=== PATIENT | female | born 1995 ===

== ENCOUNTER 2018-02-11 05:31 | Outpatient (CLI) | payer SELFPAY ==
[~2018-02-11] VITALS: Ht 177.8 cm; Wt 97.5 kg
== END 2018-02-11 11:14 | disposition home or self-care (01) ==
LOC: PREOP 05:31
PROVIDERS: ATTEND Otolaryngology Otolaryngology/Facial Plastic Surgery
DX: Z01.818 Encounter for other preprocedural examination (principal)

== ENCOUNTER 2018-02-15 06:20 | Day surgery (SDC) | payer BC ==
[~2018-02-15] VITALS: Ht 177.8 cm; Wt 97.5 kg
--- OUTSIDE RECORDS SUMMARY | 2018-02-15 06:23 | XMS REPORT ---
Author Author [facility] Medical Staff Organization [facility] Address [address] [place] [id number] Phone [phone] Summary purpose TRANSITION OF CARE AUTO GENERATION Chief Complaint and Reason for Visit No authorized Reason for Visit (Admitting Diagnosis) is available for this visit. Problem list No authorized problems tracked for continuity of care are available for this visit. Encounters No authorized problems tracked for encounter diagnoses are available for this visit. Medications No medications recorded for this patient visit Allergies, adverse reactions, alerts Allergen Category Ingredient Status Reaction Severity Onset Penicillins Drug Allergy Penicillins Confirmed or Verified Immunizations No immunizations recorded for this patient visit Relevant diagnostic tests and/or laboratory data No authorized results are available for this patient visit History of procedures No procedures recorded for this patient visit. Functional status No functional or cognitive status observations are available for this visit. Vital signs No authorized vital signs are available for this visit. Social history No Social History or smoking status observations were recorded for this visit. ( Unknown if ever smoked.) Treatment Plan No treatment plan text is available for this visit. Hospital discharge instructions No discharge instruction text is available for this visit.
--- OUTSIDE RECORDS SUMMARY | 2018-02-15 06:23 | XMS REPORT ---
Author Author [facility] [employer] [facility] Medical Staff Organization [facility] Address [address] [place] [id number] Phone [phone] Summary purpose TRANSITION OF CARE AUTO GENERATION [...] visit Relevant diagnostic tests and/or laboratory data RESULTS [facility] ([facility]) [id number] Result Normal Range Units Chlamydia Trachomatis DNA NOT DETECTED NOT DETECTED Neisseria Gonorrhea DNA NOT DETECTED NOT DETECTED Notes SEE NOTE This test was performed using the APTIMA COMBO2 Assay ([employer] The analytical performance characteristics of this assay, when used to test SurePath specimens have been determined by [employer]. TEST PERFORMED AT: [facility] [id number] [place] [address] KALPANA PAIGE DO,MPH Reference Lab ([facility]) [id number]:00 Result Normal Range Units Chlamydia Trachomatis DNA NOT DETECTED NOT DETECTED Neisseria Gonorrhea DNA NOT DETECTED NOT DETECTED Notes SEE NOTE This test was performed using the APTIMA COMBO2 Assay ([employer] The analytical performance characteristics of this assay, when used to test SurePath specimens have been determined by [facility] [facility]. TEST PERFORMED AT: [facility] [address] [place] [address] KALPANA PAIGE DO,MPH History of procedures Procedure Code Code Type Description Date Performed Performing Physician [id number] CPT-4 CHYLMD TRACH, DNA, AMP PROBE 11-01-2015 KONG SHINE Functional status No functional or cognitive status [...]
--- OUTSIDE RECORDS SUMMARY | 2018-02-15 06:24 | XMS REPORT | Clinical Summary ---
Author Author Admin, [employer] Organization [employer] Address Unknown Phone Unavailable Allergies, Adverse Reactions, Alerts Allergy Name Reaction Description Start Date Severity Status Provider PCN Critical Active Daniele Mcfadden DO Conditions or Problems Problem Name Problem Code Onset Date Status Entry Date Provider Comment Standard Description Annotate ALLERGIC RHINITIS 477.9 Resolved Errol Pack MD Allergic rhinitis, cause unspecified CONCUSSION WITH LOC OF 30 MINUTES OR LESS 850.11 Resolved 11/26 Margarito Kelley MD Concussion with loss of consciousness of 30 minutes or less ASTHMA 493.90 Active Margarito Kelley MD Asthma, unspecified BRONCHITIS, ACUTE 466.0 Resolved Errol Pack MD Acute bronchitis COSTOCHONDRITIS, ACUTE 733.6 Resolved Errol Pack MD Tietze's disease PLANTAR WART 078.12 Resolved Whitley Hernandez Plantar wart KNEE PAIN, RIGHT 719.46 Resolved Errol Pack MD Pain in joint involving lower leg ATHLETIC PHYSICAL, NORMAL V70.3 Resolved Errol Pack MD Other general medical examination for administrative purposes MUSCLE RUPTURE, NONTRAUMATIC 728.83 Resolved Errol Pack MD Rupture of muscle, nontraumatic Abdominal pain 789.00 Correction Errol Pack MD Abdominal pain, unspecified site Biliary dyskinesia 575.8 Resolved Whitley Hernandez Other specified disorders of gallbladder U R I 465.9 Inactive Daniele Mcfadden DO Acute upper respiratory infections of unspecified site Abdominal pain 789.00 Resolved Kendell Coronado MD Abdominal pain, unspecified site Ankle sprain 845.00 Resolved Kendell Coronado MD Unspecified site of ankle sprain Pharyngitis 462 Resolved Annita Mejia MD PhD Acute pharyngitis Sinusitis, acute 461.9 Resolved Margarito Kelley MD Acute sinusitis, unspecified Fatigue 780.79 Resolved Margarito Kelley MD Other malaise and fatigue Vaccination against influenza V04.81 Resolved Margarito Kelley MD Need for prophylactic vaccination and inoculation against influenza Flank pain, right 789.09 Resolved Margarito Kelley MD Abdominal pain, other specified site; multiple sites Pharyngitis, acute 462 Resolved Margarito Kelley MD Acute pharyngitis Knee pain, left 719.46 Resolved Margarito Kelley MD Pain in joint involving lower leg Upper respiratory infection, viral 465.9 Resolved Whitley Hernandez Acute upper respiratory infections of unspecified site Sinusitis 473.9 Resolved Whitley Hernandez Unspecified sinusitis (chronic) Eustachian tube dysfunction, right 381.81 Resolved Whitley Hernandez Dysfunction of Eustachian tube Pharyngitis-Acute 462 Resolved Whitley Hernandez Acute pharyngitis URI 465.9 Resolved Whitley Hernandez Acute upper respiratory infections of unspecified site Allergic rhinitis 477.9 Resolved Whitley Hernandez Allergic rhinitis, cause unspecified Acute rhinosinusitis 461.9 Resolved Whitley Hernandez Acute sinusitis, unspecified Fever 780.60 Resolved Whitley Hernandez Fever, unspecified Immunization due V15.83 Resolved Whitley Hernandez Personal history of underimmunization status U R I 465.9 Resolved Daniele Mcfadden DO Acute upper respiratory infections of unspecified site Pharyngitis-Acute 462 Resolved Daniele Mcfadden DO Acute pharyngitis Hypertrophy, nasal turbinates 478.0 Active Whitley Hernandez Hypertrophy of nasal turbinates Chronic tonsillitis 474.00 Active Daniele Mcfadden DO Chronic tonsillitis Body Mass Index 31.0-31.9 Adult Active Daniele Mcfadden DO Body Mass Index 31.0-31.9, adult ALLERGIC RHINITIS ICD-477.9 Inactive Errol Pack MD CONCUSSION WITH LOC OF 30 MINUTES OR LESS ICD-850.11 Inactive Margarito Kelley MD BRONCHITIS, ACUTE ICD-466.0 Inactive Errol Pack MD COSTOCHONDRITIS, ACUTE ICD-733.6 Inactive Errol Pack MD PLANTAR WART ICD-078.12 Inactive Katie Gipson LPN KNEE PAIN, RIGHT ICD-719.46 Inactive Errol Pack MD ATHLETIC PHYSICAL, NORMAL ICD-V70.3 Inactive Errol Pack MD MUSCLE RUPTURE, NONTRAUMATIC ICD-728.83 Inactive Errol Pack MD Abdominal pain ICD-789.00 Inactive Errol Pack MD Biliary dyskinesia ICD-575.8 Inactive Katie Gipson CARTON LINER U R I ICD-465.9 Inactive Daniele Mcfadden DO Abdominal pain ICD-789.00 Inactive Kendell Coronado MD Ankle sprain ICD-845.00 Inactive Kendell Coronado MD Pharyngitis ICD-462 Inactive Annita Mejia MD PhD Sinusitis, acute ICD-461.9 Inactive Margarito Kelley MD Fatigue ICD-780.79 Inactive Margarito Kelley MD 2014 Vaccination against influenza ICD-V04.81 Inactive Margarito Kelley MD Flank pain, right ICD-789.09 Inactive Margarito Kelley MD Pharyngitis, acute ICD-462 Inactive Margarito Kelley MD Knee pain, left ICD-719.46 Inactive Margarito Kelley MD Upper respiratory infection, viral ICD-465.9 Inactive Katie Brandan BOWMAN Sinusitis ICD-473.9 Inactive Katie Gipson LPN 2017 Eustachian tube dysfunction, right ICD-381.81 Inactive Katie Gipson CARTON LINER Pharyngitis-Acute ICD-462 Inactive Katie Gipson CARTON LINER URI ICD-465.9 Inactive Katie Gipson CARTON LINER Allergic rhinitis ICD-477.9 Inactive Katie Gipson CARTON LINER Acute rhinosinusitis ICD-461.9 Inactive Katie Gipson LPN Fever ICD-780.60 Inactive Katie Gipson LPN Immunization due ICD-V15.83 Inactive Katie Gipson LPN U R I ICD-465.9 Inactive Holly Sharma Pharyngitis-Acute ICD-462 Inactive Daniele Mcfadden DO Medication List Medication Instructions Start Date Stop Date Generic Name NDC Status Provider Patient Instruction PREDNISONE 20 MG ORAL TABLET 2 tabs by mouth today, then 1 tab tomorrow 08/30 PREDNISONE 51278971262 No Longer Active Daniele Mcfadden DO Active FLUTICASONE PROPIONATE 50 MCG/ACT NASAL SUSPENSION 1 spray each nostril twice daily until bottle empty FLUTICASONE PROPIONATE 22525020142 Active Daniele Mcfadden DO Active PREDNISONE 10 MG ORAL TABLET 2 TABS BY MOUTH TODAY, THEN 1 TAB BY MOUTH DAYS 2 -5 PREDNISONE 10192246473 No Longer Active Daniele Mcfadden DO Active PREDNISONE 20 MG ORAL TABLET two tabs by mouth today, then one tab by mouth days two and three PREDNISONE 02396506812 No Longer Active Whitley Hernandez Active AZITHROMYCIN 250 MG ORAL TABLET 2 po qd x 1 day, then 1 po qd x 4 days 07/24 AZITHROMYCIN 29280444582 No Longer Active Daniele Mcfadden DO Active IRVING-D ALLERGY & CONGESTION 60-120 MG ORAL TABLET EXTENDED RELEASE 12 HOUR 1 tablet twice daily as needed for congestion/allergies FEXOFENADINE-PSEUDOEPHEDRINE 19816916239 Active Holly Sharma Active PREDNISONE 20 MG ORAL TABLET 2 tabs daily for 3 days, 1 tab daily for 3 days, 1/2 tab daily for 2 days start tomorrow 07/31/16 PREDNISONE 54650479715 No Longer Active Jillina Frazell BRICKMASON SUPERVISOR Active AZITHROMYCIN 250 MG ORAL TABLET 2 po qd x 1 day, then 1 po qd x 4 days 08/30 AZITHROMYCIN 53661146921 No Longer Active Jillina Jiml BRICKMASON SUPERVISOR Active MUCINEX D 60-600 MG ORAL TABLET EXTENDED RELEASE 12 HOUR 1 po BID PRN Congestion PSEUDOEPHEDRINE-GUAIFENESIN 73305848316 No Longer Active Jessika Nunes APRN Active CEFDINIR 300 MG ORAL CAPSULE 1 po BID x 10 days CEFDINIR 90742153552 No Longer Active Ezekielllina Alexandru BRICKMASON SUPERVISOR Active PREDNISONE 20 MG ORAL TABLET 2 tabs daily for 3 days, 1 tab daily for 3 days, 1/2 tab daily for 2 days PREDNISONE 57987330543 No Longer Active Ezekielllina Jiml BRICKMASON SUPERVISOR Active FLUTICASONE PROPIONATE 50 MCG/ACT NASAL SUSPENSION 1 to 2 sprays each nostril daily FLUTICASONE PROPIONATE 83769645281 No Longer Active Ezekielllina Alexandru BRICKMASON SUPERVISOR Active GUAIFENESIN ER 600 MG ORAL TABLET EXTENDED RELEASE 12 HOUR 1 twice a day as needed for congestion GUAIFENESIN 06891468542 No Longer Active Ezekielllina Alexandru BRICKMASON SUPERVISOR Active CEFDINIR 300 MG ORAL CAPSULE by mouth twice a day CEFDINIR 89728636180 No Longer Active Ezekielllina Alexandru ONTIVEROSN Active PREDNISONE 20 MG ORAL TABLET 1 tablet twice daily for 2 days, then 1 tablet once daily for 2 days PREDNISONE 50902909817 No Longer Active Jillina Jiml BRICKMASON SUPERVISOR Active PREDNISONE 20 MG ORAL TABLET 2 tabs daily for 3 days, 1 tab daily for 3 days, 1/2 tab daily for 2 days PREDNISONE 87150575003 No Longer Active Margarito Kelley MD Active IRVING-D ALLERGY & CONGESTION TABLET EXTENDED RELEASE 12 HOUR 1 po bid 05/26 FEXOFENADINE-PSEUDOEPHEDRINE [id number] 61505622030 No Longer Active Margarito Kelley MD Active PREDNISONE 20 MG ORAL TABLET 2 tabs daily for 3 days, 1 tab daily for 3 days, 1/2 tab daily for 2 days PREDNISONE 08016389971 No Longer Active Ezekielllina Fratracey JOHNSON Active CEFDINIR 300 MG ORAL CAPSULE 1 cap by mouth twice a day CEFDINIR 47833082943 No Longer Active Jillina Frazell BRICKMASON SUPERVISOR Active E-Z SPACER DEVICE use with proair inhalier every 4 times as need. SPACER/AERO-HOLDING CHAMBERS 41905476723 No Longer Active Jillina Framarkl ALEX Active PROAIR HFA 108 (90 Base) MCG/ACT INHALATION AEROSOL SOLUTION 2 puffs every 4 hours as needed ALBUTEROL SULFATE 32723028496 No Longer Active Ezekielllsd Fernandezl BRICKMASON SUPERVISOR Active CEFTIN 500 MG ORAL TABLET 1 tablet by mouth twice daily for ten days. CEFUROXIME AXETIL 49945666487 No Longer Active Griselda Horvath APRN Active PREDNISONE 20 MG ORAL TABLET 2 tabs daily for 3 days, 1 tab daily for 3 days, 1/2 tab daily for 2 days PREDNISONE 19783764991 No Longer Active Margarito Kelley MD Active CEPHALEXIN 500 MG ORAL CAPSULE 1 tablet by mouth three times daily for ten days CEPHALEXIN 68153260222 No Longer Active Renée Adames APRN Active MEDROL 4 MG ORAL TABLET THERAPY PACK 6 pills on day 1, 5 pills on day 2, 4 pills on day 3, 4 pills on day 4, 2 pills on day 5, 1 pill on day 6 METHYLPREDNISOLONE 55415528198 No Longer Active Annita Mejia MD PhD Active ZITHROMAX Z-MARY 250 MG ORAL TABLET 2 today and then 1 daily for 4 days 03/11 AZITHROMYCIN 83137405398 No Longer Active Annita Mejia MD PhD Active GUAIFENESIN-CODEINE 100-10 MG/5ML ORAL SYRUP 5ml every 4 to 6 hours as needed for cough GUAIFENESIN-CODEINE 18912584360 No Longer Active Annita Mejia MD PhD Active FLONASE 50 MCG/ACT NASAL SUSPENSION 1 spray each nostril am and hs FLUTICASONE PROPIONATE 15568140812 No Longer Active Kendell Coronado MD Active MELOXICAM 15 MG ORAL TABLET 1 po q day for pain with food MELOXICAM 85347336418 No Longer Active Kendell Coronado MD Active HYDROCODONE-ACETAMINOPHEN 5-325 MG ORAL TABLET 1-2 q 4-6 hrs prn pain 20 tabs HYDROCODONE-ACETAMINOPHEN 47017054662 No Longer Active Daniele Mcfadden DO Active PREDNISONE 20 MG ORAL TABLET 1 tablet twice daily for 2 days, then 1 tablet once daily for 2 days PREDNISONE 08594009576 No Longer Active Daniele Mcfadden DO Active PREDNISONE 20 MG ORAL TABLET 1 po bid 2 days, then daily for 2 days PREDNISONE 76831734214 No Longer Active Alexander LOPEZ Active AZITHROMYCIN 250 MG ORAL TABLET 2 po qd x 1 day, then 1 po qd x 4 days 08/05 AZITHROMYCIN 55739710254 No Longer Active Daniele Mcfadden DO Active MUCINEX MAXIMUM STRENGTH TABLET EXTENDED RELEASE 12 HOUR 1 po qd GUAIFENESIN [id number] 39446860015 No Longer Active Daniele Mcfadden DO Active AZITHROMYCIN 250 MG ORAL TABLET 2 po qd x 1 day, then 1 po qd x 4 days 11/26 AZITHROMYCIN 99472136847 No Longer Active Margarito Kelley MD Active MUCINEX MAXIMUM STRENGTH TABLET EXTENDED RELEASE 12 HOUR 1 po qd MUCINEX MAXIMUM STRENGTH TABLET EXTENDED RELEASE 12 HOUR GUAIFENESIN [id number] Inactive PREDNISONE 20 MG ORAL TABLET 1 po bid 2 days, then daily for 2 days PREDNISONE 20 MG ORAL TABLET 618591 PREDNISONE Inactive PREDNISONE 20 MG ORAL TABLET 1 tablet twice daily for 2 days, then 1 tablet once daily for 2 days PREDNISONE 20 MG ORAL TABLET 266761 PREDNISONE Inactive HYDROCODONE-ACETAMINOPHEN 5-325 MG ORAL TABLET 1-2 q 4-6 hrs prn pain 20 tabs HYDROCODONE-ACETAMINOPHEN 5-325 MG ORAL TABLET 247382 HYDROCODONE-ACETAMINOPHEN Inactive MELOXICAM 15 MG ORAL TABLET 1 po q day for pain with food MELOXICAM 15 MG ORAL TABLET 123134 MELOXICAM Inactive FLONASE 50 MCG/ACT NASAL SUSPENSION 1 spray each nostril am and hs FLONASE 50 MCG/ACT NASAL SUSPENSION 5411155 FLUTICASONE PROPIONATE Inactive GUAIFENESIN-CODEINE 100-10 MG/5ML ORAL SYRUP 5ml every 4 to 6 hours as needed for cough GUAIFENESIN-CODEINE 100-10 MG/5ML ORAL SYRUP 081465 GUAIFENESIN-CODEINE Inactive ZITHROMAX Z-MARY 250 MG ORAL TABLET 2 today and then 1 daily for 4 days 03/11 ZITHROMAX Z-MARY 250 MG ORAL TABLET 382429 AZITHROMYCIN Inactive CEFTIN 500 MG ORAL TABLET 1 tablet by mouth twice daily for ten days. CEFTIN 500 MG ORAL TABLET CEFUROXIME AXETIL Inactive PROAIR HFA 108 (90 Base) MCG/ACT INHALATION AEROSOL SOLUTION 2 puffs every 4 hours as needed PROAIR HFA 108 (90 Base) MCG/ACT INHALATION AEROSOL SOLUTION ALBUTEROL SULFATE Inactive E-Z SPACER DEVICE use with proair inhalier every 4 times as need. E-Z SPACER DEVICE SPACER/AERO-HOLDING CHAMBERS Inactive IRVING-D ALLERGY & CONGESTION TABLET EXTENDED RELEASE 12 HOUR 1 po bid 05/26 RIVING-D ALLERGY & CONGESTION TABLET EXTENDED RELEASE 12 HOUR FEXOFENADINE-PSEUDOEPHEDRINE [id number] Inactive PREDNISONE 20 MG ORAL TABLET 1 tablet twice daily for 2 days, then 1 tablet once daily for 2 days PREDNISONE 20 MG ORAL TABLET 752325 PREDNISONE Inactive GUAIFENESIN ER 600 MG ORAL TABLET EXTENDED RELEASE 12 HOUR 1 twice a day as needed for congestion GUAIFENESIN ER 600 MG ORAL TABLET EXTENDED RELEASE 12 HOUR GUAIFENESIN Inactive FLUTICASONE PROPIONATE 50 MCG/ACT NASAL SUSPENSION 1 to 2 sprays each nostril daily FLUTICASONE PROPIONATE 50 MCG/ACT NASAL SUSPENSION 8989899 FLUTICASONE PROPIONATE Inactive MUCINEX D 60-600 MG ORAL TABLET EXTENDED RELEASE 12 HOUR 1 po BID PRN Congestion MUCINEX D 60-600 MG ORAL TABLET EXTENDED RELEASE 12 HOUR PSEUDOEPHEDRINE-GUAIFENESIN Inactive PREDNISONE 20 MG ORAL TABLET two tabs by mouth today, then one tab by mouth days two and three PREDNISONE 20 MG ORAL TABLET 272156 PREDNISONE Inactive PREDNISONE 10 MG ORAL TABLET 2 TABS BY MOUTH TODAY, THEN 1 TAB BY MOUTH DAYS 2 -5 PREDNISONE 10 MG ORAL TABLET 307800 PREDNISONE Inactive PREDNISONE 20 MG ORAL TABLET 2 tabs by mouth today, then 1 tab tomorrow 08/30 PREDNISONE 20 MG ORAL TABLET 615417 PREDNISONE Inactive AZITHROMYCIN 250 MG ORAL TABLET 2 po qd x 1 day, then 1 po qd x 4 days 11/26 AZITHROMYCIN 250 MG ORAL TABLET 675052 AZITHROMYCIN Inactive AZITHROMYCIN 250 MG ORAL TABLET 2 po qd x 1 day, then 1 po qd x 4 days 08/05 AZITHROMYCIN 250 MG ORAL TABLET 263235 AZITHROMYCIN Inactive MEDROL 4 MG ORAL TABLET THERAPY PACK 6 pills on day 1, 5 pills on day 2, 4 pills on day 3, 4 pills on day 4, 2 pills on day 5, 1 pill on day 6 MEDROL 4 MG ORAL TABLET THERAPY PACK 573741 METHYLPREDNISOLONE Inactive CEPHALEXIN 500 MG ORAL CAPSULE 1 tablet by mouth three times daily for ten days CEPHALEXIN 500 MG ORAL CAPSULE 696807 CEPHALEXIN Inactive PREDNISONE 20 MG ORAL TABLET 2 tabs daily for 3 days, 1 tab daily for 3 days, 1/2 tab daily for 2 days PREDNISONE 20 MG ORAL TABLET 320053 PREDNISONE Inactive CEFDINIR 300 MG ORAL CAPSULE 1 cap by mouth twice a day CEFDINIR 300 MG ORAL CAPSULE 524386 CEFDINIR Inactive PREDNISONE 20 MG ORAL TABLET 2 tabs daily for 3 days, 1 tab daily for 3 days, 1/2 tab daily for 2 days PREDNISONE 20 MG ORAL TABLET 353984 PREDNISONE Inactive PREDNISONE 20 MG ORAL TABLET 2 tabs daily for 3 days, 1 tab daily for 3 days, 1/2 tab daily for 2 days PREDNISONE 20 MG ORAL TABLET 039956 PREDNISONE Inactive CEFDINIR 300 MG ORAL CAPSULE by mouth twice a day CEFDINIR 300 MG ORAL CAPSULE 478235 CEFDINIR Inactive PREDNISONE 20 MG ORAL TABLET 2 tabs daily for 3 days, 1 tab daily for 3 days, 1/2 tab daily for 2 days PREDNISONE 20 MG ORAL TABLET 618884 PREDNISONE Inactive CEFDINIR 300 MG ORAL CAPSULE 1 po BID x 10 days CEFDINIR 300 MG ORAL CAPSULE 827504 CEFDINIR Inactive AZITHROMYCIN 250 MG ORAL TABLET 2 po qd x 1 day, then 1 po qd x 4 days 08/30 AZITHROMYCIN 250 MG ORAL TABLET 546543 AZITHROMYCIN Inactive PREDNISONE 20 MG ORAL TABLET 2 tabs daily for 3 days, 1 tab daily for 3 days, 1/2 tab daily for 2 days start tomorrow 07/31/16 PREDNISONE 20 MG ORAL TABLET 327479 PREDNISONE Inactive AZITHROMYCIN 250 MG ORAL TABLET 2 po qd x 1 day, then 1 po qd x 4 days 07/24 AZITHROMYCIN 250 MG ORAL TABLET 060632 AZITHROMYCIN Inactive Immunizations Vaccine Administration Date Value Standard Description Human Papillomavirus vaccine (Gardasil) #2, (HPV #2) Gardasil [ [id number]] human papilloma virus vaccine, quadrivalent Seasonal influenza vaccine, injectable, containing preservative, for > 3 years old (Afluria, FluLaval, Fluzone, Fluvirin, Fluarix, Agriflu(>=18 yo)) Fluzone (>3 yrs.) [[id number]] Influenza, seasonal, injectable Human Papillomavirus Vaccine (Gardasil) #1 Given (HPV #1) Gardasil [CVX62] human papilloma virus vaccine, quadrivalent hepatitis A immunization #2 Havrix-Pedi hepatitis A vaccine, unspecified formulation Boostrix (Tetanus toxoid, reduced diphtheria toxoid and acellular pertussis vaccine, adsorbed), booster Boostrix [[id number]] tetanus toxoid, reduced diphtheria toxoid, and acellular pertussis vaccine, adsorbed hepatitis A immunization #1 Havrix-Pedi hepatitis A vaccine, unspecified formulation DPT immunization #5 DTaP oral polio vaccine (OPV) #4 IPV poliovirus vaccine, unspecified formulation MMR (measles, mumps, rubella) virus immunization #2 MMR DPT immunization #4 DTaP Hemophilus influenza B immunization #4 Historical Haemophilus influenzae type b vaccine, conjugate unspecified formulation oral polio vaccine (OPV) #3 IPV poliovirus vaccine, unspecified formulation MMR (measles, mumps, rubella) virus immunization #1 MMR hepatitis B vaccine #3 Historical hepatitis B vaccine, unspecified formulation DPT immunization #3 DTaP Hemophilus influenza B immunization #3 ProHIBit Haemophilus influenzae type b vaccine, conjugate unspecified formulation DPT immunization #2 DTaP Hemophilus influenza B immunization #2 Historical Haemophilus influenzae type b vaccine, conjugate unspecified formulation oral polio vaccine (OPV) #2 IPV poliovirus vaccine, unspecified formulation hepatitis B vaccine #2 given Historical hepatitis B vaccine, unspecified formulation DPT immunization #1 DTaP Hemophilus influenza B immunization #1 Historical Haemophilus influenzae type b vaccine, conjugate unspecified formulation oral polio vaccine (OPV) #1 IPV poliovirus vaccine, unspecified formulation hepatitis B vaccine #1 given Historical hepatitis B vaccine, unspecified formulation Vital Signs Date Name Value Unit Range Description blood pressure, diastolic, repeated by physician 77 BP herndon blood pressure, diastolic 77 mm[Hg] BP herndon blood pressure, systolic, repeated by physician 113 BP sys blood pressure, systolic 113 mm[Hg] BP sys height E&M 70 [in_us] Bdy height pulse rate E&M 72 /min Heart rate temperature E&M 98.3 [degF] Body temperature weight E&M 216.31 [lb_av] Weight Measured blood pressure, diastolic 66 mm[Hg] BP herndon blood pressure, systolic 110 mm[Hg] BP sys height E&M 70 [in_us] Bdy height pulse rate E&M 89 /min Heart rate temperature E&M 98.1 [degF] Body temperature weight E&M 207.5 [lb_av] Weight Measured blood pressure, diastolic 79 mm[Hg] BP herndon blood pressure, systolic 126 mm[Hg] BP sys height E&M 70 [in_us] Bdy height pulse rate E&M 99 /min Heart rate temperature E&M 98.2 [degF] Body temperature weight E&M 205 [lb_av] Weight Measured blood pressure, diastolic 65 mm[Hg] BP herndon blood pressure, systolic 115 mm[Hg] BP sys height E&M 70 [in_us] Bdy height pulse rate E&M 86 /min Heart rate temperature E&M 98.3 [degF] Body temperature weight E&M 206.31 [lb_av] Weight Measured Diagnostic Results Date Name Value Unit Range Description Lab Report: Rapid Strep - Lab Microbial identification kit, rapid strep method Negative Negative Lab Report: RapidStrep Rflx/Cx, MONO w/Rflx EBV - Lab Microbial identification kit, rapid strep method Negative-Throat Culture to Follow Negative Encounters Code Encounter Date Provider Facility CPT-33920 Level 3 Est. Patient 16:00:45 CDT Daniele Mcfadden DO [facility] CPT-89578 Level 3 Est. Patient 15:57:40 CDT Daniele [facility] CPT-04133 Level 3 Est. Patient 09:35:49 HOME IMPROVEMENT ADVISOR Daniele Mcfadden [facility] CPT-52311 Level 3 Est. Patient 09:35:25 HOME IMPROVEMENT ADVISOR Daniele Mcfadden [facility] CPT-73479 Level 3 Est. Patient 16:03:55 HOME IMPROVEMENT ADVISOR Whitley Quiroz [facility] CPT-42421 Level 3 Est. Patient 17:42:49 HOME IMPROVEMENT ADVISOR Whitley Quiroz [facility] CPT-97272 Level 3 Est. Patient 10:49:47 HOME IMPROVEMENT ADVISOR Griselda Horvath [facility] CPT-11440 Level 3 Est. Patient 08:43:59 HOME IMPROVEMENT ADVISOR Jessika Nunes [facility] CPT-15099 Level 3 Est. Patient 09:05:19 HOME IMPROVEMENT ADVISOR Griselda Horvath [facility] CPT-41277 Level 3 Est. Patient 15:45:46 CDT Griselda Horvath [facility] CPT-13224 Level 3 Est. Patient 14:15:52 CDT Daniele Mcfadden [facility] CPT-33349 Level 3 Est. Patient 13:57:19 HOME IMPROVEMENT ADVISOR Magrarito Kelley MD [facility] CPT-76359 Level 3 Est. Patient 09:16:05 HOME IMPROVEMENT ADVISOR Margarito Kelley MD [facility] CPT-02399 Level 3 Est. Patient 15:37:06 HOME IMPROVEMENT ADVISOR Daniele Mcfadden [facility] CPT-69860 Level 3 Est. Patient 11:56:34 HOME IMPROVEMENT ADVISOR Renée Adames [facility] CPT-59539 Level 3 Est. Patient 12:19:42 CDT Daniele Mcfadden [facility] CPT-58656 Level 3 Est. Patient 11:08:45 CDT Annita Mejia MD, PhD [facility] CPT-85386 Level 3 Est. Patient 12:00:17 CDT Kendell Coronado MD [facility] CPT-45488 Level 3 Est. Patient 12:27:25 CDT Daniele Gaetano Bogdan [facility] CPT-42237 Level 3 Est. Patient 18:45:11 HOME IMPROVEMENT ADVISOR Daniele Mcfadden [facility] CPT-89198 Level 3 Est. Patient 10:12:24 HOME IMPROVEMENT ADVISOR Daniele Mcfadden [facility] CPT-96989 Level 3 Est. Patient 14:35:11 HOME IMPROVEMENT ADVISOR Daniele Mcfadden [facility] CPT-66608 Level 3 Est. Patient 14:11:04 CDT Daniele Gaetano Bogdan [facility] CPT-04964 Level 3 Est. Patient 10:52:13 CDT Alexander LOPEZ [facility] CPT-20834 Level 3 Est. Patient 11:01:08 HOME IMPROVEMENT ADVISOR Daniele Mcfadden [facility] CPT-90325 Level 3 Est. Patient 10:55:35 CDT Daniele Salter [facility] CPT-57372 Level 3 Est. Patient 14:03:08 CDT Daniele Gaetano Mcfadden [facility] CPT-15334 Level 3 Est. Patient 11:26:19 CDT Margarito Kelley MD [facility] CPT-07601 Level 2 Est. Patient 15:32:04 HOME IMPROVEMENT ADVISOR Daniele Mcfadden [facility] CPT-13204 Level 3 Est. Patient 16:01:26 HOME IMPROVEMENT ADVISOR Daniele Mcfadden [facility] CPT-38286 Level 3 Est. Patient 06:37:10 HOME IMPROVEMENT ADVISOR Daniele Mcfadden [facility] Procedures Code Procedure Name Date Entry Date Standard Description CPT-61653 Addl Vx - Ix admin via ID IM or jet injects without counseling by physician 14:37:19 CDT CPT-06576 Meningococcal B, recombinant vaccine 14:37:19 CDT 03/05 CPT-05524 First Vx - Ix admin via ID IM or jet injects without counseling by physician 14:37:19 CDT CPT-66601 Menveo Intramuscular Solution Reconstituted 14:37:19 CDT CPT-49064 Meningococcal Conjugate Vacine (Menactra) 11:20:04 CDT CPT-10760 Throat Culture - LAB USE ONLY 12:15:45 HOME IMPROVEMENT ADVISOR CPT-30872 Misa Flu A/B - LAB USE ONLY 12:15:45 HOME IMPROVEMENT ADVISOR CPT-08294 Rapid Strep (Reflex throat) - LAB USE ONLY 12:15:45 HOME IMPROVEMENT ADVISOR CPT-02722 Rapid Strep (Grp A) - LAB USE ONLY 13:06:06 CDT CPT-78973 Abd compl w upright 12:34:39 CDT CPT-99816 Immunization Single Admin 11:38:41 CDT CPT-90186 Fluzone Quadrivalent Intramuscular Suspension 0.5 ML 11: 38:41 CDT CPT-OV Office Visit 14:45:12 HOME IMPROVEMENT ADVISOR CPT-62096 [employer] all organs plus proximal aorta and distal IVC 2012 12:13:02 HOME IMPROVEMENT ADVISOR CPT-49702 Abd compl w upright 15:12:58 HOME IMPROVEMENT ADVISOR CPT-45184 Venipuncture Draw Fee 14:38:32 HOME IMPROVEMENT ADVISOR CPT-74270 Administration single or combination vaccine inc oral 17 :10:04 CDT CPT-27146 Gardasil 17:10:04 CDT CPT-99519 Venipuncture Draw Fee 16:07:54 HOME IMPROVEMENT ADVISOR CPT-52405 Administration 2+ single or combination vaccines inc oral 17:22:02 CDT CPT-30791 Administration single or combination vaccine inc oral 17 :22:02 CDT CPT-30083 Influenza split virus > age 3 17:22:02 CDT CPT-31658 Gardasil 17:22:02 CDT CPT-61167 Administration 2+ single or combination vaccines inc oral 14:38:31 CDT CPT-67802 Administration single or combination vaccine inc oral 14 :38:31 CDT CPT-67001 Meningococcal Conjugate Vacine (Menactra) 14:38:31 CDT CPT-65004 Gardasil 14:38:31 CDT
--- OUTSIDE RECORDS SUMMARY | 2018-02-15 06:25 | XMS REPORT | Clinical Summary ---
Author Author Admin, [facility] Organization [facility] Address Unknown Phone Unavailable Allergies, Adverse Reactions, [...] MD Biliary dyskinesia ICD-575.8 Inactive Katie Gipson TOE STAPLER U R I ICD-465.9 Inactive Daniele Mcfadden [...] tube dysfunction, right ICD-381.81 Inactive Katie Gipson TOE STAPLER Pharyngitis-Acute ICD-462 Inactive Katie Gipson TOE STAPLER URI ICD-465.9 Inactive Katie Gipson TOE STAPLER Allergic rhinitis ICD-477.9 Inactive Katie Gipson TOE STAPLER Acute rhinosinusitis ICD-461.9 Inactive Katie Gipson LPN [...] today, then 1 tab tomorrow 08/30 PREDNISONE [id number] No Longer Active Daniele Mcfadden DO Active FLUTICASONE PROPIONATE 50 MCG/ACT NASAL SUSPENSION 1 spray each nostril twice daily until bottle empty FLUTICASONE PROPIONATE 56042795089 Active Daniele Mcfadden DO Active PREDNISONE 10 MG ORAL TABLET 2 TABS BY MOUTH TODAY, THEN 1 TAB BY MOUTH DAYS 2 -5 PREDNISONE 87343367314 No Longer Active Daniele Mcfadden DO Active PREDNISONE 20 MG ORAL TABLET two tabs by mouth today, then one tab by mouth days two and three PREDNISONE 63160371669 No Longer Active Whitley Hernandez Active AZITHROMYCIN 250 MG ORAL TABLET 2 po qd x 1 day, then 1 po qd x 4 days 07/24 AZITHROMYCIN 24962568735 No Longer Active Daniele Mcfadden DO Active IRVING-D ALLERGY & CONGESTION 60-120 MG ORAL TABLET EXTENDED RELEASE 12 HOUR 1 tablet twice daily as needed for congestion/allergies FEXOFENADINE-PSEUDOEPHEDRINE 71002154736 Active Holly Sharma Active PREDNISONE 20 MG ORAL TABLET 2 tabs daily for 3 days, 1 tab daily for 3 days, 1/2 tab daily for 2 days start tomorrow 07/31/16 PREDNISONE 12410917199 No Longer Active Jillina Frazell DIRECTOR HEMATOLOGY Active AZITHROMYCIN 250 MG ORAL TABLET 2 po qd x 1 day, then 1 po qd x 4 days 08/30 AZITHROMYCIN 34335228301 No Longer Active Jillina Jiml DIRECTOR HEMATOLOGY Active MUCINEX D 60-600 MG ORAL TABLET EXTENDED RELEASE 12 HOUR 1 po BID PRN Congestion PSEUDOEPHEDRINE-GUAIFENESIN 93269269376 No Longer Active Jessika Nunes APRN Active CEFDINIR 300 MG ORAL CAPSULE 1 po BID x 10 days CEFDINIR 59854017390 No Longer Active Ezekielllina Alexandru DIRECTOR HEMATOLOGY Active PREDNISONE 20 MG ORAL TABLET 2 tabs daily for 3 days, 1 tab daily for 3 days, 1/2 tab daily for 2 days PREDNISONE 81119591705 No Longer Active Ezekielllina Jiml DIRECTOR HEMATOLOGY Active FLUTICASONE PROPIONATE 50 MCG/ACT NASAL SUSPENSION 1 to 2 sprays each nostril daily FLUTICASONE PROPIONATE 66271444179 No Longer Active Ezekielllina Alexandru DIRECTOR HEMATOLOGY Active GUAIFENESIN ER 600 MG ORAL TABLET EXTENDED RELEASE 12 HOUR 1 twice a day as needed for congestion GUAIFENESIN 92822825538 No Longer Active Ezekielllina Alexandru DIRECTOR HEMATOLOGY Active CEFDINIR 300 MG ORAL CAPSULE by mouth twice a day CEFDINIR 90271647081 No Longer Active Ezekielllina Alexandru ONTIVEROSN Active PREDNISONE 20 MG ORAL TABLET 1 tablet twice daily for 2 days, then 1 tablet once daily for 2 days PREDNISONE 54445377687 No Longer Active Jillina Jiml DIRECTOR HEMATOLOGY Active PREDNISONE 20 MG ORAL TABLET 2 tabs daily for 3 days, 1 tab daily for 3 days, 1/2 tab daily for 2 days PREDNISONE 02195665963 No Longer Active Margarito Kelley MD Active IRVING-D ALLERGY & CONGESTION TABLET EXTENDED RELEASE 12 HOUR 1 po bid 05/26 FEXOFENADINE-PSEUDOEPHEDRINE [id number] 28591974847 No Longer Active Margarito Kelley MD Active PREDNISONE 20 MG ORAL TABLET 2 tabs daily for 3 days, 1 tab daily for 3 days, 1/2 tab daily for 2 days PREDNISONE 16263355971 No Longer Active Ezekielllina Fratracey JOHNSON Active CEFDINIR 300 MG ORAL CAPSULE 1 cap by mouth twice a day CEFDINIR 38511617344 No Longer Active Jillina Frazell DIRECTOR HEMATOLOGY Active E-Z SPACER DEVICE use with proair inhalier every 4 times as need. SPACER/AERO-HOLDING CHAMBERS 62507447177 No Longer Active Jillina Framarkl ALEX Active PROAIR HFA 108 (90 Base) MCG/ACT INHALATION AEROSOL SOLUTION 2 puffs every 4 hours as needed ALBUTEROL SULFATE 36027339052 No Longer Active Ezekielllsd Fernandezl DIRECTOR HEMATOLOGY Active CEFTIN 500 MG ORAL TABLET 1 tablet by mouth twice daily for ten days. CEFUROXIME AXETIL 98920448458 No Longer Active Griselda Horvath APRN Active PREDNISONE 20 MG ORAL TABLET 2 tabs daily for 3 days, 1 tab daily for 3 days, 1/2 tab daily for 2 days PREDNISONE 07241832109 No Longer Active Margarito Kelley MD Active CEPHALEXIN 500 MG ORAL CAPSULE 1 tablet by mouth three times daily for ten days CEPHALEXIN 41914136139 No Longer Active Renée Adames APRN Active MEDROL 4 MG ORAL TABLET THERAPY PACK 6 pills on day 1, 5 pills on day 2, 4 pills on day 3, 4 pills on day 4, 2 pills on day 5, 1 pill on day 6 METHYLPREDNISOLONE 30072277753 No Longer Active Annita Mejia MD PhD Active ZITHROMAX Z-MARY 250 MG ORAL TABLET 2 today and then 1 daily for 4 days 03/11 AZITHROMYCIN 71186008533 No Longer Active Annita Mejia MD PhD Active GUAIFENESIN-CODEINE 100-10 MG/5ML ORAL SYRUP 5ml every 4 to 6 hours as needed for cough GUAIFENESIN-CODEINE 61826940813 No Longer Active Annita Mejia MD PhD Active FLONASE 50 MCG/ACT NASAL SUSPENSION 1 spray each nostril am and hs FLUTICASONE PROPIONATE 96617298336 No Longer Active Kendell Coronado MD Active MELOXICAM 15 MG ORAL TABLET 1 po q day for pain with food MELOXICAM 21265510223 No Longer Active Kendell Coronado MD Active HYDROCODONE-ACETAMINOPHEN 5-325 MG ORAL TABLET 1-2 q 4-6 hrs prn pain 20 tabs HYDROCODONE-ACETAMINOPHEN 81977359498 No Longer Active Daniele Mcfadden DO Active PREDNISONE 20 MG ORAL TABLET 1 tablet twice daily for 2 days, then 1 tablet once daily for 2 days PREDNISONE 44394597117 No Longer Active Daniele Mcfadden DO Active PREDNISONE 20 MG ORAL TABLET 1 po bid 2 days, then daily for 2 days PREDNISONE 43173901343 No Longer Active Alexander LOPEZ Active AZITHROMYCIN 250 MG ORAL TABLET 2 po qd x 1 day, then 1 po qd x 4 days 08/05 AZITHROMYCIN 25210355710 No Longer Active Daniele Mcfadden DO Active MUCINEX MAXIMUM STRENGTH TABLET EXTENDED RELEASE 12 HOUR 1 po qd GUAIFENESIN [id number] 54364931815 No Longer Active Daniele Mcfadden DO Active AZITHROMYCIN 250 MG ORAL TABLET 2 po qd x 1 day, then 1 po qd x 4 days 11/26 AZITHROMYCIN 16680557131 No Longer Active Margarito Kelley MD Active MUCINEX MAXIMUM STRENGTH TABLET EXTENDED RELEASE 12 HOUR 1 po qd MUCINEX MAXIMUM STRENGTH TABLET EXTENDED RELEASE 12 HOUR GUAIFENESIN [id number] Inactive PREDNISONE 20 MG ORAL TABLET 1 po bid 2 days, then daily for 2 days PREDNISONE 20 MG ORAL TABLET 381422 PREDNISONE Inactive PREDNISONE 20 MG ORAL TABLET 1 tablet twice daily for 2 days, then 1 tablet once daily for 2 days PREDNISONE 20 MG ORAL TABLET 085272 PREDNISONE Inactive HYDROCODONE-ACETAMINOPHEN 5-325 MG ORAL TABLET 1-2 q 4-6 hrs prn pain 20 tabs HYDROCODONE-ACETAMINOPHEN 5-325 MG ORAL TABLET 443920 HYDROCODONE-ACETAMINOPHEN Inactive MELOXICAM 15 MG ORAL TABLET 1 po q day for pain with food MELOXICAM 15 MG ORAL TABLET 456782 MELOXICAM Inactive FLONASE 50 MCG/ACT NASAL SUSPENSION 1 spray each nostril am and hs FLONASE 50 MCG/ACT NASAL SUSPENSION 1236861 FLUTICASONE PROPIONATE Inactive GUAIFENESIN-CODEINE 100-10 MG/5ML ORAL SYRUP 5ml every 4 to 6 hours as needed for cough GUAIFENESIN-CODEINE 100-10 MG/5ML ORAL SYRUP 820484 GUAIFENESIN-CODEINE Inactive ZITHROMAX Z-MARY 250 MG ORAL TABLET 2 today and then 1 daily for 4 days 03/11 ZITHROMAX Z-MARY 250 MG ORAL TABLET 198089 AZITHROMYCIN Inactive CEFTIN 500 MG ORAL TABLET [...] RELEASE 12 HOUR 1 po bid 05/26 IRVING-D ALLERGY & CONGESTION TABLET EXTENDED RELEASE 12 HOUR FEXOFENADINE-PSEUDOEPHEDRINE [id number]-[id number] Inactive PREDNISONE 20 MG ORAL TABLET 1 tablet twice daily for 2 days, then 1 tablet once daily for 2 days PREDNISONE 20 MG ORAL TABLET 735956 PREDNISONE Inactive GUAIFENESIN ER 600 MG ORAL TABLET EXTENDED RELEASE 12 HOUR 1 twice a day as needed for congestion GUAIFENESIN ER 600 MG ORAL TABLET EXTENDED RELEASE 12 HOUR GUAIFENESIN Inactive FLUTICASONE PROPIONATE 50 MCG/ACT NASAL SUSPENSION 1 to 2 sprays each nostril daily FLUTICASONE PROPIONATE 50 MCG/ACT NASAL SUSPENSION 0446498 FLUTICASONE PROPIONATE Inactive MUCINEX D 60-600 MG ORAL TABLET EXTENDED RELEASE 12 HOUR 1 po BID PRN Congestion MUCINEX D 60-600 MG ORAL TABLET EXTENDED RELEASE 12 HOUR PSEUDOEPHEDRINE-GUAIFENESIN Inactive PREDNISONE 20 MG ORAL TABLET two tabs by mouth today, then one tab by mouth days two and three PREDNISONE 20 MG ORAL TABLET 592493 PREDNISONE Inactive PREDNISONE 10 MG ORAL TABLET 2 TABS BY MOUTH TODAY, THEN 1 TAB BY MOUTH DAYS 2 -5 PREDNISONE 10 MG ORAL TABLET 807142 PREDNISONE Inactive PREDNISONE 20 MG ORAL TABLET 2 tabs by mouth today, then 1 tab tomorrow 08/30 PREDNISONE 20 MG ORAL TABLET 675056 PREDNISONE Inactive AZITHROMYCIN 250 MG ORAL TABLET 2 po qd x 1 day, then 1 po qd x 4 days 11/26 AZITHROMYCIN 250 MG ORAL TABLET 284566 AZITHROMYCIN Inactive AZITHROMYCIN 250 MG ORAL TABLET 2 po qd x 1 day, then 1 po qd x 4 days 08/05 AZITHROMYCIN 250 MG ORAL TABLET 679521 AZITHROMYCIN Inactive MEDROL 4 MG ORAL TABLET THERAPY PACK 6 pills on day 1, 5 pills on day 2, 4 pills on day 3, 4 pills on day 4, 2 pills on day 5, 1 pill on day 6 MEDROL 4 MG ORAL TABLET THERAPY PACK 339044 METHYLPREDNISOLONE Inactive CEPHALEXIN 500 MG ORAL CAPSULE 1 tablet by mouth three times daily for ten days CEPHALEXIN 500 MG ORAL CAPSULE 439131 CEPHALEXIN Inactive PREDNISONE 20 MG ORAL TABLET 2 tabs daily for 3 days, 1 tab daily for 3 days, 1/2 tab daily for 2 days PREDNISONE 20 MG ORAL TABLET 380128 PREDNISONE Inactive CEFDINIR 300 MG ORAL CAPSULE 1 cap by mouth twice a day CEFDINIR 300 MG ORAL CAPSULE 937240 CEFDINIR Inactive PREDNISONE 20 MG ORAL TABLET 2 tabs daily for 3 days, 1 tab daily for 3 days, 1/2 tab daily for 2 days PREDNISONE 20 MG ORAL TABLET 291254 PREDNISONE Inactive PREDNISONE 20 MG ORAL TABLET 2 tabs daily for 3 days, 1 tab daily for 3 days, 1/2 tab daily for 2 days PREDNISONE 20 MG ORAL TABLET 153949 PREDNISONE Inactive CEFDINIR 300 MG ORAL CAPSULE by mouth twice a day CEFDINIR 300 MG ORAL CAPSULE 296509 CEFDINIR Inactive PREDNISONE 20 MG ORAL TABLET 2 tabs daily for 3 days, 1 tab daily for 3 days, 1/2 tab daily for 2 days PREDNISONE 20 MG ORAL TABLET 179015 PREDNISONE Inactive CEFDINIR 300 MG ORAL CAPSULE 1 po BID x 10 days CEFDINIR 300 MG ORAL CAPSULE 243063 CEFDINIR Inactive AZITHROMYCIN 250 MG ORAL TABLET 2 po qd x 1 day, then 1 po qd x 4 days 08/30 AZITHROMYCIN 250 MG ORAL TABLET 747280 AZITHROMYCIN Inactive PREDNISONE 20 MG ORAL TABLET 2 tabs daily for 3 days, 1 tab daily for 3 days, 1/2 tab daily for 2 days start tomorrow 07/31/16 PREDNISONE 20 MG ORAL TABLET 657507 PREDNISONE Inactive AZITHROMYCIN 250 MG ORAL TABLET 2 po qd x 1 day, then 1 po qd x 4 days 07/24 AZITHROMYCIN 250 MG ORAL TABLET 859517 AZITHROMYCIN Inactive Immunizations Vaccine Administration Date Value Standard Description Human Papillomavirus vaccine (Gardasil) #2, (HPV #2) Gardasil [ CVX62] human papilloma virus vaccine, quadrivalent Seasonal influenza vaccine, injectable, containing preservative, for > 3 years old (Afluria, FluLaval, Fluzone, Fluvirin, Fluarix, Agriflu(>=18 yo)) Fluzone (>3 yrs.) [NQL133] Influenza, seasonal, injectable Human Papillomavirus Vaccine (Gardasil) #1 Given (HPV #1) Gardasil [CVX62] human papilloma virus vaccine, quadrivalent hepatitis A immunization #2 Havrix-Pedi hepatitis A vaccine, unspecified formulation Boostrix (Tetanus toxoid, reduced diphtheria toxoid and acellular pertussis vaccine, adsorbed), booster Boostrix [[id number]] tetanus toxoid, reduced diphtheria toxoid, and acellular [...] (measles, mumps, rubella) virus immunization #1 MMR DPT immunization #3 DTaP Hemophilus influenza B immunization #3 ProHIBit Haemophilus influenzae type b vaccine, conjugate unspecified formulation hepatitis B vaccine #3 Historical hepatitis B vaccine, unspecified formulation Hemophilus influenza B immunization #2 Historical Haemophilus influenzae type b vaccine, conjugate unspecified formulation oral polio vaccine (OPV) #2 IPV poliovirus vaccine, unspecified formulation DPT immunization #2 DTaP Hemophilus influenza B immunization #1 Historical Haemophilus influenzae type b vaccine, conjugate unspecified formulation oral polio vaccine (OPV) #1 IPV poliovirus vaccine, unspecified formulation DPT immunization #1 DTaP hepatitis B vaccine #2 given Historical hepatitis B vaccine, unspecified formulation hepatitis B vaccine #1 [...] Negative Encounters Code Encounter Date Provider Facility CPT-50953 Level 3 Est. Patient 16:00:45 CDT Daniele Mcfadden DO [facility] CPT-61269 Level 3 Est. Patient 15:57:40 CDT Daniele [facility] CPT-95533 Level 3 Est. Patient 09:35:49 IRONING MACHINE OPERATOR Daniele Mcfadden [facility] CPT-45585 Level 3 Est. Patient 09:35:25 IRONING MACHINE OPERATOR Daniele Mcfadden [facility] CPT-71204 Level 3 Est. Patient 16:03:55 IRONING MACHINE OPERATOR Whitley Quiroz [facility] CPT-10205 Level 3 Est. Patient 17:42:49 IRONING MACHINE OPERATOR Whitley Quiroz [facility] CPT-99951 Level 3 Est. Patient 10:49:47 IRONING MACHINE OPERATOR Griselda Horvath [facility] CPT-62689 Level 3 Est. Patient 08:43:59 IRONING MACHINE OPERATOR Jessika Nunes [facility] CPT-38876 Level 3 Est. Patient 09:05:19 IRONING MACHINE OPERATOR Griselda Horvath [facility] CPT-00306 Level 3 Est. Patient 15:45:46 CDT Griselda Horvath [facility] CPT-90180 Level 3 Est. Patient 14:15:52 CDT Daniele Mcfadden [facility] CPT-06242 Level 3 Est. Patient 13:57:19 IRONING MACHINE OPERATOR Margarito Kelley MD [facility] CPT-10051 Level 3 Est. Patient 09:16:05 IRONING MACHINE OPERATOR Margarito Kelley MD [facility] CPT-83959 Level 3 Est. Patient 15:37:06 IRONING MACHINE OPERATOR Daniele Mcfadden [facility] CPT-04618 Level 3 Est. Patient 11:56:34 IRONING MACHINE OPERATOR Renée Adames [facility] CPT-24384 Level 3 Est. Patient 12:19:42 CDT Daniele Mcfadden [facility] CPT-23249 Level 3 Est. Patient 11:08:45 CDT Annita Mejia MD, PhD [facility] CPT-49263 Level 3 Est. Patient 12:00:17 CDT Kendell Coronado MD [facility] CPT-93453 Level 3 Est. Patient 12:27:25 CDT Daniele Gaetano Bogdan [facility] CPT-30718 Level 3 Est. Patient 18:45:11 IRONING MACHINE OPERATOR Daniele Mcfadden [facility] CPT-70173 Level 3 Est. Patient 10:12:24 IRONING MACHINE OPERATOR Daniele Mcfadden [facility] CPT-71084 Level 3 Est. Patient 14:35:11 IRONING MACHINE OPERATOR Daniele Mcfadden [facility] CPT-74226 Level 3 Est. Patient 14:11:04 CDT Daniele Gaetano Bogdan [facility] CPT-26172 Level 3 Est. Patient 10:52:13 CDT Alexander LOPEZ [facility] CPT-75391 Level 3 Est. Patient 11:01:08 IRONING MACHINE OPERATOR Daniele Mcfadden [facility] CPT-62241 Level 3 Est. Patient 10:55:35 CDT Daniele Salter [facility] CPT-78808 Level 3 Est. Patient 14:03:08 CDT Daniele Gaetano Mcfadden [facility] CPT-87453 Level 3 Est. Patient 11:26:19 CDT Margarito Kelley MD [facility] CPT-71901 Level 2 Est. Patient 15:32:04 IRONING MACHINE OPERATOR Daniele Mcfadden [facility] CPT-35560 Level 3 Est. Patient 16:01:26 IRONING MACHINE OPERATOR Daniele Mcfadden [facility] CPT-18995 Level 3 Est. Patient 06:37:10 IRONING MACHINE OPERATOR Daniele Mcfadden [facility] Procedures Code Procedure Name Date Entry Date Standard Description CPT-70299 Addl Vx - Ix admin via ID IM or jet injects without counseling by physician 14:37:19 CDT CPT-66377 Meningococcal B, recombinant vaccine 14:37:19 CDT 03/05 CPT-32115 First Vx - Ix admin via ID IM or jet injects without counseling by physician 14:37:19 CDT CPT-12172 Menveo Intramuscular Solution Reconstituted 14:37:19 CDT CPT-43937 Meningococcal Conjugate Vacine (Menactra) 11:20:04 CDT CPT-48708 Throat Culture - LAB USE ONLY 12:15:45 IRONING MACHINE OPERATOR CPT-09208 Misa Flu A/B - LAB USE ONLY 12:15:45 IRONING MACHINE OPERATOR CPT-25205 Rapid Strep (Reflex throat) - LAB USE ONLY 12:15:45 IRONING MACHINE OPERATOR CPT-41980 Rapid Strep (Grp A) - LAB USE ONLY 13:06:06 CDT CPT-42497 Abd compl w upright 12:34:39 CDT CPT-03108 Immunization Single Admin 11:38:41 CDT CPT-55322 Fluzone Quadrivalent Intramuscular Suspension 0.5 ML 11: 38:41 CDT CPT-OV Office Visit 14:45:12 IRONING MACHINE OPERATOR CPT-91991 [employer] all organs plus proximal aorta and distal IVC 2012 12:13:02 IRONING MACHINE OPERATOR CPT-35062 Abd compl w upright 15:12:58 IRONING MACHINE OPERATOR CPT-43281 Venipuncture Draw Fee 14:38:32 IRONING MACHINE OPERATOR CPT-93608 Administration single or combination vaccine inc oral 17 :10:04 CDT CPT-93793 Gardasil 17:10:04 CDT CPT-53515 Venipuncture Draw Fee 16:07:54 IRONING MACHINE OPERATOR CPT-19502 Administration 2+ single or combination vaccines inc oral 17:22:02 CDT CPT-83910 Administration single or combination vaccine inc oral 17 :22:02 CDT CPT-37650 Influenza split virus > age 3 17:22:02 CDT CPT-05150 Gardasil 17:22:02 CDT CPT-26114 Administration 2+ single or combination vaccines inc oral 14:38:31 CDT CPT-76560 Administration single or combination vaccine inc oral 14 :38:31 CDT CPT-11988 Meningococcal Conjugate Vacine (Menactra) 14:38:31 CDT CPT-23346 Gardasil 14:38:31 CDT
--- OUTSIDE RECORDS SUMMARY | 2018-02-15 06:26 | XMS REPORT | Clinical Summary ---
Author Author Admin, Ludmila Organization [facility] Address Unknown Phone Unavailable Allergies, Adverse Reactions, [...] Fever, unspecified Immunization due V15.83 Resolved Whitley Richie Hernandez Personal history of underimmunization status U R I 465.9 Active Whitley Richie Hernandez Acute upper respiratory infections of unspecified site ALLERGIC RHINITIS ICD-477.9 Inactive Errol Pack MD [...] MD Biliary dyskinesia ICD-575.8 Inactive Katie Gipson LPN U R I ICD-465.9 Inactive Daniele Mcfadden DO Abdominal pain ICD-789.00 Inactive Kendell Coronado MD Ankle sprain ICD-845.00 Inactive Kendell Coronado MD Pharyngitis ICD-462 Inactive Annita Mejia MD PhD Fatigue ICD-780.79 Inactive Margarito Kelley MD 2014 Vaccination against influenza ICD-V04.81 Inactive Margarito Kelley MD Flank pain, right ICD-789.09 Inactive Margarito Kelley MD Pharyngitis, acute ICD-462 Inactive Margarito Kelley MD Knee pain, left ICD-719.46 Inactive Margarito Kelley MD Upper respiratory infection, viral ICD-465.9 Inactive Katie Gipson [employer] Sinusitis ICD-473.9 Inactive Katie Gipson [employer] 2017 Eustachian tube dysfunction, right ICD-381.81 Inactive Katie Gipson [employer] Pharyngitis-Acute ICD-462 Inactive Katie Gipson [employer] URI ICD-465.9 Inactive Katie Gipson [employer] Allergic rhinitis ICD-477.9 Inactive Katie Gipson [employer] Acute rhinosinusitis ICD-461.9 Inactive Katie Gipson [employer] Fever ICD-780.60 Inactive Katie Gipson [employer] Immunization due ICD-V15.83 Inactive Katie Gipson [employer] Sinusitis, acute ICD-461.9 Inactive Margarito Kelley MD Medication List Medication Instructions Start Date Stop Date Generic Name NDC Status Provider Patient Instruction PREDNISONE 10 MG ORAL TABLET 2 TABS BY MOUTH TODAY, THEN 1 TAB BY MOUTH DAYS 2 -5 PREDNISONE 70946749213 Active Daniele Mcfadden DO Active PREDNISONE 20 MG ORAL TABLET two tabs by mouth today, then one tab by mouth days two and three PREDNISONE 36635452817 No Longer Active Whitley Hernandez Active AZITHROMYCIN 250 MG ORAL TABLET 2 po qd x 1 day, then 1 po qd x 4 days 07/24 AZITHROMYCIN 95910669879 No Longer Active Daniele Mcfadden DO Active IRVING-D ALLERGY & CONGESTION 60-120 MG ORAL TABLET EXTENDED RELEASE 12 HOUR 1 tablet twice daily as needed for congestion/allergies FEXOFENADINE-PSEUDOEPHEDRINE 73309299766 Active Holly Sharma Active PREDNISONE 20 MG ORAL TABLET 2 tabs daily for 3 days, 1 tab daily for 3 days, 1/2 tab daily for 2 days start tomorrow 07/31/16 PREDNISONE 51600800060 No Longer Active Jillina Alexandru JOHNSON Active AZITHROMYCIN 250 MG ORAL TABLET 2 po qd x 1 day, then 1 po qd x 4 days 08/30 AZITHROMYCIN 67345401819 No Longer Active Jillina Alexandru JOHNSON Active MUCINEX D 60-600 MG ORAL TABLET EXTENDED RELEASE 12 HOUR 1 po BID PRN Congestion PSEUDOEPHEDRINE-GUAIFENESIN 18425766555 No Longer Active Jessika Nunes APRN Active CEFDINIR 300 MG ORAL CAPSULE 1 po BID x 10 days CEFDINIR 03707933336 No Longer Active Jillina Alexandru JOHNSON Active PREDNISONE 20 MG ORAL TABLET 2 tabs daily for 3 days, 1 tab daily for 3 days, 1/2 tab daily for 2 days PREDNISONE 50789539824 No Longer Active Jillina Frazell [employer] Active FLUTICASONE PROPIONATE 50 MCG/ACT NASAL SUSPENSION 1 to 2 sprays each nostril daily FLUTICASONE PROPIONATE 12996128792 No Longer Active Jillina Frazell [employer] Active GUAIFENESIN ER 600 MG ORAL TABLET EXTENDED RELEASE 12 HOUR 1 twice a day as needed for congestion GUAIFENESIN 29628598769 No Longer Active Ezekielllina Jiml [employer] BR[employer]ER Active CEFDINIR 300 MG ORAL CAPSULE by mouth twice a day CEFDINIR 00763451746 No Longer Active Jillina Frazell [employer]ER Active PREDNISONE 20 MG ORAL TABLET 1 tablet twice daily for 2 days, then 1 tablet once daily for 2 days PREDNISONE 48924928641 No Longer Active Jillina Framarkl WOOL BROKER Active PREDNISONE 20 MG ORAL TABLET 2 tabs daily for 3 days, 1 tab daily for 3 days, 1/2 tab daily for 2 days PREDNISONE 78364786747 No Longer Active Margarito Kelley MD Active IRVING-D ALLERGY & CONGESTION TABLET EXTENDED RELEASE 12 HOUR 1 po bid 05/26 FEXOFENADINE-PSEUDOEPHEDRINE [id number] 30656569791 No Longer Active Margarito Kelley MD Active PREDNISONE 20 MG ORAL TABLET 2 tabs daily for 3 days, 1 tab daily for 3 days, 1/2 tab daily for 2 days PREDNISONE 67849860806 No Longer Active Ezekielllina Alexandru JOHNSON Active CEFDINIR 300 MG ORAL CAPSULE 1 cap by mouth twice a day CEFDINIR 83896541783 No Longer Active Jillina Jiml WOOL BR[employer]ER Active E-Z SPACER DEVICE use with proair inhalier every 4 times as need. SPACER/AERO-HOLDING CHAMBERS 50676037817 No Longer Active Jillina Jiml WOOL BR[employer]ER Active PROAIR HFA 108 (90 Base) MCG/ACT INHALATION AEROSOL SOLUTION 2 puffs every 4 hours as needed ALBUTEROL SULFATE 59523898573 No Longer Active Ezekielllina Alexandru ONTIVEROSN Active CEFTIN 500 MG ORAL TABLET 1 tablet by mouth twice daily for ten days. CEFUROXIME AXETIL 54484397995 No Longer Active Ezekielllsd Horvath APRN Active PREDNISONE 20 MG ORAL TABLET 2 tabs daily for 3 days, 1 tab daily for 3 days, 1/2 tab daily for 2 days PREDNISONE 59785885966 No Longer Active Margarito Kelley MD Active CEPHALEXIN 500 MG ORAL CAPSULE 1 tablet by mouth three times daily for ten days CEPHALEXIN 77162460562 No Longer Active Renée Adames ALEX Active MEDROL 4 MG ORAL TABLET THERAPY PACK 6 pills on day 1, 5 pills on day 2, 4 pills on day 3, 4 pills on day 4, 2 pills on day 5, 1 pill on day 6 METHYLPREDNISOLONE 34167106744 No Longer Active Annita Mejia MD PhD Active ZITHROMAX Z-MARY 250 MG ORAL TABLET 2 today and then 1 daily for 4 days 03/11 AZITHROMYCIN 41390574640 No Longer Active Annita Mejia MD PhD Active GUAIFENESIN-CODEINE 100-10 MG/5ML ORAL SYRUP 5ml every 4 to 6 hours as needed for cough GUAIFENESIN-CODEINE 97280004190 No Longer Active Annita Mejia MD PhD Active FLONASE 50 MCG/ACT NASAL SUSPENSION 1 spray each nostril am and hs FLUTICASONE PROPIONATE 11016475918 No Longer Active Kendell Coronado MD Active MELOXICAM 15 MG ORAL TABLET 1 po q day for pain with food MELOXICAM 63948275037 No Longer Active Kendell Coronado MD Active HYDROCODONE-ACETAMINOPHEN 5-325 MG ORAL TABLET 1-2 q 4-6 hrs prn pain 20 tabs HYDROCODONE-ACETAMINOPHEN 69418831792 No Longer Active Daniele Mcfadden DO Active PREDNISONE 20 MG ORAL TABLET 1 tablet twice daily for 2 days, then 1 tablet once daily for 2 days PREDNISONE 96046491233 No Longer Active Daniele Mcfadden DO Active PREDNISONE 20 MG ORAL TABLET 1 po bid 2 days, then daily for 2 days PREDNISONE 79788827879 No Longer Active Alexander LOPEZ Active AZITHROMYCIN 250 MG ORAL TABLET 2 po qd x 1 day, then 1 po qd x 4 days 08/05 AZITHROMYCIN 44671640823 No Longer Active Daniele Mcfadden DO Active MUCINEX MAXIMUM STRENGTH TABLET EXTENDED RELEASE 12 HOUR 1 po qd GUAIFENESIN [id number] 76464078642 No Longer Active Daniele Mcfadden DO Active AZITHROMYCIN 250 MG ORAL TABLET 2 po qd x 1 day, then 1 po qd x 4 days 11/26 AZITHROMYCIN 57131258631 No Longer Active Margarito Kelley MD Active MUCINEX MAXIMUM STRENGTH TABLET EXTENDED RELEASE 12 HOUR 1 po qd MUCINEX MAXIMUM STRENGTH TABLET EXTENDED RELEASE 12 HOUR GUAIFENESIN [id number] Inactive PREDNISONE 20 MG ORAL TABLET 1 po bid 2 days, then daily for 2 days PREDNISONE 20 MG ORAL TABLET 395266 PREDNISONE Inactive PREDNISONE 20 MG ORAL TABLET 1 tablet twice daily for 2 days, then 1 tablet once daily for 2 days PREDNISONE 20 MG ORAL TABLET 593212 PREDNISONE Inactive HYDROCODONE-ACETAMINOPHEN 5-325 MG ORAL TABLET 1-2 q 4-6 hrs prn pain 20 tabs HYDROCODONE-ACETAMINOPHEN 5-325 MG ORAL TABLET 800468 HYDROCODONE-ACETAMINOPHEN Inactive MELOXICAM 15 MG ORAL TABLET 1 po q day for pain with food MELOXICAM 15 MG ORAL TABLET 905206 MELOXICAM Inactive FLONASE 50 MCG/ACT NASAL SUSPENSION 1 spray each nostril am and hs FLONASE 50 MCG/ACT NASAL SUSPENSION 6324538 FLUTICASONE PROPIONATE Inactive GUAIFENESIN-CODEINE 100-10 MG/5ML ORAL SYRUP 5ml every 4 to 6 hours as needed for cough GUAIFENESIN-CODEINE 100-10 MG/5ML ORAL SYRUP 419878 GUAIFENESIN-CODEINE Inactive ZITHROMAX Z-MARY 250 MG ORAL TABLET 2 today and then 1 daily for 4 days 03/11 ZITHROMAX Z-MARY 250 MG ORAL TABLET 259852 AZITHROMYCIN Inactive CEFTIN 500 MG ORAL TABLET 1 tablet by mouth twice daily for ten days. CEFTIN 500 MG ORAL TABLET 511581 CEFUROXIME AXETIL Inactive PROAIR HFA 108 (90 [...] CONGESTION TABLET EXTENDED RELEASE 12 HOUR FEXOFENADINE-PSEUDOEPHEDRINE [id number] Inactive PREDNISONE 20 MG ORAL TABLET 1 tablet twice daily for 2 days, then 1 tablet once daily for 2 days PREDNISONE 20 MG ORAL TABLET 010646 PREDNISONE Inactive GUAIFENESIN ER 600 MG ORAL TABLET EXTENDED RELEASE 12 HOUR 1 twice a day as needed for congestion GUAIFENESIN ER 600 MG ORAL TABLET EXTENDED RELEASE 12 HOUR GUAIFENESIN Inactive FLUTICASONE PROPIONATE 50 MCG/ACT NASAL SUSPENSION 1 to 2 sprays each nostril daily FLUTICASONE PROPIONATE 50 MCG/ACT NASAL SUSPENSION 2463626 FLUTICASONE PROPIONATE Inactive MUCINEX D 60-600 MG ORAL TABLET EXTENDED RELEASE 12 HOUR 1 po BID PRN Congestion MUCINEX D 60-600 MG ORAL TABLET EXTENDED RELEASE 12 HOUR PSEUDOEPHEDRINE-GUAIFENESIN Inactive PREDNISONE 20 MG ORAL TABLET two tabs by mouth today, then one tab by mouth days two and three PREDNISONE 20 MG ORAL TABLET 317133 PREDNISONE Inactive AZITHROMYCIN 250 MG ORAL TABLET 2 po qd x 1 day, then 1 po qd x 4 days 11/26 AZITHROMYCIN 250 MG ORAL TABLET 948842 AZITHROMYCIN Inactive AZITHROMYCIN 250 MG ORAL TABLET 2 po qd x 1 day, then 1 po qd x 4 days 08/05 AZITHROMYCIN 250 MG ORAL TABLET 325830 AZITHROMYCIN Inactive MEDROL 4 MG ORAL TABLET THERAPY PACK 6 pills on day 1, 5 pills on day 2, 4 pills on day 3, 4 pills on day 4, 2 pills on day 5, 1 pill on day 6 MEDROL 4 MG ORAL TABLET THERAPY PACK 537364 METHYLPREDNISOLONE Inactive CEPHALEXIN 500 MG ORAL CAPSULE 1 tablet by mouth three times daily for ten days CEPHALEXIN 500 MG ORAL CAPSULE 372269 CEPHALEXIN Inactive PREDNISONE 20 MG ORAL TABLET 2 tabs daily for 3 days, 1 tab daily for 3 days, 1/2 tab daily for 2 days PREDNISONE 20 MG ORAL TABLET 787555 PREDNISONE Inactive CEFDINIR 300 MG ORAL CAPSULE 1 cap by mouth twice a day CEFDINIR 300 MG ORAL CAPSULE 572023 CEFDINIR Inactive PREDNISONE 20 MG ORAL TABLET 2 tabs daily for 3 days, 1 tab daily for 3 days, 1/2 tab daily for 2 days PREDNISONE 20 MG ORAL TABLET 935272 PREDNISONE Inactive PREDNISONE 20 MG ORAL TABLET 2 tabs daily for 3 days, 1 tab daily for 3 days, 1/2 tab daily for 2 days PREDNISONE 20 MG ORAL TABLET 254841 PREDNISONE Inactive CEFDINIR 300 MG ORAL CAPSULE by mouth twice a day CEFDINIR 300 MG ORAL CAPSULE 591169 CEFDINIR Inactive PREDNISONE 20 MG ORAL TABLET 2 tabs daily for 3 days, 1 tab daily for 3 days, 1/2 tab daily for 2 days PREDNISONE 20 MG ORAL TABLET 232535 PREDNISONE Inactive CEFDINIR 300 MG ORAL CAPSULE 1 po BID x 10 days CEFDINIR 300 MG ORAL CAPSULE 163863 CEFDINIR Inactive AZITHROMYCIN 250 MG ORAL TABLET 2 po qd x 1 day, then 1 po qd x 4 days 08/30 AZITHROMYCIN 250 MG ORAL TABLET 207003 AZITHROMYCIN Inactive PREDNISONE 20 MG ORAL TABLET 2 tabs daily for 3 days, 1 tab daily for 3 days, 1/2 tab daily for 2 days start tomorrow 07/31/16 PREDNISONE 20 MG ORAL TABLET 730568 PREDNISONE Inactive AZITHROMYCIN 250 MG ORAL TABLET 2 po qd x 1 day, then 1 po qd x 4 days 07/24 AZITHROMYCIN 250 MG ORAL TABLET 626502 AZITHROMYCIN Inactive Immunizations Vaccine Administration Date Value Standard Description Human Papillomavirus vaccine (Gardasil) #2, (HPV #2) Gardasil [ [id number]] human papilloma virus vaccine, quadrivalent Seasonal influenza vaccine, injectable, containing preservative, for > 3 years old (Afluria, FluLaval, Fluzone, Fluvirin, Fluarix, Agriflu(>=18 yo)) Fluzone (>3 yrs.) [[id number]] Influenza, seasonal, injectable Human Papillomavirus Vaccine (Gardasil) #1 Given (HPV #1) Gardasil [CVX62] human papilloma virus vaccine, quadrivalent hepatitis A immunization #2 Havrix-Pedi hepatitis A vaccine, unspecified formulation Boostrix (Tetanus toxoid, reduced diphtheria toxoid and acellular pertussis vaccine, adsorbed), booster Boostrix [[id number]] tetanus toxoid, reduced diphtheria toxoid, and acellular [...] Name Value Unit Range Description blood pressure, diastolic 79 mm[Hg] BP herndon [...] temperature weight E&M 206.31 [lb_av] Weight Measured blood pressure, diastolic 70 mm[Hg] BP herndon blood pressure, systolic 105 mm[Hg] BP sys pulse rate E&M 95 /min Heart rate temperature E&M 98.7 [degF] Body temperature weight E&M 212 [lb_av] Weight Measured blood pressure, diastolic 66 mm[Hg] BP herndon blood pressure, systolic 112 mm[Hg] BP sys pulse rate E&M 98 /min Heart rate temperature E&M 97.7 [degF] Body temperature weight E&M 210.5 [lb_av] Weight Measured Diagnostic Results Date Name Value Unit Range Description Lab Report: SHANI INFLUENZA A/B, RapidStrep Rflx/Cx - Lab Microbial identification kit, rapid strep method Negative-Throat Culture to Follow Negative Lab Report: SHANI INFLUENZA A/B, RapidStrep Rflx/Cx - Toxicology rapid flu test Negative Negative;Positive Encounters Code Encounter Date Provider Facility CPT-26817 Level 3 Est. Patient 16:03:55 [employer] Whitley Quiroz [facility]-77448 Level 3 Est. Patient 17:42:49 [employer]IOR [employer] Whitley Quiroz [facility]-78525 Level 3 Est. Patient 10:49:47 [employer] Griselda Horvath [facility] [place]-[address]110 Level 3 Est. Patient 08:43:59 SENIOR [employer]NA[employer] Jessika Nunes [facility] [place] CPT-84546 Level 3 Est. Patient 09:05:19 SENIOR [employer]NA[employer] Griselda Horvath [facility] [place] CPT-32044 Level 3 Est. Patient 15:45:46 CDT Griselda Horvath [facility] [place]-96417 Level 3 Est. Patient 14:15:52 [address] [facility]-35720 Level 3 Est. Patient 13:57:19 S[employer]IOR [employer] Margarito Kelley MD [facility]-17425 Level 3 Est. Patient 09:16:05 S[employer]IOR [employer] Margarito Kelley MD [facility]-72016 Level 3 Est. Patient 15:37:06 S[employer]IOR [employer] Daniele Mcfadden [facility] CPT-31997 Level 3 Est. Patient 11:56:34 S[employer]IOR [employer] Renée Adames [facility] CPT-65760 Level 3 Est. Patient 12:19:42 CDT Daniele Mcfadden [facility] CPT-89102 Level 3 Est. Patient 11:08:45 CDT Annita Mejia MD PhD [facility] CPT-77811 Level 3 Est. Patient 12:00:17 CDT Kendell Coronado MD [facility]-11147 Level 3 Est. Patient 12:27:25 CDT Daniele Mcfadden [facility] CPT-69340 Level 3 Est. Patient 18:45:11 S[employer]IOR [employer] Daniele Mcfadden [facility] CPT-66558 Level 3 Est. Patient 10:12:24 S[employer]IOR [employer] Daniele Mcfadden [facility] CPT-39253 Level 3 Est. Patient 14:35:11 S[employer] Daniele Mcfadden [facility] CPT-03974 Level 3 Est. Patient 14:11:04 CDT Daniele Mcfadden [facility] CPT-64621 Level 3 Est. Patient 10:52:13 CDT Alexander Estrada [facility] CPT-77710 Level 3 Est. Patient 11:01:08 S[employer]IOR [employer]NAGER [employer] Daniele Mcfadden [facility] CPT-20427 Level 3 Est. Patient 10:55:35 CDT Daniele Mcfadden [facility] CPT-51161 Level 3 Est. Patient 14:03:08 CDT Daniele Mcfadden [facility] CPT-44464 Level 3 Est. Patient 11:26:19 CDT Margarito Kelley MD [facility] CPT-26228 Level 2 Est. Patient 15:32:04 S[employer] Daniele Mcfadden [facility] CPT-76327 Level 3 Est. Patient 16:01:26 S[employer]IOR [employer] Daniele Gaetano Bogdan [facility] CPT-00508 Level 3 Est. Patient 06:37:10 S[employer]IOR [employer] Daniele Gaetano Bogdan [facility] Procedures Code Procedure Name Date Entry Date Standard Description CPT-02894 Addl Vx - Ix admin via ID IM or jet injects without counseling by physician 14:37:19 CDT CPT-63983 Meningococcal B, recombinant vaccine 14:37:19 CDT 03/05 CPT-80897 First Vx - Ix admin via ID IM or jet injects without counseling by physician 14:37:19 CDT CPT-82782 Menveo Intramuscular Solution Reconstituted 14:37:19 CDT CPT-92827 Meningococcal Conjugate Vacine (Menactra) 11:20:04 CDT CPT-89747 Throat Culture - LAB USE ONLY 12:15:45 [employer] CPT-26157 Shani Flu A/B - LAB USE ONLY 12:15:45 [employer] CPT-24766 Rapid Strep (Reflex throat) - LAB USE ONLY 12:15:45 [employer] CPT-67462 Rapid Strep (Grp A) - LAB USE ONLY 13:06:06 CDT CPT-64345 Abd compl w upright 12:34:39 CDT CPT-20498 Immunization Single Admin 11:38:41 CDT CPT-17910 Fluzone Quadrivalent Intramuscular Suspension 0.5 ML 11: 38:41 CDT CPT-OV Office Visit 14:45:12 [employer] CPT-67473 Sono abd com inc all organs plus proximal aorta and distal IVC 2012 12:13:02 [employer] CPT-47647 Abd compl w upright 15:12:58 [employer] CPT-63608 Venipuncture Draw Fee 14:38:32 [employer] CPT-50358 Administration single or combination vaccine inc oral 17 :10:04 CDT CPT-48346 Gardasil 17:10:04 CDT CPT-85901 Venipuncture Draw Fee 16:07:54 [employer] CPT-39878 Administration 2+ single or combination vaccines inc oral 17:22:02 CDT CPT-17399 Administration single or combination vaccine inc oral 17 :22:02 CDT CPT-53422 Influenza split virus > age 3 17:22:02 CDT CPT-18337 Gardasil 17:22:02 CDT CPT-73486 Administration 2+ single or combination vaccines inc oral 14:38:31 CDT CPT-95301 Administration single or combination vaccine inc oral 14 :38:31 CDT CPT-54550 Meningococcal Conjugate Vacine (Menactra) 14:38:31 CDT CPT-65649 Gardasil 14:38:31 CDT
--- OUTSIDE RECORDS SUMMARY | 2018-02-15 06:26 | XMS REPORT | Clinical Summary ---
Author Author Admin, Ludmila Organization [employer] [facility] [employer] Address Unknown Phone Unavailable Allergies, Adverse Reactions, [...] Pack MD Tietze's disease PLANTAR WART 078.12 Active Daniele Mcfadden DO Plantar wart KNEE PAIN, RIGHT 719.46 Resolved Errol Pack MD Pain in joint involving lower leg ATHLETIC PHYSICAL, NORMAL V70.3 Resolved Errol Pack MD Other general medical examination for administrative purposes MUSCLE RUPTURE, NONTRAUMATIC 728.83 Resolved Errol Pack MD Rupture of muscle, nontraumatic Abdominal pain 789.00 Correction Errol Pack MD Abdominal pain, unspecified site Biliary dyskinesia 575.8 Active Errol Pack MD Other specified disorders of gallbladder U R [...] lower leg Upper respiratory infection, viral 465.9 Active Margarito Kelley MD Acute upper respiratory infections of unspecified site Sinusitis 473.9 Active Griselda Horvath [employer]INS[employer]ING [employer] INSPECTOR Unspecified sinusitis (chronic) Eustachian tube dysfunction, right 381.81 Active Margarito Kelley MD Dysfunction of Eustachian tube Pharyngitis-Acute 462 Active Daniele Mcfadden DO Acute pharyngitis URI 465.9 Active Griselda Horvath [employer] INSPECTOR Acute upper respiratory infections of unspecified site Allergic rhinitis 477.9 Active Jessika Nunes [employer]INS[employer]ING STRIP INSPECTOR Allergic rhinitis, cause unspecified Acute rhinosinusitis 461.9 Active Jessika Nunes [employer]INS[employer]ING [employer]IP INSPECTOR Acute sinusitis, unspecified Fever 780.60 Active Griselda Horvath [employer] INSPECTOR Fever, unspecified ALLERGIC RHINITIS ICD-477.9 Inactive Errol Pack MD BRONCHITIS, ACUTE ICD-466.0 Inactive Errol Pack MD COSTOCHONDRITIS, ACUTE ICD-733.6 Inactive Errol Pack MD KNEE PAIN, RIGHT ICD-719.46 Inactive Errol Pack MD ATHLETIC PHYSICAL, NORMAL ICD-V70.3 Inactive Errol Pack MD MUSCLE RUPTURE, NONTRAUMATIC ICD-728.83 Inactive Errol Pack MD Abdominal pain ICD-789.00 Inactive Errol Pack MD U R I ICD-465.9 Inactive Daniele Mcfadden DO Abdominal pain ICD-789.00 Inactive Kendell Coronado MD Ankle sprain ICD-845.00 Inactive Kendell Coronado MD CONCUSSION WITH LOC OF 30 MINUTES OR LESS ICD-850.11 Inactive Margarito Kelley MD Fatigue ICD-780.79 Inactive Margarito Kelley MD 2014 Vaccination against influenza ICD-V04.81 Inactive Margarito Kelley MD Flank pain, right ICD-789.09 Inactive Margarito Kelley MD Pharyngitis, acute ICD-462 Inactive Margarito Kelley MD Knee pain, left ICD-719.46 Inactive Margarito Kelley MD Pharyngitis ICD-462 Inactive Annita Mejia MD PhD Sinusitis, acute ICD-461.9 Inactive Margarito Kelley MD Medication List Medication Instructions Start Date Stop Date Generic Name NDC Status Provider Patient Instruction PREDNISONE 20 MG TAB 2 tabs daily for 3 days, 1 tab daily for 3 days, 1/2 tab daily for 2 days start tomorrow 07/31/16 PREDNISONE [id number] No Longer Active Jillina Frazell [employer]IP INSPECTOR Active AZITHROMYCIN 250 MG TABS 2 po qd x 1 day, then 1 po qd x 4 days AZITHROMYCIN 80232990192 No Longer Active Jillina Frazell [employer]INS[employer]ING [employer]IP INSPECTOR Active MUCINEX D 60-600 MG [id number] 1 po BID PRN Congestion PSEUDOEPHEDRINE-GUAIFENESIN 47575972635 No Longer Active Jessika Nunes MAINS[employer]ING STRIP INSPECTOR Active CEFDINIR 300 MG CAPS 1 po BID x 10 days CEFDINIR 78960987428 No Longer Active Jillina Frazell MAINSPRING STRIP INSPECTOR Active PREDNISONE 20 MG TAB 2 tabs daily for 3 days, 1 tab daily for 3 days, 1/2 tab daily for 2 days PREDNISONE 95900073500 No Longer Active Jillina Frazell [employer]INS[employer]ING STRIP INSPECTOR Active FLUTICASONE PROPIONATE 50 MCG/ACT SUSP 1 to 2 sprays each nostril daily 03/20 FLUTICASONE PROPIONATE 06876338147 No Longer Active Jillina Frazell MAINS[employer]ING STRIP INSPECTOR Active GUAIFENESIN 600 MG [id number] 1 twice a day as needed for congestion GUAIFENESIN 27256988422 No Longer Active Jillina Frazell MAINSPRING STRIP INSPECTOR Active CEFDINIR 300 MG CAPS by mouth twice a day CEFDINIR 73869440267 No Longer Active Jillina Frazell MAINSPRING STRIP INSPECTOR Active PREDNISONE 20 MG TAB 1 tablet twice daily for 2 days, then 1 tablet once daily for 2 days PREDNISONE 87710027480 No Longer Active Jillina Frazell MAINSPRING STRIP INSPECTOR Active PREDNISONE 20 MG TAB 2 tabs daily for 3 days, 1 tab daily for 3 days, 1/2 tab daily for 2 days PREDNISONE 64573000080 No Longer Active Margarito Kelley MD Active IRVING-D ALLERGY & CONGESTION [id number] 1 po bid FEXOFENADINE-PSEUDOEPHEDRINE [id number] 60091197361 No Longer Active Margarito Kelley MD Active PREDNISONE 20 MG TAB 2 tabs daily for 3 days, 1 tab daily for 3 days, 1/2 tab daily for 2 days PREDNISONE 66843392632 No Longer Active Jillina Frazell MAINSPRING STRIP INSPECTOR Active CEFDINIR 300 MG CAPS 1 cap by mouth twice a day CEFDINIR 50710881847 No Longer Active Jillina Frazell MAINSPRING STRIP INSPECTOR Active E-Z SPACER ERIBERTO use with proair inhalier every 4 times as need. SPACER/AERO-HOLDING CHAMBERS 51430545756 No Longer Active Jillina Frazell MAINSPRING STRIP INSPECTOR Active PROAIR HFA 108 (90 BASE) MCG/ACT AERS 2 puffs every 4 hours as needed 2014 ALBUTEROL SULFATE 77797259394 No Longer Active Jillina Frazell MAINSPRING STRIP INSPECTOR Active CEFTIN 500 MG TAB 1 tablet by mouth twice daily for ten days. CEFUROXIME AXETIL 49256888839 No Longer Active Jillina Frazell [employer]INS[employer]ING STRIP INSPECTOR Active PREDNISONE 20 MG TAB 2 tabs daily for 3 days, 1 tab daily for 3 days, 1/2 tab daily for 2 days PREDNISONE 59377245065 No Longer Active Margarito Kelley MD Active CEPHALEXIN 500 MG CAPS 1 tablet by mouth three times daily for ten days 06/25 CEPHALEXIN 65518809612 No Longer Active Renée Adames APRN Active MEDROL (MARY) 4 MG TABS 6 pills on day 1, 5 pills on day 2, 4 pills on day 3, 4 pills on day 4, 2 pills on day 5, 1 pill on day 6 METHYLPREDNISOLONE 87188930044 No Longer Active Annita Mejia MD PhD Active ZITHROMAX Z-MARY 250 MG TABS 2 today and then 1 daily for 4 days AZITHROMYCIN 41966829996 No Longer Active Annita Mejia MD PhD Active GUAIFENESIN-CODEINE 100-10 MG/5ML SYRP 5ml every 4 to 6 hours as needed for cough GUAIFENESIN-CODEINE 79742717879 No Longer Active Annita Mejia MD PhD Active FLONASE 50 MCG/ACT SUSP 1 spray each nostril am and hs FLUTICASONE PROPIONATE 64982026606 No Longer Active Kendell Coronado MD Active MELOXICAM 15 MG TABS 1 po q day for pain with food MELOXICAM 74287655411 No Longer Active Kendell Coronado MD Active HYDROCODONE-ACETAMINOPHEN 5-325 MG TABS 1-2 q 4-6 hrs prn pain 20 tabs 07/04 HYDROCODONE-ACETAMINOPHEN 87423615534 No Longer Active Daniele Mcfadden DO Active PREDNISONE 20 MG TAB 1 tablet twice daily for 2 days, then 1 tablet once daily for 2 days PREDNISONE 77191031141 No Longer Active Daniele Mcfadden DO Active PREDNISONE 20 MG TAB 1 po bid 2 days, then daily for 2 days 12/27 PREDNISONE 57713745236 No Longer Active Alexander LOPEZ Active AZITHROMYCIN 250 MG TABS 2 po qd x 1 day, then 1 po qd x 4 days AZITHROMYCIN 81268484248 No Longer Active Daniele Mcfadden DO Active MUCINEX MAXIMUM STRENGTH [id number] 1 po qd GUAIFENESIN XR12H- TAB 06902000214 No Longer Active Daniele Mcfadden DO Active AZITHROMYCIN 250 MG TABS 2 po qd x 1 day, then 1 po qd x 4 days AZITHROMYCIN 33388975419 No Longer Active Margarito Kelley MD Active MUCINEX MAXIMUM STRENGTH [id number]-[id number] 1 po qd MUCINEX MAXIMUM STRENGTH [id number] GUAIFENESIN CH89P-DLA Inactive PREDNISONE 20 MG TAB 1 po bid 2 days, then daily for 2 days 12/27 PREDNISONE 20 MG TAB 458086 PREDNISONE Inactive PREDNISONE 20 MG TAB 1 tablet twice daily for 2 days, then 1 tablet once daily for 2 days PREDNISONE 20 MG TAB 907562 PREDNISONE Inactive HYDROCODONE-ACETAMINOPHEN 5-325 MG TABS 1-2 q 4-6 hrs prn pain 20 tabs 07/04 HYDROCODONE-ACETAMINOPHEN 5-325 MG TABS 131084 HYDROCODONE- ACETAMINOPHEN Inactive MELOXICAM 15 MG TABS 1 po q day for pain with food MELOXICAM 15 MG TABS 207568 MELOXICAM Inactive FLONASE 50 MCG/ACT SUSP 1 spray each nostril am and hs FLONASE 50 MCG/ACT SUSP FLUTICASONE PROPIONATE Inactive GUAIFENESIN-CODEINE 100-10 MG/5ML SYRP 5ml every 4 to 6 hours as needed for cough GUAIFENESIN-CODEINE 100-10 MG/5ML SYRP 489103 GUAIFENESIN-CODEINE Inactive ZITHROMAX Z-MARY 250 MG TABS 2 today and then 1 daily for 4 days ZITHROMAX Z-MARY 250 MG TABS 7846041 AZITHROMYCIN Inactive CEFTIN 500 MG TAB 1 tablet by mouth twice daily for ten days. CEFTIN 500 MG TAB 175432 CEFUROXIME AXETIL Inactive PROAIR HFA 108 (90 BASE) MCG/ACT AERS 2 puffs every 4 hours as needed 2014 PROAIR HFA 108 (90 BASE) MCG/ACT AERS ALBUTEROL SULFATE Inactive E-Z SPACER ERIBERTO use with proair inhalier every 4 times as need. E-Z SPACER ERIBERTO SPACER/AERO-HOLDING CHAMBERS Inactive IRVING-D ALLERGY & CONGESTION [id number] 1 po bid IRVING-D ALLERGY & CONGESTION [id number] FEXOFENADINE-PSEUDOEPHEDRINE XR12H- TAB Inactive PREDNISONE 20 MG TAB 1 tablet twice daily for 2 days, then 1 tablet once daily for 2 days PREDNISONE 20 MG TAB 281802 PREDNISONE Inactive GUAIFENESIN 600 MG KI80M-PLD 1 twice a day as needed for congestion GUAIFENESIN 600 MG XB06W-BGH GUAIFENESIN Inactive FLUTICASONE PROPIONATE 50 MCG/ACT SUSP 1 to 2 sprays each nostril daily 03/20 FLUTICASONE PROPIONATE 50 MCG/ACT SUSP 7898137 FLUTICASONE PROPIONATE Inactive MUCINEX D 60-600 MG [id number]-HIL 1 po BID PRN Congestion MUCINEX D 60-600 MG [id number]-YGK PSEUDOEPHEDRINE-GUAIFENESIN Inactive AZITHROMYCIN 250 MG TABS 2 po qd x 1 day, then 1 po qd x 4 days AZITHROMYCIN 250 MG TABS 7183469 AZITHROMYCIN Inactive AZITHROMYCIN 250 MG TABS 2 po qd x 1 day, then 1 po qd x 4 days AZITHROMYCIN 250 MG TABS 4311219 AZITHROMYCIN Inactive MEDROL (MARY) 4 MG TABS 6 pills on day 1, 5 pills on day 2, 4 pills on day 3, 4 pills on day 4, 2 pills on day 5, 1 pill on day 6 MEDROL (MARY) 4 MG TABS 553805 METHYLPREDNISOLONE Inactive CEPHALEXIN 500 MG CAPS 1 tablet by mouth three times daily for ten days 06/25 CEPHALEXIN 500 MG CAPS 259825 CEPHALEXIN Inactive PREDNISONE 20 MG TAB 2 tabs daily for 3 days, 1 tab daily for 3 days, 1/2 tab daily for 2 days PREDNISONE 20 MG TAB 591525 PREDNISONE Inactive CEFDINIR 300 MG CAPS 1 cap by mouth twice a day CEFDINIR 300 MG CAPS 051261 CEFDINIR Inactive PREDNISONE 20 MG TAB 2 tabs daily for 3 days, 1 tab daily for 3 days, 1/2 tab daily for 2 days PREDNISONE 20 MG TAB 460995 PREDNISONE Inactive PREDNISONE 20 MG TAB 2 tabs daily for 3 days, 1 tab daily for 3 days, 1/2 tab daily for 2 days PREDNISONE 20 MG TAB 463491 PREDNISONE Inactive CEFDINIR 300 MG CAPS by mouth twice a day CEFDINIR 300 MG CAPS 20021026 CEFDINIR Inactive PREDNISONE 20 MG TAB 2 tabs daily for 3 days, 1 tab daily for 3 days, 1/2 tab daily for 2 days PREDNISONE 20 MG TAB 657859 PREDNISONE Inactive CEFDINIR 300 MG CAPS 1 po BID x 10 days CEFDINIR 300 MG CAPS 20021026 CEFDINIR Inactive AZITHROMYCIN 250 MG TABS 2 po qd x 1 day, then 1 po qd x 4 days AZITHROMYCIN 250 MG TABS 2150450 AZITHROMYCIN Inactive PREDNISONE 20 MG TAB 2 tabs daily for 3 days, 1 tab daily for 3 days, 1/2 tab daily for 2 days start tomorrow 07/31/16 PREDNISONE 20 MG TAB 312008 PREDNISONE Inactive Immunizations Vaccine Administration Date Value Standard Description Human Papillomavirus vaccine (Gardasil) #2, (HPV #2) Gardasil [ [id number]] human papilloma virus vaccine, quadrivalent Seasonal influenza vaccine, injectable, containing preservative, for > 3 years old (Afluria, FluLaval, Fluzone, Fluvirin, Fluarix, Agriflu(>=18 yo)) Fluzone (>3 yrs.) [[id number]] Influenza, seasonal, injectable Human Papillomavirus Vaccine (Gardasil) #1 Given (HPV #1) Gardasil [CVX62] human papilloma virus vaccine, quadrivalent hepatitis A immunization #2 Havrix-Pedi hepatitis A vaccine, unspecified formulation Boostrix (Tetanus toxoid, reduced diphtheria toxoid and acellular pertussis vaccine, adsorbed), booster Boostrix [[id number]] tetanus toxoid, reduced diphtheria toxoid, and acellular [...] Value Unit Range Description blood pressure, diastolic - 8462-4 70 mm[Hg] BP herndon blood pressure, systolic - 8480-6 105 mm[Hg] BP sys pulse rate E&M - 8867-4 95 /min Heart rate temperature E&M 98.7 [degF] Body temperature weight E&M - 3141-9 212 [lb_av] Weight Measured blood pressure, diastolic - 8462-4 66 mm[Hg] BP herndon blood pressure, systolic - 8480-6 112 mm[Hg] BP sys pulse rate E&M - 8867-4 98 /min Heart rate temperature E&M 97.7 [degF] Body temperature weight E&M - 3141-9 210.5 [lb_av] Weight Measured blood pressure, diastolic - 8462-4 65 mm[Hg] BP herndon blood pressure, systolic - 8480-6 110 mm[Hg] BP sys pulse rate E&M - 8867-4 86 /min Heart rate temperature E&M 97.6 [degF] Body temperature weight E&M - 3141-9 210 [lb_av] Weight Measured blood pressure, diastolic - 8462-4 77 mm[Hg] BP herndon blood pressure, systolic - 8480-6 125 mm[Hg] BP sys height E&M - 8302-2 70 [in_us] Bdy height pulse rate E&M - 8867-4 93 /min Heart rate temperature E&M 98.9 [degF] Body temperature weight E&M - 3141-9 210.31 [lb_av] Weight Measured blood pressure, diastolic - 8462-4 64 mm[Hg] BP herndon blood pressure, systolic - 8480-6 114 mm[Hg] BP sys pulse rate E&M - 8867-4 74 /min Heart rate temperature E&M 98.1 [degF] Body temperature weight E&M - 3141-9 211 [lb_av] Weight Measured Diagnostic Results Date Name Value Unit Range Description Lab Report: Rapid Strep - Lab Microbial identification kit, rapid strep method Negative-Throat Culture to Follow Negative Lab Report: MISA INFLUENZA A/B, RapidStrep Rflx/Cx - Lab Microbial identification kit, rapid strep method Negative-Throat Culture to Follow Negative Lab Report: MISA INFLUENZA A/B, RapidStrep Rflx/Cx - Toxicology rapid flu test Negative Negative;Positive Encounters Code Encounter Date Provider Facility CPT-92775 Level 3 Est. Patient 10:49:47 FACULTY RESEARCH PHYSICIAN Griselda Horvath [facility] CPT-06821 Level 3 Est. Patient 08:43:59 FACULTY RESEARCH PHYSICIAN Jessika Des [facility] CPT-11376 Level 3 Est. Patient 09:05:19 FACULTY RESEARCH PHYSICIAN Griselda Horvath [facility]-88164 Level 3 Est. Patient 15:45:46 CDT Griselda Horvath [facility] CPT-90221 Level 3 Est. Patient 14:15:52 CDT Daniele Mcfadden [facility]-10945 Level 3 Est. Patient 13:57:19 FACULTY RESEARCH PHYSICIAN Margarito Kelley MD [facility] [place]-63712 Level 3 Est. Patient 09:16:05 FACULTY RESEARCH PHYSICIAN Margarito Kelley MD [facility] CPT-27407 Level 3 Est. Patient 15:37:06 FACULTY RESEARCH PHYSICIAN Daniele Mcfadden [facility] CPT-38236 Level 3 Est. Patient 11:56:34 FACULTY RESEARCH PHYSICIAN Renée Adames [facility] CPT-61601 Level 3 Est. Patient 12:19:42 CDT Daniele Mcfadden [facility] CPT-99701 Level 3 Est. Patient 11:08:45 CDT Annita Mejia MD PhD [facility] CPT-78553 Level 3 Est. Patient 12:00:17 CDT Kendell Coronado MD [facility] CPT-67092 Level 3 Est. Patient 12:27:25 CDT Daniele Mcfadden [facility]-08644 Level 3 Est. Patient 18:45:11 FACULTY RESEARCH PHYSICIAN Daniele Mcfadden [facility] CPT-86286 Level 3 Est. Patient 10:12:24 FACULTY RESEARCH PHYSICIAN Daniele Mcfadden [facility] CPT-26912 Level 3 Est. Patient 14:35:11 FACULTY RESEARCH PHYSICIAN Daniele Mcfadden [facility] CPT-72756 Level 3 Est. Patient 14:11:04 CDT Daniele Mcfadden [facility] CPT-41003 Level 3 Est. Patient 10:52:13 CDT Alexander LOPEZ [facility] CPT-60589 Level 3 Est. Patient 11:01:08 FACULTY RESEARCH PHYSICIAN Daniele Mcfadden [facility] CPT-87467 Level 3 Est. Patient 10:55:35 CDT Daniele Mcfadden [facility] CPT-37726 Level 3 Est. Patient 14:03:08 CDT Daniele Mcfadden [facility] CPT-27384 Level 3 Est. Patient 11:26:19 CDT Margarito Kelley MD [facility] CPT-02766 Level 2 Est. Patient 15:32:04 FACULTY RESEARCH PHYSICIAN Daniele Mcfadden [facility] CPT-73776 Level 3 Est. Patient 16:01:26 FACULTY RESEARCH PHYSICIAN Daniele Mcfadden [facility] CPT-16456 Level 3 Est. Patient 06:37:10 FACULTY RESEARCH PHYSICIAN Daniele Mcfadden [facility] Procedures Code Procedure Name Date Entry Date Standard Description CPT-92874 Throat Culture - LAB USE ONLY 12:15:45 FACULTY RESEARCH PHYSICIAN CPT-45887 Misa Flu A/B - LAB USE ONLY 12:15:45 FACULTY RESEARCH PHYSICIAN CPT-79880 Rapid Strep (Reflex throat) - LAB USE ONLY 12:15:45 FACULTY RESEARCH PHYSICIAN CPT-96453 Rapid Strep (Grp A) - LAB USE ONLY 13:06:06 CDT CPT-41273 Abd compl w upright 12:34:39 CDT CPT-29183 Immunization Single Admin 11:38:41 CDT CPT-93517 Fluzone Quadrivalent Intramuscular Suspension 0.5 ML 11: 38:41 CDT CPT-OV Office Visit 14:45:12 FACULTY RESEARCH PHYSICIAN CPT-07705 [employer] all organs plus proximal aorta and distal IVC 2012 12:13:02 FACULTY RESEARCH PHYSICIAN CPT-46923 Abd compl w upright 15:12:58 FACULTY RESEARCH PHYSICIAN CPT-39962 Venipuncture Draw Fee 14:38:32 FACULTY RESEARCH PHYSICIAN CPT-72826 Administration single or combination vaccine inc oral 17 :10:04 CDT CPT-66971 Gardasil 17:10:04 CDT CPT-44868 Venipuncture Draw Fee 16:07:54 FACULTY RESEARCH PHYSICIAN CPT-59434 Administration 2+ single or combination vaccines inc oral 17:22:02 CDT CPT-39467 Administration single or combination vaccine inc oral 17 :22:02 CDT CPT-22608 Influenza split virus > age 3 17:22:02 CDT CPT-82902 Gardasil 17:22:02 CDT CPT-66079 Administration 2+ single or combination vaccines inc oral 14:38:31 CDT CPT-35953 Administration single or combination vaccine inc oral 14 :38:31 CDT CPT-26453 Meningococcal Conjugate Vacine (Menactra) 14:38:31 CDT CPT-17339 Gardasil 14:38:31 CDT
--- OUTSIDE RECORDS SUMMARY | 2018-02-15 06:27 | XMS REPORT | Clinical Summary ---
Author Author Admin, [facility] Organization [facility] Address Unknown Phone Unavailable Allergies, Adverse Reactions, [...] unspecified site Sinusitis 473.9 Active Griselda Horvath PHARMACY DATA ANALYST Unspecified sinusitis (chronic) Eustachian tube dysfunction, right 381.81 Active Margarito Kelley MD Dysfunction of Eustachian tube Pharyngitis-Acute 462 Active Daniele Mcfadden DO Acute pharyngitis URI 465.9 Active Griselda Horvath PHARMACY DATA ANALYST Acute upper respiratory infections of unspecified site Allergic rhinitis 477.9 Active Jessika Nunes PHARMACY DATA ANALYST Allergic rhinitis, cause unspecified Acute rhinosinusitis 461.9 Active Jessika Nunes PHARMACY DATA ANALYST Acute sinusitis, unspecified Fever 780.60 Active Griselda Horvath PHARMACY DATA ANALYST Fever, unspecified ALLERGIC RHINITIS ICD-477.9 Inactive Errol [...] pain, left ICD-719.46 Inactive Margarito Kelley MD Medication List Medication Instructions Start Date Stop Date Generic Name NDC Status Provider Patient Instruction PREDNISONE 20 MG TAB 2 tabs daily for 3 days, 1 tab daily for 3 days, 1/2 tab daily for 2 days start tomorrow 07/31/16 PREDNISONE [id number] No Longer Active Jillina Frazell PHARMACY DATA ANALYST Active AZITHROMYCIN 250 MG TABS 2 po qd x 1 day, then 1 po qd x 4 days AZITHROMYCIN [id number] No Longer Active Jillina Frazell PHARMACY DATA ANALYST Active MUCINEX D 60-600 MG [id number] 1 po BID PRN Congestion PSEUDOEPHEDRINE-GUAIFENESIN [id number] No Longer Active Jessikatanner Nunes PHARMACY DATA ANALYST Active CEFDINIR 300 MG CAPS 1 po BID x 10 days CEFDINIR 26593669838 No Longer Active Jillina Frazell PHARMACY DATA ANALYST Active PREDNISONE 20 MG TAB 2 tabs daily for 3 days, 1 tab daily for 3 days, 1/2 tab daily for 2 days PREDNISONE [id number] No Longer Active Jillina Frazell PHARMACY DATA ANALYST Active FLUTICASONE PROPIONATE 50 MCG/ACT SUSP 1 to 2 sprays each nostril daily 03/20 FLUTICASONE PROPIONATE 86400780076 No Longer Active Jillina Frazell PHARMACY DATA ANALYST Active GUAIFENESIN 600 MG [id number]-[id number] 1 twice a day as needed for congestion GUAIFENESIN 03981115727 No Longer Active Jillina Frazell PHARMACY DATA ANALYST Active CEFDINIR 300 MG CAPS by mouth twice a day CEFDINIR 92144551889 No Longer Active Jillina Frazell PHARMACY DATA ANALYST Active PREDNISONE 20 MG TAB 1 tablet twice daily for 2 days, then 1 tablet once daily for 2 days PREDNISONE 34378515168 No Longer Active Jillina Frazell PHARMACY DATA ANALYST Active PREDNISONE 20 MG TAB 2 tabs daily for 3 days, 1 tab daily for 3 days, 1/2 tab daily for 2 days PREDNISONE 30229283990 No Longer Active Margarito Kelley MD Active IRVING-D ALLERGY & CONGESTION [id number] 1 po bid FEXOFENADINE-PSEUDOEPHEDRINE [id number] 30525277636 No Longer Active Margarito Kelley MD Active PREDNISONE 20 MG TAB 2 tabs daily for 3 days, 1 tab daily for 3 days, 1/2 tab daily for 2 days PREDNISONE 21669359018 No Longer Active Jillina Frazell PHARMACY DATA ANALYST Active CEFDINIR 300 MG CAPS 1 cap by mouth twice a day CEFDINIR 91018673148 No Longer Active Jillina Frazell PHARMACY DATA ANALYST Active E-Z SPACER ERIBERTO use with proair inhalier every 4 times as need. SPACER/AERO-HOLDING CHAMBERS 40175458218 No Longer Active Jillina Frazell PHARMACY DATA ANALYST Active PROAIR HFA 108 (90 BASE) MCG/ACT AERS 2 puffs every 4 hours as needed 2014 ALBUTEROL SULFATE 86247952238 No Longer Active Jillina Frazell PHARMACY DATA ANALYST Active CEFTIN 500 MG TAB 1 tablet by mouth twice daily for ten days. CEFUROXIME AXETIL 97220900027 No Longer Active Jillina Frazell PHARMACY DATA ANALYST Active PREDNISONE 20 MG TAB 2 tabs daily for 3 days, 1 tab daily for 3 days, 1/2 tab daily for 2 days PREDNISONE 85959671417 No Longer Active Margarito Kelley MD Active CEPHALEXIN 500 MG CAPS 1 tablet by mouth three times daily for ten days 06/25 CEPHALEXIN 80179618873 No Longer Active Renée Adames APRN Active MEDROL (MARY) 4 MG TABS 6 pills on day 1, 5 pills on day 2, 4 pills on day 3, 4 pills on day 4, 2 pills on day 5, 1 pill on day 6 METHYLPREDNISOLONE 31541897808 No Longer Active Annita Mejia MD PhD Active ZITHROMAX Z-MARY 250 MG TABS 2 today and then 1 daily for 4 days AZITHROMYCIN 98764140393 No Longer Active Annita Mejia MD PhD Active GUAIFENESIN-CODEINE 100-10 MG/5ML SYRP 5ml every 4 to 6 hours as needed for cough GUAIFENESIN-CODEINE 86272596991 No Longer Active Annita Mejia MD PhD Active FLONASE 50 MCG/ACT SUSP 1 spray each nostril am and hs FLUTICASONE PROPIONATE 09315467895 No Longer Active Kendell Coronado MD Active MELOXICAM 15 MG TABS 1 po q day for pain with food MELOXICAM 64867078452 No Longer Active Kendell Coronado MD Active HYDROCODONE-ACETAMINOPHEN 5-325 MG TABS 1-2 q 4-6 hrs prn pain 20 tabs 07/04 HYDROCODONE-ACETAMINOPHEN 43105919094 No Longer Active Daniele Mcfadden DO Active PREDNISONE 20 MG TAB 1 tablet twice daily for 2 days, then 1 tablet once daily for 2 days PREDNISONE 74180796945 No Longer Active Daniele Mcfadden DO Active PREDNISONE 20 MG TAB 1 po bid 2 days, then daily for 2 days 12/27 PREDNISONE 27497234260 No Longer Active Alexander LOPEZ Active AZITHROMYCIN 250 MG TABS 2 po qd x 1 day, then 1 po qd x 4 days AZITHROMYCIN 74074303327 No Longer Active Daniele Mcfadden DO Active MUCINEX MAXIMUM STRENGTH [id number] 1 po qd GUAIFENESIN XR12H- TAB 04667641538 No Longer Active Daniele Mcfadden DO Active AZITHROMYCIN 250 MG TABS 2 po qd x 1 day, then 1 po qd x 4 days AZITHROMYCIN 14757675845 No Longer Active Margarito Kelley MD Active MUCINEX MAXIMUM STRENGTH TI88H-TJC 1 po qd MUCINEX MAXIMUM STRENGTH YX51B-XUL GUAIFENESIN XQ57A-IJR Inactive PREDNISONE 20 MG TAB 1 po bid 2 days, then daily for 2 days 12/27 PREDNISONE 20 MG TAB 318923 PREDNISONE Inactive PREDNISONE 20 MG TAB 1 tablet twice daily for 2 days, then 1 tablet once daily for 2 days PREDNISONE 20 MG TAB 742357 PREDNISONE Inactive HYDROCODONE-ACETAMINOPHEN 5-325 MG TABS 1-2 q 4-6 hrs prn pain 20 tabs 07/04 HYDROCODONE-ACETAMINOPHEN 5-325 MG TABS 696988 HYDROCODONE- ACETAMINOPHEN Inactive MELOXICAM 15 MG TABS 1 po q day for pain with food MELOXICAM 15 MG TABS 674304 MELOXICAM Inactive FLONASE 50 MCG/ACT SUSP 1 spray each nostril am and hs FLONASE 50 MCG/ACT SUSP FLUTICASONE PROPIONATE Inactive GUAIFENESIN-CODEINE 100-10 MG/5ML SYRP 5ml every 4 to 6 hours as needed for cough GUAIFENESIN-CODEINE 100-10 MG/5ML SYRP 424319 GUAIFENESIN-CODEINE Inactive ZITHROMAX Z-MARY 250 MG TABS 2 today and then 1 daily for 4 days ZITHROMAX Z-MARY 250 MG TABS 8948255 AZITHROMYCIN Inactive CEFTIN 500 MG TAB 1 tablet by mouth twice daily for ten days. CEFTIN 500 MG TAB [id number] CEFUROXIME AXETIL Inactive PROAIR HFA 108 (90 BASE) MCG/ACT AERS 2 puffs every 4 hours as needed 2014 PROAIR HFA 108 (90 BASE) MCG/ACT AERS ALBUTEROL SULFATE Inactive E-Z SPACER ERIBERTO use with proair inhalier every 4 times as need. E-Z SPACER ERIBERTO SPACER/AERO-HOLDING CHAMBERS Inactive IRVING-D ALLERGY & CONGESTION [id number] 1 po bid IRVING-D ALLERGY & CONGESTION PV72B-QHE FEXOFENADINE-PSEUDOEPHEDRINE XR12H- TAB Inactive PREDNISONE 20 MG TAB 1 tablet twice daily for 2 days, then 1 tablet once daily for 2 days PREDNISONE 20 MG TAB [id number] PREDNISONE Inactive GUAIFENESIN 600 MG [id number]-ZWA 1 twice a day as needed for congestion GUAIFENESIN 600 MG SO01C-XDX GUAIFENESIN Inactive FLUTICASONE PROPIONATE 50 MCG/ACT SUSP 1 to 2 sprays each nostril daily 03/20 FLUTICASONE PROPIONATE 50 MCG/ACT SUSP 5824487 FLUTICASONE PROPIONATE Inactive MUCINEX D 60-600 MG [id number] 1 po BID PRN Congestion MUCINEX D 60-600 MG LV64Z-TJO PSEUDOEPHEDRINE-GUAIFENESIN Inactive AZITHROMYCIN 250 MG TABS 2 po qd x 1 day, then 1 po qd x 4 days AZITHROMYCIN 250 MG TABS 7734761 AZITHROMYCIN Inactive AZITHROMYCIN 250 MG TABS 2 po qd x 1 day, then 1 po qd x 4 days AZITHROMYCIN 250 MG TABS 7842034 AZITHROMYCIN Inactive MEDROL (MARY) 4 MG TABS 6 pills on day 1, 5 pills on day 2, 4 pills on day 3, 4 pills on day 4, 2 pills on day 5, 1 pill on day 6 MEDROL (MARY) 4 MG TABS 504771 METHYLPREDNISOLONE Inactive CEPHALEXIN 500 MG CAPS 1 tablet by mouth three times daily for ten days 06/25 CEPHALEXIN 500 MG CAPS 355914 CEPHALEXIN Inactive PREDNISONE 20 MG TAB 2 tabs daily for 3 days, 1 tab daily for 3 days, 1/2 tab daily for 2 days PREDNISONE 20 MG TAB 957394 PREDNISONE Inactive CEFDINIR 300 MG CAPS 1 cap by mouth twice a day CEFDINIR 300 MG CAPS 906881 CEFDINIR Inactive PREDNISONE 20 MG TAB 2 tabs daily for 3 days, 1 tab daily for 3 days, 1/2 tab daily for 2 days PREDNISONE 20 MG TAB 660569 PREDNISONE Inactive PREDNISONE 20 MG TAB 2 tabs daily for 3 days, 1 tab daily for 3 days, 1/2 tab daily for 2 days PREDNISONE 20 MG TAB 869589 PREDNISONE Inactive CEFDINIR 300 MG CAPS by mouth twice a day CEFDINIR 300 MG CAPS 20021026 CEFDINIR Inactive PREDNISONE 20 MG TAB 2 tabs daily for 3 days, 1 tab daily for 3 days, 1/2 tab daily for 2 days PREDNISONE 20 MG TAB 294037 PREDNISONE Inactive CEFDINIR 300 MG CAPS 1 po BID x 10 days CEFDINIR 300 MG CAPS 20021026 CEFDINIR Inactive AZITHROMYCIN 250 MG TABS 2 po qd x 1 day, then 1 po qd x 4 days AZITHROMYCIN 250 MG TABS 2403634 AZITHROMYCIN Inactive PREDNISONE 20 MG TAB 2 tabs daily for 3 days, 1 tab daily for 3 days, 1/2 tab daily for 2 days start tomorrow 07/31/16 PREDNISONE 20 MG TAB 485252 PREDNISONE Inactive Immunizations Vaccine Administration Date Value Standard Description Human Papillomavirus vaccine (Gardasil) #2, (HPV #2) Gardasil [ CVX62] human papilloma virus vaccine, quadrivalent Seasonal influenza vaccine, injectable, containing preservative, for > 3 years old (Afluria, FluLaval, Fluzone, Fluvirin, Fluarix, Agriflu(>=18 yo)) Fluzone (>3 yrs.) [FXW362] Influenza, seasonal, injectable Human Papillomavirus Vaccine (Gardasil) #1 Given (HPV #1) Gardasil [CVX62] human papilloma virus vaccine, quadrivalent hepatitis A immunization #2 Havrix-Pedi hepatitis A vaccine, unspecified formulation Boostrix (Tetanus toxoid, reduced diphtheria toxoid and acellular pertussis vaccine, adsorbed), booster Boostrix [ZXJ043] tetanus toxoid, reduced diphtheria toxoid, and acellular pertussis vaccine, adsorbed hepatitis A immunization #1 Havrix-Pedi hepatitis A vaccine, unspecified formulation DPT immunization #5 DTaP oral polio vaccine (OPV) #4 IPV poliovirus vaccine, unspecified formulation MMR (measles, mumps, rubella) virus immunization #2 MMR Hemophilus influenza B immunization #4 Historical Haemophilus influenzae type b vaccine, conjugate unspecified formulation oral polio vaccine (OPV) #3 IPV poliovirus vaccine, unspecified formulation MMR (measles, mumps, rubella) virus immunization #1 MMR DPT immunization #4 DTaP Hemophilus influenza B immunization #3 ProHIBit Haemophilus influenzae type b vaccine, conjugate unspecified formulation DPT immunization #3 DTaP hepatitis B vaccine #3 Historical hepatitis B [...] Negative;Positive Encounters Code Encounter Date Provider Facility CPT-49050 Level 3 Est. Patient 10:49:47 ADMINISTRATIVE PROFESSIONAL Griselda Horvath [facility] CPT-15363 Level 3 Est. Patient 08:43:59 ADMINISTRATIVE PROFESSIONAL Jessika Des [facility] CPT-49079 Level 3 Est. Patient 09:05:19 ADMINISTRATIVE PROFESSIONAL Griselda Horvath [facility] [place]-[address]503 Level 3 Est. Patient 15:45:46 CDT Griselda Horvath [facility] CPT-46630 Level 3 Est. Patient 14:15:52 CDT Daniele Mcfadden [facility]-03059 Level 3 Est. Patient 13:57:19 ADMINISTRATIVE PROFESSIONAL Margarito Kelley MD [facility]-37920 Level 3 Est. Patient 09:16:05 ADMINISTRATIVE PROFESSIONAL Margarito Kelley MD [facility] CPT-23276 Level 3 Est. Patient 15:37:06 ADMINISTRATIVE PROFESSIONAL Daniele Mcfadden [facility] CPT-45946 Level 3 Est. Patient 11:56:34 ADMINISTRATIVE PROFESSIONAL Renée Adames [facility] CPT-42196 Level 3 Est. Patient 12:19:42 CDT Daniele Mcfadden [facility] CPT-92346 Level 3 Est. Patient 11:08:45 CDT Annita Mejia MD PhD [facility] CPT-41125 Level 3 Est. Patient 12:00:17 CDT Kendell Coronado MD [facility] CPT-19185 Level 3 Est. Patient 12:27:25 CDT Daniele Mcfadden [facility]-87123 Level 3 Est. Patient 18:45:11 ADMINISTRATIVE PROFESSIONAL Daniele Mcfadden [facility] CPT-82752 Level 3 Est. Patient 10:12:24 ADMINISTRATIVE PROFESSIONAL Daniele Mcfadden [facility] CPT-04689 Level 3 Est. Patient 14:35:11 ADMINISTRATIVE PROFESSIONAL Daniele Mcfadden [facility] CPT-21702 Level 3 Est. Patient 14:11:04 CDT Daniele Mcfadden [facility] CPT-56071 Level 3 Est. Patient 10:52:13 CDT Alexander LOPEZ [facility] CPT-20516 Level 3 Est. Patient 11:01:08 ADMINISTRATIVE PROFESSIONAL Daniele Mcfadden [facility] CPT-06884 Level 3 Est. Patient 10:55:35 CDT Daniele Mcfadden [facility] CPT-50757 Level 3 Est. Patient 14:03:08 CDT Daniele Mcfadden [facility] CPT-07829 Level 3 Est. Patient 11:26:19 CDT Margarito Kelley MD [facility] CPT-06783 Level 2 Est. Patient 15:32:04 ADMINISTRATIVE PROFESSIONAL Daniele Mcfadden [facility] CPT-81066 Level 3 Est. Patient 16:01:26 ADMINISTRATIVE PROFESSIONAL Daniele Mcfadden [facility] CPT-74815 Level 3 Est. Patient 06:37:10 ADMINISTRATIVE PROFESSIONAL Daniele Mcfadden [facility] Procedures Code Procedure Name Date Entry Date Standard Description CPT-09246 Throat Culture - LAB USE ONLY 12:15:45 ADMINISTRATIVE PROFESSIONAL CPT-97487 Misa Flu A/B - LAB USE ONLY 12:15:45 ADMINISTRATIVE PROFESSIONAL CPT-80917 Rapid Strep (Reflex throat) - LAB USE ONLY 12:15:45 ADMINISTRATIVE PROFESSIONAL CPT-14643 Rapid Strep (Grp A) - LAB USE ONLY 13:06:06 CDT CPT-16417 Abd compl w upright 12:34:39 CDT CPT-55588 Immunization Single Admin 11:38:41 CDT CPT-20440 Fluzone Quadrivalent Intramuscular Suspension 0.5 ML 11: 38:41 CDT CPT-OV Office Visit 14:45:12 ADMINISTRATIVE PROFESSIONAL CPT-89300 [employer] inc all organs plus proximal aorta and distal IVC 2012 12:13:02 ADMINISTRATIVE PROFESSIONAL CPT-24528 Abd compl w upright 15:12:58 ADMINISTRATIVE PROFESSIONAL CPT-47868 Venipuncture Draw Fee 14:38:32 ADMINISTRATIVE PROFESSIONAL CPT-59057 Administration single or combination vaccine inc oral 17 :10:04 CDT CPT-03691 Gardasil 17:10:04 CDT CPT-71396 Venipuncture Draw Fee 16:07:54 ADMINISTRATIVE PROFESSIONAL CPT-12158 Administration 2+ single or combination vaccines inc oral 17:22:02 CDT CPT-27168 Administration single or combination vaccine inc oral 17 :22:02 CDT CPT-57222 Influenza split virus > age 3 17:22:02 CDT CPT-21001 Gardasil 17:22:02 CDT CPT-00583 Administration 2+ single or combination vaccines inc oral 14:38:31 CDT CPT-08712 Administration single or combination vaccine inc oral 14 :38:31 CDT CPT-09748 Meningococcal Conjugate Vacine (Menactra) 14:38:31 CDT CPT-67295 Gardasil 14:38:31 CDT
--- OUTSIDE RECORDS SUMMARY | 2018-02-15 06:28 | XMS REPORT | Clinical Summary ---
Author Author Admin, Ludmila Organization [employer] Address Unknown Phone Unavailable Allergies, Adverse Reactions, [...] wart KNEE PAIN, RIGHT 719.46 Resolved Errol Pcak MD Pain in joint involving lower leg [...] of unspecified site Abdominal pain 789.00 Resolved eKndell Coronado MD Abdominal pain, unspecified site Ankle [...] unspecified site Sinusitis 473.9 Active Griselda Horvath [employer] ME[employer]IC Unspecified sinusitis (chronic) Eustachian tube dysfunction, right 381.81 Active Margarito Kelley MD Dysfunction of Eustachian tube Pharyngitis-Acute 462 Active Daniele Mcfadden DO Acute pharyngitis URI 465.9 Active Griselda Horvath [employer]LL MECH[employer]IC Acute upper respiratory infections of unspecified site Allergic rhinitis 477.9 Active Jessika Nunes TOLL MECH[employer]IC Allergic rhinitis, cause unspecified Acute rhinosinusitis 461.9 Active Jessika Nunes TOLL MECHANIC Acute sinusitis, unspecified ALLERGIC RHINITIS ICD-477.9 Inactive Errol Pack [...] R I ICD-465.9 Inactive Daniele Mcfadden DO Ankle sprain ICD-845.00 Inactive Kendell Coronado MD Pharyngitis ICD-462 Inactive Annita Mejia MD PhD Abdominal pain ICD-789.00 Inactive Kendell Coronado MD Vaccination against influenza ICD-V04.81 Inactive Margarito Kelley MD Flank pain, right ICD-789.09 Inactive Margarito Kelley MD Pharyngitis, acute ICD-462 Inactive Margarito Kelley MD Knee pain, left ICD-719.46 Inactive Margarito Kelley MD Sinusitis, acute ICD-461.9 Inactive Margarito Kelley MD Fatigue ICD-780.79 Inactive Margarito Kelley MD 2014 Medication List Medication Instructions Start Date Stop Date Generic Name NDC Status Provider Patient Instruction MUCINEX D 60-600 MG [id number] 1 po BID PRN Congestion PSEUDOEPHEDRINE-GUAIFENESIN 56801856901 No Longer Active Jessika Eaton TOLL MECHANIC Active CEFDINIR 300 MG CAPS 1 po BID x 10 days CEFDINIR 12269044190 No Longer Active Jillina Frazell TOLL MECHANIC Active PREDNISONE 20 MG TAB 2 tabs daily for 3 days, 1 tab daily for 3 days, 1/2 tab daily for 2 days PREDNISONE 40515658465 No Longer Active Jillina Frazell TOLL MECHANIC Active FLUTICASONE PROPIONATE 50 MCG/ACT SUSP 1 to 2 sprays each nostril daily 03/20 FLUTICASONE PROPIONATE 98078531722 No Longer Active Jillina Frazell TOLL MECHANIC Active GUAIFENESIN 600 MG [id number] 1 twice a day as needed for congestion GUAIFENESIN 05879365840 No Longer Active Jillina Frazell TOLL MECHANIC Active CEFDINIR 300 MG CAPS by mouth twice a day CEFDINIR 50802417490 No Longer Active Jillina Frazell TOLL MECHANIC Active PREDNISONE 20 MG TAB 1 tablet twice daily for 2 days, then 1 tablet once daily for 2 days PREDNISONE 83321078229 No Longer Active Jillina Frazell TOLL MECHANIC Active PREDNISONE 20 MG TAB 2 tabs daily for 3 days, 1 tab daily for 3 days, 1/2 tab daily for 2 days PREDNISONE 78725123344 No Longer Active Margarito Kelley MD Active IRVING-D ALLERGY & CONGESTION [id number]-QIY 1 po bid FEXOFENADINE-PSEUDOEPHEDRINE [id number] 33183109282 No Longer Active Margarito Kelley MD Active PREDNISONE 20 MG TAB 2 tabs daily for 3 days, 1 tab daily for 3 days, 1/2 tab daily for 2 days PREDNISONE 91190544783 No Longer Active Jillina Frazell TOLL MECHANIC Active CEFDINIR 300 MG CAPS 1 cap by mouth twice a day CEFDINIR 28350095833 No Longer Active Jillina Frazell TOLL MECHANIC Active E-Z SPACER ERIBERTO use with proair inhalier every 4 times as need. SPACER/AERO-HOLDING CHAMBERS 76974183072 No Longer Active Jillina Frazell TOLL MECHANIC Active PROAIR HFA 108 (90 BASE) MCG/ACT AERS 2 puffs every 4 hours as needed 2014 ALBUTEROL SULFATE 78721749595 No Longer Active Jillina Frazell TOLL MECHANIC Active CEFTIN 500 MG TAB 1 tablet by mouth twice daily for ten days. CEFUROXIME AXETIL 82645184368 No Longer Active Ezekielllina Framarkl TOLL MECHANIC Active PREDNISONE 20 MG TAB 2 tabs daily for 3 days, 1 tab daily for 3 days, 1/2 tab daily for 2 days PREDNISONE 92843037349 No Longer Active Margarito Kelley MD Active CEPHALEXIN 500 MG CAPS 1 tablet by mouth three times daily for ten days 06/25 CEPHALEXIN 46521528120 No Longer Active Renée Adames APRN Active MEDROL (MARY) 4 MG TABS 6 pills on day 1, 5 pills on day 2, 4 pills on day 3, 4 pills on day 4, 2 pills on day 5, 1 pill on day 6 METHYLPREDNISOLONE 53714835775 No Longer Active Annita Mejia MD PhD Active ZITHROMAX Z-MARY 250 MG TABS 2 today and then 1 daily for 4 days AZITHROMYCIN 47756122181 No Longer Active Annita Mejia MD PhD Active GUAIFENESIN-CODEINE 100-10 MG/5ML SYRP 5ml every 4 to 6 hours as needed for cough GUAIFENESIN-CODEINE 91996896186 No Longer Active Annita Mejia MD PhD Active FLONASE 50 MCG/ACT SUSP 1 spray each nostril am and hs FLUTICASONE PROPIONATE 65321014092 No Longer Active Kendell Coronado MD Active MELOXICAM 15 MG TABS 1 po q day for pain with food MELOXICAM 90405405510 No Longer Active Kendell Coronado MD Active HYDROCODONE-ACETAMINOPHEN 5-325 MG TABS 1-2 q 4-6 hrs prn pain 20 tabs 07/04 HYDROCODONE-ACETAMINOPHEN 47570372394 No Longer Active Daniele Mcfadden DO Active PREDNISONE 20 MG TAB 1 tablet twice daily for 2 days, then 1 tablet once daily for 2 days PREDNISONE 33833624323 No Longer Active Daniele Mcfadden DO Active PREDNISONE 20 MG TAB 1 po bid 2 days, then daily for 2 days 12/27 PREDNISONE 19647294019 No Longer Active Alexander LOPEZ Active AZITHROMYCIN 250 MG TABS 2 po qd x 1 day, then 1 po qd x 4 days AZITHROMYCIN 22077461332 No Longer Active Daniele Mcfadden DO Active MUCINEX MAXIMUM STRENGTH NX17H-VSI 1 po qd GUAIFENESIN XR12H- TAB 18681774393 No Longer Active Daniele Mcfadden DO Active AZITHROMYCIN 250 MG TABS 2 po qd x 1 day, then 1 po qd x 4 days AZITHROMYCIN 05232962217 No Longer Active Margarito Kelley MD Active MUCINEX MAXIMUM STRENGTH PR38N-BIR 1 po qd MUCINEX MAXIMUM STRENGTH [id number]-VWF GUAIFENESIN CX61T-GGR Inactive PREDNISONE 20 MG TAB 1 po bid 2 days, then daily for 2 days 12/27 PREDNISONE 20 MG TAB 329674 PREDNISONE Inactive PREDNISONE 20 MG TAB 1 tablet twice daily for 2 days, then 1 tablet once daily for 2 days PREDNISONE 20 MG TAB 727148 PREDNISONE Inactive HYDROCODONE-ACETAMINOPHEN 5-325 MG TABS 1-2 q 4-6 hrs prn pain 20 tabs 07/04 HYDROCODONE-ACETAMINOPHEN 5-325 MG TABS 706190 HYDROCODONE- ACETAMINOPHEN Inactive MELOXICAM 15 MG TABS 1 po q day for pain with food MELOXICAM 15 MG TABS 680779 MELOXICAM Inactive FLONASE 50 MCG/ACT SUSP 1 spray each nostril am and hs FLONASE 50 MCG/ACT SUSP FLUTICASONE PROPIONATE Inactive GUAIFENESIN-CODEINE 100-10 MG/5ML SYRP 5ml every 4 to 6 hours as needed for cough GUAIFENESIN-CODEINE 100-10 MG/5ML SYRP 609284 GUAIFENESIN-CODEINE Inactive ZITHROMAX Z-MARY 250 MG TABS 2 today and then 1 daily for 4 days ZITHROMAX Z-MARY 250 MG TABS 2881989 AZITHROMYCIN Inactive CEFTIN 500 MG TAB 1 tablet by mouth twice daily for ten days. CEFTIN 500 MG TAB 091503 CEFUROXIME AXETIL Inactive PROAIR HFA 108 (90 BASE) MCG/ACT AERS 2 puffs every 4 hours as needed 2014 PROAIR HFA 108 (90 BASE) MCG/ACT AERS ALBUTEROL SULFATE Inactive E-Z SPACER ERIBERTO use with proair inhalier every 4 times as need. E-Z SPACER ERIBERTO SPACER/AERO-HOLDING CHAMBERS Inactive IRVING-D ALLERGY & CONGESTION [id number] 1 po bid IRVING-D ALLERGY & CONGESTION OW78O-LEM FEXOFENADINE-PSEUDOEPHEDRINE XR12H- TAB Inactive PREDNISONE 20 MG TAB 1 tablet twice daily for 2 days, then 1 tablet once daily for 2 days PREDNISONE 20 MG TAB 888779 PREDNISONE Inactive GUAIFENESIN 600 MG [id number]-DRF 1 twice a day as needed for congestion GUAIFENESIN 600 MG [id number]-PXJ GUAIFENESIN Inactive FLUTICASONE PROPIONATE 50 MCG/ACT SUSP 1 to 2 sprays each nostril daily 03/20 FLUTICASONE PROPIONATE 50 MCG/ACT SUSP 3415051 FLUTICASONE PROPIONATE Inactive MUCINEX D 60-600 MG [id number] 1 po BID PRN Congestion MUCINEX D 60-600 MG [id number] PSEUDOEPHEDRINE-GUAIFENESIN Inactive AZITHROMYCIN 250 MG TABS 2 po qd x 1 day, then 1 po qd x 4 days AZITHROMYCIN 250 MG TABS 9104774 AZITHROMYCIN Inactive AZITHROMYCIN 250 MG TABS 2 po qd x 1 day, then 1 po qd x 4 days AZITHROMYCIN 250 MG TABS 8916868 AZITHROMYCIN Inactive MEDROL (MARY) 4 MG TABS 6 pills on day 1, 5 pills on day 2, 4 pills on day 3, 4 pills on day 4, 2 pills on day 5, 1 pill on day 6 MEDROL (MARY) 4 MG TABS 045015 METHYLPREDNISOLONE Inactive CEPHALEXIN 500 MG CAPS 1 tablet by mouth three times daily for ten days 06/25 CEPHALEXIN 500 MG CAPS 689971 CEPHALEXIN Inactive PREDNISONE 20 MG TAB 2 tabs daily for 3 days, 1 tab daily for 3 days, 1/2 tab daily for 2 days PREDNISONE 20 MG TAB 459867 PREDNISONE Inactive CEFDINIR 300 MG CAPS 1 cap by mouth twice a day CEFDINIR 300 MG CAPS 082963 CEFDINIR Inactive PREDNISONE 20 MG TAB 2 tabs daily for 3 days, 1 tab daily for 3 days, 1/2 tab daily for 2 days PREDNISONE 20 MG TAB 669232 PREDNISONE Inactive PREDNISONE 20 MG TAB 2 tabs daily for 3 days, 1 tab daily for 3 days, 1/2 tab daily for 2 days PREDNISONE 20 MG TAB 078731 PREDNISONE Inactive CEFDINIR 300 MG CAPS by mouth twice a day CEFDINIR 300 MG CAPS 003518 CEFDINIR Inactive PREDNISONE 20 MG TAB 2 tabs daily for 3 days, 1 tab daily for 3 days, 1/2 tab daily for 2 days PREDNISONE 20 MG TAB 633217 PREDNISONE Inactive CEFDINIR 300 MG CAPS 1 po BID x 10 days CEFDINIR 300 MG CAPS 217728 CEFDINIR Inactive Immunizations Vaccine Administration Date Value Standard Description Human Papillomavirus vaccine (Gardasil) #2, (HPV #2) Gardasil [ CVX62] human papilloma virus vaccine, quadrivalent Seasonal influenza vaccine, injectable, containing preservative, for > 3 years old (Afluria, FluLaval, Fluzone, Fluvirin, Fluarix, Agriflu(>=18 yo)) Fluzone (>3 yrs.) [[id number]] Influenza, seasonal, injectable Human Papillomavirus Vaccine (Gardasil) #1 Given (HPV #1) Gardasil [CVX62] human papilloma virus vaccine, quadrivalent hepatitis A immunization #2 Havrix-Pedi hepatitis A vaccine, unspecified formulation Boostrix (Tetanus toxoid, reduced diphtheria toxoid and acellular pertussis vaccine, adsorbed), booster Boostrix [[id number]] tetanus toxoid, reduced diphtheria toxoid, and acellular [...] Range Description blood pressure, diastolic - 8462-4 65 mm[Hg] [...] Negative Encounters Code Encounter Date Provider Facility CPT-07564 Level 3 Est. Patient 08:43:59 OPHTHALMIC ASST Jessika Nunes [facility] CPT-99978 Level 3 Est. Patient 09:05:19 OPHTHALMIC ASST Griselda Horvath [facility] CPT-08691 Level 3 Est. Patient 15:45:46 CDT Griselda Horvath [facility] CPT-19459 Level 3 Est. Patient 14:15:52 CDT Daniele Mcfadden [facility] CPT-65554 Level 3 Est. Patient 13:57:19 OPHTHALMIC ASST Margarito Kelley MD [facility] CPT-46573 Level 3 Est. Patient 09:16:05 OPHTHALMIC ASST Margarito Kelley MD [facility] CPT-93896 Level 3 Est. Patient 15:37:06 OPHTHALMIC ASST Daniele Mcfadden [facility] CPT-23485 Level 3 Est. Patient 11:56:34 OPHTHALMIC ASST Renée Adames [facility] CPT-93488 Level 3 Est. Patient 12:19:42 CDT Daniele Mcfadden [facility] CPT-15231 Level 3 Est. Patient 11:08:45 CDT Annita Mejia MD [facility] CPT-51633 Level 3 Est. Patient 12:00:17 CDT Kendell Coronado MD [facility] CPT-06370 Level 3 Est. Patient 12:27:25 CDT Daniele Mcfadden [facility] CPT-88188 Level 3 Est. Patient 18:45:11 OPHTHALMIC ASST Daniele Mcfadden [facility] CPT-05092 Level 3 Est. Patient 10:12:24 OPHTHALMIC ASST Daniele Mcfadden [facility] CPT-50221 Level 3 Est. Patient 14:35:11 OPHTHALMIC ASST Daniele Mcfadden [facility] CPT-80959 Level 3 Est. Patient 14:11:04 CDT Daniele Mcfadden [facility] CPT-22196 Level 3 Est. Patient 10:52:13 CDT Alexander LOPEZ [facility] CPT-27072 Level 3 Est. Patient 11:01:08 OPHTHALMIC ASST Daniele Mcfadden [facility] CPT-36123 Level 3 Est. Patient 10:55:35 CDT Daniele Mcfadden [facility] CPT-38984 Level 3 Est. Patient 14:03:08 CDT Daniele Mcfadden [facility] CPT-82716 Level 3 Est. Patient 11:26:19 CDT Margarito Kelley MD [facility] CPT-42194 Level 2 Est. Patient 15:32:04 OPHTHALMIC ASST Daniele Mcfadden [facility] CPT-17053 Level 3 Est. Patient 16:01:26 OPHTHALMIC ASST Daniele Mcfadden [facility] CPT-73643 Level 3 Est. Patient 06:37:10 OPHTHALMIC ASST Daniele Mcfadden [facility] Procedures Code Procedure Name Date Entry Date Standard Description CPT-91970 Rapid Strep (Grp A) - LAB USE ONLY 13:06:06 CDT CPT-25060 Abd compl w upright 12:34:39 CDT CPT-74460 Immunization Single Admin 11:38:41 CDT CPT-03566 Fluzone Quadrivalent Intramuscular Suspension 0.5 ML 11: 38:41 CDT CPT-OV Office Visit 14:45:12 OPHTHALMIC ASST CPT-70037 [employer] all organs plus proximal aorta and distal IVC 2012 12:13:02 OPHTHALMIC ASST CPT-34164 Abd compl w upright 15:12:58 OPHTHALMIC ASST CPT-48243 Venipuncture Draw Fee 14:38:32 OPHTHALMIC ASST CPT-48487 Administration single or combination vaccine inc oral 17 :10:04 CDT CPT-28021 Gardasil 17:10:04 CDT CPT-30348 Venipuncture Draw Fee 16:07:54 OPHTHALMIC ASST CPT-76992 Administration 2+ single or combination vaccines inc oral 17:22:02 CDT CPT-80576 Administration single or combination vaccine inc oral 17 :22:02 CDT CPT-96195 Influenza split virus > age 3 17:22:02 CDT CPT-76811 Gardasil 17:22:02 CDT CPT-41911 Administration 2+ single or combination vaccines inc oral 14:38:31 CDT CPT-79307 Administration single or combination vaccine inc oral 14 :38:31 CDT CPT-08829 Meningococcal Conjugate Vacine (Menactra) 14:38:31 CDT CPT-57283 Gardasil 14:38:31 CDT
--- OUTSIDE RECORDS SUMMARY | 2018-02-15 06:28 | XMS REPORT | Clinical Summary ---
Author Author Admin, [employer] Organization [employer] Address Unknown Phone Unavailable Allergies, Adverse Reactions, [...] unspecified site Sinusitis 473.9 Active Griselda Horvath [employer] Unspecified sinusitis (chronic) Eustachian tube dysfunction, right 381.81 Active Margarito Kelley MD Dysfunction of Eustachian tube Pharyngitis-Acute 462 Active Daniele Mcfadden DO Acute pharyngitis URI 465.9 Active Griselda Horvath [employer] Acute upper respiratory infections of unspecified site Allergic rhinitis 477.9 Active Jessika Nunes [employer] Allergic rhinitis, cause unspecified Acute rhinosinusitis 461.9 Active Jessika Nunes [employer] Acute sinusitis, unspecified Fever 780.60 Active Griselda Horvath [employer] Fever, unspecified ALLERGIC RHINITIS ICD-477.9 Inactive Errol [...] for 2 days start tomorrow 07/31/16 PREDNISONE [id number] Active Jillina Frazell [employer] Active AZITHROMYCIN 250 MG TABS 2 po qd x 1 day, then 1 po qd x 4 days AZITHROMYCIN 43220043979 No Longer Active Jillina Frazell [employer] Active MUCINEX D 60-600 MG [id number] 1 po BID PRN Congestion PSEUDOEPHEDRINE-GUAIFENESIN 61724542951 No Longer Active Jessika Nunes [employer] Active CEFDINIR 300 MG CAPS 1 po BID x 10 days CEFDINIR 74762268205 No Longer Active Jillina Frazell [employer] Active PREDNISONE 20 MG TAB 2 tabs daily for 3 days, 1 tab daily for 3 days, 1/2 tab daily for 2 days PREDNISONE 62035400924 No Longer Active Jillina Frazell [employer] Active FLUTICASONE PROPIONATE 50 MCG/ACT SUSP 1 to 2 sprays each nostril daily 03/20 FLUTICASONE PROPIONATE 76114976882 No Longer Active Jillina Frazell [employer] Active GUAIFENESIN 600 MG [id number] 1 twice a day as needed for congestion GUAIFENESIN 20954985211 No Longer Active Jillina Frazell [employer] Active CEFDINIR 300 MG CAPS by mouth twice a day CEFDINIR 49934112855 No Longer Active Jillina Frazell [employer] Active PREDNISONE 20 MG TAB 1 tablet twice daily for 2 days, then 1 tablet once daily for 2 days PREDNISONE 39166212188 No Longer Active Jillina Frazell [employer] Active PREDNISONE 20 MG TAB 2 tabs daily for 3 days, 1 tab daily for 3 days, 1/2 tab daily for 2 days PREDNISONE 33794586728 No Longer Active Margarito Kelley MD Active IRVING-D ALLERGY & CONGESTION [id number] 1 po bid FEXOFENADINE-PSEUDOEPHEDRINE [id number] 97143280105 No Longer Active Margarito Kelley MD Active PREDNISONE 20 MG TAB 2 tabs daily for 3 days, 1 tab daily for 3 days, 1/2 tab daily for 2 days PREDNISONE 19265750180 No Longer Active Jillina Frazell [employer] Active CEFDINIR 300 MG CAPS 1 cap by mouth twice a day CEFDINIR 85680154416 No Longer Active Jillina Frazell [employer] Active E-Z SPACER ERIBERTO use with proair inhalier every 4 times as need. SPACER/AERO-HOLDING CHAMBERS 83099605828 No Longer Active Jillina Frazell [employer] Active PROAIR HFA 108 (90 BASE) MCG/ACT AERS 2 puffs every 4 hours as needed 2014 ALBUTEROL SULFATE 20400316018 No Longer Active Jillina Frazell [employer] Active CEFTIN 500 MG TAB 1 tablet by mouth twice daily for ten days. CEFUROXIME AXETIL 99301110717 No Longer Active Ezekielllina Frazell [employer] Active PREDNISONE 20 MG TAB 2 tabs daily for 3 days, 1 tab daily for 3 days, 1/2 tab daily for 2 days PREDNISONE 76509711560 No Longer Active Margarito Kelley MD Active CEPHALEXIN 500 MG CAPS 1 tablet by mouth three times daily for ten days 06/25 CEPHALEXIN 33186842991 No Longer Active Renée Adames APRN Active MEDROL (MARY) 4 MG TABS 6 pills on day 1, 5 pills on day 2, 4 pills on day 3, 4 pills on day 4, 2 pills on day 5, 1 pill on day 6 METHYLPREDNISOLONE 98247921263 No Longer Active Annita Mejia MD PhD Active ZITHROMAX Z-MARY 250 MG TABS 2 today and then 1 daily for 4 days AZITHROMYCIN 24865946412 No Longer Active Annita Mejia MD PhD Active GUAIFENESIN-CODEINE 100-10 MG/5ML SYRP 5ml every 4 to 6 hours as needed for cough GUAIFENESIN-CODEINE 98060599016 No Longer Active Annita Mejia MD PhD Active FLONASE 50 MCG/ACT SUSP 1 spray each nostril am and hs FLUTICASONE PROPIONATE 03122434179 No Longer Active Kendell Coronado MD Active MELOXICAM 15 MG TABS 1 po q day for pain with food MELOXICAM 89755832345 No Longer Active Kendell Coronado MD Active HYDROCODONE-ACETAMINOPHEN 5-325 MG TABS 1-2 q 4-6 hrs prn pain 20 tabs 07/04 HYDROCODONE-ACETAMINOPHEN 51365085028 No Longer Active Daniele Mcfadden DO Active PREDNISONE 20 MG TAB 1 tablet twice daily for 2 days, then 1 tablet once daily for 2 days PREDNISONE 95666217093 No Longer Active Daniele Mcfadden DO Active PREDNISONE 20 MG TAB 1 po bid 2 days, then daily for 2 days 12/27 PREDNISONE 10805461603 No Longer Active Alexander LOPEZ Active AZITHROMYCIN 250 MG TABS 2 po qd x 1 day, then 1 po qd x 4 days AZITHROMYCIN 68411692143 No Longer Active Daniele Mcfadden DO Active MUCINEX MAXIMUM STRENGTH [id number] 1 po qd GUAIFENESIN XR12H- TAB 44338863754 No Longer Active Daniele Mcfadden DO Active AZITHROMYCIN 250 MG TABS 2 po qd x 1 day, then 1 po qd x 4 days AZITHROMYCIN 44527861132 No Longer Active Margarito Kelley MD Active MUCINEX MAXIMUM STRENGTH [id number] 1 po qd MUCINEX MAXIMUM STRENGTH [id number] GUAIFENESIN [id number] Inactive PREDNISONE 20 MG TAB 1 po bid 2 days, then daily for 2 days 12/27 PREDNISONE 20 MG TAB 728241 PREDNISONE Inactive PREDNISONE 20 MG TAB 1 tablet twice daily for 2 days, then 1 tablet once daily for 2 days PREDNISONE 20 MG TAB 407078 PREDNISONE Inactive HYDROCODONE-ACETAMINOPHEN 5-325 MG TABS 1-2 q 4-6 hrs prn pain 20 tabs 07/04 HYDROCODONE-ACETAMINOPHEN 5-325 MG TABS 871500 HYDROCODONE- ACETAMINOPHEN Inactive MELOXICAM 15 MG TABS 1 po q day for pain with food MELOXICAM 15 MG TABS 816631 MELOXICAM Inactive FLONASE 50 MCG/ACT SUSP 1 spray each nostril am and hs FLONASE 50 MCG/ACT SUSP FLUTICASONE PROPIONATE Inactive GUAIFENESIN-CODEINE 100-10 MG/5ML SYRP 5ml every 4 to 6 hours as needed for cough GUAIFENESIN-CODEINE 100-10 MG/5ML SYRP 714162 GUAIFENESIN-CODEINE Inactive ZITHROMAX Z-MARY 250 MG TABS 2 today and then 1 daily for 4 days ZITHROMAX Z-MARY 250 MG TABS 6248791 AZITHROMYCIN Inactive CEFTIN 500 MG TAB 1 tablet by mouth twice daily for ten days. CEFTIN 500 MG TAB 501906 CEFUROXIME AXETIL Inactive PROAIR HFA 108 (90 BASE) MCG/ACT AERS 2 puffs every 4 hours as needed 2014 PROAIR HFA 108 (90 BASE) MCG/ACT AERS ALBUTEROL SULFATE Inactive E-Z SPACER ERIBERTO use with proair inhalier every 4 times as need. E-Z SPACER ERIBERTO SPACER/AERO-HOLDING CHAMBERS Inactive IRVING-D ALLERGY & CONGESTION [id number] 1 po bid IRVING-D ALLERGY & CONGESTION [id number] FEXOFENADINE-PSEUDOEPHEDRINE XR12H- TAB Inactive PREDNISONE 20 MG TAB 1 tablet twice daily for 2 days, then 1 tablet once daily for 2 days PREDNISONE 20 MG TAB 912551 PREDNISONE Inactive GUAIFENESIN 600 MG [id number]-SEB 1 twice a day as needed for congestion GUAIFENESIN 600 MG [id number]-XNI GUAIFENESIN Inactive FLUTICASONE PROPIONATE 50 MCG/ACT SUSP 1 to 2 sprays each nostril daily 03/20 FLUTICASONE PROPIONATE 50 MCG/ACT SUSP 1823487 FLUTICASONE PROPIONATE Inactive MUCINEX D 60-600 MG IF32C-LXL 1 po BID PRN Congestion MUCINEX D 60-600 MG [id number] PSEUDOEPHEDRINE-GUAIFENESIN Inactive AZITHROMYCIN 250 MG TABS 2 po qd x 1 day, then 1 po qd x 4 days AZITHROMYCIN 250 MG TABS 4920221 AZITHROMYCIN Inactive AZITHROMYCIN 250 MG TABS 2 po qd x 1 day, then 1 po qd x 4 days AZITHROMYCIN 250 MG TABS 9700663 AZITHROMYCIN Inactive MEDROL (MARY) 4 MG TABS 6 pills on day 1, 5 pills on day 2, 4 pills on day 3, 4 pills on day 4, 2 pills on day 5, 1 pill on day 6 MEDROL (MARY) 4 MG TABS 320270 METHYLPREDNISOLONE Inactive CEPHALEXIN 500 MG CAPS 1 tablet by mouth three times daily for ten days 06/25 CEPHALEXIN 500 MG CAPS 331947 CEPHALEXIN Inactive PREDNISONE 20 MG TAB 2 tabs daily for 3 days, 1 tab daily for 3 days, 1/2 tab daily for 2 days PREDNISONE 20 MG TAB 416209 PREDNISONE Inactive CEFDINIR 300 MG CAPS 1 cap by mouth twice a day CEFDINIR 300 MG CAPS 721217 CEFDINIR Inactive PREDNISONE 20 MG TAB 2 tabs daily for 3 days, 1 tab daily for 3 days, 1/2 tab daily for 2 days PREDNISONE 20 MG TAB 174000 PREDNISONE Inactive PREDNISONE 20 MG TAB 2 tabs daily for 3 days, 1 tab daily for 3 days, 1/2 tab daily for 2 days PREDNISONE 20 MG TAB 875683 PREDNISONE Inactive CEFDINIR 300 MG CAPS by mouth twice a day CEFDINIR 300 MG CAPS 20021026 CEFDINIR Inactive PREDNISONE 20 MG TAB 2 tabs daily for 3 days, 1 tab daily for 3 days, 1/2 tab daily for 2 days PREDNISONE 20 MG TAB 029698 PREDNISONE Inactive CEFDINIR 300 MG CAPS 1 po BID x 10 days CEFDINIR 300 MG CAPS 20021026 CEFDINIR Inactive AZITHROMYCIN 250 MG TABS 2 po qd x 1 day, then 1 po qd x 4 days AZITHROMYCIN 250 MG TABS 2327114 AZITHROMYCIN Inactive Immunizations Vaccine Administration Date Value Standard Description Human Papillomavirus vaccine (Gardasil) #2, (HPV #2) Gardasil [ CVX62] human papilloma virus vaccine, quadrivalent Seasonal influenza vaccine, injectable, containing preservative, for > 3 years old (Afluria, FluLaval, Fluzone, Fluvirin, Fluarix, Agriflu(>=18 yo)) Fluzone (>3 yrs.) [IUD349] Influenza, seasonal, injectable Human Papillomavirus Vaccine (Gardasil) #1 Given (HPV #1) Gardasil [CVX62] human papilloma virus vaccine, quadrivalent hepatitis A immunization #2 Havrix-Pedi hepatitis A vaccine, unspecified formulation Boostrix (Tetanus toxoid, reduced diphtheria toxoid and acellular pertussis vaccine, adsorbed), booster Boostrix [SXY802] tetanus toxoid, reduced diphtheria toxoid, and acellular [...] Negative;Positive Encounters Code Encounter Date Provider Facility CPT-51440 Level 3 Est. Patient 10:49:47 BIOINFORMATICIAN Griselda Horvath [facility] CPT-46760 Level 3 Est. Patient 08:43:59 BIOINFORMATICIAN Jessika Nunes [facility] CPT-06099 Level 3 Est. Patient 09:05:19 BIOINFORMATICIAN Griselda Horvath [facility] CPT-60400 Level 3 Est. Patient 15:45:46 CDT Griselda Horvath [facility] CPT-69638 Level 3 Est. Patient 14:15:52 CDT Daniele Mcfadden DO [facility] CPT-59406 Level 3 Est. Patient 13:57:19 BIOINFORMATICIAN Margarito Kelley MD [facility] CPT-60967 Level 3 Est. Patient 09:16:05 BIOINFORMATICIAN Margarito Kelley MD [facility] CPT-33785 Level 3 Est. Patient 15:37:06 BIOINFORMATICIAN Daniele Mcfadden [facility] CPT-51490 Level 3 Est. Patient 11:56:34 BIOINFORMATICIAN Renée Velray [facility] CPT-25482 Level 3 Est. Patient 12:19:42 CDT Daniele Mcfadden [facility] CPT-97285 Level 3 Est. Patient 11:08:45 CDT Annita Mejia MD [facility] CPT-67576 Level 3 Est. Patient 12:00:17 CDT Kendell Coronado MD [facility] CPT-74403 Level 3 Est. Patient 12:27:25 CDT Daniele Mcfadden [facility] CPT-30651 Level 3 Est. Patient 18:45:11 BIOINFORMATICIAN Daniele Mcfadden [facility] CPT-70354 Level 3 Est. Patient 10:12:24 BIOINFORMATICIAN Daniele Mcfadden [facility] CPT-29490 Level 3 Est. Patient 14:35:11 BIOINFORMATICIAN Daniele Mcfadden [facility] CPT-41482 Level 3 Est. Patient 14:11:04 CDT Daniele Mcfadden [facility] CPT-04773 Level 3 Est. Patient 10:52:13 CDT Alexander LOPEZ [facility] CPT-54754 Level 3 Est. Patient 11:01:08 BIOINFORMATICIAN Daniele Mcfadden [facility] CPT-37416 Level 3 Est. Patient 10:55:35 CDT Daniele Mcfadden [facility] CPT-71739 Level 3 Est. Patient 14:03:08 CDT Daniele Mcfadden [facility] CPT-28274 Level 3 Est. Patient 11:26:19 CDT Margarito Kelley MD [facility] CPT-14056 Level 2 Est. Patient 15:32:04 BIOINFORMATICIAN Daniele Salter Bogdan [facility] CPT-22986 Level 3 Est. Patient 16:01:26 BIOINFORMATICIAN Daniele Mcfadden [facility] CPT-84381 Level 3 Est. Patient 06:37:10 BIOINFORMATICIAN Daniele Mcfadden [facility] Procedures Code Procedure Name Date Entry Date Standard Description CPT-49047 Throat Culture - LAB USE ONLY 12:15:45 BIOINFORMATICIAN CPT-95748 Shani Flu A/B - LAB USE ONLY 12:15:45 BIOINFORMATICIAN CPT-79379 Rapid Strep (Reflex throat) - LAB USE ONLY 12:15:45 BIOINFORMATICIAN CPT-37901 Rapid Strep (Grp A) - LAB USE ONLY 13:06:06 CDT CPT-07005 Abd compl w upright 12:34:39 CDT CPT-82350 Immunization Single Admin 11:38:41 CDT CPT-91446 Fluzone Quadrivalent Intramuscular Suspension 0.5 ML 11: 38:41 CDT CPT-OV Office Visit 14:45:12 BIOINFORMATICIAN CPT-43186 [employer] all organs plus proximal aorta and distal IVC 2012 12:13:02 BIOINFORMATICIAN CPT-98141 Abd compl w upright 15:12:58 BIOINFORMATICIAN CPT-25776 Venipuncture Draw Fee 14:38:32 BIOINFORMATICIAN CPT-46271 Administration single or combination vaccine inc oral 17 :10:04 CDT CPT-92344 Gardasil 17:10:04 CDT CPT-77281 Venipuncture Draw Fee 16:07:54 BIOINFORMATICIAN CPT-00056 Administration 2+ single or combination vaccines inc oral 17:22:02 CDT CPT-12391 Administration single or combination vaccine inc oral 17 :22:02 CDT CPT-30322 Influenza split virus > age 3 17:22:02 CDT CPT-91461 Gardasil 17:22:02 CDT CPT-37413 Administration 2+ single or combination vaccines inc oral 14:38:31 CDT CPT-02454 Administration single or combination vaccine inc oral 14 :38:31 CDT CPT-68777 Meningococcal Conjugate Vacine (Menactra) 14:38:31 CDT CPT-83211 Gardasil 14:38:31 CDT
--- OUTSIDE RECORDS SUMMARY | 2018-02-15 06:29 | XMS REPORT | Clinical Summary ---
Author Author Admin, OLEG Organization [facility] Address Unknown Phone Unavailable Allergies, Adverse Reactions, [...] Katie Brandan BOWMAN Sinusitis ICD-473.9 Inactive Katie Brandan BOWMAN 2017 Eustachian tube dysfunction, right ICD-381.81 Inactive Katie Brandan BOWMAN Pharyngitis-Acute ICD-462 Inactive Katie Gipson PRESS SET UP PERSON URI ICD-465.9 Inactive Katie Gipson COLBY Allergic rhinitis ICD-477.9 Inactive Katie Gipson PRESS SET UP PERSON Acute rhinosinusitis ICD-461.9 Inactive Katie Gipson PRESS SET UP PERSON Fever ICD-780.60 Inactive Katie Gipsonfredrick [facility]KSN Immunization due ICD-V15.83 Inactive Katie Gipson PRESS SET UP PERSON Medication List Medication Instructions Start Date Stop Date Generic Name NDC Status Provider Patient Instruction PREDNISONE 20 MG ORAL TABLET two tabs by mouth today, then one tab by mouth days two and three PREDNISONE [id number] Active Daniele Mcfadden DO Active AZITHROMYCIN 250 MG ORAL TABLET 2 po qd x 1 day, then 1 po qd x 4 days 07/24 AZITHROMYCIN 55909539677 Active Daniele Mcfadden DO Active IRVING-D ALLERGY & CONGESTION 60-120 MG ORAL TABLET EXTENDED RELEASE 12 HOUR 1 tablet twice daily as needed for congestion/allergies FEXOFENADINE-PSEUDOEPHEDRINE 89880477394 Active Holly Sharma Active PREDNISONE 20 MG ORAL TABLET 2 tabs daily for 3 days, 1 tab daily for 3 days, 1/2 tab daily for 2 days start tomorrow 07/31/16 PREDNISONE 66730007865 No Longer Active Jillina Alexandru JOHNSON Active AZITHROMYCIN 250 MG ORAL TABLET 2 po qd x 1 day, then 1 po qd x 4 days 08/30 AZITHROMYCIN 67610161453 No Longer Active Ezekielllina Alexandru JOHNSON Active MUCINEX D 60-600 MG ORAL TABLET EXTENDED RELEASE 12 HOUR 1 po BID PRN Congestion PSEUDOEPHEDRINE-GUAIFENESIN 57318467712 No Longer Active Jessika Nunes APRN Active CEFDINIR 300 MG ORAL CAPSULE 1 po BID x 10 days CEFDINIR 14282952020 No Longer Active Jillina Alexandru JOHNSON Active PREDNISONE 20 MG ORAL TABLET 2 tabs daily for 3 days, 1 tab daily for 3 days, 1/2 tab daily for 2 days PREDNISONE 41726937643 No Longer Active Jillina Frazell [employer]X RESEARCH ASSOCIATE Active FLUTICASONE PROPIONATE 50 MCG/ACT NASAL SUSPENSION 1 to 2 sprays each nostril daily FLUTICASONE PROPIONATE 19012083095 No Longer Active Jillina Frazell UX RESEARCH ASSOCIATE Active GUAIFENESIN ER 600 MG ORAL TABLET EXTENDED RELEASE 12 HOUR 1 twice a day as needed for congestion GUAIFENESIN 03164479675 No Longer Active Jillina Frazell UX RESEARCH ASSOCIATE Active CEFDINIR 300 MG ORAL CAPSULE by mouth twice a day CEFDINIR 37636897417 No Longer Active Jillina Frazell UX RESEARCH ASSOCIATE Active PREDNISONE 20 MG ORAL TABLET 1 tablet twice daily for 2 days, then 1 tablet once daily for 2 days PREDNISONE 12546387613 No Longer Active Jillina Frazell UX RESEARCH ASSOCIATE Active PREDNISONE 20 MG ORAL TABLET 2 tabs daily for 3 days, 1 tab daily for 3 days, 1/2 tab daily for 2 days PREDNISONE 74532057398 No Longer Active Margarito Kelley MD Active IRVING-D ALLERGY & CONGESTION TABLET EXTENDED RELEASE 12 HOUR 1 po bid 05/26 FEXOFENADINE-PSEUDOEPHEDRINE [id number] 77606644005 No Longer Active Margarito Kelley MD Active PREDNISONE 20 MG ORAL TABLET 2 tabs daily for 3 days, 1 tab daily for 3 days, 1/2 tab daily for 2 days PREDNISONE 81803662091 No Longer Active Ezekielllina Framarkl UX RESEARCH ASSOCIATE Active CEFDINIR 300 MG ORAL CAPSULE 1 cap by mouth twice a day CEFDINIR 42007669196 No Longer Active Jillina Frazell UX RESEARCH ASSOCIATE Active E-Z SPACER DEVICE use with proair inhalier every 4 times as need. SPACER/AERO-HOLDING CHAMBERS 37936385278 No Longer Active Jillina Frazell UX RESEARCH ASSOCIATE Active PROAIR HFA 108 (90 Base) MCG/ACT INHALATION AEROSOL SOLUTION 2 puffs every 4 hours as needed ALBUTEROL SULFATE 55054730999 No Longer Active Ezekielllina Jiml UX RESEARCH ASSOCIATE Active CEFTIN 500 MG ORAL TABLET 1 tablet by mouth twice daily for ten days. CEFUROXIME AXETIL 24619487656 No Longer Active Ezekielllina Alexandru ONTIVEROSN Active PREDNISONE 20 MG ORAL TABLET 2 tabs daily for 3 days, 1 tab daily for 3 days, 1/2 tab daily for 2 days PREDNISONE 56293727726 No Longer Active Margarito Kelley MD Active CEPHALEXIN 500 MG ORAL CAPSULE 1 tablet by mouth three times daily for ten days CEPHALEXIN 41885993533 No Longer Active Renée Adames ALEX Active MEDROL 4 MG ORAL TABLET THERAPY PACK 6 pills on day 1, 5 pills on day 2, 4 pills on day 3, 4 pills on day 4, 2 pills on day 5, 1 pill on day 6 METHYLPREDNISOLONE 44217397356 No Longer Active Annita Mejia MD PhD Active ZITHROMAX Z-MARY 250 MG ORAL TABLET 2 today and then 1 daily for 4 days 03/11 AZITHROMYCIN 03909364184 No Longer Active Annita Mejia MD PhD Active GUAIFENESIN-CODEINE 100-10 MG/5ML ORAL SYRUP 5ml every 4 to 6 hours as needed for cough GUAIFENESIN-CODEINE 86226968251 No Longer Active Annita Mejia MD PhD Active FLONASE 50 MCG/ACT NASAL SUSPENSION 1 spray each nostril am and hs FLUTICASONE PROPIONATE 68311274516 No Longer Active Kendell Coronado MD Active MELOXICAM 15 MG ORAL TABLET 1 po q day for pain with food MELOXICAM 28095357112 No Longer Active Kendell Coronado MD Active HYDROCODONE-ACETAMINOPHEN 5-325 MG ORAL TABLET 1-2 q 4-6 hrs prn pain 20 tabs HYDROCODONE-ACETAMINOPHEN 14405047037 No Longer Active Daniele Mcfadden DO Active PREDNISONE 20 MG ORAL TABLET 1 tablet twice daily for 2 days, then 1 tablet once daily for 2 days PREDNISONE 00225404164 No Longer Active Daniele Mcfadden DO Active PREDNISONE 20 MG ORAL TABLET 1 po bid 2 days, then daily for 2 days PREDNISONE 10638150414 No Longer Active Alexander LOPEZ Active AZITHROMYCIN 250 MG ORAL TABLET 2 po qd x 1 day, then 1 po qd x 4 days 08/05 AZITHROMYCIN 29414699382 No Longer Active Daniele Mcfadden DO Active MUCINEX MAXIMUM STRENGTH TABLET EXTENDED RELEASE 12 HOUR 1 po qd GUAIFENESIN [id number] 13821573150 No Longer Active Daniele Mcfadden DO Active AZITHROMYCIN 250 MG ORAL TABLET 2 po qd x 1 day, then 1 po qd x 4 days 11/26 AZITHROMYCIN 84892025818 No Longer Active Margarito Kelley MD Active MUCINEX MAXIMUM STRENGTH TABLET EXTENDED RELEASE 12 HOUR 1 po qd MUCINEX MAXIMUM STRENGTH TABLET EXTENDED RELEASE 12 HOUR GUAIFENESIN [id number] Inactive PREDNISONE 20 MG ORAL TABLET 1 po bid 2 days, then daily for 2 days PREDNISONE 20 MG ORAL TABLET 219548 PREDNISONE Inactive PREDNISONE 20 MG ORAL TABLET 1 tablet twice daily for 2 days, then 1 tablet once daily for 2 days PREDNISONE 20 MG ORAL TABLET 135829 PREDNISONE Inactive HYDROCODONE-ACETAMINOPHEN 5-325 MG ORAL TABLET 1-2 q 4-6 hrs prn pain 20 tabs HYDROCODONE-ACETAMINOPHEN 5-325 MG ORAL TABLET 691585 HYDROCODONE-ACETAMINOPHEN Inactive MELOXICAM 15 MG ORAL TABLET 1 po q day for pain with food MELOXICAM 15 MG ORAL TABLET 247501 MELOXICAM Inactive FLONASE 50 MCG/ACT NASAL SUSPENSION 1 spray each nostril am and hs FLONASE 50 MCG/ACT NASAL SUSPENSION 5946028 FLUTICASONE PROPIONATE Inactive GUAIFENESIN-CODEINE 100-10 MG/5ML ORAL SYRUP 5ml every 4 to 6 hours as needed for cough GUAIFENESIN-CODEINE 100-10 MG/5ML ORAL SYRUP 042405 GUAIFENESIN-CODEINE Inactive ZITHROMAX Z-MARY 250 MG ORAL TABLET 2 today and then 1 daily for 4 days 03/11 ZITHROMAX Z-MARY 250 MG ORAL TABLET 748934 AZITHROMYCIN Inactive CEFTIN 500 MG ORAL TABLET 1 tablet by mouth twice daily for ten days. CEFTIN 500 MG ORAL TABLET 063305 CEFUROXIME AXETIL Inactive PROAIR HFA 108 (90 [...] CONGESTION TABLET EXTENDED RELEASE 12 HOUR FEXOFENADINE-PSEUDOEPHEDRINE [id number] Inactive PREDNISONE 20 MG ORAL TABLET 1 tablet twice daily for 2 days, then 1 tablet once daily for 2 days PREDNISONE 20 MG ORAL TABLET 820951 PREDNISONE Inactive GUAIFENESIN ER 600 MG ORAL TABLET EXTENDED RELEASE 12 HOUR 1 twice a day as needed for congestion GUAIFENESIN ER 600 MG ORAL TABLET EXTENDED RELEASE 12 HOUR GUAIFENESIN Inactive FLUTICASONE PROPIONATE 50 MCG/ACT NASAL SUSPENSION 1 to 2 sprays each nostril daily FLUTICASONE PROPIONATE 50 MCG/ACT NASAL SUSPENSION 5151174 FLUTICASONE PROPIONATE Inactive MUCINEX D 60-600 MG ORAL TABLET EXTENDED RELEASE 12 HOUR 1 po BID PRN Congestion MUCINEX D 60-600 MG ORAL TABLET EXTENDED RELEASE 12 HOUR PSEUDOEPHEDRINE-GUAIFENESIN Inactive AZITHROMYCIN 250 MG ORAL TABLET 2 po qd x 1 day, then 1 po qd x 4 days 11/26 AZITHROMYCIN 250 MG ORAL TABLET 345292 AZITHROMYCIN Inactive AZITHROMYCIN 250 MG ORAL TABLET 2 po qd x 1 day, then 1 po qd x 4 days 08/05 AZITHROMYCIN 250 MG ORAL TABLET 774133 AZITHROMYCIN Inactive MEDROL 4 MG ORAL TABLET THERAPY PACK 6 pills on day 1, 5 pills on day 2, 4 pills on day 3, 4 pills on day 4, 2 pills on day 5, 1 pill on day 6 MEDROL 4 MG ORAL TABLET THERAPY PACK 928946 METHYLPREDNISOLONE Inactive CEPHALEXIN 500 MG ORAL CAPSULE 1 tablet by mouth three times daily for ten days CEPHALEXIN 500 MG ORAL CAPSULE 373727 CEPHALEXIN Inactive PREDNISONE 20 MG ORAL TABLET 2 tabs daily for 3 days, 1 tab daily for 3 days, 1/2 tab daily for 2 days PREDNISONE 20 MG ORAL TABLET 991449 PREDNISONE Inactive CEFDINIR 300 MG ORAL CAPSULE 1 cap by mouth twice a day CEFDINIR 300 MG ORAL CAPSULE 226494 CEFDINIR Inactive PREDNISONE 20 MG ORAL TABLET 2 tabs daily for 3 days, 1 tab daily for 3 days, 1/2 tab daily for 2 days PREDNISONE 20 MG ORAL TABLET 473916 PREDNISONE Inactive PREDNISONE 20 MG ORAL TABLET 2 tabs daily for 3 days, 1 tab daily for 3 days, 1/2 tab daily for 2 days PREDNISONE 20 MG ORAL TABLET 120088 PREDNISONE Inactive CEFDINIR 300 MG ORAL CAPSULE by mouth twice a day CEFDINIR 300 MG ORAL CAPSULE 183940 CEFDINIR Inactive PREDNISONE 20 MG ORAL TABLET 2 tabs daily for 3 days, 1 tab daily for 3 days, 1/2 tab daily for 2 days PREDNISONE 20 MG ORAL TABLET 511998 PREDNISONE Inactive CEFDINIR 300 MG ORAL CAPSULE 1 po BID x 10 days CEFDINIR 300 MG ORAL CAPSULE 671459 CEFDINIR Inactive AZITHROMYCIN 250 MG ORAL TABLET 2 po qd x 1 day, then 1 po qd x 4 days 08/30 AZITHROMYCIN 250 MG ORAL TABLET 674183 AZITHROMYCIN Inactive PREDNISONE 20 MG ORAL TABLET 2 tabs daily for 3 days, 1 tab daily for 3 days, 1/2 tab daily for 2 days start tomorrow 07/31/16 PREDNISONE 20 MG ORAL TABLET 021192 PREDNISONE Inactive Immunizations Vaccine Administration Date Value Standard Description Human Papillomavirus vaccine (Gardasil) #2, (HPV #2) Gardasil [ CVX62] human papilloma virus vaccine, quadrivalent Seasonal influenza vaccine, injectable, containing preservative, for > 3 years old (Afluria, FluLaval, Fluzone, Fluvirin, Fluarix, Agriflu(>=18 yo)) Fluzone (>3 yrs.) [CTV616] Influenza, seasonal, injectable Human Papillomavirus Vaccine (Gardasil) #1 Given (HPV #1) Gardasil [CVX62] human papilloma virus vaccine, quadrivalent hepatitis A immunization #2 Havrix-Pedi hepatitis A vaccine, unspecified formulation Boostrix (Tetanus toxoid, reduced diphtheria toxoid and acellular pertussis vaccine, adsorbed), booster Boostrix [[id number]] tetanus toxoid, reduced diphtheria toxoid, and acellular [...] Value Unit Range Description blood pressure, diastolic 65 mm[Hg] BP herndon [...] Negative;Positive Encounters Code Encounter Date Provider Facility CPT-35376 Level 3 Est. Patient 17:42:49 [facility] 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 Patient 08:43:59 [employer]PERVISOR [employer] Jessika Nunes [facility] CPT-95741 Level 3 Est. Patient 09:05:19 SUPERVISOR [employer] Griselda Horvath [facility] CPT-04856 Level 3 Est. Patient 15:45:46 CDT Griselda Horvath [facility] CPT-57230 Level 3 Est. Patient 14:15:52 CDT Daniele W Bogdan [facility] CPT-42433 Level 3 Est. Patient 13:57:19 [employer]PER[employer] Margarito Kelley MD [facility] CPT-72699 Level 3 Est. Patient 09:16:05 SUPERVISOR [employer] Margarito Kelley MD [facility] CPT-57303 Level 3 Est. Patient 15:37:06 SUPERVISOR [employer]X Daniele Mcfadden [facility] CPT-24394 Level 3 Est. Patient 11:56:34 [employer]PER[employer] Renée Adames APRN [facility] CPT-02693 Level 3 Est. Patient 12:19:42 CDT Daniele Mcfadden [facility] CPT-82356 Level 3 Est. Patient 11:08:45 CDT Annita Mejia MD [facility] CPT-61169 Level 3 Est. Patient 12:00:17 CDT Kendell Coronado MD [facility] CPT-82469 Level 3 Est. Patient 12:27:25 CDT Daniele Mcfadden [facility] CPT-12813 Level 3 Est. Patient 18:45:11 [employer]PERVISOR [employer] Daniele Mcfadden [facility] CPT-31368 Level 3 Est. Patient 10:12:24 SUPERVISOR [employer]X Daniele Mcfadden [facility] CPT-02755 Level 3 Est. Patient 14:35:11 SUPERVISOR [employer]RIX Daniele Mcfadden [facility] CPT-61056 Level 3 Est. Patient 14:11:04 CDT Daniele Mcfadden [facility] CPT-88259 Level 3 Est. Patient 10:52:13 CDT Alexander LOPEZ [facility] CPT-98912 Level 3 Est. Patient 11:01:08 SUPERVISOR [employer]X Daniele Mcfadden [facility] CPT-12675 Level 3 Est. Patient 10:55:35 CDT Daniele Mcfadden [facility] CPT-58348 Level 3 Est. Patient 14:03:08 CDT Daniele Mcfadden [facility] CPT-17444 Level 3 Est. Patient 11:26:19 CDT Margarito Kelley MD [facility] CPT-74371 Level 2 Est. Patient 15:32:04 SUPERVISOR [employer]X Daniele Mcfadden [facility] CPT-44145 Level 3 Est. Patient 16:01:26 SUPERVISOR [employer]X Daniele Mcfadden [facility] CPT-34086 Level 3 Est. Patient 06:37:10 SUPERVISOR [employer]X Daniele Mcfadden [facility] Procedures Code Procedure Name Date Entry Date Standard Description CPT-67044 Addl Vx - Ix admin via ID IM or jet injects without counseling by physician 14:37:19 CDT CPT-23313 Meningococcal B, recombinant vaccine 14:37:19 CDT 03/05 CPT-82225 First Vx - Ix admin via ID IM or jet injects without counseling by physician 14:37:19 CDT CPT-42846 Menveo Intramuscular Solution Reconstituted 14:37:19 CDT CPT-69381 Meningococcal Conjugate Vacine (Menactra) 11:20:04 CDT CPT-28097 Throat Culture - LAB USE ONLY 12:15:45 SUPERVISOR [employer] CPT-59348 Shani Flu A/B - LAB USE ONLY 12:15:45 SUPERVISOR [employer] CPT-66622 Rapid Strep (Reflex throat) - LAB USE ONLY 12:15:45 SUPERVISOR [employer] CPT-97985 Rapid Strep (Grp A) - LAB USE ONLY 13:06:06 CDT CPT-25974 Abd compl w upright 12:34:39 CDT CPT-24455 Immunization Single Admin 11:38:41 CDT CPT-00649 Fluzone Quadrivalent Intramuscular Suspension 0.5 ML 11: 38:41 CDT CPT-OV Office Visit 14:45:12 SUPERVISOR [employer]X CPT-73698 [employer]d [employer] inc all organs plus proximal aorta and distal IVC 2012 12:13:02 SUPERVISOR [employer]X CPT-66545 Abd compl w upright 15:12:58 SUPERVISOR [employer] CPT-52729 Venipuncture Draw Fee 14:38:32 SUPERVISOR [employer] CPT-80810 Administration single or combination vaccine inc oral 17 :10:04 CDT CPT-75291 Gardasil 17:10:04 CDT CPT-50363 Venipuncture Draw Fee 16:07:54 SUPERVISOR [employer] CPT-98433 Administration 2+ single or combination vaccines inc oral 17:22:02 CDT CPT-48134 Administration single or combination vaccine inc oral 17 :22:02 CDT CPT-77397 Influenza split virus > age 3 17:22:02 CDT CPT-23830 Gardasil 17:22:02 CDT CPT-00017 Administration 2+ single or combination vaccines inc oral 14:38:31 CDT CPT-52614 Administration single or combination vaccine inc oral 14 :38:31 CDT CPT-92189 Meningococcal Conjugate Vacine (Menactra) 14:38:31 CDT CPT-50776 Gardasil 14:38:31 CDT
[2018-02-15 06:30] VITALS: BP 118/84
--- OUTSIDE RECORDS SUMMARY | 2018-02-15 06:30 | XMS REPORT | Clinical Summary ---
Author Author Admin, OLEG Organization [facility] Address Unknown Phone Unavailable Allergies, Adverse Reactions, [...] unspecified site Sinusitis 473.9 Active Griselda Horvath OUTREACH ASSISTANT Unspecified sinusitis (chronic) Eustachian tube dysfunction, right 381.81 Active Margarito Kelley MD Dysfunction of Eustachian tube Pharyngitis-Acute 462 Active Daniele Mcfadden DO Acute pharyngitis ALLERGIC RHINITIS ICD-477.9 Inactive Errol Pack MD CONCUSSION WITH LOC OF 30 MINUTES OR LESS ICD-850.11 Inactive Margarito Kelley MD BRONCHITIS, ACUTE ICD-466.0 Inactive Errol Pack MD COSTOCHONDRITIS, ACUTE ICD-733.6 Inactive Errol Pack MD KNEE PAIN, RIGHT ICD-719.46 Inactive Errol Pcak MD ATHLETIC PHYSICAL, NORMAL ICD-V70.3 Inactive Errol [...] Provider Patient Instruction PREDNISONE 20 MG TAB 1 tablet twice daily for 2 days, then 1 tablet once daily for 2 days PREDNISONE 59388805877 Active Daniele Mcfadden DO Active PREDNISONE 20 MG TAB 2 tabs daily for 3 days, 1 tab daily for 3 days, 1/2 tab daily for 2 days PREDNISONE 46738193061 No Longer Active Margarito Kelley MD Active IRVING-D ALLERGY & CONGESTION [id number] 1 po bid FEXOFENADINE-PSEUDOEPHEDRINE [id number] 28123526579 No Longer Active Margarito Kelley MD Active PREDNISONE 20 MG TAB 2 tabs daily for 3 days, 1 tab daily for 3 days, 1/2 tab daily for 2 days PREDNISONE 31001291659 No Longer Active Jillina Frazell ALEX Active CEFDINIR 300 MG CAPS 1 cap by mouth twice a day CEFDINIR 96660549609 No Longer Active Jillina Frazell OUTREACH ASSISTANT Active E-Z SPACER ERIBERTO use with proair inhalier every 4 times as need. SPACER/AERO-HOLDING CHAMBERS 20489527405 No Longer Active Jillina Frazell OUTREACH ASSISTANT Active PROAIR HFA 108 (90 BASE) MCG/ACT AERS 2 puffs every 4 hours as needed 2014 ALBUTEROL SULFATE 28383219696 No Longer Active Jillina Frazell OUTREACH ASSISTANT Active CEFTIN 500 MG TAB 1 tablet by mouth twice daily for ten days. CEFUROXIME AXETIL 06956968952 No Longer Active Ezekielllina Framarkl ALEX Active PREDNISONE 20 MG TAB 2 tabs daily for 3 days, 1 tab daily for 3 days, 1/2 tab daily for 2 days PREDNISONE 03776911815 No Longer Active Margarito Kelley MD Active CEPHALEXIN 500 MG CAPS 1 tablet by mouth three times daily for ten days 06/25 CEPHALEXIN 03645533077 No Longer Active Renée Adames APRN Active MEDROL (MARY) 4 MG TABS 6 pills on day 1, 5 pills on day 2, 4 pills on day 3, 4 pills on day 4, 2 pills on day 5, 1 pill on day 6 METHYLPREDNISOLONE 30197343755 No Longer Active Annita Mejia MD PhD Active ZITHROMAX Z-MARY 250 MG TABS 2 today and then 1 daily for 4 days AZITHROMYCIN 03562350092 No Longer Active Annita Mejia MD PhD Active GUAIFENESIN-CODEINE 100-10 MG/5ML SYRP 5ml every 4 to 6 hours as needed for cough GUAIFENESIN-CODEINE 41717221417 No Longer Active Annita Mejia MD PhD Active FLONASE 50 MCG/ACT SUSP 1 spray each nostril am and hs FLUTICASONE PROPIONATE 85218610206 No Longer Active Kendell Coronado MD Active MELOXICAM 15 MG TABS 1 po q day for pain with food MELOXICAM 48518659952 No Longer Active Kendell Coronado MD Active HYDROCODONE-ACETAMINOPHEN 5-325 MG TABS 1-2 q 4-6 hrs prn pain 20 tabs 07/04 HYDROCODONE-ACETAMINOPHEN 88722113460 No Longer Active Daniele Mcfadden DO Active PREDNISONE 20 MG TAB 1 tablet twice daily for 2 days, then 1 tablet once daily for 2 days PREDNISONE 81989960231 No Longer Active Daniele Mcfadden DO Active PREDNISONE 20 MG TAB 1 po bid 2 days, then daily for 2 days 12/27 PREDNISONE 47284646119 No Longer Active Alexander LOPEZ Active AZITHROMYCIN 250 MG TABS 2 po qd x 1 day, then 1 po qd x 4 days AZITHROMYCIN 60045408120 No Longer Active Daniele Mcfadden DO Active MUCINEX MAXIMUM STRENGTH [id number] 1 po qd GUAIFENESIN XR12H- TAB 37233369949 No Longer Active Daniele Mcfadden DO Active AZITHROMYCIN 250 MG TABS 2 po qd x 1 day, then 1 po qd x 4 days AZITHROMYCIN 44243817537 No Longer Active Margarito Kelley MD Active MUCINEX MAXIMUM STRENGTH [id number] 1 po qd MUCINEX MAXIMUM STRENGTH [id number] GUAIFENESIN CF03L-YVP Inactive PREDNISONE 20 MG TAB 1 po bid 2 days, then daily for 2 days 12/27 PREDNISONE 20 MG TAB 272957 PREDNISONE Inactive PREDNISONE 20 MG TAB 1 tablet twice daily for 2 days, then 1 tablet once daily for 2 days PREDNISONE 20 MG TAB 608580 PREDNISONE Inactive HYDROCODONE-ACETAMINOPHEN 5-325 MG TABS 1-2 q 4-6 hrs prn pain 20 tabs 07/04 HYDROCODONE-ACETAMINOPHEN 5-325 MG TABS 105302 HYDROCODONE- ACETAMINOPHEN Inactive MELOXICAM 15 MG TABS 1 po q day for pain with food MELOXICAM 15 MG TABS 924067 MELOXICAM Inactive FLONASE 50 MCG/ACT SUSP 1 spray each nostril am and hs FLONASE 50 MCG/ACT SUSP FLUTICASONE PROPIONATE Inactive GUAIFENESIN-CODEINE 100-10 MG/5ML SYRP 5ml every 4 to 6 hours as needed for cough GUAIFENESIN-CODEINE 100-10 MG/5ML SYRP 474293 GUAIFENESIN-CODEINE Inactive ZITHROMAX Z-MARY 250 MG TABS 2 today and then 1 daily for 4 days ZITHROMAX Z-MARY 250 MG TABS 8894878 AZITHROMYCIN Inactive CEFTIN 500 MG TAB 1 tablet by mouth twice daily for ten days. CEFTIN 500 MG TAB 267930 CEFUROXIME AXETIL Inactive PROAIR HFA 108 (90 BASE) MCG/ACT AERS 2 puffs every 4 hours as needed 2014 PROAIR HFA 108 (90 BASE) MCG/ACT AERS ALBUTEROL SULFATE Inactive E-Z SPACER ERIBERTO use with proair inhalier every 4 times as need. E-Z SPACER ERIBERTO SPACER/AERO-HOLDING CHAMBERS Inactive IRVING-D ALLERGY & CONGESTION [id number] 1 po bid IRVING-D ALLERGY & CONGESTION [id number] FEXOFENADINE-PSEUDOEPHEDRINE XR12H- TAB Inactive AZITHROMYCIN 250 MG TABS 2 po qd x 1 day, then 1 po qd x 4 days AZITHROMYCIN 250 MG TABS 0276114 AZITHROMYCIN Inactive AZITHROMYCIN 250 MG TABS 2 po qd x 1 day, then 1 po qd x 4 days AZITHROMYCIN 250 MG TABS 7943092 AZITHROMYCIN Inactive MEDROL (MARY) 4 MG TABS 6 pills on day 1, 5 pills on day 2, 4 pills on day 3, 4 pills on day 4, 2 pills on day 5, 1 pill on day 6 MEDROL (MARY) 4 MG TABS 795395 METHYLPREDNISOLONE Inactive CEPHALEXIN 500 MG CAPS 1 tablet by mouth three times daily for ten days 06/25 CEPHALEXIN 500 MG CAPS 294853 CEPHALEXIN Inactive PREDNISONE 20 MG TAB 2 tabs daily for 3 days, 1 tab daily for 3 days, 1/2 tab daily for 2 days PREDNISONE 20 MG TAB 195789 PREDNISONE Inactive CEFDINIR 300 MG CAPS 1 cap by mouth twice a day CEFDINIR 300 MG CAPS 680860 CEFDINIR Inactive PREDNISONE 20 MG TAB 2 tabs daily for 3 days, 1 tab daily for 3 days, 1/2 tab daily for 2 days PREDNISONE 20 MG TAB 565436 PREDNISONE Inactive PREDNISONE 20 MG TAB 2 tabs daily for 3 days, 1 tab daily for 3 days, 1/2 tab daily for 2 days PREDNISONE 20 MG TAB 743796 PREDNISONE Inactive Immunizations Vaccine Administration Date Value Standard Description Human Papillomavirus vaccine (Gardasil) #2, (HPV #2) Gardasil [ CVX62] human papilloma virus vaccine, quadrivalent Seasonal influenza vaccine, injectable, containing preservative, for > 3 years old (Afluria, FluLaval, Fluzone, Fluvirin, Fluarix, Agriflu(>=18 yo)) Fluzone (>3 yrs.) [QCH170] Influenza, seasonal, injectable Human Papillomavirus Vaccine (Gardasil) #1 Given (HPV #1) Gardasil [CVX62] human papilloma virus vaccine, quadrivalent hepatitis A immunization #2 Havrix-Pedi hepatitis A vaccine, unspecified formulation Boostrix (Tetanus toxoid, reduced diphtheria toxoid and acellular pertussis vaccine, adsorbed), booster Boostrix [WHY711] tetanus toxoid, reduced diphtheria toxoid, and acellular [...] (measles, mumps, rubella) virus immunization #1 MMR Hemophilus influenza B immunization #3 ProHIBit Haemophilus [...] Range Description blood pressure, diastolic - 8462-4 64 mm[Hg] BP [place] blood pressure, systolic - 8480-6 114 mm[Hg] BP sys pulse rate E&M - 8867-4 74 /min Heart rate temperature E&M 98.1 [degF] Body temperature weight E&M - 3141-9 211 [lb_av] Weight Measured blood pressure, diastolic - 8462-4 73 mm[Hg] BP [place] blood pressure, systolic - 8480-6 130 mm[Hg] BP sys pulse rate E&M - 8867-4 88 /min Heart rate temperature E&M 97.9 [degF] Body temperature weight E&M - 3141-9 198.5 [lb_av] Weight Measured blood pressure, diastolic - 8462-4 59 mm[Hg] BP [place] blood pressure, systolic - 8480-6 114 mm[Hg] BP sys pulse rate E&M - 8867-4 90 /min Heart rate temperature E&M 95.3 [degF] Body temperature weight E&M - 3141-9 191 [lb_av] Weight Measured Encounters Code Encounter Date Provider Facility CPT-94808 Level 3 Est. Patient 14:15:[address] [facility] CPT-51848 Level 3 Est. Patient 13:57:19 LOCOMOTIVE PIPE FITTER Margarito Kelley MD [facility] CPT-07376 Level 3 Est. Patient 09:16:05 LOCOMOTIVE PIPE FITTER Margarito Kelley MD [facility] CPT-82418 Level 3 Est. Patient 15:37:06 LOCOMOTIVE PIPE FITTER Daniele Mcfadden DO [facility] CPT-70080 Level 3 Est. Patient 11:56:34 LOCOMOTIVE PIPE FITTER Renée Adames APRN [facility] CPT-57124 Level 3 Est. Patient 12:19:42 CDT Daniele Mcfadden DO [facility] CPT-64917 Level 3 Est. Patient 11:08:45 CDT Annita Mejia MD PhD [facility] CPT-15568 Level 3 Est. Patient 12:00:17 CDT Kendell Coronado MD [facility] CPT-24569 Level 3 Est. Patient 12:27:25 CDT Daniele Gaetano Bogdan [facility] CPT-04147 Level 3 Est. Patient 18:45:11 LOCOMOTIVE PIPE FITTER Daniele Mcfadden [facility] CPT-61375 Level 3 Est. Patient 10:12:24 LOCOMOTIVE PIPE FITTER Daniele Mcfadden [facility] CPT-82676 Level 3 Est. Patient 14:35:11 LOCOMOTIVE PIPE FITTER Daniele Mcfadden [facility] CPT-44787 Level 3 Est. Patient 14:11:04 CDT Daniele Gaetano Bogdan [facility] CPT-36643 Level 3 Est. Patient 10:52:13 CDT Alexander LOPEZ [facility] CPT-73914 Level 3 Est. Patient 11:01:08 LOCOMOTIVE PIPE FITTER Daniele Mcfadden [facility] CPT-29835 Level 3 Est. Patient 10:55:[address] [facility] CPT-35474 Level 3 Est. Patient 14:03:08 CDT Daniele Mcfadden [facility] CPT-69527 Level 3 Est. Patient 11:26:19 CDT Margarito Kelley MD [facility] CPT-65725 Level 2 Est. Patient 15:32:04 LOCOMOTIVE PIPE FITTER Daniele Mcfadden [facility] CPT-12979 Level 3 Est. Patient 16:01:26 LOCOMOTIVE PIPE FITTER Daniele Mcfadden [facility] CPT-59020 Level 3 Est. Patient 06:37:10 LOCOMOTIVE PIPE FITTER Daniele Mcfadden [facility] Procedures Code Procedure Name Date Entry Date Standard Description CPT-51148 Abd compl w upright 12:34:39 CDT CPT-87712 Immunization Single Admin 11:38:41 CDT CPT-99374 Fluzone Quadrivalent Intramuscular Suspension 0.5 ML 11: 38:41 CDT CPT-OV Office Visit 14:45:12 LOCOMOTIVE PIPE FITTER CPT-88640 [employer] all organs plus proximal aorta and distal IVC 2012 12:13:02 LOCOMOTIVE PIPE FITTER CPT-86223 Abd compl w upright 15:12:58 LOCOMOTIVE PIPE FITTER CPT-05251 Venipuncture Draw Fee 14:38:32 LOCOMOTIVE PIPE FITTER CPT-12641 Administration single or combination vaccine inc oral 17 :10:04 CDT CPT-64836 Gardasil 17:10:04 CDT CPT-34593 Venipuncture Draw Fee 16:07:54 LOCOMOTIVE PIPE FITTER CPT-20623 Administration 2+ single or combination vaccines inc oral 17:22:02 CDT CPT-41115 Administration single or combination vaccine inc oral 17 :22:02 CDT CPT-98128 Influenza split virus > age 3 17:22:02 CDT CPT-64004 Gardasil 17:22:02 CDT CPT-28099 Administration 2+ single or combination vaccines inc oral 14:38:31 CDT CPT-12970 Administration single or combination vaccine inc oral 14 :38:31 CDT CPT-74625 Meningococcal Conjugate Vacine (Menactra) 14:38:31 CDT CPT-47640 Gardasil 14:38:31 CDT
--- OUTSIDE RECORDS SUMMARY | 2018-02-15 06:30 | XMS REPORT | Clinical Summary ---
Author Author Admin, OLEG Organization [facility] Address Unknown Phone Unavailable Allergies, Adverse Reactions, [...] respiratory infections of unspecified site Pharyngitis-Acute 462 Active Whitley Hernandez Acute pharyngitis Hypertrophy, nasal turbinates 478.0 Active Whitley Hernandez Hypertrophy of nasal turbinates ALLERGIC RHINITIS ICD-477.9 Inactive Errol Pack MD [...] respiratory infection, viral ICD-465.9 Inactive Katie Gipson COLBY Sinusitis ICD-473.9 Inactive Katie Gipson COLBY 2017 Eustachian tube dysfunction, right ICD-381.81 Inactive Katie Gipson BUSINESS INTEGRATION ANALYST Pharyngitis-Acute ICD-462 Inactive Katie Gipson BUSINESS INTEGRATION ANALYST URI ICD-465.9 Inactive Katie Gipson BUSINESS INTEGRATION ANALYST Allergic rhinitis ICD-477.9 Inactive Katie Gipson BUSINESS INTEGRATION ANALYST Acute rhinosinusitis ICD-461.9 Inactive Katie Gipson BUSINESS INTEGRATION ANALYST Fever ICD-780.60 Inactive Katie Gipson BUSINESS INTEGRATION ANALYST Immunization due ICD-V15.83 Inactive Katie Brandan BOWMAN U R I ICD-465.9 Inactive Holly Sharma Medication List Medication Instructions Start Date Stop Date Generic Name NDC Status Provider Patient Instruction FLUTICASONE PROPIONATE 50 MCG/ACT NASAL SUSPENSION 1 spray each nostril twice daily until bottle empty FLUTICASONE PROPIONATE 64163907555 Active Daniele Mcfadden DO Active PREDNISONE 20 MG ORAL TABLET 2 tabs by mouth today, then 1 tab tomorrow 08/30 PREDNISONE 21434263046 Active Daniele Mcfadden DO Active PREDNISONE 10 MG ORAL TABLET 2 TABS BY MOUTH TODAY, THEN 1 TAB BY MOUTH DAYS 2 -5 PREDNISONE 40483326831 No Longer Active Daniele Mcfadden DO Active PREDNISONE 20 MG ORAL TABLET two tabs by mouth today, then one tab by mouth days two and three PREDNISONE 88613828986 No Longer Active Whitley Hernandez Active AZITHROMYCIN 250 MG ORAL TABLET 2 po qd x 1 day, then 1 po qd x 4 days 07/24 AZITHROMYCIN 48599375869 No Longer Active Daniele Mcfadden DO Active IRVING-D ALLERGY & CONGESTION 60-120 MG ORAL TABLET EXTENDED RELEASE 12 HOUR 1 tablet twice daily as needed for congestion/allergies FEXOFENADINE-PSEUDOEPHEDRINE 46412769156 Active Holly Sharma Active PREDNISONE 20 MG ORAL TABLET 2 tabs daily for 3 days, 1 tab daily for 3 days, 1/2 tab daily for 2 days start tomorrow 07/31/16 PREDNISONE 23593987175 No Longer Active Jillsd Borgeszelyue JOHNSON Active AZITHROMYCIN 250 MG ORAL TABLET 2 po qd x 1 day, then 1 po qd x 4 days 08/30 AZITHROMYCIN 11160518176 No Longer Active Jillina Frazell SCIENTIFIC GLASS BLOWER Active MUCINEX D 60-600 MG ORAL TABLET EXTENDED RELEASE 12 HOUR 1 po BID PRN Congestion PSEUDOEPHEDRINE-GUAIFENESIN 83490586258 No Longer Active Jessika Nunes APRN Active CEFDINIR 300 MG ORAL CAPSULE 1 po BID x 10 days CEFDINIR 71501327530 No Longer Active Griselda Horvath APRN Active PREDNISONE 20 MG ORAL TABLET 2 tabs daily for 3 days, 1 tab daily for 3 days, 1/2 tab daily for 2 days PREDNISONE 06321250354 No Longer Active Ezekielllina Alexandru ONTIVEROSN Active FLUTICASONE PROPIONATE 50 MCG/ACT NASAL SUSPENSION 1 to 2 sprays each nostril daily FLUTICASONE PROPIONATE 49241739348 No Longer Active Griselda Horvath APRN Active GUAIFENESIN ER 600 MG ORAL TABLET EXTENDED RELEASE 12 HOUR 1 twice a day as needed for congestion GUAIFENESIN 10944192141 No Longer Active Griselda Horvath APRN Active CEFDINIR 300 MG ORAL CAPSULE by mouth twice a day CEFDINIR 36012379305 No Longer Active Griselda Horvath APRN Active PREDNISONE 20 MG ORAL TABLET 1 tablet twice daily for 2 days, then 1 tablet once daily for 2 days PREDNISONE 01740731446 No Longer Active Griselda Horvath APRN Active PREDNISONE 20 MG ORAL TABLET 2 tabs daily for 3 days, 1 tab daily for 3 days, 1/2 tab daily for 2 days PREDNISONE 77175867002 No Longer Active Margarito Kelley MD Active IRVING-D ALLERGY & CONGESTION TABLET EXTENDED RELEASE 12 HOUR 1 po bid 05/26 FEXOFENADINE-PSEUDOEPHEDRINE [id number] 31952881710 No Longer Active Margarito Kelley MD Active PREDNISONE 20 MG ORAL TABLET 2 tabs daily for 3 days, 1 tab daily for 3 days, 1/2 tab daily for 2 days PREDNISONE 06406568266 No Longer Active Ezekielllsd Horvath APRN Active CEFDINIR 300 MG ORAL CAPSULE 1 cap by mouth twice a day CEFDINIR 91162223461 No Longer Active Ezekielllsd Horvath APRN Active E-Z SPACER DEVICE use with proair inhalier every 4 times as need. SPACER/AERO-HOLDING CHAMBERS 41424875629 No Longer Active Griselda Horvath APRN Active PROAIR HFA 108 (90 Base) MCG/ACT INHALATION AEROSOL SOLUTION 2 puffs every 4 hours as needed ALBUTEROL SULFATE 75381950861 No Longer Active Griselda Horvath APRN Active CEFTIN 500 MG ORAL TABLET 1 tablet by mouth twice daily for ten days. CEFUROXIME AXETIL 18402198332 No Longer Active Griselda Horvath APRN Active PREDNISONE 20 MG ORAL TABLET 2 tabs daily for 3 days, 1 tab daily for 3 days, 1/2 tab daily for 2 days PREDNISONE 28957270325 No Longer Active Margarito Kelley MD Active CEPHALEXIN 500 MG ORAL CAPSULE 1 tablet by mouth three times daily for ten days CEPHALEXIN 38348504265 No Longer Active Renée Adames APRN Active MEDROL 4 MG ORAL TABLET THERAPY PACK 6 pills on day 1, 5 pills on day 2, 4 pills on day 3, 4 pills on day 4, 2 pills on day 5, 1 pill on day 6 METHYLPREDNISOLONE 68930832142 No Longer Active Annita Mejia MD PhD Active ZITHROMAX Z-MARY 250 MG ORAL TABLET 2 today and then 1 daily for 4 days 03/11 AZITHROMYCIN 63714709918 No Longer Active Annita Mejia MD PhD Active GUAIFENESIN-CODEINE 100-10 MG/5ML ORAL SYRUP 5ml every 4 to 6 hours as needed for cough GUAIFENESIN-CODEINE 74501992599 No Longer Active Annita Mejia MD PhD Active FLONASE 50 MCG/ACT NASAL SUSPENSION 1 spray each nostril am and hs FLUTICASONE PROPIONATE 21487257183 No Longer Active Kendell Coronado MD Active MELOXICAM 15 MG ORAL TABLET 1 po q day for pain with food MELOXICAM 95819723679 No Longer Active Kendell Coronado MD Active HYDROCODONE-ACETAMINOPHEN 5-325 MG ORAL TABLET 1-2 q 4-6 hrs prn pain 20 tabs HYDROCODONE-ACETAMINOPHEN 47245046890 No Longer Active Daniele Mcfadden DO Active PREDNISONE 20 MG ORAL TABLET 1 tablet twice daily for 2 days, then 1 tablet once daily for 2 days PREDNISONE 18105447142 No Longer Active Daniele Mcfadden DO Active PREDNISONE 20 MG ORAL TABLET 1 po bid 2 days, then daily for 2 days PREDNISONE 02008937241 No Longer Active Alexander LOPEZ Active AZITHROMYCIN 250 MG ORAL TABLET 2 po qd x 1 day, then 1 po qd x 4 days 08/05 AZITHROMYCIN 73702748898 No Longer Active Daniele Mcfadden DO Active MUCINEX MAXIMUM STRENGTH TABLET EXTENDED RELEASE 12 HOUR 1 po qd GUAIFENESIN [id number] 79861688736 No Longer Active Daniele Mcfadden DO Active AZITHROMYCIN 250 MG ORAL TABLET 2 po qd x 1 day, then 1 po qd x 4 days 11/26 AZITHROMYCIN 70258423774 No Longer Active Margarito Kelley MD Active MUCINEX MAXIMUM STRENGTH TABLET EXTENDED RELEASE 12 HOUR 1 po qd MUCINEX MAXIMUM STRENGTH TABLET EXTENDED RELEASE 12 HOUR GUAIFENESIN [id number] Inactive PREDNISONE 20 MG ORAL TABLET 1 po bid 2 days, then daily for 2 days PREDNISONE 20 MG ORAL TABLET 293837 PREDNISONE Inactive PREDNISONE 20 MG ORAL TABLET 1 tablet twice daily for 2 days, then 1 tablet once daily for 2 days PREDNISONE 20 MG ORAL TABLET 796171 PREDNISONE Inactive HYDROCODONE-ACETAMINOPHEN 5-325 MG ORAL TABLET 1-2 q 4-6 hrs prn pain 20 tabs HYDROCODONE-ACETAMINOPHEN 5-325 MG ORAL TABLET 065705 HYDROCODONE-ACETAMINOPHEN Inactive MELOXICAM 15 MG ORAL TABLET 1 po q day for pain with food MELOXICAM 15 MG ORAL TABLET 580506 MELOXICAM Inactive FLONASE 50 MCG/ACT NASAL SUSPENSION 1 spray each nostril am and hs FLONASE 50 MCG/ACT NASAL SUSPENSION 8183254 FLUTICASONE PROPIONATE Inactive GUAIFENESIN-CODEINE 100-10 MG/5ML ORAL SYRUP 5ml every 4 to 6 hours as needed for cough GUAIFENESIN-CODEINE 100-10 MG/5ML ORAL SYRUP 860038 GUAIFENESIN-CODEINE Inactive ZITHROMAX Z-MARY 250 MG ORAL TABLET 2 today and then 1 daily for 4 days 03/11 ZITHROMAX Z-MARY 250 MG ORAL TABLET 686573 AZITHROMYCIN Inactive CEFTIN 500 MG ORAL TABLET 1 tablet by mouth twice daily for ten days. CEFTIN 500 MG ORAL TABLET 127112 CEFUROXIME AXETIL Inactive PROAIR HFA 108 (90 [...] CONGESTION TABLET EXTENDED RELEASE 12 HOUR FEXOFENADINE-PSEUDOEPHEDRINE [id number] Inactive PREDNISONE 20 MG ORAL TABLET 1 tablet twice daily for 2 days, then 1 tablet once daily for 2 days PREDNISONE 20 MG ORAL TABLET 724991 PREDNISONE Inactive GUAIFENESIN ER 600 MG ORAL TABLET EXTENDED RELEASE 12 HOUR 1 twice a day as needed for congestion GUAIFENESIN ER 600 MG ORAL TABLET EXTENDED RELEASE 12 HOUR GUAIFENESIN Inactive FLUTICASONE PROPIONATE 50 MCG/ACT NASAL SUSPENSION 1 to 2 sprays each nostril daily FLUTICASONE PROPIONATE 50 MCG/ACT NASAL SUSPENSION 1603189 FLUTICASONE PROPIONATE Inactive MUCINEX D 60-600 MG ORAL TABLET EXTENDED RELEASE 12 HOUR 1 po BID PRN Congestion MUCINEX D 60-600 MG ORAL TABLET EXTENDED RELEASE 12 HOUR PSEUDOEPHEDRINE-GUAIFENESIN Inactive PREDNISONE 20 MG ORAL TABLET two tabs by mouth today, then one tab by mouth days two and three PREDNISONE 20 MG ORAL TABLET 151722 PREDNISONE Inactive PREDNISONE 10 MG ORAL TABLET 2 TABS BY MOUTH TODAY, THEN 1 TAB BY MOUTH DAYS 2 -5 PREDNISONE 10 MG ORAL TABLET 425553 PREDNISONE Inactive AZITHROMYCIN 250 MG ORAL TABLET 2 po qd x 1 day, then 1 po qd x 4 days 11/26 AZITHROMYCIN 250 MG ORAL TABLET 763315 AZITHROMYCIN Inactive AZITHROMYCIN 250 MG ORAL TABLET 2 po qd x 1 day, then 1 po qd x 4 days 08/05 AZITHROMYCIN 250 MG ORAL TABLET 588538 AZITHROMYCIN Inactive MEDROL 4 MG ORAL TABLET THERAPY PACK 6 pills on day 1, 5 pills on day 2, 4 pills on day 3, 4 pills on day 4, 2 pills on day 5, 1 pill on day 6 MEDROL 4 MG ORAL TABLET THERAPY PACK 894467 METHYLPREDNISOLONE Inactive CEPHALEXIN 500 MG ORAL CAPSULE 1 tablet by mouth three times daily for ten days CEPHALEXIN 500 MG ORAL CAPSULE 994915 CEPHALEXIN Inactive PREDNISONE 20 MG ORAL TABLET 2 tabs daily for 3 days, 1 tab daily for 3 days, 1/2 tab daily for 2 days PREDNISONE 20 MG ORAL TABLET 830668 PREDNISONE Inactive CEFDINIR 300 MG ORAL CAPSULE 1 cap by mouth twice a day CEFDINIR 300 MG ORAL CAPSULE 872768 CEFDINIR Inactive PREDNISONE 20 MG ORAL TABLET 2 tabs daily for 3 days, 1 tab daily for 3 days, 1/2 tab daily for 2 days PREDNISONE 20 MG ORAL TABLET 664329 PREDNISONE Inactive PREDNISONE 20 MG ORAL TABLET 2 tabs daily for 3 days, 1 tab daily for 3 days, 1/2 tab daily for 2 days PREDNISONE 20 MG ORAL TABLET 911228 PREDNISONE Inactive CEFDINIR 300 MG ORAL CAPSULE by mouth twice a day CEFDINIR 300 MG ORAL CAPSULE 593021 CEFDINIR Inactive PREDNISONE 20 MG ORAL TABLET 2 tabs daily for 3 days, 1 tab daily for 3 days, 1/2 tab daily for 2 days PREDNISONE 20 MG ORAL TABLET 558125 PREDNISONE Inactive CEFDINIR 300 MG ORAL CAPSULE 1 po BID x 10 days CEFDINIR 300 MG ORAL CAPSULE 783202 CEFDINIR Inactive AZITHROMYCIN 250 MG ORAL TABLET 2 po qd x 1 day, then 1 po qd x 4 days 08/30 AZITHROMYCIN 250 MG ORAL TABLET 255293 AZITHROMYCIN Inactive PREDNISONE 20 MG ORAL TABLET 2 tabs daily for 3 days, 1 tab daily for 3 days, 1/2 tab daily for 2 days start tomorrow 07/31/16 PREDNISONE 20 MG ORAL TABLET 198523 PREDNISONE Inactive AZITHROMYCIN 250 MG ORAL TABLET 2 po qd x 1 day, then 1 po qd x 4 days 07/24 AZITHROMYCIN 250 MG ORAL TABLET 285220 AZITHROMYCIN Inactive Immunizations Vaccine Administration Date Value Standard Description Seasonal influenza vaccine, injectable, containing preservative, for > 3 years old (Afluria, FluLaval, Fluzone, Fluvirin, Fluarix, Agriflu(>=18 yo)) Fluzone (>3 yrs.) [[id number]] Influenza, seasonal, injectable Human Papillomavirus vaccine (Gardasil) #2, (HPV #2) Gardasil [ [id number]] human papilloma virus vaccine, quadrivalent Human Papillomavirus Vaccine (Gardasil) #1 Given (HPV #1) Gardasil [CVX62] human papilloma virus vaccine, quadrivalent hepatitis A immunization #2 Havrix-Pedi hepatitis A vaccine, unspecified formulation Boostrix (Tetanus toxoid, reduced diphtheria toxoid and acellular pertussis vaccine, adsorbed), booster Boostrix [AIK000] tetanus toxoid, reduced diphtheria toxoid, and acellular [...] Value Unit Range Description blood pressure, diastolic 66 mm[Hg] BP herndon [...] identification kit, rapid strep method Negative Negative Encounters Code Encounter Date Provider Facility CPT-01841 Level 3 Est. Patient 09:35:49 DIETARY DIRECTOR Daniele Mcfadden [facility] CPT-87186 Level 3 Est. Patient 09:35:25 DIETARY DIRECTOR Daniele Mcfadden [facility] CPT-87619 Level 3 Est. Patient 16:03:55 DIETARY DIRECTOR Whitley Quiroz [facility] CPT-64543 Level 3 Est. Patient 17:42:49 DIETARY DIRECTOR Whitley Quiroz [facility] CPT-42737 Level 3 Est. Patient 10:49:47 DIETARY DIRECTOR Griselda Horvath [facility] CPT-14084 Level 3 Est. Patient 08:43:59 DIETARY DIRECTOR Jessika Nunes [facility] CPT-74660 Level 3 Est. Patient 09:05:19 DIETARY DIRECTOR Griselda Horvath [facility] CPT-28694 Level 3 Est. Patient 15:45:46 CDT Griselda Horvath [facility] CPT-04660 Level 3 Est. Patient 14:15:52 CDT Daniele Mcfadden [facility] CPT-53727 Level 3 Est. Patient 13:57:19 DIETARY DIRECTOR Margarito Kelley MD [facility] CPT-11984 Level 3 Est. Patient 09:16:05 DIETARY DIRECTOR Margarito Kelley MD [facility] CPT-60461 Level 3 Est. Patient 15:37:06 DIETARY DIRECTOR Daniele W Bogdan [facility] CPT-77265 Level 3 Est. Patient 11:56:34 DIETARY DIRECTOR Renée Adames A[facility] CPT-51071 Level 3 Est. Patient 12:19:42 CDT Daniele Mcfadden [facility] CPT-95566 Level 3 Est. Patient 11:08:45 CDT Annita Mejia MD PhD [facility] CPT-93973 Level 3 Est. Patient 12:00:17 CDT Kendell Coronado MD [facility] CPT-45090 Level 3 Est. Patient 12:27:25 CDT Daniele Mcfadden [facility] CPT-92227 Level 3 Est. Patient 18:45:11 DIETARY DIRECTOR Daniele Mcfadden [facility] CPT-36621 Level 3 Est. Patient 10:12:24 DIETARY DIRECTOR Daniele Mcfadden [facility] CPT-40792 Level 3 Est. Patient 14:35:11 DIETARY DIRECTOR Daniele Mcfadden [facility] CPT-24744 Level 3 Est. Patient 14:11:04 CDT Daniele Mcfadden [facility] CPT-02660 Level 3 Est. Patient 10:52:13 CDT Alexander LOPEZ [facility] CPT-30953 Level 3 Est. Patient 11:01:08 DIETARY DIRECTOR Daniele Mcfadden [facility] CPT-83644 Level 3 Est. Patient 10:55:35 CDT Daniele Mcfadden [facility] CPT-06815 Level 3 Est. Patient 14:03:08 CDT Daniele Mcfadden [facility] CPT-05034 Level 3 Est. Patient 11:26:19 CDT Margarito Kelley MD [facility] CPT-03332 Level 2 Est. Patient 15:32:04 DIETARY DIRECTOR Daniele Mcfadden [facility] CPT-62711 Level 3 Est. Patient 16:01:26 DIETARY DIRECTOR Daniele Gaetano Mcfadden [facility] CPT-27547 Level 3 Est. Patient 06:37:10 DIETARY DIRECTOR Daniele Mcfadden [facility] Procedures Code Procedure Name Date Entry Date Standard Description CPT-22890 Addl Vx - Ix admin via ID IM or jet injects without counseling by physician 14:37:19 CDT CPT-37056 Meningococcal B, recombinant vaccine 14:37:19 CDT 03/05 CPT-41136 First Vx - Ix admin via ID IM or jet injects without counseling by physician 14:37:19 CDT CPT-68602 Menveo Intramuscular Solution Reconstituted 14:37:19 CDT CPT-94437 Meningococcal Conjugate Vacine (Menactra) 11:20:04 CDT CPT-46616 Throat Culture - LAB USE ONLY 12:15:45 DIETARY DIRECTOR CPT-30001 Misa Flu A/B - LAB USE ONLY 12:15:45 DIETARY DIRECTOR CPT-37415 Rapid Strep (Reflex throat) - LAB USE ONLY 12:15:45 DIETARY DIRECTOR CPT-27657 Rapid Strep (Grp A) - LAB USE ONLY 13:06:06 CDT CPT-70067 Abd compl w upright 12:34:39 CDT CPT-51924 Immunization Single Admin 11:38:41 CDT CPT-98685 Fluzone Quadrivalent Intramuscular Suspension 0.5 ML 11: 38:41 CDT CPT-OV Office Visit 14:45:12 DIETARY DIRECTOR CPT-34704 Sono abd com inc all organs plus proximal aorta and distal IVC 2012 12:13:02 DIETARY DIRECTOR CPT-62746 Abd compl w upright 15:12:58 DIETARY DIRECTOR CPT-55714 Venipuncture Draw Fee 14:38:32 DIETARY DIRECTOR CPT-16248 Administration single or combination vaccine inc oral 17 :10:04 CDT CPT-51656 Gardasil 17:10:04 CDT CPT-02177 Venipuncture Draw Fee 16:07:54 DIETARY DIRECTOR CPT-91855 Administration 2+ single or combination vaccines inc oral 17:22:02 CDT CPT-81935 Administration single or combination vaccine inc oral 17 :22:02 CDT CPT-64295 Influenza split virus > age 3 17:22:02 CDT CPT-50825 Gardasil 17:22:02 CDT CPT-97665 Administration 2+ single or combination vaccines inc oral 14:38:31 CDT CPT-51558 Administration single or combination vaccine inc oral 14 :38:31 CDT CPT-91188 Meningococcal Conjugate Vacine (Menactra) 14:38:31 CDT CPT-44227 Gardasil 14:38:31 CDT
--- OUTSIDE RECORDS SUMMARY | 2018-02-15 06:31 | XMS REPORT | Clinical Summary ---
Author Author Admin, OLEG Organization [facility] Address Unknown Phone Unavailable Allergies, Adverse [...] unspecified site Sinusitis 473.9 Active Griselda Horvath CAREER AND TECHNOLOGY EDUCATION TEACHER Unspecified sinusitis (chronic) Eustachian tube dysfunction, right 381.81 Active Margarito Kelley MD Dysfunction of Eustachian tube ALLERGIC RHINITIS ICD-477.9 Inactive Errol Pack MD [...] 1/2 tab daily for 2 days PREDNISONE 55745298068 Active Margarito Kelley MD Active IRVING-D ALLERGY & CONGESTION [id number]-WDU 1 po bid FEXOFENADINE-PSEUDOEPHEDRINE [id number]-QJY 18573055107 No Longer Active Margarito Kelley MD Active PREDNISONE 20 MG TAB 2 tabs daily for 3 days, 1 tab daily for 3 days, 1/2 tab daily for 2 days PREDNISONE 91671617215 No Longer Active Jillina Frazell CAREER AND TECHNOLOGY EDUCATION TEACHER Active CEFDINIR 300 MG CAPS 1 cap by mouth twice a day CEFDINIR 28916107631 No Longer Active Jillina Frazell CAREER AND TECHNOLOGY EDUCATION TEACHER Active E-Z SPACER ERIBERTO use with proair inhalier every 4 times as need. SPACER/AERO-HOLDING CHAMBERS 65743506000 No Longer Active Jillina Frazell CAREER AND TECHNOLOGY EDUCATION TEACHER Active PROAIR HFA 108 (90 BASE) MCG/ACT AERS 2 puffs every 4 hours as needed 2014 ALBUTEROL SULFATE 51342010083 No Longer Active Jillina Frazell CAREER AND TECHNOLOGY EDUCATION TEACHER Active CEFTIN 500 MG TAB 1 tablet by mouth twice daily for ten days. CEFUROXIME AXETIL 46435353622 No Longer Active Jillina Frazell CAREER AND TECHNOLOGY EDUCATION TEACHER Active PREDNISONE 20 MG TAB 2 tabs daily for 3 days, 1 tab daily for 3 days, 1/2 tab daily for 2 days PREDNISONE 01259543022 No Longer Active Margarito Kelley MD Active CEPHALEXIN 500 MG CAPS 1 tablet by mouth three times daily for ten days 06/25 CEPHALEXIN 32469234571 No Longer Active Renée Adames APRN Active MEDROL (MARY) 4 MG TABS 6 pills on day 1, 5 pills on day 2, 4 pills on day 3, 4 pills on day 4, 2 pills on day 5, 1 pill on day 6 METHYLPREDNISOLONE 54917753112 No Longer Active Annita Mejia MD PhD Active ZITHROMAX Z-MARY 250 MG TABS 2 today and then 1 daily for 4 days AZITHROMYCIN 04716600117 No Longer Active Annita Mejia MD PhD Active GUAIFENESIN-CODEINE 100-10 MG/5ML SYRP 5ml every 4 to 6 hours as needed for cough GUAIFENESIN-CODEINE 09876506244 No Longer Active Annita Mejia MD PhD Active FLONASE 50 MCG/ACT SUSP 1 spray each nostril am and hs FLUTICASONE PROPIONATE 99126134347 No Longer Active Kendell Coronado MD Active MELOXICAM 15 MG TABS 1 po q day for pain with food MELOXICAM 44971588482 No Longer Active Kendell Coronado MD Active HYDROCODONE-ACETAMINOPHEN 5-325 MG TABS 1-2 q 4-6 hrs prn pain 20 tabs 07/04 HYDROCODONE-ACETAMINOPHEN 83523576515 No Longer Active Daniele Mcfadden DO Active PREDNISONE 20 MG TAB 1 tablet twice daily for 2 days, then 1 tablet once daily for 2 days PREDNISONE 89023620950 No Longer Active Daniele Mcfadden DO Active PREDNISONE 20 MG TAB 1 po bid 2 days, then daily for 2 days 12/27 PREDNISONE 59980777021 No Longer Active Alexander LOPEZ Active AZITHROMYCIN 250 MG TABS 2 po qd x 1 day, then 1 po qd x 4 days AZITHROMYCIN 77002289716 No Longer Active Daniele Mcfadden DO Active MUCINEX MAXIMUM STRENGTH [id number]-VRD 1 po qd GUAIFENESIN XR12H- TAB 52732064747 No Longer Active Daniele Mcfadden DO Active AZITHROMYCIN 250 MG TABS 2 po qd x 1 day, then 1 po qd x 4 days AZITHROMYCIN 62026990039 No Longer Active Margarito Kelley MD Active MUCINEX MAXIMUM STRENGTH GU50I-KXG 1 po qd MUCINEX MAXIMUM STRENGTH [id number]-QPE GUAIFENESIN PQ16H-EGI Inactive PREDNISONE 20 MG TAB 1 po bid 2 days, then daily for 2 days 12/27 PREDNISONE 20 MG TAB 105235 PREDNISONE Inactive PREDNISONE 20 MG TAB 1 tablet twice daily for 2 days, then 1 tablet once daily for 2 days PREDNISONE 20 MG TAB 638451 PREDNISONE Inactive HYDROCODONE-ACETAMINOPHEN 5-325 MG TABS 1-2 q 4-6 hrs prn pain 20 tabs 07/04 HYDROCODONE-ACETAMINOPHEN 5-325 MG TABS 160919 HYDROCODONE- ACETAMINOPHEN Inactive MELOXICAM 15 MG TABS 1 po q day for pain with food MELOXICAM 15 MG TABS 533951 MELOXICAM Inactive FLONASE 50 MCG/ACT SUSP 1 spray each nostril am and hs FLONASE 50 MCG/ACT SUSP FLUTICASONE PROPIONATE Inactive GUAIFENESIN-CODEINE 100-10 MG/5ML SYRP 5ml every 4 to 6 hours as needed for cough GUAIFENESIN-CODEINE 100-10 MG/5ML SYRP 817686 GUAIFENESIN-CODEINE Inactive ZITHROMAX Z-MARY 250 MG TABS 2 today and then 1 daily for 4 days ZITHROMAX Z-MARY 250 MG TABS 8555585 AZITHROMYCIN Inactive CEFTIN 500 MG TAB 1 tablet by mouth twice daily for ten days. CEFTIN 500 MG TAB 963586 CEFUROXIME AXETIL Inactive PROAIR HFA 108 (90 BASE) MCG/ACT AERS 2 puffs every 4 hours as needed 2014 PROAIR HFA 108 (90 BASE) MCG/ACT AERS ALBUTEROL SULFATE Inactive E-Z SPACER ERIBERTO use with proair inhalier every 4 times as need. E-Z SPACER ERIBERTO SPACER/AERO-HOLDING CHAMBERS Inactive IRVING-D ALLERGY & CONGESTION QT50Y-IQL 1 po bid IRVING-D ALLERGY & CONGESTION [id number]-VXO FEXOFENADINE-PSEUDOEPHEDRINE XR12H- TAB Inactive AZITHROMYCIN 250 MG TABS 2 po qd x 1 day, then 1 po qd x 4 days AZITHROMYCIN 250 MG TABS 3243414 AZITHROMYCIN Inactive AZITHROMYCIN 250 MG TABS 2 po qd x 1 day, then 1 po qd x 4 days AZITHROMYCIN 250 MG TABS 9341880 AZITHROMYCIN Inactive MEDROL (MARY) 4 MG TABS 6 pills on day 1, 5 pills on day 2, 4 pills on day 3, 4 pills on day 4, 2 pills on day 5, 1 pill on day 6 MEDROL (MARY) 4 MG TABS METHYLPREDNISOLONE Inactive CEPHALEXIN 500 MG CAPS 1 tablet by mouth three times daily for ten days 06/25 CEPHALEXIN 500 MG CAPS 772316 CEPHALEXIN Inactive PREDNISONE 20 MG TAB 2 tabs daily for 3 days, 1 tab daily for 3 days, 1/2 tab daily for 2 days PREDNISONE 20 MG TAB 769374 PREDNISONE Inactive CEFDINIR 300 MG CAPS 1 cap by mouth twice a day CEFDINIR 300 MG CAPS 649490 CEFDINIR Inactive PREDNISONE 20 MG TAB 2 tabs daily for 3 days, 1 tab daily for 3 days, 1/2 tab daily for 2 days PREDNISONE 20 MG TAB 300872 PREDNISONE Inactive Immunizations Vaccine Administration Date Value Standard Description Human Papillomavirus vaccine (Gardasil) #2, (HPV #2) Gardasil [ CVX62] human papilloma virus vaccine, quadrivalent Seasonal influenza vaccine, injectable, containing preservative, for > 3 years old (Afluria, FluLaval, Fluzone, Fluvirin, Fluarix, Agriflu(>=18 yo)) Fluzone (>3 yrs.) [UIX771] Influenza, seasonal, injectable Human Papillomavirus Vaccine (Gardasil) #1 Given (HPV #1) Gardasil [CVX62] human papilloma virus vaccine, quadrivalent hepatitis A immunization #2 Havrix-Pedi hepatitis A vaccine, unspecified formulation Boostrix (Tetanus toxoid, reduced diphtheria toxoid and acellular pertussis vaccine, adsorbed), booster Boostrix [[id number]] tetanus toxoid, reduced diphtheria toxoid, and acellular [...] Range Description blood pressure, diastolic - 8462-4 73 mm[Hg] [...] E&M - 3141-9 191 [lb_av] Weight Measured blood pressure, diastolic - 8462-4 85 mm[Hg] BP herndon blood pressure, systolic - 8480-6 137 mm[Hg] BP sys pulse rate E&M - 8867-4 98 /min Heart rate temperature E&M 97.6 [degF] Body temperature weight E&M - 3141-9 180.8 [lb_av] Weight Measured Encounters Code Encounter Date Provider Facility CPT-97677 Level 3 Est. Patient 13:57:19 KETTLE OPERATOR HEAD Margarito Kelley MD [facility] CPT-71268 Level 3 Est. Patient 09:16:05 KETTLE OPERATOR HEAD Margarito Kelley MD [facility] CPT-15314 Level 3 Est. Patient 15:37:06 KETTLE OPERATOR HEAD Daniele Mcfadden [facility] CPT-36351 Level 3 Est. Patient 11:56:34 KETTLE OPERATOR HEAD Renée Adames APRN [facility] CPT-95001 Level 3 Est. Patient 12:19:42 CDT Daniele Mcfadden [facility] CPT-45303 Level 3 Est. Patient 11:08:45 CDT Annita Mejia MD PhD [facility] CPT-39467 Level 3 Est. Patient 12:00:17 CDT Kendell Coronado MD [facility] CPT-02894 Level 3 Est. Patient 12:27:25 CDT Daniele Mcfadden [facility] CPT-80167 Level 3 Est. Patient 18:45:11 KETTLE OPERATOR HEAD Daniele Mcfadden [facility] CPT-21750 Level 3 Est. Patient 10:12:24 KETTLE OPERATOR HEAD Daniele Mcfadden [facility] CPT-60943 Level 3 Est. Patient 14:35:11 KETTLE OPERATOR HEAD Daniele Mfcadden [facility] CPT-30285 Level 3 Est. Patient 14:11:04 CDT Daniele Mcfadden [facility] CPT-34284 Level 3 Est. Patient 10:52:13 CDT Alexander LOPEZ [facility] CPT-86286 Level 3 Est. Patient 11:01:08 KETTLE OPERATOR HEAD Daniele Mcfadden [facility] CPT-78357 Level 3 Est. Patient 10:55:35 CDT Daniele Mcfadden [facility] CPT-07949 Level 3 Est. Patient 14:03:08 CDT Daniele Mcfadden [facility] CPT-90318 Level 3 Est. Patient 11:26:19 CDT Margarito Kelley MD [facility] CPT-03616 Level 2 Est. Patient 15:32:04 KETTLE OPERATOR HEAD Daniele Mcfadden [facility] CPT-47769 Level 3 Est. Patient 16:01:26 KETTLE OPERATOR HEAD Daniele Mcfadden [facility] CPT-35697 Level 3 Est. Patient 06:37:10 KETTLE OPERATOR HEAD Daniele Mcfadden [facility] Procedures Code Procedure Name Date Entry Date Standard Description CPT-25762 Abd compl w upright 12:34:39 CDT CPT-44693 Immunization Single Admin 11:38:41 CDT CPT-36819 Fluzone Quadrivalent Intramuscular Suspension 0.5 ML 11: 38:41 CDT CPT-OV Office Visit 14:45:12 KETTLE OPERATOR HEAD CPT-73697 [employer] all organs plus proximal aorta and distal IVC 2012 12:13:02 KETTLE OPERATOR HEAD CPT-32464 Abd compl w upright 15:12:58 KETTLE OPERATOR HEAD CPT-44611 Venipuncture Draw Fee 14:38:32 KETTLE OPERATOR HEAD CPT-52276 Administration single or combination vaccine inc oral 17 :10:04 CDT CPT-41288 Gardasil 17:10:04 CDT CPT-90292 Venipuncture Draw Fee 16:07:54 KETTLE OPERATOR HEAD CPT-86715 Administration 2+ single or combination vaccines inc oral 17:22:02 CDT CPT-33419 Administration single or combination vaccine inc oral 17 :22:02 CDT CPT-55942 Influenza split virus > age 3 17:22:02 CDT CPT-81614 Gardasil 17:22:02 CDT CPT-05536 Administration 2+ single or combination vaccines inc oral 14:38:31 CDT CPT-78049 Administration single or combination vaccine inc oral 14 :38:31 CDT CPT-08100 Meningococcal Conjugate Vacine (Menactra) 14:38:31 CDT CPT-81459 Gardasil 14:38:31 CDT
--- OUTSIDE RECORDS SUMMARY | 2018-02-15 06:31 | XMS REPORT | Clinical Summary ---
Author Author Admin, OLEG Organization [facility] Address Unknown Phone Unavailable Allergies, Adverse [...] unspecified site Sinusitis 473.9 Active Griselda Horvath SERVICE ADMINISTRATOR Unspecified sinusitis (chronic) Eustachian tube dysfunction, right 381.81 Active Margarito Kelley MD Dysfunction of Eustachian tube Pharyngitis-Acute 462 Active Daniele Mcfadden DO Acute pharyngitis URI 465.9 Active Griselda Horvath SERVICE ADMINISTRATOR Acute upper respiratory infections of unspecified site [...] Generic Name NDC Status Provider Patient Instruction CEFDINIR 300 MG CAPS 1 po BID x 10 days CEFDINIR 61303272087 Active Jillina Frazell SERVICE ADMINISTRATOR Active MUCINEX D 60-600 MG NW60W-HMM 1 po BID PRN Congestion PSEUDOEPHEDRINE-GUAIFENESIN 23463222031 Active Jillina Frazell SERVICE ADMINISTRATOR Active PREDNISONE 20 MG TAB 2 tabs daily for 3 days, 1 tab daily for 3 days, 1/2 tab daily for 2 days PREDNISONE 43764350157 Active Jillina Frazell SERVICE ADMINISTRATOR Active FLUTICASONE PROPIONATE 50 MCG/ACT SUSP 1 to 2 sprays each nostril daily 03/20 FLUTICASONE PROPIONATE 84529093825 No Longer Active Jillina Frazell SERVICE ADMINISTRATOR Active GUAIFENESIN 600 MG [id number]-FLW 1 twice a day as needed for congestion GUAIFENESIN 85898438804 No Longer Active Jillina Frazell SERVICE ADMINISTRATOR Active CEFDINIR 300 MG CAPS by mouth twice a day CEFDINIR 81846969879 No Longer Active Jillina Frazell SERVICE ADMINISTRATOR Active PREDNISONE 20 MG TAB 1 tablet twice daily for 2 days, then 1 tablet once daily for 2 days PREDNISONE 26259921488 No Longer Active Jillina Frazell SERVICE ADMINISTRATOR Active PREDNISONE 20 MG TAB 2 tabs daily for 3 days, 1 tab daily for 3 days, 1/2 tab daily for 2 days PREDNISONE 45972698456 No Longer Active Margarito Kelley MD Active IRVING-D ALLERGY & CONGESTION JL56H-EUG 1 po bid FEXOFENADINE-PSEUDOEPHEDRINE SK87I-MNQ 28047481355 No Longer Active Margarito Kelley MD Active PREDNISONE 20 MG TAB 2 tabs daily for 3 days, 1 tab daily for 3 days, 1/2 tab daily for 2 days PREDNISONE 17914221935 No Longer Active Jillina Frazell SERVICE ADMINISTRATOR Active CEFDINIR 300 MG CAPS 1 cap by mouth twice a day CEFDINIR 74607289727 No Longer Active Candyina Alexandru ONTIVEROSN Active E-Z SPACER ERIBERTO use with proair inhalier every 4 times as need. SPACER/AERO-HOLDING CHAMBERS 21571719807 No Longer Active Ezekielllina Jiml SERVICE ADMINISTRATOR Active PROAIR HFA 108 (90 BASE) MCG/ACT AERS 2 puffs every 4 hours as needed 2014 ALBUTEROL SULFATE 09510558352 No Longer Active Ezekielllina Jiml SERVICE ADMINISTRATOR Active CEFTIN 500 MG TAB 1 tablet by mouth twice daily for ten days. CEFUROXIME AXETIL 43232944503 No Longer Active Griselda Horvath APRN Active PREDNISONE 20 MG TAB 2 tabs daily for 3 days, 1 tab daily for 3 days, 1/2 tab daily for 2 days PREDNISONE 27373237058 No Longer Active Margarito Kelley MD Active CEPHALEXIN 500 MG CAPS 1 tablet by mouth three times daily for ten days 06/25 CEPHALEXIN 68470704528 No Longer Active Renée Adames APRN Active MEDROL (MARY) 4 MG TABS 6 pills on day 1, 5 pills on day 2, 4 pills on day 3, 4 pills on day 4, 2 pills on day 5, 1 pill on day 6 METHYLPREDNISOLONE 34021906478 No Longer Active Annita Mejia MD PhD Active ZITHROMAX Z-MARY 250 MG TABS 2 today and then 1 daily for 4 days AZITHROMYCIN 19570385581 No Longer Active Annita Mejia MD PhD Active GUAIFENESIN-CODEINE 100-10 MG/5ML SYRP 5ml every 4 to 6 hours as needed for cough GUAIFENESIN-CODEINE 46705890712 No Longer Active Annita Mejia MD PhD Active FLONASE 50 MCG/ACT SUSP 1 spray each nostril am and hs FLUTICASONE PROPIONATE 21575629391 No Longer Active Kendell Coronado MD Active MELOXICAM 15 MG TABS 1 po q day for pain with food MELOXICAM 73650025988 No Longer Active Kendell Coronado MD Active HYDROCODONE-ACETAMINOPHEN 5-325 MG TABS 1-2 q 4-6 hrs prn pain 20 tabs 07/04 HYDROCODONE-ACETAMINOPHEN 24752722162 No Longer Active Daniele Mcfadden DO Active PREDNISONE 20 MG TAB 1 tablet twice daily for 2 days, then 1 tablet once daily for 2 days PREDNISONE 06323013737 No Longer Active Daniele Mcfadden DO Active PREDNISONE 20 MG TAB 1 po bid 2 days, then daily for 2 days 12/27 PREDNISONE 82455634908 No Longer Active Alexander LOPEZ Active AZITHROMYCIN 250 MG TABS 2 po qd x 1 day, then 1 po qd x 4 days AZITHROMYCIN 63867653491 No Longer Active Daniele Mcfadden DO Active MUCINEX MAXIMUM STRENGTH KG48Z-IFG 1 po qd GUAIFENESIN XR12H- TAB 29859360248 No Longer Active Daniele Mcfadden DO Active AZITHROMYCIN 250 MG TABS 2 po qd x 1 day, then 1 po qd x 4 days AZITHROMYCIN 03243464996 No Longer Active Margarito Kelley MD Active MUCINEX MAXIMUM STRENGTH FA01G-HWA 1 po qd MUCINEX MAXIMUM STRENGTH AM91R-GTJ GUAIFENESIN KY94D-ZSE Inactive PREDNISONE 20 MG TAB 1 po bid 2 days, then daily for 2 days 12/27 PREDNISONE 20 MG TAB 805223 PREDNISONE Inactive PREDNISONE 20 MG TAB 1 tablet twice daily for 2 days, then 1 tablet once daily for 2 days PREDNISONE 20 MG TAB 796116 PREDNISONE Inactive HYDROCODONE-ACETAMINOPHEN 5-325 MG TABS 1-2 q 4-6 hrs prn pain 20 tabs 07/04 HYDROCODONE-ACETAMINOPHEN 5-325 MG TABS 077055 HYDROCODONE- ACETAMINOPHEN Inactive MELOXICAM 15 MG TABS 1 po q day for pain with food MELOXICAM 15 MG TABS 102026 MELOXICAM Inactive FLONASE 50 MCG/ACT SUSP 1 spray each nostril am and hs FLONASE 50 MCG/ACT SUSP FLUTICASONE PROPIONATE Inactive GUAIFENESIN-CODEINE 100-10 MG/5ML SYRP 5ml every 4 to 6 hours as needed for cough GUAIFENESIN-CODEINE 100-10 MG/5ML SYRP 572876 GUAIFENESIN-CODEINE Inactive ZITHROMAX Z-MARY 250 MG TABS 2 today and then 1 daily for 4 days ZITHROMAX Z-MARY 250 MG TABS 6786492 AZITHROMYCIN Inactive CEFTIN 500 MG TAB 1 tablet by mouth twice daily for ten days. CEFTIN 500 MG TAB 870508 CEFUROXIME AXETIL Inactive PROAIR HFA 108 (90 BASE) MCG/ACT AERS 2 puffs every 4 hours as needed 2014 PROAIR HFA 108 (90 BASE) MCG/ACT AERS ALBUTEROL SULFATE Inactive E-Z SPACER ERIBERTO use with proair inhalier every 4 times as need. E-Z SPACER ERIBERTO SPACER/AERO-HOLDING CHAMBERS Inactive IRVING-D ALLERGY & CONGESTION UP40K-SGS 1 po bid IRVING-D ALLERGY & CONGESTION PP56L-MJC FEXOFENADINE-PSEUDOEPHEDRINE XR12H- TAB Inactive PREDNISONE 20 MG TAB 1 tablet twice daily for 2 days, then 1 tablet once daily for 2 days PREDNISONE 20 MG TAB 324603 PREDNISONE Inactive GUAIFENESIN 600 MG XD62K-EON 1 twice a day as needed for congestion GUAIFENESIN 600 MG SF75G-MUF GUAIFENESIN Inactive FLUTICASONE PROPIONATE 50 MCG/ACT SUSP 1 to 2 sprays each nostril daily 03/20 FLUTICASONE PROPIONATE 50 MCG/ACT SUSP 7136635 FLUTICASONE PROPIONATE Inactive AZITHROMYCIN 250 MG TABS 2 po qd x 1 day, then 1 po qd x 4 days AZITHROMYCIN 250 MG TABS 0679800 AZITHROMYCIN Inactive AZITHROMYCIN 250 MG TABS 2 po qd x 1 day, then 1 po qd x 4 days AZITHROMYCIN 250 MG TABS 3742778 AZITHROMYCIN Inactive MEDROL (MARY) 4 MG TABS 6 pills on day 1, 5 pills on day 2, 4 pills on day 3, 4 pills on day 4, 2 pills on day 5, 1 pill on day 6 MEDROL (MARY) 4 MG TABS 539488 METHYLPREDNISOLONE Inactive CEPHALEXIN 500 MG CAPS 1 tablet by mouth three times daily for ten days 06/25 CEPHALEXIN 500 MG CAPS 655894 CEPHALEXIN Inactive PREDNISONE 20 MG TAB 2 tabs daily for 3 days, 1 tab daily for 3 days, 1/2 tab daily for 2 days PREDNISONE 20 MG TAB 413657 PREDNISONE Inactive CEFDINIR 300 MG CAPS 1 cap by mouth twice a day CEFDINIR 300 MG CAPS 492034 CEFDINIR Inactive PREDNISONE 20 MG TAB 2 tabs daily for 3 days, 1 tab daily for 3 days, 1/2 tab daily for 2 days PREDNISONE 20 MG TAB 095326 PREDNISONE Inactive PREDNISONE 20 MG TAB 2 tabs daily for 3 days, 1 tab daily for 3 days, 1/2 tab daily for 2 days PREDNISONE 20 MG TAB 445147 PREDNISONE Inactive CEFDINIR 300 MG CAPS by mouth twice a day CEFDINIR 300 MG CAPS 346335 CEFDINIR Inactive Immunizations Vaccine Administration Date Value Standard Description Human Papillomavirus vaccine (Gardasil) #2, (HPV #2) Gardasil [ CVX62] human papilloma virus vaccine, quadrivalent Seasonal influenza vaccine, injectable, containing preservative, for > 3 years old (Afluria, FluLaval, Fluzone, Fluvirin, Fluarix, Agriflu(>=18 yo)) Fluzone (>3 yrs.) [VOJ527] Influenza, seasonal, injectable Human Papillomavirus Vaccine (Gardasil) #1 Given (HPV #1) Gardasil [CVX62] human papilloma virus vaccine, quadrivalent hepatitis A immunization #2 Havrix-Pedi hepatitis A vaccine, unspecified formulation Boostrix (Tetanus toxoid, reduced diphtheria toxoid and acellular pertussis vaccine, adsorbed), booster Boostrix [QND484] tetanus toxoid, reduced diphtheria toxoid, and acellular [...] E&M - 3141-9 198.5 [lb_av] Weight Measured Diagnostic Results Date Name Value Unit Range Description Lab Report: Rapid Strep - Lab Microbial identification kit, rapid strep method Negative-Throat Culture to Follow Negative Encounters Code Encounter Date Provider Facility CPT-17438 Level 3 Est. Patient 09:05:19 CADDYMASTER Griselda Horvath [facility] CPT-72227 Level 3 Est. Patient 15:45:46 CDT Griselda Horvath [facility] CPT-00188 Level 3 Est. Patient 14:15:52 CDT Daniele W [facility] CPT-39405 Level 3 Est. Patient 13:57:19 CADDYMASTER Margarito Kelley MD [facility] CPT-90640 Level 3 Est. Patient 09:16:05 CADDYMASTER Margarito Kelley MD [facility] CPT-60763 Level 3 Est. Patient 15:37:06 CADDYMASTER Daniele Mcfadden [facility] CPT-63832 Level 3 Est. Patient 11:56:34 CADDYMASTER Renée Adames APRN [facility] CPT-18866 Level 3 Est. Patient 12:19:42 CDT Daniele Mcfadden [facility] CPT-26860 Level 3 Est. Patient 11:08:45 CDT Annita Mejia MD [facility] CPT-84734 Level 3 Est. Patient 12:00:17 CDT Kendell Coronado MD [facility] CPT-93630 Level 3 Est. Patient 12:27:25 CDT Daniele Mcfadden [facility] CPT-63263 Level 3 Est. Patient 18:45:11 CADDYMASTER Daniele Mcfadden [facility] CPT-95335 Level 3 Est. Patient 10:12:24 CADDYMASTER Daniele Mcfadden [facility] CPT-29400 Level 3 Est. Patient 14:35:11 CADDYMASTER Daniele Mcfadden [facility] CPT-16546 Level 3 Est. Patient 14:11:04 CDT Daniele Mcfadden [facility] CPT-01555 Level 3 Est. Patient 10:52:13 CDT Alexander LOPEZ [facility] CPT-64380 Level 3 Est. Patient 11:01:08 CADDYMASTER Daniele Mcfadden [facility] CPT-69807 Level 3 Est. Patient 10:55:35 CDT Daniele Mcfadden [facility] [address] [facility] CPT-93799 Level 3 Est. Patient 14:03:08 CDT Daniele Mcfadden [facility] CPT-58876 Level 3 Est. Patient 11:26:19 CDT Margarito Kelley MD [facility] CPT-92284 Level 2 Est. Patient 15:32:04 CADDYMASTER Daniele Mcfadden [facility] CPT-64530 Level 3 Est. Patient 16:01:26 CADDYMASTER Daniele Mcfadden [facility] CPT-80111 Level 3 Est. Patient 06:37:10 CADDYMASTER Daniele Mcfadden [facility] Procedures Code Procedure Name Date Entry Date Standard Description CPT-21615 Rapid Strep (Grp A) - LAB USE ONLY 13:06:06 CDT CPT-79672 Abd compl w upright 12:34:39 CDT CPT-83533 Immunization Single Admin 11:38:41 CDT CPT-18560 Fluzone Quadrivalent Intramuscular Suspension 0.5 ML 11: 38:41 CDT CPT-OV Office Visit 14:45:12 CADDYMASTER CPT-11489 [employer] all organs plus proximal aorta and distal IVC 2012 12:13:02 CADDYMASTER CPT-31485 Abd compl w upright 15:12:58 CADDYMASTER CPT-15290 Venipuncture Draw Fee 14:38:32 CADDYMASTER CPT-70319 Administration single or combination vaccine inc oral 17 :10:04 CDT CPT-02905 Gardasil 17:10:04 CDT CPT-78067 Venipuncture Draw Fee 16:07:54 CADDYMASTER CPT-74998 Administration 2+ single or combination vaccines inc oral 17:22:02 CDT CPT-10925 Administration single or combination vaccine inc oral 17 :22:02 CDT CPT-26205 Influenza split virus > age 3 17:22:02 CDT CPT-31524 Gardasil 17:22:02 CDT CPT-67888 Administration 2+ single or combination vaccines inc oral 14:38:31 CDT CPT-11966 Administration single or combination vaccine inc oral 14 :38:31 CDT CPT-09582 Meningococcal Conjugate Vacine (Menactra) 14:38:31 CDT CPT-43245 Gardasil 14:38:31 CDT
--- OUTSIDE RECORDS SUMMARY | 2018-02-15 06:32 | XMS REPORT | Clinical Summary ---
Author Author Admin, OLEG Organization [employer] Address Unknown Phone Unavailable Allergies, Adverse Reactions, [...] unspecified site Sinusitis 473.9 Active Griselda Horvath [employer] Unspecified sinusitis (chronic) Eustachian tube dysfunction, right 381.81 Active Margarito Kelley MD Dysfunction of Eustachian tube Pharyngitis-Acute 462 Active Daniele Mcfadden DO Acute pharyngitis URI 465.9 Active Griselda Horvath [employer] Acute upper respiratory infections of unspecified site Allergic rhinitis 477.9 Active Jessika Nunes [employer] Allergic rhinitis, cause unspecified Acute rhinosinusitis 461.9 Active Jessika Nunes [employer] Acute sinusitis, unspecified CONCUSSION WITH LOC OF 30 MINUTES OR LESS ICD-850.11 Inactive Margarito Kelley MD COSTOCHONDRITIS, ACUTE ICD-733.6 Inactive Errol Pack MD KNEE PAIN, RIGHT ICD-719.46 Inactive Errol Pack MD ATHLETIC PHYSICAL, NORMAL ICD-V70.3 Inactive Errol Pack MD MUSCLE RUPTURE, NONTRAUMATIC ICD-728.83 Inactive Errol Pack MD Abdominal pain ICD-789.00 Inactive Errol Pack MD U R I ICD-465.9 Inactive Daniele Mcfadden DO BRONCHITIS, ACUTE ICD-466.0 Inactive Errol Pack MD ALLERGIC RHINITIS ICD-477.9 Inactive Errol Pack MD Abdominal pain ICD-789.00 Inactive Kendell Coronado MD Ankle sprain ICD-845.00 Inactive Kendell Coronado MD Fatigue ICD-780.79 Inactive Margarito Kelley MD [...] Provider Patient Instruction MUCINEX D 60-600 MG [id number] 1 po BID PRN Congestion PSEUDOEPHEDRINE-GUAIFENESIN [id number] No Longer Active Jessika Banner [employer] Active CEFDINIR 300 MG CAPS 1 po BID x 10 days CEFDINIR 48824594782 No Longer Active Jillina Frazell [employer] Active PREDNISONE 20 MG TAB 2 tabs daily for 3 days, 1 tab daily for 3 days, 1/2 tab daily for 2 days PREDNISONE 19329920955 No Longer Active Jillina Frazell [employer] Active FLUTICASONE PROPIONATE 50 MCG/ACT SUSP 1 to 2 sprays each nostril daily 03/20 FLUTICASONE PROPIONATE 87469298211 No Longer Active Jillina Frazell [employer] Active GUAIFENESIN 600 MG [id number] 1 twice a day as needed for congestion GUAIFENESIN 25523992871 No Longer Active Jillina Frazell [employer] Active CEFDINIR 300 MG CAPS by mouth twice a day CEFDINIR 94814623987 No Longer Active Jillina Frazell [employer] Active PREDNISONE 20 MG TAB 1 tablet twice daily for 2 days, then 1 tablet once daily for 2 days PREDNISONE 43243213650 No Longer Active Jillina Frazell [employer] Active PREDNISONE 20 MG TAB 2 tabs daily for 3 days, 1 tab daily for 3 days, 1/2 tab daily for 2 days PREDNISONE 01936207990 No Longer Active Margarito Kelley MD Active IRVING-D ALLERGY & CONGESTION [id number] 1 po bid FEXOFENADINE-PSEUDOEPHEDRINE [id number] 09369398562 No Longer Active Margarito Kelley MD Active PREDNISONE 20 MG TAB 2 tabs daily for 3 days, 1 tab daily for 3 days, 1/2 tab daily for 2 days PREDNISONE 06657439371 No Longer Active Jillina Frazell [employer] Active CEFDINIR 300 MG CAPS 1 cap by mouth twice a day CEFDINIR 73178264226 No Longer Active Jillina Frazell [employer] Active E-Z SPACER ERIBERTO use with proair inhalier every 4 times as need. SPACER/AERO-HOLDING CHAMBERS 49894703368 No Longer Active Jillina Frazell [employer] Active PROAIR HFA 108 (90 BASE) MCG/ACT AERS 2 puffs every 4 hours as needed 2014 ALBUTEROL SULFATE 88200526065 No Longer Active Jillina Frazell [employer] Active CEFTIN 500 MG TAB 1 tablet by mouth twice daily for ten days. CEFUROXIME AXETIL 02435041372 No Longer Active Ezekielllina Framarkl [employer] Active PREDNISONE 20 MG TAB 2 tabs daily for 3 days, 1 tab daily for 3 days, 1/2 tab daily for 2 days PREDNISONE 75588285906 No Longer Active Margarito Kelley MD Active CEPHALEXIN 500 MG CAPS 1 tablet by mouth three times daily for ten days 06/25 CEPHALEXIN 15112541087 No Longer Active Renée Adames APRN Active MEDROL (MARY) 4 MG TABS 6 pills on day 1, 5 pills on day 2, 4 pills on day 3, 4 pills on day 4, 2 pills on day 5, 1 pill on day 6 METHYLPREDNISOLONE 06763459658 No Longer Active Annita Mejia MD PhD Active ZITHROMAX Z-MARY 250 MG TABS 2 today and then 1 daily for 4 days AZITHROMYCIN 04323882200 No Longer Active Annita Mejia MD PhD Active GUAIFENESIN-CODEINE 100-10 MG/5ML SYRP 5ml every 4 to 6 hours as needed for cough GUAIFENESIN-CODEINE 74322215244 No Longer Active Annita Mejia MD PhD Active FLONASE 50 MCG/ACT SUSP 1 spray each nostril am and hs FLUTICASONE PROPIONATE 86494476123 No Longer Active Kendell Coronado MD Active MELOXICAM 15 MG TABS 1 po q day for pain with food MELOXICAM 77402178330 No Longer Active Kendell Coronado MD Active HYDROCODONE-ACETAMINOPHEN 5-325 MG TABS 1-2 q 4-6 hrs prn pain 20 tabs 07/04 HYDROCODONE-ACETAMINOPHEN 77839091404 No Longer Active Daniele Mcfadden DO Active PREDNISONE 20 MG TAB 1 tablet twice daily for 2 days, then 1 tablet once daily for 2 days PREDNISONE 45174257474 No Longer Active Daniele Mcfadden DO Active PREDNISONE 20 MG TAB 1 po bid 2 days, then daily for 2 days 12/27 PREDNISONE 30067351950 No Longer Active Alexander LOPEZ Active AZITHROMYCIN 250 MG TABS 2 po qd x 1 day, then 1 po qd x 4 days AZITHROMYCIN 51208051810 No Longer Active Daniele Mcfadden DO Active MUCINEX MAXIMUM STRENGTH [id number]-SBI 1 po qd GUAIFENESIN XR12H- TAB 30370399644 No Longer Active Daniele Mcfadden DO Active AZITHROMYCIN 250 MG TABS 2 po qd x 1 day, then 1 po qd x 4 days AZITHROMYCIN 70497612400 No Longer Active Margarito Kelley MD Active MUCINEX MAXIMUM STRENGTH [id number] 1 po qd MUCINEX MAXIMUM STRENGTH [id number]-BXV GUAIFENESIN [id number] Inactive PREDNISONE 20 MG TAB 1 po bid 2 days, then daily for 2 days 12/27 PREDNISONE 20 MG TAB 640457 PREDNISONE Inactive PREDNISONE 20 MG TAB 1 tablet twice daily for 2 days, then 1 tablet once daily for 2 days PREDNISONE 20 MG TAB 644487 PREDNISONE Inactive HYDROCODONE-ACETAMINOPHEN 5-325 MG TABS 1-2 q 4-6 hrs prn pain 20 tabs 07/04 HYDROCODONE-ACETAMINOPHEN 5-325 MG TABS 673456 HYDROCODONE- ACETAMINOPHEN Inactive MELOXICAM 15 MG TABS 1 po q day for pain with food MELOXICAM 15 MG TABS 704181 MELOXICAM Inactive FLONASE 50 MCG/ACT SUSP 1 spray each nostril am and hs FLONASE 50 MCG/ACT SUSP FLUTICASONE PROPIONATE Inactive GUAIFENESIN-CODEINE 100-10 MG/5ML SYRP 5ml every 4 to 6 hours as needed for cough GUAIFENESIN-CODEINE 100-10 MG/5ML SYRP 293838 GUAIFENESIN-CODEINE Inactive ZITHROMAX Z-MARY 250 MG TABS 2 today and then 1 daily for 4 days ZITHROMAX Z-MARY 250 MG TABS 0534435 AZITHROMYCIN Inactive CEFTIN 500 MG TAB 1 tablet by mouth twice daily for ten days. CEFTIN 500 MG TAB 920709 CEFUROXIME AXETIL Inactive PROAIR HFA 108 (90 BASE) MCG/ACT AERS 2 puffs every 4 hours as needed 2014 PROAIR HFA 108 (90 BASE) MCG/ACT AERS ALBUTEROL SULFATE Inactive E-Z SPACER ERIBERTO use with proair inhalier every 4 times as need. E-Z SPACER ERIBERTO SPACER/AERO-HOLDING CHAMBERS Inactive IRVING-D ALLERGY & CONGESTION [id number] 1 po bid IRVING-D ALLERGY & CONGESTION [id number] FEXOFENADINE-PSEUDOEPHEDRINE XR12H- TAB Inactive PREDNISONE 20 MG TAB 1 tablet twice daily for 2 days, then 1 tablet once daily for 2 days PREDNISONE 20 MG TAB 002618 PREDNISONE Inactive GUAIFENESIN 600 MG [id number] 1 twice a day as needed for congestion GUAIFENESIN 600 MG [id number]-DAD GUAIFENESIN Inactive FLUTICASONE PROPIONATE 50 MCG/ACT SUSP 1 to 2 sprays each nostril daily 03/20 FLUTICASONE PROPIONATE 50 MCG/ACT SUSP 0633818 FLUTICASONE PROPIONATE Inactive MUCINEX D 60-600 MG [id number]-XVQ 1 po BID PRN Congestion MUCINEX D 60-600 MG [id number] PSEUDOEPHEDRINE-GUAIFENESIN Inactive AZITHROMYCIN 250 MG TABS 2 po qd x 1 day, then 1 po qd x 4 days AZITHROMYCIN 250 MG TABS 9549020 AZITHROMYCIN Inactive AZITHROMYCIN 250 MG TABS 2 po qd x 1 day, then 1 po qd x 4 days AZITHROMYCIN 250 MG TABS 8393319 AZITHROMYCIN Inactive MEDROL (MARY) 4 MG TABS 6 pills on day 1, 5 pills on day 2, 4 pills on day 3, 4 pills on day 4, 2 pills on day 5, 1 pill on day 6 MEDROL (MARY) 4 MG TABS 530838 METHYLPREDNISOLONE Inactive CEPHALEXIN 500 MG CAPS 1 tablet by mouth three times daily for ten days 06/25 CEPHALEXIN 500 MG CAPS 550368 CEPHALEXIN Inactive PREDNISONE 20 MG TAB 2 tabs daily for 3 days, 1 tab daily for 3 days, 1/2 tab daily for 2 days PREDNISONE 20 MG TAB 191840 PREDNISONE Inactive CEFDINIR 300 MG CAPS 1 cap by mouth twice a day CEFDINIR 300 MG CAPS 234856 CEFDINIR Inactive PREDNISONE 20 MG TAB 2 tabs daily for 3 days, 1 tab daily for 3 days, 1/2 tab daily for 2 days PREDNISONE 20 MG TAB 360443 PREDNISONE Inactive PREDNISONE 20 MG TAB 2 tabs daily for 3 days, 1 tab daily for 3 days, 1/2 tab daily for 2 days PREDNISONE 20 MG TAB 872946 PREDNISONE Inactive CEFDINIR 300 MG CAPS by mouth twice a day CEFDINIR 300 MG CAPS 309668 CEFDINIR Inactive PREDNISONE 20 MG TAB 2 tabs daily for 3 days, 1 tab daily for 3 days, 1/2 tab daily for 2 days PREDNISONE 20 MG TAB 119275 PREDNISONE Inactive CEFDINIR 300 MG CAPS 1 po BID x 10 days CEFDINIR 300 MG CAPS 597426 CEFDINIR Inactive Immunizations Vaccine Administration Date Value Standard Description Human Papillomavirus vaccine (Gardasil) #2, (HPV #2) Gardasil [ CVX62] human papilloma virus vaccine, quadrivalent Seasonal influenza vaccine, injectable, containing preservative, for > 3 years old (Afluria, FluLaval, Fluzone, Fluvirin, Fluarix, Agriflu(>=18 yo)) Fluzone (>3 yrs.) [[id number]] Influenza, seasonal, injectable Human Papillomavirus Vaccine (Gardasil) #1 Given (HPV #1) Gardasil [CVX62] human papilloma virus vaccine, quadrivalent hepatitis A immunization #2 Havrix-Pedi hepatitis A vaccine, unspecified formulation Boostrix (Tetanus toxoid, reduced diphtheria toxoid and acellular pertussis vaccine, adsorbed), booster Boostrix [[id number]] tetanus toxoid, reduced diphtheria toxoid, and acellular [...] Negative Encounters Code Encounter Date Provider Facility CPT-70133 Level 3 Est. Patient 08:43:59 [employer] Jessika Nunes [facility] CPT-54809 Level 3 Est. Patient 09:05:19 [employer]REL [employer] Griselda Horvath [facility] CPT-26508 Level 3 Est. Patient 15:45:46 CDT Griselda Horvath [facility] CPT-67811 Level 3 Est. Patient 14:15:52 CDT Daniele Mcfadden [facility] CPT-35145 Level 3 Est. Patient 13:57:19 BARREL [employer]TER Margarito Kelley MD [facility] CPT-36915 Level 3 Est. Patient 09:16:05 [employer]REL [employer]TER Margarito Kelley MD [facility] CPT-68120 Level 3 Est. Patient 15:37:06 [employer] Daniele Mcfadden [facility] CPT-33397 Level 3 Est. Patient 11:56:34 [employer]REL [employer]TER Renée Adames [facility] CPT-75957 Level 3 Est. Patient 12:19:42 CDT Daniele Mcfadden [facility] CPT-65504 Level 3 Est. Patient 11:08:45 CDT Annita Mejia MD [facility] CPT-69007 Level 3 Est. Patient 12:00:17 CDT Kendell Coronado MD [facility] CPT-59254 Level 3 Est. Patient 12:27:25 CDT Daniele Mcfadden [facility] CPT-70967 Level 3 Est. Patient 18:45:11 [employer] Daniele Mcfadden [facility] CPT-20689 Level 3 Est. Patient 10:12:24 [employer] Daniele Mcfadden [facility] CPT-03814 Level 3 Est. Patient 14:35:11 [employer] Daniele Mcfadden [facility] CPT-68171 Level 3 Est. Patient 14:11:04 CDT Daniele Mcfadden [facility] CPT-85254 Level 3 Est. Patient 10:52:13 CDT Alexander LOPEZ [facility] CPT-38400 Level 3 Est. Patient 11:01:08 [employer]REL [employer]TER Daniele Mcfadden [facility] CPT-16072 Level 3 Est. Patient 10:55:35 CDT Daniele Mcfadden [facility] CPT-67950 Level 3 Est. Patient 14:03:08 CDT Daniele Mcfadden [facility] CPT-57810 Level 3 Est. Patient 11:26:19 CDT Margarito Kelley MD [facility] CPT-18143 Level 2 Est. Patient 15:32:04 BARREL [employer]TER Daniele Mcfadden [facility] CPT-81565 Level 3 Est. Patient 16:01:26 [employer]TER Daniele Mcfadden [facility] CPT-62673 Level 3 Est. Patient 06:37:10 [employer] Daniele Mcfadden [facility] Procedures Code Procedure Name Date Entry Date Standard Description CPT-88795 Rapid Strep (Grp A) - LAB USE ONLY 13:06:06 CDT CPT-14583 Abd compl w upright 12:34:39 CDT CPT-70399 Immunization Single Admin 11:38:41 CDT CPT-22872 Fluzone Quadrivalent Intramuscular Suspension 0.5 ML 11: 38:41 CDT CPT-OV Office Visit 14:45:12 [employer] CPT-87117 [employer] all organs plus proximal aorta and distal IVC 2012 12:13:02 [employer] CPT-59576 Abd compl w upright 15:12:58 [employer] CPT-72245 Venipuncture Draw Fee 14:38:32 [employer] CPT-09203 Administration single or combination vaccine inc oral 17 :10:04 CDT CPT-10305 Gardasil 17:10:04 CDT CPT-24395 Venipuncture Draw Fee 16:07:54 [employer] CPT-24213 Administration 2+ single or combination vaccines inc oral 17:22:02 CDT CPT-25577 Administration single or combination vaccine inc oral 17 :22:02 CDT CPT-32244 Influenza split virus > age 3 17:22:02 CDT CPT-39307 Gardasil 17:22:02 CDT CPT-00935 Administration 2+ single or combination vaccines inc oral 14:38:31 CDT CPT-22410 Administration single or combination vaccine inc oral 14 :38:31 CDT CPT-66564 Meningococcal Conjugate Vacine (Menactra) 14:38:31 CDT CPT-84577 Gardasil 14:38:31 CDT
--- OUTSIDE RECORDS SUMMARY | 2018-02-15 06:33 | XMS REPORT | Clinical Summary ---
Author Author Admin, [facility] Organization [employer] Address Unknown Phone Unavailable Allergies, Adverse Reactions, [...] MD Biliary dyskinesia ICD-575.8 Inactive Katie Gipson HEALTH EVALUATOR U R I ICD-465.9 Inactive Daniele Mcfadden [...] tube dysfunction, right ICD-381.81 Inactive Katie Gipson HEALTH EVALUATOR Pharyngitis-Acute ICD-462 Inactive Katie Gipson HEALTH EVALUATOR URI ICD-465.9 Inactive Katie Gipson HEALTH EVALUATOR Allergic rhinitis ICD-477.9 Inactive Katie Gipson HEALTH EVALUATOR Acute rhinosinusitis ICD-461.9 Inactive Katie Gipson LPN [...] today, then 1 tab tomorrow 08/30 PREDNISONE [id number] No Longer Active Daniele Mcfadden DO Active FLUTICASONE PROPIONATE 50 MCG/ACT NASAL SUSPENSION 1 spray each nostril twice daily until bottle empty FLUTICASONE PROPIONATE 67392571565 Active Daniele Mcfadden DO Active PREDNISONE 10 MG ORAL TABLET 2 TABS BY MOUTH TODAY, THEN 1 TAB BY MOUTH DAYS 2 -5 PREDNISONE 71192386842 No Longer Active Daniele Mcfadden DO Active PREDNISONE 20 MG ORAL TABLET two tabs by mouth today, then one tab by mouth days two and three PREDNISONE 57457887195 No Longer Active Whitley Hernandez Active AZITHROMYCIN 250 MG ORAL TABLET 2 po qd x 1 day, then 1 po qd x 4 days 07/24 AZITHROMYCIN 32830002789 No Longer Active Daniele Mcfadden DO Active IRVING-D ALLERGY & CONGESTION 60-120 MG ORAL TABLET EXTENDED RELEASE 12 HOUR 1 tablet twice daily as needed for congestion/allergies FEXOFENADINE-PSEUDOEPHEDRINE 44541142050 Active Holly Sharma Active PREDNISONE 20 MG ORAL TABLET 2 tabs daily for 3 days, 1 tab daily for 3 days, 1/2 tab daily for 2 days start tomorrow 07/31/16 PREDNISONE 36995608298 No Longer Active Jillina Frazell FLAT BED OPERATOR Active AZITHROMYCIN 250 MG ORAL TABLET 2 po qd x 1 day, then 1 po qd x 4 days 08/30 AZITHROMYCIN 73678162524 No Longer Active Jillina Jiml FLAT BED OPERATOR Active MUCINEX D 60-600 MG ORAL TABLET EXTENDED RELEASE 12 HOUR 1 po BID PRN Congestion PSEUDOEPHEDRINE-GUAIFENESIN 23130130503 No Longer Active Jessika Nunes APRN Active CEFDINIR 300 MG ORAL CAPSULE 1 po BID x 10 days CEFDINIR 41829642529 No Longer Active Ezekielllina Alexandru FLAT BED OPERATOR Active PREDNISONE 20 MG ORAL TABLET 2 tabs daily for 3 days, 1 tab daily for 3 days, 1/2 tab daily for 2 days PREDNISONE 52177646331 No Longer Active Ezekielllina Jiml FLAT BED OPERATOR Active FLUTICASONE PROPIONATE 50 MCG/ACT NASAL SUSPENSION 1 to 2 sprays each nostril daily FLUTICASONE PROPIONATE 59981746384 No Longer Active Ezekielllina Alexandru FLAT BED OPERATOR Active GUAIFENESIN ER 600 MG ORAL TABLET EXTENDED RELEASE 12 HOUR 1 twice a day as needed for congestion GUAIFENESIN 90341515525 No Longer Active Ezekielllina Alexandru FLAT BED OPERATOR Active CEFDINIR 300 MG ORAL CAPSULE by mouth twice a day CEFDINIR 42855458978 No Longer Active Ezekielllina Alexandru ONTIVEROSN Active PREDNISONE 20 MG ORAL TABLET 1 tablet twice daily for 2 days, then 1 tablet once daily for 2 days PREDNISONE 79214300606 No Longer Active Jillina Jiml FLAT BED OPERATOR Active PREDNISONE 20 MG ORAL TABLET 2 tabs daily for 3 days, 1 tab daily for 3 days, 1/2 tab daily for 2 days PREDNISONE 61084152592 No Longer Active Margarito Kelley MD Active IRVING-D ALLERGY & CONGESTION TABLET EXTENDED RELEASE 12 HOUR 1 po bid 05/26 FEXOFENADINE-PSEUDOEPHEDRINE [id number] 36626958984 No Longer Active Margarito Kelley MD Active PREDNISONE 20 MG ORAL TABLET 2 tabs daily for 3 days, 1 tab daily for 3 days, 1/2 tab daily for 2 days PREDNISONE 19507600533 No Longer Active Ezekielllina Fratracey JOHNSON Active CEFDINIR 300 MG ORAL CAPSULE 1 cap by mouth twice a day CEFDINIR 92785000675 No Longer Active Jillina Frazell FLAT BED OPERATOR Active E-Z SPACER DEVICE use with proair inhalier every 4 times as need. SPACER/AERO-HOLDING CHAMBERS 35476121729 No Longer Active Jillina Framarkl ALEX Active PROAIR HFA 108 (90 Base) MCG/ACT INHALATION AEROSOL SOLUTION 2 puffs every 4 hours as needed ALBUTEROL SULFATE 33839297002 No Longer Active Ezekielllsd Fernandezl FLAT BED OPERATOR Active CEFTIN 500 MG ORAL TABLET 1 tablet by mouth twice daily for ten days. CEFUROXIME AXETIL 24424563582 No Longer Active Griselda Horvath APRN Active PREDNISONE 20 MG ORAL TABLET 2 tabs daily for 3 days, 1 tab daily for 3 days, 1/2 tab daily for 2 days PREDNISONE 16858820041 No Longer Active Margarito Kelley MD Active CEPHALEXIN 500 MG ORAL CAPSULE 1 tablet by mouth three times daily for ten days CEPHALEXIN 23046390585 No Longer Active Renée Adames APRN Active MEDROL 4 MG ORAL TABLET THERAPY PACK 6 pills on day 1, 5 pills on day 2, 4 pills on day 3, 4 pills on day 4, 2 pills on day 5, 1 pill on day 6 METHYLPREDNISOLONE 06358069433 No Longer Active Annita Mejia MD PhD Active ZITHROMAX Z-MARY 250 MG ORAL TABLET 2 today and then 1 daily for 4 days 03/11 AZITHROMYCIN 85359051736 No Longer Active Annita Mejia MD PhD Active GUAIFENESIN-CODEINE 100-10 MG/5ML ORAL SYRUP 5ml every 4 to 6 hours as needed for cough GUAIFENESIN-CODEINE 17145446007 No Longer Active Annita Mejia MD PhD Active FLONASE 50 MCG/ACT NASAL SUSPENSION 1 spray each nostril am and hs FLUTICASONE PROPIONATE 32437135649 No Longer Active Kendell Coronado MD Active MELOXICAM 15 MG ORAL TABLET 1 po q day for pain with food MELOXICAM 59451614614 No Longer Active Kendell Coronado MD Active HYDROCODONE-ACETAMINOPHEN 5-325 MG ORAL TABLET 1-2 q 4-6 hrs prn pain 20 tabs HYDROCODONE-ACETAMINOPHEN 35475080153 No Longer Active Daniele Mcfadden DO Active PREDNISONE 20 MG ORAL TABLET 1 tablet twice daily for 2 days, then 1 tablet once daily for 2 days PREDNISONE 82911510116 No Longer Active Daniele Mcfadden DO Active PREDNISONE 20 MG ORAL TABLET 1 po bid 2 days, then daily for 2 days PREDNISONE 56101360929 No Longer Active Alexander LOPEZ Active AZITHROMYCIN 250 MG ORAL TABLET 2 po qd x 1 day, then 1 po qd x 4 days 08/05 AZITHROMYCIN 52725342066 No Longer Active Daniele Mcfadden DO Active MUCINEX MAXIMUM STRENGTH TABLET EXTENDED RELEASE 12 HOUR 1 po qd GUAIFENESIN [id number] 12832484398 No Longer Active Daniele Mcfadden DO Active AZITHROMYCIN 250 MG ORAL TABLET 2 po qd x 1 day, then 1 po qd x 4 days 11/26 AZITHROMYCIN 71998575612 No Longer Active Margarito Kelley MD Active MUCINEX MAXIMUM STRENGTH TABLET EXTENDED RELEASE 12 HOUR 1 po qd MUCINEX MAXIMUM STRENGTH TABLET EXTENDED RELEASE 12 HOUR GUAIFENESIN [id number] Inactive PREDNISONE 20 MG ORAL TABLET 1 po bid 2 days, then daily for 2 days PREDNISONE 20 MG ORAL TABLET 926587 PREDNISONE Inactive PREDNISONE 20 MG ORAL TABLET 1 tablet twice daily for 2 days, then 1 tablet once daily for 2 days PREDNISONE 20 MG ORAL TABLET 188104 PREDNISONE Inactive HYDROCODONE-ACETAMINOPHEN 5-325 MG ORAL TABLET 1-2 q 4-6 hrs prn pain 20 tabs HYDROCODONE-ACETAMINOPHEN 5-325 MG ORAL TABLET 204642 HYDROCODONE-ACETAMINOPHEN Inactive MELOXICAM 15 MG ORAL TABLET 1 po q day for pain with food MELOXICAM 15 MG ORAL TABLET 110128 MELOXICAM Inactive FLONASE 50 MCG/ACT NASAL SUSPENSION 1 spray each nostril am and hs FLONASE 50 MCG/ACT NASAL SUSPENSION 1358253 FLUTICASONE PROPIONATE Inactive GUAIFENESIN-CODEINE 100-10 MG/5ML ORAL SYRUP 5ml every 4 to 6 hours as needed for cough GUAIFENESIN-CODEINE 100-10 MG/5ML ORAL SYRUP 885044 GUAIFENESIN-CODEINE Inactive ZITHROMAX Z-MARY 250 MG ORAL TABLET 2 today and then 1 daily for 4 days 03/11 ZITHROMAX Z-MARY 250 MG ORAL TABLET 749431 AZITHROMYCIN Inactive CEFTIN 500 MG ORAL TABLET [...] CONGESTION TABLET EXTENDED RELEASE 12 HOUR FEXOFENADINE-PSEUDOEPHEDRINE [id number] Inactive PREDNISONE 20 MG ORAL TABLET 1 tablet twice daily for 2 days, then 1 tablet once daily for 2 days PREDNISONE 20 MG ORAL TABLET 833365 PREDNISONE Inactive GUAIFENESIN ER 600 MG ORAL TABLET EXTENDED RELEASE 12 HOUR 1 twice a day as needed for congestion GUAIFENESIN ER 600 MG ORAL TABLET EXTENDED RELEASE 12 HOUR GUAIFENESIN Inactive FLUTICASONE PROPIONATE 50 MCG/ACT NASAL SUSPENSION 1 to 2 sprays each nostril daily FLUTICASONE PROPIONATE 50 MCG/ACT NASAL SUSPENSION 0909090 FLUTICASONE PROPIONATE Inactive MUCINEX D 60-600 MG ORAL TABLET EXTENDED RELEASE 12 HOUR 1 po BID PRN Congestion MUCINEX D 60-600 MG ORAL TABLET EXTENDED RELEASE 12 HOUR PSEUDOEPHEDRINE-GUAIFENESIN Inactive PREDNISONE 20 MG ORAL TABLET two tabs by mouth today, then one tab by mouth days two and three PREDNISONE 20 MG ORAL TABLET 881525 PREDNISONE Inactive PREDNISONE 10 MG ORAL TABLET 2 TABS BY MOUTH TODAY, THEN 1 TAB BY MOUTH DAYS 2 -5 PREDNISONE 10 MG ORAL TABLET 718906 PREDNISONE Inactive PREDNISONE 20 MG ORAL TABLET 2 tabs by mouth today, then 1 tab tomorrow 08/30 PREDNISONE 20 MG ORAL TABLET 522023 PREDNISONE Inactive AZITHROMYCIN 250 MG ORAL TABLET 2 po qd x 1 day, then 1 po qd x 4 days 11/26 AZITHROMYCIN 250 MG ORAL TABLET 559136 AZITHROMYCIN Inactive AZITHROMYCIN 250 MG ORAL TABLET 2 po qd x 1 day, then 1 po qd x 4 days 08/05 AZITHROMYCIN 250 MG ORAL TABLET 911626 AZITHROMYCIN Inactive MEDROL 4 MG ORAL TABLET THERAPY PACK 6 pills on day 1, 5 pills on day 2, 4 pills on day 3, 4 pills on day 4, 2 pills on day 5, 1 pill on day 6 MEDROL 4 MG ORAL TABLET THERAPY PACK 355836 METHYLPREDNISOLONE Inactive CEPHALEXIN 500 MG ORAL CAPSULE 1 tablet by mouth three times daily for ten days CEPHALEXIN 500 MG ORAL CAPSULE 263129 CEPHALEXIN Inactive PREDNISONE 20 MG ORAL TABLET 2 tabs daily for 3 days, 1 tab daily for 3 days, 1/2 tab daily for 2 days PREDNISONE 20 MG ORAL TABLET 335644 PREDNISONE Inactive CEFDINIR 300 MG ORAL CAPSULE 1 cap by mouth twice a day CEFDINIR 300 MG ORAL CAPSULE 752499 CEFDINIR Inactive PREDNISONE 20 MG ORAL TABLET 2 tabs daily for 3 days, 1 tab daily for 3 days, 1/2 tab daily for 2 days PREDNISONE 20 MG ORAL TABLET 976572 PREDNISONE Inactive PREDNISONE 20 MG ORAL TABLET 2 tabs daily for 3 days, 1 tab daily for 3 days, 1/2 tab daily for 2 days PREDNISONE 20 MG ORAL TABLET 099000 PREDNISONE Inactive CEFDINIR 300 MG ORAL CAPSULE by mouth twice a day CEFDINIR 300 MG ORAL CAPSULE 579583 CEFDINIR Inactive PREDNISONE 20 MG ORAL TABLET 2 tabs daily for 3 days, 1 tab daily for 3 days, 1/2 tab daily for 2 days PREDNISONE 20 MG ORAL TABLET 765772 PREDNISONE Inactive CEFDINIR 300 MG ORAL CAPSULE 1 po BID x 10 days CEFDINIR 300 MG ORAL CAPSULE 189114 CEFDINIR Inactive AZITHROMYCIN 250 MG ORAL TABLET 2 po qd x 1 day, then 1 po qd x 4 days 08/30 AZITHROMYCIN 250 MG ORAL TABLET 621697 AZITHROMYCIN Inactive PREDNISONE 20 MG ORAL TABLET 2 tabs daily for 3 days, 1 tab daily for 3 days, 1/2 tab daily for 2 days start tomorrow 07/31/16 PREDNISONE 20 MG ORAL TABLET 431976 PREDNISONE Inactive AZITHROMYCIN 250 MG ORAL TABLET 2 po qd x 1 day, then 1 po qd x 4 days 07/24 AZITHROMYCIN 250 MG ORAL TABLET 407511 AZITHROMYCIN Inactive Immunizations Vaccine Administration Date Value Standard Description Human Papillomavirus vaccine (Gardasil) #2, (HPV #2) Gardasil [ [id number]] human papilloma virus vaccine, quadrivalent Seasonal influenza vaccine, injectable, containing preservative, for > 3 years old (Afluria, FluLaval, Fluzone, Fluvirin, Fluarix, Agriflu(>=18 yo)) Fluzone (>3 yrs.) [[id number]] Influenza, seasonal, injectable Human Papillomavirus Vaccine (Gardasil) #1 Given (HPV #1) Gardasil [CVX62] human papilloma virus vaccine, quadrivalent hepatitis A immunization #2 Havrix-Pedi hepatitis A vaccine, unspecified formulation Boostrix (Tetanus toxoid, reduced diphtheria toxoid and acellular pertussis vaccine, adsorbed), booster Boostrix [[id number]] tetanus toxoid, reduced diphtheria toxoid, and acellular [...] immunization #1 MMR DPT immunization #4 DTaP DPT immunization #3 DTaP Hemophilus influenza B [...] Negative Encounters Code Encounter Date Provider Facility CPT-83800 Level 3 Est. Patient 16:00:45 CDT Daniele Mcfadden DO [facility] CPT-68409 Level 3 Est. Patient 15:57:40 CDT Daniele [facility] CPT-74612 Level 3 Est. Patient 09:35:49 CLIPPER MACHINE Daniele Mcfadden [facility] CPT-49061 Level 3 Est. Patient 09:35:25 CLIPPER MACHINE Daniele Mcfadden [facility] CPT-48764 Level 3 Est. Patient 16:03:55 CLIPPER MACHINE Whitley Quiroz [facility] CPT-79471 Level 3 Est. Patient 17:42:49 CLIPPER MACHINE Whitley Quiroz [facility] CPT-99187 Level 3 Est. Patient 10:49:47 CLIPPER MACHINE Griselda Horvath [facility] CPT-42345 Level 3 Est. Patient 08:43:59 CLIPPER MACHINE Jessika Nunes [facility] CPT-50562 Level 3 Est. Patient 09:05:19 CLIPPER MACHINE Griselda Horvath [facility] CPT-62139 Level 3 Est. Patient 15:45:46 CDT Griselda Horvath [facility] CPT-22578 Level 3 Est. Patient 14:15:52 CDT Daniele Mcfadden [facility] CPT-67974 Level 3 Est. Patient 13:57:19 CLIPPER MACHINE Margarito Kelley MD [facility] CPT-35897 Level 3 Est. Patient 09:16:05 CLIPPER MACHINE Margarito Kelley MD [facility] CPT-48765 Level 3 Est. Patient 15:37:06 CLIPPER MACHINE Daniele Mcfadden [facility] CPT-26664 Level 3 Est. Patient 11:56:34 CLIPPER MACHINE Renée Adames [facility] CPT-67642 Level 3 Est. Patient 12:19:42 CDT Daniele Mcfadden [facility] CPT-61370 Level 3 Est. Patient 11:08:45 CDT Annita Mejia MD, PhD [facility] CPT-72612 Level 3 Est. Patient 12:00:17 CDT Kendell Coronado MD [facility] CPT-20153 Level 3 Est. Patient 12:27:25 CDT Daniele Gaetano Bogdan [facility] CPT-78014 Level 3 Est. Patient 18:45:11 CLIPPER MACHINE Daniele Mcfadden [facility] CPT-84407 Level 3 Est. Patient 10:12:24 CLIPPER MACHINE Daniele Mcfadden [facility] CPT-83391 Level 3 Est. Patient 14:35:11 CLIPPER MACHINE Daniele Mcfadden [facility] CPT-92263 Level 3 Est. Patient 14:11:04 CDT Daniele Gaetano Bogdan [facility] CPT-05111 Level 3 Est. Patient 10:52:13 CDT Alexander LOPEZ [facility] CPT-33144 Level 3 Est. Patient 11:01:08 CLIPPER MACHINE Daniele Mcfadden [facility] CPT-78600 Level 3 Est. Patient 10:55:35 CDT Daneile Salter [facility] CPT-84896 Level 3 Est. Patient 14:03:08 CDT Daniele Gaetano Mcfadden [facility] CPT-67870 Level 3 Est. Patient 11:26:19 CDT Margarito Kelley MD [facility] CPT-04033 Level 2 Est. Patient 15:32:04 CLIPPER MACHINE Daniele Mcfadden [facility] CPT-56390 Level 3 Est. Patient 16:01:26 CLIPPER MACHINE Daniele Mcfadden [facility] CPT-49885 Level 3 Est. Patient 06:37:10 CLIPPER MACHINE Daniele Mcfadden [facility] Procedures Code Procedure Name Date Entry Date Standard Description CPT-28345 Addl Vx - Ix admin via ID IM or jet injects without counseling by physician 14:37:19 CDT CPT-58638 Meningococcal B, recombinant vaccine 14:37:19 CDT 03/05 CPT-42964 First Vx - Ix admin via ID IM or jet injects without counseling by physician 14:37:19 CDT CPT-26587 Menveo Intramuscular Solution Reconstituted 14:37:19 CDT CPT-50239 Meningococcal Conjugate Vacine (Menactra) 11:20:04 CDT CPT-65382 Throat Culture - LAB USE ONLY 12:15:45 CLIPPER MACHINE CPT-90579 Misa Flu A/B - LAB USE ONLY 12:15:45 CLIPPER MACHINE CPT-24532 Rapid Strep (Reflex throat) - LAB USE ONLY 12:15:45 CLIPPER MACHINE CPT-49960 Rapid Strep (Grp A) - LAB USE ONLY 13:06:06 CDT CPT-54897 Abd compl w upright 12:34:39 CDT CPT-44623 Immunization Single Admin 11:38:41 CDT CPT-77455 Fluzone Quadrivalent Intramuscular Suspension 0.5 ML 11: 38:41 CDT CPT-OV Office Visit 14:45:12 CLIPPER MACHINE CPT-11752 [employer] inc all organs plus proximal aorta and distal IVC 2012 12:13:02 CLIPPER MACHINE CPT-23872 Abd compl w upright 15:12:58 CLIPPER MACHINE CPT-47867 Venipuncture Draw Fee 14:38:32 CLIPPER MACHINE CPT-74815 Administration single or combination vaccine inc oral 17 :10:04 CDT CPT-21128 Gardasil 17:10:04 CDT CPT-30581 Venipuncture Draw Fee 16:07:54 CLIPPER MACHINE CPT-32926 Administration 2+ single or combination vaccines inc oral 17:22:02 CDT CPT-71606 Administration single or combination vaccine inc oral 17 :22:02 CDT CPT-74650 Influenza split virus > age 3 17:22:02 CDT CPT-31270 Gardasil 17:22:02 CDT CPT-93097 Administration 2+ single or combination vaccines inc oral 14:38:31 CDT CPT-29607 Administration single or combination vaccine inc oral 14 :38:31 CDT CPT-97362 Meningococcal Conjugate Vacine (Menactra) 14:38:31 CDT CPT-02002 Gardasil 14:38:31 CDT
--- OUTSIDE RECORDS SUMMARY | 2018-02-15 06:33 | XMS REPORT | Clinical Summary ---
Author Author Admin, OLEG Organization [facility] Address Unknown Phone Unavailable Allergies, Adverse Reactions, [...] site; multiple sites Pharyngitis, acute 462 Resolved Magrarito Kelley MD Acute pharyngitis Knee pain, left 719.46 Resolved Margarito Kelley MD Pain in joint involving lower leg Upper respiratory infection, viral 465.9 Active Margarito Kelley MD Acute upper respiratory infections of unspecified site Sinusitis 473.9 Active Griselda Horvath STAMP MAKER Unspecified sinusitis (chronic) Eustachian tube dysfunction, right [...] tablet once daily for 2 days PREDNISONE 80731878648 Active Daniele Mcfadden DO Active PREDNISONE 20 MG TAB 2 tabs daily for 3 days, 1 tab daily for 3 days, 1/2 tab daily for 2 days PREDNISONE 03088240916 No Longer Active Margarito Kelley MD Active IRVING-D ALLERGY & CONGESTION UH37B-OMB 1 po bid FEXOFENADINE-PSEUDOEPHEDRINE PS80A-UQG 53408549192 No Longer Active Margarito Kelley MD Active PREDNISONE 20 MG TAB 2 tabs daily for 3 days, 1 tab daily for 3 days, 1/2 tab daily for 2 days PREDNISONE 05291594744 No Longer Active Jillina Frazell ALEX Active CEFDINIR 300 MG CAPS 1 cap by mouth twice a day CEFDINIR 79856248377 No Longer Active Jillina Frazell STAMP MAKER Active E-Z SPACER ERIBERTO use with proair inhalier every 4 times as need. SPACER/AERO-HOLDING CHAMBERS 13003238592 No Longer Active Jillina Frazell STAMP MAKER Active PROAIR HFA 108 (90 BASE) MCG/ACT AERS 2 puffs every 4 hours as needed 2014 ALBUTEROL SULFATE 94264404987 No Longer Active Jillina Frazell STAMP MAKER Active CEFTIN 500 MG TAB 1 tablet by mouth twice daily for ten days. CEFUROXIME AXETIL 87422757918 No Longer Active Ezekielllina Framarkl ALEX Active PREDNISONE 20 MG TAB 2 tabs daily for 3 days, 1 tab daily for 3 days, 1/2 tab daily for 2 days PREDNISONE 79602724150 No Longer Active Margarito Kelley MD Active CEPHALEXIN 500 MG CAPS 1 tablet by mouth three times daily for ten days 06/25 CEPHALEXIN 81800946863 No Longer Active Renée Adames APRN Active MEDROL (MARY) 4 MG TABS 6 pills on day 1, 5 pills on day 2, 4 pills on day 3, 4 pills on day 4, 2 pills on day 5, 1 pill on day 6 METHYLPREDNISOLONE 33221752047 No Longer Active Annita Mejia MD PhD Active ZITHROMAX Z-MARY 250 MG TABS 2 today and then 1 daily for 4 days AZITHROMYCIN 55296042846 No Longer Active Annita Mejia MD PhD Active GUAIFENESIN-CODEINE 100-10 MG/5ML SYRP 5ml every 4 to 6 hours as needed for cough GUAIFENESIN-CODEINE 03607204310 No Longer Active Annita Mejia MD PhD Active FLONASE 50 MCG/ACT SUSP 1 spray each nostril am and hs FLUTICASONE PROPIONATE 36898993826 No Longer Active Kendell Coronado MD Active MELOXICAM 15 MG TABS 1 po q day for pain with food MELOXICAM 95713145136 No Longer Active Kendell Coronado MD Active HYDROCODONE-ACETAMINOPHEN 5-325 MG TABS 1-2 q 4-6 hrs prn pain 20 tabs 07/04 HYDROCODONE-ACETAMINOPHEN 71611488832 No Longer Active Daniele Mcfadden DO Active PREDNISONE 20 MG TAB 1 tablet twice daily for 2 days, then 1 tablet once daily for 2 days PREDNISONE 79841272401 No Longer Active Daniele Mcfadden DO Active PREDNISONE 20 MG TAB 1 po bid 2 days, then daily for 2 days 12/27 PREDNISONE 05979307439 No Longer Active Alexander LOPEZ Active AZITHROMYCIN 250 MG TABS 2 po qd x 1 day, then 1 po qd x 4 days AZITHROMYCIN 17332228945 No Longer Active Daniele Mcfadden DO Active MUCINEX MAXIMUM STRENGTH VT79F-BRW 1 po qd GUAIFENESIN XR12H- TAB 20041331425 No Longer Active Daniele Mcfadden DO Active AZITHROMYCIN 250 MG TABS 2 po qd x 1 day, then 1 po qd x 4 days AZITHROMYCIN 85441087914 No Longer Active Margarito Kelley MD Active MUCINEX MAXIMUM STRENGTH BX09E-HNA 1 po qd MUCINEX MAXIMUM STRENGTH QI86R-KZQ GUAIFENESIN KF50B-VAF Inactive PREDNISONE 20 MG TAB 1 po bid 2 days, then daily for 2 days 12/27 PREDNISONE 20 MG TAB 225792 PREDNISONE Inactive PREDNISONE 20 MG TAB 1 tablet twice daily for 2 days, then 1 tablet once daily for 2 days PREDNISONE 20 MG TAB 715484 PREDNISONE Inactive HYDROCODONE-ACETAMINOPHEN 5-325 MG TABS 1-2 q 4-6 hrs prn pain 20 tabs 07/04 HYDROCODONE-ACETAMINOPHEN 5-325 MG TABS 135043 HYDROCODONE- ACETAMINOPHEN Inactive MELOXICAM 15 MG TABS 1 po q day for pain with food MELOXICAM 15 MG TABS 968090 MELOXICAM Inactive FLONASE 50 MCG/ACT SUSP 1 spray each nostril am and hs FLONASE 50 MCG/ACT SUSP FLUTICASONE PROPIONATE Inactive GUAIFENESIN-CODEINE 100-10 MG/5ML SYRP 5ml every 4 to 6 hours as needed for cough GUAIFENESIN-CODEINE 100-10 MG/5ML SYRP 649146 GUAIFENESIN-CODEINE Inactive ZITHROMAX Z-MARY 250 MG TABS 2 today and then 1 daily for 4 days ZITHROMAX Z-MARY 250 MG TABS 5775711 AZITHROMYCIN Inactive CEFTIN 500 MG TAB 1 tablet by mouth twice daily for ten days. CEFTIN 500 MG TAB 988686 CEFUROXIME AXETIL Inactive PROAIR HFA 108 (90 BASE) MCG/ACT AERS 2 puffs every 4 hours as needed 2014 PROAIR HFA 108 (90 BASE) MCG/ACT AERS ALBUTEROL SULFATE Inactive E-Z SPACER ERIBERTO use with proair inhalier every 4 times as need. E-Z SPACER ERIBERTO SPACER/AERO-HOLDING CHAMBERS Inactive IRVING-D ALLERGY & CONGESTION [id number]-QXT 1 po bid IRVING-D ALLERGY & CONGESTION LA18I-KVU FEXOFENADINE-PSEUDOEPHEDRINE XR12H- TAB Inactive AZITHROMYCIN 250 MG TABS 2 po qd x 1 day, then 1 po qd x 4 days AZITHROMYCIN 250 MG TABS 0162087 AZITHROMYCIN Inactive AZITHROMYCIN 250 MG TABS 2 po qd x 1 day, then 1 po qd x 4 days AZITHROMYCIN 250 MG TABS 5470275 AZITHROMYCIN Inactive MEDROL (MARY) 4 MG TABS 6 pills on day 1, 5 pills on day 2, 4 pills on day 3, 4 pills on day 4, 2 pills on day 5, 1 pill on day 6 MEDROL (MARY) 4 MG TABS 735363 METHYLPREDNISOLONE Inactive CEPHALEXIN 500 MG CAPS 1 tablet by mouth three times daily for ten days 06/25 CEPHALEXIN 500 MG CAPS 679854 CEPHALEXIN Inactive PREDNISONE 20 MG TAB 2 tabs daily for 3 days, 1 tab daily for 3 days, 1/2 tab daily for 2 days PREDNISONE 20 MG TAB 365028 PREDNISONE Inactive CEFDINIR 300 MG CAPS 1 cap by mouth twice a day CEFDINIR 300 MG CAPS 909869 CEFDINIR Inactive PREDNISONE 20 MG TAB 2 tabs daily for 3 days, 1 tab daily for 3 days, 1/2 tab daily for 2 days PREDNISONE 20 MG TAB 181543 PREDNISONE Inactive PREDNISONE 20 MG TAB 2 tabs daily for 3 days, 1 tab daily for 3 days, 1/2 tab daily for 2 days PREDNISONE 20 MG TAB 776628 PREDNISONE Inactive Immunizations Vaccine Administration Date Value Standard Description Human Papillomavirus vaccine (Gardasil) #2, (HPV #2) Gardasil [ CVX62] human papilloma virus vaccine, quadrivalent Seasonal influenza vaccine, injectable, containing preservative, for > 3 years old (Afluria, FluLaval, Fluzone, Fluvirin, Fluarix, Agriflu(>=18 yo)) Fluzone (>3 yrs.) [[id number]] Influenza, seasonal, injectable Human Papillomavirus Vaccine (Gardasil) #1 Given (HPV #1) Gardasil [CVX62] human papilloma virus vaccine, quadrivalent hepatitis A immunization #2 Havrix-Pedi hepatitis A vaccine, unspecified formulation Boostrix (Tetanus toxoid, reduced diphtheria toxoid and acellular pertussis vaccine, adsorbed), booster Boostrix [[id number]] tetanus toxoid, reduced diphtheria toxoid, and acellular [...] E&M - 3141-9 191 [lb_av] Weight Measured Diagnostic Results Date Name Value Unit Range Description Lab Report: Rapid Strep - Lab Microbial identification kit, rapid strep method Negative-Throat Culture to Follow Negative Encounters Code Encounter Date Provider Facility CPT-83702 Level 3 Est. Patient 14:15:52 CDT Daniele Mcfadden [facility] CPT-60363 Level 3 Est. Patient 13:57:19 ART EDUCATOR Margarito Kelley MD [facility] CPT-42065 Level 3 Est. Patient 09:16:05 ART EDUCATOR Margarito Kelley MD [facility] CPT-69869 Level 3 Est. Patient 15:37:06 ART EDUCATOR Daniele Mcfadden DO [facility] CPT-57130 Level 3 Est. Patient 11:56:34 ART EDUCATOR Renée Adames APRN [facility] CPT-81218 Level 3 Est. Patient 12:19:42 CDT Daniele Mcfadden DO [facility] CPT-65482 Level 3 Est. Patient 11:08:45 CDT Annita Mejia MD PhD [facility] CPT-87825 Level 3 Est. Patient 12:00:17 CDT Kendell Coronado MD [facility] CPT-65473 Level 3 Est. Patient 12:27:25 CDT Daniele Mcfadden [facility] CPT-39139 Level 3 Est. Patient 18:45:11 ART EDUCATOR Daniele Mcfadden [facility] CPT-06626 Level 3 Est. Patient 10:12:24 ART EDUCATOR Daniele Mcfadden [facility] CPT-49708 Level 3 Est. Patient 14:35:11 ART EDUCATOR Daniele Mcfadden [facility] CPT-55155 Level 3 Est. Patient 14:11:04 CDT Daniele Mcfadden [facility] CPT-08684 Level 3 Est. Patient 10:52:13 CDT Alexander LOPEZ [facility] CPT-39562 Level 3 Est. Patient 11:01:08 ART EDUCATOR Daniele Mcfadden [facility] CPT-80131 Level 3 Est. Patient 10:55:35 CDT Daniele Mcfadden [facility] CPT-68881 Level 3 Est. Patient 14:03:08 CDT Daniele Mcfadden [facility] CPT-48909 Level 3 Est. Patient 11:26:19 CDT Margarito Kelley MD [facility] CPT-29821 Level 2 Est. Patient 15:32:04 ART EDUCATOR Daniele Mcfadden [facility] CPT-98048 Level 3 Est. Patient 16:01:26 ART EDUCATOR Daniele Mcfadden [facility] CPT-65840 Level 3 Est. Patient 06:37:10 ART EDUCATOR Daniele Mcfadden [facility] Procedures Code Procedure Name Date Entry Date Standard Description CPT-12660 Abd compl w upright 12:34:39 CDT CPT-01923 Immunization Single Admin 11:38:41 CDT CPT-11919 Fluzone Quadrivalent Intramuscular Suspension 0.5 ML 11: 38:41 CDT CPT-OV Office Visit 14:45:12 ART EDUCATOR CPT-51102 [employer] inc all organs plus proximal aorta and distal IVC 2012 12:13:02 ART EDUCATOR CPT-76324 Abd compl w upright 15:12:58 ART EDUCATOR CPT-32677 Venipuncture Draw Fee 14:38:32 ART EDUCATOR CPT-12278 Administration single or combination vaccine inc oral 17 :10:04 CDT CPT-70070 Gardasil 17:10:04 CDT CPT-70495 Venipuncture Draw Fee 16:07:54 ART EDUCATOR CPT-35965 Administration 2+ single or combination vaccines inc oral 17:22:02 CDT CPT-00700 Administration single or combination vaccine inc oral 17 :22:02 CDT CPT-82505 Influenza split virus > age 3 17:22:02 CDT CPT-64599 Gardasil 17:22:02 CDT CPT-04238 Administration 2+ single or combination vaccines inc oral 14:38:31 CDT CPT-22312 Administration single or combination vaccine inc oral 14 :38:31 CDT CPT-68149 Meningococcal Conjugate Vacine (Menactra) 14:38:31 CDT CPT-01549 Gardasil 14:38:31 CDT
--- OUTSIDE RECORDS SUMMARY | 2018-02-15 06:34 | XMS REPORT | Clinical Summary ---
Author Author Admin, Ludmila Organization [facility] Address Unknown Phone Unavailable Allergies, Adverse Reactions, [...] unspecified site Sinusitis 473.9 Active Griselda Horvath CUSTOMER SERVICE DISPATCHER Unspecified sinusitis (chronic) Eustachian tube dysfunction, right 381.81 Active Margarito Kelley MD Dysfunction of Eustachian tube Pharyngitis-Acute 462 Active Daniele Mcfadden DO Acute pharyngitis URI 465.9 Active Griselda Horvath CUSTOMER SERVICE DISPATCHER Acute upper respiratory infections of unspecified site Allergic rhinitis 477.9 Active Jessika Nunes CUSTOMER SERVICE DISPATCHER Allergic rhinitis, cause unspecified Acute rhinosinusitis 461.9 Active Jessika Nunes CUSTOMER SERVICE DISPATCHER Acute sinusitis, unspecified Fever 780.60 Active Griselda Horvath CUSTOMER SERVICE DISPATCHER Fever, unspecified ALLERGIC RHINITIS ICD-477.9 Inactive Errol [...] Pharyngitis ICD-462 Inactive Annita Mejia MD PhD CONCUSSION WITH LOC OF 30 MINUTES OR LESS ICD-850.11 Inactive Margarito Kelley MD Vaccination against influenza ICD-V04.81 Inactive Margarito [...] Provider Patient Instruction MUCINEX D 60-600 MG [id number] 1 po BID PRN Congestion PSEUDOEPHEDRINE-GUAIFENESIN 10709002466 No Longer Active Jessika Hartford CUSTOMER SERVICE DISPATCHER Active CEFDINIR 300 MG CAPS 1 po BID x 10 days CEFDINIR 41556147639 No Longer Active Jillina Frazell CUSTOMER SERVICE DISPATCHER Active PREDNISONE 20 MG TAB 2 tabs daily for 3 days, 1 tab daily for 3 days, 1/2 tab daily for 2 days PREDNISONE 79188498676 No Longer Active Jillina Frazell CUSTOMER SERVICE DISPATCHER Active FLUTICASONE PROPIONATE 50 MCG/ACT SUSP 1 to 2 sprays each nostril daily 03/20 FLUTICASONE PROPIONATE 58021265049 No Longer Active Jillina Frazell CUSTOMER SERVICE DISPATCHER Active GUAIFENESIN 600 MG QT08B-AHL 1 twice a day as needed for congestion GUAIFENESIN 70842916924 No Longer Active Jillina Frazell CUSTOMER SERVICE DISPATCHER Active CEFDINIR 300 MG CAPS by mouth twice a day CEFDINIR 67550096885 No Longer Active Jillina Frazell CUSTOMER SERVICE DISPATCHER Active PREDNISONE 20 MG TAB 1 tablet twice daily for 2 days, then 1 tablet once daily for 2 days PREDNISONE 62210039956 No Longer Active Jillina Frazell CUSTOMER SERVICE DISPATCHER Active PREDNISONE 20 MG TAB 2 tabs daily for 3 days, 1 tab daily for 3 days, 1/2 tab daily for 2 days PREDNISONE 05120167644 No Longer Active Margarito Kelley MD Active IRVING-D ALLERGY & CONGESTION IE51M-FYS 1 po bid FEXOFENADINE-PSEUDOEPHEDRINE UQ64D-DYW 89155082035 No Longer Active Margarito Kelley MD Active PREDNISONE 20 MG TAB 2 tabs daily for 3 days, 1 tab daily for 3 days, 1/2 tab daily for 2 days PREDNISONE 83380286740 No Longer Active Jillina Frazell CUSTOMER SERVICE DISPATCHER Active CEFDINIR 300 MG CAPS 1 cap by mouth twice a day CEFDINIR 37195437874 No Longer Active Jillina Frazell CUSTOMER SERVICE DISPATCHER Active E-Z SPACER ERIBERTO use with proair inhalier every 4 times as need. SPACER/AERO-HOLDING CHAMBERS 74493043380 No Longer Active Jillina Frazell CUSTOMER SERVICE DISPATCHER Active PROAIR HFA 108 (90 BASE) MCG/ACT AERS 2 puffs every 4 hours as needed 2014 ALBUTEROL SULFATE 57167603598 No Longer Active Ezekielllina Frazell CUSTOMER SERVICE DISPATCHER Active CEFTIN 500 MG TAB 1 tablet by mouth twice daily for ten days. CEFUROXIME AXETIL 56799771212 No Longer Active Ezekielllina Framarkl ALEX Active PREDNISONE 20 MG TAB 2 tabs daily for 3 days, 1 tab daily for 3 days, 1/2 tab daily for 2 days PREDNISONE 38602138020 No Longer Active Margarito Kelley MD Active CEPHALEXIN 500 MG CAPS 1 tablet by mouth three times daily for ten days 06/25 CEPHALEXIN 13745818500 No Longer Active Renée Adames APRN Active MEDROL (MARY) 4 MG TABS 6 pills on day 1, 5 pills on day 2, 4 pills on day 3, 4 pills on day 4, 2 pills on day 5, 1 pill on day 6 METHYLPREDNISOLONE 89674110481 No Longer Active Annita Mejia MD PhD Active ZITHROMAX Z-MARY 250 MG TABS 2 today and then 1 daily for 4 days AZITHROMYCIN 61814299349 No Longer Active Annita Mejia MD PhD Active GUAIFENESIN-CODEINE 100-10 MG/5ML SYRP 5ml every 4 to 6 hours as needed for cough GUAIFENESIN-CODEINE 54252958125 No Longer Active Annita Mejia MD PhD Active FLONASE 50 MCG/ACT SUSP 1 spray each nostril am and hs FLUTICASONE PROPIONATE 75109750500 No Longer Active Kendell Coronado MD Active MELOXICAM 15 MG TABS 1 po q day for pain with food MELOXICAM 63609852211 No Longer Active Kendell Coronado MD Active HYDROCODONE-ACETAMINOPHEN 5-325 MG TABS 1-2 q 4-6 hrs prn pain 20 tabs 07/04 HYDROCODONE-ACETAMINOPHEN 66971123745 No Longer Active Daniele Mcfadden DO Active PREDNISONE 20 MG TAB 1 tablet twice daily for 2 days, then 1 tablet once daily for 2 days PREDNISONE 94264709496 No Longer Active Daniele Mcfadden DO Active PREDNISONE 20 MG TAB 1 po bid 2 days, then daily for 2 days 12/27 PREDNISONE 05243580465 No Longer Active Alexander LOPEZ Active AZITHROMYCIN 250 MG TABS 2 po qd x 1 day, then 1 po qd x 4 days AZITHROMYCIN 91260260833 No Longer Active Daniele Mcfadden DO Active MUCINEX MAXIMUM STRENGTH CG15I-HTD 1 po qd GUAIFENESIN XR12H- TAB 32763935816 No Longer Active Daniele Mcfadden DO Active AZITHROMYCIN 250 MG TABS 2 po qd x 1 day, then 1 po qd x 4 days AZITHROMYCIN 34118400785 No Longer Active Margarito Kelley MD Active MUCINEX MAXIMUM STRENGTH UU51A-WDQ 1 po qd MUCINEX MAXIMUM STRENGTH PH85S-QTZ GUAIFENESIN XP92D-XWT Inactive PREDNISONE 20 MG TAB 1 po bid 2 days, then daily for 2 days 12/27 PREDNISONE 20 MG TAB 128228 PREDNISONE Inactive PREDNISONE 20 MG TAB 1 tablet twice daily for 2 days, then 1 tablet once daily for 2 days PREDNISONE 20 MG TAB 041380 PREDNISONE Inactive HYDROCODONE-ACETAMINOPHEN 5-325 MG TABS 1-2 q 4-6 hrs prn pain 20 tabs 07/04 HYDROCODONE-ACETAMINOPHEN 5-325 MG TABS 770921 HYDROCODONE- ACETAMINOPHEN Inactive MELOXICAM 15 MG TABS 1 po q day for pain with food MELOXICAM 15 MG TABS 567974 MELOXICAM Inactive FLONASE 50 MCG/ACT SUSP 1 spray each nostril am and hs FLONASE 50 MCG/ACT SUSP FLUTICASONE PROPIONATE Inactive GUAIFENESIN-CODEINE 100-10 MG/5ML SYRP 5ml every 4 to 6 hours as needed for cough GUAIFENESIN-CODEINE 100-10 MG/5ML SYRP 912868 GUAIFENESIN-CODEINE Inactive ZITHROMAX Z-MARY 250 MG TABS 2 today and then 1 daily for 4 days ZITHROMAX Z-MARY 250 MG TABS 4768066 AZITHROMYCIN Inactive CEFTIN 500 MG TAB 1 tablet by mouth twice daily for ten days. CEFTIN 500 MG TAB 424658 CEFUROXIME AXETIL Inactive PROAIR HFA 108 (90 BASE) MCG/ACT AERS 2 puffs every 4 hours as needed 2014 PROAIR HFA 108 (90 BASE) MCG/ACT AERS ALBUTEROL SULFATE Inactive E-Z SPACER ERIBERTO use with proair inhalier every 4 times as need. E-Z SPACER ERIBERTO SPACER/AERO-HOLDING CHAMBERS Inactive IRVING-D ALLERGY & CONGESTION SB63A-HJS 1 po bid IRVING-D ALLERGY & CONGESTION UU02R-GYW FEXOFENADINE-PSEUDOEPHEDRINE XR12H- TAB Inactive PREDNISONE 20 MG TAB 1 tablet twice daily for 2 days, then 1 tablet once daily for 2 days PREDNISONE 20 MG TAB 630466 PREDNISONE Inactive GUAIFENESIN 600 MG YK83W-CDE 1 twice a day as needed for congestion GUAIFENESIN 600 MG RX20K-CEC GUAIFENESIN Inactive FLUTICASONE PROPIONATE 50 MCG/ACT SUSP 1 to 2 sprays each nostril daily 03/20 FLUTICASONE PROPIONATE 50 MCG/ACT SUSP 3477435 FLUTICASONE PROPIONATE Inactive MUCINEX D 60-600 MG LX41E-VZC 1 po BID PRN Congestion MUCINEX D 60-600 MG QF81U-NHK PSEUDOEPHEDRINE-GUAIFENESIN Inactive AZITHROMYCIN 250 MG TABS 2 po qd x 1 day, then 1 po qd x 4 days AZITHROMYCIN 250 MG TABS 0206697 AZITHROMYCIN Inactive AZITHROMYCIN 250 MG TABS 2 po qd x 1 day, then 1 po qd x 4 days AZITHROMYCIN 250 MG TABS 3011682 AZITHROMYCIN Inactive MEDROL (MARY) 4 MG TABS 6 pills on day 1, 5 pills on day 2, 4 pills on day 3, 4 pills on day 4, 2 pills on day 5, 1 pill on day 6 MEDROL (MARY) 4 MG TABS 174918 METHYLPREDNISOLONE Inactive CEPHALEXIN 500 MG CAPS 1 tablet by mouth three times daily for ten days 06/25 CEPHALEXIN 500 MG CAPS 439378 CEPHALEXIN Inactive PREDNISONE 20 MG TAB 2 tabs daily for 3 days, 1 tab daily for 3 days, 1/2 tab daily for 2 days PREDNISONE 20 MG TAB 821361 PREDNISONE Inactive CEFDINIR 300 MG CAPS 1 cap by mouth twice a day CEFDINIR 300 MG CAPS 929657 CEFDINIR Inactive PREDNISONE 20 MG TAB 2 tabs daily for 3 days, 1 tab daily for 3 days, 1/2 tab daily for 2 days PREDNISONE 20 MG TAB 588121 PREDNISONE Inactive PREDNISONE 20 MG TAB 2 tabs daily for 3 days, 1 tab daily for 3 days, 1/2 tab daily for 2 days PREDNISONE 20 MG TAB 802784 PREDNISONE Inactive CEFDINIR 300 MG CAPS by mouth twice a day CEFDINIR 300 MG CAPS 516687 CEFDINIR Inactive PREDNISONE 20 MG TAB 2 tabs daily for 3 days, 1 tab daily for 3 days, 1/2 tab daily for 2 days PREDNISONE 20 MG TAB 786506 PREDNISONE Inactive CEFDINIR 300 MG CAPS 1 po BID x 10 days CEFDINIR 300 MG CAPS 360183 CEFDINIR Inactive Immunizations Vaccine Administration Date Value Standard Description Human Papillomavirus vaccine (Gardasil) #2, (HPV #2) Gardasil [ CVX62] human papilloma virus vaccine, quadrivalent Seasonal influenza vaccine, injectable, containing preservative, for > 3 years old (Afluria, FluLaval, Fluzone, Fluvirin, Fluarix, Agriflu(>=18 yo)) Fluzone (>3 yrs.) [[id number]] Influenza, seasonal, injectable Human Papillomavirus Vaccine (Gardasil) #1 Given (HPV #1) Gardasil [CVX62] human papilloma virus vaccine, quadrivalent hepatitis A immunization #2 Havrix-Pedi hepatitis A vaccine, unspecified formulation Boostrix (Tetanus toxoid, reduced diphtheria toxoid and acellular pertussis vaccine, adsorbed), booster Boostrix [NSR887] tetanus toxoid, reduced diphtheria toxoid, and acellular [...] Negative Encounters Code Encounter Date Provider Facility CPT-73698 Level 3 Est. Patient 10:49:47 BEATER DUMPER Griselda Horvath [facility]-44209 Level 3 Est. Patient 08:43:59 BEATER DUMPER Jessika Nunes [facility]-09839 Level 3 Est. Patient 09:05:19 BEATER DUMPER Griselda Horvath [facility]-91823 Level 3 Est. Patient 15:45:46 CDT Griselda Horvath [facility]-77308 Level 3 Est. Patient 14:15:52 CDT Daniele Mcfadden [facility]-11745 Level 3 Est. Patient 13:57:19 BEATER DUMPER Margarito Kelley MD [facility]-33637 Level 3 Est. Patient 09:16:05 BEATER DUMPER Margarito Kelley MD [facility]-48706 Level 3 Est. Patient 15:37:06 BEATER DUMPER Daniele Mcfadden [facility] CPT-48065 Level 3 Est. Patient 11:56:34 BEATER DUMPER Renée Adames [facility]-88330 Level 3 Est. Patient 12:19:42 CDT Daniele Mcfadden [facility]-82123 Level 3 Est. Patient 11:08:45 CDT Annita Mejia MD PhD [facility]-19228 Level 3 Est. Patient 12:00:17 CDT Kendell Coronado MD [facility]-67800 Level 3 Est. Patient 12:27:25 CDT Daniele Mcfadden [facility]-84694 Level 3 Est. Patient 18:45:11 BEATER DUMPER Daniele Mcfadden [facility]-88621 Level 3 Est. Patient 10:12:24 BEATER DUMPER Daniele Mcfadden [facility] CPT-78769 Level 3 Est. Patient 14:35:11 BEATER DUMPER Daniele Mcfadden [facility] CPT-60447 Level 3 Est. Patient 14:11:[address] [facility] CPT-73468 Level 3 Est. Patient 10:52:13 CDT Alexander Estrada [facility] CPT-40291 Level 3 Est. Patient 11:01:08 BEATER DUMPER Daniele Mcfadden [facility] CPT-51492 Level 3 Est. Patient 10:55:35 CDT Daniele Mcfadden [facility] [address] CPT-18366 Level 3 Est. Patient 14:03:[address] [facility] CPT-56502 Level 3 Est. Patient 11:26:19 CDT Margarito Kelley MD [facility] CPT-35202 Level 2 Est. Patient 15:32:04 BEATER DUMPER Daniele Mcfadden [facility] CPT-77896 Level 3 Est. Patient 16:01:26 BEATER DUMPER Daniele Mcfadden [facility] CPT-35967 Level 3 Est. Patient 06:37:10 BEATER DUMPER Daniele Mcfadden [facility] Procedures Code Procedure Name Date Entry Date Standard Description CPT-97076 Throat Culture - LAB USE ONLY 12:15:45 BEATER DUMPER CPT-17186 Misa Flu A/B - LAB USE ONLY 12:15:45 BEATER DUMPER CPT-82454 Rapid Strep (Reflex throat) - LAB USE ONLY 12:15:45 BEATER DUMPER CPT-68679 Rapid Strep (Grp A) - LAB USE ONLY 13:06:06 CDT CPT-43551 Abd compl w upright 12:34:39 CDT CPT-34277 Immunization Single Admin 11:38:41 CDT CPT-59845 Fluzone Quadrivalent Intramuscular Suspension 0.5 ML 11: 38:41 CDT CPT-OV Office Visit 14:45:12 BEATER DUMPER CPT-45166 [employer] all organs plus proximal aorta and distal IVC 2012 12:13:02 BEATER DUMPER CPT-82607 Abd compl w upright 15:12:58 BEATER DUMPER CPT-45272 Venipuncture Draw Fee 14:38:32 BEATER DUMPER CPT-88319 Administration single or combination vaccine inc oral 17 :10:04 CDT CPT-93594 Gardasil 17:10:04 CDT CPT-95943 Venipuncture Draw Fee 16:07:54 BEATER DUMPER CPT-89310 Administration 2+ single or combination vaccines inc oral 17:22:02 CDT CPT-48239 Administration single or combination vaccine inc oral 17 :22:02 CDT CPT-74970 Influenza split virus > age 3 17:22:02 CDT CPT-52972 Gardasil 17:22:02 CDT CPT-76557 Administration 2+ single or combination vaccines inc oral 14:38:31 CDT CPT-58459 Administration single or combination vaccine inc oral 14 :38:31 CDT CPT-41957 Meningococcal Conjugate Vacine (Menactra) 14:38:31 CDT CPT-78222 Gardasil 14:38:31 CDT
--- OUTSIDE RECORDS SUMMARY | 2018-02-15 06:34 | XMS REPORT | Clinical Summary ---
Author Author Admin, OLEG Organization [facility] Address Unknown Phone Unavailable Allergies, Adverse Reactions, [...] unspecified site Sinusitis 473.9 Active Griselda Horvath ORAL PATHOLOGIST Unspecified sinusitis (chronic) Eustachian tube dysfunction, right [...] Generic Name NDC Status Provider Patient Instruction GUAIFENESIN 600 MG [id number] 1 twice a day as needed for congestion GUAIFENESIN [id number] Active Jillina Frazell ORAL PATHOLOGIST Active FLUTICASONE PROPIONATE 50 MCG/ACT SUSP 1 to 2 sprays each nostril daily 03/20 FLUTICASONE PROPIONATE 35245515872 Active Jillina Frazell ORAL PATHOLOGIST Active CEFDINIR 300 MG CAPS by mouth twice a day CEFDINIR 75219048088 Active Jillina Frazell ORAL PATHOLOGIST Active PREDNISONE 20 MG TAB 1 tablet twice daily for 2 days, then 1 tablet once daily for 2 days PREDNISONE 75349912470 No Longer Active Jillina Frazell ORAL PATHOLOGIST Active PREDNISONE 20 MG TAB 2 tabs daily for 3 days, 1 tab daily for 3 days, 1/2 tab daily for 2 days PREDNISONE 09843192050 No Longer Active Margarito Kelley MD Active IRVING-D ALLERGY & CONGESTION [id number] 1 po bid FEXOFENADINE-PSEUDOEPHEDRINE [id number] 78337556760 No Longer Active Margarito Kelley MD Active PREDNISONE 20 MG TAB 2 tabs daily for 3 days, 1 tab daily for 3 days, 1/2 tab daily for 2 days PREDNISONE 31572650935 No Longer Active Jillina Frazell ORAL PATHOLOGIST Active CEFDINIR 300 MG CAPS 1 cap by mouth twice a day CEFDINIR 25118596419 No Longer Active Jillina Frazell ORAL PATHOLOGIST Active E-Z SPACER ERIBERTO use with proair inhalier every 4 times as need. SPACER/AERO-HOLDING CHAMBERS 12775610710 No Longer Active Jillina Frazell ORAL PATHOLOGIST Active PROAIR HFA 108 (90 BASE) MCG/ACT AERS 2 puffs every 4 hours as needed 2014 ALBUTEROL SULFATE 84574870153 No Longer Active Jillina Frazell ORAL PATHOLOGIST Active CEFTIN 500 MG TAB 1 tablet by mouth twice daily for ten days. CEFUROXIME AXETIL 18758856966 No Longer Active Jillina Frazell ORAL PATHOLOGIST Active PREDNISONE 20 MG TAB 2 tabs daily for 3 days, 1 tab daily for 3 days, 1/2 tab daily for 2 days PREDNISONE 30230496106 No Longer Active Margarito Kelley MD Active CEPHALEXIN 500 MG CAPS 1 tablet by mouth three times daily for ten days 06/25 CEPHALEXIN 41434462950 No Longer Active Renée Adames ALEX Active MEDROL (MARY) 4 MG TABS 6 pills on day 1, 5 pills on day 2, 4 pills on day 3, 4 pills on day 4, 2 pills on day 5, 1 pill on day 6 METHYLPREDNISOLONE 23539856080 No Longer Active Annita Mejia MD PhD Active ZITHROMAX Z-MARY 250 MG TABS 2 today and then 1 daily for 4 days AZITHROMYCIN 75852434305 No Longer Active Annita Mejia MD PhD Active GUAIFENESIN-CODEINE 100-10 MG/5ML SYRP 5ml every 4 to 6 hours as needed for cough GUAIFENESIN-CODEINE 67001804550 No Longer Active Annita Mejia MD PhD Active FLONASE 50 MCG/ACT SUSP 1 spray each nostril am and hs FLUTICASONE PROPIONATE 03837267505 No Longer Active Kendell Coronado MD Active MELOXICAM 15 MG TABS 1 po q day for pain with food MELOXICAM 89244668117 No Longer Active Kendell Coronado MD Active HYDROCODONE-ACETAMINOPHEN 5-325 MG TABS 1-2 q 4-6 hrs prn pain 20 tabs 07/04 HYDROCODONE-ACETAMINOPHEN 26895357499 No Longer Active Daniele Mcfadden DO Active PREDNISONE 20 MG TAB 1 tablet twice daily for 2 days, then 1 tablet once daily for 2 days PREDNISONE 69123133415 No Longer Active Daniele Mcfadden DO Active PREDNISONE 20 MG TAB 1 po bid 2 days, then daily for 2 days 12/27 PREDNISONE 43188643832 No Longer Active Alexander LOPEZ Active AZITHROMYCIN 250 MG TABS 2 po qd x 1 day, then 1 po qd x 4 days AZITHROMYCIN 71241643736 No Longer Active Daniele Mcfadden DO Active MUCINEX MAXIMUM STRENGTH [id number] 1 po qd GUAIFENESIN XR12H- TAB 07602281613 No Longer Active Daniele Mcfadden DO Active AZITHROMYCIN 250 MG TABS 2 po qd x 1 day, then 1 po qd x 4 days AZITHROMYCIN 38887296459 No Longer Active Margarito Kelley MD Active MUCINEX MAXIMUM STRENGTH [id number] 1 po qd MUCINEX MAXIMUM STRENGTH [id number] GUAIFENESIN [id number]-FXD Inactive PREDNISONE 20 MG TAB 1 po bid 2 days, then daily for 2 days 12/27 PREDNISONE 20 MG TAB 170540 PREDNISONE Inactive PREDNISONE 20 MG TAB 1 tablet twice daily for 2 days, then 1 tablet once daily for 2 days PREDNISONE 20 MG TAB 572746 PREDNISONE Inactive HYDROCODONE-ACETAMINOPHEN 5-325 MG TABS 1-2 q 4-6 hrs prn pain 20 tabs 07/04 HYDROCODONE-ACETAMINOPHEN 5-325 MG TABS 667143 HYDROCODONE- ACETAMINOPHEN Inactive MELOXICAM 15 MG TABS 1 po q day for pain with food MELOXICAM 15 MG TABS 483199 MELOXICAM Inactive FLONASE 50 MCG/ACT SUSP 1 spray each nostril am and hs FLONASE 50 MCG/ACT SUSP FLUTICASONE PROPIONATE Inactive GUAIFENESIN-CODEINE 100-10 MG/5ML SYRP 5ml every 4 to 6 hours as needed for cough GUAIFENESIN-CODEINE 100-10 MG/5ML SYRP 568461 GUAIFENESIN-CODEINE Inactive ZITHROMAX Z-MARY 250 MG TABS 2 today and then 1 daily for 4 days ZITHROMAX Z-MARY 250 MG TABS 0280467 AZITHROMYCIN Inactive CEFTIN 500 MG TAB 1 tablet by mouth twice daily for ten days. CEFTIN 500 MG TAB 039995 CEFUROXIME AXETIL Inactive PROAIR HFA 108 (90 BASE) MCG/ACT AERS 2 puffs every 4 hours as needed 2014 PROAIR HFA 108 (90 BASE) MCG/ACT AERS ALBUTEROL SULFATE Inactive E-Z SPACER ERIBERTO use with proair inhalier every 4 times as need. E-Z SPACER ERIBERTO SPACER/AERO-HOLDING CHAMBERS Inactive IRVING-D ALLERGY & CONGESTION [id number] 1 po bid IRVING-D ALLERGY & CONGESTION [id number] FEXOFENADINE-PSEUDOEPHEDRINE XR12H- TAB Inactive PREDNISONE 20 MG TAB 1 tablet twice daily for 2 days, then 1 tablet once daily for 2 days PREDNISONE 20 MG TAB 605046 PREDNISONE Inactive AZITHROMYCIN 250 MG TABS 2 po qd x 1 day, then 1 po qd x 4 days AZITHROMYCIN 250 MG TABS 0909834 AZITHROMYCIN Inactive AZITHROMYCIN 250 MG TABS 2 po qd x 1 day, then 1 po qd x 4 days AZITHROMYCIN 250 MG TABS 2529427 AZITHROMYCIN Inactive MEDROL (MARY) 4 MG TABS 6 pills on day 1, 5 pills on day 2, 4 pills on day 3, 4 pills on day 4, 2 pills on day 5, 1 pill on day 6 MEDROL (MARY) 4 MG TABS 612921 METHYLPREDNISOLONE Inactive CEPHALEXIN 500 MG CAPS 1 tablet by mouth three times daily for ten days 06/25 CEPHALEXIN 500 MG CAPS 858406 CEPHALEXIN Inactive PREDNISONE 20 MG TAB 2 tabs daily for 3 days, 1 tab daily for 3 days, 1/2 tab daily for 2 days PREDNISONE 20 MG TAB 663452 PREDNISONE Inactive CEFDINIR 300 MG CAPS 1 cap by mouth twice a day CEFDINIR 300 MG CAPS 540983 CEFDINIR Inactive PREDNISONE 20 MG TAB 2 tabs daily for 3 days, 1 tab daily for 3 days, 1/2 tab daily for 2 days PREDNISONE 20 MG TAB 857615 PREDNISONE Inactive PREDNISONE 20 MG TAB 2 tabs daily for 3 days, 1 tab daily for 3 days, 1/2 tab daily for 2 days PREDNISONE 20 MG TAB 005147 PREDNISONE Inactive Immunizations Vaccine Administration Date Value Standard Description Human Papillomavirus vaccine (Gardasil) #2, (HPV #2) Gardasil [ CVX62] human papilloma virus vaccine, quadrivalent Seasonal influenza vaccine, injectable, containing preservative, for > 3 years old (Afluria, FluLaval, Fluzone, Fluvirin, Fluarix, Agriflu(>=18 yo)) Fluzone (>3 yrs.) [[id number]] Influenza, seasonal, injectable Human Papillomavirus Vaccine (Gardasil) #1 Given (HPV #1) Gardasil [CVX62] human papilloma virus vaccine, quadrivalent hepatitis A immunization #2 Havrix-Pedi hepatitis A vaccine, unspecified formulation Boostrix (Tetanus toxoid, reduced diphtheria toxoid and acellular pertussis vaccine, adsorbed), booster Boostrix [[id number]] tetanus toxoid, reduced diphtheria toxoid, and acellular [...] Negative Encounters Code Encounter Date Provider Facility CPT-04092 Level 3 Est. [facility] 15[facility]45:[facility] Patient 14:15:52 CDT Daniele Mcfadden [facility] CPT-85541 Level 3 Est. Patient 13:57:19 VP INFORMATICS Margarito Kelley MD [facility] CPT-05362 Level 3 Est. Patient 09:16:05 VP INFORMATICS Margarito Kelley MD [facility] CPT-72380 Level 3 Est. Patient 15:37:06 VP INFORMATICS Daniele Mcfadden [facility] CPT-02046 Level 3 Est. Patient 11:56:34 VP INFORMATICS Renée Crowderray JOHNSON [facility] CPT-37161 Level 3 Est. Patient 12:19:42 CDT Daniele Mcfadden [facility] CPT-47230 Level 3 Est. Patient 11:08:45 CDT Annita Mejia MD PhD [facility] CPT-57801 Level 3 Est. Patient 12:00:17 CDT Kendell Coronado MD [facility] CPT-71115 Level 3 Est. Patient 12:27:25 CDT Daniele Mcfadden [facility] CPT-07688 Level 3 Est. Patient 18:45:11 VP INFORMATICS Daniele Mcfadden [facility] CPT-23579 Level 3 Est. Patient 10:12:24 VP INFORMATICS Daniele Mcfadden DO [facility] CPT-18186 Level 3 Est. Patient 14:35:11 VP INFORMATICS Daniele Mcfadden [facility] CPT-87100 Level 3 Est. Patient 14:11:04 CDT Daniele Mcfadden [facility] CPT-27160 Level 3 Est. Patient 10:52:13 CDT Alexander LOPEZ [facility] CPT-11269 Level 3 Est. Patient 11:01:08 VP INFORMATICS Daniele Mcfadden [facility] CPT-18077 Level 3 Est. Patient 10:55:35 CDT Daniele Mcfadden [facility] CPT-37520 Level 3 Est. Patient 14:03:08 CDT Daniele Mcfadden [facility] CPT-67885 Level 3 Est. Patient 11:26:19 CDT Margarito Kelley MD [facility] CPT-77719 Level 2 Est. Patient 15:32:04 VP INFORMATICS Daniele Mcfadden [facility] CPT-26694 Level 3 Est. Patient 16:01:26 VP INFORMATICS Daniele Mcfadden [facility] CPT-21286 Level 3 Est. Patient 06:37:10 VP INFORMATICS Daniele Mcfadden [facility] Procedures Code Procedure Name Date Entry Date Standard Description CPT-29437 Rapid Strep (Grp A) - LAB USE ONLY 13:06:06 CDT CPT-79617 Abd compl w upright 12:34:39 CDT CPT-47401 Immunization Single Admin 11:38:41 CDT CPT-14947 Fluzone Quadrivalent Intramuscular Suspension 0.5 ML 11: 38:41 CDT CPT-OV Office Visit 14:45:12 VP INFORMATICS CPT-28198 Sono abd com inc all organs plus proximal aorta and distal IVC 2012 12:13:02 VP INFORMATICS CPT-95128 Abd compl w upright 15:12:58 VP INFORMATICS CPT-06508 Venipuncture Draw Fee 14:38:32 VP INFORMATICS CPT-33704 Administration single or combination vaccine inc oral 17 :10:04 CDT CPT-89809 Gardasil 17:10:04 CDT CPT-20126 Venipuncture Draw Fee 16:07:54 VP INFORMATICS CPT-17745 Administration 2+ single or combination vaccines inc oral 17:22:02 CDT CPT-60686 Administration single or combination vaccine inc oral 17 :22:02 CDT CPT-66495 Influenza split virus > age 3 17:22:02 CDT CPT-91389 Gardasil 17:22:02 CDT CPT-23109 Administration 2+ single or combination vaccines inc oral 14:38:31 CDT CPT-55035 Administration single or combination vaccine inc oral 14 :38:31 CDT CPT-77883 Meningococcal Conjugate Vacine (Menactra) 14:38:31 CDT CPT-10528 Gardasil 14:38:31 CDT
--- OUTSIDE RECORDS SUMMARY | 2018-02-15 06:35 | XMS REPORT | Clinical Summary ---
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 INSPECTOR Unspecified sinusitis (chronic) Eustachian tube dysfunction, [...] tablet once daily for 2 days PREDNISONE 32148746323 Active Daniele Mcfadden DO Active PREDNISONE 20 MG TAB 2 tabs daily for 3 days, 1 tab daily for 3 days, 1/2 tab daily for 2 days PREDNISONE 78369184751 No Longer Active Margarito Kelley MD Active IRVING-D ALLERGY & CONGESTION BH56M-CIX 1 po bid FEXOFENADINE-PSEUDOEPHEDRINE ZG67G-MSP 48638971284 No Longer Active Margarito Kelley MD Active PREDNISONE 20 MG TAB 2 tabs daily for 3 days, 1 tab daily for 3 days, 1/2 tab daily for 2 days PREDNISONE 80909498232 No Longer Active Jillina Frazell ALEX Active CEFDINIR 300 MG CAPS 1 cap by mouth twice a day CEFDINIR 03817065631 No Longer Active Jillina Frazell TOOTH INSPECTOR Active E-Z SPACER ERIBERTO use with proair inhalier every 4 times as need. SPACER/AERO-HOLDING CHAMBERS 84535848934 No Longer Active Jillina Frazell TOOTH INSPECTOR Active PROAIR HFA 108 (90 BASE) MCG/ACT AERS 2 puffs every 4 hours as needed 2014 ALBUTEROL SULFATE 17383259523 No Longer Active Jillina Frazell TOOTH INSPECTOR Active CEFTIN 500 MG TAB 1 tablet by mouth twice daily for ten days. CEFUROXIME AXETIL 27683997143 No Longer Active Ezekielllina Framarkl ALEX Active PREDNISONE 20 MG TAB 2 tabs daily for 3 days, 1 tab daily for 3 days, 1/2 tab daily for 2 days PREDNISONE 94499868961 No Longer Active Margarito Kelley MD Active CEPHALEXIN 500 MG CAPS 1 tablet by mouth three times daily for ten days 06/25 CEPHALEXIN 08535765712 No Longer Active Renée Adames APRN Active MEDROL (MARY) 4 MG TABS 6 pills on day 1, 5 pills on day 2, 4 pills on day 3, 4 pills on day 4, 2 pills on day 5, 1 pill on day 6 METHYLPREDNISOLONE 13986412405 No Longer Active Annita Mejia MD PhD Active ZITHROMAX Z-MARY 250 MG TABS 2 today and then 1 daily for 4 days AZITHROMYCIN 46526065156 No Longer Active Annita Mejia MD PhD Active GUAIFENESIN-CODEINE 100-10 MG/5ML SYRP 5ml every 4 to 6 hours as needed for cough GUAIFENESIN-CODEINE 28268095776 No Longer Active Annita Mejia MD PhD Active FLONASE 50 MCG/ACT SUSP 1 spray each nostril am and hs FLUTICASONE PROPIONATE 87238831673 No Longer Active Kendell Coronado MD Active MELOXICAM 15 MG TABS 1 po q day for pain with food MELOXICAM 80141102186 No Longer Active Kendell Coronado MD Active HYDROCODONE-ACETAMINOPHEN 5-325 MG TABS 1-2 q 4-6 hrs prn pain 20 tabs 07/04 HYDROCODONE-ACETAMINOPHEN 34257340931 No Longer Active Daniele Mcfadden DO Active PREDNISONE 20 MG TAB 1 tablet twice daily for 2 days, then 1 tablet once daily for 2 days PREDNISONE 35506072321 No Longer Active Daniele Mcfadden DO Active PREDNISONE 20 MG TAB 1 po bid 2 days, then daily for 2 days 12/27 PREDNISONE 71061047896 No Longer Active Alexander LOPEZ Active AZITHROMYCIN 250 MG TABS 2 po qd x 1 day, then 1 po qd x 4 days AZITHROMYCIN 10496513997 No Longer Active Daniele Mcfadden DO Active MUCINEX MAXIMUM STRENGTH [id number] 1 po qd GUAIFENESIN XR12H- TAB 66124088995 No Longer Active Daniele Mcfadden DO Active AZITHROMYCIN 250 MG TABS 2 po qd x 1 day, then 1 po qd x 4 days AZITHROMYCIN 15007378770 No Longer Active Margarito Kelley MD Active MUCINEX MAXIMUM STRENGTH LP21E-HTH 1 po qd MUCINEX MAXIMUM STRENGTH EG51K-IJD GUAIFENESIN QQ33O-KRK Inactive PREDNISONE 20 MG TAB 1 po bid 2 days, then daily for 2 days 12/27 PREDNISONE 20 MG TAB 247012 PREDNISONE Inactive PREDNISONE 20 MG TAB 1 tablet twice daily for 2 days, then 1 tablet once daily for 2 days PREDNISONE 20 MG TAB 126507 PREDNISONE Inactive HYDROCODONE-ACETAMINOPHEN 5-325 MG TABS 1-2 q 4-6 hrs prn pain 20 tabs 07/04 HYDROCODONE-ACETAMINOPHEN 5-325 MG TABS 520776 HYDROCODONE- ACETAMINOPHEN Inactive MELOXICAM 15 MG TABS 1 po q day for pain with food MELOXICAM 15 MG TABS 327034 MELOXICAM Inactive FLONASE 50 MCG/ACT SUSP 1 spray each nostril am and hs FLONASE 50 MCG/ACT SUSP FLUTICASONE PROPIONATE Inactive GUAIFENESIN-CODEINE 100-10 MG/5ML SYRP 5ml every 4 to 6 hours as needed for cough GUAIFENESIN-CODEINE 100-10 MG/5ML SYRP 463230 GUAIFENESIN-CODEINE Inactive ZITHROMAX Z-MARY 250 MG TABS 2 today and then 1 daily for 4 days ZITHROMAX Z-MARY 250 MG TABS 3003054 AZITHROMYCIN Inactive CEFTIN 500 MG TAB 1 tablet by mouth twice daily for ten days. CEFTIN 500 MG TAB 055223 CEFUROXIME AXETIL Inactive PROAIR HFA 108 (90 BASE) MCG/ACT AERS 2 puffs every 4 hours as needed 2014 PROAIR HFA 108 (90 BASE) MCG/ACT AERS ALBUTEROL SULFATE Inactive E-Z SPACER ERIBERTO use with proair inhalier every 4 times as need. E-Z SPACER ERIBERTO SPACER/AERO-HOLDING CHAMBERS Inactive IRVING-D ALLERGY & CONGESTION [id number] 1 po bid IRVING-D ALLERGY & CONGESTION [id number] FEXOFENADINE-PSEUDOEPHEDRINE XR12H- TAB Inactive AZITHROMYCIN 250 MG TABS 2 po qd x 1 day, then 1 po qd x 4 days AZITHROMYCIN 250 MG TABS 6387888 AZITHROMYCIN Inactive AZITHROMYCIN 250 MG TABS 2 po qd x 1 day, then 1 po qd x 4 days AZITHROMYCIN 250 MG TABS 6467453 AZITHROMYCIN Inactive MEDROL (MARY) 4 MG TABS 6 pills on day 1, 5 pills on day 2, 4 pills on day 3, 4 pills on day 4, 2 pills on day 5, 1 pill on day 6 MEDROL (MARY) 4 MG TABS 594445 METHYLPREDNISOLONE Inactive CEPHALEXIN 500 MG CAPS 1 tablet by mouth three times daily for ten days 06/25 CEPHALEXIN 500 MG CAPS 616837 CEPHALEXIN Inactive PREDNISONE 20 MG TAB 2 tabs daily for 3 days, 1 tab daily for 3 days, 1/2 tab daily for 2 days PREDNISONE 20 MG TAB 405282 PREDNISONE Inactive CEFDINIR 300 MG CAPS 1 cap by mouth twice a day CEFDINIR 300 MG CAPS 438328 CEFDINIR Inactive PREDNISONE 20 MG TAB 2 tabs daily for 3 days, 1 tab daily for 3 days, 1/2 tab daily for 2 days PREDNISONE 20 MG TAB 328323 PREDNISONE Inactive PREDNISONE 20 MG TAB 2 tabs daily for 3 days, 1 tab daily for 3 days, 1/2 tab daily for 2 days PREDNISONE 20 MG TAB 461941 PREDNISONE Inactive Immunizations Vaccine Administration Date Value Standard Description Seasonal influenza vaccine, injectable, containing preservative, for > 3 years old (Afluria, FluLaval, Fluzone, Fluvirin, Fluarix, Agriflu(>=18 yo)) Fluzone (>3 yrs.) [[id number]] Influenza, seasonal, injectable Human Papillomavirus vaccine (Gardasil) #2, (HPV #2) Gardasil [ CVX62] human papilloma virus vaccine, quadrivalent Human Papillomavirus Vaccine (Gardasil) #1 Given (HPV #1) Gardasil [CVX62] human papilloma virus vaccine, quadrivalent hepatitis A immunization #2 Havrix-Pedi hepatitis A vaccine, unspecified formulation Boostrix (Tetanus toxoid, reduced diphtheria toxoid and acellular pertussis vaccine, adsorbed), booster Boostrix [[id number]] tetanus toxoid, reduced diphtheria toxoid, and acellular [...] Negative Encounters Code Encounter Date Provider Facility CPT-48593 Level 3 Est. Patient 14:15:52 CDT Daniele Mcfadden [facility] CPT-44240 Level 3 Est. Patient 13:57:19 BUN PANNER Margarito Kelley MD [facility] CPT-05454 Level 3 Est. Patient 09:16:05 BUN PANNER Margarito Kelley MD [facility] CPT-28021 Level 3 Est. Patient 15:37:06 BUN PANNER Daniele Mcfadden DO [facility] CPT-01153 Level 3 Est. Patient 11:56:34 BUN PANNER Renée Adames APRN [facility] CPT-04973 Level 3 Est. Patient 12:19:42 CDT Daniele Mcfadden DO [facility] CPT-00251 Level 3 Est. Patient 11:08:45 CDT Annita Mejia MD PhD [facility] CPT-87858 Level 3 Est. Patient 12:00:17 CDT Kendell Coronado MD [facility] CPT-50046 Level 3 Est. Patient 12:27:25 CDT Daniele Mcfadden [facility] CPT-98881 Level 3 Est. Patient 18:45:11 BUN PANNER Daniele Gaetano Mcfadden [facility] CPT-59008 Level 3 Est. Patient 10:12:24 BUN PANNER Daniele Mcfadden [facility] CPT-67499 Level 3 Est. Patient 14:35:11 BUN PANNER Daniele Mcfadden [facility] CPT-56465 Level 3 Est. Patient 14:11:04 CDT Daniele Mcfadden [facility] CPT-19144 Level 3 Est. Patient 10:52:13 CDT Alexander LOPEZ [facility] CPT-29565 Level 3 Est. Patient 11:01:08 BUN PANNER Daniele Mcfadden [facility] CPT-01932 Level 3 Est. Patient 10:55:35 CDT Daniele Mcfadden [facility] CPT-72379 Level 3 Est. Patient 14:03:08 CDT Daniele Mcfadden [facility] CPT-15879 Level 3 Est. Patient 11:26:19 CDT Margarito Kelley MD [facility] CPT-73890 Level 2 Est. Patient 15:32:04 BUN PANNER Daniele Mcfadden [facility] CPT-52753 Level 3 Est. Patient 16:01:26 BUN PANNER Daniele Mcfadden [facility] CPT-54138 Level 3 Est. Patient 06:37:10 BUN PANNER Daniele Mcfadden [facility] Procedures Code Procedure Name Date Entry Date Standard Description CPT-06216 Rapid Strep (Grp A) - LAB USE ONLY 13:06:06 CDT CPT-48958 Abd compl w upright 12:34:39 CDT CPT-15898 Immunization Single Admin 11:38:41 CDT CPT-65505 Fluzone Quadrivalent Intramuscular Suspension 0.5 ML 11: 38:41 CDT CPT-OV Office Visit 14:45:12 BUN PANNER CPT-21939 Sono abd com inc all organs plus proximal aorta and distal IVC 2012 12:13:02 BUN PANNER CPT-80427 Abd compl w upright 15:12:58 BUN PANNER CPT-36091 Venipuncture Draw Fee 14:38:32 BUN PANNER CPT-77397 Administration single or combination vaccine inc oral 17 :10:04 CDT CPT-49371 Gardasil 17:10:04 CDT CPT-66023 Venipuncture Draw Fee 16:07:54 BUN PANNER CPT-48199 Administration 2+ single or combination vaccines inc oral 17:22:02 CDT CPT-76686 Administration single or combination vaccine inc oral 17 :22:02 CDT CPT-43393 Influenza split virus > age 3 17:22:02 CDT CPT-64370 Gardasil 17:22:02 CDT CPT-40268 Administration 2+ single or combination vaccines inc oral 14:38:31 CDT CPT-62955 Administration single or combination vaccine inc oral 14 :38:31 CDT CPT-20689 Meningococcal Conjugate Vacine (Menactra) 14:38:31 CDT CPT-75664 Gardasil 14:38:31 CDT
--- OUTSIDE RECORDS SUMMARY | 2018-02-15 06:36 | XMS REPORT | Clinical Summary ---
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 Unspecified sinusitis (chronic) Eustachian tube dysfunction, right 381.81 Active Margarito Kelley MD Dysfunction of Eustachian tube Pharyngitis-Acute 462 Active Daniele Mcfadden DO Acute pharyngitis CONCUSSION WITH LOC OF 30 MINUTES OR [...] Ankle sprain ICD-845.00 Inactive Kendell Coronado MD BRONCHITIS, ACUTE ICD-466.0 Inactive Errol Pack MD ALLERGIC RHINITIS ICD-477.9 Inactive Errol Pack MD Sinusitis, acute ICD-461.9 Inactive Margarito Kelley MD Fatigue ICD-780.79 Inactive Margarito Kelley MD 2014 Vaccination against influenza ICD-V04.81 Inactive Margarito Kelley MD Flank pain, right ICD-789.09 Inactive Margarito Kelley MD Pharyngitis, acute ICD-462 Inactive Margarito Kelley MD Knee pain, left ICD-719.46 Inactive Margarito Kelley MD Pharyngitis ICD-462 Inactive Annita Mejia MD PhD Medication List Medication Instructions Start Date Stop Date Generic Name NDC Status Provider Patient Instruction PREDNISONE 20 MG TAB 1 tablet twice daily for 2 days, then 1 tablet once daily for 2 days PREDNISONE 05140463913 Active Daniele Mcfadden DO Active PREDNISONE 20 MG TAB 2 tabs daily for 3 days, 1 tab daily for 3 days, 1/2 tab daily for 2 days PREDNISONE 35080052436 No Longer Active Margarito Kelley MD Active IRVING-D ALLERGY & CONGESTION [id number] 1 po bid FEXOFENADINE-PSEUDOEPHEDRINE [id number] 77630231162 No Longer Active Margarito Kelley MD Active PREDNISONE 20 MG TAB 2 tabs daily for 3 days, 1 tab daily for 3 days, 1/2 tab daily for 2 days PREDNISONE 75443004659 No Longer Active Jillina Frazell ALEX Active CEFDINIR 300 MG CAPS 1 cap by mouth twice a day CEFDINIR 99018526948 No Longer Active Jillina Frazell DIABETES EDUCATION COORDINATOR Active E-Z SPACER REIBERTO use with proair inhalier every 4 times as need. SPACER/AERO-HOLDING CHAMBERS 14981433102 No Longer Active Jillina Frazell DIABETES EDUCATION COORDINATOR Active PROAIR HFA 108 (90 BASE) MCG/ACT AERS 2 puffs every 4 hours as needed 2014 ALBUTEROL SULFATE 72282245287 No Longer Active Jillina Frazell DIABETES EDUCATION COORDINATOR Active CEFTIN 500 MG TAB 1 tablet by mouth twice daily for ten days. CEFUROXIME AXETIL 95323150874 No Longer Active Ezekielllina Framarkl ALEX Active PREDNISONE 20 MG TAB 2 tabs daily for 3 days, 1 tab daily for 3 days, 1/2 tab daily for 2 days PREDNISONE 69691601023 No Longer Active Margarito Kelley MD Active CEPHALEXIN 500 MG CAPS 1 tablet by mouth three times daily for ten days 06/25 CEPHALEXIN 78236070606 No Longer Active Renée Adames APRN Active MEDROL (MARY) 4 MG TABS 6 pills on day 1, 5 pills on day 2, 4 pills on day 3, 4 pills on day 4, 2 pills on day 5, 1 pill on day 6 METHYLPREDNISOLONE 49276125848 No Longer Active Annita Mejia MD PhD Active ZITHROMAX Z-MARY 250 MG TABS 2 today and then 1 daily for 4 days AZITHROMYCIN 79311519599 No Longer Active Annita Mejia MD PhD Active GUAIFENESIN-CODEINE 100-10 MG/5ML SYRP 5ml every 4 to 6 hours as needed for cough GUAIFENESIN-CODEINE 96374786814 No Longer Active Annita Mejia MD PhD Active FLONASE 50 MCG/ACT SUSP 1 spray each nostril am and hs FLUTICASONE PROPIONATE 08480829373 No Longer Active Kendell Coronado MD Active MELOXICAM 15 MG TABS 1 po q day for pain with food MELOXICAM 28651932830 No Longer Active Kendell Coronado MD Active HYDROCODONE-ACETAMINOPHEN 5-325 MG TABS 1-2 q 4-6 hrs prn pain 20 tabs 07/04 HYDROCODONE-ACETAMINOPHEN 48583144636 No Longer Active Daniele Mcfadden DO Active PREDNISONE 20 MG TAB 1 tablet twice daily for 2 days, then 1 tablet once daily for 2 days PREDNISONE 97965210712 No Longer Active Daniele Mcfadden DO Active PREDNISONE 20 MG TAB 1 po bid 2 days, then daily for 2 days 12/27 PREDNISONE 90348845871 No Longer Active Alexander LOPEZ Active AZITHROMYCIN 250 MG TABS 2 po qd x 1 day, then 1 po qd x 4 days AZITHROMYCIN 54102728565 No Longer Active Daniele Mcfadden DO Active MUCINEX MAXIMUM STRENGTH [id number] 1 po qd GUAIFENESIN XR12H- TAB 46179044292 No Longer Active Daniele Mcfadden DO Active AZITHROMYCIN 250 MG TABS 2 po qd x 1 day, then 1 po qd x 4 days AZITHROMYCIN 44951165690 No Longer Active Margarito Kelley MD Active MUCINEX MAXIMUM STRENGTH [id number] 1 po qd MUCINEX MAXIMUM STRENGTH [id number]-TBY GUAIFENESIN [id number] Inactive PREDNISONE 20 MG TAB 1 po bid 2 days, then daily for 2 days 12/27 PREDNISONE 20 MG TAB 366242 PREDNISONE Inactive PREDNISONE 20 MG TAB 1 tablet twice daily for 2 days, then 1 tablet once daily for 2 days PREDNISONE 20 MG TAB 006681 PREDNISONE Inactive HYDROCODONE-ACETAMINOPHEN 5-325 MG TABS 1-2 q 4-6 hrs prn pain 20 tabs 07/04 HYDROCODONE-ACETAMINOPHEN 5-325 MG TABS 744545 HYDROCODONE- ACETAMINOPHEN Inactive MELOXICAM 15 MG TABS 1 po q day for pain with food MELOXICAM 15 MG TABS 602625 MELOXICAM Inactive FLONASE 50 MCG/ACT SUSP 1 spray each nostril am and hs FLONASE 50 MCG/ACT SUSP FLUTICASONE PROPIONATE Inactive GUAIFENESIN-CODEINE 100-10 MG/5ML SYRP 5ml every 4 to 6 hours as needed for cough GUAIFENESIN-CODEINE 100-10 MG/5ML SYRP 134710 GUAIFENESIN-CODEINE Inactive ZITHROMAX Z-MARY 250 MG TABS 2 today and then 1 daily for 4 days ZITHROMAX Z-MARY 250 MG TABS 3366545 AZITHROMYCIN Inactive CEFTIN 500 MG TAB 1 tablet by mouth twice daily for ten days. CEFTIN 500 MG TAB 657289 CEFUROXIME AXETIL Inactive PROAIR HFA 108 (90 BASE) MCG/ACT AERS 2 puffs every 4 hours as needed 2014 PROAIR HFA 108 (90 BASE) MCG/ACT AERS ALBUTEROL SULFATE Inactive E-Z SPACER ERIBERTO use with proair inhalier every 4 times as need. E-Z SPACER ERIBERTO SPACER/AERO-HOLDING CHAMBERS Inactive IRVING-D ALLERGY & CONGESTION [id number] 1 po bid IRVING-D ALLERGY & CONGESTION [id number] FEXOFENADINE-PSEUDOEPHEDRINE XR12H- TAB Inactive AZITHROMYCIN 250 MG TABS 2 po qd x 1 day, then 1 po qd x 4 days AZITHROMYCIN 250 MG TABS 8581094 AZITHROMYCIN Inactive AZITHROMYCIN 250 MG TABS 2 po qd x 1 day, then 1 po qd x 4 days AZITHROMYCIN 250 MG TABS 0499734 AZITHROMYCIN Inactive MEDROL (MARY) 4 MG TABS 6 pills on day 1, 5 pills on day 2, 4 pills on day 3, 4 pills on day 4, 2 pills on day 5, 1 pill on day 6 MEDROL (MARY) 4 MG TABS 071113 METHYLPREDNISOLONE Inactive CEPHALEXIN 500 MG CAPS 1 tablet by mouth three times daily for ten days 06/25 CEPHALEXIN 500 MG CAPS 824213 CEPHALEXIN Inactive PREDNISONE 20 MG TAB 2 tabs daily for 3 days, 1 tab daily for 3 days, 1/2 tab daily for 2 days PREDNISONE 20 MG TAB 950887 PREDNISONE Inactive CEFDINIR 300 MG CAPS 1 cap by mouth twice a day CEFDINIR 300 MG CAPS 581519 CEFDINIR Inactive PREDNISONE 20 MG TAB 2 tabs daily for 3 days, 1 tab daily for 3 days, 1/2 tab daily for 2 days PREDNISONE 20 MG TAB 530436 PREDNISONE Inactive PREDNISONE 20 MG TAB 2 tabs daily for 3 days, 1 tab daily for 3 days, 1/2 tab daily for 2 days PREDNISONE 20 MG TAB 784641 PREDNISONE Inactive Immunizations Vaccine Administration Date Value Standard Description Human Papillomavirus vaccine (Gardasil) #2, (HPV #2) Gardasil [ CVX62] human papilloma virus vaccine, quadrivalent Seasonal influenza vaccine, injectable, containing preservative, for > 3 years old (Afluria, FluLaval, Fluzone, Fluvirin, Fluarix, Agriflu(>=18 yo)) Fluzone (>3 yrs.) [SRE167] Influenza, seasonal, injectable Human Papillomavirus Vaccine (Gardasil) #1 Given (HPV #1) Gardasil [CVX62] human papilloma virus vaccine, quadrivalent hepatitis A immunization #2 Havrix-Pedi hepatitis A vaccine, unspecified formulation Boostrix (Tetanus toxoid, reduced diphtheria toxoid and acellular pertussis vaccine, adsorbed), booster Boostrix [BVO062] tetanus toxoid, reduced diphtheria toxoid, and acellular [...] Negative Encounters Code Encounter Date Provider Facility CPT-84957 Level 3 Est. Patient 14:15:52 CDT Daniele Mcfadden [facility] CPT-11169 Level 3 Est. Patient 13:57:19 BURLAP WORKER Margarito Kelley MD [facility] CPT-97148 Level 3 Est. Patient 09:16:05 BURLAP WORKER Margarito Kelley MD [facility] CPT-12615 Level 3 Est. Patient 15:37:06 BURLAP WORKER Daniele Mcfadden DO [facility] CPT-90526 Level 3 Est. Patient 11:56:34 BURLAP WORKER Renée Adames APRN [facility] CPT-76955 Level 3 Est. Patient 12:19:42 CDT Daniele Mcfadden DO [facility] CPT-02360 Level 3 Est. Patient 11:08:45 CDT Annita Mejia MD PhD [facility] CPT-31932 Level 3 Est. Patient 12:00:17 CDT Kendell Coronado MD [facility] CPT-01049 Level 3 Est. Patient 12:27:25 CDT Daniele Mcfadden [facility] CPT-07593 Level 3 Est. Patient 18:45:11 BURLAP WORKER Daniele Mcfadden [facility] CPT-33862 Level 3 Est. Patient 10:12:24 BURLAP WORKER Daniele Mcfadden [facility] CPT-93984 Level 3 Est. Patient 14:35:11 BURLAP WORKER Daniele Mcfadden [facility] CPT-86970 Level 3 Est. Patient 14:11:04 CDT Daniele Mcfadden [facility] CPT-59461 Level 3 Est. Patient 10:52:13 CDT Alexander LOPEZ [facility] CPT-68290 Level 3 Est. Patient 11:01:08 BURLAP WORKER Daniele Mcfadden [facility] CPT-20064 Level 3 Est. Patient 10:55:35 CDT Daniele Mcfadden [facility] CPT-56500 Level 3 Est. Patient 14:03:08 CDT Daniele Mcfadden [facility] CPT-92600 Level 3 Est. Patient 11:26:19 CDT Margarito Kelley MD [facility] CPT-07644 Level 2 Est. Patient 15:32:04 BURLAP WORKER Daniele Mcfadden [facility] CPT-98626 Level 3 Est. Patient 16:01:26 BURLAP WORKER Daniele Mcfadden [facility] CPT-13391 Level 3 Est. Patient 06:37:10 BURLAP WORKER Daniele Mcfadden [facility] Procedures Code Procedure Name Date Entry Date Standard Description CPT-04145 Abd compl w upright 12:34:39 CDT CPT-11193 Immunization Single Admin 11:38:41 CDT CPT-60522 Fluzone Quadrivalent Intramuscular Suspension 0.5 ML 11: 38:41 CDT CPT-OV Office Visit 14:45:12 BURLAP WORKER CPT-18191 [employer] inc all organs plus proximal aorta and distal IVC 2012 12:13:02 BURLAP WORKER CPT-10616 Abd compl w upright 15:12:58 BURLAP WORKER CPT-92735 Venipuncture Draw Fee 14:38:32 BURLAP WORKER CPT-00207 Administration single or combination vaccine inc oral 17 :10:04 CDT CPT-84374 Gardasil 17:10:04 CDT CPT-75620 Venipuncture Draw Fee 16:07:54 BURLAP WORKER CPT-38707 Administration 2+ single or combination vaccines inc oral 17:22:02 CDT CPT-93977 Administration single or combination vaccine inc oral 17 :22:02 CDT CPT-11432 Influenza split virus > age 3 17:22:02 CDT CPT-20162 Gardasil 17:22:02 CDT CPT-98831 Administration 2+ single or combination vaccines inc oral 14:38:31 CDT CPT-71052 Administration single or combination vaccine inc oral 14 :38:31 CDT CPT-03311 Meningococcal Conjugate Vacine (Menactra) 14:38:31 CDT CPT-05017 Gardasil 14:38:31 CDT
--- OUTSIDE RECORDS SUMMARY | 2018-02-15 06:36 | XMS REPORT | Clinical Summary ---
Author Author Admin, [facility] Organization [facility] Address Unknown Phone Unavailable Allergies, Adverse [...] MD Biliary dyskinesia ICD-575.8 Inactive Katie Gipson WIRE TESTER U R I ICD-465.9 Inactive Daniele Mcfadden [...] tube dysfunction, right ICD-381.81 Inactive Katie Gipson WIRE TESTER Pharyngitis-Acute ICD-462 Inactive Katie Gipson WIRE TESTER URI ICD-465.9 Inactive Katie Gipson WIRE TESTER Allergic rhinitis ICD-477.9 Inactive Katie Gipson WIRE TESTER Acute rhinosinusitis ICD-461.9 Inactive Katie Gipson LPN [...] today, then 1 tab tomorrow 08/30 PREDNISONE [id number] No Longer Active Daniele Mcfadden DO Active FLUTICASONE PROPIONATE 50 MCG/ACT NASAL SUSPENSION 1 spray each nostril twice daily until bottle empty FLUTICASONE PROPIONATE 22340748265 Active Daniele Mcfadden DO Active PREDNISONE 10 MG ORAL TABLET 2 TABS BY MOUTH TODAY, THEN 1 TAB BY MOUTH DAYS 2 -5 PREDNISONE 51026267886 No Longer Active Daniele Mcfadden DO Active PREDNISONE 20 MG ORAL TABLET two tabs by mouth today, then one tab by mouth days two and three PREDNISONE 47491638306 No Longer Active Whitley Hernandez Active AZITHROMYCIN 250 MG ORAL TABLET 2 po qd x 1 day, then 1 po qd x 4 days 07/24 AZITHROMYCIN 65949322566 No Longer Active Daniele Mcfadden DO Active IRVING-D ALLERGY & CONGESTION 60-120 MG ORAL TABLET EXTENDED RELEASE 12 HOUR 1 tablet twice daily as needed for congestion/allergies FEXOFENADINE-PSEUDOEPHEDRINE 21208315225 Active Holly Sharma Active PREDNISONE 20 MG ORAL TABLET 2 tabs daily for 3 days, 1 tab daily for 3 days, 1/2 tab daily for 2 days start tomorrow 07/31/16 PREDNISONE 73090877716 No Longer Active Jillina Frazell MINE EQUIPMENT DESIGN ENGINEER Active AZITHROMYCIN 250 MG ORAL TABLET 2 po qd x 1 day, then 1 po qd x 4 days 08/30 AZITHROMYCIN 02875079012 No Longer Active Jillina Jiml MINE EQUIPMENT DESIGN ENGINEER Active MUCINEX D 60-600 MG ORAL TABLET EXTENDED RELEASE 12 HOUR 1 po BID PRN Congestion PSEUDOEPHEDRINE-GUAIFENESIN 93740823562 No Longer Active Jessika Nunes APRN Active CEFDINIR 300 MG ORAL CAPSULE 1 po BID x 10 days CEFDINIR 10998815360 No Longer Active Ezekielllina Alexandru MINE EQUIPMENT DESIGN ENGINEER Active PREDNISONE 20 MG ORAL TABLET 2 tabs daily for 3 days, 1 tab daily for 3 days, 1/2 tab daily for 2 days PREDNISONE 56568733580 No Longer Active Ezekielllina Jiml MINE EQUIPMENT DESIGN ENGINEER Active FLUTICASONE PROPIONATE 50 MCG/ACT NASAL SUSPENSION 1 to 2 sprays each nostril daily FLUTICASONE PROPIONATE 44718584723 No Longer Active Ezekielllina Alexandru MINE EQUIPMENT DESIGN ENGINEER Active GUAIFENESIN ER 600 MG ORAL TABLET EXTENDED RELEASE 12 HOUR 1 twice a day as needed for congestion GUAIFENESIN 90425832377 No Longer Active Ezekielllina Alexandru MINE EQUIPMENT DESIGN ENGINEER Active CEFDINIR 300 MG ORAL CAPSULE by mouth twice a day CEFDINIR 22425154171 No Longer Active Ezekielllina Alexandru ONTIVEROSN Active PREDNISONE 20 MG ORAL TABLET 1 tablet twice daily for 2 days, then 1 tablet once daily for 2 days PREDNISONE 85613508791 No Longer Active Jillina Jiml MINE EQUIPMENT DESIGN ENGINEER Active PREDNISONE 20 MG ORAL TABLET 2 tabs daily for 3 days, 1 tab daily for 3 days, 1/2 tab daily for 2 days PREDNISONE 65251503558 No Longer Active Margarito Kelley MD Active IRVING-D ALLERGY & CONGESTION TABLET EXTENDED RELEASE 12 HOUR 1 po bid 05/26 FEXOFENADINE-PSEUDOEPHEDRINE [id number] 02913344526 No Longer Active Margarito Kelley MD Active PREDNISONE 20 MG ORAL TABLET 2 tabs daily for 3 days, 1 tab daily for 3 days, 1/2 tab daily for 2 days PREDNISONE 75704046696 No Longer Active Ezekielllina Fratracey JOHNSON Active CEFDINIR 300 MG ORAL CAPSULE 1 cap by mouth twice a day CEFDINIR 94753244646 No Longer Active Jillina Frazell MINE EQUIPMENT DESIGN ENGINEER Active E-Z SPACER DEVICE use with proair inhalier every 4 times as need. SPACER/AERO-HOLDING CHAMBERS 86531076901 No Longer Active Jillina Framarkl ALEX Active PROAIR HFA 108 (90 Base) MCG/ACT INHALATION AEROSOL SOLUTION 2 puffs every 4 hours as needed ALBUTEROL SULFATE 68090466127 No Longer Active Ezekielllsd Fernandezl MINE EQUIPMENT DESIGN ENGINEER Active CEFTIN 500 MG ORAL TABLET 1 tablet by mouth twice daily for ten days. CEFUROXIME AXETIL 03196031211 No Longer Active Griselda Horvath APRN Active PREDNISONE 20 MG ORAL TABLET 2 tabs daily for 3 days, 1 tab daily for 3 days, 1/2 tab daily for 2 days PREDNISONE 88077854364 No Longer Active Margarito Kelley MD Active CEPHALEXIN 500 MG ORAL CAPSULE 1 tablet by mouth three times daily for ten days CEPHALEXIN 10054956523 No Longer Active Renée Adames APRN Active MEDROL 4 MG ORAL TABLET THERAPY PACK 6 pills on day 1, 5 pills on day 2, 4 pills on day 3, 4 pills on day 4, 2 pills on day 5, 1 pill on day 6 METHYLPREDNISOLONE 64943700611 No Longer Active Annita Mejia MD PhD Active ZITHROMAX Z-MARY 250 MG ORAL TABLET 2 today and then 1 daily for 4 days 03/11 AZITHROMYCIN 49192242152 No Longer Active Annita Mejia MD PhD Active GUAIFENESIN-CODEINE 100-10 MG/5ML ORAL SYRUP 5ml every 4 to 6 hours as needed for cough GUAIFENESIN-CODEINE 46679442335 No Longer Active Annita Mejia MD PhD Active FLONASE 50 MCG/ACT NASAL SUSPENSION 1 spray each nostril am and hs FLUTICASONE PROPIONATE 07641344771 No Longer Active Kendell Coronado MD Active MELOXICAM 15 MG ORAL TABLET 1 po q day for pain with food MELOXICAM 06414893386 No Longer Active Kendell Coronado MD Active HYDROCODONE-ACETAMINOPHEN 5-325 MG ORAL TABLET 1-2 q 4-6 hrs prn pain 20 tabs HYDROCODONE-ACETAMINOPHEN 98226909742 No Longer Active Daniele Mcfadden DO Active PREDNISONE 20 MG ORAL TABLET 1 tablet twice daily for 2 days, then 1 tablet once daily for 2 days PREDNISONE 96337249698 No Longer Active Daniele Mcfadden DO Active PREDNISONE 20 MG ORAL TABLET 1 po bid 2 days, then daily for 2 days PREDNISONE 07847956783 No Longer Active Alexander LOPEZ Active AZITHROMYCIN 250 MG ORAL TABLET 2 po qd x 1 day, then 1 po qd x 4 days 08/05 AZITHROMYCIN 84058204918 No Longer Active Daniele Mcfadden DO Active MUCINEX MAXIMUM STRENGTH TABLET EXTENDED RELEASE 12 HOUR 1 po qd GUAIFENESIN [id number] 84436806084 No Longer Active Daniele Mcfadden DO Active AZITHROMYCIN 250 MG ORAL TABLET 2 po qd x 1 day, then 1 po qd x 4 days 11/26 AZITHROMYCIN 59161992420 No Longer Active Margarito Kelley MD Active MUCINEX MAXIMUM STRENGTH TABLET EXTENDED RELEASE 12 HOUR 1 po qd MUCINEX MAXIMUM STRENGTH TABLET EXTENDED RELEASE 12 HOUR GUAIFENESIN [id number] Inactive PREDNISONE 20 MG ORAL TABLET 1 po bid 2 days, then daily for 2 days PREDNISONE 20 MG ORAL TABLET 123015 PREDNISONE Inactive PREDNISONE 20 MG ORAL TABLET 1 tablet twice daily for 2 days, then 1 tablet once daily for 2 days PREDNISONE 20 MG ORAL TABLET 970083 PREDNISONE Inactive HYDROCODONE-ACETAMINOPHEN 5-325 MG ORAL TABLET 1-2 q 4-6 hrs prn pain 20 tabs HYDROCODONE-ACETAMINOPHEN 5-325 MG ORAL TABLET 672810 HYDROCODONE-ACETAMINOPHEN Inactive MELOXICAM 15 MG ORAL TABLET 1 po q day for pain with food MELOXICAM 15 MG ORAL TABLET 660869 MELOXICAM Inactive FLONASE 50 MCG/ACT NASAL SUSPENSION 1 spray each nostril am and hs FLONASE 50 MCG/ACT NASAL SUSPENSION 9221981 FLUTICASONE PROPIONATE Inactive GUAIFENESIN-CODEINE 100-10 MG/5ML ORAL SYRUP 5ml every 4 to 6 hours as needed for cough GUAIFENESIN-CODEINE 100-10 MG/5ML ORAL SYRUP 613623 GUAIFENESIN-CODEINE Inactive ZITHROMAX Z-MARY 250 MG ORAL TABLET 2 today and then 1 daily for 4 days 03/11 ZITHROMAX Z-MARY 250 MG ORAL TABLET 324612 AZITHROMYCIN Inactive CEFTIN 500 MG ORAL TABLET [...] CONGESTION TABLET EXTENDED RELEASE 12 HOUR FEXOFENADINE-PSEUDOEPHEDRINE [id number] Inactive PREDNISONE 20 MG ORAL TABLET 1 tablet twice daily for 2 days, then 1 tablet once daily for 2 days PREDNISONE 20 MG ORAL TABLET 298373 PREDNISONE Inactive GUAIFENESIN ER 600 MG ORAL TABLET EXTENDED RELEASE 12 HOUR 1 twice a day as needed for congestion GUAIFENESIN ER 600 MG ORAL TABLET EXTENDED RELEASE 12 HOUR GUAIFENESIN Inactive FLUTICASONE PROPIONATE 50 MCG/ACT NASAL SUSPENSION 1 to 2 sprays each nostril daily FLUTICASONE PROPIONATE 50 MCG/ACT NASAL SUSPENSION 9431668 FLUTICASONE PROPIONATE Inactive MUCINEX D 60-600 MG ORAL TABLET EXTENDED RELEASE 12 HOUR 1 po BID PRN Congestion MUCINEX D 60-600 MG ORAL TABLET EXTENDED RELEASE 12 HOUR PSEUDOEPHEDRINE-GUAIFENESIN Inactive PREDNISONE 20 MG ORAL TABLET two tabs by mouth today, then one tab by mouth days two and three PREDNISONE 20 MG ORAL TABLET 326863 PREDNISONE Inactive PREDNISONE 10 MG ORAL TABLET 2 TABS BY MOUTH TODAY, THEN 1 TAB BY MOUTH DAYS 2 -5 PREDNISONE 10 MG ORAL TABLET 464696 PREDNISONE Inactive PREDNISONE 20 MG ORAL TABLET 2 tabs by mouth today, then 1 tab tomorrow 08/30 PREDNISONE 20 MG ORAL TABLET 239569 PREDNISONE Inactive AZITHROMYCIN 250 MG ORAL TABLET 2 po qd x 1 day, then 1 po qd x 4 days 11/26 AZITHROMYCIN 250 MG ORAL TABLET 267429 AZITHROMYCIN Inactive AZITHROMYCIN 250 MG ORAL TABLET 2 po qd x 1 day, then 1 po qd x 4 days 08/05 AZITHROMYCIN 250 MG ORAL TABLET 634184 AZITHROMYCIN Inactive MEDROL 4 MG ORAL TABLET THERAPY PACK 6 pills on day 1, 5 pills on day 2, 4 pills on day 3, 4 pills on day 4, 2 pills on day 5, 1 pill on day 6 MEDROL 4 MG ORAL TABLET THERAPY PACK 153897 METHYLPREDNISOLONE Inactive CEPHALEXIN 500 MG ORAL CAPSULE 1 tablet by mouth three times daily for ten days CEPHALEXIN 500 MG ORAL CAPSULE 842629 CEPHALEXIN Inactive PREDNISONE 20 MG ORAL TABLET 2 tabs daily for 3 days, 1 tab daily for 3 days, 1/2 tab daily for 2 days PREDNISONE 20 MG ORAL TABLET 762960 PREDNISONE Inactive CEFDINIR 300 MG ORAL CAPSULE 1 cap by mouth twice a day CEFDINIR 300 MG ORAL CAPSULE 225792 CEFDINIR Inactive PREDNISONE 20 MG ORAL TABLET 2 tabs daily for 3 days, 1 tab daily for 3 days, 1/2 tab daily for 2 days PREDNISONE 20 MG ORAL TABLET 091486 PREDNISONE Inactive PREDNISONE 20 MG ORAL TABLET 2 tabs daily for 3 days, 1 tab daily for 3 days, 1/2 tab daily for 2 days PREDNISONE 20 MG ORAL TABLET 260684 PREDNISONE Inactive CEFDINIR 300 MG ORAL CAPSULE by mouth twice a day CEFDINIR 300 MG ORAL CAPSULE 724228 CEFDINIR Inactive PREDNISONE 20 MG ORAL TABLET 2 tabs daily for 3 days, 1 tab daily for 3 days, 1/2 tab daily for 2 days PREDNISONE 20 MG ORAL TABLET 707808 PREDNISONE Inactive CEFDINIR 300 MG ORAL CAPSULE 1 po BID x 10 days CEFDINIR 300 MG ORAL CAPSULE 715823 CEFDINIR Inactive AZITHROMYCIN 250 MG ORAL TABLET 2 po qd x 1 day, then 1 po qd x 4 days 08/30 AZITHROMYCIN 250 MG ORAL TABLET 576289 AZITHROMYCIN Inactive PREDNISONE 20 MG ORAL TABLET 2 tabs daily for 3 days, 1 tab daily for 3 days, 1/2 tab daily for 2 days start tomorrow 07/31/16 PREDNISONE 20 MG ORAL TABLET 679107 PREDNISONE Inactive AZITHROMYCIN 250 MG ORAL TABLET 2 po qd x 1 day, then 1 po qd x 4 days 07/24 AZITHROMYCIN 250 MG ORAL TABLET 972534 AZITHROMYCIN Inactive Immunizations Vaccine Administration Date Value Standard Description Human Papillomavirus vaccine (Gardasil) #2, (HPV #2) Gardasil [ [id number]] human papilloma virus vaccine, quadrivalent Seasonal influenza vaccine, injectable, containing preservative, for > 3 years old (Afluria, FluLaval, Fluzone, Fluvirin, Fluarix, Agriflu(>=18 yo)) Fluzone (>3 yrs.) [[id number]] Influenza, seasonal, injectable Human Papillomavirus Vaccine (Gardasil) #1 Given (HPV #1) Gardasil [CVX62] human papilloma virus vaccine, quadrivalent hepatitis A immunization #2 Havrix-Pedi hepatitis A vaccine, unspecified formulation Boostrix (Tetanus toxoid, reduced diphtheria toxoid and acellular pertussis vaccine, adsorbed), booster Boostrix [[id number]] tetanus toxoid, reduced diphtheria toxoid, and acellular [...] Negative Encounters Code Encounter Date Provider Facility CPT-86098 Level 3 Est. Patient 16:00:45 CDT Daniele Mcfadden DO [facility] CPT-38256 Level 3 Est. Patient 15:57:40 CDT Daniele [facility] CPT-94647 Level 3 Est. Patient 09:35:49 SR. UNIX SYSTEM ADMINISTRATOR Daniele Mcfadden [facility] CPT-28081 Level 3 Est. Patient 09:35:25 SR. UNIX SYSTEM ADMINISTRATOR Daniele Mcfadden [facility] CPT-64208 Level 3 Est. Patient 16:03:55 SR. UNIX SYSTEM ADMINISTRATOR Whitley Quiroz [facility] CPT-16495 Level 3 Est. Patient 17:42:49 SR. UNIX SYSTEM ADMINISTRATOR Whitley Quiroz [facility] CPT-94338 Level 3 Est. Patient 10:49:47 SR. UNIX SYSTEM ADMINISTRATOR Griselda Horvath [facility] CPT-31409 Level 3 Est. Patient 08:43:59 SR. UNIX SYSTEM ADMINISTRATOR Jessika Nunes [facility] CPT-61263 Level 3 Est. Patient 09:05:19 SR. UNIX SYSTEM ADMINISTRATOR Griselda Horvath [facility] CPT-22167 Level 3 Est. Patient 15:45:46 CDT Griselda Horvath [facility] CPT-67733 Level 3 Est. Patient 14:15:52 CDT Daniele Mcfadden [facility] CPT-45970 Level 3 Est. Patient 13:57:19 SR. UNIX SYSTEM ADMINISTRATOR Margarito Kelley MD [facility] CPT-11678 Level 3 Est. Patient 09:16:05 SR. UNIX SYSTEM ADMINISTRATOR Margarito Kelley MD [facility] CPT-75275 Level 3 Est. Patient 15:37:06 SR. UNIX SYSTEM ADMINISTRATOR Daniele Mcfadden [facility] CPT-59537 Level 3 Est. Patient 11:56:34 SR. UNIX SYSTEM ADMINISTRATOR Renée Adames [facility] CPT-50421 Level 3 Est. Patient 12:19:42 CDT Daniele Mcfadden [facility] CPT-96387 Level 3 Est. Patient 11:08:45 CDT Annita Mejia MD, PhD [facility] CPT-73226 Level 3 Est. Patient 12:00:17 CDT Kendell Coronado MD [facility] CPT-18820 Level 3 Est. Patient 12:27:25 CDT Daniele Gaetano Bogdan [facility] CPT-11133 Level 3 Est. Patient 18:45:11 SR. UNIX SYSTEM ADMINISTRATOR Daniele Mcfadden [facility] CPT-07477 Level 3 Est. Patient 10:12:24 SR. UNIX SYSTEM ADMINISTRATOR Daniele Mcfadden [facility] CPT-05571 Level 3 Est. Patient 14:35:11 SR. UNIX SYSTEM ADMINISTRATOR Daniele Mcfadden [facility] CPT-34715 Level 3 Est. Patient 14:11:04 CDT Daniele Gaetano Bogdan [facility] CPT-21671 Level 3 Est. Patient 10:52:13 CDT Alexander LOPEZ [facility] CPT-12463 Level 3 Est. Patient 11:01:08 SR. UNIX SYSTEM ADMINISTRATOR Daniele Mcfadden [facility] CPT-97644 Level 3 Est. Patient 10:55:35 CDT Daniele Salter [facility] CPT-27018 Level 3 Est. Patient 14:03:08 CDT Daniele Gaetano Mcfadden [facility] CPT-09741 Level 3 Est. Patient 11:26:19 CDT Margarito Kelley MD [facility] CPT-75919 Level 2 Est. Patient 15:32:04 SR. UNIX SYSTEM ADMINISTRATOR Daniele Mfcadden [facility] CPT-68011 Level 3 Est. Patient 16:01:26 SR. UNIX SYSTEM ADMINISTRATOR Daniele Mcfadden [facility] CPT-58999 Level 3 Est. Patient 06:37:10 SR. UNIX SYSTEM ADMINISTRATOR Daniele Mcfadden [facility] Procedures Code Procedure Name Date Entry Date Standard Description CPT-89047 Addl Vx - Ix admin via ID IM or jet injects without counseling by physician 14:37:19 CDT CPT-03002 Meningococcal B, recombinant vaccine 14:37:19 CDT 03/05 CPT-71124 First Vx - Ix admin via ID IM or jet injects without counseling by physician 14:37:19 CDT CPT-83793 Menveo Intramuscular Solution Reconstituted 14:37:19 CDT CPT-74648 Meningococcal Conjugate Vacine (Menactra) 11:20:04 CDT CPT-00720 Throat Culture - LAB USE ONLY 12:15:45 SR. UNIX SYSTEM ADMINISTRATOR CPT-17101 Misa Flu A/B - LAB USE ONLY 12:15:45 SR. UNIX SYSTEM ADMINISTRATOR CPT-69199 Rapid Strep (Reflex throat) - LAB USE ONLY 12:15:45 SR. UNIX SYSTEM ADMINISTRATOR CPT-99599 Rapid Strep (Grp A) - LAB USE ONLY 13:06:06 CDT CPT-40751 Abd compl w upright 12:34:39 CDT CPT-53762 Immunization Single Admin 11:38:41 CDT CPT-61871 Fluzone Quadrivalent Intramuscular Suspension 0.5 ML 11: 38:41 CDT CPT-OV Office Visit 14:45:12 SR. UNIX SYSTEM ADMINISTRATOR CPT-70105 Sono abd com inc all organs plus proximal aorta and distal IVC 2012 12:13:02 SR. UNIX SYSTEM ADMINISTRATOR CPT-42005 Abd compl w upright 15:12:58 SR. UNIX SYSTEM ADMINISTRATOR CPT-81282 Venipuncture Draw Fee 14:38:32 SR. UNIX SYSTEM ADMINISTRATOR CPT-91393 Administration single or combination vaccine inc oral 17 :10:04 CDT CPT-75524 Gardasil 17:10:04 CDT CPT-67300 Venipuncture Draw Fee 16:07:54 SR. UNIX SYSTEM ADMINISTRATOR CPT-26248 Administration 2+ single or combination vaccines inc oral 17:22:02 CDT CPT-24500 Administration single or combination vaccine inc oral 17 :22:02 CDT CPT-77890 Influenza split virus > age 3 17:22:02 CDT CPT-13153 Gardasil 17:22:02 CDT CPT-78812 Administration 2+ single or combination vaccines inc oral 14:38:31 CDT CPT-00626 Administration single or combination vaccine inc oral 14 :38:31 CDT CPT-63673 Meningococcal Conjugate Vacine (Menactra) 14:38:31 CDT CPT-27255 Gardasil 14:38:31 CDT
--- OUTSIDE RECORDS SUMMARY | 2018-02-15 06:37 | XMS REPORT | Clinical Summary ---
Author Author Admin, Ludmila Organization [employer] Address Unknown Phone Unavailable Allergies, Adverse Reactions, [...] leg Upper respiratory infection, viral 465.9 Active Margraito Kelley MD Acute upper respiratory infections of unspecified site Sinusitis 473.9 Active Griselda Horvath HEATER WORKER Unspecified sinusitis (chronic) Eustachian tube dysfunction, right 381.81 Active Margarito Kelley MD Dysfunction of Eustachian tube Pharyngitis-Acute 462 Active Daniele Mcfadden DO Acute pharyngitis URI 465.9 Active Griselda Horvath HEATER WORKER Acute upper respiratory infections of unspecified site Allergic rhinitis 477.9 Active Jessika Nunes HEATER WORKER Allergic rhinitis, cause unspecified Acute rhinosinusitis 461.9 Active Jessika Nunes HEATER WORKER Acute sinusitis, unspecified Fever 780.60 Active Griselda Horvath APRN Fever, unspecified Immunization due V15.83 Active Melisa Crooks Personal history of underimmunization status ALLERGIC RHINITIS ICD-477.9 Inactive Errol Pack MD [...] for 2 days start tomorrow 07/31/16 PREDNISONE [id number] No Longer Active Jillina Frazell HEATER WORKER Active AZITHROMYCIN 250 MG TABS 2 po qd x 1 day, then 1 po qd x 4 days AZITHROMYCIN 71350302308 No Longer Active Jillina Frazell HEATER WORKER Active MUCINEX D 60-600 MG [id number] 1 po BID PRN Congestion PSEUDOEPHEDRINE-GUAIFENESIN 09485659832 No Longer Active Jessika Terrell HEATER WORKER Active CEFDINIR 300 MG CAPS 1 po BID x 10 days CEFDINIR 02308826040 No Longer Active Jillina Frazell HEATER WORKER Active PREDNISONE 20 MG TAB 2 tabs daily for 3 days, 1 tab daily for 3 days, 1/2 tab daily for 2 days PREDNISONE 36079946104 No Longer Active Jillina Frazell HEATER WORKER Active FLUTICASONE PROPIONATE 50 MCG/ACT SUSP 1 to 2 sprays each nostril daily 03/20 FLUTICASONE PROPIONATE 33278920587 No Longer Active Jillina Frazell HEATER WORKER Active GUAIFENESIN 600 MG [id number] 1 twice a day as needed for congestion GUAIFENESIN 64018434330 No Longer Active Jillina Frazell HEATER WORKER Active CEFDINIR 300 MG CAPS by mouth twice a day CEFDINIR 30247654691 No Longer Active Jillina Frazell HEATER WORKER Active PREDNISONE 20 MG TAB 1 tablet twice daily for 2 days, then 1 tablet once daily for 2 days PREDNISONE 44153649716 No Longer Active Jillina Frazell HEATER WORKER Active PREDNISONE 20 MG TAB 2 tabs daily for 3 days, 1 tab daily for 3 days, 1/2 tab daily for 2 days PREDNISONE 67816051799 No Longer Active Margarito Kelley MD Active IRVING-D ALLERGY & CONGESTION [id number] 1 po bid FEXOFENADINE-PSEUDOEPHEDRINE [id number] No Longer Active Margarito Kelley MD Active PREDNISONE 20 MG TAB 2 tabs daily for 3 days, 1 tab daily for 3 days, 1/2 tab daily for 2 days PREDNISONE 98269599335 No Longer Active Jillina Frazell HEATER WORKER Active CEFDINIR 300 MG CAPS 1 cap by mouth twice a day CEFDINIR 28394308884 No Longer Active Jillina Frazell HEATER WORKER Active E-Z SPACER ERIBERTO use with proair inhalier every 4 times as need. SPACER/AERO-HOLDING CHAMBERS 50689486287 No Longer Active Jillina Frazell HEATER WORKER Active PROAIR HFA 108 (90 BASE) MCG/ACT AERS 2 puffs every 4 hours as needed 2014 ALBUTEROL SULFATE 38462416363 No Longer Active Jillina Frazell HEATER WORKER Active CEFTIN 500 MG TAB 1 tablet by mouth twice daily for ten days. CEFUROXIME AXETIL 42874885180 No Longer Active Jillina Frazell HEATER WORKER Active PREDNISONE 20 MG TAB 2 tabs daily for 3 days, 1 tab daily for 3 days, 1/2 tab daily for 2 days PREDNISONE 19846907938 No Longer Active Margarito Kelley MD Active CEPHALEXIN 500 MG CAPS 1 tablet by mouth three times daily for ten days 06/25 CEPHALEXIN 67151090974 No Longer Active Renée Adames APRN Active MEDROL (MARY) 4 MG TABS 6 pills on day 1, 5 pills on day 2, 4 pills on day 3, 4 pills on day 4, 2 pills on day 5, 1 pill on day 6 METHYLPREDNISOLONE 87366775684 No Longer Active Annita Mejia MD PhD Active ZITHROMAX Z-MARY 250 MG TABS 2 today and then 1 daily for 4 days AZITHROMYCIN 79302345963 No Longer Active Annita Mejia MD PhD Active GUAIFENESIN-CODEINE 100-10 MG/5ML SYRP 5ml every 4 to 6 hours as needed for cough GUAIFENESIN-CODEINE 77899030434 No Longer Active Annita Mejia MD PhD Active FLONASE 50 MCG/ACT SUSP 1 spray each nostril am and hs FLUTICASONE PROPIONATE 48180441833 No Longer Active Kendell Coronado MD Active MELOXICAM 15 MG TABS 1 po q day for pain with food MELOXICAM 50948319497 No Longer Active Kendell Coronado MD Active HYDROCODONE-ACETAMINOPHEN 5-325 MG TABS 1-2 q 4-6 hrs prn pain 20 tabs 07/04 HYDROCODONE-ACETAMINOPHEN 30125318741 No Longer Active Daniele Mcfadden DO Active PREDNISONE 20 MG TAB 1 tablet twice daily for 2 days, then 1 tablet once daily for 2 days PREDNISONE 28332990804 No Longer Active Daniele Mcfadden DO Active PREDNISONE 20 MG TAB 1 po bid 2 days, then daily for 2 days 12/27 PREDNISONE 67412135798 No Longer Active Alexander LOPEZ Active AZITHROMYCIN 250 MG TABS 2 po qd x 1 day, then 1 po qd x 4 days AZITHROMYCIN 28030655996 No Longer Active Daniele Mcfadden DO Active MUCINEX MAXIMUM STRENGTH [id number] 1 po qd GUAIFENESIN XR12H- TAB 87717556061 No Longer Active Daniele Mcfadden DO Active AZITHROMYCIN 250 MG TABS 2 po qd x 1 day, then 1 po qd x 4 days AZITHROMYCIN 06686864198 No Longer Active Margarito Kelley MD Active MUCINEX MAXIMUM STRENGTH [id number] 1 po qd MUCINEX MAXIMUM STRENGTH [id number] GUAIFENESIN [id number] Inactive PREDNISONE 20 MG TAB 1 po bid 2 days, then daily for 2 days 12/27 PREDNISONE 20 MG TAB 232275 PREDNISONE Inactive PREDNISONE 20 MG TAB 1 tablet twice daily for 2 days, then 1 tablet once daily for 2 days PREDNISONE 20 MG TAB 972260 PREDNISONE Inactive HYDROCODONE-ACETAMINOPHEN 5-325 MG TABS 1-2 q 4-6 hrs prn pain 20 tabs 07/04 HYDROCODONE-ACETAMINOPHEN 5-325 MG TABS 617869 HYDROCODONE- ACETAMINOPHEN Inactive MELOXICAM 15 MG TABS 1 po q day for pain with food MELOXICAM 15 MG TABS 195784 MELOXICAM Inactive FLONASE 50 MCG/ACT SUSP 1 spray each nostril am and hs FLONASE 50 MCG/ACT SUSP 3244998 FLUTICASONE PROPIONATE Inactive GUAIFENESIN-CODEINE 100-10 MG/5ML SYRP 5ml every 4 to 6 hours as needed for cough GUAIFENESIN-CODEINE 100-10 MG/5ML SYRP 658177 GUAIFENESIN-CODEINE Inactive ZITHROMAX Z-MARY 250 MG TABS 2 today and then 1 daily for 4 days ZITHROMAX Z-MARY 250 MG TABS 4000917 AZITHROMYCIN Inactive CEFTIN 500 MG TAB 1 tablet by mouth twice daily for ten days. CEFTIN 500 MG TAB 251840 CEFUROXIME AXETIL Inactive PROAIR HFA 108 (90 BASE) MCG/ACT AERS 2 puffs every 4 hours as needed 2014 PROAIR HFA 108 (90 BASE) MCG/ACT AERS ALBUTEROL SULFATE Inactive E-Z SPACER ERIBERTO use with proair inhalier every 4 times as need. E-Z SPACER ERIBERTO SPACER/AERO-HOLDING CHAMBERS Inactive IRVING-D ALLERGY & CONGESTION [id number] 1 po bid IRVING-D ALLERGY & CONGESTION SU24O-ZBT FEXOFENADINE-PSEUDOEPHEDRINE XR12H- TAB Inactive PREDNISONE 20 MG TAB 1 tablet twice daily for 2 days, then 1 tablet once daily for 2 days PREDNISONE 20 MG TAB 965750 PREDNISONE Inactive GUAIFENESIN 600 MG [id number] 1 twice a day as needed for congestion GUAIFENESIN 600 MG QO68N-XVA GUAIFENESIN Inactive FLUTICASONE PROPIONATE 50 MCG/ACT SUSP 1 to 2 sprays each nostril daily 03/20 FLUTICASONE PROPIONATE 50 MCG/ACT SUSP 1121262 FLUTICASONE PROPIONATE Inactive MUCINEX D 60-600 MG [id number] 1 po BID PRN Congestion MUCINEX D 60-600 MG FP54O-TME PSEUDOEPHEDRINE-GUAIFENESIN Inactive AZITHROMYCIN 250 MG TABS 2 po qd x 1 day, then 1 po qd x 4 days AZITHROMYCIN 250 MG TABS 2146812 AZITHROMYCIN Inactive AZITHROMYCIN 250 MG TABS 2 po qd x 1 day, then 1 po qd x 4 days AZITHROMYCIN 250 MG TABS 3100346 AZITHROMYCIN Inactive MEDROL (MARY) 4 MG TABS 6 pills on day 1, 5 pills on day 2, 4 pills on day 3, 4 pills on day 4, 2 pills on day 5, 1 pill on day 6 MEDROL (MARY) 4 MG TABS 717148 METHYLPREDNISOLONE Inactive CEPHALEXIN 500 MG CAPS 1 tablet by mouth three times daily for ten days 06/25 CEPHALEXIN 500 MG CAPS 102471 CEPHALEXIN Inactive PREDNISONE 20 MG TAB 2 tabs daily for 3 days, 1 tab daily for 3 days, 1/2 tab daily for 2 days PREDNISONE 20 MG TAB 257908 PREDNISONE Inactive CEFDINIR 300 MG CAPS 1 cap by mouth twice a day CEFDINIR 300 MG CAPS 146367 CEFDINIR Inactive PREDNISONE 20 MG TAB 2 tabs daily for 3 days, 1 tab daily for 3 days, 1/2 tab daily for 2 days PREDNISONE 20 MG TAB 755591 PREDNISONE Inactive PREDNISONE 20 MG TAB 2 tabs daily for 3 days, 1 tab daily for 3 days, 1/2 tab daily for 2 days PREDNISONE 20 MG TAB 415256 PREDNISONE Inactive CEFDINIR 300 MG CAPS by mouth twice a day CEFDINIR 300 MG CAPS 346185 CEFDINIR Inactive PREDNISONE 20 MG TAB 2 tabs daily for 3 days, 1 tab daily for 3 days, 1/2 tab daily for 2 days PREDNISONE 20 MG TAB 598262 PREDNISONE Inactive CEFDINIR 300 MG CAPS 1 po BID x 10 days CEFDINIR 300 MG CAPS 20021026 CEFDINIR Inactive AZITHROMYCIN 250 MG TABS 2 po qd x 1 day, then 1 po qd x 4 days AZITHROMYCIN 250 MG TABS 1630695 AZITHROMYCIN Inactive PREDNISONE 20 MG TAB 2 tabs daily for 3 days, 1 tab daily for 3 days, 1/2 tab daily for 2 days start tomorrow 07/31/16 PREDNISONE 20 MG TAB 091679 PREDNISONE Inactive Immunizations Vaccine Administration Date Value Standard Description Human Papillomavirus vaccine (Gardasil) #2, (HPV #2) Gardasil [ CVX62] human papilloma virus vaccine, quadrivalent Seasonal influenza vaccine, injectable, containing preservative, for > 3 years old (Afluria, FluLaval, Fluzone, Fluvirin, Fluarix, Agriflu(>=18 yo)) Fluzone (>3 yrs.) [SMQ044] Influenza, seasonal, injectable Human Papillomavirus Vaccine (Gardasil) #1 Given (HPV #1) Gardasil [CVX62] human papilloma virus vaccine, quadrivalent hepatitis A immunization #2 Havrix-Pedi hepatitis A vaccine, unspecified formulation Boostrix (Tetanus toxoid, reduced diphtheria toxoid and acellular pertussis vaccine, adsorbed), booster Boostrix [ARV377] tetanus toxoid, reduced diphtheria toxoid, and acellular [...] Value Unit Range Description blood pressure, diastolic 70 mm[Hg] BP herndon [...] temperature weight E&M 210.5 [lb_av] Weight Measured blood pressure, diastolic 65 mm[Hg] BP herndon blood pressure, systolic 110 mm[Hg] BP sys pulse rate E&M 86 /min Heart rate temperature E&M 97.6 [degF] Body temperature weight E&M 210 [lb_av] Weight Measured blood pressure, diastolic 77 mm[Hg] BP herndon blood pressure, systolic 125 mm[Hg] BP sys height E&M 70 [in_us] Bdy height pulse rate E&M 93 /min Heart rate temperature E&M 98.9 [degF] Body temperature weight E&M 210.31 [lb_av] Weight Measured blood pressure, diastolic 64 mm[Hg] BP herndon blood pressure, systolic 114 mm[Hg] BP sys pulse rate E&M 74 /min Heart rate temperature E&M 98.1 [degF] Body temperature weight E&M 211 [lb_av] Weight Measured Diagnostic Results Date [...] Negative;Positive Encounters Code Encounter Date Provider Facility CPT-68490 Level 3 Est. Patient 10:49:47 FILTRATION SUPERVISOR Griselda Horvath [facility] CPT-26618 Level 3 Est. Patient 08:43:59 FILTRATION SUPERVISOR Jessika Nunes [facility] CPT-93194 Level 3 Est. Patient 09:05:19 FILTRATION SUPERVISOR Griselda Horvath [facility] CPT-06042 Level 3 Est. Patient 15:45:46 CDT Griselda Horvath [facility] CPT-49539 Level 3 Est. Patient 14:15:52 CDT Daniele Mcfadden [facility] CPT-32920 Level 3 Est. Patient 13:57:19 FILTRATION SUPERVISOR Margarito Kelley MD [facility] CPT-35744 Level 3 Est. Patient 09:16:05 FILTRATION SUPERVISOR Margarito Kelley MD [facility] CPT-39471 Level 3 Est. Patient 15:37:06 FILTRATION SUPERVISOR Daniele Mcfadden [facility] CPT-70373 Level 3 Est. Patient 11:56:34 FILTRATION SUPERVISOR Renée Adames [facility] CPT-76960 Level 3 Est. Patient 12:19:42 CDT Daniele Mcfadden [facility] CPT-47201 Level 3 Est. Patient 11:08:45 CDT Annita Mejia MD PhD [facility] CPT-48196 Level 3 Est. Patient 12:00:17 CDT Kendell Coronado MD [facility] CPT-11901 Level 3 Est. Patient 12:27:25 CDT Daniele Mcfadden [facility] CPT-61017 Level 3 Est. Patient 18:45:11 FILTRATION SUPERVISOR Daniele Mcfadden [facility] CPT-44871 Level 3 Est. Patient 10:12:24 FILTRATION SUPERVISOR Daniele Mcfadden [facility] CPT-61646 Level 3 Est. Patient 14:35:11 FILTRATION SUPERVISOR Daniele Mcfadden [facility] CPT-76403 Level 3 Est. Patient 14:11:04 CDT Daniele Mcfadden [facility] CPT-34394 Level 3 Est. Patient 10:52:13 CDT Alexander LOPEZ [facility] CPT-64353 Level 3 Est. Patient 11:01:08 FILTRATION SUPERVISOR Daniele Mcfadden [facility] CPT-26628 Level 3 Est. Patient 10:55:35 CDT Daniele Mcfadden [facility] CPT-41640 Level 3 Est. Patient 14:03:08 CDT Daniele Mcfadden [facility] CPT-81280 Level 3 Est. Patient 11:26:19 CDT Margarito Kelley MD [facility] CPT-12043 Level 2 Est. Patient 15:32:04 FILTRATION SUPERVISOR Daniele Mcfadden [facility] CPT-24292 Level 3 Est. Patient 16:01:26 FILTRATION SUPERVISOR Daniele Mcfadden [facility] CPT-10235 Level 3 Est. Patient 06:37:10 FILTRATION SUPERVISOR Daniele Salter Bogdan [facility] Procedures Code Procedure Name Date Entry Date Standard Description CPT-36482 Meningococcal Conjugate Vacine (Menactra) 11:20:04 CDT CPT-51465 Throat Culture - LAB USE ONLY 12:15:45 FILTRATION SUPERVISOR CPT-37752 Shani Flu A/B - LAB USE ONLY 12:15:45 FILTRATION SUPERVISOR CPT-10066 Rapid Strep (Reflex throat) - LAB USE ONLY 12:15:45 FILTRATION SUPERVISOR CPT-64863 Rapid Strep (Grp A) - LAB USE ONLY 13:06:06 CDT CPT-86184 Abd compl w upright 12:34:39 CDT CPT-96684 Immunization Single Admin 11:38:41 CDT CPT-90392 Fluzone Quadrivalent Intramuscular Suspension 0.5 ML 11: 38:41 CDT CPT-OV Office Visit 14:45:12 FILTRATION SUPERVISOR CPT-86390 [employer] all organs plus proximal aorta and distal IVC 2012 12:13:02 FILTRATION SUPERVISOR CPT-69211 Abd compl w upright 15:12:58 FILTRATION SUPERVISOR CPT-44880 Venipuncture Draw Fee 14:38:32 FILTRATION SUPERVISOR CPT-78255 Administration single or combination vaccine inc oral 17 :10:04 CDT CPT-38186 Gardasil 17:10:04 CDT CPT-71767 Venipuncture Draw Fee 16:07:54 FILTRATION SUPERVISOR CPT-52592 Administration 2+ single or combination vaccines inc oral 17:22:02 CDT CPT-41058 Administration single or combination vaccine inc oral 17 :22:02 CDT CPT-78580 Influenza split virus > age 3 17:22:02 CDT CPT-85755 Gardasil 17:22:02 CDT CPT-71800 Administration 2+ single or combination vaccines inc oral 14:38:31 CDT CPT-98083 Administration single or combination vaccine inc oral 14 :38:31 CDT CPT-47684 Meningococcal Conjugate Vacine (Menactra) 14:38:31 CDT CPT-51592 Gardasil 14:38:31 CDT
--- OUTSIDE RECORDS SUMMARY | 2018-02-15 06:37 | XMS REPORT | Clinical Summary ---
Author Author Admin, OLEG Organization [facility] Address Unknown Phone Unavailable Allergies, Adverse Reactions, [...] and fatigue Vaccination against influenza V04.81 Resolved Margartio Kelley MD Need for prophylactic vaccination and [...] unspecified site Sinusitis 473.9 Active Griselda Horvath CONSTRUCTION CONTROLLER Unspecified sinusitis (chronic) Eustachian tube dysfunction, right [...] 1/2 tab daily for 2 days PREDNISONE 61082596982 Active Margarito Kelley MD Active IRVING-D ALLERGY & CONGESTION [id number]-TJK 1 po bid FEXOFENADINE-PSEUDOEPHEDRINE TJ90I-BNA [id number] No Longer Active Margarito Kelley MD Active PREDNISONE 20 MG TAB 2 tabs daily for 3 days, 1 tab daily for 3 days, 1/2 tab daily for 2 days PREDNISONE 56337781712 No Longer Active Jillina Frazell CONSTRUCTION CONTROLLER Active CEFDINIR 300 MG CAPS 1 cap by mouth twice a day CEFDINIR 48737970646 No Longer Active Jillina Frazell CONSTRUCTION CONTROLLER Active E-Z SPACER ERIBERTO use with proair inhalier every 4 times as need. SPACER/AERO-HOLDING CHAMBERS 34566377686 No Longer Active Jillina Frazell CONSTRUCTION CONTROLLER Active PROAIR HFA 108 (90 BASE) MCG/ACT AERS 2 puffs every 4 hours as needed 2014 ALBUTEROL SULFATE 12877432445 No Longer Active Jillina Frazell CONSTRUCTION CONTROLLER Active CEFTIN 500 MG TAB 1 tablet by mouth twice daily for ten days. CEFUROXIME AXETIL 24286298429 No Longer Active Jillina Frazell CONSTRUCTION CONTROLLER Active PREDNISONE 20 MG TAB 2 tabs daily for 3 days, 1 tab daily for 3 days, 1/2 tab daily for 2 days PREDNISONE 69861167281 No Longer Active Margarito Kelley MD Active CEPHALEXIN 500 MG CAPS 1 tablet by mouth three times daily for ten days 06/25 CEPHALEXIN 99275158599 No Longer Active Renée Adames APRN Active MEDROL (MARY) 4 MG TABS 6 pills on day 1, 5 pills on day 2, 4 pills on day 3, 4 pills on day 4, 2 pills on day 5, 1 pill on day 6 METHYLPREDNISOLONE 43132595040 No Longer Active Annita Mejia MD PhD Active ZITHROMAX Z-MARY 250 MG TABS 2 today and then 1 daily for 4 days AZITHROMYCIN 81229613669 No Longer Active Annita Mejia MD PhD Active GUAIFENESIN-CODEINE 100-10 MG/5ML SYRP 5ml every 4 to 6 hours as needed for cough GUAIFENESIN-CODEINE 77151222702 No Longer Active Annita Mejia MD PhD Active FLONASE 50 MCG/ACT SUSP 1 spray each nostril am and hs FLUTICASONE PROPIONATE 12267754995 No Longer Active Kendell Coronado MD Active MELOXICAM 15 MG TABS 1 po q day for pain with food MELOXICAM 83179001307 No Longer Active Kendell Coronado MD Active HYDROCODONE-ACETAMINOPHEN 5-325 MG TABS 1-2 q 4-6 hrs prn pain 20 tabs 07/04 HYDROCODONE-ACETAMINOPHEN 82280384745 No Longer Active Daniele Mcfadden DO Active PREDNISONE 20 MG TAB 1 tablet twice daily for 2 days, then 1 tablet once daily for 2 days PREDNISONE 68518879330 No Longer Active Daniele Mcfadden DO Active PREDNISONE 20 MG TAB 1 po bid 2 days, then daily for 2 days 12/27 PREDNISONE 47251735845 No Longer Active Alexander LOPEZ Active AZITHROMYCIN 250 MG TABS 2 po qd x 1 day, then 1 po qd x 4 days AZITHROMYCIN 22027998585 No Longer Active Daniele Mcfadden DO Active MUCINEX MAXIMUM STRENGTH [id number] 1 po qd GUAIFENESIN XR12H- TAB 97125990323 No Longer Active Daniele Mcfadden DO Active AZITHROMYCIN 250 MG TABS 2 po qd x 1 day, then 1 po qd x 4 days AZITHROMYCIN 85875774313 No Longer Active Margarito Kelley MD Active MUCINEX MAXIMUM STRENGTH TJ40G-SAZ 1 po qd MUCINEX MAXIMUM STRENGTH SH72A-LMI GUAIFENESIN YE94U-OBT Inactive PREDNISONE 20 MG TAB 1 po bid 2 days, then daily for 2 days 12/27 PREDNISONE 20 MG TAB 568285 PREDNISONE Inactive PREDNISONE 20 MG TAB 1 tablet twice daily for 2 days, then 1 tablet once daily for 2 days PREDNISONE 20 MG TAB 821993 PREDNISONE Inactive HYDROCODONE-ACETAMINOPHEN 5-325 MG TABS 1-2 q 4-6 hrs prn pain 20 tabs 07/04 HYDROCODONE-ACETAMINOPHEN 5-325 MG TABS 075242 HYDROCODONE- ACETAMINOPHEN Inactive MELOXICAM 15 MG TABS 1 po q day for pain with food MELOXICAM 15 MG TABS 529605 MELOXICAM Inactive FLONASE 50 MCG/ACT SUSP 1 spray each nostril am and hs FLONASE 50 MCG/ACT SUSP FLUTICASONE PROPIONATE Inactive GUAIFENESIN-CODEINE 100-10 MG/5ML SYRP 5ml every 4 to 6 hours as needed for cough GUAIFENESIN-CODEINE 100-10 MG/5ML SYRP 958114 GUAIFENESIN-CODEINE Inactive ZITHROMAX Z-MARY 250 MG TABS 2 today and then 1 daily for 4 days ZITHROMAX Z-MARY 250 MG TABS 5186124 AZITHROMYCIN Inactive CEFTIN 500 MG TAB 1 tablet by mouth twice daily for ten days. CEFTIN 500 MG TAB 332166 CEFUROXIME AXETIL Inactive PROAIR HFA 108 (90 BASE) MCG/ACT AERS 2 puffs every 4 hours as needed 2014 PROAIR HFA 108 (90 BASE) MCG/ACT AERS ALBUTEROL SULFATE Inactive E-Z SPACER ERIBERTO use with proair inhalier every 4 times as need. E-Z SPACER ERIBERTO SPACER/AERO-HOLDING CHAMBERS Inactive IRVING-D ALLERGY & CONGESTION [id number] 1 po bid IRVING-D ALLERGY & CONGESTION [id number] FEXOFENADINE-PSEUDOEPHEDRINE XR12H- TAB Inactive AZITHROMYCIN 250 MG TABS 2 po qd x 1 day, then 1 po qd x 4 days AZITHROMYCIN 250 MG TABS 8024245 AZITHROMYCIN Inactive AZITHROMYCIN 250 MG TABS 2 po qd x 1 day, then 1 po qd x 4 days AZITHROMYCIN 250 MG TABS 6054659 AZITHROMYCIN Inactive MEDROL (MARY) 4 MG TABS 6 pills on day 1, 5 pills on day 2, 4 pills on day 3, 4 pills on day 4, 2 pills on day 5, 1 pill on day 6 MEDROL (MARY) 4 MG TABS METHYLPREDNISOLONE Inactive CEPHALEXIN 500 MG CAPS 1 tablet by mouth three times daily for ten days 06/25 CEPHALEXIN 500 MG CAPS 996917 CEPHALEXIN Inactive PREDNISONE 20 MG TAB 2 tabs daily for 3 days, 1 tab daily for 3 days, 1/2 tab daily for 2 days PREDNISONE 20 MG TAB 196364 PREDNISONE Inactive CEFDINIR 300 MG CAPS 1 cap by mouth twice a day CEFDINIR 300 MG CAPS 649439 CEFDINIR Inactive PREDNISONE 20 MG TAB 2 tabs daily for 3 days, 1 tab daily for 3 days, 1/2 tab daily for 2 days PREDNISONE 20 MG TAB 110238 PREDNISONE Inactive Immunizations Vaccine Administration Date Value Standard Description Human Papillomavirus vaccine (Gardasil) #2, (HPV #2) Gardasil [ CVX62] human papilloma virus vaccine, quadrivalent Seasonal influenza vaccine, injectable, containing preservative, for > 3 years old (Afluria, FluLaval, Fluzone, Fluvirin, Fluarix, Agriflu(>=18 yo)) Fluzone (>3 yrs.) [[id number]] Influenza, seasonal, injectable Human Papillomavirus Vaccine (Gardasil) #1 Given (HPV #1) Gardasil [CVX62] human papilloma virus vaccine, quadrivalent hepatitis A immunization #2 Havrix-Pedi hepatitis A vaccine, unspecified formulation Boostrix (Tetanus toxoid, reduced diphtheria toxoid and acellular pertussis vaccine, adsorbed), booster Boostrix [[id number]] tetanus toxoid, reduced diphtheria toxoid, and acellular [...] Measured Encounters Code Encounter Date Provider Facility CPT-83432 Level 3 Est. Patient 13:57:19 LENS MARKER Margarito Kelley MD [facility] CPT-16530 Level 3 Est. Patient 09:16:05 LENS MARKER Margarito Kelley MD [facility] CPT-48267 Level 3 Est. Patient 15:37:06 LENS MARKER Daniele Mcfadden [facility] CPT-74698 Level 3 Est. Patient 11:56:34 LENS MARKER Renée Adames APRN [facility] CPT-59023 Level 3 Est. Patient 12:19:42 CDT Daniele Mcfadden [facility] CPT-70816 Level 3 Est. Patient 11:08:45 CDT Annita Mejia MD PhD [facility] CPT-39246 Level 3 Est. Patient 12:00:17 CDT Kendell Coronado MD [facility] CPT-83808 Level 3 Est. Patient 12:27:25 CDT Daniele Mcfadden [facility] CPT-05314 Level 3 Est. Patient 18:45:11 LENS MARKER Daniele Mcfadden [facility] CPT-59713 Level 3 Est. Patient 10:12:24 LENS MARKER Daniele Mcfadden [facility] CPT-11817 Level 3 Est. Patient 14:35:11 LENS MARKER Daniele Mcfadden [facility] CPT-82958 Level 3 Est. Patient 14:11:04 CDT Daniele Mcfadden [facility] CPT-89058 Level 3 Est. Patient 10:52:13 CDT Alexander LOPEZ [facility] CPT-19581 Level 3 Est. Patient 11:01:08 LENS MARKER Daniele Mcfadden [facility] CPT-02025 Level 3 Est. Patient 10:55:35 CDT Daniele Mcfadden [facility] CPT-96632 Level 3 Est. Patient 14:03:08 CDT Daniele Mcfadden [facility] CPT-96336 Level 3 Est. Patient 11:26:19 CDT Margarito Kelley MD [facility] CPT-15065 Level 2 Est. Patient 15:32:04 LENS MARKER Daniele Mcfadden [facility] CPT-72095 Level 3 Est. Patient 16:01:26 LENS MARKER Daniele Mcfadden [facility] CPT-27488 Level 3 Est. Patient 06:37:10 LENS MARKER Daniele Mcfadden [facility] Procedures Code Procedure Name Date Entry Date Standard Description CPT-80942 Abd compl w upright 12:34:39 CDT CPT-25818 Immunization Single Admin 11:38:41 CDT CPT-16571 Fluzone Quadrivalent Intramuscular Suspension 0.5 ML 11: 38:41 CDT CPT-OV Office Visit 14:45:12 LENS MARKER CPT-50688 [employer] all organs plus proximal aorta and distal IVC 2012 12:13:02 LENS MARKER CPT-09094 Abd compl w upright 15:12:58 LENS MARKER CPT-16462 Venipuncture Draw Fee 14:38:32 LENS MARKER CPT-45951 Administration single or combination vaccine inc oral 17 :10:04 CDT CPT-22775 Gardasil 17:10:04 CDT CPT-22038 Venipuncture Draw Fee 16:07:54 LENS MARKER CPT-23858 Administration 2+ single or combination vaccines inc oral 17:22:02 CDT CPT-62977 Administration single or combination vaccine inc oral 17 :22:02 CDT CPT-13131 Influenza split virus > age 3 17:22:02 CDT CPT-16633 Gardasil 17:22:02 CDT CPT-98962 Administration 2+ single or combination vaccines inc oral 14:38:31 CDT CPT-96730 Administration single or combination vaccine inc oral 14 :38:31 CDT CPT-13404 Meningococcal Conjugate Vacine (Menactra) 14:38:31 CDT CPT-67504 Gardasil 14:38:31 CDT
--- OUTSIDE RECORDS SUMMARY | 2018-02-15 06:38 | XMS REPORT | Clinical Summary ---
Author Author Admin, Ludmila Organization [facility] Address Unknown Phone Unavailable Allergies, Adverse Reactions, [...] and fatigue Vaccination against influenza V04.81 Resolved Mragarito Kelley MD Need for prophylactic vaccination and [...] unspecified site Sinusitis 473.9 Active Griselda Horvath MOLDING PLASTERER Unspecified sinusitis (chronic) Eustachian tube dysfunction, right 381.81 Active Margarito Kelley MD Dysfunction of Eustachian tube Pharyngitis-Acute 462 Active Daniele Mcfadden DO Acute pharyngitis URI 465.9 Active Griselda Horvath MOLDING PLASTERER Acute upper respiratory infections of unspecified site Allergic rhinitis 477.9 Active Jessika Nunes MOLDING PLASTERER Allergic rhinitis, cause unspecified Acute rhinosinusitis 461.9 Active Jessika Nunes MOLDING PLASTERER Acute sinusitis, unspecified Fever 780.60 Active Griselda Horvath MOLDING PLASTERER Fever, unspecified ALLERGIC RHINITIS ICD-477.9 Inactive Errol [...] for 2 days start tomorrow 07/31/16 PREDNISONE 68293152650 Active Jillina Frazell MOLDING PLASTERER Active AZITHROMYCIN 250 MG TABS 2 po qd x 1 day, then 1 po qd x 4 days AZITHROMYCIN 16997441144 Active Jillina Frazell MOLDING PLASTERER Active MUCINEX D 60-600 MG XV10A-LPI 1 po BID PRN Congestion PSEUDOEPHEDRINE-GUAIFENESIN 88390603188 No Longer Active Jessika Nunes MOLDING PLASTERER Active CEFDINIR 300 MG CAPS 1 po BID x 10 days CEFDINIR 46149771975 No Longer Active Jillina Frazell MOLDING PLASTERER Active PREDNISONE 20 MG TAB 2 tabs daily for 3 days, 1 tab daily for 3 days, 1/2 tab daily for 2 days PREDNISONE 58142182990 No Longer Active Jillina Frazell MOLDING PLASTERER Active FLUTICASONE PROPIONATE 50 MCG/ACT SUSP 1 to 2 sprays each nostril daily 03/20 FLUTICASONE PROPIONATE 35720856548 No Longer Active Jillina Frazell MOLDING PLASTERER Active GUAIFENESIN 600 MG [id number]-NLM 1 twice a day as needed for congestion GUAIFENESIN 10559873218 No Longer Active Jillina Frazell MOLDING PLASTERER Active CEFDINIR 300 MG CAPS by mouth twice a day CEFDINIR 52324115869 No Longer Active Jillina Frazell MOLDING PLASTERER Active PREDNISONE 20 MG TAB 1 tablet twice daily for 2 days, then 1 tablet once daily for 2 days PREDNISONE 02253962010 No Longer Active Jillina Frazell MOLDING PLASTERER Active PREDNISONE 20 MG TAB 2 tabs daily for 3 days, 1 tab daily for 3 days, 1/2 tab daily for 2 days PREDNISONE 94027023444 No Longer Active Margarito Kelley MD Active IRVING-D ALLERGY & CONGESTION [id number]-EYJ 1 po bid FEXOFENADINE-PSEUDOEPHEDRINE PB70I-LCZ 96946920938 No Longer Active Margarito Kelley MD Active PREDNISONE 20 MG TAB 2 tabs daily for 3 days, 1 tab daily for 3 days, 1/2 tab daily for 2 days PREDNISONE 54748671456 No Longer Active Jillina Frazell MOLDING PLASTERER Active CEFDINIR 300 MG CAPS 1 cap by mouth twice a day CEFDINIR 18863833181 No Longer Active Jillina Frazell MOLDING PLASTERER Active E-Z SPACER ERIBERTO use with proair inhalier every 4 times as need. SPACER/AERO-HOLDING CHAMBERS 39094510270 No Longer Active Jillina Frazell MOLDING PLASTERER Active PROAIR HFA 108 (90 BASE) MCG/ACT AERS 2 puffs every 4 hours as needed 2014 ALBUTEROL SULFATE 52264857242 No Longer Active Jillina Frazell MOLDING PLASTERER Active CEFTIN 500 MG TAB 1 tablet by mouth twice daily for ten days. CEFUROXIME AXETIL 38834009154 No Longer Active Ezekielllina Frazell MOLDING PLASTERER Active PREDNISONE 20 MG TAB 2 tabs daily for 3 days, 1 tab daily for 3 days, 1/2 tab daily for 2 days PREDNISONE 77815594580 No Longer Active Margarito Kelley MD Active CEPHALEXIN 500 MG CAPS 1 tablet by mouth three times daily for ten days 06/25 CEPHALEXIN 71202713990 No Longer Active Renée Adames APRN Active MEDROL (MARY) 4 MG TABS 6 pills on day 1, 5 pills on day 2, 4 pills on day 3, 4 pills on day 4, 2 pills on day 5, 1 pill on day 6 METHYLPREDNISOLONE 49128044389 No Longer Active Annita Mejia MD PhD Active ZITHROMAX Z-MARY 250 MG TABS 2 today and then 1 daily for 4 days AZITHROMYCIN 08575301371 No Longer Active Annita Mejia MD PhD Active GUAIFENESIN-CODEINE 100-10 MG/5ML SYRP 5ml every 4 to 6 hours as needed for cough GUAIFENESIN-CODEINE 11805497011 No Longer Active Annita Mejia MD PhD Active FLONASE 50 MCG/ACT SUSP 1 spray each nostril am and hs FLUTICASONE PROPIONATE 22513641838 No Longer Active Kendell Coronado MD Active MELOXICAM 15 MG TABS 1 po q day for pain with food MELOXICAM 58466852928 No Longer Active Kendell Coronado MD Active HYDROCODONE-ACETAMINOPHEN 5-325 MG TABS 1-2 q 4-6 hrs prn pain 20 tabs 07/04 HYDROCODONE-ACETAMINOPHEN 54445857131 No Longer Active Daniele Mcfadden DO Active PREDNISONE 20 MG TAB 1 tablet twice daily for 2 days, then 1 tablet once daily for 2 days PREDNISONE 21052918927 No Longer Active Daniele Mcfadden DO Active PREDNISONE 20 MG TAB 1 po bid 2 days, then daily for 2 days 12/27 PREDNISONE 84523199586 No Longer Active Alexander LOPEZ Active AZITHROMYCIN 250 MG TABS 2 po qd x 1 day, then 1 po qd x 4 days AZITHROMYCIN 04998649968 No Longer Active Daniele Mcfadden DO Active MUCINEX MAXIMUM STRENGTH IP88L-VYH 1 po qd GUAIFENESIN XR12H- TAB 16610721483 No Longer Active Daniele Mcfadden DO Active AZITHROMYCIN 250 MG TABS 2 po qd x 1 day, then 1 po qd x 4 days AZITHROMYCIN 53681575026 No Longer Active Margarito Kelley MD Active MUCINEX MAXIMUM STRENGTH ZX67C-KZT 1 po qd MUCINEX MAXIMUM STRENGTH BN11W-AZK GUAIFENESIN SP04J-YNH Inactive PREDNISONE 20 MG TAB 1 po bid 2 days, then daily for 2 days 12/27 PREDNISONE 20 MG TAB 801911 PREDNISONE Inactive PREDNISONE 20 MG TAB 1 tablet twice daily for 2 days, then 1 tablet once daily for 2 days PREDNISONE 20 MG TAB 340354 PREDNISONE Inactive HYDROCODONE-ACETAMINOPHEN 5-325 MG TABS 1-2 q 4-6 hrs prn pain 20 tabs 07/04 HYDROCODONE-ACETAMINOPHEN 5-325 MG TABS 367797 HYDROCODONE- ACETAMINOPHEN Inactive MELOXICAM 15 MG TABS 1 po q day for pain with food MELOXICAM 15 MG TABS 494901 MELOXICAM Inactive FLONASE 50 MCG/ACT SUSP 1 spray each nostril am and hs FLONASE 50 MCG/ACT SUSP FLUTICASONE PROPIONATE Inactive GUAIFENESIN-CODEINE 100-10 MG/5ML SYRP 5ml every 4 to 6 hours as needed for cough GUAIFENESIN-CODEINE 100-10 MG/5ML SYRP 486493 GUAIFENESIN-CODEINE Inactive ZITHROMAX Z-MARY 250 MG TABS 2 today and then 1 daily for 4 days ZITHROMAX Z-MARY 250 MG TABS 1703474 AZITHROMYCIN Inactive CEFTIN 500 MG TAB 1 tablet by mouth twice daily for ten days. CEFTIN 500 MG TAB 048005 CEFUROXIME AXETIL Inactive PROAIR HFA 108 (90 BASE) MCG/ACT AERS 2 puffs every 4 hours as needed 2014 PROAIR HFA 108 (90 BASE) MCG/ACT AERS ALBUTEROL SULFATE Inactive E-Z SPACER ERIBERTO use with proair inhalier every 4 times as need. E-Z SPACER ERIBERTO SPACER/AERO-HOLDING CHAMBERS Inactive IRVING-D ALLERGY & CONGESTION GC19A-EZS 1 po bid IRVING-D ALLERGY & CONGESTION UY34V-EAS FEXOFENADINE-PSEUDOEPHEDRINE XR12H- TAB Inactive PREDNISONE 20 MG TAB 1 tablet twice daily for 2 days, then 1 tablet once daily for 2 days PREDNISONE 20 MG TAB 635709 PREDNISONE Inactive GUAIFENESIN 600 MG SQ45Y-KWY 1 twice a day as needed for congestion GUAIFENESIN 600 MG VT22U-MDR GUAIFENESIN Inactive FLUTICASONE PROPIONATE 50 MCG/ACT SUSP 1 to 2 sprays each nostril daily 03/20 FLUTICASONE PROPIONATE 50 MCG/ACT SUSP 1355657 FLUTICASONE PROPIONATE Inactive MUCINEX D 60-600 MG TZ06U-SEZ 1 po BID PRN Congestion MUCINEX D 60-600 MG QN18S-APW PSEUDOEPHEDRINE-GUAIFENESIN Inactive AZITHROMYCIN 250 MG TABS 2 po qd x 1 day, then 1 po qd x 4 days AZITHROMYCIN 250 MG TABS 9503849 AZITHROMYCIN Inactive AZITHROMYCIN 250 MG TABS 2 po qd x 1 day, then 1 po qd x 4 days AZITHROMYCIN 250 MG TABS 8801316 AZITHROMYCIN Inactive MEDROL (MARY) 4 MG TABS 6 pills on day 1, 5 pills on day 2, 4 pills on day 3, 4 pills on day 4, 2 pills on day 5, 1 pill on day 6 MEDROL (MARY) 4 MG TABS 720886 METHYLPREDNISOLONE Inactive CEPHALEXIN 500 MG CAPS 1 tablet by mouth three times daily for ten days 06/25 CEPHALEXIN 500 MG CAPS 559502 CEPHALEXIN Inactive PREDNISONE 20 MG TAB 2 tabs daily for 3 days, 1 tab daily for 3 days, 1/2 tab daily for 2 days PREDNISONE 20 MG TAB 893395 PREDNISONE Inactive CEFDINIR 300 MG CAPS 1 cap by mouth twice a day CEFDINIR 300 MG CAPS 782296 CEFDINIR Inactive PREDNISONE 20 MG TAB 2 tabs daily for 3 days, 1 tab daily for 3 days, 1/2 tab daily for 2 days PREDNISONE 20 MG TAB 414013 PREDNISONE Inactive PREDNISONE 20 MG TAB 2 tabs daily for 3 days, 1 tab daily for 3 days, 1/2 tab daily for 2 days PREDNISONE 20 MG TAB 588628 PREDNISONE Inactive CEFDINIR 300 MG CAPS by mouth twice a day CEFDINIR 300 MG CAPS 20021026 CEFDINIR Inactive PREDNISONE 20 MG TAB 2 tabs daily for 3 days, 1 tab daily for 3 days, 1/2 tab daily for 2 days PREDNISONE 20 MG TAB 581367 PREDNISONE Inactive CEFDINIR 300 MG CAPS 1 po BID x 10 days CEFDINIR 300 MG CAPS 20021026 CEFDINIR Inactive Immunizations Vaccine Administration Date Value Standard Description Human Papillomavirus vaccine (Gardasil) #2, (HPV #2) Gardasil [ CVX62] human papilloma virus vaccine, quadrivalent Seasonal influenza vaccine, injectable, containing preservative, for > 3 years old (Afluria, FluLaval, Fluzone, Fluvirin, Fluarix, Agriflu(>=18 yo)) Fluzone (>3 yrs.) [[id number]] Influenza, seasonal, injectable Human Papillomavirus Vaccine (Gardasil) #1 Given (HPV #1) Gardasil [CVX62] human papilloma virus vaccine, quadrivalent hepatitis A immunization #2 Havrix-Pedi hepatitis A vaccine, unspecified formulation Boostrix (Tetanus toxoid, reduced diphtheria toxoid and acellular pertussis vaccine, adsorbed), booster Boostrix [[id number]] tetanus toxoid, reduced diphtheria toxoid, and acellular [...] Negative;Positive Encounters Code Encounter Date Provider Facility CPT-49971 Level 3 Est. Patient 10:49:47 HOUSE WORKER Griselda Horvath [facility] CPT-05109 Level 3 Est. Patient 08:43:59 HOUSE WORKER Jessika Nunes [facility] CPT-31138 Level 3 Est. Patient 09:05:19 HOUSE WORKER Griselda Horvath [facility] CPT-86453 Level 3 Est. Patient 15:45:46 CDT Griselda Horvath [facility] CPT-25361 Level 3 Est. Patient 14:15:52 CDT Daniele Mcfadden [facility] CPT-50793 Level 3 Est. Patient 13:57:19 HOUSE WORKER Margarito Kelley MD [facility] CPT-89625 Level 3 Est. Patient 09:16:05 HOUSE WORKER Margarito Kelley MD [facility] CPT-13693 Level 3 Est. Patient 15:37:06 HOUSE WORKER Daniele Mcfadden DO [facility] CPT-20333 Level 3 Est. Patient 11:56:34 HOUSE WORKER Renée Adames [facility] CPT-17119 Level 3 Est. Patient 12:19:42 CDT Daniele Mcfadden [facility] CPT-08912 Level 3 Est. Patient 11:08:45 CDT Annita Mejia MD PhD [facility] CPT-84270 Level 3 Est. Patient 12:00:17 CDT Kendell Coronado MD [facility] CPT-57778 Level 3 Est. Patient 12:27:25 CDT Daniele Mcfadden [facility] CPT-47458 Level 3 Est. Patient 18:45:11 HOUSE WORKER Daniele Mcfadden [facility] CPT-15436 Level 3 Est. Patient 10:12:24 HOUSE WORKER Daniele Mcfadden [facility] CPT-74385 Level 3 Est. Patient 14:35:11 HOUSE WORKER Daniele Mcfadden [facility] CPT-17916 Level 3 Est. Patient 14:11:04 CDT Daniele Mcfadden [facility] CPT-83696 Level 3 Est. Patient 10:52:13 CDT Alexander LOPEZ [facility] CPT-92732 Level 3 Est. Patient 11:01:08 HOUSE WORKER Daniele Mcfadden DO [facility] CPT-07008 Level 3 Est. Patient 10:55:35 CDT Daniele Mcfadden [facility] CPT-88221 Level 3 Est. Patient 14:03:08 CDT Daniele Mcfadden [facility] CPT-84075 Level 3 Est. Patient 11:26:19 CDT Margarito Kelley MD [facility] CPT-08093 Level 2 Est. Patient 15:32:04 HOUSE WORKER Daniele Mcfadden [facility] CPT-29098 Level 3 Est. Patient 16:01:26 HOUSE WORKER Daniele Mcfadden [facility] CPT-66362 Level 3 Est. Patient 06:37:10 HOUSE WORKER Daniele Mcfadden [facility] Procedures Code Procedure Name Date Entry Date Standard Description CPT-73569 Throat Culture - LAB USE ONLY 12:15:45 HOUSE WORKER CPT-36075 Misa Flu A/B - LAB USE ONLY 12:15:45 HOUSE WORKER CPT-26318 Rapid Strep (Reflex throat) - LAB USE ONLY 12:15:45 HOUSE WORKER CPT-12832 Rapid Strep (Grp A) - LAB USE ONLY 13:06:06 CDT CPT-29089 Abd compl w upright 12:34:39 CDT CPT-93390 Immunization Single Admin 11:38:41 CDT CPT-61693 Fluzone Quadrivalent Intramuscular Suspension 0.5 ML 11: 38:41 CDT CPT-OV Office Visit 14:45:12 HOUSE WORKER CPT-21471 [employer] all organs plus proximal aorta and distal IVC 2012 12:13:02 HOUSE WORKER CPT-12523 Abd compl w upright 15:12:58 HOUSE WORKER CPT-01762 Venipuncture Draw Fee 14:38:32 HOUSE WORKER CPT-72278 Administration single or combination vaccine inc oral 17 :10:04 CDT CPT-87831 Gardasil 17:10:04 CDT CPT-54149 Venipuncture Draw Fee 16:07:54 HOUSE WORKER CPT-35341 Administration 2+ single or combination vaccines inc oral 17:22:02 CDT CPT-84219 Administration single or combination vaccine inc oral 17 :22:02 CDT CPT-71159 Influenza split virus > age 3 17:22:02 CDT CPT-01279 Gardasil 17:22:02 CDT CPT-68268 Administration 2+ single or combination vaccines inc oral 14:38:31 CDT CPT-41778 Administration single or combination vaccine inc oral 14 :38:31 CDT CPT-81849 Meningococcal Conjugate Vacine (Menactra) 14:38:31 CDT CPT-59201 Gardasil 14:38:31 CDT
--- OUTSIDE RECORDS SUMMARY | 2018-02-15 06:39 | XMS REPORT | Clinical Summary ---
Author Author Admin, [facility] Organization [facility] Address Unknown Phone Unavailable Allergies, Adverse [...] MD Biliary dyskinesia ICD-575.8 Inactive Katie Gipson MONEY MANAGER U R I ICD-465.9 Inactive Daniele Mcfadden [...] tube dysfunction, right ICD-381.81 Inactive Katie Gipson MONEY MANAGER Pharyngitis-Acute ICD-462 Inactive Katie Gipson MONEY MANAGER URI ICD-465.9 Inactive Katie Gipson MONEY MANAGER Allergic rhinitis ICD-477.9 Inactive Katie Gipson MONEY MANAGER Acute rhinosinusitis ICD-461.9 Inactive Katie Gipson LPN [...] today, then 1 tab tomorrow 08/30 PREDNISONE [id number] No Longer Active Daniele Mcfadden DO Active FLUTICASONE PROPIONATE 50 MCG/ACT NASAL SUSPENSION 1 spray each nostril twice daily until bottle empty FLUTICASONE PROPIONATE 69427497135 Active Daniele Mcfadden DO Active PREDNISONE 10 MG ORAL TABLET 2 TABS BY MOUTH TODAY, THEN 1 TAB BY MOUTH DAYS 2 -5 PREDNISONE [id number] No Longer Active Daniele Mcfadden DO Active PREDNISONE 20 MG ORAL TABLET two tabs by mouth today, then one tab by mouth days two and three PREDNISONE 89993349217 No Longer Active Whitley Hernandez Active AZITHROMYCIN 250 MG ORAL TABLET 2 po qd x 1 day, then 1 po qd x 4 days 07/24 AZITHROMYCIN 17710427583 No Longer Active Daniele Mcfadden DO Active IRVING-D ALLERGY & CONGESTION 60-120 MG ORAL TABLET EXTENDED RELEASE 12 HOUR 1 tablet twice daily as needed for congestion/allergies FEXOFENADINE-PSEUDOEPHEDRINE 71302889745 Active Holly Sharma Active PREDNISONE 20 MG ORAL TABLET 2 tabs daily for 3 days, 1 tab daily for 3 days, 1/2 tab daily for 2 days start tomorrow 07/31/16 PREDNISONE 09060662441 No Longer Active Jillina Frazell ENTRY LEVEL ELECTRICAL ENGINEER Active AZITHROMYCIN 250 MG ORAL TABLET 2 po qd x 1 day, then 1 po qd x 4 days 08/30 AZITHROMYCIN 36009135298 No Longer Active Jillina Jiml ENTRY LEVEL ELECTRICAL ENGINEER Active MUCINEX D 60-600 MG ORAL TABLET EXTENDED RELEASE 12 HOUR 1 po BID PRN Congestion PSEUDOEPHEDRINE-GUAIFENESIN 19574154430 No Longer Active Jessika Nunes APRN Active CEFDINIR 300 MG ORAL CAPSULE 1 po BID x 10 days CEFDINIR 71378242566 No Longer Active Ezekielllina Alexandru ENTRY LEVEL ELECTRICAL ENGINEER Active PREDNISONE 20 MG ORAL TABLET 2 tabs daily for 3 days, 1 tab daily for 3 days, 1/2 tab daily for 2 days PREDNISONE 84461932975 No Longer Active Ezekielllina Jiml ENTRY LEVEL ELECTRICAL ENGINEER Active FLUTICASONE PROPIONATE 50 MCG/ACT NASAL SUSPENSION 1 to 2 sprays each nostril daily FLUTICASONE PROPIONATE 35299144454 No Longer Active Ezekielllina Alexandru ENTRY LEVEL ELECTRICAL ENGINEER Active GUAIFENESIN ER 600 MG ORAL TABLET EXTENDED RELEASE 12 HOUR 1 twice a day as needed for congestion GUAIFENESIN 84655668376 No Longer Active Ezekielllina Alexandru ENTRY LEVEL ELECTRICAL ENGINEER Active CEFDINIR 300 MG ORAL CAPSULE by mouth twice a day CEFDINIR 64849584973 No Longer Active Ezekielllina Alexandru ONTIVEROSN Active PREDNISONE 20 MG ORAL TABLET 1 tablet twice daily for 2 days, then 1 tablet once daily for 2 days PREDNISONE 64872607472 No Longer Active Jillina Jiml ENTRY LEVEL ELECTRICAL ENGINEER Active PREDNISONE 20 MG ORAL TABLET 2 tabs daily for 3 days, 1 tab daily for 3 days, 1/2 tab daily for 2 days PREDNISONE 30588683452 No Longer Active Margarito Kelley MD Active IRVING-D ALLERGY & CONGESTION TABLET EXTENDED RELEASE 12 HOUR 1 po bid 05/26 FEXOFENADINE-PSEUDOEPHEDRINE [id number] 20381490813 No Longer Active Margarito Kelley MD Active PREDNISONE 20 MG ORAL TABLET 2 tabs daily for 3 days, 1 tab daily for 3 days, 1/2 tab daily for 2 days PREDNISONE 48800624875 No Longer Active Ezekielllina Fratracey JOHNSON Active CEFDINIR 300 MG ORAL CAPSULE 1 cap by mouth twice a day CEFDINIR 15703850999 No Longer Active Jillina Frazell ENTRY LEVEL ELECTRICAL ENGINEER Active E-Z SPACER DEVICE use with proair inhalier every 4 times as need. SPACER/AERO-HOLDING CHAMBERS 17352441817 No Longer Active Jillina Framarkl ALEX Active PROAIR HFA 108 (90 Base) MCG/ACT INHALATION AEROSOL SOLUTION 2 puffs every 4 hours as needed ALBUTEROL SULFATE 68548699623 No Longer Active Ezekielllsd Fernandezl ENTRY LEVEL ELECTRICAL ENGINEER Active CEFTIN 500 MG ORAL TABLET 1 tablet by mouth twice daily for ten days. CEFUROXIME AXETIL 99266645350 No Longer Active Griselda Horvath APRN Active PREDNISONE 20 MG ORAL TABLET 2 tabs daily for 3 days, 1 tab daily for 3 days, 1/2 tab daily for 2 days PREDNISONE 61934083722 No Longer Active Margarito Kelley MD Active CEPHALEXIN 500 MG ORAL CAPSULE 1 tablet by mouth three times daily for ten days CEPHALEXIN 40230121109 No Longer Active Renée Adames APRN Active MEDROL 4 MG ORAL TABLET THERAPY PACK 6 pills on day 1, 5 pills on day 2, 4 pills on day 3, 4 pills on day 4, 2 pills on day 5, 1 pill on day 6 METHYLPREDNISOLONE 83531369646 No Longer Active Annita Mejia MD PhD Active ZITHROMAX Z-MARY 250 MG ORAL TABLET 2 today and then 1 daily for 4 days 03/11 AZITHROMYCIN 59453945152 No Longer Active Annita Mejia MD PhD Active GUAIFENESIN-CODEINE 100-10 MG/5ML ORAL SYRUP 5ml every 4 to 6 hours as needed for cough GUAIFENESIN-CODEINE 46850330524 No Longer Active Annita Mejia MD PhD Active FLONASE 50 MCG/ACT NASAL SUSPENSION 1 spray each nostril am and hs FLUTICASONE PROPIONATE 99508237389 No Longer Active Kendell Coronado MD Active MELOXICAM 15 MG ORAL TABLET 1 po q day for pain with food MELOXICAM 52049914876 No Longer Active Kendell Coronado MD Active HYDROCODONE-ACETAMINOPHEN 5-325 MG ORAL TABLET 1-2 q 4-6 hrs prn pain 20 tabs HYDROCODONE-ACETAMINOPHEN 03991856587 No Longer Active Daniele Mcfadden DO Active PREDNISONE 20 MG ORAL TABLET 1 tablet twice daily for 2 days, then 1 tablet once daily for 2 days PREDNISONE 60619917650 No Longer Active Daniele Mcfadden DO Active PREDNISONE 20 MG ORAL TABLET 1 po bid 2 days, then daily for 2 days PREDNISONE 78066878631 No Longer Active Alexander LOPEZ Active AZITHROMYCIN 250 MG ORAL TABLET 2 po qd x 1 day, then 1 po qd x 4 days 08/05 AZITHROMYCIN 36494959136 No Longer Active Daniele Mcfadden DO Active MUCINEX MAXIMUM STRENGTH TABLET EXTENDED RELEASE 12 HOUR 1 po qd GUAIFENESIN [id number] 84076717970 No Longer Active Daniele Mcfadden DO Active AZITHROMYCIN 250 MG ORAL TABLET 2 po qd x 1 day, then 1 po qd x 4 days 11/26 AZITHROMYCIN 01701008398 No Longer Active Margarito Kelley MD Active MUCINEX MAXIMUM STRENGTH TABLET EXTENDED RELEASE 12 HOUR 1 po qd MUCINEX MAXIMUM STRENGTH TABLET EXTENDED RELEASE 12 HOUR GUAIFENESIN [id number] Inactive PREDNISONE 20 MG ORAL TABLET 1 po bid 2 days, then daily for 2 days PREDNISONE 20 MG ORAL TABLET 218367 PREDNISONE Inactive PREDNISONE 20 MG ORAL TABLET 1 tablet twice daily for 2 days, then 1 tablet once daily for 2 days PREDNISONE 20 MG ORAL TABLET 153245 PREDNISONE Inactive HYDROCODONE-ACETAMINOPHEN 5-325 MG ORAL TABLET 1-2 q 4-6 hrs prn pain 20 tabs HYDROCODONE-ACETAMINOPHEN 5-325 MG ORAL TABLET 610636 HYDROCODONE-ACETAMINOPHEN Inactive MELOXICAM 15 MG ORAL TABLET 1 po q day for pain with food MELOXICAM 15 MG ORAL TABLET 434806 MELOXICAM Inactive FLONASE 50 MCG/ACT NASAL SUSPENSION 1 spray each nostril am and hs FLONASE 50 MCG/ACT NASAL SUSPENSION 1263913 FLUTICASONE PROPIONATE Inactive GUAIFENESIN-CODEINE 100-10 MG/5ML ORAL SYRUP 5ml every 4 to 6 hours as needed for cough GUAIFENESIN-CODEINE 100-10 MG/5ML ORAL SYRUP 870582 GUAIFENESIN-CODEINE Inactive ZITHROMAX Z-MARY 250 MG ORAL TABLET 2 today and then 1 daily for 4 days 03/11 ZITHROMAX Z-MARY 250 MG ORAL TABLET 171778 AZITHROMYCIN Inactive CEFTIN 500 MG ORAL TABLET [...] CONGESTION TABLET EXTENDED RELEASE 12 HOUR FEXOFENADINE-PSEUDOEPHEDRINE [id number] Inactive PREDNISONE 20 MG ORAL TABLET 1 tablet twice daily for 2 days, then 1 tablet once daily for 2 days PREDNISONE 20 MG ORAL TABLET 614254 PREDNISONE Inactive GUAIFENESIN ER 600 MG ORAL TABLET EXTENDED RELEASE 12 HOUR 1 twice a day as needed for congestion GUAIFENESIN ER 600 MG ORAL TABLET EXTENDED RELEASE 12 HOUR GUAIFENESIN Inactive FLUTICASONE PROPIONATE 50 MCG/ACT NASAL SUSPENSION 1 to 2 sprays each nostril daily FLUTICASONE PROPIONATE 50 MCG/ACT NASAL SUSPENSION 2511171 FLUTICASONE PROPIONATE Inactive MUCINEX D 60-600 MG ORAL TABLET EXTENDED RELEASE 12 HOUR 1 po BID PRN Congestion MUCINEX D 60-600 MG ORAL TABLET EXTENDED RELEASE 12 HOUR PSEUDOEPHEDRINE-GUAIFENESIN Inactive PREDNISONE 20 MG ORAL TABLET two tabs by mouth today, then one tab by mouth days two and three PREDNISONE 20 MG ORAL TABLET 757561 PREDNISONE Inactive PREDNISONE 10 MG ORAL TABLET 2 TABS BY MOUTH TODAY, THEN 1 TAB BY MOUTH DAYS 2 -5 PREDNISONE 10 MG ORAL TABLET 858789 PREDNISONE Inactive PREDNISONE 20 MG ORAL TABLET 2 tabs by mouth today, then 1 tab tomorrow 08/30 PREDNISONE 20 MG ORAL TABLET 685555 PREDNISONE Inactive AZITHROMYCIN 250 MG ORAL TABLET 2 po qd x 1 day, then 1 po qd x 4 days 11/26 AZITHROMYCIN 250 MG ORAL TABLET 601347 AZITHROMYCIN Inactive AZITHROMYCIN 250 MG ORAL TABLET 2 po qd x 1 day, then 1 po qd x 4 days 08/05 AZITHROMYCIN 250 MG ORAL TABLET 998121 AZITHROMYCIN Inactive MEDROL 4 MG ORAL TABLET THERAPY PACK 6 pills on day 1, 5 pills on day 2, 4 pills on day 3, 4 pills on day 4, 2 pills on day 5, 1 pill on day 6 MEDROL 4 MG ORAL TABLET THERAPY PACK 892142 METHYLPREDNISOLONE Inactive CEPHALEXIN 500 MG ORAL CAPSULE 1 tablet by mouth three times daily for ten days CEPHALEXIN 500 MG ORAL CAPSULE 474262 CEPHALEXIN Inactive PREDNISONE 20 MG ORAL TABLET 2 tabs daily for 3 days, 1 tab daily for 3 days, 1/2 tab daily for 2 days PREDNISONE 20 MG ORAL TABLET 246901 PREDNISONE Inactive CEFDINIR 300 MG ORAL CAPSULE 1 cap by mouth twice a day CEFDINIR 300 MG ORAL CAPSULE 542289 CEFDINIR Inactive PREDNISONE 20 MG ORAL TABLET 2 tabs daily for 3 days, 1 tab daily for 3 days, 1/2 tab daily for 2 days PREDNISONE 20 MG ORAL TABLET 785302 PREDNISONE Inactive PREDNISONE 20 MG ORAL TABLET 2 tabs daily for 3 days, 1 tab daily for 3 days, 1/2 tab daily for 2 days PREDNISONE 20 MG ORAL TABLET 500555 PREDNISONE Inactive CEFDINIR 300 MG ORAL CAPSULE by mouth twice a day CEFDINIR 300 MG ORAL CAPSULE 206956 CEFDINIR Inactive PREDNISONE 20 MG ORAL TABLET 2 tabs daily for 3 days, 1 tab daily for 3 days, 1/2 tab daily for 2 days PREDNISONE 20 MG ORAL TABLET 513008 PREDNISONE Inactive CEFDINIR 300 MG ORAL CAPSULE 1 po BID x 10 days CEFDINIR 300 MG ORAL CAPSULE 361292 CEFDINIR Inactive AZITHROMYCIN 250 MG ORAL TABLET 2 po qd x 1 day, then 1 po qd x 4 days 08/30 AZITHROMYCIN 250 MG ORAL TABLET 183635 AZITHROMYCIN Inactive PREDNISONE 20 MG ORAL TABLET 2 tabs daily for 3 days, 1 tab daily for 3 days, 1/2 tab daily for 2 days start tomorrow 07/31/16 PREDNISONE 20 MG ORAL TABLET 599841 PREDNISONE Inactive AZITHROMYCIN 250 MG ORAL TABLET 2 po qd x 1 day, then 1 po qd x 4 days 07/24 AZITHROMYCIN 250 MG ORAL TABLET 867226 AZITHROMYCIN Inactive Immunizations Vaccine Administration Date Value Standard Description Human Papillomavirus vaccine (Gardasil) #2, (HPV #2) Gardasil [ [id number]] human papilloma virus vaccine, quadrivalent Seasonal influenza vaccine, injectable, containing preservative, for > 3 years old (Afluria, FluLaval, Fluzone, Fluvirin, Fluarix, Agriflu(>=18 yo)) Fluzone (>3 yrs.) [[id number]] Influenza, seasonal, injectable Human Papillomavirus Vaccine (Gardasil) #1 Given (HPV #1) Gardasil [CVX62] human papilloma virus vaccine, quadrivalent hepatitis A immunization #2 Havrix-Pedi hepatitis A vaccine, unspecified formulation Boostrix (Tetanus toxoid, reduced diphtheria toxoid and acellular pertussis vaccine, adsorbed), booster Boostrix [[id number]] tetanus toxoid, reduced diphtheria toxoid, and acellular [...] Negative Encounters Code Encounter Date Provider Facility CPT-71909 Level 3 Est. Patient 16:00:45 CDT Daniele Mcfadden DO [facility] CPT-48881 Level 3 Est. Patient 15:57:40 CDT Daniele [facility] CPT-89684 Level 3 Est. Patient 09:35:49 CHIEF PROCUREMENT OFFICER Daniele Mcfadden [facility] CPT-44992 Level 3 Est. Patient 09:35:25 CHIEF PROCUREMENT OFFICER Daniele Mcfadden [facility] CPT-85167 Level 3 Est. Patient 16:03:55 CHIEF PROCUREMENT OFFICER Whitley Quiroz [facility] CPT-61432 Level 3 Est. Patient 17:42:49 CHIEF PROCUREMENT OFFICER Whitley Quiroz [facility] CPT-67126 Level 3 Est. Patient 10:49:47 CHIEF PROCUREMENT OFFICER Griselda Horvath [facility] [place][note 2] CPT-98193 Level 3 Est. Patient 08:43:59 CHIEF PROCUREMENT OFFICER Jessika Nunes [facility] [place][note 2] CPT-98168 Level 3 Est. Patient 09:05:19 CHIEF PROCUREMENT OFFICER Griselda Horvath [facility] [place][note 2] CPT-41590 Level 3 Est. Patient 15:45:46 CDT Griselda Horvath [facility] [place][note 2] CPT-07709 Level 3 Est. Patient 14:15:52 CDT Daniele Mcfadden [facility] CPT-75256 Level 3 Est. Patient 13:57:19 CHIEF PROCUREMENT OFFICER Margarito Kelley MD [facility] CPT-62086 Level 3 Est. Patient 09:16:05 CHIEF PROCUREMENT OFFICER Margarito Kelley MD [facility] CPT-74229 Level 3 Est. Patient 15:37:06 CHIEF PROCUREMENT OFFICER Daniele Mcfadden [facility] CPT-28494 Level 3 Est. Patient 11:56:34 CHIEF PROCUREMENT OFFICER Renée Adames [facility] CPT-80782 Level 3 Est. Patient 12:19:42 CDT Daniele Mcfadden [facility] CPT-02521 Level 3 Est. Patient 11:08:45 CDT Annita Mejia MD, PhD [facility] CPT-10446 Level 3 Est. Patient 12:00:17 CDT Kendell Coronado MD [facility] CPT-97346 Level 3 Est. Patient 12:27:25 CDT Daniele Gaetano Bogdan [facility] CPT-87125 Level 3 Est. Patient 18:45:11 CHIEF PROCUREMENT OFFICER Daniele Mcfadden [facility] CPT-78232 Level 3 Est. Patient 10:12:24 CHIEF PROCUREMENT OFFICER Daniele Mcfadden [facility] CPT-05377 Level 3 Est. Patient 14:35:11 CHIEF PROCUREMENT OFFICER Daniele Mcfadden [facility] CPT-60719 Level 3 Est. Patient 14:11:04 CDT Daniele Gaetano Bogdan [facility] CPT-99708 Level 3 Est. Patient 10:52:13 CDT Alexander LOPEZ [facility] CPT-52562 Level 3 Est. Patient 11:01:08 CHIEF PROCUREMENT OFFICER Daniele Mcfadden [facility] CPT-41439 Level 3 Est. Patient 10:55:35 CDT Daniele Salter [facility] CPT-77077 Level 3 Est. Patient 14:03:08 CDT Daniele Gaetano Mcfadden [facility] CPT-88106 Level 3 Est. Patient 11:26:19 CDT Margarito Kelley MD [facility] CPT-25983 Level 2 Est. Patient 15:32:04 CHIEF PROCUREMENT OFFICER Daniele Mcfadden [facility] CPT-29019 Level 3 Est. Patient 16:01:26 CHIEF PROCUREMENT OFFICER Daniele Mcfadden [facility] CPT-25007 Level 3 Est. Patient 06:37:10 CHIEF PROCUREMENT OFFICER Daniele Mcfadden [facility] Procedures Code Procedure Name Date Entry Date Standard Description CPT-57458 Addl Vx - Ix admin via ID IM or jet injects without counseling by physician 14:37:19 CDT CPT-20342 Meningococcal B, recombinant vaccine 14:37:19 CDT 03/05 CPT-79513 First Vx - Ix admin via ID IM or jet injects without counseling by physician 14:37:19 CDT CPT-52170 Menveo Intramuscular Solution Reconstituted 14:37:19 CDT CPT-40996 Meningococcal Conjugate Vacine (Menactra) 11:20:04 CDT CPT-99799 Throat Culture - LAB USE ONLY 12:15:45 CHIEF PROCUREMENT OFFICER CPT-92142 Misa Flu A/B - LAB USE ONLY 12:15:45 CHIEF PROCUREMENT OFFICER CPT-11612 Rapid Strep (Reflex throat) - LAB USE ONLY 12:15:45 CHIEF PROCUREMENT OFFICER CPT-47591 Rapid Strep (Grp A) - LAB USE ONLY 13:06:06 CDT CPT-22908 Abd compl w upright 12:34:39 CDT CPT-32685 Immunization Single Admin 11:38:41 CDT CPT-78987 Fluzone Quadrivalent Intramuscular Suspension 0.5 ML 11: 38:41 CDT CPT-OV Office Visit 14:45:12 CHIEF PROCUREMENT OFFICER CPT-51821 [employer] inc all organs plus proximal aorta and distal IVC 2012 12:13:02 CHIEF PROCUREMENT OFFICER CPT-59261 Abd compl w upright 15:12:58 CHIEF PROCUREMENT OFFICER CPT-46031 Venipuncture Draw Fee 14:38:32 CHIEF PROCUREMENT OFFICER CPT-35530 Administration single or combination vaccine inc oral 17 :10:04 CDT CPT-53790 Gardasil 17:10:04 CDT CPT-33573 Venipuncture Draw Fee 16:07:54 CHIEF PROCUREMENT OFFICER CPT-35529 Administration 2+ single or combination vaccines inc oral 17:22:02 CDT CPT-78306 Administration single or combination vaccine inc oral 17 :22:02 CDT CPT-26133 Influenza split virus > age 3 17:22:02 CDT CPT-50640 Gardasil 17:22:02 CDT CPT-53825 Administration 2+ single or combination vaccines inc oral 14:38:31 CDT CPT-56611 Administration single or combination vaccine inc oral 14 :38:31 CDT CPT-52191 Meningococcal Conjugate Vacine (Menactra) 14:38:31 CDT CPT-96555 Gardasil 14:38:31 CDT
--- OUTSIDE RECORDS SUMMARY | 2018-02-15 06:39 | XMS REPORT | Clinical Summary ---
Author Author Admin, OLEG Organization [facility] Address Unknown Phone Unavailable Allergies, Adverse Reactions, [...] unspecified site Sinusitis 473.9 Active Griselda Horvath BIAZZI NITRATOR OPERATOR Unspecified sinusitis (chronic) Eustachian tube dysfunction, right [...] Status Provider Patient Instruction GUAIFENESIN 600 MG [id number] 1 twice a day as needed for congestion GUAIFENESIN 03033044443 Active Jillina Frazell BIAZZI NITRATOR OPERATOR Active FLUTICASONE PROPIONATE 50 MCG/ACT SUSP 1 to 2 sprays each nostril daily 03/20 FLUTICASONE PROPIONATE 49733649440 Active Jillina Frazell BIAZZI NITRATOR OPERATOR Active CEFDINIR 300 MG CAPS by mouth twice a day CEFDINIR 76159954556 No Longer Active Jillina Frazell BIAZZI NITRATOR OPERATOR Active PREDNISONE 20 MG TAB 1 tablet twice daily for 2 days, then 1 tablet once daily for 2 days PREDNISONE 20449653159 No Longer Active Jillina Frazell BIAZZI NITRATOR OPERATOR Active PREDNISONE 20 MG TAB 2 tabs daily for 3 days, 1 tab daily for 3 days, 1/2 tab daily for 2 days PREDNISONE 75653547988 No Longer Active Margarito Kelley MD Active IRVING-D ALLERGY & CONGESTION [id number] 1 po bid FEXOFENADINE-PSEUDOEPHEDRINE [id number] 78243193067 No Longer Active Margarito Kelley MD Active PREDNISONE 20 MG TAB 2 tabs daily for 3 days, 1 tab daily for 3 days, 1/2 tab daily for 2 days PREDNISONE 02425690313 No Longer Active Jillina Frazell BIAZZI NITRATOR OPERATOR Active CEFDINIR 300 MG CAPS 1 cap by mouth twice a day CEFDINIR 45365289351 No Longer Active Jillina Frazell BIAZZI NITRATOR OPERATOR Active E-Z SPACER ERIBERTO use with proair inhalier every 4 times as need. SPACER/AERO-HOLDING CHAMBERS 59613277682 No Longer Active Jillina Frazell BIAZZI NITRATOR OPERATOR Active PROAIR HFA 108 (90 BASE) MCG/ACT AERS 2 puffs every 4 hours as needed 2014 ALBUTEROL SULFATE 80818850004 No Longer Active Jillina Frazell BIAZZI NITRATOR OPERATOR Active CEFTIN 500 MG TAB 1 tablet by mouth twice daily for ten days. CEFUROXIME AXETIL 04860002975 No Longer Active Jillina Frazell BIAZZI NITRATOR OPERATOR Active PREDNISONE 20 MG TAB 2 tabs daily for 3 days, 1 tab daily for 3 days, 1/2 tab daily for 2 days PREDNISONE 54658121576 No Longer Active Margarito Kelley MD Active CEPHALEXIN 500 MG CAPS 1 tablet by mouth three times daily for ten days 06/25 CEPHALEXIN 78006570731 No Longer Active Renée Adames ALEX Active MEDROL (MARY) 4 MG TABS 6 pills on day 1, 5 pills on day 2, 4 pills on day 3, 4 pills on day 4, 2 pills on day 5, 1 pill on day 6 METHYLPREDNISOLONE 62340471514 No Longer Active Annita Mejia MD PhD Active ZITHROMAX Z-MARY 250 MG TABS 2 today and then 1 daily for 4 days AZITHROMYCIN 28203576909 No Longer Active Annita Mejia MD PhD Active GUAIFENESIN-CODEINE 100-10 MG/5ML SYRP 5ml every 4 to 6 hours as needed for cough GUAIFENESIN-CODEINE 50857089066 No Longer Active Annita Mejia MD PhD Active FLONASE 50 MCG/ACT SUSP 1 spray each nostril am and hs FLUTICASONE PROPIONATE 88042095504 No Longer Active Kendell Coronado MD Active MELOXICAM 15 MG TABS 1 po q day for pain with food MELOXICAM 49771074373 No Longer Active Kendell Coronado MD Active HYDROCODONE-ACETAMINOPHEN 5-325 MG TABS 1-2 q 4-6 hrs prn pain 20 tabs 07/04 HYDROCODONE-ACETAMINOPHEN 51366577006 No Longer Active Daniele Mcfadden DO Active PREDNISONE 20 MG TAB 1 tablet twice daily for 2 days, then 1 tablet once daily for 2 days PREDNISONE 38306220820 No Longer Active Daniele Mcfadden DO Active PREDNISONE 20 MG TAB 1 po bid 2 days, then daily for 2 days 12/27 PREDNISONE 46915472541 No Longer Active Alexander LOPZE Active AZITHROMYCIN 250 MG TABS 2 po qd x 1 day, then 1 po qd x 4 days AZITHROMYCIN 49831284704 No Longer Active Daniele Mcfadden DO Active MUCINEX MAXIMUM STRENGTH [id number] 1 po qd GUAIFENESIN XR12H- TAB 68240197793 No Longer Active Daniele Mcfadden DO Active AZITHROMYCIN 250 MG TABS 2 po qd x 1 day, then 1 po qd x 4 days AZITHROMYCIN 77704585463 No Longer Active Margarito Kelley MD Active MUCINEX MAXIMUM STRENGTH [id number] 1 po qd MUCINEX MAXIMUM STRENGTH [id number] GUAIFENESIN [id number] Inactive PREDNISONE 20 MG TAB 1 po bid 2 days, then daily for 2 days 12/27 PREDNISONE 20 MG TAB 297866 PREDNISONE Inactive PREDNISONE 20 MG TAB 1 tablet twice daily for 2 days, then 1 tablet once daily for 2 days PREDNISONE 20 MG TAB 901082 PREDNISONE Inactive HYDROCODONE-ACETAMINOPHEN 5-325 MG TABS 1-2 q 4-6 hrs prn pain 20 tabs 07/04 HYDROCODONE-ACETAMINOPHEN 5-325 MG TABS 377404 HYDROCODONE- ACETAMINOPHEN Inactive MELOXICAM 15 MG TABS 1 po q day for pain with food MELOXICAM 15 MG TABS 633694 MELOXICAM Inactive FLONASE 50 MCG/ACT SUSP 1 spray each nostril am and hs FLONASE 50 MCG/ACT SUSP FLUTICASONE PROPIONATE Inactive GUAIFENESIN-CODEINE 100-10 MG/5ML SYRP 5ml every 4 to 6 hours as needed for cough GUAIFENESIN-CODEINE 100-10 MG/5ML SYRP 511009 GUAIFENESIN-CODEINE Inactive ZITHROMAX Z-MARY 250 MG TABS 2 today and then 1 daily for 4 days ZITHROMAX Z-MARY 250 MG TABS 4205820 AZITHROMYCIN Inactive CEFTIN 500 MG TAB 1 tablet by mouth twice daily for ten days. CEFTIN 500 MG TAB 719144 CEFUROXIME AXETIL Inactive PROAIR HFA 108 (90 BASE) MCG/ACT AERS 2 puffs every 4 hours as needed 2014 PROAIR HFA 108 (90 BASE) MCG/ACT AERS ALBUTEROL SULFATE Inactive E-Z SPACER ERIBERTO use with proair inhalier every 4 times as need. E-Z SPACER ERIBERTO SPACER/AERO-HOLDING CHAMBERS Inactive IRVING-D ALLERGY & CONGESTION [id number] 1 po bid IRVING-D ALLERGY & CONGESTION [id number] FEXOFENADINE-PSEUDOEPHEDRINE XR12H- TAB Inactive PREDNISONE 20 MG TAB 1 tablet twice daily for 2 days, then 1 tablet once daily for 2 days PREDNISONE 20 MG TAB 733358 PREDNISONE Inactive AZITHROMYCIN 250 MG TABS 2 po qd x 1 day, then 1 po qd x 4 days AZITHROMYCIN 250 MG TABS 8302083 AZITHROMYCIN Inactive AZITHROMYCIN 250 MG TABS 2 po qd x 1 day, then 1 po qd x 4 days AZITHROMYCIN 250 MG TABS 7344601 AZITHROMYCIN Inactive MEDROL (MARY) 4 MG TABS 6 pills on day 1, 5 pills on day 2, 4 pills on day 3, 4 pills on day 4, 2 pills on day 5, 1 pill on day 6 MEDROL (MARY) 4 MG TABS 748087 METHYLPREDNISOLONE Inactive CEPHALEXIN 500 MG CAPS 1 tablet by mouth three times daily for ten days 06/25 CEPHALEXIN 500 MG CAPS 047181 CEPHALEXIN Inactive PREDNISONE 20 MG TAB 2 tabs daily for 3 days, 1 tab daily for 3 days, 1/2 tab daily for 2 days PREDNISONE 20 MG TAB 344315 PREDNISONE Inactive CEFDINIR 300 MG CAPS 1 cap by mouth twice a day CEFDINIR 300 MG CAPS 469590 CEFDINIR Inactive PREDNISONE 20 MG TAB 2 tabs daily for 3 days, 1 tab daily for 3 days, 1/2 tab daily for 2 days PREDNISONE 20 MG TAB 669234 PREDNISONE Inactive PREDNISONE 20 MG TAB 2 tabs daily for 3 days, 1 tab daily for 3 days, 1/2 tab daily for 2 days PREDNISONE 20 MG TAB 415073 PREDNISONE Inactive CEFDINIR 300 MG CAPS by mouth twice a day CEFDINIR 300 MG CAPS 186150 CEFDINIR Inactive Immunizations Vaccine Administration Date Value Standard Description Human Papillomavirus vaccine (Gardasil) #2, (HPV #2) Gardasil [ [id number]] human papilloma virus vaccine, quadrivalent Seasonal influenza vaccine, injectable, containing preservative, for > 3 years old (Afluria, FluLaval, Fluzone, Fluvirin, Fluarix, Agriflu(>=18 yo)) Fluzone (>3 yrs.) [[id number]] Influenza, seasonal, injectable Human Papillomavirus Vaccine (Gardasil) #1 Given (HPV #1) Gardasil [CVX62] human papilloma virus vaccine, quadrivalent hepatitis A immunization #2 Havrix-Pedi hepatitis A vaccine, unspecified formulation Boostrix (Tetanus toxoid, reduced diphtheria toxoid and acellular pertussis vaccine, adsorbed), booster Boostrix [MKL044] tetanus toxoid, reduced diphtheria toxoid, and acellular [...] Negative Encounters Code Encounter Date Provider Facility CPT-70014 Level 3 Est. Patient 15:45:46 CDT Griselda Horvath [facility] CPT-67964 Level 3 Est. Patient 14:15:52 CDT Daniele Mcfadden [facility] CPT-35288 Level 3 Est. 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 Patient 09:16:05 AQUACULTURAL WORKER SUPERVISOR Margarito Kelley MD [facility] CPT-51231 Level 3 Est. Patient 15:37:06 AQUACULTURAL WORKER SUPERVISOR Daniele Mcfadden [facility] CPT-86323 Level 3 Est. Patient 11:56:34 AQUACULTURAL WORKER SUPERVISOR Renée Adames [facility] CPT-92901 Level 3 Est. Patient 12:19:42 CDT Daniele Mcfadden [facility] CPT-75986 Level 3 Est. Patient 11:08:45 CDT Annita Mejia MD PhD [facility] CPT-79722 Level 3 Est. Patient 12:00:17 CDT Kendell Coronado MD [facility] CPT-46005 Level 3 Est. Patient 12:27:25 CDT Daniele Mcfadden [facility] CPT-19418 Level 3 Est. Patient 18:45:11 AQUACULTURAL WORKER SUPERVISOR Daniele Mcfadden [facility] CPT-36597 Level 3 Est. Patient 10:12:24 AQUACULTURAL WORKER SUPERVISOR Daniele Mcfadden [facility] CPT-39745 Level 3 Est. Patient 14:35:11 AQUACULTURAL WORKER SUPERVISOR Daniele Mcfadden [facility] CPT-37470 Level 3 Est. Patient 14:11:04 CDT Daniele Mcfadden [facility] CPT-03337 Level 3 Est. Patient 10:52:13 CDT Alexander LOPEZ [facility] CPT-80192 Level 3 Est. Patient 11:01:08 AQUACULTURAL WORKER SUPERVISOR Daniele Mcfadden [facility] CPT-43645 Level 3 Est. Patient 10:55:35 CDT Daniele Mcfadden [facility] CPT-76395 Level 3 Est. Patient 14:03:08 CDT Daniele Mcfadden [facility] CPT-15892 Level 3 Est. Patient 11:26:19 CDT Margarito Kelley MD [facility] CPT-08978 Level 2 Est. Patient 15:32:04 AQUACULTURAL WORKER SUPERVISOR Daniele Mcfadden [facility] CPT-97116 Level 3 Est. Patient 16:01:26 AQUACULTURAL WORKER SUPERVISOR Daniele Mcfadden [facility] CPT-94621 Level 3 Est. Patient 06:37:10 AQUACULTURAL WORKER SUPERVISOR Daniele [facility] Procedures Code Procedure Name Date Entry Date Standard Description CPT-73985 Rapid Strep (Grp A) - LAB USE ONLY 13:06:06 CDT CPT-16877 Abd compl w upright 12:34:39 CDT CPT-29102 Immunization Single Admin 11:38:41 CDT CPT-90703 Fluzone Quadrivalent Intramuscular Suspension 0.5 ML 11: 38:41 CDT CPT-OV Office Visit 14:45:12 AQUACULTURAL WORKER SUPERVISOR CPT-93889 [employer] inc all organs plus proximal aorta and distal IVC 2012 12:13:02 AQUACULTURAL WORKER SUPERVISOR CPT-15775 Abd compl w upright 15:12:58 AQUACULTURAL WORKER SUPERVISOR CPT-57080 Venipuncture Draw Fee 14:38:32 AQUACULTURAL WORKER SUPERVISOR CPT-16223 Administration single or combination vaccine inc oral 17 :10:04 CDT CPT-02838 Gardasil 17:10:04 CDT CPT-49106 Venipuncture Draw Fee 16:07:54 AQUACULTURAL WORKER SUPERVISOR CPT-62835 Administration 2+ single or combination vaccines inc oral 17:22:02 CDT CPT-62484 Administration single or combination vaccine inc oral 17 :22:02 CDT CPT-45484 Influenza split virus > age 3 17:22:02 CDT CPT-00523 Gardasil 17:22:02 CDT CPT-57563 Administration 2+ single or combination vaccines inc oral 14:38:31 CDT CPT-37059 Administration single or combination vaccine inc oral 14 :38:31 CDT CPT-46557 Meningococcal Conjugate Vacine (Menactra) 14:38:31 CDT CPT-50833 Gardasil 14:38:31 CDT
--- OUTSIDE RECORDS SUMMARY | 2018-02-15 06:40 | XMS REPORT | Clinical Summary ---
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 Medication List Medication Instructions Start Date Stop Date Generic Name NDC Status Provider Patient Instruction PREDNISONE 10 MG ORAL TABLET 2 TABS BY MOUTH TODAY, THEN 1 TAB BY MOUTH DAYS 2 -5 PREDNISONE 23927013745 Active Daniele Mcfadden DO Active PREDNISONE 20 MG ORAL TABLET two tabs by mouth today, then one tab by mouth days two and three PREDNISONE 68119323680 No Longer Active Whitley Hernandez Active AZITHROMYCIN 250 MG ORAL TABLET 2 po qd x 1 day, then 1 po qd x 4 days 07/24 AZITHROMYCIN 54147584320 No Longer Active Daniele Mcfadden DO Active IRVING-D ALLERGY & CONGESTION 60-120 MG ORAL TABLET EXTENDED RELEASE 12 HOUR 1 tablet twice daily as needed for congestion/allergies FEXOFENADINE-PSEUDOEPHEDRINE 98193975607 Active Holly Sharma Active PREDNISONE 20 MG ORAL TABLET 2 tabs daily for 3 days, 1 tab daily for 3 days, 1/2 tab daily for 2 days start tomorrow 07/31/16 PREDNISONE 42828098883 No Longer Active Jillina Alexandru JOHNSON Active AZITHROMYCIN 250 MG ORAL TABLET 2 po qd x 1 day, then 1 po qd x 4 days 08/30 AZITHROMYCIN 71098161140 No Longer Active Jillina Alexandru JOHNSON Active MUCINEX D 60-600 MG ORAL TABLET EXTENDED RELEASE 12 HOUR 1 po BID PRN Congestion PSEUDOEPHEDRINE-GUAIFENESIN 74786265793 No Longer Active Jessika Nunes APRN Active CEFDINIR 300 MG ORAL CAPSULE 1 po BID x 10 days CEFDINIR 73502220460 No Longer Active Jillina Alexandru JOHNSON Active PREDNISONE 20 MG ORAL TABLET 2 tabs daily for 3 days, 1 tab daily for 3 days, 1/2 tab daily for 2 days PREDNISONE 17291825980 No Longer Active Jillina Frazell INSPECTOR [employer]S Active FLUTICASONE PROPIONATE 50 MCG/ACT NASAL SUSPENSION 1 to 2 sprays each nostril daily FLUTICASONE PROPIONATE 72718188508 No Longer Active Jillina Frazell INSPECT[employer] Active GUAIFENESIN ER 600 MG ORAL TABLET EXTENDED RELEASE 12 HOUR 1 twice a day as needed for congestion GUAIFENESIN 00247026055 No Longer Active Ezekielllina Jiml INSPECTOR [employer]S Active CEFDINIR 300 MG ORAL CAPSULE by mouth twice a day CEFDINIR 03938196005 No Longer Active Jillina Frazell INSPECT[employer] Active PREDNISONE 20 MG ORAL TABLET 1 tablet twice daily for 2 days, then 1 tablet once daily for 2 days PREDNISONE 87846855754 No Longer Active Jillina Framarkl INSPECTOR [employer] Active PREDNISONE 20 MG ORAL TABLET 2 tabs daily for 3 days, 1 tab daily for 3 days, 1/2 tab daily for 2 days PREDNISONE 95528677901 No Longer Active Margarito Kelley MD Active IRVING-D ALLERGY & CONGESTION TABLET EXTENDED RELEASE 12 HOUR 1 po bid 05/26 FEXOFENADINE-PSEUDOEPHEDRINE [id number] 44475966869 No Longer Active Margarito Kelley MD Active PREDNISONE 20 MG ORAL TABLET 2 tabs daily for 3 days, 1 tab daily for 3 days, 1/2 tab daily for 2 days PREDNISONE 19523331699 No Longer Active Ezekielllina Alexandru JOHNSON Active CEFDINIR 300 MG ORAL CAPSULE 1 cap by mouth twice a day CEFDINIR 14599096314 No Longer Active Jillina Jiml INSPECT[employer] Active E-Z SPACER DEVICE use with proair inhalier every 4 times as need. SPACER/AERO-HOLDING CHAMBERS 30999958808 No Longer Active Jillina Jiml [employer]PECT[employer] Active PROAIR HFA 108 (90 Base) MCG/ACT INHALATION AEROSOL SOLUTION 2 puffs every 4 hours as needed ALBUTEROL SULFATE 07458401891 No Longer Active Ezekielllina Alexandru ONTIVEROSN Active CEFTIN 500 MG ORAL TABLET 1 tablet by mouth twice daily for ten days. CEFUROXIME AXETIL 90990987982 No Longer Active Ezekielllsd Horvath APRN Active PREDNISONE 20 MG ORAL TABLET 2 tabs daily for 3 days, 1 tab daily for 3 days, 1/2 tab daily for 2 days PREDNISONE 68299051947 No Longer Active Margarito Kelley MD Active CEPHALEXIN 500 MG ORAL CAPSULE 1 tablet by mouth three times daily for ten days CEPHALEXIN 46602635062 No Longer Active Renée Adames ALEX Active MEDROL 4 MG ORAL TABLET THERAPY PACK 6 pills on day 1, 5 pills on day 2, 4 pills on day 3, 4 pills on day 4, 2 pills on day 5, 1 pill on day 6 METHYLPREDNISOLONE 17562955142 No Longer Active Annita Mejia MD PhD Active ZITHROMAX Z-MARY 250 MG ORAL TABLET 2 today and then 1 daily for 4 days 03/11 AZITHROMYCIN 04368393791 No Longer Active Annita Mejia MD PhD Active GUAIFENESIN-CODEINE 100-10 MG/5ML ORAL SYRUP 5ml every 4 to 6 hours as needed for cough GUAIFENESIN-CODEINE 88994764544 No Longer Active Annita Mejia MD PhD Active FLONASE 50 MCG/ACT NASAL SUSPENSION 1 spray each nostril am and hs FLUTICASONE PROPIONATE 10847795446 No Longer Active Kendell Coronado MD Active MELOXICAM 15 MG ORAL TABLET 1 po q day for pain with food MELOXICAM 17075869968 No Longer Active Kendell Coronado MD Active HYDROCODONE-ACETAMINOPHEN 5-325 MG ORAL TABLET 1-2 q 4-6 hrs prn pain 20 tabs HYDROCODONE-ACETAMINOPHEN 19294153841 No Longer Active Daniele Mcfadden DO Active PREDNISONE 20 MG ORAL TABLET 1 tablet twice daily for 2 days, then 1 tablet once daily for 2 days PREDNISONE 44036207644 No Longer Active Daniele Mcfadden DO Active PREDNISONE 20 MG ORAL TABLET 1 po bid 2 days, then daily for 2 days PREDNISONE 49299618956 No Longer Active Alexander LOPEZ Active AZITHROMYCIN 250 MG ORAL TABLET 2 po qd x 1 day, then 1 po qd x 4 days 08/05 AZITHROMYCIN 44664799757 No Longer Active Daniele Mcfadden DO Active MUCINEX MAXIMUM STRENGTH TABLET EXTENDED RELEASE 12 HOUR 1 po qd GUAIFENESIN [id number] 04846836941 No Longer Active Daniele Mcfadden DO Active AZITHROMYCIN 250 MG ORAL TABLET 2 po qd x 1 day, then 1 po qd x 4 days 11/26 AZITHROMYCIN 24772062539 No Longer Active Margarito Kelley MD Active MUCINEX MAXIMUM STRENGTH TABLET EXTENDED RELEASE 12 HOUR 1 po qd MUCINEX MAXIMUM STRENGTH TABLET EXTENDED RELEASE 12 HOUR GUAIFENESIN [id number] Inactive PREDNISONE 20 MG ORAL TABLET 1 po bid 2 days, then daily for 2 days PREDNISONE 20 MG ORAL TABLET 001873 PREDNISONE Inactive PREDNISONE 20 MG ORAL TABLET 1 tablet twice daily for 2 days, then 1 tablet once daily for 2 days PREDNISONE 20 MG ORAL TABLET 942754 PREDNISONE Inactive HYDROCODONE-ACETAMINOPHEN 5-325 MG ORAL TABLET 1-2 q 4-6 hrs prn pain 20 tabs HYDROCODONE-ACETAMINOPHEN 5-325 MG ORAL TABLET 993669 HYDROCODONE-ACETAMINOPHEN Inactive MELOXICAM 15 MG ORAL TABLET 1 po q day for pain with food MELOXICAM 15 MG ORAL TABLET 793499 MELOXICAM Inactive FLONASE 50 MCG/ACT NASAL SUSPENSION 1 spray each nostril am and hs FLONASE 50 MCG/ACT NASAL SUSPENSION 3436767 FLUTICASONE PROPIONATE Inactive GUAIFENESIN-CODEINE 100-10 MG/5ML ORAL SYRUP 5ml every 4 to 6 hours as needed for cough GUAIFENESIN-CODEINE 100-10 MG/5ML ORAL SYRUP 383654 GUAIFENESIN-CODEINE Inactive ZITHROMAX Z-MARY 250 MG ORAL TABLET 2 today and then 1 daily for 4 days 03/11 ZITHROMAX Z-MARY 250 MG ORAL TABLET 554690 AZITHROMYCIN Inactive CEFTIN 500 MG ORAL TABLET 1 tablet by mouth twice daily for ten days. CEFTIN 500 MG ORAL TABLET 557897 CEFUROXIME AXETIL Inactive PROAIR HFA 108 (90 [...] CONGESTION TABLET EXTENDED RELEASE 12 HOUR FEXOFENADINE-PSEUDOEPHEDRINE [id number] Inactive PREDNISONE 20 MG ORAL TABLET 1 tablet twice daily for 2 days, then 1 tablet once daily for 2 days PREDNISONE 20 MG ORAL TABLET 434002 PREDNISONE Inactive GUAIFENESIN ER 600 MG ORAL TABLET EXTENDED RELEASE 12 HOUR 1 twice a day as needed for congestion GUAIFENESIN ER 600 MG ORAL TABLET EXTENDED RELEASE 12 HOUR GUAIFENESIN Inactive FLUTICASONE PROPIONATE 50 MCG/ACT NASAL SUSPENSION 1 to 2 sprays each nostril daily FLUTICASONE PROPIONATE 50 MCG/ACT NASAL SUSPENSION 4252571 FLUTICASONE PROPIONATE Inactive MUCINEX D 60-600 MG ORAL TABLET EXTENDED RELEASE 12 HOUR 1 po BID PRN Congestion MUCINEX D 60-600 MG ORAL TABLET EXTENDED RELEASE 12 HOUR PSEUDOEPHEDRINE-GUAIFENESIN Inactive PREDNISONE 20 MG ORAL TABLET two tabs by mouth today, then one tab by mouth days two and three PREDNISONE 20 MG ORAL TABLET 144861 PREDNISONE Inactive AZITHROMYCIN 250 MG ORAL TABLET 2 po qd x 1 day, then 1 po qd x 4 days 11/26 AZITHROMYCIN 250 MG ORAL TABLET 992697 AZITHROMYCIN Inactive AZITHROMYCIN 250 MG ORAL TABLET 2 po qd x 1 day, then 1 po qd x 4 days 08/05 AZITHROMYCIN 250 MG ORAL TABLET 422306 AZITHROMYCIN Inactive MEDROL 4 MG ORAL TABLET THERAPY PACK 6 pills on day 1, 5 pills on day 2, 4 pills on day 3, 4 pills on day 4, 2 pills on day 5, 1 pill on day 6 MEDROL 4 MG ORAL TABLET THERAPY PACK 239163 METHYLPREDNISOLONE Inactive CEPHALEXIN 500 MG ORAL CAPSULE 1 tablet by mouth three times daily for ten days CEPHALEXIN 500 MG ORAL CAPSULE 864668 CEPHALEXIN Inactive PREDNISONE 20 MG ORAL TABLET 2 tabs daily for 3 days, 1 tab daily for 3 days, 1/2 tab daily for 2 days PREDNISONE 20 MG ORAL TABLET 351019 PREDNISONE Inactive CEFDINIR 300 MG ORAL CAPSULE 1 cap by mouth twice a day CEFDINIR 300 MG ORAL CAPSULE 251582 CEFDINIR Inactive PREDNISONE 20 MG ORAL TABLET 2 tabs daily for 3 days, 1 tab daily for 3 days, 1/2 tab daily for 2 days PREDNISONE 20 MG ORAL TABLET 573474 PREDNISONE Inactive PREDNISONE 20 MG ORAL TABLET 2 tabs daily for 3 days, 1 tab daily for 3 days, 1/2 tab daily for 2 days PREDNISONE 20 MG ORAL TABLET 413423 PREDNISONE Inactive CEFDINIR 300 MG ORAL CAPSULE by mouth twice a day CEFDINIR 300 MG ORAL CAPSULE 604037 CEFDINIR Inactive PREDNISONE 20 MG ORAL TABLET 2 tabs daily for 3 days, 1 tab daily for 3 days, 1/2 tab daily for 2 days PREDNISONE 20 MG ORAL TABLET 971034 PREDNISONE Inactive CEFDINIR 300 MG ORAL CAPSULE 1 po BID x 10 days CEFDINIR 300 MG ORAL CAPSULE 155122 CEFDINIR Inactive AZITHROMYCIN 250 MG ORAL TABLET 2 po qd x 1 day, then 1 po qd x 4 days 08/30 AZITHROMYCIN 250 MG ORAL TABLET 143976 AZITHROMYCIN Inactive PREDNISONE 20 MG ORAL TABLET 2 tabs daily for 3 days, 1 tab daily for 3 days, 1/2 tab daily for 2 days start tomorrow 07/31/16 PREDNISONE 20 MG ORAL TABLET 362266 PREDNISONE Inactive AZITHROMYCIN 250 MG ORAL TABLET 2 po qd x 1 day, then 1 po qd x 4 days 07/24 AZITHROMYCIN 250 MG ORAL TABLET 925870 AZITHROMYCIN Inactive Immunizations Vaccine Administration Date Value Standard Description Human Papillomavirus vaccine (Gardasil) #2, (HPV #2) Gardasil [ CVX62] human papilloma virus vaccine, quadrivalent Seasonal influenza vaccine, injectable, containing preservative, for > 3 years old (Afluria, FluLaval, Fluzone, Fluvirin, Fluarix, Agriflu(>=18 yo)) Fluzone (>3 yrs.) [[id number]] Influenza, seasonal, injectable Human Papillomavirus Vaccine (Gardasil) #1 Given (HPV #1) Gardasil [CVX62] human papilloma virus vaccine, quadrivalent hepatitis A immunization #2 Havrix-Pedi hepatitis A vaccine, unspecified formulation Boostrix (Tetanus toxoid, reduced diphtheria toxoid and acellular pertussis vaccine, adsorbed), booster Boostrix [[id number]] tetanus toxoid, reduced diphtheria toxoid, and acellular [...] Negative;Positive Encounters Code Encounter Date Provider Facility CPT-70263 Level 3 Est. Patient 16:03:55 DOLL WIG HACKLER Whitley Quiroz [facility]-20135 Level 3 Est. Patient 17:42:49 DOLL WIG HACKLER Whitley Quiroz [facility]-52969 Level 3 Est. Patient 10:49:47 DOLL WIG HACKLER Griselda Horvath [facility]-86748 Level 3 Est. Patient 08:43:59 DOLL WIG HACKLER Jessika Nunes [facility] CPT-13231 Level 3 Est. Patient 09:05:19 DOLL WIG HACKLER Griselda Horvath [facility] CPT-25003 Level 3 Est. Patient 15:45:46 CDT Griselda Horvath [facility]-74026 Level 3 Est. Patient 14:15:[address] [facility]-57253 Level 3 Est. Patient 13:57:19 DOLL WIG HACKLER Margarito Kelley MD [facility]-27572 Level 3 Est. Patient 09:16:05 DOLL WIG HACKLER Margarito Kelley MD [facility]-92629 Level 3 Est. Patient 15:37:06 DOLL WIG HACKLER Daniele Mcfadden [facility] CPT-94407 Level 3 Est. Patient 11:56:34 DOLL WIG HACKLER Renée Adames [facility] CPT-08450 Level 3 Est. Patient 12:19:42 CDT Daniele Mcfadden [facility] CPT-68729 Level 3 Est. Patient 11:08:45 CDT Annita Mejia MD PhD [facility] CPT-18715 Level 3 Est. Patient 12:00:17 CDT Kendell Coronado [facility]-58554 Level 3 Est. Patient 12:27:25 CDT Daniele Mcfadden [facility] CPT-99526 Level 3 Est. Patient 18:45:11 DOLL WIG HACKLER Daniele Mcfadden [facility] CPT-29225 Level 3 Est. Patient 10:12:24 DOLL WIG HACKLER Daniele Mcfadden [facility] CPT-54958 Level 3 Est. Patient 14:35:11 DOLL WIG HACKLER Daniele Mcfadden [facility] CPT-32363 Level 3 Est. Patient 14:11:04 CDT Daniele Mcfadden [facility] CPT-51128 Level 3 Est. Patient 10:52:13 CDT Alexander Estrada [facility] CPT-85065 Level 3 Est. Patient 11:01:08 DOLL WIG HACKLER Daniele Mcfadden [facility] CPT-85829 Level 3 Est. Patient 10:55:35 CDT Daniele Mcfadden [facility] CPT-84304 Level 3 Est. Patient 14:03:08 CDT Daniele Mcfadden [facility] CPT-54764 Level 3 Est. Patient 11:26:19 CDT Margarito Kelley MD [facility] CPT-77208 Level 2 Est. Patient 15:32:04 DOLL WIG HACKLER Daniele Mcfadden [facility] CPT-75076 Level 3 Est. Patient 16:01:26 DOLL WIG HACKLER Daniele Gaetano Bogdan [facility] CPT-97930 Level 3 Est. Patient 06:37:10 DOLL WIG HACKLER Daniele Gaetano Bogdan [facility] Procedures Code Procedure Name Date Entry Date Standard Description CPT-98559 Addl Vx - Ix admin via ID IM or jet injects without counseling by physician 14:37:19 CDT CPT-23660 Meningococcal B, recombinant vaccine 14:37:19 CDT 03/05 CPT-97642 First Vx - Ix admin via ID IM or jet injects without counseling by physician 14:37:19 CDT CPT-41674 Menveo Intramuscular Solution Reconstituted 14:37:19 CDT CPT-80184 Meningococcal Conjugate Vacine (Menactra) 11:20:04 CDT CPT-00764 Throat Culture - LAB USE ONLY 12:15:45 DOLL WIG HACKLER CPT-79152 Shani Flu A/B - LAB USE ONLY 12:15:45 DOLL WIG HACKLER CPT-29359 Rapid Strep (Reflex throat) - LAB USE ONLY 12:15:45 DOLL WIG HACKLER CPT-04453 Rapid Strep (Grp A) - LAB USE ONLY 13:06:06 CDT CPT-21041 Abd compl w upright 12:34:39 CDT CPT-52631 Immunization Single Admin 11:38:41 CDT CPT-06930 Fluzone Quadrivalent Intramuscular Suspension 0.5 ML 11: 38:41 CDT CPT-OV Office Visit 14:45:12 DOLL WIG HACKLER CPT-37956 [employer] inc all organs plus proximal aorta and distal IVC 2012 12:13:02 DOLL WIG HACKLER CPT-40429 Abd compl w upright 15:12:58 DOLL WIG HACKLER CPT-06074 Venipuncture Draw Fee 14:38:32 DOLL WIG HACKLER CPT-67470 Administration single or combination vaccine inc oral 17 :10:04 CDT CPT-73343 Gardasil 17:10:04 CDT CPT-32776 Venipuncture Draw Fee 16:07:54 DOLL WIG HACKLER CPT-18897 Administration 2+ single or combination vaccines inc oral 17:22:02 CDT CPT-72365 Administration single or combination vaccine inc oral 17 :22:02 CDT CPT-26391 Influenza split virus > age 3 17:22:02 CDT CPT-08792 Gardasil 17:22:02 CDT CPT-84460 Administration 2+ single or combination vaccines inc oral 14:38:31 CDT CPT-31892 Administration single or combination vaccine inc oral 14 :38:31 CDT CPT-50536 Meningococcal Conjugate Vacine (Menactra) 14:38:31 CDT CPT-85969 Gardasil 14:38:31 CDT
[2018-02-15] MEDS ORDERED: LACTATED RINGERS 1,000 ML IV PRN (06:41)
--- OUTSIDE RECORDS SUMMARY | 2018-02-15 06:41 | XMS REPORT | Clinical Summary ---
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 PRODUCER Unspecified sinusitis (chronic) Eustachian tube dysfunction, right [...] Status Provider Patient Instruction GUAIFENESIN 600 MG [id number] 1 twice a day as needed for congestion GUAIFENESIN 70740016172 Active Jillina Frazell [employer]ORNING NEWS PRODUCER Active FLUTICASONE PROPIONATE 50 MCG/ACT SUSP 1 to 2 sprays each nostril daily 03/20 FLUTICASONE PROPIONATE 39217933555 Active Jillina Frazell [employer]ORNING NEWS PRODUCER Active CEFDINIR 300 MG CAPS by mouth twice a day CEFDINIR 10418803851 No Longer Active Jillina Frazell [employer]ORNING NEWS PRODUCER Active PREDNISONE 20 MG TAB 1 tablet twice daily for 2 days, then 1 tablet once daily for 2 days PREDNISONE 29705224408 No Longer Active Jillina Frazell [employer]ORNING NEWS PRODUCER Active PREDNISONE 20 MG TAB 2 tabs daily for 3 days, 1 tab daily for 3 days, 1/2 tab daily for 2 days PREDNISONE 04111170851 No Longer Active Margarito Kelley MD Active IRVING-D ALLERGY & CONGESTION [id number] 1 po bid FEXOFENADINE-PSEUDOEPHEDRINE [id number] 55378163264 No Longer Active Margarito Kelley MD Active PREDNISONE 20 MG TAB 2 tabs daily for 3 days, 1 tab daily for 3 days, 1/2 tab daily for 2 days PREDNISONE 65504983428 No Longer Active Jillina Frazell [employer]ORNING NEWS PRODUCER Active CEFDINIR 300 MG CAPS 1 cap by mouth twice a day CEFDINIR 30715790963 No Longer Active Jillina Frazell [employer]ORNING NEWS PRODUCER Active E-Z SPACER ERIBERTO use with proair inhalier every 4 times as need. SPACER/AERO-HOLDING CHAMBERS 04918181908 No Longer Active Jillina Frazell MORNING NEWS PRODUCER Active PROAIR HFA 108 (90 BASE) MCG/ACT AERS 2 puffs every 4 hours as needed 2014 ALBUTEROL SULFATE 82245445903 No Longer Active Jillina Frazell [employer]ORNING NEWS PRODUCER Active CEFTIN 500 MG TAB 1 tablet by mouth twice daily for ten days. CEFUROXIME AXETIL 47431488122 No Longer Active Jillina Frazell [employer]ORNING NEWS PRODUCER Active PREDNISONE 20 MG TAB 2 tabs daily for 3 days, 1 tab daily for 3 days, 1/2 tab daily for 2 days PREDNISONE 35806481817 No Longer Active Margarito Kelley MD Active CEPHALEXIN 500 MG CAPS 1 tablet by mouth three times daily for ten days 06/25 CEPHALEXIN 85754546559 No Longer Active Renée Adames ALEX Active MEDROL (MARY) 4 MG TABS 6 pills on day 1, 5 pills on day 2, 4 pills on day 3, 4 pills on day 4, 2 pills on day 5, 1 pill on day 6 METHYLPREDNISOLONE 85303278927 No Longer Active Annita Mejia MD PhD Active ZITHROMAX Z-MARY 250 MG TABS 2 today and then 1 daily for 4 days AZITHROMYCIN 82663107895 No Longer Active Annita Mejia MD PhD Active GUAIFENESIN-CODEINE 100-10 MG/5ML SYRP 5ml every 4 to 6 hours as needed for cough GUAIFENESIN-CODEINE 70862035276 No Longer Active Annita Mejia MD PhD Active FLONASE 50 MCG/ACT SUSP 1 spray each nostril am and hs FLUTICASONE PROPIONATE 79291579232 No Longer Active Kendell Coronado MD Active MELOXICAM 15 MG TABS 1 po q day for pain with food MELOXICAM 14704705903 No Longer Active Kendell Coronado MD Active HYDROCODONE-ACETAMINOPHEN 5-325 MG TABS 1-2 q 4-6 hrs prn pain 20 tabs 07/04 HYDROCODONE-ACETAMINOPHEN 17923035891 No Longer Active Daniele Mcfadden DO Active PREDNISONE 20 MG TAB 1 tablet twice daily for 2 days, then 1 tablet once daily for 2 days PREDNISONE 77674065645 No Longer Active Daniele Mcfadden DO Active PREDNISONE 20 MG TAB 1 po bid 2 days, then daily for 2 days 12/27 PREDNISONE 91634646749 No Longer Active Alexander LOPEZ Active AZITHROMYCIN 250 MG TABS 2 po qd x 1 day, then 1 po qd x 4 days AZITHROMYCIN 24871543185 No Longer Active Daniele Mcfadden DO Active MUCINEX MAXIMUM STRENGTH [id number] 1 po qd GUAIFENESIN XR12H- TAB 41072798926 No Longer Active Daniele Mcfadden DO Active AZITHROMYCIN 250 MG TABS 2 po qd x 1 day, then 1 po qd x 4 days AZITHROMYCIN 43513982833 No Longer Active Margarito Kelley MD Active MUCINEX MAXIMUM STRENGTH [id number] 1 po qd MUCINEX MAXIMUM STRENGTH [id number]-HAL GUAIFENESIN [id number]-PGQ Inactive PREDNISONE 20 MG TAB 1 po bid 2 days, then daily for 2 days 12/27 PREDNISONE 20 MG TAB 449204 PREDNISONE Inactive PREDNISONE 20 MG TAB 1 tablet twice daily for 2 days, then 1 tablet once daily for 2 days PREDNISONE 20 MG TAB 619601 PREDNISONE Inactive HYDROCODONE-ACETAMINOPHEN 5-325 MG TABS 1-2 q 4-6 hrs prn pain 20 tabs 07/04 HYDROCODONE-ACETAMINOPHEN 5-325 MG TABS 039252 HYDROCODONE- ACETAMINOPHEN Inactive MELOXICAM 15 MG TABS 1 po q day for pain with food MELOXICAM 15 MG TABS 567586 MELOXICAM Inactive FLONASE 50 MCG/ACT SUSP 1 spray each nostril am and hs FLONASE 50 MCG/ACT SUSP FLUTICASONE PROPIONATE Inactive GUAIFENESIN-CODEINE 100-10 MG/5ML SYRP 5ml every 4 to 6 hours as needed for cough GUAIFENESIN-CODEINE 100-10 MG/5ML SYRP 895629 GUAIFENESIN-CODEINE Inactive ZITHROMAX Z-MARY 250 MG TABS 2 today and then 1 daily for 4 days ZITHROMAX Z-MARY 250 MG TABS 0308426 AZITHROMYCIN Inactive CEFTIN 500 MG TAB 1 tablet by mouth twice daily for ten days. CEFTIN 500 MG TAB 965277 CEFUROXIME AXETIL Inactive PROAIR HFA 108 (90 BASE) MCG/ACT AERS 2 puffs every 4 hours as needed 2014 PROAIR HFA 108 (90 BASE) MCG/ACT AERS ALBUTEROL SULFATE Inactive E-Z SPACER ERIBERTO use with proair inhalier every 4 times as need. E-Z SPACER ERIBERTO SPACER/AERO-HOLDING CHAMBERS Inactive IRVING-D ALLERGY & CONGESTION [id number] 1 po bid IRVING-D ALLERGY & CONGESTION [id number] FEXOFENADINE-PSEUDOEPHEDRINE XR12H- TAB Inactive PREDNISONE 20 MG TAB 1 tablet twice daily for 2 days, then 1 tablet once daily for 2 days PREDNISONE 20 MG TAB 888418 PREDNISONE Inactive AZITHROMYCIN 250 MG TABS 2 po qd x 1 day, then 1 po qd x 4 days AZITHROMYCIN 250 MG TABS 9642238 AZITHROMYCIN Inactive AZITHROMYCIN 250 MG TABS 2 po qd x 1 day, then 1 po qd x 4 days AZITHROMYCIN 250 MG TABS 3369289 AZITHROMYCIN Inactive MEDROL (MARY) 4 MG TABS 6 pills on day 1, 5 pills on day 2, 4 pills on day 3, 4 pills on day 4, 2 pills on day 5, 1 pill on day 6 MEDROL (MARY) 4 MG TABS 185523 METHYLPREDNISOLONE Inactive CEPHALEXIN 500 MG CAPS 1 tablet by mouth three times daily for ten days 06/25 CEPHALEXIN 500 MG CAPS 156412 CEPHALEXIN Inactive PREDNISONE 20 MG TAB 2 tabs daily for 3 days, 1 tab daily for 3 days, 1/2 tab daily for 2 days PREDNISONE 20 MG TAB 002506 PREDNISONE Inactive CEFDINIR 300 MG CAPS 1 cap by mouth twice a day CEFDINIR 300 MG CAPS 406905 CEFDINIR Inactive PREDNISONE 20 MG TAB 2 tabs daily for 3 days, 1 tab daily for 3 days, 1/2 tab daily for 2 days PREDNISONE 20 MG TAB 778593 PREDNISONE Inactive PREDNISONE 20 MG TAB 2 tabs daily for 3 days, 1 tab daily for 3 days, 1/2 tab daily for 2 days PREDNISONE 20 MG TAB 060473 PREDNISONE Inactive CEFDINIR 300 MG CAPS by mouth twice a day CEFDINIR 300 MG CAPS 890243 CEFDINIR Inactive Immunizations Vaccine Administration Date Value Standard Description Human Papillomavirus vaccine (Gardasil) #2, (HPV #2) Gardasil [ CVX62] human papilloma virus vaccine, quadrivalent Seasonal influenza vaccine, injectable, containing preservative, for > 3 years old (Afluria, FluLaval, Fluzone, Fluvirin, Fluarix, Agriflu(>=18 yo)) Fluzone (>3 yrs.) [[id number]] Influenza, seasonal, injectable Human Papillomavirus Vaccine (Gardasil) #1 Given (HPV #1) Gardasil [CVX62] human papilloma virus vaccine, quadrivalent hepatitis A immunization #2 Havrix-Pedi hepatitis A vaccine, unspecified formulation Boostrix (Tetanus toxoid, reduced diphtheria toxoid and acellular pertussis vaccine, adsorbed), booster Boostrix [CFZ454] tetanus toxoid, reduced diphtheria toxoid, and acellular [...] Negative Encounters Code Encounter Date Provider Facility CPT-71237 Level 3 Est. Patient 15:45:46 CDT Griselda Horvath [facility] CPT-25294 Level 3 Est. Patient 14:15:52 CDT Daniele Mcfadden [facility] CPT-47354 Level 3 Est. Patient 13:57:19 BEVERAGE MANAGER Margarito Kelley MD [facility] CPT-31842 Level 3 Est. Patient 09:16:05 BEVERAGE MANAGER Margarito Kelley MD [facility] CPT-61607 Level 3 Est. Patient 15:37:06 BEVERAGE MANAGER Daniele Mcfadden [facility] CPT-69751 Level 3 Est. Patient 11:56:34 BEVERAGE MANAGER Renée Adames [facility] CPT-73034 Level 3 Est. Patient 12:19:42 CDT Daniele Mcfadden [facility] CPT-18254 Level 3 Est. Patient 11:08:45 CDT Annita Mejia MD PhD [facility] CPT-48902 Level 3 Est. Patient 12:00:17 CDT Kendell Coronado MD [facility] CPT-09526 Level 3 Est. Patient 12:27:25 CDT Daniele Mcfadden [facility] CPT-90599 Level 3 Est. Patient 18:45:11 BEVERAGE MANAGER Daniele Mcfadden [facility] CPT-88533 Level 3 Est. Patient 10:12:24 BEVERAGE MANAGER Daniele Mcfadden [facility] CPT-44264 Level 3 Est. Patient 14:35:11 BEVERAGE MANAGER Daniele Mcfadden [facility] CPT-87346 Level 3 Est. Patient 14:11:04 CDT Daniele Mcfadden [facility] CPT-27178 Level 3 Est. Patient 10:52:13 CDT Alexander LOPEZ [facility] CPT-50332 Level 3 Est. Patient 11:01:08 BEVERAGE MANAGER Daniele Mcfadden [facility] CPT-85067 Level 3 Est. Patient 10:55:35 CDT Daniele Mcfadden [facility] CPT-05268 Level 3 Est. Patient 14:03:08 CDT Daniele Mcfadden [facility] CPT-91075 Level 3 Est. Patient 11:26:19 CDT Margarito Kelley MD [facility] CPT-72689 Level 2 Est. Patient 15:32:04 BEVERAGE MANAGER Daniele Mcfadden [facility] CPT-64476 Level 3 Est. Patient 16:01:26 BEVERAGE MANAGER Daniele Mcfadden [facility] CPT-05260 Level 3 Est. Patient 06:37:10 BEVERAGE MANAGER Daniele Salter [facility] Procedures Code Procedure Name Date Entry Date Standard Description CPT-38666 Rapid Strep (Grp A) - LAB USE ONLY 13:06:06 CDT CPT-74244 Abd compl w upright 12:34:39 CDT CPT-19004 Immunization Single Admin 11:38:41 CDT CPT-67923 Fluzone Quadrivalent Intramuscular Suspension 0.5 ML 11: 38:41 CDT CPT-OV Office Visit 14:45:12 BEVERAGE MANAGER CPT-21466 [employer] all organs plus proximal aorta and distal IVC 2012 12:13:02 BEVERAGE MANAGER CPT-95266 Abd compl w upright 15:12:58 BEVERAGE MANAGER CPT-58800 Venipuncture Draw Fee 14:38:32 BEVERAGE MANAGER CPT-86715 Administration single or combination vaccine inc oral 17 :10:04 CDT CPT-81059 Gardasil 17:10:04 CDT CPT-72748 Venipuncture Draw Fee 16:07:54 BEVERAGE MANAGER CPT-30670 Administration 2+ single or combination vaccines inc oral 17:22:02 CDT CPT-81496 Administration single or combination vaccine inc oral 17 :22:02 CDT CPT-74615 Influenza split virus > age 3 17:22:02 CDT CPT-67519 Gardasil 17:22:02 CDT CPT-29970 Administration 2+ single or combination vaccines inc oral 14:38:31 CDT CPT-78426 Administration single or combination vaccine inc oral 14 :38:31 CDT CPT-65029 Meningococcal Conjugate Vacine (Menactra) 14:38:31 CDT CPT-36898 Gardasil 14:38:31 CDT
--- OUTSIDE RECORDS SUMMARY | 2018-02-15 06:42 | XMS REPORT | Clinical Summary ---
Author Author Admin, [employer] Organization [employer] Address Unknown Phone Unavailable Allergies, Adverse Reactions, [...] unspecified site Sinusitis 473.9 Active Griselda Horvath [employer] Unspecified sinusitis (chronic) Eustachian tube dysfunction, right 381.81 Active Margarito Kelley MD Dysfunction of Eustachian tube Pharyngitis-Acute 462 Active Daniele Mcfadden DO Acute pharyngitis URI 465.9 Active Griselda Horvath [employer] Acute upper respiratory infections of unspecified site Allergic rhinitis 477.9 Active Jessika Nunes [employer] Allergic rhinitis, cause unspecified Acute rhinosinusitis 461.9 Active Jessika Nunes [employer] Acute sinusitis, unspecified Fever 780.60 Active Griselda [...] MD Flank pain, right ICD-789.09 Inactive Margarito Kleley MD Pharyngitis, acute ICD-462 Inactive Margarito Kelley MD Knee pain, left ICD-719.46 Inactive Margarito Kelley MD Medication List Medication Instructions Start Date Stop Date Generic Name NDC Status Provider Patient Instruction PREDNISONE 20 MG TAB 2 tabs daily for 3 days, 1 tab daily for 3 days, 1/2 tab daily for 2 days start tomorrow 07/31/16 PREDNISONE [id number] No Longer Active Jillina Frazell [employer] Active AZITHROMYCIN 250 MG TABS 2 po qd x 1 day, then 1 po qd x 4 days AZITHROMYCIN 26115090075 No Longer Active Jillina Frazell [employer] Active MUCINEX D 60-600 MG [id number] 1 po BID PRN Congestion PSEUDOEPHEDRINE-GUAIFENESIN 88320362256 No Longer Active Jessika [place] [employer]ACH [employer] Active CEFDINIR 300 MG CAPS 1 po BID x 10 days CEFDINIR 24016471797 No Longer Active Jillina Frazell [employer] Active PREDNISONE 20 MG TAB 2 tabs daily for 3 days, 1 tab daily for 3 days, 1/2 tab daily for 2 days PREDNISONE 26202616615 No Longer Active Jillina Frazell [employer] Active FLUTICASONE PROPIONATE 50 MCG/ACT SUSP 1 to 2 sprays each nostril daily 03/20 FLUTICASONE PROPIONATE 61645872540 No Longer Active Jillina Frazell [employer] Active GUAIFENESIN 600 MG [id number] 1 twice a day as needed for congestion GUAIFENESIN 50911422879 No Longer Active Jillina Frazell [employer]ACH [employer] Active CEFDINIR 300 MG CAPS by mouth twice a day CEFDINIR 55558148907 No Longer Active Jillina Frazell [employer] Active PREDNISONE 20 MG TAB 1 tablet twice daily for 2 days, then 1 tablet once daily for 2 days PREDNISONE 19427778074 No Longer Active Jillina Frazell [employer] Active PREDNISONE 20 MG TAB 2 tabs daily for 3 days, 1 tab daily for 3 days, 1/2 tab daily for 2 days PREDNISONE 64009573170 No Longer Active Margarito Kelley MD Active IRVING-D ALLERGY & CONGESTION [id number] 1 po bid FEXOFENADINE-PSEUDOEPHEDRINE [id number] 85760724331 No Longer Active Margarito Kelley MD Active PREDNISONE 20 MG TAB 2 tabs daily for 3 days, 1 tab daily for 3 days, 1/2 tab daily for 2 days PREDNISONE 16440613506 No Longer Active Jillina Frazell [employer] Active CEFDINIR 300 MG CAPS 1 cap by mouth twice a day CEFDINIR 13917862117 No Longer Active Jillina Frazell [employer] Active E-Z SPACER ERIBERTO use with proair inhalier every 4 times as need. SPACER/AERO-HOLDING CHAMBERS 51466283893 No Longer Active Jillina Frazell [employer] Active PROAIR HFA 108 (90 BASE) MCG/ACT AERS 2 puffs every 4 hours as needed 2014 ALBUTEROL SULFATE 94708032635 No Longer Active Jillina Frazell [employer] Active CEFTIN 500 MG TAB 1 tablet by mouth twice daily for ten days. CEFUROXIME AXETIL 51576785493 No Longer Active Jillina Frazell [employer] Active PREDNISONE 20 MG TAB 2 tabs daily for 3 days, 1 tab daily for 3 days, 1/2 tab daily for 2 days PREDNISONE 05563765239 No Longer Active Margarito Kelley MD Active CEPHALEXIN 500 MG CAPS 1 tablet by mouth three times daily for ten days 06/25 CEPHALEXIN 87198527513 No Longer Active Renée Adames APRN Active MEDROL (MARY) 4 MG TABS 6 pills on day 1, 5 pills on day 2, 4 pills on day 3, 4 pills on day 4, 2 pills on day 5, 1 pill on day 6 METHYLPREDNISOLONE 39627786599 No Longer Active Annita Mejia MD PhD Active ZITHROMAX Z-MARY 250 MG TABS 2 today and then 1 daily for 4 days AZITHROMYCIN 85674645576 No Longer Active Annita Mejia MD PhD Active GUAIFENESIN-CODEINE 100-10 MG/5ML SYRP 5ml every 4 to 6 hours as needed for cough GUAIFENESIN-CODEINE 13859604699 No Longer Active Annita Mejia MD PhD Active FLONASE 50 MCG/ACT SUSP 1 spray each nostril am and hs FLUTICASONE PROPIONATE 31306270378 No Longer Active Kendell Coronado MD Active MELOXICAM 15 MG TABS 1 po q day for pain with food MELOXICAM 49393735634 No Longer Active Kendell Coronado MD Active HYDROCODONE-ACETAMINOPHEN 5-325 MG TABS 1-2 q 4-6 hrs prn pain 20 tabs 07/04 HYDROCODONE-ACETAMINOPHEN 41280210956 No Longer Active Daniele Mcfadden DO Active PREDNISONE 20 MG TAB 1 tablet twice daily for 2 days, then 1 tablet once daily for 2 days PREDNISONE 56032183197 No Longer Active Daniele Mcfadden DO Active PREDNISONE 20 MG TAB 1 po bid 2 days, then daily for 2 days 12/27 PREDNISONE 26559893366 No Longer Active Alexander LOPEZ Active AZITHROMYCIN 250 MG TABS 2 po qd x 1 day, then 1 po qd x 4 days AZITHROMYCIN 58877481249 No Longer Active Daniele Mcfadden DO Active MUCINEX MAXIMUM STRENGTH [id number] 1 po qd GUAIFENESIN XR12H- TAB 49514228443 No Longer Active Daniele Mcfadden DO Active AZITHROMYCIN 250 MG TABS 2 po qd x 1 day, then 1 po qd x 4 days AZITHROMYCIN 77111384632 No Longer Active Margarito Kelley MD Active MUCINEX MAXIMUM STRENGTH [id number] 1 po qd MUCINEX MAXIMUM STRENGTH [id number] GUAIFENESIN QD14O-RLG Inactive PREDNISONE 20 MG TAB 1 po bid 2 days, then daily for 2 days 12/27 PREDNISONE 20 MG TAB 135339 PREDNISONE Inactive PREDNISONE 20 MG TAB 1 tablet twice daily for 2 days, then 1 tablet once daily for 2 days PREDNISONE 20 MG TAB 983793 PREDNISONE Inactive HYDROCODONE-ACETAMINOPHEN 5-325 MG TABS 1-2 q 4-6 hrs prn pain 20 tabs 07/04 HYDROCODONE-ACETAMINOPHEN 5-325 MG TABS 606595 HYDROCODONE- ACETAMINOPHEN Inactive MELOXICAM 15 MG TABS 1 po q day for pain with food MELOXICAM 15 MG TABS 722640 MELOXICAM Inactive FLONASE 50 MCG/ACT SUSP 1 spray each nostril am and hs FLONASE 50 MCG/ACT SUSP 9113173 FLUTICASONE PROPIONATE Inactive GUAIFENESIN-CODEINE 100-10 MG/5ML SYRP 5ml every 4 to 6 hours as needed for cough GUAIFENESIN-CODEINE 100-10 MG/5ML SYRP 464250 GUAIFENESIN-CODEINE Inactive ZITHROMAX Z-MARY 250 MG TABS 2 today and then 1 daily for 4 days ZITHROMAX Z-MARY 250 MG TABS 9203690 AZITHROMYCIN Inactive CEFTIN 500 MG TAB 1 tablet by mouth twice daily for ten days. CEFTIN 500 MG TAB 991959 CEFUROXIME AXETIL Inactive PROAIR HFA 108 (90 BASE) MCG/ACT AERS 2 puffs every 4 hours as needed 2014 PROAIR HFA 108 (90 BASE) MCG/ACT AERS ALBUTEROL SULFATE Inactive E-Z SPACER ERIBERTO use with proair inhalier every 4 times as need. E-Z SPACER ERIBERTO SPACER/AERO-HOLDING CHAMBERS Inactive IRVING-D ALLERGY & CONGESTION [id number] 1 po bid IRVING-D ALLERGY & CONGESTION [id number] FEXOFENADINE-PSEUDOEPHEDRINE XR12H- TAB Inactive PREDNISONE 20 MG TAB 1 tablet twice daily for 2 days, then 1 tablet once daily for 2 days PREDNISONE 20 MG TAB 845989 PREDNISONE Inactive GUAIFENESIN 600 MG [id number]-YID 1 twice a day as needed for congestion GUAIFENESIN 600 MG OE63O-REL GUAIFENESIN Inactive FLUTICASONE PROPIONATE 50 MCG/ACT SUSP 1 to 2 sprays each nostril daily 03/20 FLUTICASONE PROPIONATE 50 MCG/ACT SUSP 8621767 FLUTICASONE PROPIONATE Inactive MUCINEX D 60-600 MG [id number] 1 po BID PRN Congestion MUCINEX D 60-600 MG [id number] PSEUDOEPHEDRINE-GUAIFENESIN Inactive AZITHROMYCIN 250 MG TABS 2 po qd x 1 day, then 1 po qd x 4 days AZITHROMYCIN 250 MG TABS 5445870 AZITHROMYCIN Inactive AZITHROMYCIN 250 MG TABS 2 po qd x 1 day, then 1 po qd x 4 days AZITHROMYCIN 250 MG TABS 0517568 AZITHROMYCIN Inactive MEDROL (MARY) 4 MG TABS 6 pills on day 1, 5 pills on day 2, 4 pills on day 3, 4 pills on day 4, 2 pills on day 5, 1 pill on day 6 MEDROL (MARY) 4 MG TABS 521045 METHYLPREDNISOLONE Inactive CEPHALEXIN 500 MG CAPS 1 tablet by mouth three times daily for ten days 06/25 CEPHALEXIN 500 MG CAPS 065232 CEPHALEXIN Inactive PREDNISONE 20 MG TAB 2 tabs daily for 3 days, 1 tab daily for 3 days, 1/2 tab daily for 2 days PREDNISONE 20 MG TAB 516056 PREDNISONE Inactive CEFDINIR 300 MG CAPS 1 cap by mouth twice a day CEFDINIR 300 MG CAPS 044925 CEFDINIR Inactive PREDNISONE 20 MG TAB 2 tabs daily for 3 days, 1 tab daily for 3 days, 1/2 tab daily for 2 days PREDNISONE 20 MG TAB 957304 PREDNISONE Inactive PREDNISONE 20 MG TAB 2 tabs daily for 3 days, 1 tab daily for 3 days, 1/2 tab daily for 2 days PREDNISONE 20 MG TAB 505741 PREDNISONE Inactive CEFDINIR 300 MG CAPS by mouth twice a day CEFDINIR 300 MG CAPS 210213 CEFDINIR Inactive PREDNISONE 20 MG TAB 2 tabs daily for 3 days, 1 tab daily for 3 days, 1/2 tab daily for 2 days PREDNISONE 20 MG TAB 721786 PREDNISONE Inactive CEFDINIR 300 MG CAPS 1 po BID x 10 days CEFDINIR 300 MG CAPS 20021026 CEFDINIR Inactive AZITHROMYCIN 250 MG TABS 2 po qd x 1 day, then 1 po qd x 4 days AZITHROMYCIN 250 MG TABS 7318359 AZITHROMYCIN Inactive PREDNISONE 20 MG TAB 2 tabs daily for 3 days, 1 tab daily for 3 days, 1/2 tab daily for 2 days start tomorrow 07/31/16 PREDNISONE 20 MG TAB 291244 PREDNISONE Inactive Immunizations Vaccine Administration Date Value Standard Description Human Papillomavirus vaccine (Gardasil) #2, (HPV #2) Gardasil [ CVX62] human papilloma virus vaccine, quadrivalent Seasonal influenza vaccine, injectable, containing preservative, for > 3 years old (Afluria, FluLaval, Fluzone, Fluvirin, Fluarix, Agriflu(>=18 yo)) Fluzone (>3 yrs.) [[id number]] Influenza, seasonal, injectable Human Papillomavirus Vaccine (Gardasil) #1 Given (HPV #1) Gardasil [CVX62] human papilloma virus vaccine, quadrivalent hepatitis A immunization #2 Havrix-Pedi hepatitis A vaccine, unspecified formulation Boostrix (Tetanus toxoid, reduced diphtheria toxoid and acellular pertussis vaccine, adsorbed), booster Boostrix [SHC753] tetanus toxoid, reduced diphtheria toxoid, and acellular [...] Negative;Positive Encounters Code Encounter Date Provider Facility CPT-44438 Level 3 Est. Patient 10:49:47 COMPOSING ROOM MACHINIST Griselda Horvath [facility] CPT-60450 Level 3 Est. Patient 08:43:59 COMPOSING ROOM MACHINIST Jessika Nunes [facility] CPT-35152 Level 3 Est. Patient 09:05:19 COMPOSING ROOM MACHINIST Griselda Horvath [facility] CPT-28488 Level 3 Est. Patient 15:45:46 CDT Griselda Horvath [facility] CPT-63787 Level 3 Est. Patient 14:15:52 CDT Daniele Mcfadden [facility] CPT-75635 Level 3 Est. Patient 13:57:19 COMPOSING ROOM MACHINIST Margarito Kelley MD [facility] CPT-90235 Level 3 Est. Patient 09:16:05 COMPOSING ROOM MACHINIST Margarito Kelley MD [facility] CPT-94871 Level 3 Est. Patient 15:37:06 COMPOSING ROOM MACHINIST Daniele Mcfadden [facility] CPT-75471 Level 3 Est. Patient 11:56:34 COMPOSING ROOM MACHINIST Renée Adames [facility] CPT-21608 Level 3 Est. Patient 12:19:42 CDT Daniele Mcfadden [facility] CPT-41139 Level 3 Est. Patient 11:08:45 CDT Annita Mejia MD PhD [facility] CPT-77812 Level 3 Est. Patient 12:00:17 CDT Kendell Coronado MD [facility] CPT-01161 Level 3 Est. Patient 12:27:25 CDT Daniele Mcfadden [facility] CPT-50372 Level 3 Est. Patient 18:45:11 COMPOSING ROOM MACHINIST Daniele Mcfadden [facility] CPT-24661 Level 3 Est. Patient 10:12:24 COMPOSING ROOM MACHINIST Daniele Mcfadden [facility] CPT-25519 Level 3 Est. Patient 14:35:11 COMPOSING ROOM MACHINIST Daniele Mcfadden [facility] CPT-44467 Level 3 Est. Patient 14:11:04 CDT Daniele Mcfadden [facility] CPT-14484 Level 3 Est. Patient 10:52:13 CDT Alexander LOPEZ [facility] CPT-18942 Level 3 Est. Patient 11:01:08 COMPOSING ROOM MACHINIST Daniele Gaetano Bogdan [facility] CPT-20398 Level 3 Est. Patient 10:55:35 CDT Daniele Mcfadden [facility] CPT-02070 Level 3 Est. Patient 14:03:08 CDT Daniele Mcfadden [facility] CPT-27283 Level 3 Est. Patient 11:26:19 CDT Margarito Kelley MD [facility] CPT-47694 Level 2 Est. Patient 15:32:04 COMPOSING ROOM MACHINIST Daniele Mcfadden [facility] CPT-12812 Level 3 Est. Patient 16:01:26 COMPOSING ROOM MACHINIST Daniele Mcfadden [facility] CPT-19628 Level 3 Est. Patient 06:37:10 COMPOSING ROOM MACHINIST Daniele Salter [facility] Procedures Code Procedure Name Date Entry Date Standard Description CPT-05779 Addl Vx - Ix admin via ID IM or jet injects without counseling by physician 14:37:19 CDT CPT-32497 Meningococcal B, recombinant vaccine 14:37:19 CDT 03/05 CPT-09282 First Vx - Ix admin via ID IM or jet injects without counseling by physician 14:37:19 CDT CPT-37237 Menveo Intramuscular Solution Reconstituted 14:37:19 CDT CPT-19006 Meningococcal Conjugate Vacine (Menactra) 11:20:04 CDT CPT-76396 Throat Culture - LAB USE ONLY 12:15:45 COMPOSING ROOM MACHINIST CPT-75007 Shani Flu A/B - LAB USE ONLY 12:15:45 COMPOSING ROOM MACHINIST CPT-98333 Rapid Strep (Reflex throat) - LAB USE ONLY 12:15:45 COMPOSING ROOM MACHINIST CPT-45605 Rapid Strep (Grp A) - LAB USE ONLY 13:06:06 CDT CPT-49865 Abd compl w upright 12:34:39 CDT CPT-08448 Immunization Single Admin 11:38:41 CDT CPT-59897 Fluzone Quadrivalent Intramuscular Suspension 0.5 ML 11: 38:41 CDT CPT-OV Office Visit 14:45:12 COMPOSING ROOM MACHINIST CPT-57514 Sono abd com inc all organs plus proximal aorta and distal IVC 2012 12:13:02 COMPOSING ROOM MACHINIST CPT-50402 Abd compl w upright 15:12:58 COMPOSING ROOM MACHINIST CPT-66211 Venipuncture Draw Fee 14:38:32 COMPOSING ROOM MACHINIST CPT-18306 Administration single or combination vaccine inc oral 17 :10:04 CDT CPT-57272 Gardasil 17:10:04 CDT CPT-34641 Venipuncture Draw Fee 16:07:54 COMPOSING ROOM MACHINIST CPT-61240 Administration 2+ single or combination vaccines inc oral 17:22:02 CDT CPT-62505 Administration single or combination vaccine inc oral 17 :22:02 CDT CPT-70945 Influenza split virus > age 3 17:22:02 CDT CPT-69762 Gardasil 17:22:02 CDT CPT-32278 Administration 2+ single or combination vaccines inc oral 14:38:31 CDT CPT-59717 Administration single or combination vaccine inc oral 14 :38:31 CDT CPT-75274 Meningococcal Conjugate Vacine (Menactra) 14:38:31 CDT [facility]-25215 Gardasil 14:38:31 CDT
--- OUTSIDE RECORDS SUMMARY | 2018-02-15 06:42 | XMS REPORT | Clinical Summary ---
Author Author Admin, [facility] Organization [facility] Address Unknown Phone Unavailable Allergies, Adverse [...] Pack MD ATHLETIC PHYSICAL, NORMAL ICD-V70.3 Inactive Errlo Pack MD MUSCLE RUPTURE, NONTRAUMATIC ICD-728.83 Inactive Errol Pack MD Abdominal pain ICD-789.00 Inactive Errol Pack MD Biliary dyskinesia ICD-575.8 Inactive Katie Gipson TIMBER WATCHMAN U R I ICD-465.9 Inactive Daniele Mcfadden [...] tube dysfunction, right ICD-381.81 Inactive Katie Gipson TIMBER WATCHMAN Pharyngitis-Acute ICD-462 Inactive Katie Gipson TIMBER WATCHMAN URI ICD-465.9 Inactive Katie Gipson TIMBER WATCHMAN Allergic rhinitis ICD-477.9 Inactive Katie Gipson TIMBER WATCHMAN Acute rhinosinusitis ICD-461.9 Inactive Katie Gipson LPN [...] today, then 1 tab tomorrow 08/30 PREDNISONE [id number] No Longer Active Daniele Mcfadden DO Active FLUTICASONE PROPIONATE 50 MCG/ACT NASAL SUSPENSION 1 spray each nostril twice daily until bottle empty FLUTICASONE PROPIONATE 79419879662 Active Daniele Mcfadden DO Active PREDNISONE 10 MG ORAL TABLET 2 TABS BY MOUTH TODAY, THEN 1 TAB BY MOUTH DAYS 2 -5 PREDNISONE 62245449320 No Longer Active Daniele Mcfadden DO Active PREDNISONE 20 MG ORAL TABLET two tabs by mouth today, then one tab by mouth days two and three PREDNISONE 18080988853 No Longer Active Whitley Hernandez Active AZITHROMYCIN 250 MG ORAL TABLET 2 po qd x 1 day, then 1 po qd x 4 days 07/24 AZITHROMYCIN 34349158501 No Longer Active Daniele Mcfadden DO Active IRVING-D ALLERGY & CONGESTION 60-120 MG ORAL TABLET EXTENDED RELEASE 12 HOUR 1 tablet twice daily as needed for congestion/allergies FEXOFENADINE-PSEUDOEPHEDRINE 88179171641 Active Holly Sharma Active PREDNISONE 20 MG ORAL TABLET 2 tabs daily for 3 days, 1 tab daily for 3 days, 1/2 tab daily for 2 days start tomorrow 07/31/16 PREDNISONE 72449130189 No Longer Active Jillina Frazell HOSPICE NURSE Active AZITHROMYCIN 250 MG ORAL TABLET 2 po qd x 1 day, then 1 po qd x 4 days 08/30 AZITHROMYCIN 25590077376 No Longer Active Jillina Jiml HOSPICE NURSE Active MUCINEX D 60-600 MG ORAL TABLET EXTENDED RELEASE 12 HOUR 1 po BID PRN Congestion PSEUDOEPHEDRINE-GUAIFENESIN 69397360509 No Longer Active Jessika Nunes APRN Active CEFDINIR 300 MG ORAL CAPSULE 1 po BID x 10 days CEFDINIR 13256345581 No Longer Active Ezekielllina Alexandru HOSPICE NURSE Active PREDNISONE 20 MG ORAL TABLET 2 tabs daily for 3 days, 1 tab daily for 3 days, 1/2 tab daily for 2 days PREDNISONE 84625708874 No Longer Active Ezekielllina Jiml HOSPICE NURSE Active FLUTICASONE PROPIONATE 50 MCG/ACT NASAL SUSPENSION 1 to 2 sprays each nostril daily FLUTICASONE PROPIONATE 20891389418 No Longer Active Ezekielllina Alexandru HOSPICE NURSE Active GUAIFENESIN ER 600 MG ORAL TABLET EXTENDED RELEASE 12 HOUR 1 twice a day as needed for congestion GUAIFENESIN 07181210732 No Longer Active Ezekielllina Alexandru HOSPICE NURSE Active CEFDINIR 300 MG ORAL CAPSULE by mouth twice a day CEFDINIR 27548095747 No Longer Active Ezekielllina Alexandru ONTIVEROSN Active PREDNISONE 20 MG ORAL TABLET 1 tablet twice daily for 2 days, then 1 tablet once daily for 2 days PREDNISONE 01643069434 No Longer Active Jillina Jiml HOSPICE NURSE Active PREDNISONE 20 MG ORAL TABLET 2 tabs daily for 3 days, 1 tab daily for 3 days, 1/2 tab daily for 2 days PREDNISONE 98908838171 No Longer Active Margarito Kelley MD Active IRVING-D ALLERGY & CONGESTION TABLET EXTENDED RELEASE 12 HOUR 1 po bid 05/26 FEXOFENADINE-PSEUDOEPHEDRINE [id number] 79894243449 No Longer Active Margarito Kelley MD Active PREDNISONE 20 MG ORAL TABLET 2 tabs daily for 3 days, 1 tab daily for 3 days, 1/2 tab daily for 2 days PREDNISONE 29461015309 No Longer Active Ezekielllina Fratracey JOHNSON Active CEFDINIR 300 MG ORAL CAPSULE 1 cap by mouth twice a day CEFDINIR 97108953510 No Longer Active Jillina Frazell HOSPICE NURSE Active E-Z SPACER DEVICE use with proair inhalier every 4 times as need. SPACER/AERO-HOLDING CHAMBERS 15779014971 No Longer Active Jillina Framarkl ALEX Active PROAIR HFA 108 (90 Base) MCG/ACT INHALATION AEROSOL SOLUTION 2 puffs every 4 hours as needed ALBUTEROL SULFATE 45662845180 No Longer Active Ezekielllsd Fernandezl HOSPICE NURSE Active CEFTIN 500 MG ORAL TABLET 1 tablet by mouth twice daily for ten days. CEFUROXIME AXETIL 96567879762 No Longer Active Griselda Horvath APRN Active PREDNISONE 20 MG ORAL TABLET 2 tabs daily for 3 days, 1 tab daily for 3 days, 1/2 tab daily for 2 days PREDNISONE 51956061840 No Longer Active Margarito Kelley MD Active CEPHALEXIN 500 MG ORAL CAPSULE 1 tablet by mouth three times daily for ten days CEPHALEXIN 38603936435 No Longer Active Renée Adames APRN Active MEDROL 4 MG ORAL TABLET THERAPY PACK 6 pills on day 1, 5 pills on day 2, 4 pills on day 3, 4 pills on day 4, 2 pills on day 5, 1 pill on day 6 METHYLPREDNISOLONE 01488613116 No Longer Active Annita Mejia MD PhD Active ZITHROMAX Z-MARY 250 MG ORAL TABLET 2 today and then 1 daily for 4 days 03/11 AZITHROMYCIN 26790455267 No Longer Active Annita Mejia MD PhD Active GUAIFENESIN-CODEINE 100-10 MG/5ML ORAL SYRUP 5ml every 4 to 6 hours as needed for cough GUAIFENESIN-CODEINE 86435339886 No Longer Active Annita Mejia MD PhD Active FLONASE 50 MCG/ACT NASAL SUSPENSION 1 spray each nostril am and hs FLUTICASONE PROPIONATE 07661931044 No Longer Active Kendell Coronado MD Active MELOXICAM 15 MG ORAL TABLET 1 po q day for pain with food MELOXICAM 01342416725 No Longer Active Kendell Coronado MD Active HYDROCODONE-ACETAMINOPHEN 5-325 MG ORAL TABLET 1-2 q 4-6 hrs prn pain 20 tabs HYDROCODONE-ACETAMINOPHEN 56827481772 No Longer Active Daniele Mcfadden DO Active PREDNISONE 20 MG ORAL TABLET 1 tablet twice daily for 2 days, then 1 tablet once daily for 2 days PREDNISONE 06069972743 No Longer Active Daniele Mcfadden DO Active PREDNISONE 20 MG ORAL TABLET 1 po bid 2 days, then daily for 2 days PREDNISONE 66632874845 No Longer Active Alexander LOPEZ Active AZITHROMYCIN 250 MG ORAL TABLET 2 po qd x 1 day, then 1 po qd x 4 days 08/05 AZITHROMYCIN 44756711273 No Longer Active Daniele Mcfadden DO Active MUCINEX MAXIMUM STRENGTH TABLET EXTENDED RELEASE 12 HOUR 1 po qd GUAIFENESIN [id number] 89616002683 No Longer Active Daniele Mcfadden DO Active AZITHROMYCIN 250 MG ORAL TABLET 2 po qd x 1 day, then 1 po qd x 4 days 11/26 AZITHROMYCIN 10829401716 No Longer Active Margarito Kelley MD Active MUCINEX MAXIMUM STRENGTH TABLET EXTENDED RELEASE 12 HOUR 1 po qd MUCINEX MAXIMUM STRENGTH TABLET EXTENDED RELEASE 12 HOUR GUAIFENESIN [id number] Inactive PREDNISONE 20 MG ORAL TABLET 1 po bid 2 days, then daily for 2 days PREDNISONE 20 MG ORAL TABLET 135012 PREDNISONE Inactive PREDNISONE 20 MG ORAL TABLET 1 tablet twice daily for 2 days, then 1 tablet once daily for 2 days PREDNISONE 20 MG ORAL TABLET 696277 PREDNISONE Inactive HYDROCODONE-ACETAMINOPHEN 5-325 MG ORAL TABLET 1-2 q 4-6 hrs prn pain 20 tabs HYDROCODONE-ACETAMINOPHEN 5-325 MG ORAL TABLET 145736 HYDROCODONE-ACETAMINOPHEN Inactive MELOXICAM 15 MG ORAL TABLET 1 po q day for pain with food MELOXICAM 15 MG ORAL TABLET 076776 MELOXICAM Inactive FLONASE 50 MCG/ACT NASAL SUSPENSION 1 spray each nostril am and hs FLONASE 50 MCG/ACT NASAL SUSPENSION 6433285 FLUTICASONE PROPIONATE Inactive GUAIFENESIN-CODEINE 100-10 MG/5ML ORAL SYRUP 5ml every 4 to 6 hours as needed for cough GUAIFENESIN-CODEINE 100-10 MG/5ML ORAL SYRUP 683452 GUAIFENESIN-CODEINE Inactive ZITHROMAX Z-MARY 250 MG ORAL TABLET 2 today and then 1 daily for 4 days 03/11 ZITHROMAX Z-MARY 250 MG ORAL TABLET 514093 AZITHROMYCIN Inactive CEFTIN 500 MG ORAL TABLET [...] CONGESTION TABLET EXTENDED RELEASE 12 HOUR FEXOFENADINE-PSEUDOEPHEDRINE [id number] Inactive PREDNISONE 20 MG ORAL TABLET 1 tablet twice daily for 2 days, then 1 tablet once daily for 2 days PREDNISONE 20 MG ORAL TABLET 047992 PREDNISONE Inactive GUAIFENESIN ER 600 MG ORAL TABLET EXTENDED RELEASE 12 HOUR 1 twice a day as needed for congestion GUAIFENESIN ER 600 MG ORAL TABLET EXTENDED RELEASE 12 HOUR GUAIFENESIN Inactive FLUTICASONE PROPIONATE 50 MCG/ACT NASAL SUSPENSION 1 to 2 sprays each nostril daily FLUTICASONE PROPIONATE 50 MCG/ACT NASAL SUSPENSION 5471275 FLUTICASONE PROPIONATE Inactive MUCINEX D 60-600 MG ORAL TABLET EXTENDED RELEASE 12 HOUR 1 po BID PRN Congestion MUCINEX D 60-600 MG ORAL TABLET EXTENDED RELEASE 12 HOUR PSEUDOEPHEDRINE-GUAIFENESIN Inactive PREDNISONE 20 MG ORAL TABLET two tabs by mouth today, then one tab by mouth days two and three PREDNISONE 20 MG ORAL TABLET 568305 PREDNISONE Inactive PREDNISONE 10 MG ORAL TABLET 2 TABS BY MOUTH TODAY, THEN 1 TAB BY MOUTH DAYS 2 -5 PREDNISONE 10 MG ORAL TABLET 855599 PREDNISONE Inactive PREDNISONE 20 MG ORAL TABLET 2 tabs by mouth today, then 1 tab tomorrow 08/30 PREDNISONE 20 MG ORAL TABLET 384633 PREDNISONE Inactive AZITHROMYCIN 250 MG ORAL TABLET 2 po qd x 1 day, then 1 po qd x 4 days 11/26 AZITHROMYCIN 250 MG ORAL TABLET 286418 AZITHROMYCIN Inactive AZITHROMYCIN 250 MG ORAL TABLET 2 po qd x 1 day, then 1 po qd x 4 days 08/05 AZITHROMYCIN 250 MG ORAL TABLET 556721 AZITHROMYCIN Inactive MEDROL 4 MG ORAL TABLET THERAPY PACK 6 pills on day 1, 5 pills on day 2, 4 pills on day 3, 4 pills on day 4, 2 pills on day 5, 1 pill on day 6 MEDROL 4 MG ORAL TABLET THERAPY PACK 978982 METHYLPREDNISOLONE Inactive CEPHALEXIN 500 MG ORAL CAPSULE 1 tablet by mouth three times daily for ten days CEPHALEXIN 500 MG ORAL CAPSULE 738658 CEPHALEXIN Inactive PREDNISONE 20 MG ORAL TABLET 2 tabs daily for 3 days, 1 tab daily for 3 days, 1/2 tab daily for 2 days PREDNISONE 20 MG ORAL TABLET 485253 PREDNISONE Inactive CEFDINIR 300 MG ORAL CAPSULE 1 cap by mouth twice a day CEFDINIR 300 MG ORAL CAPSULE 002681 CEFDINIR Inactive PREDNISONE 20 MG ORAL TABLET 2 tabs daily for 3 days, 1 tab daily for 3 days, 1/2 tab daily for 2 days PREDNISONE 20 MG ORAL TABLET 142473 PREDNISONE Inactive PREDNISONE 20 MG ORAL TABLET 2 tabs daily for 3 days, 1 tab daily for 3 days, 1/2 tab daily for 2 days PREDNISONE 20 MG ORAL TABLET 244540 PREDNISONE Inactive CEFDINIR 300 MG ORAL CAPSULE by mouth twice a day CEFDINIR 300 MG ORAL CAPSULE 289404 CEFDINIR Inactive PREDNISONE 20 MG ORAL TABLET 2 tabs daily for 3 days, 1 tab daily for 3 days, 1/2 tab daily for 2 days PREDNISONE 20 MG ORAL TABLET 348747 PREDNISONE Inactive CEFDINIR 300 MG ORAL CAPSULE 1 po BID x 10 days CEFDINIR 300 MG ORAL CAPSULE 717291 CEFDINIR Inactive AZITHROMYCIN 250 MG ORAL TABLET 2 po qd x 1 day, then 1 po qd x 4 days 08/30 AZITHROMYCIN 250 MG ORAL TABLET 007203 AZITHROMYCIN Inactive PREDNISONE 20 MG ORAL TABLET 2 tabs daily for 3 days, 1 tab daily for 3 days, 1/2 tab daily for 2 days start tomorrow 07/31/16 PREDNISONE 20 MG ORAL TABLET 755890 PREDNISONE Inactive AZITHROMYCIN 250 MG ORAL TABLET 2 po qd x 1 day, then 1 po qd x 4 days 07/24 AZITHROMYCIN 250 MG ORAL TABLET 965180 AZITHROMYCIN Inactive Immunizations Vaccine Administration Date Value Standard Description Human Papillomavirus vaccine (Gardasil) #2, (HPV #2) Gardasil [ [id number]] human papilloma virus vaccine, quadrivalent Seasonal influenza vaccine, injectable, containing preservative, for > 3 years old (Afluria, FluLaval, Fluzone, Fluvirin, Fluarix, Agriflu(>=18 yo)) Fluzone (>3 yrs.) [[id number]] Influenza, seasonal, injectable Human Papillomavirus Vaccine (Gardasil) #1 Given (HPV #1) Gardasil [CVX62] human papilloma virus vaccine, quadrivalent hepatitis A immunization #2 Havrix-Pedi hepatitis A vaccine, unspecified formulation Boostrix (Tetanus toxoid, reduced diphtheria toxoid and acellular pertussis vaccine, adsorbed), booster Boostrix [[id number]] tetanus toxoid, reduced diphtheria toxoid, and acellular [...] Negative Encounters Code Encounter Date Provider Facility CPT-22902 Level 3 Est. Patient 16:00:45 CDT Daniele Mcfadden DO [facility] CPT-75579 Level 3 Est. Patient 15:57:40 CDT Daniele [facility] CPT-49413 Level 3 Est. Patient 09:35:49 [employer] PROFESSIONAL Daniele Mcfadden [facility] CPT-44278 Level 3 Est. Patient 09:35:25 [employer] PROFESSIONAL Daniele Mcfadden [facility] CPT-24686 Level 3 Est. Patient 16:03:55 [employer]AIL [employer] PROFESSIONAL Whitley Quiroz [facility] CPT-67713 Level 3 Est. Patient 17:42:49 [employer]AIL [employer] PROFESSIONAL Whitley Quiroz [facility] CPT-11639 Level 3 Est. Patient 10:49:47 [employer] PROFESSIONAL Griselda Horvath [facility] CPT-57120 Level 3 Est. Patient 08:43:59 [employer] PROFESSIONAL Jessika Nunes [facility] CPT-50159 Level 3 Est. Patient 09:05:19 [employer] PROFESSIONAL Griselda Horvath [facility] CPT-56478 Level 3 Est. Patient 15:45:46 CDT Griselda Horvath [facility] CPT-66752 Level 3 Est. Patient 14:15:52 CDT Daniele Mcfadden [facility] CPT-18464 Level 3 Est. Patient 13:57:19 [employer]ESSIONAL Margarito Kelley MD [facility] CPT-98120 Level 3 Est. Patient 09:16:05 [employer] PROFESSIONAL Margarito Kelley MD [facility] CPT-97532 Level 3 Est. Patient 15:37:06 [employer] PROFESSIONAL Daniele Mcfadden [facility] CPT-84184 Level 3 Est. Patient 11:56:34 [employer] PROFESSIONAL Renée Adames [facility] CPT-17132 Level 3 Est. Patient 12:19:42 CDT Daniele Mcfadden [facility] CPT-71816 Level 3 Est. Patient 11:08:45 CDT Annita Mejia MD, PhD [facility] CPT-87170 Level 3 Est. Patient 12:00:17 CDT Kendell Coronado MD [facility] CPT-72391 Level 3 Est. Patient 12:27:25 CDT Daniele Gaetano Bogdan [facility] CPT-21241 Level 3 Est. Patient 18:45:11 [employer] PROFESSIONAL Daniele Mcfadden [facility] CPT-64371 Level 3 Est. Patient 10:12:24 [employer] PROFESSIONAL Daniele Mcfadden [facility] CPT-09741 Level 3 Est. Patient 14:35:11 [employer] PROFESSIONAL Daniele Mcfadden [facility] CPT-74458 Level 3 Est. Patient 14:11:04 CDT Daniele Gaetano Bogdan [facility] CPT-87577 Level 3 Est. Patient 10:52:13 CDT Alexander LOPEZ [facility] CPT-58978 Level 3 Est. Patient 11:01:08 [employer] Daniele Mcfadden [facility] CPT-22858 Level 3 Est. Patient 10:55:35 CDT Daniele Salter [facility] CPT-63896 Level 3 Est. Patient 14:03:08 CDT Daniele Gaetano Mcfadden [facility] CPT-22878 Level 3 Est. Patient 11:26:19 CDT Margarito Kelley MD [facility] CPT-82857 Level 2 Est. Patient 15:32:04 [employer] Daniele Mcfadden [facility] CPT-55572 Level 3 Est. Patient 16:01:26 [employer]ESSIONAL Daniele Mcfadden [facility] CPT-19504 Level 3 Est. Patient 06:37:10 [employer] Daniele Mcfadden [facility] Procedures Code Procedure Name Date Entry Date Standard Description CPT-41918 Addl Vx - Ix admin via ID IM or jet injects without counseling by physician 14:37:19 CDT CPT-27026 Meningococcal B, recombinant vaccine 14:37:19 CDT 03/05 CPT-18843 First Vx - Ix admin via ID IM or jet injects without counseling by physician 14:37:19 CDT CPT-40544 Menveo Intramuscular Solution Reconstituted 14:37:19 CDT CPT-35761 Meningococcal Conjugate Vacine (Menactra) 11:20:04 CDT CPT-52955 Throat Culture - LAB USE ONLY 12:15:45 [employer] CPT-86697 Misa Flu A/B - LAB USE ONLY 12:15:45 [employer] CPT-07318 Rapid Strep (Reflex throat) - LAB USE ONLY 12:15:45 [employer] CPT-39474 Rapid Strep (Grp A) - LAB USE ONLY 13:06:06 CDT CPT-61408 Abd compl w upright 12:34:39 CDT CPT-36217 Immunization Single Admin 11:38:41 CDT CPT-73433 Fluzone Quadrivalent Intramuscular Suspension 0.5 ML 11: 38:41 CDT CPT-OV Office Visit 14:45:12 [employer] CPT-08836 Sono abd com inc all organs plus proximal aorta and distal IVC 2012 12:13:02 [employer] CPT-24139 Abd compl w upright 15:12:58 [employer] CPT-55027 Venipuncture Draw Fee 14:38:32 [employer] CPT-85795 Administration single or combination vaccine inc oral 17 :10:04 CDT CPT-87011 Gardasil 17:10:04 CDT CPT-31191 Venipuncture Draw Fee 16:07:54 [employer] CPT-94540 Administration 2+ single or combination vaccines inc oral 17:22:02 CDT CPT-17656 Administration single or combination vaccine inc oral 17 :22:02 CDT CPT-94917 Influenza split virus > age 3 17:22:02 CDT CPT-16610 Gardasil 17:22:02 CDT CPT-50669 Administration 2+ single or combination vaccines inc oral 14:38:31 CDT CPT-43735 Administration single or combination vaccine inc oral 14 :38:31 CDT CPT-51257 Meningococcal Conjugate Vacine (Menactra) 14:38:31 CDT CPT-67870 Gardasil 14:38:31 CDT
--- OUTSIDE RECORDS SUMMARY | 2018-02-15 06:43 | XMS REPORT | Clinical Summary ---
Author Author Admin, OLEG Organization [employer] Address Unknown Phone Unavailable Allergies, Adverse Reactions, [...] lower leg ATHLETIC PHYSICAL, NORMAL V70.3 Resolved Errlo Pack MD Other general medical examination for [...] rhinitis, cause unspecified Acute rhinosinusitis 461.9 Resolved Whtiley Hernandez Acute sinusitis, unspecified Fever 780.60 Resolved [...] MD Biliary dyskinesia ICD-575.8 Inactive Katie Gipson COUNTER INTELLIGENCE AGENT U R I ICD-465.9 Inactive Daniele Mcfadden [...] tube dysfunction, right ICD-381.81 Inactive Katie Gipson COUNTER INTELLIGENCE AGENT Pharyngitis-Acute ICD-462 Inactive Katie Gipson COUNTER INTELLIGENCE AGENT URI ICD-465.9 Inactive Katie Gipson COUNTER INTELLIGENCE AGENT Allergic rhinitis ICD-477.9 Inactive Katie Gipson COUNTER INTELLIGENCE AGENT Acute rhinosinusitis ICD-461.9 Inactive Katie Gipson COUNTER INTELLIGENCE AGENT Fever ICD-780.60 Inactive Katie Gipson LPN Immunization due ICD-V15.83 Inactive Katie Gipson LPN U R I ICD-465.9 Inactive Holly Sharma Pharyngitis-Acute ICD-462 Inactive Daniele Mcfadden DO Sinusitis, acute ICD-461.9 Inactive Margarito Kelley MD Medication List Medication Instructions Start Date Stop Date Generic Name NDC Status Provider Patient Instruction PREDNISONE 20 MG ORAL TABLET 2 tabs by mouth today, then 1 tab tomorrow 08/30 PREDNISONE [id number] No Longer Active Daniele Mcfadden DO Active FLUTICASONE PROPIONATE 50 MCG/ACT NASAL SUSPENSION 1 spray each nostril twice daily until bottle empty FLUTICASONE PROPIONATE 56747930608 Active Daniele Mcfadden DO Active PREDNISONE 10 MG ORAL TABLET 2 TABS BY MOUTH TODAY, THEN 1 TAB BY MOUTH DAYS 2 -5 PREDNISONE 95671694048 No Longer Active Daniele Mcfadden DO Active PREDNISONE 20 MG ORAL TABLET two tabs by mouth today, then one tab by mouth days two and three PREDNISONE 10252709224 No Longer Active Whitley Hernandez Active AZITHROMYCIN 250 MG ORAL TABLET 2 po qd x 1 day, then 1 po qd x 4 days 07/24 AZITHROMYCIN 79495390103 No Longer Active Daniele Mcfadden DO Active IRVING-D ALLERGY & CONGESTION 60-120 MG ORAL TABLET EXTENDED RELEASE 12 HOUR 1 tablet twice daily as needed for congestion/allergies FEXOFENADINE-PSEUDOEPHEDRINE 09704717902 Active Holly Sharam Active PREDNISONE 20 MG ORAL TABLET 2 tabs daily for 3 days, 1 tab daily for 3 days, 1/2 tab daily for 2 days start tomorrow 07/31/16 PREDNISONE 22048554972 No Longer Active Jillina Frazell UTILIZATION MANAGER Active AZITHROMYCIN 250 MG ORAL TABLET 2 po qd x 1 day, then 1 po qd x 4 days 08/30 AZITHROMYCIN 20798332460 No Longer Active Jillina Jiml UTILIZATION MANAGER Active MUCINEX D 60-600 MG ORAL TABLET EXTENDED RELEASE 12 HOUR 1 po BID PRN Congestion PSEUDOEPHEDRINE-GUAIFENESIN 75685741002 No Longer Active Jessika Nunes APRN Active CEFDINIR 300 MG ORAL CAPSULE 1 po BID x 10 days CEFDINIR 52296357595 No Longer Active Ezekielllina Alexandru UTILIZATION MANAGER Active PREDNISONE 20 MG ORAL TABLET 2 tabs daily for 3 days, 1 tab daily for 3 days, 1/2 tab daily for 2 days PREDNISONE 74248845687 No Longer Active Ezekielllina Jiml UTILIZATION MANAGER Active FLUTICASONE PROPIONATE 50 MCG/ACT NASAL SUSPENSION 1 to 2 sprays each nostril daily FLUTICASONE PROPIONATE 40961824215 No Longer Active Ezekielllina Alexandru UTILIZATION MANAGER Active GUAIFENESIN ER 600 MG ORAL TABLET EXTENDED RELEASE 12 HOUR 1 twice a day as needed for congestion GUAIFENESIN 25721018292 No Longer Active Ezekielllina Alexandru UTILIZATION MANAGER Active CEFDINIR 300 MG ORAL CAPSULE by mouth twice a day CEFDINIR 74566999473 No Longer Active Ezekielllina Alexandru ONTIVEROSN Active PREDNISONE 20 MG ORAL TABLET 1 tablet twice daily for 2 days, then 1 tablet once daily for 2 days PREDNISONE 56607360333 No Longer Active Jillina Jiml UTILIZATION MANAGER Active PREDNISONE 20 MG ORAL TABLET 2 tabs daily for 3 days, 1 tab daily for 3 days, 1/2 tab daily for 2 days PREDNISONE 26359331182 No Longer Active Margarito Kelley MD Active IRVING-D ALLERGY & CONGESTION TABLET EXTENDED RELEASE 12 HOUR 1 po bid 05/26 FEXOFENADINE-PSEUDOEPHEDRINE [id number] 06203705729 No Longer Active Margarito Kelley MD Active PREDNISONE 20 MG ORAL TABLET 2 tabs daily for 3 days, 1 tab daily for 3 days, 1/2 tab daily for 2 days PREDNISONE 83228245408 No Longer Active Ezekielllina Fratracey JOHNSON Active CEFDINIR 300 MG ORAL CAPSULE 1 cap by mouth twice a day CEFDINIR 14613518695 No Longer Active Jillina Frazell UTILIZATION MANAGER Active E-Z SPACER DEVICE use with proair inhalier every 4 times as need. SPACER/AERO-HOLDING CHAMBERS 23016850545 No Longer Active Jillina Framarkl ALEX Active PROAIR HFA 108 (90 Base) MCG/ACT INHALATION AEROSOL SOLUTION 2 puffs every 4 hours as needed ALBUTEROL SULFATE 34242150872 No Longer Active Ezekielllsd Fernandezl UTILIZATION MANAGER Active CEFTIN 500 MG ORAL TABLET 1 tablet by mouth twice daily for ten days. CEFUROXIME AXETIL 74220221709 No Longer Active Griselda Horvath APRN Active PREDNISONE 20 MG ORAL TABLET 2 tabs daily for 3 days, 1 tab daily for 3 days, 1/2 tab daily for 2 days PREDNISONE 60925857156 No Longer Active Margarito Kelley MD Active CEPHALEXIN 500 MG ORAL CAPSULE 1 tablet by mouth three times daily for ten days CEPHALEXIN 70644348591 No Longer Active Renée Adames APRN Active MEDROL 4 MG ORAL TABLET THERAPY PACK 6 pills on day 1, 5 pills on day 2, 4 pills on day 3, 4 pills on day 4, 2 pills on day 5, 1 pill on day 6 METHYLPREDNISOLONE 66932714256 No Longer Active Annita Mejia MD PhD Active ZITHROMAX Z-MARY 250 MG ORAL TABLET 2 today and then 1 daily for 4 days 03/11 AZITHROMYCIN 84332052569 No Longer Active Annita Mejia MD PhD Active GUAIFENESIN-CODEINE 100-10 MG/5ML ORAL SYRUP 5ml every 4 to 6 hours as needed for cough GUAIFENESIN-CODEINE 12534533683 No Longer Active Annita Mejia MD PhD Active FLONASE 50 MCG/ACT NASAL SUSPENSION 1 spray each nostril am and hs FLUTICASONE PROPIONATE 70428982656 No Longer Active Kendell Coronado MD Active MELOXICAM 15 MG ORAL TABLET 1 po q day for pain with food MELOXICAM 00868585547 No Longer Active Kendell Coronado MD Active HYDROCODONE-ACETAMINOPHEN 5-325 MG ORAL TABLET 1-2 q 4-6 hrs prn pain 20 tabs HYDROCODONE-ACETAMINOPHEN 88174910862 No Longer Active Daniele Mcfadden DO Active PREDNISONE 20 MG ORAL TABLET 1 tablet twice daily for 2 days, then 1 tablet once daily for 2 days PREDNISONE 47293434196 No Longer Active Daniele Mcfadden DO Active PREDNISONE 20 MG ORAL TABLET 1 po bid 2 days, then daily for 2 days PREDNISONE 77543461085 No Longer Active Alexander LOPEZ Active AZITHROMYCIN 250 MG ORAL TABLET 2 po qd x 1 day, then 1 po qd x 4 days 08/05 AZITHROMYCIN 61760128897 No Longer Active Daniele Mcfadden DO Active MUCINEX MAXIMUM STRENGTH TABLET EXTENDED RELEASE 12 HOUR 1 po qd GUAIFENESIN [id number] 87950317745 No Longer Active Daniele Mcfadden DO Active AZITHROMYCIN 250 MG ORAL TABLET 2 po qd x 1 day, then 1 po qd x 4 days 11/26 AZITHROMYCIN 99765815420 No Longer Active Margarito Kelley MD Active MUCINEX MAXIMUM STRENGTH TABLET EXTENDED RELEASE 12 HOUR 1 po qd MUCINEX MAXIMUM STRENGTH TABLET EXTENDED RELEASE 12 HOUR GUAIFENESIN [id number] Inactive PREDNISONE 20 MG ORAL TABLET 1 po bid 2 days, then daily for 2 days PREDNISONE 20 MG ORAL TABLET 444405 PREDNISONE Inactive PREDNISONE 20 MG ORAL TABLET 1 tablet twice daily for 2 days, then 1 tablet once daily for 2 days PREDNISONE 20 MG ORAL TABLET 540017 PREDNISONE Inactive HYDROCODONE-ACETAMINOPHEN 5-325 MG ORAL TABLET 1-2 q 4-6 hrs prn pain 20 tabs HYDROCODONE-ACETAMINOPHEN 5-325 MG ORAL TABLET 085451 HYDROCODONE-ACETAMINOPHEN Inactive MELOXICAM 15 MG ORAL TABLET 1 po q day for pain with food MELOXICAM 15 MG ORAL TABLET 794396 MELOXICAM Inactive FLONASE 50 MCG/ACT NASAL SUSPENSION 1 spray each nostril am and hs FLONASE 50 MCG/ACT NASAL SUSPENSION 6479085 FLUTICASONE PROPIONATE Inactive GUAIFENESIN-CODEINE 100-10 MG/5ML ORAL SYRUP 5ml every 4 to 6 hours as needed for cough GUAIFENESIN-CODEINE 100-10 MG/5ML ORAL SYRUP 032544 GUAIFENESIN-CODEINE Inactive ZITHROMAX Z-MARY 250 MG ORAL TABLET 2 today and then 1 daily for 4 days 03/11 ZITHROMAX Z-MARY 250 MG ORAL TABLET 240432 AZITHROMYCIN Inactive CEFTIN 500 MG ORAL TABLET [...] CONGESTION TABLET EXTENDED RELEASE 12 HOUR FEXOFENADINE-PSEUDOEPHEDRINE [id number] Inactive PREDNISONE 20 MG ORAL TABLET 1 tablet twice daily for 2 days, then 1 tablet once daily for 2 days PREDNISONE 20 MG ORAL TABLET 082213 PREDNISONE Inactive GUAIFENESIN ER 600 MG ORAL TABLET EXTENDED RELEASE 12 HOUR 1 twice a day as needed for congestion GUAIFENESIN ER 600 MG ORAL TABLET EXTENDED RELEASE 12 HOUR GUAIFENESIN Inactive FLUTICASONE PROPIONATE 50 MCG/ACT NASAL SUSPENSION 1 to 2 sprays each nostril daily FLUTICASONE PROPIONATE 50 MCG/ACT NASAL SUSPENSION 5199511 FLUTICASONE PROPIONATE Inactive MUCINEX D 60-600 MG ORAL TABLET EXTENDED RELEASE 12 HOUR 1 po BID PRN Congestion MUCINEX D 60-600 MG ORAL TABLET EXTENDED RELEASE 12 HOUR PSEUDOEPHEDRINE-GUAIFENESIN Inactive PREDNISONE 20 MG ORAL TABLET two tabs by mouth today, then one tab by mouth days two and three PREDNISONE 20 MG ORAL TABLET 946432 PREDNISONE Inactive PREDNISONE 10 MG ORAL TABLET 2 TABS BY MOUTH TODAY, THEN 1 TAB BY MOUTH DAYS 2 -5 PREDNISONE 10 MG ORAL TABLET 257808 PREDNISONE Inactive PREDNISONE 20 MG ORAL TABLET 2 tabs by mouth today, then 1 tab tomorrow 08/30 PREDNISONE 20 MG ORAL TABLET 099012 PREDNISONE Inactive AZITHROMYCIN 250 MG ORAL TABLET 2 po qd x 1 day, then 1 po qd x 4 days 11/26 AZITHROMYCIN 250 MG ORAL TABLET 105107 AZITHROMYCIN Inactive AZITHROMYCIN 250 MG ORAL TABLET 2 po qd x 1 day, then 1 po qd x 4 days 08/05 AZITHROMYCIN 250 MG ORAL TABLET 263537 AZITHROMYCIN Inactive MEDROL 4 MG ORAL TABLET THERAPY PACK 6 pills on day 1, 5 pills on day 2, 4 pills on day 3, 4 pills on day 4, 2 pills on day 5, 1 pill on day 6 MEDROL 4 MG ORAL TABLET THERAPY PACK 298306 METHYLPREDNISOLONE Inactive CEPHALEXIN 500 MG ORAL CAPSULE 1 tablet by mouth three times daily for ten days CEPHALEXIN 500 MG ORAL CAPSULE 528806 CEPHALEXIN Inactive PREDNISONE 20 MG ORAL TABLET 2 tabs daily for 3 days, 1 tab daily for 3 days, 1/2 tab daily for 2 days PREDNISONE 20 MG ORAL TABLET 921924 PREDNISONE Inactive CEFDINIR 300 MG ORAL CAPSULE 1 cap by mouth twice a day CEFDINIR 300 MG ORAL CAPSULE 643188 CEFDINIR Inactive PREDNISONE 20 MG ORAL TABLET 2 tabs daily for 3 days, 1 tab daily for 3 days, 1/2 tab daily for 2 days PREDNISONE 20 MG ORAL TABLET 698142 PREDNISONE Inactive PREDNISONE 20 MG ORAL TABLET 2 tabs daily for 3 days, 1 tab daily for 3 days, 1/2 tab daily for 2 days PREDNISONE 20 MG ORAL TABLET 036220 PREDNISONE Inactive CEFDINIR 300 MG ORAL CAPSULE by mouth twice a day CEFDINIR 300 MG ORAL CAPSULE 667602 CEFDINIR Inactive PREDNISONE 20 MG ORAL TABLET 2 tabs daily for 3 days, 1 tab daily for 3 days, 1/2 tab daily for 2 days PREDNISONE 20 MG ORAL TABLET 370866 PREDNISONE Inactive CEFDINIR 300 MG ORAL CAPSULE 1 po BID x 10 days CEFDINIR 300 MG ORAL CAPSULE 198575 CEFDINIR Inactive AZITHROMYCIN 250 MG ORAL TABLET 2 po qd x 1 day, then 1 po qd x 4 days 08/30 AZITHROMYCIN 250 MG ORAL TABLET 171872 AZITHROMYCIN Inactive PREDNISONE 20 MG ORAL TABLET 2 tabs daily for 3 days, 1 tab daily for 3 days, 1/2 tab daily for 2 days start tomorrow 07/31/16 PREDNISONE 20 MG ORAL TABLET 913693 PREDNISONE Inactive AZITHROMYCIN 250 MG ORAL TABLET 2 po qd x 1 day, then 1 po qd x 4 days 07/24 AZITHROMYCIN 250 MG ORAL TABLET 772681 AZITHROMYCIN Inactive Immunizations Vaccine Administration Date Value Standard Description Human Papillomavirus vaccine (Gardasil) #2, (HPV #2) Gardasil [ CVX62] human papilloma virus vaccine, quadrivalent Seasonal influenza vaccine, injectable, containing preservative, for > 3 years old (Afluria, FluLaval, Fluzone, Fluvirin, Fluarix, Agriflu(>=18 yo)) Fluzone (>3 yrs.) [[id number]] Influenza, seasonal, injectable Human Papillomavirus Vaccine (Gardasil) #1 Given (HPV #1) Gardasil [CVX62] human papilloma virus vaccine, quadrivalent hepatitis A immunization #2 Havrix-Pedi hepatitis A vaccine, unspecified formulation Boostrix (Tetanus toxoid, reduced diphtheria toxoid and acellular pertussis vaccine, adsorbed), booster Boostrix [[id number]] tetanus toxoid, reduced diphtheria toxoid, and acellular [...] Negative Encounters Code Encounter Date Provider Facility CPT-83491 Level 3 Est. Patient 16:00:45 CDT Daniele Mcfadden [facility] CPT-89387 Level 3 Est. Patient 15:57:40 CDT Daniele Salter [facility] CPT-63869 Level 3 Est. Patient 09:35:49 [employer] Daniele Salter [facility] CPT-22837 Level 3 Est. Patient 09:35:25 NAVAL SCIENCE TEACHER Daniele Mcfadden [facility] CPT-49261 Level 3 Est. Patient 16:03:55 NAVAL SCIENCE TEACHER Whitley Quiroz [facility] CPT-27421 Level 3 Est. Patient 17:42:49 NAVAL SCIENCE TEACHER Whitley Quiroz [facility]-38544 Level 3 Est. Patient 10:49:47 NAVAL SCIENCE TEACHER Griselda Horvath [facility]-75084 Level 3 Est. Patient 08:43:59 NAVAL SCIENCE TEACHER Jessika Nunes [facility] CPT-21766 Level 3 Est. Patient 09:05:19 NAVAL SCIENCE TEACHER Griselda Horvath [facility] CPT-03777 Level 3 Est. Patient 15:45:46 CDT Griselda Horvath [facility]-89944 Level 3 Est. Patient 14:15:52 CDT Daniele Mcfadden [facility] CPT-48256 Level 3 Est. Patient 13:57:19 NAVAL SCIENCE TEACHER Margarito Kelley MD -[id number] Level 3 Est. Patient 09:16:05 NAVAL SCIENCE TEACHER Margarito Kelley MD -46344 Level 3 Est. Patient 15:37:06 NAVAL SCIENCE TEACHER Daniele Mcfadden [facility] CPT-87492 Level 3 Est. Patient 11:56:34 NAVAL SCIENCE TEACHER Renée Adames [facility] CPT-07706 Level 3 Est. Patient 12:19:42 CDT Daniele Mcfadden [facility] CPT-09782 Level 3 Est. Patient 11:08:45 CDT Annita Mejia MD PhD [facility] [place]-62331 Level 3 Est. Patient 12:00:17 CDT Kendell Coronado MD [facility] CPT-61679 Level 3 Est. Patient 12:27:25 CDT Daniele Mcfadden [facility] CPT-80867 Level 3 Est. Patient 18:45:11 NAVAL SCIENCE TEACHER Daniele Mcfadden [facility] CPT-33381 Level 3 Est. Patient 10:12:24 NAVAL SCIENCE TEACHER Daniele Mcfadden [facility] CPT-54906 Level 3 Est. Patient 14:35:11 NAVAL SCIENCE TEACHER Daniele Mcfadden [facility] CPT-53330 Level 3 Est. Patient 14:11:04 CDT Daniele Mcfadden [facility] CPT-58819 Level 3 Est. Patient 10:52:13 CDT Alexander Estrada [facility] CPT-26814 Level 3 Est. Patient 11:01:08 NAVAL SCIENCE TEACHER Daniele Mcfadden [facility] CPT-86579 Level 3 Est. Patient 10:55:35 CDT Daniele Mcfadden [facility] CPT-13970 Level 3 Est. Patient 14:03:08 CDT Daniele Mcfadden [facility] CPT-74093 Level 3 Est. Patient 11:26:19 CDT Margarito Kelley MD [facility] CPT-42550 Level 2 Est. Patient 15:32:04 NAVAL SCIENCE TEACHER Daniele Mcfadden [facility] CPT-89906 Level 3 Est. Patient 16:01:26 NAVAL SCIENCE TEACHER Daniele Gaetano Bogdan [facility] CPT-12500 Level 3 Est. Patient 06:37:10 NAVAL SCIENCE TEACHER Daniele Gaetano [facility] Procedures Code Procedure Name Date Entry Date Standard Description CPT-84395 Addl Vx - Ix admin via ID IM or jet injects without counseling by physician 14:37:19 CDT CPT-74171 Meningococcal B, recombinant vaccine 14:37:19 CDT 03/05 CPT-68647 First Vx - Ix admin via ID IM or jet injects without counseling by physician 14:37:19 CDT CPT-06004 Menveo Intramuscular Solution Reconstituted 14:37:19 CDT CPT-98510 Meningococcal Conjugate Vacine (Menactra) 11:20:04 CDT CPT-80607 Throat Culture - LAB USE ONLY 12:15:45 NAVAL SCIENCE TEACHER CPT-23234 Misa Flu A/B - LAB USE ONLY 12:15:45 NAVAL SCIENCE TEACHER CPT-89725 Rapid Strep (Reflex throat) - LAB USE ONLY 12:15:45 NAVAL SCIENCE TEACHER CPT-62877 Rapid Strep (Grp A) - LAB USE ONLY 13:06:06 CDT CPT-20389 Abd compl w upright 12:34:39 CDT CPT-19832 Immunization Single Admin 11:38:41 CDT CPT-20643 Fluzone Quadrivalent Intramuscular Suspension 0.5 ML 11: 38:41 CDT CPT-OV Office Visit 14:45:12 NAVAL SCIENCE TEACHER CPT-49031 [employer] inc all organs plus proximal aorta and distal IVC 2012 12:13:02 NAVAL SCIENCE TEACHER CPT-15321 Abd compl w upright 15:12:58 [employer]AL SCIENCE TEACHER CPT-65916 Venipuncture Draw Fee 14:38:32 [employer]AL [employer]ENCE TEACHER CPT-71109 Administration single or combination vaccine inc oral 17 :10:04 CDT CPT-94339 Gardasil 17:10:04 CDT CPT-33874 Venipuncture Draw Fee 16:07:54 [employer] TE[employer]ER CPT-31286 Administration 2+ single or combination vaccines inc oral 17:22:02 CDT CPT-46299 Administration single or combination vaccine inc oral 17 :22:02 CDT CPT-90158 Influenza split virus > age 3 17:22:02 CDT CPT-82820 Gardasil 17:22:02 CDT CPT-18782 Administration 2+ single or combination vaccines inc oral 14:38:31 CDT CPT-26864 Administration single or combination vaccine inc oral 14 :38:31 CDT CPT-90306 Meningococcal Conjugate Vacine (Menactra) 14:38:31 CDT CPT-29458 Gardasil 14:38:31 CDT
--- OUTSIDE RECORDS SUMMARY | 2018-02-15 06:44 | XMS REPORT | Clinical Summary ---
Author Author Admin, OLEG Organization [facility] Address Unknown Phone Unavailable Allergies, Adverse Reactions, [...] Acute upper respiratory infections of unspecified site CONCUSSION WITH LOC OF 30 MINUTES OR [...] R I ICD-465.9 Inactive Daniele Mcfadden DO ALLERGIC RHINITIS ICD-477.9 Inactive Errol Pack MD Abdominal pain ICD-789.00 Inactive Kendell Coronado MD Ankle sprain ICD-845.00 Inactive Kendell Coronado MD Pharyngitis ICD-462 Inactive Annita Mejia MD PhD Vaccination against influenza ICD-V04.81 Inactive Margarito Kelley MD Flank pain, right ICD-789.09 Inactive Margarito Kelley MD Pharyngitis, acute ICD-462 Inactive Margarito Kelley MD Knee pain, left ICD-719.46 Inactive Margarito Kelley MD Upper respiratory infection, viral ICD-465.9 Inactive Katie Gipson [employer]ACH[employer] Sinusitis ICD-473.9 Inactive Katie Gipson [employer]OB COACHING 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 Eustachian tube dysfunction, right ICD-381.81 Inactive Katie Gipson JOB COACHING Pharyngitis-Acute ICD-462 Inactive Katie Gipson JOB COACHING URI ICD-465.9 Inactive Katie Gipson JOB COACHING Allergic rhinitis ICD-477.9 Inactive Katie Gipson JOB COACHING Acute rhinosinusitis ICD-461.9 Inactive Katie Gipson JOB COACHING Fever ICD-780.60 Inactive Katie Gipson JOB COACHING Immunization due ICD-V15.83 Inactive Katie Gipson [employer] COACHING Fatigue ICD-780.79 Inactive Margarito Kelley MD 2014 Sinusitis, acute ICD-461.9 Inactive Margarito Kelley MD Medication List Medication Instructions Start Date Stop Date Generic Name NDC Status Provider Patient Instruction PREDNISONE 10 MG ORAL TABLET 2 TABS BY MOUTH TODAY, THEN 1 TAB BY MOUTH DAYS 2 -5 PREDNISONE [id number] Active Daniele Mcfadden DO Active PREDNISONE 20 MG ORAL TABLET two tabs by mouth today, then one tab by mouth days two and three PREDNISONE 91360221274 No Longer Active Whitley Hernandez Active AZITHROMYCIN 250 MG ORAL TABLET 2 po qd x 1 day, then 1 po qd x 4 days 07/24 AZITHROMYCIN 15574548618 No Longer Active Daniele Mcfadden DO Active IRVING-D ALLERGY & CONGESTION 60-120 MG ORAL TABLET EXTENDED RELEASE 12 HOUR 1 tablet twice daily as needed for congestion/allergies FEXOFENADINE-PSEUDOEPHEDRINE 85787621843 Active Holly Sharma Active PREDNISONE 20 MG ORAL TABLET 2 tabs daily for 3 days, 1 tab daily for 3 days, 1/2 tab daily for 2 days start tomorrow 07/31/16 PREDNISONE 23286251272 No Longer Active Jillina Alexandru JOHNSON Active AZITHROMYCIN 250 MG ORAL TABLET 2 po qd x 1 day, then 1 po qd x 4 days 08/30 AZITHROMYCIN 03047772490 No Longer Active Jillina Alexandru JOHNSON Active MUCINEX D 60-600 MG ORAL TABLET EXTENDED RELEASE 12 HOUR 1 po BID PRN Congestion PSEUDOEPHEDRINE-GUAIFENESIN 47464690774 No Longer Active Jessika Nunes APRN Active CEFDINIR 300 MG ORAL CAPSULE 1 po BID x 10 days CEFDINIR 75262669832 No Longer Active Jillina Alexandru JOHNSON Active PREDNISONE 20 MG ORAL TABLET 2 tabs daily for 3 days, 1 tab daily for 3 days, 1/2 tab daily for 2 days PREDNISONE 72654382037 No Longer Active Jillina Frazell AUTOMATION SPECIALIST Active FLUTICASONE PROPIONATE 50 MCG/ACT NASAL SUSPENSION 1 to 2 sprays each nostril daily FLUTICASONE PROPIONATE 66084960335 No Longer Active Jillina Frazell AUTOMATION SPECIALIST Active GUAIFENESIN ER 600 MG ORAL TABLET EXTENDED RELEASE 12 HOUR 1 twice a day as needed for congestion GUAIFENESIN 83228478278 No Longer Active Ezekielllina Jiml AUTOMATION SPECIALIST Active CEFDINIR 300 MG ORAL CAPSULE by mouth twice a day CEFDINIR 41141785547 No Longer Active Jillina Frazell AUTOMATION SPECIALIST Active PREDNISONE 20 MG ORAL TABLET 1 tablet twice daily for 2 days, then 1 tablet once daily for 2 days PREDNISONE 80534374695 No Longer Active Jillina Framarkl AUTOMATION SPECIALIST Active PREDNISONE 20 MG ORAL TABLET 2 tabs daily for 3 days, 1 tab daily for 3 days, 1/2 tab daily for 2 days PREDNISONE 10214340715 No Longer Active Margarito Kelley MD Active IRVING-D ALLERGY & CONGESTION TABLET EXTENDED RELEASE 12 HOUR 1 po bid 05/26 FEXOFENADINE-PSEUDOEPHEDRINE [id number] 31540529274 No Longer Active Margarito Kelley MD Active PREDNISONE 20 MG ORAL TABLET 2 tabs daily for 3 days, 1 tab daily for 3 days, 1/2 tab daily for 2 days PREDNISONE 99916831614 No Longer Active Ezekielllina Alexandru JOHNSON Active CEFDINIR 300 MG ORAL CAPSULE 1 cap by mouth twice a day CEFDINIR 12386236002 No Longer Active Jillina Jiml AUTOMATION SPECIALIST Active E-Z SPACER DEVICE use with proair inhalier every 4 times as need. SPACER/AERO-HOLDING CHAMBERS 36415072576 No Longer Active Jillina Jiml AUTOMATION SPECIALIST Active PROAIR HFA 108 (90 Base) MCG/ACT INHALATION AEROSOL SOLUTION 2 puffs every 4 hours as needed ALBUTEROL SULFATE 94322897440 No Longer Active Ezekielllina Alexandru ONTIVEROSN Active CEFTIN 500 MG ORAL TABLET 1 tablet by mouth twice daily for ten days. CEFUROXIME AXETIL 58063993423 No Longer Active Ezekielllsd Horvath APRN Active PREDNISONE 20 MG ORAL TABLET 2 tabs daily for 3 days, 1 tab daily for 3 days, 1/2 tab daily for 2 days PREDNISONE 82594370464 No Longer Active Margarito Kelley MD Active CEPHALEXIN 500 MG ORAL CAPSULE 1 tablet by mouth three times daily for ten days CEPHALEXIN 51157825645 No Longer Active Renée Adames ALEX Active MEDROL 4 MG ORAL TABLET THERAPY PACK 6 pills on day 1, 5 pills on day 2, 4 pills on day 3, 4 pills on day 4, 2 pills on day 5, 1 pill on day 6 METHYLPREDNISOLONE 30751607447 No Longer Active Annita Mejia MD PhD Active ZITHROMAX Z-MARY 250 MG ORAL TABLET 2 today and then 1 daily for 4 days 03/11 AZITHROMYCIN 36100951724 No Longer Active Annita Mejia MD PhD Active GUAIFENESIN-CODEINE 100-10 MG/5ML ORAL SYRUP 5ml every 4 to 6 hours as needed for cough GUAIFENESIN-CODEINE 57775910542 No Longer Active Annita Mejia MD PhD Active FLONASE 50 MCG/ACT NASAL SUSPENSION 1 spray each nostril am and hs FLUTICASONE PROPIONATE 29678089931 No Longer Active Kendell Coronado MD Active MELOXICAM 15 MG ORAL TABLET 1 po q day for pain with food MELOXICAM 00598948616 No Longer Active Kendell Cornoado MD Active HYDROCODONE-ACETAMINOPHEN 5-325 MG ORAL TABLET 1-2 q 4-6 hrs prn pain 20 tabs HYDROCODONE-ACETAMINOPHEN 00138007937 No Longer Active Daniele Mcfadden DO Active PREDNISONE 20 MG ORAL TABLET 1 tablet twice daily for 2 days, then 1 tablet once daily for 2 days PREDNISONE 81312071318 No Longer Active Daniele Mcfadden DO Active PREDNISONE 20 MG ORAL TABLET 1 po bid 2 days, then daily for 2 days PREDNISONE 21931980524 No Longer Active Alexander LOPEZ Active AZITHROMYCIN 250 MG ORAL TABLET 2 po qd x 1 day, then 1 po qd x 4 days 08/05 AZITHROMYCIN 68465771578 No Longer Active Daniele Mcfadden DO Active MUCINEX MAXIMUM STRENGTH TABLET EXTENDED RELEASE 12 HOUR 1 po qd GUAIFENESIN [id number] 17042548797 No Longer Active Daniele Mcfadden DO Active AZITHROMYCIN 250 MG ORAL TABLET 2 po qd x 1 day, then 1 po qd x 4 days 11/26 AZITHROMYCIN 04642965015 No Longer Active Margarito Kelley MD Active MUCINEX MAXIMUM STRENGTH TABLET EXTENDED RELEASE 12 HOUR 1 po qd MUCINEX MAXIMUM STRENGTH TABLET EXTENDED RELEASE 12 HOUR GUAIFENESIN [id number] Inactive PREDNISONE 20 MG ORAL TABLET 1 po bid 2 days, then daily for 2 days PREDNISONE 20 MG ORAL TABLET 282824 PREDNISONE Inactive PREDNISONE 20 MG ORAL TABLET 1 tablet twice daily for 2 days, then 1 tablet once daily for 2 days PREDNISONE 20 MG ORAL TABLET 068954 PREDNISONE Inactive HYDROCODONE-ACETAMINOPHEN 5-325 MG ORAL TABLET 1-2 q 4-6 hrs prn pain 20 tabs HYDROCODONE-ACETAMINOPHEN 5-325 MG ORAL TABLET 350875 HYDROCODONE-ACETAMINOPHEN Inactive MELOXICAM 15 MG ORAL TABLET 1 po q day for pain with food MELOXICAM 15 MG ORAL TABLET 359086 MELOXICAM Inactive FLONASE 50 MCG/ACT NASAL SUSPENSION 1 spray each nostril am and hs FLONASE 50 MCG/ACT NASAL SUSPENSION 4431709 FLUTICASONE PROPIONATE Inactive GUAIFENESIN-CODEINE 100-10 MG/5ML ORAL SYRUP 5ml every 4 to 6 hours as needed for cough GUAIFENESIN-CODEINE 100-10 MG/5ML ORAL SYRUP 199717 GUAIFENESIN-CODEINE Inactive ZITHROMAX Z-MARY 250 MG ORAL TABLET 2 today and then 1 daily for 4 days 03/11 ZITHROMAX Z-MARY 250 MG ORAL TABLET 983834 AZITHROMYCIN Inactive CEFTIN 500 MG ORAL TABLET 1 tablet by mouth twice daily for ten days. CEFTIN 500 MG ORAL TABLET 988604 CEFUROXIME AXETIL Inactive PROAIR HFA 108 (90 [...] CONGESTION TABLET EXTENDED RELEASE 12 HOUR FEXOFENADINE-PSEUDOEPHEDRINE [id number] Inactive PREDNISONE 20 MG ORAL TABLET 1 tablet twice daily for 2 days, then 1 tablet once daily for 2 days PREDNISONE 20 MG ORAL TABLET 106874 PREDNISONE Inactive GUAIFENESIN ER 600 MG ORAL TABLET EXTENDED RELEASE 12 HOUR 1 twice a day as needed for congestion GUAIFENESIN ER 600 MG ORAL TABLET EXTENDED RELEASE 12 HOUR GUAIFENESIN Inactive FLUTICASONE PROPIONATE 50 MCG/ACT NASAL SUSPENSION 1 to 2 sprays each nostril daily FLUTICASONE PROPIONATE 50 MCG/ACT NASAL SUSPENSION 7234566 FLUTICASONE PROPIONATE Inactive MUCINEX D 60-600 MG ORAL TABLET EXTENDED RELEASE 12 HOUR 1 po BID PRN Congestion MUCINEX D 60-600 MG ORAL TABLET EXTENDED RELEASE 12 HOUR PSEUDOEPHEDRINE-GUAIFENESIN Inactive PREDNISONE 20 MG ORAL TABLET two tabs by mouth today, then one tab by mouth days two and three PREDNISONE 20 MG ORAL TABLET 314171 PREDNISONE Inactive AZITHROMYCIN 250 MG ORAL TABLET 2 po qd x 1 day, then 1 po qd x 4 days 11/26 AZITHROMYCIN 250 MG ORAL TABLET 420826 AZITHROMYCIN Inactive AZITHROMYCIN 250 MG ORAL TABLET 2 po qd x 1 day, then 1 po qd x 4 days 08/05 AZITHROMYCIN 250 MG ORAL TABLET 954407 AZITHROMYCIN Inactive MEDROL 4 MG ORAL TABLET THERAPY PACK 6 pills on day 1, 5 pills on day 2, 4 pills on day 3, 4 pills on day 4, 2 pills on day 5, 1 pill on day 6 MEDROL 4 MG ORAL TABLET THERAPY PACK 385444 METHYLPREDNISOLONE Inactive CEPHALEXIN 500 MG ORAL CAPSULE 1 tablet by mouth three times daily for ten days CEPHALEXIN 500 MG ORAL CAPSULE 445240 CEPHALEXIN Inactive PREDNISONE 20 MG ORAL TABLET 2 tabs daily for 3 days, 1 tab daily for 3 days, 1/2 tab daily for 2 days PREDNISONE 20 MG ORAL TABLET 913822 PREDNISONE Inactive CEFDINIR 300 MG ORAL CAPSULE 1 cap by mouth twice a day CEFDINIR 300 MG ORAL CAPSULE 307387 CEFDINIR Inactive PREDNISONE 20 MG ORAL TABLET 2 tabs daily for 3 days, 1 tab daily for 3 days, 1/2 tab daily for 2 days PREDNISONE 20 MG ORAL TABLET 159661 PREDNISONE Inactive PREDNISONE 20 MG ORAL TABLET 2 tabs daily for 3 days, 1 tab daily for 3 days, 1/2 tab daily for 2 days PREDNISONE 20 MG ORAL TABLET 507294 PREDNISONE Inactive CEFDINIR 300 MG ORAL CAPSULE by mouth twice a day CEFDINIR 300 MG ORAL CAPSULE 658472 CEFDINIR Inactive PREDNISONE 20 MG ORAL TABLET 2 tabs daily for 3 days, 1 tab daily for 3 days, 1/2 tab daily for 2 days PREDNISONE 20 MG ORAL TABLET 165294 PREDNISONE Inactive CEFDINIR 300 MG ORAL CAPSULE 1 po BID x 10 days CEFDINIR 300 MG ORAL CAPSULE 573159 CEFDINIR Inactive AZITHROMYCIN 250 MG ORAL TABLET 2 po qd x 1 day, then 1 po qd x 4 days 08/30 AZITHROMYCIN 250 MG ORAL TABLET 373214 AZITHROMYCIN Inactive PREDNISONE 20 MG ORAL TABLET 2 tabs daily for 3 days, 1 tab daily for 3 days, 1/2 tab daily for 2 days start tomorrow 07/31/16 PREDNISONE 20 MG ORAL TABLET 528292 PREDNISONE Inactive AZITHROMYCIN 250 MG ORAL TABLET 2 po qd x 1 day, then 1 po qd x 4 days 07/24 AZITHROMYCIN 250 MG ORAL TABLET 915786 AZITHROMYCIN Inactive Immunizations Vaccine Administration Date Value Standard Description Human Papillomavirus vaccine (Gardasil) #2, (HPV #2) Gardasil [ CVX62] human papilloma virus vaccine, quadrivalent Seasonal influenza vaccine, injectable, containing preservative, for > 3 years old (Afluria, FluLaval, Fluzone, Fluvirin, Fluarix, Agriflu(>=18 yo)) Fluzone (>3 yrs.) [[id number]] Influenza, seasonal, injectable Human Papillomavirus Vaccine (Gardasil) #1 Given (HPV #1) Gardasil [CVX62] human papilloma virus vaccine, quadrivalent hepatitis A immunization #2 Havrix-Pedi hepatitis A vaccine, unspecified formulation Boostrix (Tetanus toxoid, reduced diphtheria toxoid and acellular pertussis vaccine, adsorbed), booster Boostrix [RXC396] tetanus toxoid, reduced diphtheria toxoid, and acellular [...] Negative;Positive Encounters Code Encounter Date Provider Facility CPT-71685 Level 3 Est. Patient 16:03:55 REEL FILM INSPECTOR Whitley Quiroz [facility]-94767 Level 3 Est. Patient 17:42:49 REEL FILM INSPECTOR Whitley Quiroz [facility]-03039 Level 3 Est. Patient 10:49:47 REEL FILM INSPECTOR Griselda Horvath [facility]-45142 Level 3 Est. Patient 08:43:59 REEL FILM INSPECTOR Jessika Nunes [facility] CPT-97048 Level 3 Est. Patient 09:05:19 REEL FILM INSPECTOR Griselda Horvath [facility] CPT-36765 Level 3 Est. Patient 15:45:46 CDT Griselda Horvath [facility]-10848 Level 3 Est. Patient 14:15:52 CDT Daniele Mcfadden [facility]-27480 Level 3 Est. Patient 13:57:19 REEL FILM INSPECTOR Margarito Kelley MD [facility]-15653 Level 3 Est. Patient 09:16:05 REEL FILM INSPECTOR Margarito Kelley MD [facility]-90721 Level 3 Est. Patient 15:37:06 REEL FILM INSPECTOR Daniele Mcfadden [facility] CPT-45316 Level 3 Est. Patient 11:56:34 REEL FILM INSPECTOR Renée Adames [facility] CPT-20734 Level 3 Est. Patient 12:19:42 CDT Daniele Mcfadden [facility] CPT-58082 Level 3 Est. Patient 11:08:45 CDT Annita Mejia MD PhD [facility] CPT-32554 Level 3 Est. Patient 12:00:17 CDT Kendell Coronado MD [facility] [place]-47267 Level 3 Est. Patient 12:27:25 CDT Daniele Mcfadden [facility] CPT-01990 Level 3 Est. Patient 18:45:11 REEL FILM INSPECTOR Daniele Mcfadden [facility] CPT-50490 Level 3 Est. Patient 10:12:24 REEL FILM INSPECTOR Daniele Mcfadden [facility] CPT-51456 Level 3 Est. Patient 14:35:11 REEL FILM INSPECTOR Daniele Mcfadden [facility] CPT-48043 Level 3 Est. Patient 14:11:04 CDT Daniele Mcfadden [facility] CPT-97504 Level 3 Est. Patient 10:52:13 CDT Alexander Estrada [facility] CPT-73660 Level 3 Est. Patient 11:01:08 REEL FILM INSPECTOR Daniele Mcfadden [facility] CPT-90802 Level 3 Est. Patient 10:55:35 CDT Daniele Mcfadden [facility] CPT-75424 Level 3 Est. Patient 14:03:08 CDT Daniele Mcfadden [facility] CPT-35841 Level 3 Est. Patient 11:26:19 CDT Margarito Kelley MD [facility] CPT-97996 Level 2 Est. Patient 15:32:04 REEL FILM INSPECTOR Daniele Mcfadden [facility] CPT-58285 Level 3 Est. Patient 16:01:26 REEL FILM INSPECTOR Daniele Gaetano Bogdan [facility] CPT-46909 Level 3 Est. Patient 06:37:10 REEL FILM INSPECTOR Daniele Gaetano Bogdan [facility] Procedures Code Procedure Name Date Entry Date Standard Description CPT-84692 Addl Vx - Ix admin via ID IM or jet injects without counseling by physician 14:37:19 CDT CPT-71711 Meningococcal B, recombinant vaccine 14:37:19 CDT 03/05 CPT-73275 First Vx - Ix admin via ID IM or jet injects without counseling by physician 14:37:19 CDT CPT-04785 Menveo Intramuscular Solution Reconstituted 14:37:19 CDT CPT-64566 Meningococcal Conjugate Vacine (Menactra) 11:20:04 CDT CPT-27608 Throat Culture - LAB USE ONLY 12:15:45 REEL FILM INSPECTOR CPT-67398 Shani Flu A/B - LAB USE ONLY 12:15:45 REEL FILM INSPECTOR CPT-89166 Rapid Strep (Reflex throat) - LAB USE ONLY 12:15:45 REEL FILM INSPECTOR CPT-80698 Rapid Strep (Grp A) - LAB USE ONLY 13:06:06 CDT CPT-87246 Abd compl w upright 12:34:39 CDT CPT-71255 Immunization Single Admin 11:38:41 CDT CPT-19966 Fluzone Quadrivalent Intramuscular Suspension 0.5 ML 11: 38:41 CDT CPT-OV Office Visit 14:45:12 REEL FILM INSPECTOR CPT-86881 [employer] inc all organs plus proximal aorta and distal IVC 2012 12:13:02 REEL FILM INSPECTOR CPT-50530 Abd compl w upright 15:12:58 REEL FILM INSPECTOR CPT-44344 Venipuncture Draw Fee 14:38:32 REEL FILM INSPECTOR CPT-08284 Administration single or combination vaccine inc oral 17 :10:04 CDT CPT-65167 Gardasil 17:10:04 CDT CPT-56635 Venipuncture Draw Fee 16:07:54 REEL FILM INSPECTOR CPT-32041 Administration 2+ single or combination vaccines inc oral 17:22:02 CDT CPT-11013 Administration single or combination vaccine inc oral 17 :22:02 CDT CPT-36324 Influenza split virus > age 3 17:22:02 CDT CPT-16034 Gardasil 17:22:02 CDT CPT-05179 Administration 2+ single or combination vaccines inc oral 14:38:31 CDT CPT-39655 Administration single or combination vaccine inc oral 14 :38:31 CDT CPT-04002 Meningococcal Conjugate Vacine (Menactra) 14:38:31 CDT CPT-71808 Gardasil 14:38:31 CDT
--- OUTSIDE RECORDS SUMMARY | 2018-02-15 06:45 | XMS REPORT | Clinical Summary ---
Author Author Admin, Ludmila Organization [facility] Address Unknown Phone Unavailable Allergies, Adverse [...] Brandan BOWMAN Pharyngitis-Acute ICD-462 Inactive Katie Gipson [employer] URI ICD-465.9 Inactive Katie Gipson [employer] Allergic rhinitis ICD-477.9 Inactive Katie Gipson [employer] Acute rhinosinusitis ICD-461.9 Inactive Katie Gipson [employer] Fever ICD-780.60 Inactive Katie Gipsonfredrick [facility] Immunization due ICD-V15.83 Inactive Katie Gipson [employer] Medication List Medication Instructions Start Date Stop Date Generic Name NDC Status Provider Patient Instruction PREDNISONE 10 MG ORAL TABLET 2 TABS BY MOUTH TODAY, THEN 1 TAB BY MOUTH DAYS 2 -5 PREDNISONE 12982876786 Active Daniele Mcfadden DO Active PREDNISONE 20 MG ORAL TABLET two tabs by mouth today, then one tab by mouth days two and three PREDNISONE 17872975874 No Longer Active Whitley Hernandez Active AZITHROMYCIN 250 MG ORAL TABLET 2 po qd x 1 day, then 1 po qd x 4 days 07/24 AZITHROMYCIN 44704164507 No Longer Active Daniele Mcfadden DO Active IRVING-D ALLERGY & CONGESTION 60-120 MG ORAL TABLET EXTENDED RELEASE 12 HOUR 1 tablet twice daily as needed for congestion/allergies FEXOFENADINE-PSEUDOEPHEDRINE 44396693230 Active Holly Sharma Active PREDNISONE 20 MG ORAL TABLET 2 tabs daily for 3 days, 1 tab daily for 3 days, 1/2 tab daily for 2 days start tomorrow 07/31/16 PREDNISONE 48240366037 No Longer Active Jillina Alexandru JOHNSON Active AZITHROMYCIN 250 MG ORAL TABLET 2 po qd x 1 day, then 1 po qd x 4 days 08/30 AZITHROMYCIN 67872797535 No Longer Active Jillina Alexandru JOHNSON Active MUCINEX D 60-600 MG ORAL TABLET EXTENDED RELEASE 12 HOUR 1 po BID PRN Congestion PSEUDOEPHEDRINE-GUAIFENESIN 12925357669 No Longer Active Jessika Nunes APRN Active CEFDINIR 300 MG ORAL CAPSULE 1 po BID x 10 days CEFDINIR 08550815888 No Longer Active Jillina Alexandru JOHNSON Active PREDNISONE 20 MG ORAL TABLET 2 tabs daily for 3 days, 1 tab daily for 3 days, 1/2 tab daily for 2 days PREDNISONE 18487321560 No Longer Active Jillina Frazell ESL TEACHER Active FLUTICASONE PROPIONATE 50 MCG/ACT NASAL SUSPENSION 1 to 2 sprays each nostril daily FLUTICASONE PROPIONATE 43620340928 No Longer Active Jillina Frazell ESL TEACHER Active GUAIFENESIN ER 600 MG ORAL TABLET EXTENDED RELEASE 12 HOUR 1 twice a day as needed for congestion GUAIFENESIN 57328625285 No Longer Active Ezekielllina Jiml ESL TEACHER Active CEFDINIR 300 MG ORAL CAPSULE by mouth twice a day CEFDINIR 54337231825 No Longer Active Jillina Frazell ESL TEACHER Active PREDNISONE 20 MG ORAL TABLET 1 tablet twice daily for 2 days, then 1 tablet once daily for 2 days PREDNISONE 38946506182 No Longer Active Jillina Framarkl ESL TEACHER Active PREDNISONE 20 MG ORAL TABLET 2 tabs daily for 3 days, 1 tab daily for 3 days, 1/2 tab daily for 2 days PREDNISONE 38276916633 No Longer Active Margarito Kelley MD Active IRVING-D ALLERGY & CONGESTION TABLET EXTENDED RELEASE 12 HOUR 1 po bid 05/26 FEXOFENADINE-PSEUDOEPHEDRINE [id number] 71278626962 No Longer Active Margarito Kelley MD Active PREDNISONE 20 MG ORAL TABLET 2 tabs daily for 3 days, 1 tab daily for 3 days, 1/2 tab daily for 2 days PREDNISONE 35870192897 No Longer Active Ezekielllina Alexandru JOHNSON Active CEFDINIR 300 MG ORAL CAPSULE 1 cap by mouth twice a day CEFDINIR 66779595701 No Longer Active Jillina Jiml ESL TEACHER Active E-Z SPACER DEVICE use with proair inhalier every 4 times as need. SPACER/AERO-HOLDING CHAMBERS 11983899374 No Longer Active Jillina Jiml ESL TEACHER Active PROAIR HFA 108 (90 Base) MCG/ACT INHALATION AEROSOL SOLUTION 2 puffs every 4 hours as needed ALBUTEROL SULFATE 04842871053 No Longer Active Ezekielllina Alexandru ONTIVEROSN Active CEFTIN 500 MG ORAL TABLET 1 tablet by mouth twice daily for ten days. CEFUROXIME AXETIL 63423181214 No Longer Active Ezekielllsd Horvath APRN Active PREDNISONE 20 MG ORAL TABLET 2 tabs daily for 3 days, 1 tab daily for 3 days, 1/2 tab daily for 2 days PREDNISONE 39524658732 No Longer Active Margarito Kelley MD Active CEPHALEXIN 500 MG ORAL CAPSULE 1 tablet by mouth three times daily for ten days CEPHALEXIN 70880226601 No Longer Active Renée Adames ALEX Active MEDROL 4 MG ORAL TABLET THERAPY PACK 6 pills on day 1, 5 pills on day 2, 4 pills on day 3, 4 pills on day 4, 2 pills on day 5, 1 pill on day 6 METHYLPREDNISOLONE 62627974359 No Longer Active Annita Mejia MD PhD Active ZITHROMAX Z-MARY 250 MG ORAL TABLET 2 today and then 1 daily for 4 days 03/11 AZITHROMYCIN 94367937893 No Longer Active Annita Mejia MD PhD Active GUAIFENESIN-CODEINE 100-10 MG/5ML ORAL SYRUP 5ml every 4 to 6 hours as needed for cough GUAIFENESIN-CODEINE 06342529044 No Longer Active Annita Mejia MD PhD Active FLONASE 50 MCG/ACT NASAL SUSPENSION 1 spray each nostril am and hs FLUTICASONE PROPIONATE 87103741811 No Longer Active Kendell Coronado MD Active MELOXICAM 15 MG ORAL TABLET 1 po q day for pain with food MELOXICAM 42455039775 No Longer Active Kendell Coronado MD Active HYDROCODONE-ACETAMINOPHEN 5-325 MG ORAL TABLET 1-2 q 4-6 hrs prn pain 20 tabs HYDROCODONE-ACETAMINOPHEN 28597374469 No Longer Active Danilee Mcfadden DO Active PREDNISONE 20 MG ORAL TABLET 1 tablet twice daily for 2 days, then 1 tablet once daily for 2 days PREDNISONE 49736693221 No Longer Active Daniele Mcfadden DO Active PREDNISONE 20 MG ORAL TABLET 1 po bid 2 days, then daily for 2 days PREDNISONE 17902252776 No Longer Active Alexander LOPEZ Active AZITHROMYCIN 250 MG ORAL TABLET 2 po qd x 1 day, then 1 po qd x 4 days 08/05 AZITHROMYCIN 30841846854 No Longer Active Daniele Mcfadden DO Active MUCINEX MAXIMUM STRENGTH TABLET EXTENDED RELEASE 12 HOUR 1 po qd GUAIFENESIN [id number] 38588030740 No Longer Active Daniele Mcfadden DO Active AZITHROMYCIN 250 MG ORAL TABLET 2 po qd x 1 day, then 1 po qd x 4 days 11/26 AZITHROMYCIN 11290500611 No Longer Active Margarito Kelley MD Active MUCINEX MAXIMUM STRENGTH TABLET EXTENDED RELEASE 12 HOUR 1 po qd MUCINEX MAXIMUM STRENGTH TABLET EXTENDED RELEASE 12 HOUR GUAIFENESIN [id number] Inactive PREDNISONE 20 MG ORAL TABLET 1 po bid 2 days, then daily for 2 days PREDNISONE 20 MG ORAL TABLET 141025 PREDNISONE Inactive PREDNISONE 20 MG ORAL TABLET 1 tablet twice daily for 2 days, then 1 tablet once daily for 2 days PREDNISONE 20 MG ORAL TABLET 607312 PREDNISONE Inactive HYDROCODONE-ACETAMINOPHEN 5-325 MG ORAL TABLET 1-2 q 4-6 hrs prn pain 20 tabs HYDROCODONE-ACETAMINOPHEN 5-325 MG ORAL TABLET 981488 HYDROCODONE-ACETAMINOPHEN Inactive MELOXICAM 15 MG ORAL TABLET 1 po q day for pain with food MELOXICAM 15 MG ORAL TABLET 141521 MELOXICAM Inactive FLONASE 50 MCG/ACT NASAL SUSPENSION 1 spray each nostril am and hs FLONASE 50 MCG/ACT NASAL SUSPENSION 1884608 FLUTICASONE PROPIONATE Inactive GUAIFENESIN-CODEINE 100-10 MG/5ML ORAL SYRUP 5ml every 4 to 6 hours as needed for cough GUAIFENESIN-CODEINE 100-10 MG/5ML ORAL SYRUP 149148 GUAIFENESIN-CODEINE Inactive ZITHROMAX Z-MARY 250 MG ORAL TABLET 2 today and then 1 daily for 4 days 03/11 ZITHROMAX Z-MARY 250 MG ORAL TABLET 472386 AZITHROMYCIN Inactive CEFTIN 500 MG ORAL TABLET 1 tablet by mouth twice daily for ten days. CEFTIN 500 MG ORAL TABLET 038188 CEFUROXIME AXETIL Inactive PROAIR HFA 108 (90 [...] CONGESTION TABLET EXTENDED RELEASE 12 HOUR FEXOFENADINE-PSEUDOEPHEDRINE [id number] Inactive PREDNISONE 20 MG ORAL TABLET 1 tablet twice daily for 2 days, then 1 tablet once daily for 2 days PREDNISONE 20 MG ORAL TABLET 471271 PREDNISONE Inactive GUAIFENESIN ER 600 MG ORAL TABLET EXTENDED RELEASE 12 HOUR 1 twice a day as needed for congestion GUAIFENESIN ER 600 MG ORAL TABLET EXTENDED RELEASE 12 HOUR GUAIFENESIN Inactive FLUTICASONE PROPIONATE 50 MCG/ACT NASAL SUSPENSION 1 to 2 sprays each nostril daily FLUTICASONE PROPIONATE 50 MCG/ACT NASAL SUSPENSION 8703362 FLUTICASONE PROPIONATE Inactive MUCINEX D 60-600 MG ORAL TABLET EXTENDED RELEASE 12 HOUR 1 po BID PRN Congestion MUCINEX D 60-600 MG ORAL TABLET EXTENDED RELEASE 12 HOUR PSEUDOEPHEDRINE-GUAIFENESIN Inactive PREDNISONE 20 MG ORAL TABLET two tabs by mouth today, then one tab by mouth days two and three PREDNISONE 20 MG ORAL TABLET 048765 PREDNISONE Inactive AZITHROMYCIN 250 MG ORAL TABLET 2 po qd x 1 day, then 1 po qd x 4 days 11/26 AZITHROMYCIN 250 MG ORAL TABLET 026729 AZITHROMYCIN Inactive AZITHROMYCIN 250 MG ORAL TABLET 2 po qd x 1 day, then 1 po qd x 4 days 08/05 AZITHROMYCIN 250 MG ORAL TABLET 282631 AZITHROMYCIN Inactive MEDROL 4 MG ORAL TABLET THERAPY PACK 6 pills on day 1, 5 pills on day 2, 4 pills on day 3, 4 pills on day 4, 2 pills on day 5, 1 pill on day 6 MEDROL 4 MG ORAL TABLET THERAPY PACK 839188 METHYLPREDNISOLONE Inactive CEPHALEXIN 500 MG ORAL CAPSULE 1 tablet by mouth three times daily for ten days CEPHALEXIN 500 MG ORAL CAPSULE 244734 CEPHALEXIN Inactive PREDNISONE 20 MG ORAL TABLET 2 tabs daily for 3 days, 1 tab daily for 3 days, 1/2 tab daily for 2 days PREDNISONE 20 MG ORAL TABLET 258953 PREDNISONE Inactive CEFDINIR 300 MG ORAL CAPSULE 1 cap by mouth twice a day CEFDINIR 300 MG ORAL CAPSULE 850960 CEFDINIR Inactive PREDNISONE 20 MG ORAL TABLET 2 tabs daily for 3 days, 1 tab daily for 3 days, 1/2 tab daily for 2 days PREDNISONE 20 MG ORAL TABLET 674111 PREDNISONE Inactive PREDNISONE 20 MG ORAL TABLET 2 tabs daily for 3 days, 1 tab daily for 3 days, 1/2 tab daily for 2 days PREDNISONE 20 MG ORAL TABLET 710149 PREDNISONE Inactive CEFDINIR 300 MG ORAL CAPSULE by mouth twice a day CEFDINIR 300 MG ORAL CAPSULE 298452 CEFDINIR Inactive PREDNISONE 20 MG ORAL TABLET 2 tabs daily for 3 days, 1 tab daily for 3 days, 1/2 tab daily for 2 days PREDNISONE 20 MG ORAL TABLET 994621 PREDNISONE Inactive CEFDINIR 300 MG ORAL CAPSULE 1 po BID x 10 days CEFDINIR 300 MG ORAL CAPSULE 120827 CEFDINIR Inactive AZITHROMYCIN 250 MG ORAL TABLET 2 po qd x 1 day, then 1 po qd x 4 days 08/30 AZITHROMYCIN 250 MG ORAL TABLET 637496 AZITHROMYCIN Inactive PREDNISONE 20 MG ORAL TABLET 2 tabs daily for 3 days, 1 tab daily for 3 days, 1/2 tab daily for 2 days start tomorrow 07/31/16 PREDNISONE 20 MG ORAL TABLET 580698 PREDNISONE Inactive AZITHROMYCIN 250 MG ORAL TABLET 2 po qd x 1 day, then 1 po qd x 4 days 07/24 AZITHROMYCIN 250 MG ORAL TABLET 615057 AZITHROMYCIN Inactive Immunizations Vaccine Administration Date Value Standard Description Human Papillomavirus vaccine (Gardasil) #2, (HPV #2) Gardasil [ CVX62] human papilloma virus vaccine, quadrivalent Seasonal influenza vaccine, injectable, containing preservative, for > 3 years old (Afluria, FluLaval, Fluzone, Fluvirin, Fluarix, Agriflu(>=18 yo)) Fluzone (>3 yrs.) [[id number]] Influenza, seasonal, injectable Human Papillomavirus Vaccine (Gardasil) #1 Given (HPV #1) Gardasil [CVX62] human papilloma virus vaccine, quadrivalent hepatitis A immunization #2 Havrix-Pedi hepatitis A vaccine, unspecified formulation Boostrix (Tetanus toxoid, reduced diphtheria toxoid and acellular pertussis vaccine, adsorbed), booster Boostrix [[id number]] tetanus toxoid, reduced diphtheria toxoid, and acellular [...] Negative;Positive Encounters Code Encounter Date Provider Facility CPT-22845 Level 3 Est. Patient 16:03:55 MEDICAL SCHEDULER Whitley Quiroz [facility]-70096 Level 3 Est. Patient 17:42:49 MEDICAL SCHEDULER Whitley Quiroz [facility]-30882 Level 3 Est. Patient 10:49:47 MEDICAL SCHEDULER Griselda Horvath [facility]-00953 Level 3 Est. Patient 08:43:59 MEDICAL SCHEDULER Jessika Nunes [facility] CPT-56532 Level 3 Est. Patient 09:05:19 MEDICAL SCHEDULER Griselda Horvath [facility] CPT-79353 Level 3 Est. Patient 15:45:46 CDT Griselda Horvath [facility]-54238 Level 3 Est. Patient 14:15:52 CDT Daniele Mcfadden [facility]-13852 Level 3 Est. Patient 13:57:19 MEDICAL SCHEDULER Margarito Kelley MD [facility]-05455 Level 3 Est. Patient 09:16:05 MEDICAL SCHEDULER Margarito Kelley MD [facility]-47727 Level 3 Est. Patient 15:37:06 MEDICAL SCHEDULER Daniele Mcfadden [facility] CPT-20761 Level 3 Est. Patient 11:56:34 MEDICAL SCHEDULER Renée Adames [facility] CPT-16236 Level 3 Est. Patient 12:19:42 CDT Daniele Mcfadden [facility] CPT-54195 Level 3 Est. Patient 11:08:45 CDT Annita Mejia MD PhD [facility] CPT-65291 Level 3 Est. Patient 12:00:17 CDT Kendell Coronado MD [facility]-60776 Level 3 Est. Patient 12:27:25 CDT Daniele Mcfadden [facility] CPT-70162 Level 3 Est. Patient 18:45:11 MEDICAL SCHEDULER Daniele Mcfadden [facility] CPT-92248 Level 3 Est. Patient 10:12:24 MEDICAL SCHEDULER Daniele Mcfadden [facility] CPT-25025 Level 3 Est. Patient 14:35:11 MEDICAL SCHEDULER Daniele Mcfadden [facility] CPT-64217 Level 3 Est. Patient 14:11:04 CDT Daniele Mcfadden [facility] CPT-41304 Level 3 Est. Patient 10:52:13 CDT Alexander Estrada [facility] CPT-20249 Level 3 Est. Patient 11:01:08 MEDICAL SCHEDULER Daniele Mcfadden [facility] CPT-73456 Level 3 Est. Patient 10:55:35 CDT Daniele Mcfadden [facility] CPT-55342 Level 3 Est. Patient 14:03:08 CDT Daniele Mcfadden [facility] CPT-16004 Level 3 Est. Patient 11:26:19 CDT Margarito Kelley MD [facility] CPT-80465 Level 2 Est. Patient 15:32:04 MEDICAL SCHEDULER Daniele Mcfadden [facility] CPT-77099 Level 3 Est. Patient 16:01:26 MEDICAL SCHEDULER Daniele Gaetano Bogdan [facility] CPT-86469 Level 3 Est. Patient 06:37:10 MEDICAL SCHEDULER Daniele Gaetano Bogdan [facility] Procedures Code Procedure Name Date Entry Date Standard Description CPT-70336 Addl Vx - Ix admin via ID IM or jet injects without counseling by physician 14:37:19 CDT CPT-00244 Meningococcal B, recombinant vaccine 14:37:19 CDT 03/05 CPT-19960 First Vx - Ix admin via ID IM or jet injects without counseling by physician 14:37:19 CDT CPT-80268 Menveo Intramuscular Solution Reconstituted 14:37:19 CDT CPT-53749 Meningococcal Conjugate Vacine (Menactra) 11:20:04 CDT CPT-72598 Throat Culture - LAB USE ONLY 12:15:45 MEDICAL SCHEDULER CPT-74985 Shani Flu A/B - LAB USE ONLY 12:15:45 MEDICAL SCHEDULER CPT-28607 Rapid Strep (Reflex throat) - LAB USE ONLY 12:15:45 MEDICAL SCHEDULER CPT-69635 Rapid Strep (Grp A) - LAB USE ONLY 13:06:06 CDT CPT-87280 Abd compl w upright 12:34:39 CDT CPT-27135 Immunization Single Admin 11:38:41 CDT CPT-19513 Fluzone Quadrivalent Intramuscular Suspension 0.5 ML 11: 38:41 CDT CPT-OV Office Visit 14:45:12 MEDICAL SCHEDULER CPT-59288 [employer]d [employer] inc all organs plus proximal aorta and distal IVC 2012 12:13:02 MEDICAL SCHEDULER CPT-50993 Abd compl w upright 15:12:58 MEDICAL SCHEDULER CPT-41281 Venipuncture Draw Fee 14:38:32 MEDICAL SCHEDULER CPT-79562 Administration single or combination vaccine inc oral 17 :10:04 CDT CPT-15592 Gardasil 17:10:04 CDT CPT-55721 Venipuncture Draw Fee 16:07:54 MEDICAL SCHEDULER CPT-48390 Administration 2+ single or combination vaccines inc oral 17:22:02 CDT CPT-15852 Administration single or combination vaccine inc oral 17 :22:02 CDT CPT-13637 Influenza split virus > age 3 17:22:02 CDT CPT-33024 Gardasil 17:22:02 CDT CPT-94396 Administration 2+ single or combination vaccines inc oral 14:38:31 CDT CPT-57110 Administration single or combination vaccine inc oral 14 :38:31 CDT CPT-41791 Meningococcal Conjugate Vacine (Menactra) 14:38:31 CDT CPT-76870 Gardasil 14:38:31 CDT
--- OUTSIDE RECORDS SUMMARY | 2018-02-15 06:45 | XMS REPORT | Clinical Summary ---
Author Author Admin, [employer] Address Unknown Phone Unavailable Allergies, Adverse Reactions, [...] Acute sinusitis, unspecified Fatigue 780.79 Resolved Margarito eKlley MD Other malaise and fatigue Vaccination against [...] unspecified site Sinusitis 473.9 Active Griselda Horvath [employer] Unspecified sinusitis (chronic) Eustachian tube dysfunction, right 381.81 Active Margarito Kelley MD Dysfunction of Eustachian tube Pharyngitis-Acute 462 Active Daniele Mcfadden DO Acute pharyngitis URI 465.9 Active Griselda Horvath [employer] Acute upper respiratory infections of unspecified site Allergic rhinitis 477.9 Active Jessika Nunes [employer] Allergic rhinitis, cause unspecified Acute rhinosinusitis 461.9 Active Jessika Nunes [employer] Acute sinusitis, unspecified Fever 780.60 Active Griselda [...] Generic Name NDC Status Provider Patient Instruction IRVING-D ALLERGY & CONGESTION 60-120 MG ORAL [id number] 1 tablet twice daily as needed for congestion/allergies FEXOFENADINE-PSEUDOEPHEDRINE [id number] Active Holly Sharma Active PREDNISONE 20 MG TAB 2 tabs daily for 3 days, 1 tab daily for 3 days, 1/2 tab daily for 2 days start tomorrow 07/31/16 PREDNISONE [id number] No Longer Active Jillina Frazell [employer] Active AZITHROMYCIN 250 MG TABS 2 po qd x 1 day, then 1 po qd x 4 days AZITHROMYCIN [id number] No Longer Active Jillina Frazell [employer] Active MUCINEX D 60-600 MG [id number] 1 po BID PRN Congestion PSEUDOEPHEDRINE-GUAIFENESIN 46722511031 No Longer Active Jessika Nunes APRN Active CEFDINIR 300 MG CAPS 1 po BID x 10 days CEFDINIR 43941775367 No Longer Active Jillina Frazell [employer] Active PREDNISONE 20 MG TAB 2 tabs daily for 3 days, 1 tab daily for 3 days, 1/2 tab daily for 2 days PREDNISONE 91252479687 No Longer Active Jillina Frazell [employer] Active FLUTICASONE PROPIONATE 50 MCG/ACT SUSP 1 to 2 sprays each nostril daily 03/20 FLUTICASONE PROPIONATE 89885834705 No Longer Active Jillina Frazell [employer] Active GUAIFENESIN 600 MG [id number] 1 twice a day as needed for congestion GUAIFENESIN 50450740276 No Longer Active Jillina Frazell [employer] Active CEFDINIR 300 MG CAPS by mouth twice a day CEFDINIR 64570794141 No Longer Active Jillina Frazell [employer] Active PREDNISONE 20 MG TAB 1 tablet twice daily for 2 days, then 1 tablet once daily for 2 days PREDNISONE 70042493152 No Longer Active Jillina Frazell [employer] Active PREDNISONE 20 MG TAB 2 tabs daily for 3 days, 1 tab daily for 3 days, 1/2 tab daily for 2 days PREDNISONE 59007782803 No Longer Active Margarito Kelley MD Active IRVING-D ALLERGY & CONGESTION [id number] 1 po bid FEXOFENADINE-PSEUDOEPHEDRINE [id number] 92809696027 No Longer Active Margarito Kelley MD Active PREDNISONE 20 MG TAB 2 tabs daily for 3 days, 1 tab daily for 3 days, 1/2 tab daily for 2 days PREDNISONE 77172302789 No Longer Active Jillina Frazell [employer] Active CEFDINIR 300 MG CAPS 1 cap by mouth twice a day CEFDINIR 06805469635 No Longer Active Jillina Frazell [employer] Active E-Z SPACER ERIBERTO use with proair inhalier every 4 times as need. SPACER/AERO-HOLDING CHAMBERS 34469833973 No Longer Active Jillina Frazell [employer] Active PROAIR HFA 108 (90 BASE) MCG/ACT AERS 2 puffs every 4 hours as needed 2014 ALBUTEROL SULFATE 44768559951 No Longer Active Jillina Frazell [employer] Active CEFTIN 500 MG TAB 1 tablet by mouth twice daily for ten days. CEFUROXIME AXETIL 68279009330 No Longer Active Jillina Frazell [employer] Active PREDNISONE 20 MG TAB 2 tabs daily for 3 days, 1 tab daily for 3 days, 1/2 tab daily for 2 days PREDNISONE 97075654571 No Longer Active Margarito Kelley MD Active CEPHALEXIN 500 MG CAPS 1 tablet by mouth three times daily for ten days 06/25 CEPHALEXIN 17935988977 No Longer Active Renée Adames APRN Active MEDROL (MARY) 4 MG TABS 6 pills on day 1, 5 pills on day 2, 4 pills on day 3, 4 pills on day 4, 2 pills on day 5, 1 pill on day 6 METHYLPREDNISOLONE 52211593919 No Longer Active Annita Mejia MD PhD Active ZITHROMAX Z-MARY 250 MG TABS 2 today and then 1 daily for 4 days AZITHROMYCIN 31307328103 No Longer Active Annita Mejia MD PhD Active GUAIFENESIN-CODEINE 100-10 MG/5ML SYRP 5ml every 4 to 6 hours as needed for cough GUAIFENESIN-CODEINE 31293620321 No Longer Active Annita Mejia MD PhD Active FLONASE 50 MCG/ACT SUSP 1 spray each nostril am and hs FLUTICASONE PROPIONATE 65032340212 No Longer Active Kendell Coronado MD Active MELOXICAM 15 MG TABS 1 po q day for pain with food MELOXICAM 26004598892 No Longer Active Kendell Coronado MD Active HYDROCODONE-ACETAMINOPHEN 5-325 MG TABS 1-2 q 4-6 hrs prn pain 20 tabs 07/04 HYDROCODONE-ACETAMINOPHEN 94949967010 No Longer Active Daniele Mcfadden DO Active PREDNISONE 20 MG TAB 1 tablet twice daily for 2 days, then 1 tablet once daily for 2 days PREDNISONE 72528526738 No Longer Active Daniele Mcfadden DO Active PREDNISONE 20 MG TAB 1 po bid 2 days, then daily for 2 days 12/27 PREDNISONE 07155083889 No Longer Active Alexander LOPEZ Active AZITHROMYCIN 250 MG TABS 2 po qd x 1 day, then 1 po qd x 4 days AZITHROMYCIN 46895244390 No Longer Active Daniele Mcfadden DO Active MUCINEX MAXIMUM STRENGTH [id number] 1 po qd GUAIFENESIN XR12H- TAB 67469491850 No Longer Active Daniele Mcfadden DO Active AZITHROMYCIN 250 MG TABS 2 po qd x 1 day, then 1 po qd x 4 days AZITHROMYCIN 62617819414 No Longer Active Margarito Kelley MD Active MUCINEX MAXIMUM STRENGTH [id number] 1 po qd MUCINEX MAXIMUM STRENGTH [id number] GUAIFENESIN PR60D-SGS Inactive PREDNISONE 20 MG TAB 1 po bid 2 days, then daily for 2 days 12/27 PREDNISONE 20 MG TAB 951133 PREDNISONE Inactive PREDNISONE 20 MG TAB 1 tablet twice daily for 2 days, then 1 tablet once daily for 2 days PREDNISONE 20 MG TAB 843523 PREDNISONE Inactive HYDROCODONE-ACETAMINOPHEN 5-325 MG TABS 1-2 q 4-6 hrs prn pain 20 tabs 07/04 HYDROCODONE-ACETAMINOPHEN 5-325 MG TABS 520648 HYDROCODONE- ACETAMINOPHEN Inactive MELOXICAM 15 MG TABS 1 po q day for pain with food MELOXICAM 15 MG TABS 987372 MELOXICAM Inactive FLONASE 50 MCG/ACT SUSP 1 spray each nostril am and hs FLONASE 50 MCG/ACT SUSP 8196179 FLUTICASONE PROPIONATE Inactive GUAIFENESIN-CODEINE 100-10 MG/5ML SYRP 5ml every 4 to 6 hours as needed for cough GUAIFENESIN-CODEINE 100-10 MG/5ML SYRP 578827 GUAIFENESIN-CODEINE Inactive ZITHROMAX Z-MARY 250 MG TABS 2 today and then 1 daily for 4 days ZITHROMAX Z-MARY 250 MG TABS 1132052 AZITHROMYCIN Inactive CEFTIN 500 MG TAB 1 tablet by mouth twice daily for ten days. CEFTIN 500 MG TAB 504456 CEFUROXIME AXETIL Inactive PROAIR HFA 108 (90 BASE) MCG/ACT AERS 2 puffs every 4 hours as needed 2014 PROAIR HFA 108 (90 BASE) MCG/ACT AERS ALBUTEROL SULFATE Inactive E-Z SPACER ERIBERTO use with proair inhalier every 4 times as need. E-Z SPACER ERIBERTO SPACER/AERO-HOLDING CHAMBERS Inactive IRVING-D ALLERGY & CONGESTION [id number] 1 po bid IRVING-D ALLERGY & CONGESTION [id number] FEXOFENADINE-PSEUDOEPHEDRINE XR12H- TAB Inactive PREDNISONE 20 MG TAB 1 tablet twice daily for 2 days, then 1 tablet once daily for 2 days PREDNISONE 20 MG TAB 441171 PREDNISONE Inactive GUAIFENESIN 600 MG [id number] 1 twice a day as needed for congestion GUAIFENESIN 600 MG [id number] GUAIFENESIN Inactive FLUTICASONE PROPIONATE 50 MCG/ACT SUSP 1 to 2 sprays each nostril daily 03/20 FLUTICASONE PROPIONATE 50 MCG/ACT SUSP 0029762 FLUTICASONE PROPIONATE Inactive MUCINEX D 60-600 MG AR99L-BDH 1 po BID PRN Congestion MUCINEX D 60-600 MG [id number] PSEUDOEPHEDRINE-GUAIFENESIN Inactive AZITHROMYCIN 250 MG TABS 2 po qd x 1 day, then 1 po qd x 4 days AZITHROMYCIN 250 MG TABS 6599048 AZITHROMYCIN Inactive AZITHROMYCIN 250 MG TABS 2 po qd x 1 day, then 1 po qd x 4 days AZITHROMYCIN 250 MG TABS 4711793 AZITHROMYCIN Inactive MEDROL (MARY) 4 MG TABS 6 pills on day 1, 5 pills on day 2, 4 pills on day 3, 4 pills on day 4, 2 pills on day 5, 1 pill on day 6 MEDROL (MARY) 4 MG TABS 096399 METHYLPREDNISOLONE Inactive CEPHALEXIN 500 MG CAPS 1 tablet by mouth three times daily for ten days 06/25 CEPHALEXIN 500 MG CAPS 402291 CEPHALEXIN Inactive PREDNISONE 20 MG TAB 2 tabs daily for 3 days, 1 tab daily for 3 days, 1/2 tab daily for 2 days PREDNISONE 20 MG TAB 464523 PREDNISONE Inactive CEFDINIR 300 MG CAPS 1 cap by mouth twice a day CEFDINIR 300 MG CAPS 374071 CEFDINIR Inactive PREDNISONE 20 MG TAB 2 tabs daily for 3 days, 1 tab daily for 3 days, 1/2 tab daily for 2 days PREDNISONE 20 MG TAB 239631 PREDNISONE Inactive PREDNISONE 20 MG TAB 2 tabs daily for 3 days, 1 tab daily for 3 days, 1/2 tab daily for 2 days PREDNISONE 20 MG TAB 904503 PREDNISONE Inactive CEFDINIR 300 MG CAPS by mouth twice a day CEFDINIR 300 MG CAPS 344248 CEFDINIR Inactive PREDNISONE 20 MG TAB 2 tabs daily for 3 days, 1 tab daily for 3 days, 1/2 tab daily for 2 days PREDNISONE 20 MG TAB 334392 PREDNISONE Inactive CEFDINIR 300 MG CAPS 1 po BID x 10 days CEFDINIR 300 MG CAPS 20021026 CEFDINIR Inactive AZITHROMYCIN 250 MG TABS 2 po qd x 1 day, then 1 po qd x 4 days AZITHROMYCIN 250 MG TABS 2182999 AZITHROMYCIN Inactive PREDNISONE 20 MG TAB 2 tabs daily for 3 days, 1 tab daily for 3 days, 1/2 tab daily for 2 days start tomorrow 07/31/16 PREDNISONE 20 MG TAB 253191 PREDNISONE Inactive Immunizations Vaccine Administration Date Value Standard Description Human Papillomavirus vaccine (Gardasil) #2, (HPV #2) Gardasil [ CVX62] human papilloma virus vaccine, quadrivalent Seasonal influenza vaccine, injectable, containing preservative, for > 3 years old (Afluria, FluLaval, Fluzone, Fluvirin, Fluarix, Agriflu(>=18 yo)) Fluzone (>3 yrs.) [[id number]] Influenza, seasonal, injectable Human Papillomavirus Vaccine (Gardasil) #1 Given (HPV #1) Gardasil [CVX62] human papilloma virus vaccine, quadrivalent hepatitis A immunization #2 Havrix-Pedi hepatitis A vaccine, unspecified formulation Boostrix (Tetanus toxoid, reduced diphtheria toxoid and acellular pertussis vaccine, adsorbed), booster Boostrix [[id number]] tetanus toxoid, reduced diphtheria toxoid, and acellular [...] temperature weight E&M 210 [lb_av] Weight Measured Diagnostic Results Date Name Value Unit Range Description Lab Report: SHANI INFLUENZA A/B, RapidStrep Rflx/Cx - Lab Microbial identification kit, rapid strep method Negative-Throat Culture to Follow Negative Lab Report: SHANI INFLUENZA A/B, RapidStrep Rflx/Cx - Toxicology rapid flu test Negative Negative;Positive Encounters Code Encounter Date Provider Facility CPT-32863 Level 3 Est. 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 [place] CPT-26853 Level 3 Est. Patient 08:43:59 DIE STORAGE CLERK Jessika Nunes [facility] [place] CPT-19111 Level 3 Est. Patient 09:05:19 DIE STORAGE CLERK Griselda Horvath [facility] [place] CPT-79711 Level 3 Est. Patient 15:45:46 CDT Griselda Horvath [facility] [place] CPT-05226 Level 3 Est. Patient 14:15:52 CDT Daniele Mcfadden DO [facility] CPT-74699 Level 3 Est. Patient 13:57:19 DIE STORAGE CLERK Margarito Kelley MD [facility] CPT-22540 Level 3 Est. Patient 09:16:05 DIE STORAGE CLERK Margarito Kelley MD [facility] CPT-71963 Level 3 Est. Patient 15:37:06 DIE STORAGE CLERK Daniele Mcfadden [facility] CPT-63469 Level 3 Est. Patient 11:56:34 DIE STORAGE CLERK Renée Adames ALEX [facility] CPT-72848 Level 3 Est. Patient 12:19:42 CDT Daniele Mcfadden [facility] CPT-12958 Level 3 Est. Patient 11:08:45 CDT Annita Mejia MD PhD [facility] CPT-90268 Level 3 Est. Patient 12:00:17 CDT Kendell Coronado MD [facility] CPT-08909 Level 3 Est. Patient 12:27:25 CDT Daniele Mcfadden [facility] CPT-56513 Level 3 Est. Patient 18:45:11 DIE STORAGE CLERK Daniele Mcfadden [facility] CPT-23110 Level 3 Est. Patient 10:12:24 DIE STORAGE CLERK Daniele Mcfadden [facility] CPT-89823 Level 3 Est. Patient 14:35:11 DIE STORAGE CLERK Daniele Mcfadden [facility] CPT-41841 Level 3 Est. Patient 14:11:04 CDT Daniele Mcfadden DO [facility] CPT-63732 Level 3 Est. Patient 10:52:13 CDT Alexander LOPEZ [facility] CPT-45975 Level 3 Est. Patient 11:01:08 DIE STORAGE CLERK Daniele Mcfadden [facility] CPT-38675 Level 3 Est. Patient 10:55:35 CDT Daniele Mcfadden [facility] CPT-13973 Level 3 Est. Patient 14:03:08 CDT Daniele Mcfadden [facility] CPT-35977 Level 3 Est. Patient 11:26:19 CDT Margarito Kelley MD [facility] CPT-09521 Level 2 Est. Patient 15:32:04 DIE STORAGE CLERK Daniele Mcfadden [facility] CPT-03685 Level 3 Est. Patient 16:01:26 DIE STORAGE CLERK Daniele Mcfadden [facility] CPT-06946 Level 3 Est. Patient 06:37:10 DIE STORAGE CLERK Daniele Salter Bogdan [facility] Procedures Code Procedure Name Date Entry Date Standard Description CPT-40510 Addl Vx - Ix admin via ID IM or jet injects without counseling by physician 14:37:19 CDT CPT-73891 Meningococcal B, recombinant vaccine 14:37:19 CDT 03/05 CPT-41697 First Vx - Ix admin via ID IM or jet injects without counseling by physician 14:37:19 CDT CPT-69749 Menveo Intramuscular Solution Reconstituted 14:37:19 CDT CPT-28611 Meningococcal Conjugate Vacine (Menactra) 11:20:04 CDT CPT-38315 Throat Culture - LAB USE ONLY 12:15:45 DIE STORAGE CLERK CPT-19030 Shani Flu A/B - LAB USE ONLY 12:15:45 DIE STORAGE CLERK CPT-11716 Rapid Strep (Reflex throat) - LAB USE ONLY 12:15:45 DIE STORAGE CLERK CPT-18880 Rapid Strep (Grp A) - LAB USE ONLY 13:06:06 CDT CPT-89704 Abd compl w upright 12:34:39 CDT CPT-69025 Immunization Single Admin 11:38:41 CDT CPT-12932 Fluzone Quadrivalent Intramuscular Suspension 0.5 ML 11: 38:41 CDT CPT-OV Office Visit 14:45:12 DIE STORAGE CLERK CPT-48054 [employer] inc all organs plus proximal aorta and distal IVC 2012 12:13:02 DIE STORAGE CLERK CPT-42978 Abd compl w upright 15:12:58 DIE STORAGE CLERK CPT-77359 Venipuncture Draw Fee 14:38:32 DIE STORAGE CLERK CPT-46271 Administration single or combination vaccine inc oral 17 :10:04 CDT CPT-27766 Gardasil 17:10:04 CDT CPT-06188 Venipuncture Draw Fee 16:07:54 DIE STORAGE CLERK CPT-72221 Administration 2+ single or combination vaccines inc oral 17:22:02 CDT CPT-03585 Administration single or combination vaccine inc oral 17 :22:02 CDT CPT-86904 Influenza split virus > age 3 17:22:02 CDT CPT-64319 Gardasil 17:22:02 CDT CPT-19965 Administration 2+ single or combination vaccines inc oral 14:38:31 CDT CPT-36131 Administration single or combination vaccine inc oral 14 :38:31 CDT CPT-87747 Meningococcal Conjugate Vacine (Menactra) 14:38:31 CDT CPT-75542 Gardasil 14:38:31 CDT
--- OUTSIDE RECORDS SUMMARY | 2018-02-15 06:46 | XMS REPORT | Clinical Summary ---
Author Author Admin, OLEG Organization [employer] Address Unknown Phone Unavailable Allergies, Adverse Reactions, [...] unspecified site Sinusitis 473.9 Active Griselda Horvath [employer] Unspecified sinusitis (chronic) Eustachian tube dysfunction, right 381.81 Active Margarito Kelley MD Dysfunction of Eustachian tube Pharyngitis-Acute 462 Active Daniele Mcfadden DO Acute pharyngitis URI 465.9 Active Griselda Horvath [employer] Acute upper respiratory infections of unspecified site Allergic rhinitis 477.9 Active Jessika Nunes [employer] Allergic rhinitis, cause unspecified Acute rhinosinusitis 461.9 Active Jessika Nunes [employer] Acute sinusitis, unspecified Fever 780.60 Active Griselda [...] for 2 days start tomorrow 07/31/16 PREDNISONE [id number] No Longer Active Jillina Frazell [employer] Active AZITHROMYCIN 250 MG TABS 2 po qd x 1 day, then 1 po qd x 4 days AZITHROMYCIN 03288233191 No Longer Active Jillina Frazell [employer] Active MUCINEX D 60-600 MG [id number] 1 po BID PRN Congestion PSEUDOEPHEDRINE-GUAIFENESIN 18499036098 No Longer Active Jessika Camuy [employer] Active CEFDINIR 300 MG CAPS 1 po BID x 10 days CEFDINIR 46462888613 No Longer Active Jillina Frazell [employer] Active PREDNISONE 20 MG TAB 2 tabs daily for 3 days, 1 tab daily for 3 days, 1/2 tab daily for 2 days PREDNISONE 44175561552 No Longer Active Jillina Frazell [employer] Active FLUTICASONE PROPIONATE 50 MCG/ACT SUSP 1 to 2 sprays each nostril daily 03/20 FLUTICASONE PROPIONATE 45361308196 No Longer Active Jillina Frazell [employer] Active GUAIFENESIN 600 MG [id number] 1 twice a day as needed for congestion GUAIFENESIN 97016071699 No Longer Active Jillina Frazell [employer] Active CEFDINIR 300 MG CAPS by mouth twice a day CEFDINIR 67512682262 No Longer Active Jillina Frazell [employer] Active PREDNISONE 20 MG TAB 1 tablet twice daily for 2 days, then 1 tablet once daily for 2 days PREDNISONE 30841333378 No Longer Active Jillina Frazell [employer] Active PREDNISONE 20 MG TAB 2 tabs daily for 3 days, 1 tab daily for 3 days, 1/2 tab daily for 2 days PREDNISONE 42347357180 No Longer Active Margarito Kelley MD Active IRVING-D ALLERGY & CONGESTION [id number] 1 po bid FEXOFENADINE-PSEUDOEPHEDRINE [id number] 02812169387 No Longer Active Margarito Kelley MD Active PREDNISONE 20 MG TAB 2 tabs daily for 3 days, 1 tab daily for 3 days, 1/2 tab daily for 2 days PREDNISONE 48698322229 No Longer Active Jillina Frazell [employer] Active CEFDINIR 300 MG CAPS 1 cap by mouth twice a day CEFDINIR 69051981365 No Longer Active Jillina Frazell [employer] Active E-Z SPACER ERIBERTO use with proair inhalier every 4 times as need. SPACER/AERO-HOLDING CHAMBERS 36458390654 No Longer Active Jillina Frazell [employer] Active PROAIR HFA 108 (90 BASE) MCG/ACT AERS 2 puffs every 4 hours as needed 2014 ALBUTEROL SULFATE 22278558903 No Longer Active Jillina Frazell [employer] Active CEFTIN 500 MG TAB 1 tablet by mouth twice daily for ten days. CEFUROXIME AXETIL 01699519831 No Longer Active Jillina Frazell [employer] Active PREDNISONE 20 MG TAB 2 tabs daily for 3 days, 1 tab daily for 3 days, 1/2 tab daily for 2 days PREDNISONE 02122939537 No Longer Active Margarito Kelley MD Active CEPHALEXIN 500 MG CAPS 1 tablet by mouth three times daily for ten days 06/25 CEPHALEXIN 78177578310 No Longer Active Renée Adames APRN Active MEDROL (MARY) 4 MG TABS 6 pills on day 1, 5 pills on day 2, 4 pills on day 3, 4 pills on day 4, 2 pills on day 5, 1 pill on day 6 METHYLPREDNISOLONE 26107043955 No Longer Active Annita Mejia MD PhD Active ZITHROMAX Z-MARY 250 MG TABS 2 today and then 1 daily for 4 days AZITHROMYCIN 64731515594 No Longer Active Annita Mejia MD PhD Active GUAIFENESIN-CODEINE 100-10 MG/5ML SYRP 5ml every 4 to 6 hours as needed for cough GUAIFENESIN-CODEINE 35040923662 No Longer Active Annita Mejia MD PhD Active FLONASE 50 MCG/ACT SUSP 1 spray each nostril am and hs FLUTICASONE PROPIONATE 97062493541 No Longer Active Kendell Coronado MD Active MELOXICAM 15 MG TABS 1 po q day for pain with food MELOXICAM 34773268369 No Longer Active Kendell Coronado MD Active HYDROCODONE-ACETAMINOPHEN 5-325 MG TABS 1-2 q 4-6 hrs prn pain 20 tabs 07/04 HYDROCODONE-ACETAMINOPHEN 17184139779 No Longer Active Daniele Mcfadden DO Active PREDNISONE 20 MG TAB 1 tablet twice daily for 2 days, then 1 tablet once daily for 2 days PREDNISONE 01816559942 No Longer Active Daniele Mcfadden DO Active PREDNISONE 20 MG TAB 1 po bid 2 days, then daily for 2 days 12/27 PREDNISONE 17338427201 No Longer Active Alexander LOPEZ Active AZITHROMYCIN 250 MG TABS 2 po qd x 1 day, then 1 po qd x 4 days AZITHROMYCIN 60132063321 No Longer Active Daniele Mcfadden DO Active MUCINEX MAXIMUM STRENGTH [id number] 1 po qd GUAIFENESIN XR12H- TAB 98075298477 No Longer Active Daniele Mcfadden DO Active AZITHROMYCIN 250 MG TABS 2 po qd x 1 day, then 1 po qd x 4 days AZITHROMYCIN 60134752529 No Longer Active Margarito Kelley MD Active MUCINEX MAXIMUM STRENGTH [id number] 1 po qd MUCINEX MAXIMUM STRENGTH [id number] GUAIFENESIN DG80A-HYS Inactive PREDNISONE 20 MG TAB 1 po bid 2 days, then daily for 2 days 12/27 PREDNISONE 20 MG TAB 897038 PREDNISONE Inactive PREDNISONE 20 MG TAB 1 tablet twice daily for 2 days, then 1 tablet once daily for 2 days PREDNISONE 20 MG TAB 925725 PREDNISONE Inactive HYDROCODONE-ACETAMINOPHEN 5-325 MG TABS 1-2 q 4-6 hrs prn pain 20 tabs 07/04 HYDROCODONE-ACETAMINOPHEN 5-325 MG TABS 168056 HYDROCODONE- ACETAMINOPHEN Inactive MELOXICAM 15 MG TABS 1 po q day for pain with food MELOXICAM 15 MG TABS 335892 MELOXICAM Inactive FLONASE 50 MCG/ACT SUSP 1 spray each nostril am and hs FLONASE 50 MCG/ACT SUSP 3122300 FLUTICASONE PROPIONATE Inactive GUAIFENESIN-CODEINE 100-10 MG/5ML SYRP 5ml every 4 to 6 hours as needed for cough GUAIFENESIN-CODEINE 100-10 MG/5ML SYRP 832118 GUAIFENESIN-CODEINE Inactive ZITHROMAX Z-MARY 250 MG TABS 2 today and then 1 daily for 4 days ZITHROMAX Z-MARY 250 MG TABS 4603015 AZITHROMYCIN Inactive CEFTIN 500 MG TAB 1 tablet by mouth twice daily for ten days. CEFTIN 500 MG TAB 506288 CEFUROXIME AXETIL Inactive PROAIR HFA 108 (90 BASE) MCG/ACT AERS 2 puffs every 4 hours as needed 2014 PROAIR HFA 108 (90 BASE) MCG/ACT AERS ALBUTEROL SULFATE Inactive E-Z SPACER ERIBERTO use with proair inhalier every 4 times as need. E-Z SPACER ERIBERTO SPACER/AERO-HOLDING CHAMBERS Inactive IRVING-D ALLERGY & CONGESTION [id number] 1 po bid IRVING-D ALLERGY & CONGESTION [id number] FEXOFENADINE-PSEUDOEPHEDRINE XR12H- TAB Inactive PREDNISONE 20 MG TAB 1 tablet twice daily for 2 days, then 1 tablet once daily for 2 days PREDNISONE 20 MG TAB 245422 PREDNISONE Inactive GUAIFENESIN 600 MG [id number] 1 twice a day as needed for congestion GUAIFENESIN 600 MG ER93E-ECJ GUAIFENESIN Inactive FLUTICASONE PROPIONATE 50 MCG/ACT SUSP 1 to 2 sprays each nostril daily 03/20 FLUTICASONE PROPIONATE 50 MCG/ACT SUSP 1979382 FLUTICASONE PROPIONATE Inactive MUCINEX D 60-600 MG [id number] 1 po BID PRN Congestion MUCINEX D 60-600 MG TP67H-ZKN PSEUDOEPHEDRINE-GUAIFENESIN Inactive AZITHROMYCIN 250 MG TABS 2 po qd x 1 day, then 1 po qd x 4 days AZITHROMYCIN 250 MG TABS 1338971 AZITHROMYCIN Inactive AZITHROMYCIN 250 MG TABS 2 po qd x 1 day, then 1 po qd x 4 days AZITHROMYCIN 250 MG TABS 1744306 AZITHROMYCIN Inactive MEDROL (MARY) 4 MG TABS 6 pills on day 1, 5 pills on day 2, 4 pills on day 3, 4 pills on day 4, 2 pills on day 5, 1 pill on day 6 MEDROL (MARY) 4 MG TABS 146871 METHYLPREDNISOLONE Inactive CEPHALEXIN 500 MG CAPS 1 tablet by mouth three times daily for ten days 06/25 CEPHALEXIN 500 MG CAPS 304407 CEPHALEXIN Inactive PREDNISONE 20 MG TAB 2 tabs daily for 3 days, 1 tab daily for 3 days, 1/2 tab daily for 2 days PREDNISONE 20 MG TAB 730559 PREDNISONE Inactive CEFDINIR 300 MG CAPS 1 cap by mouth twice a day CEFDINIR 300 MG CAPS 934066 CEFDINIR Inactive PREDNISONE 20 MG TAB 2 tabs daily for 3 days, 1 tab daily for 3 days, 1/2 tab daily for 2 days PREDNISONE 20 MG TAB 337733 PREDNISONE Inactive PREDNISONE 20 MG TAB 2 tabs daily for 3 days, 1 tab daily for 3 days, 1/2 tab daily for 2 days PREDNISONE 20 MG TAB 285766 PREDNISONE Inactive CEFDINIR 300 MG CAPS by mouth twice a day CEFDINIR 300 MG CAPS 191846 CEFDINIR Inactive PREDNISONE 20 MG TAB 2 tabs daily for 3 days, 1 tab daily for 3 days, 1/2 tab daily for 2 days PREDNISONE 20 MG TAB 919030 PREDNISONE Inactive CEFDINIR 300 MG CAPS 1 po BID x 10 days CEFDINIR 300 MG CAPS 20021026 CEFDINIR Inactive AZITHROMYCIN 250 MG TABS 2 po qd x 1 day, then 1 po qd x 4 days AZITHROMYCIN 250 MG TABS 1550095 AZITHROMYCIN Inactive PREDNISONE 20 MG TAB 2 tabs daily for 3 days, 1 tab daily for 3 days, 1/2 tab daily for 2 days start tomorrow 07/31/16 PREDNISONE 20 MG TAB 873037 PREDNISONE Inactive Immunizations Vaccine Administration Date Value Standard Description Human Papillomavirus vaccine (Gardasil) #2, (HPV #2) Gardasil [ CVX62] human papilloma virus vaccine, quadrivalent Seasonal influenza vaccine, injectable, containing preservative, for > 3 years old (Afluria, FluLaval, Fluzone, Fluvirin, Fluarix, Agriflu(>=18 yo)) Fluzone (>3 yrs.) [FDO477] Influenza, seasonal, injectable Human Papillomavirus Vaccine (Gardasil) #1 Given (HPV #1) Gardasil [CVX62] human papilloma virus vaccine, quadrivalent hepatitis A immunization #2 Havrix-Pedi hepatitis A vaccine, unspecified formulation Boostrix (Tetanus toxoid, reduced diphtheria toxoid and acellular pertussis vaccine, adsorbed), booster Boostrix [[id number]] tetanus toxoid, reduced diphtheria toxoid, and acellular [...] Negative;Positive Encounters Code Encounter Date Provider Facility CPT-78547 Level 3 Est. Patient 10:49:47 [employer] Griselda Horvath [facility] CPT-98757 Level 3 Est. Patient 08:43:59 [employer] H [employer]ENT Jessika Nunes [facility] CPT-47163 Level 3 Est. Patient 09:05:19 [employer] H [employer] Griselda Horvath [facility] CPT-61764 Level 3 Est. Patient 15:45:46 CDT Griselda Horvath [facility] CPT-69779 Level 3 Est. Patient 14:15:52 CDT Daniele Mcfadden [facility] CPT-98750 Level 3 Est. Patient 13:57:19 FOUR H AGENT Margarito Kelley MD [facility] CPT-48241 Level 3 Est. Patient 09:16:05 FOUR H [employer]ENT Margarito Kelley MD [facility] CPT-86142 Level 3 Est. Patient 15:37:06 FOUR H [employer]ENT Daniele Mcfadden [facility] CPT-02004 Level 3 Est. Patient 11:56:34 FOUR H AGENT Renée Adames [facility] CPT-12166 Level 3 Est. Patient 12:19:42 CDT Daniele Mcfadden [facility] CPT-15406 Level 3 Est. Patient 11:08:45 CDT Annita Mejia MD PhD [facility] CPT-05850 Level 3 Est. Patient 12:00:17 CDT Kendell Coronado MD [facility] CPT-65892 Level 3 Est. Patient 12:27:25 CDT Daniele Mcfadden [facility] CPT-87565 Level 3 Est. Patient 18:45:11 [employer] Daniele Mcfadden [facility] CPT-63419 Level 3 Est. Patient 10:12:24 [employer] H [employer] Daniele Mcfadden [facility] CPT-54484 Level 3 Est. Patient 14:35:11 [employer] H [employer] Daniele Mcfadden [facility] CPT-27993 Level 3 Est. Patient 14:11:04 CDT Daniele Mcfadden [facility] CPT-46883 Level 3 Est. Patient 10:52:13 CDT Alexander LOPEZ [facility] CPT-12921 Level 3 Est. Patient 11:01:08 [employer] H [employer]ENT Daniele Gaetano Bogdan [facility] CPT-38874 Level 3 Est. Patient 10:55:35 CDT Daniele Mcfadden [facility] CPT-00993 Level 3 Est. Patient 14:03:08 CDT Daniele Mcfadden [facility] CPT-04705 Level 3 Est. Patient 11:26:19 CDT Margarito Kelley MD [facility] CPT-54994 Level 2 Est. Patient 15:32:04 [employer] H [employer]ENT Daniele Mcfadden [facility] CPT-82184 Level 3 Est. Patient 16:01:26 [employer] H [employer]ENT Daniele Mcfadden [facility] CPT-37982 Level 3 Est. Patient 06:37:10 FOUR H [employer]ENT Daniele Salter [facility] Procedures Code Procedure Name Date Entry Date Standard Description CPT-00606 Addl Vx - Ix admin via ID IM or jet injects without counseling by physician 14:37:19 CDT CPT-93898 Meningococcal B, recombinant vaccine 14:37:19 CDT 03/05 CPT-05449 First Vx - Ix admin via ID IM or jet injects without counseling by physician 14:37:19 CDT CPT-98200 Menveo Intramuscular Solution Reconstituted 14:37:19 CDT CPT-89118 Meningococcal Conjugate Vacine (Menactra) 11:20:04 CDT CPT-08648 Throat Culture - LAB USE ONLY 12:15:45 [employer] H [employer] CPT-64977 Shani Flu A/B - LAB USE ONLY 12:15:45 [employer] H [employer] CPT-97962 Rapid Strep (Reflex throat) - LAB USE ONLY 12:15:45 [employer] H [employer] CPT-52356 Rapid Strep (Grp A) - LAB USE ONLY 13:06:06 CDT CPT-41961 Abd compl w upright 12:34:39 CDT CPT-59760 Immunization Single Admin 11:38:41 CDT CPT-42546 Fluzone Quadrivalent Intramuscular Suspension 0.5 ML 11: 38:41 CDT CPT-OV Office Visit 14:45:12 [employer] H [employer] CPT-69764 Sono abd com inc all organs plus proximal aorta and distal IVC 2012 12:13:02 FOUR H [employer]ENT CPT-30781 Abd compl w upright 15:12:58 [employer] H [employer]ENT CPT-98241 Venipuncture Draw Fee 14:38:32 [employer] H [employer] CPT-91859 Administration single or combination vaccine inc oral 17 :10:04 CDT CPT-14520 Gardasil 17:10:04 CDT CPT-24503 Venipuncture Draw Fee 16:07:54 [employer] H [employer] CPT-25898 Administration 2+ single or combination vaccines inc oral 17:22:02 CDT CPT-50239 Administration single or combination vaccine inc oral 17 :22:02 CDT CPT-12969 Influenza split virus > age 3 17:22:02 CDT CPT-65359 Gardasil 17:22:02 CDT CPT-77771 Administration 2+ single or combination vaccines inc oral 14:38:31 CDT CPT-06728 Administration single or combination vaccine inc oral 14 :38:31 CDT CPT-08050 Meningococcal Conjugate Vacine (Menactra) 14:38:31 CDT [facility]-33942 Gardasil 14:38:31 CDT
--- OUTSIDE RECORDS SUMMARY | 2018-02-15 06:47 | XMS REPORT | Clinical Summary ---
Author Author Admin, [employer] Organization [employer] Address Unknown Phone Unavailable Allergies, Adverse Reactions, [...] of muscle, nontraumatic Abdominal pain 789.00 Correction rErol Pack MD Abdominal pain, unspecified site Biliary [...] MD Biliary dyskinesia ICD-575.8 Inactive Katie Gipson BENZENE WASHER U R I ICD-465.9 Inactive Daniele Mcfadden [...] tube dysfunction, right ICD-381.81 Inactive Katie Gipson BENZENE WASHER Pharyngitis-Acute ICD-462 Inactive Katie Gipson BENZENE WASHER URI ICD-465.9 Inactive Katie Gipson BENZENE WASHER Allergic rhinitis ICD-477.9 Inactive Katie Gipson BENZENE WASHER Acute rhinosinusitis ICD-461.9 Inactive Katie Gipson LPN [...] today, then 1 tab tomorrow 08/30 PREDNISONE [id number] No Longer Active Daniele Mcfadden DO Active FLUTICASONE PROPIONATE 50 MCG/ACT NASAL SUSPENSION 1 spray each nostril twice daily until bottle empty FLUTICASONE PROPIONATE 62467453361 Active Daniele Mcfadden DO Active PREDNISONE 10 MG ORAL TABLET 2 TABS BY MOUTH TODAY, THEN 1 TAB BY MOUTH DAYS 2 -5 PREDNISONE 32971452616 No Longer Active Daniele Mcfadden DO Active PREDNISONE 20 MG ORAL TABLET two tabs by mouth today, then one tab by mouth days two and three PREDNISONE 75319967463 No Longer Active Whitley Hernandez Active AZITHROMYCIN 250 MG ORAL TABLET 2 po qd x 1 day, then 1 po qd x 4 days 07/24 AZITHROMYCIN 60053537725 No Longer Active Daniele Mcfadden DO Active IRVING-D ALLERGY & CONGESTION 60-120 MG ORAL TABLET EXTENDED RELEASE 12 HOUR 1 tablet twice daily as needed for congestion/allergies FEXOFENADINE-PSEUDOEPHEDRINE 00063346518 Active Holly Sharma Active PREDNISONE 20 MG ORAL TABLET 2 tabs daily for 3 days, 1 tab daily for 3 days, 1/2 tab daily for 2 days start tomorrow 07/31/16 PREDNISONE 46730908151 No Longer Active Jillina Frazell LOGISTICS ACCOUNT MANAGER Active AZITHROMYCIN 250 MG ORAL TABLET 2 po qd x 1 day, then 1 po qd x 4 days 08/30 AZITHROMYCIN 69741051329 No Longer Active Jillina Jiml LOGISTICS ACCOUNT MANAGER Active MUCINEX D 60-600 MG ORAL TABLET EXTENDED RELEASE 12 HOUR 1 po BID PRN Congestion PSEUDOEPHEDRINE-GUAIFENESIN 91566064027 No Longer Active Jessika Nunes APRN Active CEFDINIR 300 MG ORAL CAPSULE 1 po BID x 10 days CEFDINIR 52606096481 No Longer Active Ezekielllina Alexandru LOGISTICS ACCOUNT MANAGER Active PREDNISONE 20 MG ORAL TABLET 2 tabs daily for 3 days, 1 tab daily for 3 days, 1/2 tab daily for 2 days PREDNISONE 15940209560 No Longer Active Ezekielllina Jiml LOGISTICS ACCOUNT MANAGER Active FLUTICASONE PROPIONATE 50 MCG/ACT NASAL SUSPENSION 1 to 2 sprays each nostril daily FLUTICASONE PROPIONATE 35904748325 No Longer Active Ezekielllina Alexandru LOGISTICS ACCOUNT MANAGER Active GUAIFENESIN ER 600 MG ORAL TABLET EXTENDED RELEASE 12 HOUR 1 twice a day as needed for congestion GUAIFENESIN 19896556503 No Longer Active Ezekielllina Alexandru LOGISTICS ACCOUNT MANAGER Active CEFDINIR 300 MG ORAL CAPSULE by mouth twice a day CEFDINIR 13858687498 No Longer Active Ezekielllina Alexandru ONTIVEROSN Active PREDNISONE 20 MG ORAL TABLET 1 tablet twice daily for 2 days, then 1 tablet once daily for 2 days PREDNISONE 56338379427 No Longer Active Jillina Jiml LOGISTICS ACCOUNT MANAGER Active PREDNISONE 20 MG ORAL TABLET 2 tabs daily for 3 days, 1 tab daily for 3 days, 1/2 tab daily for 2 days PREDNISONE 79300821046 No Longer Active Margarito Kelley MD Active IRVING-D ALLERGY & CONGESTION TABLET EXTENDED RELEASE 12 HOUR 1 po bid 05/26 FEXOFENADINE-PSEUDOEPHEDRINE [id number] 11104341402 No Longer Active Margarito Kelley MD Active PREDNISONE 20 MG ORAL TABLET 2 tabs daily for 3 days, 1 tab daily for 3 days, 1/2 tab daily for 2 days PREDNISONE 72705696696 No Longer Active Ezekielllina Fratracey JOHNSON Active CEFDINIR 300 MG ORAL CAPSULE 1 cap by mouth twice a day CEFDINIR 09989073066 No Longer Active Jillina Frazell LOGISTICS ACCOUNT MANAGER Active E-Z SPACER DEVICE use with proair inhalier every 4 times as need. SPACER/AERO-HOLDING CHAMBERS 45867560499 No Longer Active Jillina Framarkl ALEX Active PROAIR HFA 108 (90 Base) MCG/ACT INHALATION AEROSOL SOLUTION 2 puffs every 4 hours as needed ALBUTEROL SULFATE 41213514119 No Longer Active Ezekielllsd Fernandezl LOGISTICS ACCOUNT MANAGER Active CEFTIN 500 MG ORAL TABLET 1 tablet by mouth twice daily for ten days. CEFUROXIME AXETIL 99345928029 No Longer Active Griselda Horvath APRN Active PREDNISONE 20 MG ORAL TABLET 2 tabs daily for 3 days, 1 tab daily for 3 days, 1/2 tab daily for 2 days PREDNISONE 34582261651 No Longer Active Margarito Kelley MD Active CEPHALEXIN 500 MG ORAL CAPSULE 1 tablet by mouth three times daily for ten days CEPHALEXIN 93372058349 No Longer Active Renée Adames APRN Active MEDROL 4 MG ORAL TABLET THERAPY PACK 6 pills on day 1, 5 pills on day 2, 4 pills on day 3, 4 pills on day 4, 2 pills on day 5, 1 pill on day 6 METHYLPREDNISOLONE 11931907808 No Longer Active Annita Mejia MD PhD Active ZITHROMAX Z-MARY 250 MG ORAL TABLET 2 today and then 1 daily for 4 days 03/11 AZITHROMYCIN 53524040915 No Longer Active Annita Mejia MD PhD Active GUAIFENESIN-CODEINE 100-10 MG/5ML ORAL SYRUP 5ml every 4 to 6 hours as needed for cough GUAIFENESIN-CODEINE 10011334969 No Longer Active Annita Mejia MD PhD Active FLONASE 50 MCG/ACT NASAL SUSPENSION 1 spray each nostril am and hs FLUTICASONE PROPIONATE 59526393079 No Longer Active Kendell Coronado MD Active MELOXICAM 15 MG ORAL TABLET 1 po q day for pain with food MELOXICAM 44086153388 No Longer Active Kendell Coronado MD Active HYDROCODONE-ACETAMINOPHEN 5-325 MG ORAL TABLET 1-2 q 4-6 hrs prn pain 20 tabs HYDROCODONE-ACETAMINOPHEN 05283261995 No Longer Active Daniele Mcfadden DO Active PREDNISONE 20 MG ORAL TABLET 1 tablet twice daily for 2 days, then 1 tablet once daily for 2 days PREDNISONE 07231539052 No Longer Active Daniele Mcfadden DO Active PREDNISONE 20 MG ORAL TABLET 1 po bid 2 days, then daily for 2 days PREDNISONE 86726192429 No Longer Active Alexander LOPEZ Active AZITHROMYCIN 250 MG ORAL TABLET 2 po qd x 1 day, then 1 po qd x 4 days 08/05 AZITHROMYCIN 69541930868 No Longer Active Daniele Mcfadden DO Active MUCINEX MAXIMUM STRENGTH TABLET EXTENDED RELEASE 12 HOUR 1 po qd GUAIFENESIN [id number] 17624118170 No Longer Active Daniele Mcfadden DO Active AZITHROMYCIN 250 MG ORAL TABLET 2 po qd x 1 day, then 1 po qd x 4 days 11/26 AZITHROMYCIN 17386894952 No Longer Active Margarito Kelley MD Active MUCINEX MAXIMUM STRENGTH TABLET EXTENDED RELEASE 12 HOUR 1 po qd MUCINEX MAXIMUM STRENGTH TABLET EXTENDED RELEASE 12 HOUR GUAIFENESIN [id number] Inactive PREDNISONE 20 MG ORAL TABLET 1 po bid 2 days, then daily for 2 days PREDNISONE 20 MG ORAL TABLET 499035 PREDNISONE Inactive PREDNISONE 20 MG ORAL TABLET 1 tablet twice daily for 2 days, then 1 tablet once daily for 2 days PREDNISONE 20 MG ORAL TABLET 686579 PREDNISONE Inactive HYDROCODONE-ACETAMINOPHEN 5-325 MG ORAL TABLET 1-2 q 4-6 hrs prn pain 20 tabs HYDROCODONE-ACETAMINOPHEN 5-325 MG ORAL TABLET 726965 HYDROCODONE-ACETAMINOPHEN Inactive MELOXICAM 15 MG ORAL TABLET 1 po q day for pain with food MELOXICAM 15 MG ORAL TABLET 039249 MELOXICAM Inactive FLONASE 50 MCG/ACT NASAL SUSPENSION 1 spray each nostril am and hs FLONASE 50 MCG/ACT NASAL SUSPENSION 2470713 FLUTICASONE PROPIONATE Inactive GUAIFENESIN-CODEINE 100-10 MG/5ML ORAL SYRUP 5ml every 4 to 6 hours as needed for cough GUAIFENESIN-CODEINE 100-10 MG/5ML ORAL SYRUP 966407 GUAIFENESIN-CODEINE Inactive ZITHROMAX Z-MARY 250 MG ORAL TABLET 2 today and then 1 daily for 4 days 03/11 ZITHROMAX Z-MARY 250 MG ORAL TABLET 845191 AZITHROMYCIN Inactive CEFTIN 500 MG ORAL TABLET [...] CONGESTION TABLET EXTENDED RELEASE 12 HOUR FEXOFENADINE-PSEUDOEPHEDRINE [id number] Inactive PREDNISONE 20 MG ORAL TABLET 1 tablet twice daily for 2 days, then 1 tablet once daily for 2 days PREDNISONE 20 MG ORAL TABLET 880423 PREDNISONE Inactive GUAIFENESIN ER 600 MG ORAL TABLET EXTENDED RELEASE 12 HOUR 1 twice a day as needed for congestion GUAIFENESIN ER 600 MG ORAL TABLET EXTENDED RELEASE 12 HOUR GUAIFENESIN Inactive FLUTICASONE PROPIONATE 50 MCG/ACT NASAL SUSPENSION 1 to 2 sprays each nostril daily FLUTICASONE PROPIONATE 50 MCG/ACT NASAL SUSPENSION 8291470 FLUTICASONE PROPIONATE Inactive MUCINEX D 60-600 MG ORAL TABLET EXTENDED RELEASE 12 HOUR 1 po BID PRN Congestion MUCINEX D 60-600 MG ORAL TABLET EXTENDED RELEASE 12 HOUR PSEUDOEPHEDRINE-GUAIFENESIN Inactive PREDNISONE 20 MG ORAL TABLET two tabs by mouth today, then one tab by mouth days two and three PREDNISONE 20 MG ORAL TABLET 132912 PREDNISONE Inactive PREDNISONE 10 MG ORAL TABLET 2 TABS BY MOUTH TODAY, THEN 1 TAB BY MOUTH DAYS 2 -5 PREDNISONE 10 MG ORAL TABLET 207304 PREDNISONE Inactive PREDNISONE 20 MG ORAL TABLET 2 tabs by mouth today, then 1 tab tomorrow 08/30 PREDNISONE 20 MG ORAL TABLET 256296 PREDNISONE Inactive AZITHROMYCIN 250 MG ORAL TABLET 2 po qd x 1 day, then 1 po qd x 4 days 11/26 AZITHROMYCIN 250 MG ORAL TABLET 322027 AZITHROMYCIN Inactive AZITHROMYCIN 250 MG ORAL TABLET 2 po qd x 1 day, then 1 po qd x 4 days 08/05 AZITHROMYCIN 250 MG ORAL TABLET 481817 AZITHROMYCIN Inactive MEDROL 4 MG ORAL TABLET THERAPY PACK 6 pills on day 1, 5 pills on day 2, 4 pills on day 3, 4 pills on day 4, 2 pills on day 5, 1 pill on day 6 MEDROL 4 MG ORAL TABLET THERAPY PACK 657868 METHYLPREDNISOLONE Inactive CEPHALEXIN 500 MG ORAL CAPSULE 1 tablet by mouth three times daily for ten days CEPHALEXIN 500 MG ORAL CAPSULE 526107 CEPHALEXIN Inactive PREDNISONE 20 MG ORAL TABLET 2 tabs daily for 3 days, 1 tab daily for 3 days, 1/2 tab daily for 2 days PREDNISONE 20 MG ORAL TABLET 001170 PREDNISONE Inactive CEFDINIR 300 MG ORAL CAPSULE 1 cap by mouth twice a day CEFDINIR 300 MG ORAL CAPSULE 881617 CEFDINIR Inactive PREDNISONE 20 MG ORAL TABLET 2 tabs daily for 3 days, 1 tab daily for 3 days, 1/2 tab daily for 2 days PREDNISONE 20 MG ORAL TABLET 594613 PREDNISONE Inactive PREDNISONE 20 MG ORAL TABLET 2 tabs daily for 3 days, 1 tab daily for 3 days, 1/2 tab daily for 2 days PREDNISONE 20 MG ORAL TABLET 702489 PREDNISONE Inactive CEFDINIR 300 MG ORAL CAPSULE by mouth twice a day CEFDINIR 300 MG ORAL CAPSULE 074501 CEFDINIR Inactive PREDNISONE 20 MG ORAL TABLET 2 tabs daily for 3 days, 1 tab daily for 3 days, 1/2 tab daily for 2 days PREDNISONE 20 MG ORAL TABLET 678742 PREDNISONE Inactive CEFDINIR 300 MG ORAL CAPSULE 1 po BID x 10 days CEFDINIR 300 MG ORAL CAPSULE 199712 CEFDINIR Inactive AZITHROMYCIN 250 MG ORAL TABLET 2 po qd x 1 day, then 1 po qd x 4 days 08/30 AZITHROMYCIN 250 MG ORAL TABLET 734894 AZITHROMYCIN Inactive PREDNISONE 20 MG ORAL TABLET 2 tabs daily for 3 days, 1 tab daily for 3 days, 1/2 tab daily for 2 days start tomorrow 07/31/16 PREDNISONE 20 MG ORAL TABLET 591123 PREDNISONE Inactive AZITHROMYCIN 250 MG ORAL TABLET 2 po qd x 1 day, then 1 po qd x 4 days 07/24 AZITHROMYCIN 250 MG ORAL TABLET 419485 AZITHROMYCIN Inactive Immunizations Vaccine Administration Date Value Standard Description Human Papillomavirus vaccine (Gardasil) #2, (HPV #2) Gardasil [ CVX62] human papilloma virus vaccine, quadrivalent Seasonal influenza vaccine, injectable, containing preservative, for > 3 years old (Afluria, FluLaval, Fluzone, Fluvirin, Fluarix, Agriflu(>=18 yo)) Fluzone (>3 yrs.) [FIK040] Influenza, seasonal, injectable Human Papillomavirus Vaccine (Gardasil) #1 Given (HPV #1) Gardasil [CVX62] human papilloma virus vaccine, quadrivalent hepatitis A immunization #2 Havrix-Pedi hepatitis A vaccine, unspecified formulation Boostrix (Tetanus toxoid, reduced diphtheria toxoid and acellular pertussis vaccine, adsorbed), booster Boostrix [JEX302] tetanus toxoid, reduced diphtheria toxoid, and acellular [...] Negative Encounters Code Encounter Date Provider Facility CPT-23208 Level 3 Est. Patient 16:00:45 CDT Daniele Mcfadden DO [facility] CPT-11812 Level 3 Est. Patient 15:57:40 CDT Daniele [facility] CPT-13782 Level 3 Est. Patient 09:35:49 CREAM BEATER Daniele Mcfadden [facility] CPT-77789 Level 3 Est. Patient 09:35:25 CREAM BEATER Daniele Mcfadden [facility] CPT-64410 Level 3 Est. Patient 16:03:55 CREAM BEATER Whitley Quiroz [facility] CPT-31150 Level 3 Est. Patient 17:42:49 CREAM BEATER Whitley Quiroz [facility] CPT-40953 Level 3 Est. Patient 10:49:47 CREAM BEATER Griselda Horvath [facility] CPT-67803 Level 3 Est. Patient 08:43:59 CREAM BEATER Jessika Nunes [facility] CPT-82447 Level 3 Est. Patient 09:05:19 CREAM BEATER Griselda Horvath [facility] CPT-79166 Level 3 Est. Patient 15:45:46 CDT Griselda Horvath [facility] CPT-40277 Level 3 Est. Patient 14:15:52 CDT Daniele Mcfadden [facility] CPT-12805 Level 3 Est. Patient 13:57:19 CREAM BEATER Margarito Kelley MD [facility] CPT-40259 Level 3 Est. Patient 09:16:05 CREAM BEATER Margarito Kelley MD [facility] CPT-24699 Level 3 Est. Patient 15:37:06 CREAM BEATER Daniele Mcfadden [facility] CPT-90107 Level 3 Est. Patient 11:56:34 CREAM BEATER Renée Adames [facility] CPT-35391 Level 3 Est. Patient 12:19:42 CDT Daniele Mcfadden [facility] CPT-13330 Level 3 Est. Patient 11:08:45 CDT Annita Mejia MD, PhD [facility] CPT-47682 Level 3 Est. Patient 12:00:17 CDT Kendell Coronado MD [facility] CPT-92992 Level 3 Est. Patient 12:27:25 CDT Daniele Gaetano Bogdan [facility] CPT-63041 Level 3 Est. Patient 18:45:11 CREAM BEATER Daniele Mcfadden [facility] CPT-29560 Level 3 Est. Patient 10:12:24 CREAM BEATER Daniele Mcfadden [facility] CPT-26643 Level 3 Est. Patient 14:35:11 CREAM BEATER Daniele Mcfadden [facility] CPT-84351 Level 3 Est. Patient 14:11:04 CDT Daniele Gaetano Bogdan [facility] CPT-57906 Level 3 Est. Patient 10:52:13 CDT Alexander LOPEZ [facility] CPT-80880 Level 3 Est. Patient 11:01:08 CREAM BEATER Daniele Mcfadden [facility] CPT-25310 Level 3 Est. Patient 10:55:35 CDT Daniele Salter [facility] CPT-88308 Level 3 Est. Patient 14:03:08 CDT Daniele Gaetano Mcfadden [facility] CPT-84443 Level 3 Est. Patient 11:26:19 CDT Margarito Kelley MD [facility] CPT-89148 Level 2 Est. Patient 15:32:04 CREAM BEATER Daniele Mcfadden [facility] CPT-67786 Level 3 Est. Patient 16:01:26 CREAM BEATER Daniele Mcfadden [facility] CPT-08673 Level 3 Est. Patient 06:37:10 CREAM BEATER Daniele Mcfadden [facility] Procedures Code Procedure Name Date Entry Date Standard Description CPT-32300 Addl Vx - Ix admin via ID IM or jet injects without counseling by physician 14:37:19 CDT CPT-41488 Meningococcal B, recombinant vaccine 14:37:19 CDT 03/05 CPT-63092 First Vx - Ix admin via ID IM or jet injects without counseling by physician 14:37:19 CDT CPT-25197 Menveo Intramuscular Solution Reconstituted 14:37:19 CDT CPT-05537 Meningococcal Conjugate Vacine (Menactra) 11:20:04 CDT CPT-09050 Throat Culture - LAB USE ONLY 12:15:45 CREAM BEATER CPT-71633 Misa Flu A/B - LAB USE ONLY 12:15:45 CREAM BEATER CPT-57428 Rapid Strep (Reflex throat) - LAB USE ONLY 12:15:45 CREAM BEATER CPT-20989 Rapid Strep (Grp A) - LAB USE ONLY 13:06:06 CDT CPT-46569 Abd compl w upright 12:34:39 CDT CPT-85602 Immunization Single Admin 11:38:41 CDT CPT-40957 Fluzone Quadrivalent Intramuscular Suspension 0.5 ML 11: 38:41 CDT CPT-OV Office Visit 14:45:12 CREAM BEATER CPT-36882 Sono abd com inc all organs plus proximal aorta and distal IVC 2012 12:13:02 CREAM BEATER CPT-90040 Abd compl w upright 15:12:58 CREAM BEATER CPT-72861 Venipuncture Draw Fee 14:38:32 CREAM BEATER CPT-31110 Administration single or combination vaccine inc oral 17 :10:04 CDT CPT-59792 Gardasil 17:10:04 CDT CPT-20583 Venipuncture Draw Fee 16:07:54 CREAM BEATER CPT-84791 Administration 2+ single or combination vaccines inc oral 17:22:02 CDT CPT-55530 Administration single or combination vaccine inc oral 17 :22:02 CDT CPT-39639 Influenza split virus > age 3 17:22:02 CDT CPT-24577 Gardasil 17:22:02 CDT CPT-45196 Administration 2+ single or combination vaccines inc oral 14:38:31 CDT CPT-20300 Administration single or combination vaccine inc oral 14 :38:31 CDT CPT-56993 Meningococcal Conjugate Vacine (Menactra) 14:38:31 CDT CPT-95126 Gardasil 14:38:31 CDT
--- OUTSIDE RECORDS SUMMARY | 2018-02-15 06:47 | XMS REPORT | Clinical Summary ---
Author Author Admin, OLEG Organization [facility] Address Unknown Phone Unavailable Allergies, [...] unspecified site Sinusitis 473.9 Active Griselda Horvath MANAGER SIMULATION Unspecified sinusitis (chronic) Eustachian tube dysfunction, right [...] pain, left ICD-719.46 Inactive Margarito Kelley MD Fatigue ICD-780.79 Inactive Margarito Kelley MD 2014 Sinusitis, acute ICD-461.9 Inactive Margarito Kelley MD Medication List Medication Instructions Start Date Stop Date Generic Name NDC Status Provider Patient Instruction GUAIFENESIN 600 MG [id number] 1 twice a day as needed for congestion GUAIFENESIN 64607463118 Active Jillina Frazell MANAGER SIMULATION Active FLUTICASONE PROPIONATE 50 MCG/ACT SUSP 1 to 2 sprays each nostril daily 03/20 FLUTICASONE PROPIONATE 37458714373 Active Jillina Frazell MANAGER SIMULATION Active CEFDINIR 300 MG CAPS by mouth twice a day CEFDINIR 99343754015 No Longer Active Jillina Frazell MANAGER SIMULATION Active PREDNISONE 20 MG TAB 1 tablet twice daily for 2 days, then 1 tablet once daily for 2 days PREDNISONE 94223877960 No Longer Active Jillina Frazell MANAGER SIMULATION Active PREDNISONE 20 MG TAB 2 tabs daily for 3 days, 1 tab daily for 3 days, 1/2 tab daily for 2 days PREDNISONE 34086964668 No Longer Active Margarito Kelley MD Active IRVING-D ALLERGY & CONGESTION [id number] 1 po bid FEXOFENADINE-PSEUDOEPHEDRINE [id number] No Longer Active Margarito Kelley MD Active PREDNISONE 20 MG TAB 2 tabs daily for 3 days, 1 tab daily for 3 days, 1/2 tab daily for 2 days PREDNISONE 57964357234 No Longer Active Jillina Frazell MANAGER SIMULATION Active CEFDINIR 300 MG CAPS 1 cap by mouth twice a day CEFDINIR 26103821309 No Longer Active Jillina Frazell MANAGER SIMULATION Active E-Z SPACER ERIBERTO use with proair inhalier every 4 times as need. SPACER/AERO-HOLDING CHAMBERS 50500306309 No Longer Active Jillina Frazell MANAGER SIMULATION Active PROAIR HFA 108 (90 BASE) MCG/ACT AERS 2 puffs every 4 hours as needed 2014 ALBUTEROL SULFATE 18378202976 No Longer Active Jillina Frazell MANAGER SIMULATION Active CEFTIN 500 MG TAB 1 tablet by mouth twice daily for ten days. CEFUROXIME AXETIL 58122903378 No Longer Active Jillina Frazell MANAGER SIMULATION Active PREDNISONE 20 MG TAB 2 tabs daily for 3 days, 1 tab daily for 3 days, 1/2 tab daily for 2 days PREDNISONE 78725495836 No Longer Active Margarito Kelley MD Active CEPHALEXIN 500 MG CAPS 1 tablet by mouth three times daily for ten days 06/25 CEPHALEXIN 95299730751 No Longer Active Renée Adames ALEX Active MEDROL (MARY) 4 MG TABS 6 pills on day 1, 5 pills on day 2, 4 pills on day 3, 4 pills on day 4, 2 pills on day 5, 1 pill on day 6 METHYLPREDNISOLONE 96690524194 No Longer Active Annita Mejia MD PhD Active ZITHROMAX Z-MARY 250 MG TABS 2 today and then 1 daily for 4 days AZITHROMYCIN 06667969451 No Longer Active Annita Mejia MD PhD Active GUAIFENESIN-CODEINE 100-10 MG/5ML SYRP 5ml every 4 to 6 hours as needed for cough GUAIFENESIN-CODEINE 09783091744 No Longer Active Annita Mejia MD PhD Active FLONASE 50 MCG/ACT SUSP 1 spray each nostril am and hs FLUTICASONE PROPIONATE 92406757952 No Longer Active Kendell Coronado MD Active MELOXICAM 15 MG TABS 1 po q day for pain with food MELOXICAM 45591355089 No Longer Active Kendell Coronado MD Active HYDROCODONE-ACETAMINOPHEN 5-325 MG TABS 1-2 q 4-6 hrs prn pain 20 tabs 07/04 HYDROCODONE-ACETAMINOPHEN 49941609778 No Longer Active Daniele Mcfadden DO Active PREDNISONE 20 MG TAB 1 tablet twice daily for 2 days, then 1 tablet once daily for 2 days PREDNISONE 57766085459 No Longer Active Daniele Mcfadden DO Active PREDNISONE 20 MG TAB 1 po bid 2 days, then daily for 2 days 12/27 PREDNISONE 68824240210 No Longer Active Alexander LOPEZ Active AZITHROMYCIN 250 MG TABS 2 po qd x 1 day, then 1 po qd x 4 days AZITHROMYCIN 76933190203 No Longer Active Daniele Mcfadden DO Active MUCINEX MAXIMUM STRENGTH [id number] 1 po qd GUAIFENESIN XR12H- TAB 81395075952 No Longer Active Daniele Mcfadden DO Active AZITHROMYCIN 250 MG TABS 2 po qd x 1 day, then 1 po qd x 4 days AZITHROMYCIN 71315184331 No Longer Active Margarito Kelley MD Active MUCINEX MAXIMUM STRENGTH [id number] 1 po qd MUCINEX MAXIMUM STRENGTH [id number] GUAIFENESIN [id number] Inactive PREDNISONE 20 MG TAB 1 po bid 2 days, then daily for 2 days 12/27 PREDNISONE 20 MG TAB 888119 PREDNISONE Inactive PREDNISONE 20 MG TAB 1 tablet twice daily for 2 days, then 1 tablet once daily for 2 days PREDNISONE 20 MG TAB 320449 PREDNISONE Inactive HYDROCODONE-ACETAMINOPHEN 5-325 MG TABS 1-2 q 4-6 hrs prn pain 20 tabs 07/04 HYDROCODONE-ACETAMINOPHEN 5-325 MG TABS 465539 HYDROCODONE- ACETAMINOPHEN Inactive MELOXICAM 15 MG TABS 1 po q day for pain with food MELOXICAM 15 MG TABS 582478 MELOXICAM Inactive FLONASE 50 MCG/ACT SUSP 1 spray each nostril am and hs FLONASE 50 MCG/ACT SUSP FLUTICASONE PROPIONATE Inactive GUAIFENESIN-CODEINE 100-10 MG/5ML SYRP 5ml every 4 to 6 hours as needed for cough GUAIFENESIN-CODEINE 100-10 MG/5ML SYRP 831227 GUAIFENESIN-CODEINE Inactive ZITHROMAX Z-MARY 250 MG TABS 2 today and then 1 daily for 4 days ZITHROMAX Z-MARY 250 MG TABS 2120505 AZITHROMYCIN Inactive CEFTIN 500 MG TAB 1 tablet by mouth twice daily for ten days. CEFTIN 500 MG TAB 410544 CEFUROXIME AXETIL Inactive PROAIR HFA 108 (90 BASE) MCG/ACT AERS 2 puffs every 4 hours as needed 2014 PROAIR HFA 108 (90 BASE) MCG/ACT AERS ALBUTEROL SULFATE Inactive E-Z SPACER ERIBERTO use with proair inhalier every 4 times as need. E-Z SPACER ERIBERTO SPACER/AERO-HOLDING CHAMBERS Inactive IRVING-D ALLERGY & CONGESTION [id number] 1 po bid IRVING-D ALLERGY & CONGESTION QV12W-EBI FEXOFENADINE-PSEUDOEPHEDRINE XR12H- TAB Inactive PREDNISONE 20 MG TAB 1 tablet twice daily for 2 days, then 1 tablet once daily for 2 days PREDNISONE 20 MG TAB 909393 PREDNISONE Inactive AZITHROMYCIN 250 MG TABS 2 po qd x 1 day, then 1 po qd x 4 days AZITHROMYCIN 250 MG TABS 3252300 AZITHROMYCIN Inactive AZITHROMYCIN 250 MG TABS 2 po qd x 1 day, then 1 po qd x 4 days AZITHROMYCIN 250 MG TABS 7471413 AZITHROMYCIN Inactive MEDROL (MARY) 4 MG TABS 6 pills on day 1, 5 pills on day 2, 4 pills on day 3, 4 pills on day 4, 2 pills on day 5, 1 pill on day 6 MEDROL (MARY) 4 MG TABS 783531 METHYLPREDNISOLONE Inactive CEPHALEXIN 500 MG CAPS 1 tablet by mouth three times daily for ten days 06/25 CEPHALEXIN 500 MG CAPS 942203 CEPHALEXIN Inactive PREDNISONE 20 MG TAB 2 tabs daily for 3 days, 1 tab daily for 3 days, 1/2 tab daily for 2 days PREDNISONE 20 MG TAB 020251 PREDNISONE Inactive CEFDINIR 300 MG CAPS 1 cap by mouth twice a day CEFDINIR 300 MG CAPS 881559 CEFDINIR Inactive PREDNISONE 20 MG TAB 2 tabs daily for 3 days, 1 tab daily for 3 days, 1/2 tab daily for 2 days PREDNISONE 20 MG TAB 636750 PREDNISONE Inactive PREDNISONE 20 MG TAB 2 tabs daily for 3 days, 1 tab daily for 3 days, 1/2 tab daily for 2 days PREDNISONE 20 MG TAB 786121 PREDNISONE Inactive CEFDINIR 300 MG CAPS by mouth twice a day CEFDINIR 300 MG CAPS 447367 CEFDINIR Inactive Immunizations Vaccine Administration Date Value Standard Description Human Papillomavirus vaccine (Gardasil) #2, (HPV #2) Gardasil [ CVX62] human papilloma virus vaccine, quadrivalent Seasonal influenza vaccine, injectable, containing preservative, for > 3 years old (Afluria, FluLaval, Fluzone, Fluvirin, Fluarix, Agriflu(>=18 yo)) Fluzone (>3 yrs.) [DNP382] Influenza, seasonal, injectable Human Papillomavirus Vaccine (Gardasil) #1 Given (HPV #1) Gardasil [CVX62] human papilloma virus vaccine, quadrivalent hepatitis A immunization #2 Havrix-Pedi hepatitis A vaccine, unspecified formulation Boostrix (Tetanus toxoid, reduced diphtheria toxoid and acellular pertussis vaccine, adsorbed), booster Boostrix [INT140] tetanus toxoid, reduced diphtheria toxoid, and acellular [...] Negative Encounters Code Encounter Date Provider Facility CPT-51203 Level 3 Est. Patient 15:45:46 CDT Griselda Horvath [facility] CPT-63174 Level 3 Est. Patient 14:15:52 CDT Daniele Mcfadden [facility] CPT-53913 Level 3 Est. Patient 13:57:19 PHARMACY AIDE Margarito Kelley MD [facility] CPT-53663 Level 3 Est. Patient 09:16:05 PHARMACY AIDE Margarito Kelley MD [facility] CPT-13868 Level 3 Est. Patient 15:37:06 PHARMACY AIDE Daniele Mcfadden [facility] CPT-81886 Level 3 Est. Patient 11:56:34 PHARMACY AIDE Renée Adames [facility] CPT-24781 Level 3 Est. Patient 12:19:42 CDT Daniele Mcfadden [facility] CPT-91670 Level 3 Est. Patient 11:08:45 CDT Annita Mejia MD PhD [facility] CPT-75375 Level 3 Est. Patient 12:00:17 CDT Kendell Coronado MD [facility] CPT-08379 Level 3 Est. Patient 12:27:25 CDT Daniele Mcfadden [facility] CPT-68453 Level 3 Est. Patient 18:45:11 PHARMACY AIDE Daniele Mcfadden [facility] CPT-73796 Level 3 Est. Patient 10:12:24 PHARMACY AIDE Daniele Mcfadden [facility] CPT-36026 Level 3 Est. Patient 14:35:11 PHARMACY AIDE Daniele Mcfadden [facility] CPT-60244 Level 3 Est. Patient 14:11:04 CDT Daniele Mcfadden [facility] CPT-85946 Level 3 Est. Patient 10:52:13 CDT Alexander LOPEZ [facility] CPT-13736 Level 3 Est. Patient 11:01:08 PHARMACY AIDE Daniele Mcfadden [facility] CPT-76525 Level 3 Est. Patient 10:55:35 CDT Daniele Mcfadden [facility] CPT-69734 Level 3 Est. Patient 14:03:08 CDT Daniele Mcfadden [facility] CPT-79006 Level 3 Est. Patient 11:26:19 CDT Margarito Kelley MD [facility] CPT-72042 Level 2 Est. Patient 15:32:04 PHARMACY AIDE Daniele Mcfadden [facility] CPT-67299 Level 3 Est. Patient 16:01:26 PHARMACY AIDE Daniele Mcfadden [facility] CPT-15313 Level 3 Est. Patient 06:37:10 PHARMACY AIDE Daniele Salter [facility] Procedures Code Procedure Name Date Entry Date Standard Description CPT-41756 Rapid Strep (Grp A) - LAB USE ONLY 13:06:06 CDT CPT-16004 Abd compl w upright 12:34:39 CDT CPT-18663 Immunization Single Admin 11:38:41 CDT CPT-40503 Fluzone Quadrivalent Intramuscular Suspension 0.5 ML 11: 38:41 CDT CPT-OV Office Visit 14:45:12 PHARMACY AIDE CPT-71880 [employer] [facility] [employer] [facility] all organs plus proximal aorta and distal IVC 2012 12:13:02 PHARMACY AIDE CPT-05859 Abd compl w upright 15:12:58 PHARMACY AIDE CPT-59508 Venipuncture Draw Fee 14:38:32 PHARMACY AIDE CPT-48150 Administration single or combination vaccine inc oral 17 :10:04 CDT CPT-43851 Gardasil 17:10:04 CDT CPT-72920 Venipuncture Draw Fee 16:07:54 PHARMACY AIDE CPT-66688 Administration 2+ single or combination vaccines inc oral 17:22:02 CDT CPT-23106 Administration single or combination vaccine inc oral 17 :22:02 CDT CPT-80166 Influenza split virus > age 3 17:22:02 CDT CPT-75729 Gardasil 17:22:02 CDT CPT-30896 Administration 2+ single or combination vaccines inc oral 14:38:31 CDT CPT-47837 Administration single or combination vaccine inc oral 14 :38:31 CDT CPT-46853 Meningococcal Conjugate Vacine (Menactra) 14:38:31 CDT CPT-59605 Gardasil 14:38:31 CDT
--- OUTSIDE RECORDS SUMMARY | 2018-02-15 06:48 | XMS REPORT | Clinical Summary ---
Author Author Admin, Ludmila Organization [employer] [facility] Address Unknown Phone Unavailable Allergies, Adverse Reactions, [...] tube dysfunction, right ICD-381.81 Inactive Katie Gipson [employer] Pharyngitis-Acute ICD-462 Inactive Katie Gipson [employer] MA[employer] URI ICD-465.9 Inactive Katie Gipson [employer] Allergic rhinitis ICD-477.9 Inactive Katie Gipson [employer] Acute rhinosinusitis ICD-461.9 Inactive Katie Gipson [employer] Fever ICD-780.60 Inactive Katie Gipson [employer] Immunization due ICD-V15.83 Inactive Katie Brandan BOWMAN U R I ICD-465.9 Inactive Holly Sharma Medication List Medication Instructions Start Date Stop Date Generic Name NDC Status Provider Patient Instruction FLUTICASONE PROPIONATE 50 MCG/ACT NASAL SUSPENSION 1 spray each nostril twice daily until bottle empty FLUTICASONE PROPIONATE 24967878021 Active Daniele Mcfadden DO Active PREDNISONE 20 MG ORAL TABLET 2 tabs by mouth today, then 1 tab tomorrow 08/30 PREDNISONE 41913359309 Active Daniele Mcfadden DO Active PREDNISONE 10 MG ORAL TABLET 2 TABS BY MOUTH TODAY, THEN 1 TAB BY MOUTH DAYS 2 -5 PREDNISONE 43729776999 No Longer Active Daniele Mcfadden DO Active PREDNISONE 20 MG ORAL TABLET two tabs by mouth today, then one tab by mouth days two and three PREDNISONE 34335616408 No Longer Active Whitley Hernandez Active AZITHROMYCIN 250 MG ORAL TABLET 2 po qd x 1 day, then 1 po qd x 4 days 07/24 AZITHROMYCIN 05744361192 No Longer Active Daniele Mcfadden DO Active IRVING-D ALLERGY & CONGESTION 60-120 MG ORAL TABLET EXTENDED RELEASE 12 HOUR 1 tablet twice daily as needed for congestion/allergies FEXOFENADINE-PSEUDOEPHEDRINE 16681949492 Active Holly Sharma Active PREDNISONE 20 MG ORAL TABLET 2 tabs daily for 3 days, 1 tab daily for 3 days, 1/2 tab daily for 2 days start tomorrow 07/31/16 PREDNISONE 25066365912 No Longer Active Jillsd Borgeszelyue JOHNSON Active AZITHROMYCIN 250 MG ORAL TABLET 2 po qd x 1 day, then 1 po qd x 4 days 08/30 AZITHROMYCIN 47807629062 No Longer Active Jillina [facility] Active MUCINEX D 60-600 MG ORAL TABLET EXTENDED RELEASE 12 HOUR 1 po BID PRN Congestion PSEUDOEPHEDRINE-GUAIFENESIN 93750842003 No Longer Active Jessika Nunes APRN Active CEFDINIR 300 MG ORAL CAPSULE 1 po BID x 10 days CEFDINIR 47072610578 No Longer Active Griselda Horvath APRN Active PREDNISONE 20 MG ORAL TABLET 2 tabs daily for 3 days, 1 tab daily for 3 days, 1/2 tab daily for 2 days PREDNISONE 92485822867 No Longer Active Ezekielllina Alexandru [facility]N Active FLUTICASONE PROPIONATE 50 MCG/ACT NASAL SUSPENSION 1 to 2 sprays each nostril daily FLUTICASONE PROPIONATE 13219473344 No Longer Active Griselda Horvath APRN Active GUAIFENESIN ER 600 MG ORAL TABLET EXTENDED RELEASE 12 HOUR 1 twice a day as needed for congestion GUAIFENESIN 74688850468 No Longer Active Griselda Horvath APRN Active CEFDINIR 300 MG ORAL CAPSULE by mouth twice a day CEFDINIR 77318060290 No Longer Active Griselda Horvath APRN Active PREDNISONE 20 MG ORAL TABLET 1 tablet twice daily for 2 days, then 1 tablet once daily for 2 days PREDNISONE 42959596852 No Longer Active Griselda Horvath APRN Active PREDNISONE 20 MG ORAL TABLET 2 tabs daily for 3 days, 1 tab daily for 3 days, 1/2 tab daily for 2 days PREDNISONE 47378052870 No Longer Active Margarito Kelley MD Active IRVING-D ALLERGY & CONGESTION TABLET EXTENDED RELEASE 12 HOUR 1 po bid 05/26 FEXOFENADINE-PSEUDOEPHEDRINE [id number] 91233946131 No Longer Active Margarito Kelley MD Active PREDNISONE 20 MG ORAL TABLET 2 tabs daily for 3 days, 1 tab daily for 3 days, 1/2 tab daily for 2 days PREDNISONE 50561100280 No Longer Active Ezekielllsd Horvath APRN Active CEFDINIR 300 MG ORAL CAPSULE 1 cap by mouth twice a day CEFDINIR 68859072844 No Longer Active Ezekielllsd Horvath APRN Active E-Z SPACER DEVICE use with proair inhalier every 4 times as need. SPACER/AERO-HOLDING CHAMBERS 65231274544 No Longer Active Griselda Horvath APRN Active PROAIR HFA 108 (90 Base) MCG/ACT INHALATION AEROSOL SOLUTION 2 puffs every 4 hours as needed ALBUTEROL SULFATE 83814675449 No Longer Active Griselda Horvath APRN Active CEFTIN 500 MG ORAL TABLET 1 tablet by mouth twice daily for ten days. CEFUROXIME AXETIL 72082792832 No Longer Active Griselda Horvath APRN Active PREDNISONE 20 MG ORAL TABLET 2 tabs daily for 3 days, 1 tab daily for 3 days, 1/2 tab daily for 2 days PREDNISONE 97353322430 No Longer Active Margarito Kelley MD Active CEPHALEXIN 500 MG ORAL CAPSULE 1 tablet by mouth three times daily for ten days CEPHALEXIN 71252629208 No Longer Active Renée Adames APRN Active MEDROL 4 MG ORAL TABLET THERAPY PACK 6 pills on day 1, 5 pills on day 2, 4 pills on day 3, 4 pills on day 4, 2 pills on day 5, 1 pill on day 6 METHYLPREDNISOLONE 33588764281 No Longer Active Annita Mejia MD PhD Active ZITHROMAX Z-MARY 250 MG ORAL TABLET 2 today and then 1 daily for 4 days 03/11 AZITHROMYCIN 51532084778 No Longer Active Annita Mejia MD PhD Active GUAIFENESIN-CODEINE 100-10 MG/5ML ORAL SYRUP 5ml every 4 to 6 hours as needed for cough GUAIFENESIN-CODEINE 80040758418 No Longer Active Annita Mejia MD PhD Active FLONASE 50 MCG/ACT NASAL SUSPENSION 1 spray each nostril am and hs FLUTICASONE PROPIONATE 87898160395 No Longer Active Kendell Coronado MD Active MELOXICAM 15 MG ORAL TABLET 1 po q day for pain with food MELOXICAM 47278303293 No Longer Active Kendell Coronado MD Active HYDROCODONE-ACETAMINOPHEN 5-325 MG ORAL TABLET 1-2 q 4-6 hrs prn pain 20 tabs HYDROCODONE-ACETAMINOPHEN 11072061191 No Longer Active Daniele Mcfadden DO Active PREDNISONE 20 MG ORAL TABLET 1 tablet twice daily for 2 days, then 1 tablet once daily for 2 days PREDNISONE 45519043206 No Longer Active Daniele Mcfadden DO Active PREDNISONE 20 MG ORAL TABLET 1 po bid 2 days, then daily for 2 days PREDNISONE 79069381340 No Longer Active Alexander LOPEZ Active AZITHROMYCIN 250 MG ORAL TABLET 2 po qd x 1 day, then 1 po qd x 4 days 08/05 AZITHROMYCIN 14055832793 No Longer Active Daniele Mcfadden DO Active MUCINEX MAXIMUM STRENGTH TABLET EXTENDED RELEASE 12 HOUR 1 po qd GUAIFENESIN [id number] 79928630941 No Longer Active Daniele Mcfadden DO Active AZITHROMYCIN 250 MG ORAL TABLET 2 po qd x 1 day, then 1 po qd x 4 days 11/26 AZITHROMYCIN 36697871414 No Longer Active Margarito Kelley MD Active MUCINEX MAXIMUM STRENGTH TABLET EXTENDED RELEASE 12 HOUR 1 po qd MUCINEX MAXIMUM STRENGTH TABLET EXTENDED RELEASE 12 HOUR GUAIFENESIN [id number] Inactive PREDNISONE 20 MG ORAL TABLET 1 po bid 2 days, then daily for 2 days PREDNISONE 20 MG ORAL TABLET 948183 PREDNISONE Inactive PREDNISONE 20 MG ORAL TABLET 1 tablet twice daily for 2 days, then 1 tablet once daily for 2 days PREDNISONE 20 MG ORAL TABLET 343570 PREDNISONE Inactive HYDROCODONE-ACETAMINOPHEN 5-325 MG ORAL TABLET 1-2 q 4-6 hrs prn pain 20 tabs HYDROCODONE-ACETAMINOPHEN 5-325 MG ORAL TABLET 810208 HYDROCODONE-ACETAMINOPHEN Inactive MELOXICAM 15 MG ORAL TABLET 1 po q day for pain with food MELOXICAM 15 MG ORAL TABLET 755669 MELOXICAM Inactive FLONASE 50 MCG/ACT NASAL SUSPENSION 1 spray each nostril am and hs FLONASE 50 MCG/ACT NASAL SUSPENSION 3633953 FLUTICASONE PROPIONATE Inactive GUAIFENESIN-CODEINE 100-10 MG/5ML ORAL SYRUP 5ml every 4 to 6 hours as needed for cough GUAIFENESIN-CODEINE 100-10 MG/5ML ORAL SYRUP 366879 GUAIFENESIN-CODEINE Inactive ZITHROMAX Z-MARY 250 MG ORAL TABLET 2 today and then 1 daily for 4 days 03/11 ZITHROMAX Z-MARY 250 MG ORAL TABLET 239485 AZITHROMYCIN Inactive CEFTIN 500 MG ORAL TABLET 1 tablet by mouth twice daily for ten days. CEFTIN 500 MG ORAL TABLET 363331 CEFUROXIME AXETIL Inactive PROAIR HFA 108 (90 [...] CONGESTION TABLET EXTENDED RELEASE 12 HOUR FEXOFENADINE-PSEUDOEPHEDRINE [id number] Inactive PREDNISONE 20 MG ORAL TABLET 1 tablet twice daily for 2 days, then 1 tablet once daily for 2 days PREDNISONE 20 MG ORAL TABLET 468440 PREDNISONE Inactive GUAIFENESIN ER 600 MG ORAL TABLET EXTENDED RELEASE 12 HOUR 1 twice a day as needed for congestion GUAIFENESIN ER 600 MG ORAL TABLET EXTENDED RELEASE 12 HOUR GUAIFENESIN Inactive FLUTICASONE PROPIONATE 50 MCG/ACT NASAL SUSPENSION 1 to 2 sprays each nostril daily FLUTICASONE PROPIONATE 50 MCG/ACT NASAL SUSPENSION 4623364 FLUTICASONE PROPIONATE Inactive MUCINEX D 60-600 MG ORAL TABLET EXTENDED RELEASE 12 HOUR 1 po BID PRN Congestion MUCINEX D 60-600 MG ORAL TABLET EXTENDED RELEASE 12 HOUR PSEUDOEPHEDRINE-GUAIFENESIN Inactive PREDNISONE 20 MG ORAL TABLET two tabs by mouth today, then one tab by mouth days two and three PREDNISONE 20 MG ORAL TABLET 398403 PREDNISONE Inactive PREDNISONE 10 MG ORAL TABLET 2 TABS BY MOUTH TODAY, THEN 1 TAB BY MOUTH DAYS 2 -5 PREDNISONE 10 MG ORAL TABLET 098003 PREDNISONE Inactive AZITHROMYCIN 250 MG ORAL TABLET 2 po qd x 1 day, then 1 po qd x 4 days 11/26 AZITHROMYCIN 250 MG ORAL TABLET 159942 AZITHROMYCIN Inactive AZITHROMYCIN 250 MG ORAL TABLET 2 po qd x 1 day, then 1 po qd x 4 days 08/05 AZITHROMYCIN 250 MG ORAL TABLET 654828 AZITHROMYCIN Inactive MEDROL 4 MG ORAL TABLET THERAPY PACK 6 pills on day 1, 5 pills on day 2, 4 pills on day 3, 4 pills on day 4, 2 pills on day 5, 1 pill on day 6 MEDROL 4 MG ORAL TABLET THERAPY PACK 026182 METHYLPREDNISOLONE Inactive CEPHALEXIN 500 MG ORAL CAPSULE 1 tablet by mouth three times daily for ten days CEPHALEXIN 500 MG ORAL CAPSULE 187218 CEPHALEXIN Inactive PREDNISONE 20 MG ORAL TABLET 2 tabs daily for 3 days, 1 tab daily for 3 days, 1/2 tab daily for 2 days PREDNISONE 20 MG ORAL TABLET 468478 PREDNISONE Inactive CEFDINIR 300 MG ORAL CAPSULE 1 cap by mouth twice a day CEFDINIR 300 MG ORAL CAPSULE 712950 CEFDINIR Inactive PREDNISONE 20 MG ORAL TABLET 2 tabs daily for 3 days, 1 tab daily for 3 days, 1/2 tab daily for 2 days PREDNISONE 20 MG ORAL TABLET 952878 PREDNISONE Inactive PREDNISONE 20 MG ORAL TABLET 2 tabs daily for 3 days, 1 tab daily for 3 days, 1/2 tab daily for 2 days PREDNISONE 20 MG ORAL TABLET 867873 PREDNISONE Inactive CEFDINIR 300 MG ORAL CAPSULE by mouth twice a day CEFDINIR 300 MG ORAL CAPSULE 081971 CEFDINIR Inactive PREDNISONE 20 MG ORAL TABLET 2 tabs daily for 3 days, 1 tab daily for 3 days, 1/2 tab daily for 2 days PREDNISONE 20 MG ORAL TABLET 251877 PREDNISONE Inactive CEFDINIR 300 MG ORAL CAPSULE 1 po BID x 10 days CEFDINIR 300 MG ORAL CAPSULE 541387 CEFDINIR Inactive AZITHROMYCIN 250 MG ORAL TABLET 2 po qd x 1 day, then 1 po qd x 4 days 08/30 AZITHROMYCIN 250 MG ORAL TABLET 083924 AZITHROMYCIN Inactive PREDNISONE 20 MG ORAL TABLET 2 tabs daily for 3 days, 1 tab daily for 3 days, 1/2 tab daily for 2 days start tomorrow 07/31/16 PREDNISONE 20 MG ORAL TABLET 150962 PREDNISONE Inactive AZITHROMYCIN 250 MG ORAL TABLET 2 po qd x 1 day, then 1 po qd x 4 days 07/24 AZITHROMYCIN 250 MG ORAL TABLET 545969 AZITHROMYCIN Inactive Immunizations Vaccine Administration Date Value Standard Description Human Papillomavirus vaccine (Gardasil) #2, (HPV #2) Gardasil [ CVX62] human papilloma virus vaccine, quadrivalent Seasonal influenza vaccine, injectable, containing preservative, for > 3 years old (Afluria, FluLaval, Fluzone, Fluvirin, Fluarix, Agriflu(>=18 yo)) Fluzone (>3 yrs.) [CEK512] Influenza, seasonal, injectable Human Papillomavirus Vaccine (Gardasil) #1 Given (HPV #1) Gardasil [CVX62] human papilloma virus vaccine, quadrivalent hepatitis A immunization #2 Havrix-Pedi hepatitis A vaccine, unspecified formulation Boostrix (Tetanus toxoid, reduced diphtheria toxoid and acellular pertussis vaccine, adsorbed), booster Boostrix [LBB352] tetanus toxoid, reduced diphtheria toxoid, and acellular [...] temperature weight E&M 212 [lb_av] Weight Measured Diagnostic Results Date Name Value Unit Range Description Lab Report: Rapid Strep - Lab Microbial identification kit, rapid strep method Negative Negative Lab Report: SHANI INFLUENZA A/B, RapidStrep Rflx/Cx - Lab Microbial identification kit, rapid strep method Negative-Throat Culture to Follow Negative Lab Report: SHANI INFLUENZA A/B, RapidStrep Rflx/Cx - Toxicology rapid flu test Negative Negative;Positive Encounters Code Encounter Date Provider Facility CPT-30224 Level 3 Est. Patient 09:35:49 [employer] Daniele Mcfadden [facility] CPT-67646 Level 3 Est. Patient 09:35:25 [employer] Daniele Mcfadden [facility] CPT-03014 Level 3 Est. Patient 16:03:55 [employer] Whitley Quiroz [facility] CPT-83935 Level 3 Est. Patient 17:42:49 [employer] Whitley Quiroz [facility] CPT-20756 Level 3 Est. Patient 10:49:47 [employer] Griselda Horvath [facility]-05750 Level 3 Est. Patient 08:43:59 [employer] Jessika Nunes [facility] CPT-67629 Level 3 Est. Patient 09:05:19 [employer] Griselda Horvath [facility] CPT-64025 Level 3 Est. Patient 15:45:46 CDT Griselda Horvath [facility] CPT-34311 Level 3 Est. Patient 14:15:52 CDT Daniele Mcfadden [facility] CPT-02498 Level 3 Est. Patient 13:57:19 [employer] Margarito Kelley MD [facility] CPT-79359 Level 3 Est. Patient 09:16:05 [employer] Margarito Kelley MD [facility] CPT-68310 Level 3 Est. Patient 15:37:06 [employer] Daniele Mcfadden [facility] CPT-93486 Level 3 Est. Patient 11:56:34 [employer] Renée Adames [facility] CPT-06655 Level 3 Est. Patient 12:19:42 CDT Daniele Mcfadden [facility] CPT-42810 Level 3 Est. Patient 11:08:45 CDT Annita Mejia MD PhD [facility] CPT-12824 Level 3 Est. Patient 12:00:17 CDT Kendell Coronado MD [facility]-59573 Level 3 Est. Patient 12:27:25 CDT Daniele Mcfadden [facility] CPT-95628 Level 3 Est. Patient 18:45:11 [employer] Daniele Mcfadden [facility] CPT-65413 Level 3 Est. Patient 10:12:24 [employer] Daniele Mcfadden [facility] CPT-69902 Level 3 Est. Patient 14:35:11 [employer] Daniele Mcfadden [facility] CPT-76081 Level 3 Est. Patient 14:11:04 CDT Daniele Mcfadden [facility] CPT-93098 Level 3 Est. Patient 10:52:13 CDT Alexander LOPEZ [facility] CPT-38277 Level 3 Est. Patient 11:01:08 [employer] Daniele Mcfadden [facility] CPT-35167 Level 3 Est. Patient 10:55:35 CDT Daniele Mcfadden [facility] CPT-13114 Level 3 Est. Patient 14:03:08 CDT Daniele Salter Bogdan [facility] CPT-31389 Level 3 Est. Patient 11:26:19 CDT Margarito Kelley MD [facility] CPT-04812 Level 2 Est. Patient 15:32:04 [employer] Daniele Mcfadden [facility] CPT-99439 Level 3 Est. Patient 16:01:26 [employer] Daniele Mcfadden [facility] CPT-43927 Level 3 Est. Patient 06:37:10 [employer] Daniele [facility] Procedures Code Procedure Name Date Entry Date Standard Description CPT-76409 Addl Vx - Ix admin via ID IM or jet injects without counseling by physician 14:37:19 CDT CPT-65831 Meningococcal B, recombinant vaccine 14:37:19 CDT 03/05 CPT-04545 First Vx - Ix admin via ID IM or jet injects without counseling by physician 14:37:19 CDT CPT-97825 Menveo Intramuscular Solution Reconstituted 14:37:19 CDT CPT-78391 Meningococcal Conjugate Vacine (Menactra) 11:20:04 CDT CPT-19932 Throat Culture - LAB USE ONLY 12:15:45 [employer] CPT-07140 Shani Flu A/B - LAB USE ONLY 12:15:45 [employer] CPT-19496 Rapid Strep (Reflex throat) - LAB USE ONLY 12:15:45 [employer] CPT-83445 Rapid Strep (Grp A) - LAB USE ONLY 13:06:06 CDT CPT-81102 Abd compl w upright 12:34:39 CDT CPT-29429 Immunization Single Admin 11:38:41 CDT CPT-48530 Fluzone Quadrivalent Intramuscular Suspension 0.5 ML 11: 38:41 CDT CPT-OV Office Visit 14:45:12 [employer] CPT-13045 [employer] inc all organs plus proximal aorta and distal IVC 2012 12:13:02 [employer] CPT-28352 Abd compl w upright 15:12:58 [employer] CPT-91245 Venipuncture Draw Fee 14:38:32 [employer] CPT-59944 Administration single or combination vaccine inc oral 17 :10:04 CDT CPT-10471 Gardasil 17:10:04 CDT CPT-19635 Venipuncture Draw Fee 16:07:54 [employer] CPT-81173 Administration 2+ single or combination vaccines inc oral 17:22:02 CDT CPT-75112 Administration single or combination vaccine inc oral 17 :22:02 CDT CPT-86987 Influenza split virus > age 3 17:22:02 CDT CPT-92924 Gardasil 17:22:02 CDT CPT-91782 Administration 2+ single or combination vaccines inc oral 14:38:31 CDT CPT-75424 Administration single or combination vaccine inc oral 14 :38:31 CDT CPT-67242 Meningococcal Conjugate Vacine (Menactra) 14:38:31 CDT CPT-88791 Gardasil 14:38:31 CDT
--- OUTSIDE RECORDS SUMMARY | 2018-02-15 06:49 | XMS REPORT | Clinical Summary ---
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 Unspecified sinusitis (chronic) Eustachian tube dysfunction, right [...] Status Provider Patient Instruction GUAIFENESIN 600 MG [id number] 1 twice a day as needed for congestion GUAIFENESIN 74482624611 Active Jillina Frazell [employer] FIELD SERVICE ENGINEER Active FLUTICASONE PROPIONATE 50 MCG/ACT SUSP 1 to 2 sprays each nostril daily 03/20 FLUTICASONE PROPIONATE 48362757328 Active Jillina Frazell BI[employer] FIELD SERVICE ENGINEER Active CEFDINIR 300 MG CAPS by mouth twice a day CEFDINIR 47541138262 No Longer Active Jillina Frazell [employer] FIELD SERVICE ENGINEER Active PREDNISONE 20 MG TAB 1 tablet twice daily for 2 days, then 1 tablet once daily for 2 days PREDNISONE 58402020538 No Longer Active Jillina Frazell [employer] FIELD SERVICE ENGINEER Active PREDNISONE 20 MG TAB 2 tabs daily for 3 days, 1 tab daily for 3 days, 1/2 tab daily for 2 days PREDNISONE 26619397233 No Longer Active Margarito Kelley MD Active IRVING-D ALLERGY & CONGESTION [id number] 1 po bid FEXOFENADINE-PSEUDOEPHEDRINE [id number] 32470840256 No Longer Active Margarito Kelley MD Active PREDNISONE 20 MG TAB 2 tabs daily for 3 days, 1 tab daily for 3 days, 1/2 tab daily for 2 days PREDNISONE 83636444912 No Longer Active Jillina Frazell [employer] FIELD SERVICE ENGINEER Active CEFDINIR 300 MG CAPS 1 cap by mouth twice a day CEFDINIR 45820384144 No Longer Active Jillina Frazell BIOM[employer]ICAL FIELD SERVICE ENGINEER Active E-Z SPACER ERIBERTO use with proair inhalier every 4 times as need. SPACER/AERO-HOLDING CHAMBERS 34202839108 No Longer Active Jillina Frazell BI[employer] FIELD SERVICE ENGINEER Active PROAIR HFA 108 (90 BASE) MCG/ACT AERS 2 puffs every 4 hours as needed 2014 ALBUTEROL SULFATE 31965655676 No Longer Active Jillina Frazell BIOM[employer]ICAL FIELD SERVICE ENGINEER Active CEFTIN 500 MG TAB 1 tablet by mouth twice daily for ten days. CEFUROXIME AXETIL 09060556346 No Longer Active Jillina Frazell [employer] FIELD SERVICE ENGINEER Active PREDNISONE 20 MG TAB 2 tabs daily for 3 days, 1 tab daily for 3 days, 1/2 tab daily for 2 days PREDNISONE 65810955306 No Longer Active Margarito Kelley MD Active CEPHALEXIN 500 MG CAPS 1 tablet by mouth three times daily for ten days 06/25 CEPHALEXIN 37998985438 No Longer Active Renée Adames ALEX Active MEDROL (MARY) 4 MG TABS 6 pills on day 1, 5 pills on day 2, 4 pills on day 3, 4 pills on day 4, 2 pills on day 5, 1 pill on day 6 METHYLPREDNISOLONE 24271129217 No Longer Active Annita Mejia MD PhD Active ZITHROMAX Z-MARY 250 MG TABS 2 today and then 1 daily for 4 days AZITHROMYCIN 74641212725 No Longer Active Annita Mejia MD PhD Active GUAIFENESIN-CODEINE 100-10 MG/5ML SYRP 5ml every 4 to 6 hours as needed for cough GUAIFENESIN-CODEINE 01589031604 No Longer Active Annita Mejia MD PhD Active FLONASE 50 MCG/ACT SUSP 1 spray each nostril am and hs FLUTICASONE PROPIONATE 63879208234 No Longer Active Kendell Coronado MD Active MELOXICAM 15 MG TABS 1 po q day for pain with food MELOXICAM 57871194010 No Longer Active Kendell Coronado MD Active HYDROCODONE-ACETAMINOPHEN 5-325 MG TABS 1-2 q 4-6 hrs prn pain 20 tabs 07/04 HYDROCODONE-ACETAMINOPHEN 32617740990 No Longer Active Daniele Mcfadden DO Active PREDNISONE 20 MG TAB 1 tablet twice daily for 2 days, then 1 tablet once daily for 2 days PREDNISONE 20435593027 No Longer Active Daniele Mcfadden DO Active PREDNISONE 20 MG TAB 1 po bid 2 days, then daily for 2 days 12/27 PREDNISONE 86531677039 No Longer Active Alexander LOPEZ Active AZITHROMYCIN 250 MG TABS 2 po qd x 1 day, then 1 po qd x 4 days AZITHROMYCIN 48692650260 No Longer Active Daniele Mcfadden DO Active MUCINEX MAXIMUM STRENGTH [id number] 1 po qd GUAIFENESIN XR12H- TAB 49749394777 No Longer Active Daniele Mcfadden DO Active AZITHROMYCIN 250 MG TABS 2 po qd x 1 day, then 1 po qd x 4 days AZITHROMYCIN 36615158349 No Longer Active Margarito Kelley MD Active MUCINEX MAXIMUM STRENGTH [id number] 1 po qd MUCINEX MAXIMUM STRENGTH [id number]-PVO GUAIFENESIN OU30L-[id number] Inactive PREDNISONE 20 MG TAB 1 po bid 2 days, then daily for 2 days 12/27 PREDNISONE 20 MG TAB 252861 PREDNISONE Inactive PREDNISONE 20 MG TAB 1 tablet twice daily for 2 days, then 1 tablet once daily for 2 days PREDNISONE 20 MG TAB 985445 PREDNISONE Inactive HYDROCODONE-ACETAMINOPHEN 5-325 MG TABS 1-2 q 4-6 hrs prn pain 20 tabs 07/04 HYDROCODONE-ACETAMINOPHEN 5-325 MG TABS 113398 HYDROCODONE- ACETAMINOPHEN Inactive MELOXICAM 15 MG TABS 1 po q day for pain with food MELOXICAM 15 MG TABS 477069 MELOXICAM Inactive FLONASE 50 MCG/ACT SUSP 1 spray each nostril am and hs FLONASE 50 MCG/ACT SUSP FLUTICASONE PROPIONATE Inactive GUAIFENESIN-CODEINE 100-10 MG/5ML SYRP 5ml every 4 to 6 hours as needed for cough GUAIFENESIN-CODEINE 100-10 MG/5ML SYRP 777427 GUAIFENESIN-CODEINE Inactive ZITHROMAX Z-MARY 250 MG TABS 2 today and then 1 daily for 4 days ZITHROMAX Z-MARY 250 MG TABS 2985361 AZITHROMYCIN Inactive CEFTIN 500 MG TAB 1 tablet by mouth twice daily for ten days. CEFTIN 500 MG TAB 455690 CEFUROXIME AXETIL Inactive PROAIR HFA 108 (90 BASE) MCG/ACT AERS 2 puffs every 4 hours as needed 2014 PROAIR HFA 108 (90 BASE) MCG/ACT AERS ALBUTEROL SULFATE Inactive E-Z SPACER ERIBERTO use with proair inhalier every 4 times as need. E-Z SPACER ERIBERTO SPACER/AERO-HOLDING CHAMBERS Inactive IRVING-D ALLERGY & CONGESTION [id number] 1 po bid IRVING-D ALLERGY & CONGESTION [id number] FEXOFENADINE-PSEUDOEPHEDRINE XR12H- TAB Inactive PREDNISONE 20 MG TAB 1 tablet twice daily for 2 days, then 1 tablet once daily for 2 days PREDNISONE 20 MG TAB 642386 PREDNISONE Inactive AZITHROMYCIN 250 MG TABS 2 po qd x 1 day, then 1 po qd x 4 days AZITHROMYCIN 250 MG TABS 3037383 AZITHROMYCIN Inactive AZITHROMYCIN 250 MG TABS 2 po qd x 1 day, then 1 po qd x 4 days AZITHROMYCIN 250 MG TABS 8002676 AZITHROMYCIN Inactive MEDROL (MARY) 4 MG TABS 6 pills on day 1, 5 pills on day 2, 4 pills on day 3, 4 pills on day 4, 2 pills on day 5, 1 pill on day 6 MEDROL (MARY) 4 MG TABS 429661 METHYLPREDNISOLONE Inactive CEPHALEXIN 500 MG CAPS 1 tablet by mouth three times daily for ten days 06/25 CEPHALEXIN 500 MG CAPS 510842 CEPHALEXIN Inactive PREDNISONE 20 MG TAB 2 tabs daily for 3 days, 1 tab daily for 3 days, 1/2 tab daily for 2 days PREDNISONE 20 MG TAB 948584 PREDNISONE Inactive CEFDINIR 300 MG CAPS 1 cap by mouth twice a day CEFDINIR 300 MG CAPS 285885 CEFDINIR Inactive PREDNISONE 20 MG TAB 2 tabs daily for 3 days, 1 tab daily for 3 days, 1/2 tab daily for 2 days PREDNISONE 20 MG TAB 419306 PREDNISONE Inactive PREDNISONE 20 MG TAB 2 tabs daily for 3 days, 1 tab daily for 3 days, 1/2 tab daily for 2 days PREDNISONE 20 MG TAB 165556 PREDNISONE Inactive CEFDINIR 300 MG CAPS by mouth twice a day CEFDINIR 300 MG CAPS 492818 CEFDINIR Inactive Immunizations Vaccine Administration Date Value Standard Description Human Papillomavirus vaccine (Gardasil) #2, (HPV #2) Gardasil [ CVX62] human papilloma virus vaccine, quadrivalent Seasonal influenza vaccine, injectable, containing preservative, for > 3 years old (Afluria, FluLaval, Fluzone, Fluvirin, Fluarix, Agriflu(>=18 yo)) Fluzone (>3 yrs.) [GRG098] Influenza, seasonal, injectable Human Papillomavirus Vaccine (Gardasil) #1 Given (HPV #1) Gardasil [CVX62] human papilloma virus vaccine, quadrivalent hepatitis A immunization #2 Havrix-Pedi hepatitis A vaccine, unspecified formulation Boostrix (Tetanus toxoid, reduced diphtheria toxoid and acellular pertussis vaccine, adsorbed), booster Boostrix [[id number]] tetanus toxoid, reduced diphtheria toxoid, and acellular [...] Range Description blood pressure, diastolic - 8462-4 77 mm[Hg] [...] Negative Encounters Code Encounter Date Provider Facility CPT-02483 Level 3 Est. Patient 15:45:46 CDT Griselda Horvath [facility]-22417 Level 3 Est. Patient 14:15:52 CDT Daniele Mcfadden [facility]-59835 Level 3 Est. Patient 13:57:19 [employer] CLE[employer] Margarito Kelley MD -[id number] Level 3 Est. Patient 09:16:05 [employer] Margarito Kelley MD -[id number] Level 3 Est. Patient 15:37:06 [employer] CLE[employer] Daniele Mcfadden [facility] CPT-35126 Level 3 Est. Patient 11:56:34 [employer] CLE[employer]ER Renée Adames [facility] CPT-32558 Level 3 Est. Patient 12:19:42 CDT Daniele Mcfadden [facility] CPT-86539 Level 3 Est. Patient 11:08:45 CDT Annita Mejia MD PhD [facility] CPT-76162 Level 3 Est. Patient 12:00:17 CDT Kendell Coronado MD [facility]-15694 Level 3 Est. Patient 12:27:25 CDT Daniele Mcfadden [facility] CPT-49528 Level 3 Est. Patient 18:45:11 [employer] Daniele Mcfadden [facility] CPT-87925 Level 3 Est. Patient 10:12:24 [employer] Daniele Mcfadden [facility] CPT-97019 Level 3 Est. Patient 14:35:11 [employer] CLE[employer] Daniele Mcfadden [facility] CPT-49583 Level 3 Est. Patient 14:11:04 CDT Daniele Mcfadden [facility] CPT-36384 Level 3 Est. Patient 10:52:13 CDT Alexander LOPEZ [facility] CPT-25653 Level 3 Est. Patient 11:01:08 [employer] Daniele Mcfadden [facility] CPT-31148 Level 3 Est. Patient 10:55:35 CDT Daniele Mcfadden [facility] CPT-96369 Level 3 Est. Patient 14:03:08 CDT Daniele Mcfadden [facility] CPT-87273 Level 3 Est. Patient 11:26:19 CDT Margarito Kelley MD [facility] CPT-32315 Level 2 Est. Patient 15:32:04 [employer] CLE[employer] Daniele Mcfadden [facility] CPT-50625 Level 3 Est. Patient 16:01:26 [employer] CLE[employer]ER Daniele Mcfadden [facility] CPT-88010 Level 3 Est. Patient 06:37:10 [employer] CLE[employer] Daniele Mcfadden [facility] Procedures Code Procedure Name Date Entry Date Standard Description CPT-19137 Rapid Strep (Grp A) - LAB USE ONLY 13:06:06 CDT CPT-09482 Abd compl w upright 12:34:39 CDT CPT-66017 Immunization Single Admin 11:38:41 CDT CPT-10337 Fluzone Quadrivalent Intramuscular Suspension 0.5 ML 11: 38:41 CDT CPT-OV Office Visit 14:45:12 [employer] CPT-46249 [employer]d [employer] inc all organs plus proximal aorta and distal IVC 2012 12:13:02 [employer] CPT-71593 Abd compl w upright 15:12:58 [employer] CPT-21481 Venipuncture Draw Fee 14:38:32 [employer] CPT-21624 Administration single or combination vaccine inc oral 17 :10:04 CDT CPT-58337 Gardasil 17:10:04 CDT CPT-96540 Venipuncture Draw Fee 16:07:54 [employer] CPT-22835 Administration 2+ single or combination vaccines inc oral 17:22:02 CDT CPT-58376 Administration single or combination vaccine inc oral 17 :22:02 CDT CPT-48632 Influenza split virus > age 3 17:22:02 CDT CPT-12404 Gardasil 17:22:02 CDT CPT-56411 Administration 2+ single or combination vaccines inc oral 14:38:31 CDT CPT-86076 Administration single or combination vaccine inc oral 14 :38:31 CDT CPT-66127 Meningococcal Conjugate Vacine (Menactra) 14:38:31 CDT CPT-96687 Gardasil 14:38:31 CDT
--- OUTSIDE RECORDS SUMMARY | 2018-02-15 06:50 | XMS REPORT | Clinical Summary ---
Author Author Admin, Ludmila Organization [employer] [facility] Address Unknown Phone Unavailable Allergies, [...] Whitley Hernandez Acute pharyngitis URI 465.9 Resolved Whtiley Hernandez Acute upper respiratory infections of unspecified [...] Brandan BOWMAN Pharyngitis-Acute ICD-462 Inactive Katie Gipson VICE PRESIDENT OF OPERATIONS URI ICD-465.9 Inactive Katie Gipson VICE PRESIDENT OF OPERATIONS Allergic rhinitis ICD-477.9 Inactive Katie Gipson VICE PRESIDENT OF OPERATIONS Acute rhinosinusitis ICD-461.9 Inactive Katie Gipson VICE PRESIDENT OF OPERATIONS Fever ICD-780.60 Inactive Katie Gipsonfredrick [facility] Immunization due ICD-V15.83 Inactive Katie Gipson VICE PRESIDENT OF OPERATIONS Medication List Medication Instructions Start Date Stop Date Generic Name NDC Status Provider Patient Instruction PREDNISONE 10 MG ORAL TABLET 2 TABS BY MOUTH TODAY, THEN 1 TAB BY MOUTH DAYS 2 -5 PREDNISONE [id number] Active Daniele Mcfadden DO Active PREDNISONE 20 MG ORAL TABLET two tabs by mouth today, then one tab by mouth days two and three PREDNISONE 08705247060 No Longer Active Whitley Hernandez Active AZITHROMYCIN 250 MG ORAL TABLET 2 po qd x 1 day, then 1 po qd x 4 days 07/24 AZITHROMYCIN 58457178099 Active Daniele Mcfadden DO Active IRVING-D ALLERGY & CONGESTION 60-120 MG ORAL TABLET EXTENDED RELEASE 12 HOUR 1 tablet twice daily as needed for congestion/allergies FEXOFENADINE-PSEUDOEPHEDRINE 38482477978 Active Holly Sharma Active PREDNISONE 20 MG ORAL TABLET 2 tabs daily for 3 days, 1 tab daily for 3 days, 1/2 tab daily for 2 days start tomorrow 07/31/16 PREDNISONE 12718928790 No Longer Active Jillina Alexandru JOHNSON Active AZITHROMYCIN 250 MG ORAL TABLET 2 po qd x 1 day, then 1 po qd x 4 days 08/30 AZITHROMYCIN 10056642299 No Longer Active Jillina Alexandru JOHNSON Active MUCINEX D 60-600 MG ORAL TABLET EXTENDED RELEASE 12 HOUR 1 po BID PRN Congestion PSEUDOEPHEDRINE-GUAIFENESIN 47099402772 No Longer Active Jessika Nunes APRN Active CEFDINIR 300 MG ORAL CAPSULE 1 po BID x 10 days CEFDINIR 52157504166 No Longer Active Jillina Jonyzell AUGER MACHINE OFFBEARER Active PREDNISONE 20 MG ORAL TABLET 2 tabs daily for 3 days, 1 tab daily for 3 days, 1/2 tab daily for 2 days PREDNISONE 22672723245 No Longer Active Jillina Frazell AUGER MACHINE OFFBEARER Active FLUTICASONE PROPIONATE 50 MCG/ACT NASAL SUSPENSION 1 to 2 sprays each nostril daily FLUTICASONE PROPIONATE 75262728364 No Longer Active Jillina Frazell AUGER MACHINE OFFBEARER Active GUAIFENESIN ER 600 MG ORAL TABLET EXTENDED RELEASE 12 HOUR 1 twice a day as needed for congestion GUAIFENESIN 53047771141 No Longer Active Ezekielllina Framarkl AUGER MACHINE OFFBEARER Active CEFDINIR 300 MG ORAL CAPSULE by mouth twice a day CEFDINIR 72750146338 No Longer Active Jillina Frazell AUGER MACHINE OFFBEARER Active PREDNISONE 20 MG ORAL TABLET 1 tablet twice daily for 2 days, then 1 tablet once daily for 2 days PREDNISONE 06650999288 No Longer Active Jillina Framarkl AUGER MACHINE OFFBEARER Active PREDNISONE 20 MG ORAL TABLET 2 tabs daily for 3 days, 1 tab daily for 3 days, 1/2 tab daily for 2 days PREDNISONE 17284540961 No Longer Active Margarito Kelley MD Active IRVING-D ALLERGY & CONGESTION TABLET EXTENDED RELEASE 12 HOUR 1 po bid 05/26 FEXOFENADINE-PSEUDOEPHEDRINE [id number] 13780806878 No Longer Active Margarito Kelley MD Active PREDNISONE 20 MG ORAL TABLET 2 tabs daily for 3 days, 1 tab daily for 3 days, 1/2 tab daily for 2 days PREDNISONE 10853946421 No Longer Active Ezekielllina Jiml ALEX Active CEFDINIR 300 MG ORAL CAPSULE 1 cap by mouth twice a day CEFDINIR 65333480756 No Longer Active Jillina Frazell AUGER MACHINE OFFBEARER Active E-Z SPACER DEVICE use with proair inhalier every 4 times as need. SPACER/AERO-HOLDING CHAMBERS 08836728963 No Longer Active Jillina Jiml AUGER MACHINE OFFBEARER Active PROAIR HFA 108 (90 Base) MCG/ACT INHALATION AEROSOL SOLUTION 2 puffs every 4 hours as needed ALBUTEROL SULFATE 58345526051 No Longer Active Ezekielllina Alexandru ONTIVEROSN Active CEFTIN 500 MG ORAL TABLET 1 tablet by mouth twice daily for ten days. CEFUROXIME AXETIL 68931035361 No Longer Active Ezekielllina Alexandru ONTIVEROSN Active PREDNISONE 20 MG ORAL TABLET 2 tabs daily for 3 days, 1 tab daily for 3 days, 1/2 tab daily for 2 days PREDNISONE 54429678264 No Longer Active Margarito Kelley MD Active CEPHALEXIN 500 MG ORAL CAPSULE 1 tablet by mouth three times daily for ten days CEPHALEXIN 52555939124 No Longer Active Renée Adames ALEX Active MEDROL 4 MG ORAL TABLET THERAPY PACK 6 pills on day 1, 5 pills on day 2, 4 pills on day 3, 4 pills on day 4, 2 pills on day 5, 1 pill on day 6 METHYLPREDNISOLONE 15989470245 No Longer Active Annita Mejia MD PhD Active ZITHROMAX Z-MARY 250 MG ORAL TABLET 2 today and then 1 daily for 4 days 03/11 AZITHROMYCIN 08086114066 No Longer Active Annita Mejia MD PhD Active GUAIFENESIN-CODEINE 100-10 MG/5ML ORAL SYRUP 5ml every 4 to 6 hours as needed for cough GUAIFENESIN-CODEINE 77385785996 No Longer Active Annita Mejia MD PhD Active FLONASE 50 MCG/ACT NASAL SUSPENSION 1 spray each nostril am and hs FLUTICASONE PROPIONATE 91774386416 No Longer Active Kendell Coronado MD Active MELOXICAM 15 MG ORAL TABLET 1 po q day for pain with food MELOXICAM 54936447939 No Longer Active Kendell Coronado MD Active HYDROCODONE-ACETAMINOPHEN 5-325 MG ORAL TABLET 1-2 q 4-6 hrs prn pain 20 tabs HYDROCODONE-ACETAMINOPHEN 11863771298 No Longer Active Daniele Mcfadden DO Active PREDNISONE 20 MG ORAL TABLET 1 tablet twice daily for 2 days, then 1 tablet once daily for 2 days PREDNISONE 70648875824 No Longer Active Daniele Mcfadden DO Active PREDNISONE 20 MG ORAL TABLET 1 po bid 2 days, then daily for 2 days PREDNISONE 28819475534 No Longer Active Alexander LOPEZ Active AZITHROMYCIN 250 MG ORAL TABLET 2 po qd x 1 day, then 1 po qd x 4 days 08/05 AZITHROMYCIN 69904178294 No Longer Active Daniele Mcfadden DO Active MUCINEX MAXIMUM STRENGTH TABLET EXTENDED RELEASE 12 HOUR 1 po qd GUAIFENESIN [id number] 68305197605 No Longer Active Daniele Mcfadden DO Active AZITHROMYCIN 250 MG ORAL TABLET 2 po qd x 1 day, then 1 po qd x 4 days 11/26 AZITHROMYCIN 62887573659 No Longer Active Margarito Kelley MD Active MUCINEX MAXIMUM STRENGTH TABLET EXTENDED RELEASE 12 HOUR 1 po qd MUCINEX MAXIMUM STRENGTH TABLET EXTENDED RELEASE 12 HOUR GUAIFENESIN [id number] Inactive PREDNISONE 20 MG ORAL TABLET 1 po bid 2 days, then daily for 2 days PREDNISONE 20 MG ORAL TABLET 056277 PREDNISONE Inactive PREDNISONE 20 MG ORAL TABLET 1 tablet twice daily for 2 days, then 1 tablet once daily for 2 days PREDNISONE 20 MG ORAL TABLET 280755 PREDNISONE Inactive HYDROCODONE-ACETAMINOPHEN 5-325 MG ORAL TABLET 1-2 q 4-6 hrs prn pain 20 tabs HYDROCODONE-ACETAMINOPHEN 5-325 MG ORAL TABLET 799617 HYDROCODONE-ACETAMINOPHEN Inactive MELOXICAM 15 MG ORAL TABLET 1 po q day for pain with food MELOXICAM 15 MG ORAL TABLET 198205 MELOXICAM Inactive FLONASE 50 MCG/ACT NASAL SUSPENSION 1 spray each nostril am and hs FLONASE 50 MCG/ACT NASAL SUSPENSION 0078159 FLUTICASONE PROPIONATE Inactive GUAIFENESIN-CODEINE 100-10 MG/5ML ORAL SYRUP 5ml every 4 to 6 hours as needed for cough GUAIFENESIN-CODEINE 100-10 MG/5ML ORAL SYRUP 844448 GUAIFENESIN-CODEINE Inactive ZITHROMAX Z-MARY 250 MG ORAL TABLET 2 today and then 1 daily for 4 days 03/11 ZITHROMAX Z-MARY 250 MG ORAL TABLET 385923 AZITHROMYCIN Inactive CEFTIN 500 MG ORAL TABLET 1 tablet by mouth twice daily for ten days. CEFTIN 500 MG ORAL TABLET 664199 CEFUROXIME AXETIL Inactive PROAIR HFA 108 (90 [...] CONGESTION TABLET EXTENDED RELEASE 12 HOUR FEXOFENADINE-PSEUDOEPHEDRINE [id number] Inactive PREDNISONE 20 MG ORAL TABLET 1 tablet twice daily for 2 days, then 1 tablet once daily for 2 days PREDNISONE 20 MG ORAL TABLET 840487 PREDNISONE Inactive GUAIFENESIN ER 600 MG ORAL TABLET EXTENDED RELEASE 12 HOUR 1 twice a day as needed for congestion GUAIFENESIN ER 600 MG ORAL TABLET EXTENDED RELEASE 12 HOUR GUAIFENESIN Inactive FLUTICASONE PROPIONATE 50 MCG/ACT NASAL SUSPENSION 1 to 2 sprays each nostril daily FLUTICASONE PROPIONATE 50 MCG/ACT NASAL SUSPENSION 0273940 FLUTICASONE PROPIONATE Inactive MUCINEX D 60-600 MG ORAL TABLET EXTENDED RELEASE 12 HOUR 1 po BID PRN Congestion MUCINEX D 60-600 MG ORAL TABLET EXTENDED RELEASE 12 HOUR PSEUDOEPHEDRINE-GUAIFENESIN Inactive PREDNISONE 20 MG ORAL TABLET two tabs by mouth today, then one tab by mouth days two and three PREDNISONE 20 MG ORAL TABLET 462218 PREDNISONE Inactive AZITHROMYCIN 250 MG ORAL TABLET 2 po qd x 1 day, then 1 po qd x 4 days 11/26 AZITHROMYCIN 250 MG ORAL TABLET 304514 AZITHROMYCIN Inactive AZITHROMYCIN 250 MG ORAL TABLET 2 po qd x 1 day, then 1 po qd x 4 days 08/05 AZITHROMYCIN 250 MG ORAL TABLET 030609 AZITHROMYCIN Inactive MEDROL 4 MG ORAL TABLET THERAPY PACK 6 pills on day 1, 5 pills on day 2, 4 pills on day 3, 4 pills on day 4, 2 pills on day 5, 1 pill on day 6 MEDROL 4 MG ORAL TABLET THERAPY PACK 178663 METHYLPREDNISOLONE Inactive CEPHALEXIN 500 MG ORAL CAPSULE 1 tablet by mouth three times daily for ten days CEPHALEXIN 500 MG ORAL CAPSULE 261723 CEPHALEXIN Inactive PREDNISONE 20 MG ORAL TABLET 2 tabs daily for 3 days, 1 tab daily for 3 days, 1/2 tab daily for 2 days PREDNISONE 20 MG ORAL TABLET 938439 PREDNISONE Inactive CEFDINIR 300 MG ORAL CAPSULE 1 cap by mouth twice a day CEFDINIR 300 MG ORAL CAPSULE 536807 CEFDINIR Inactive PREDNISONE 20 MG ORAL TABLET 2 tabs daily for 3 days, 1 tab daily for 3 days, 1/2 tab daily for 2 days PREDNISONE 20 MG ORAL TABLET 097050 PREDNISONE Inactive PREDNISONE 20 MG ORAL TABLET 2 tabs daily for 3 days, 1 tab daily for 3 days, 1/2 tab daily for 2 days PREDNISONE 20 MG ORAL TABLET 172970 PREDNISONE Inactive CEFDINIR 300 MG ORAL CAPSULE by mouth twice a day CEFDINIR 300 MG ORAL CAPSULE 818108 CEFDINIR Inactive PREDNISONE 20 MG ORAL TABLET 2 tabs daily for 3 days, 1 tab daily for 3 days, 1/2 tab daily for 2 days PREDNISONE 20 MG ORAL TABLET 946158 PREDNISONE Inactive CEFDINIR 300 MG ORAL CAPSULE 1 po BID x 10 days CEFDINIR 300 MG ORAL CAPSULE 986989 CEFDINIR Inactive AZITHROMYCIN 250 MG ORAL TABLET 2 po qd x 1 day, then 1 po qd x 4 days 08/30 AZITHROMYCIN 250 MG ORAL TABLET 205876 AZITHROMYCIN Inactive PREDNISONE 20 MG ORAL TABLET 2 tabs daily for 3 days, 1 tab daily for 3 days, 1/2 tab daily for 2 days start tomorrow 07/31/16 PREDNISONE 20 MG ORAL TABLET 877970 PREDNISONE Inactive Immunizations Vaccine Administration Date Value Standard Description Human Papillomavirus vaccine (Gardasil) #2, (HPV #2) Gardasil [ CVX62] human papilloma virus vaccine, quadrivalent Seasonal influenza vaccine, injectable, containing preservative, for > 3 years old (Afluria, FluLaval, Fluzone, Fluvirin, Fluarix, Agriflu(>=18 yo)) Fluzone (>3 yrs.) [[id number]] Influenza, seasonal, injectable Human Papillomavirus Vaccine (Gardasil) #1 Given (HPV #1) Gardasil [CVX62] human papilloma virus vaccine, quadrivalent hepatitis A immunization #2 Havrix-Pedi hepatitis A vaccine, unspecified formulation Boostrix (Tetanus toxoid, reduced diphtheria toxoid and acellular pertussis vaccine, adsorbed), booster Boostrix [[id number]] tetanus toxoid, reduced diphtheria toxoid, and acellular [...] Measured blood pressure, diastolic 70 mm[Hg] BP herndno blood pressure, systolic 105 mm[Hg] BP sys [...] Negative;Positive Encounters Code Encounter Date Provider Facility CPT-87347 Level 3 Est. Patient 16:03:55 SILK SCREENER Whitley Quiroz [facility]-02377 Level 3 Est. Patient 17:42:49 SILK SCREENER Whitley Quiroz [facility]-03161 Level 3 Est. Patient 10:49:47 SILK SCREENER Griselda Horvath [facility]-06080 Level 3 Est. Patient 08:43:59 SILK SCREENER Jessika Nunes [facility]-52925 Level 3 Est. Patient 09:05:19 SILK SCREENER Griselda Horvath [facility]-03511 Level 3 Est. Patient 15:45:46 CDT Griselda Horvath [facility]-07954 Level 3 Est. Patient 14:15:52 CDT Daniele Mcfadden [facility]-92565 Level 3 Est. Patient 13:57:19 SILK SCREENER Margarito Kelley MD [facility]-50912 Level 3 Est. Patient 09:16:05 SILK SCREENER Margarito Kelley MD [facility]-60515 Level 3 Est. Patient 15:37:06 SILK SCREENER Daniele Mcfadden DO [facility] CPT-39635 Level 3 Est. Patient 11:56:34 SILK SCREENER Renée Adames [facility]-91580 Level 3 Est. Patient 12:19:42 CDT Daniele Mcfadden [facility]-87714 Level 3 Est. Patient 11:08:45 CDT Annita Mejia MD PhD [facility]-47823 Level 3 Est. Patient 12:00:17 CDT Kendell Coronado MD [facility]-51100 Level 3 Est. Patient 12:27:25 CDT Daniele Mcfadden [facility]-19299 Level 3 Est. Patient 18:45:11 SILK SCREENER Daniele Mcfadden [facility] CPT-60961 Level 3 Est. Patient 10:12:24 SILK SCREENER Daniele Mcfadden [facility] CPT-79968 Level 3 Est. Patient 14:35:11 SILK SCREENER Daniele Mcfadden [facility] CPT-61022 Level 3 Est. Patient 14:11:04 CDT Daniele Mcfadden [facility] CPT-62079 Level 3 Est. Patient 10:52:13 CDT Alexander LOPEZ [facility] CPT-23986 Level 3 Est. Patient 11:01:08 SILK SCREENER Daniele Mcfadden [facility] CPT-91483 Level 3 Est. Patient 10:55:35 CDT Daniele Mcfadden [facility] CPT-87747 Level 3 Est. Patient 14:03:08 CDT Daniele Mcfadden [facility] CPT-23508 Level 3 Est. Patient 11:26:19 CDT Margarito Kelley MD [facility] CPT-96437 Level 2 Est. Patient 15:32:04 SILK SCREENER Daniele Mcfadden [facility] CPT-76403 Level 3 Est. Patient 16:01:26 SILK SCREENER Daniele Mcfadden [facility] CPT-23833 Level 3 Est. Patient 06:37:10 SILK SCREENER Daniele Gaetano Bogdan [facility] Procedures Code Procedure Name Date Entry Date Standard Description CPT-34769 Addl Vx - Ix admin via ID IM or jet injects without counseling by physician 14:37:19 CDT CPT-20024 Meningococcal B, recombinant vaccine 14:37:19 CDT 03/05 CPT-19472 First Vx - Ix admin via ID IM or jet injects without counseling by physician 14:37:19 CDT CPT-66062 Menveo Intramuscular Solution Reconstituted 14:37:19 CDT CPT-34022 Meningococcal Conjugate Vacine (Menactra) 11:20:04 CDT CPT-60382 Throat Culture - LAB USE ONLY 12:15:45 SILK SCREENER CPT-44644 Shani Flu A/B - LAB USE ONLY 12:15:45 SILK SCREENER CPT-44877 Rapid Strep (Reflex throat) - LAB USE ONLY 12:15:45 SILK SCREENER CPT-80138 Rapid Strep (Grp A) - LAB USE ONLY 13:06:06 CDT CPT-46028 Abd compl w upright 12:34:39 CDT CPT-72006 Immunization Single Admin 11:38:41 CDT CPT-23693 Fluzone Quadrivalent Intramuscular Suspension 0.5 ML 11: 38:41 CDT CPT-OV Office Visit 14:45:12 SILK SCREENER CPT-34237 [employer] inc all organs plus proximal aorta and distal IVC 2012 12:13:02 SILK SCREENER CPT-88689 Abd compl w upright 15:12:58 SILK SCREENER CPT-74313 Venipuncture Draw Fee 14:38:32 SILK SCREENER CPT-57297 Administration single or combination vaccine inc oral 17 :10:04 CDT CPT-02901 Gardasil 17:10:04 CDT CPT-28291 Venipuncture Draw Fee 16:07:54 SILK SCREENER CPT-14513 Administration 2+ single or combination vaccines inc oral 17:22:02 CDT CPT-39474 Administration single or combination vaccine inc oral 17 :22:02 CDT CPT-26443 Influenza split virus > age 3 17:22:02 CDT CPT-14769 Gardasil 17:22:02 CDT CPT-50969 Administration 2+ single or combination vaccines inc oral 14:38:31 CDT CPT-39083 Administration single or combination vaccine inc oral 14 :38:31 CDT CPT-34750 Meningococcal Conjugate Vacine (Menactra) 14:38:31 CDT CPT-13031 Gardasil 14:38:31 CDT
--- OUTSIDE RECORDS SUMMARY | 2018-02-15 06:50 | XMS REPORT | Clinical Summary ---
Author Author Admin, OLE[facility] Organization [employer] Address Unknown Phone Unavailable Allergies, Adverse Reactions, [...] tube dysfunction, right ICD-381.81 Inactive Katie Gipson INTAKE ASSESSOR Pharyngitis-Acute ICD-462 Inactive Katie Gipson INTAKE ASSESSOR URI ICD-465.9 Inactive Katie Gipson INTAKE ASSESSOR Allergic rhinitis ICD-477.9 Inactive Katie Gipson INTAKE ASSESSOR Acute rhinosinusitis ICD-461.9 Inactive Katie Gipson INTAKE ASSESSOR Fever ICD-780.60 Inactive Katie Gipson INTAKE ASSESSOR Immunization due ICD-V15.83 Inactive Katie Brandan BOWMAN U R I ICD-465.9 Inactive Holly Sharma Medication List Medication Instructions Start Date Stop Date Generic Name NDC Status Provider Patient Instruction FLUTICASONE PROPIONATE 50 MCG/ACT NASAL SUSPENSION 1 spray each nostril twice daily until bottle empty FLUTICASONE PROPIONATE 24249491864 Active Daniele Mcfadden DO Active PREDNISONE 20 MG ORAL TABLET 2 tabs by mouth today, then 1 tab tomorrow 08/30 PREDNISONE 45693454356 Active Daniele Mcfadden DO Active PREDNISONE 10 MG ORAL TABLET 2 TABS BY MOUTH TODAY, THEN 1 TAB BY MOUTH DAYS 2 -5 PREDNISONE 82933277231 No Longer Active Daniele Mcfadden DO Active PREDNISONE 20 MG ORAL TABLET two tabs by mouth today, then one tab by mouth days two and three PREDNISONE 82792345625 No Longer Active Whitley Hernandez Active AZITHROMYCIN 250 MG ORAL TABLET 2 po qd x 1 day, then 1 po qd x 4 days 07/24 AZITHROMYCIN 15294323652 No Longer Active Daniele Mcfadden DO Active IRVING-D ALLERGY & CONGESTION 60-120 MG ORAL TABLET EXTENDED RELEASE 12 HOUR 1 tablet twice daily as needed for congestion/allergies FEXOFENADINE-PSEUDOEPHEDRINE 53927763958 Active Holly Sharma Active PREDNISONE 20 MG ORAL TABLET 2 tabs daily for 3 days, 1 tab daily for 3 days, 1/2 tab daily for 2 days start tomorrow 07/31/16 PREDNISONE 18012202793 No Longer Active Jillsd Borgeszelyue JOHNSON Active AZITHROMYCIN 250 MG ORAL TABLET 2 po qd x 1 day, then 1 po qd x 4 days 08/30 AZITHROMYCIN 74605486637 No Longer Active Jillina Frazell [employer] Active MUCINEX D 60-600 MG ORAL TABLET EXTENDED RELEASE 12 HOUR 1 po BID PRN Congestion PSEUDOEPHEDRINE-GUAIFENESIN 27708209307 No Longer Active Jessika Nunes APRN Active CEFDINIR 300 MG ORAL CAPSULE 1 po BID x 10 days CEFDINIR 21650781068 No Longer Active Griselda Horvath APRN Active PREDNISONE 20 MG ORAL TABLET 2 tabs daily for 3 days, 1 tab daily for 3 days, 1/2 tab daily for 2 days PREDNISONE 53533609436 No Longer Active Ezekielllina Alexandru ONTIVEROSN Active FLUTICASONE PROPIONATE 50 MCG/ACT NASAL SUSPENSION 1 to 2 sprays each nostril daily FLUTICASONE PROPIONATE 61251900036 No Longer Active Griselda Horvath APRN Active GUAIFENESIN ER 600 MG ORAL TABLET EXTENDED RELEASE 12 HOUR 1 twice a day as needed for congestion GUAIFENESIN 92656853435 No Longer Active Griselda Horvath APRN Active CEFDINIR 300 MG ORAL CAPSULE by mouth twice a day CEFDINIR 01990835157 No Longer Active Griselda Horvath APRN Active PREDNISONE 20 MG ORAL TABLET 1 tablet twice daily for 2 days, then 1 tablet once daily for 2 days PREDNISONE 60358074942 No Longer Active Griselda Horvath APRN Active PREDNISONE 20 MG ORAL TABLET 2 tabs daily for 3 days, 1 tab daily for 3 days, 1/2 tab daily for 2 days PREDNISONE 53912642705 No Longer Active Margarito Kelley MD Active IRVING-D ALLERGY & CONGESTION TABLET EXTENDED RELEASE 12 HOUR 1 po bid 05/26 FEXOFENADINE-PSEUDOEPHEDRINE [id number] 16133120888 No Longer Active Margarito Kelley MD Active PREDNISONE 20 MG ORAL TABLET 2 tabs daily for 3 days, 1 tab daily for 3 days, 1/2 tab daily for 2 days PREDNISONE 44538288252 No Longer Active Ezekielllsd Horvath APRN Active CEFDINIR 300 MG ORAL CAPSULE 1 cap by mouth twice a day CEFDINIR 62140798203 No Longer Active Ezekielllsd Horvath APRN Active E-Z SPACER DEVICE use with proair inhalier every 4 times as need. SPACER/AERO-HOLDING CHAMBERS 18846188099 No Longer Active Griselda Horvath APRN Active PROAIR HFA 108 (90 Base) MCG/ACT INHALATION AEROSOL SOLUTION 2 puffs every 4 hours as needed ALBUTEROL SULFATE 00622302925 No Longer Active Griselda Horvath APRN Active CEFTIN 500 MG ORAL TABLET 1 tablet by mouth twice daily for ten days. CEFUROXIME AXETIL 58879898528 No Longer Active Griselda Horvath APRN Active PREDNISONE 20 MG ORAL TABLET 2 tabs daily for 3 days, 1 tab daily for 3 days, 1/2 tab daily for 2 days PREDNISONE 92382080205 No Longer Active Margarito Kelley MD Active CEPHALEXIN 500 MG ORAL CAPSULE 1 tablet by mouth three times daily for ten days CEPHALEXIN 95233072358 No Longer Active Renée Adames APRN Active MEDROL 4 MG ORAL TABLET THERAPY PACK 6 pills on day 1, 5 pills on day 2, 4 pills on day 3, 4 pills on day 4, 2 pills on day 5, 1 pill on day 6 METHYLPREDNISOLONE 89932186255 No Longer Active Annita Mejia MD PhD Active ZITHROMAX Z-MARY 250 MG ORAL TABLET 2 today and then 1 daily for 4 days 03/11 AZITHROMYCIN 72711353340 No Longer Active Annita Mejia MD PhD Active GUAIFENESIN-CODEINE 100-10 MG/5ML ORAL SYRUP 5ml every 4 to 6 hours as needed for cough GUAIFENESIN-CODEINE 73396923600 No Longer Active Annita Mejia MD PhD Active FLONASE 50 MCG/ACT NASAL SUSPENSION 1 spray each nostril am and hs FLUTICASONE PROPIONATE 18446881173 No Longer Active Kendell Coronado MD Active MELOXICAM 15 MG ORAL TABLET 1 po q day for pain with food MELOXICAM 91367416886 No Longer Active Kendell Coronado MD Active HYDROCODONE-ACETAMINOPHEN 5-325 MG ORAL TABLET 1-2 q 4-6 hrs prn pain 20 tabs HYDROCODONE-ACETAMINOPHEN 66546991472 No Longer Active Daniele Mcfadden DO Active PREDNISONE 20 MG ORAL TABLET 1 tablet twice daily for 2 days, then 1 tablet once daily for 2 days PREDNISONE 61465528710 No Longer Active Daniele Mcfadden DO Active PREDNISONE 20 MG ORAL TABLET 1 po bid 2 days, then daily for 2 days PREDNISONE 09359424171 No Longer Active Alexander LOPEZ Active AZITHROMYCIN 250 MG ORAL TABLET 2 po qd x 1 day, then 1 po qd x 4 days 08/05 AZITHROMYCIN 03359805714 No Longer Active Daniele Mcfadden DO Active MUCINEX MAXIMUM STRENGTH TABLET EXTENDED RELEASE 12 HOUR 1 po qd GUAIFENESIN [id number] 31712101884 No Longer Active Daniele Mcfadden DO Active AZITHROMYCIN 250 MG ORAL TABLET 2 po qd x 1 day, then 1 po qd x 4 days 11/26 AZITHROMYCIN 74921379565 No Longer Active Margarito Kleley MD Active MUCINEX MAXIMUM STRENGTH TABLET EXTENDED RELEASE 12 HOUR 1 po qd MUCINEX MAXIMUM STRENGTH TABLET EXTENDED RELEASE 12 HOUR GUAIFENESIN [id number] Inactive PREDNISONE 20 MG ORAL TABLET 1 po bid 2 days, then daily for 2 days PREDNISONE 20 MG ORAL TABLET 148161 PREDNISONE Inactive PREDNISONE 20 MG ORAL TABLET 1 tablet twice daily for 2 days, then 1 tablet once daily for 2 days PREDNISONE 20 MG ORAL TABLET 060500 PREDNISONE Inactive HYDROCODONE-ACETAMINOPHEN 5-325 MG ORAL TABLET 1-2 q 4-6 hrs prn pain 20 tabs HYDROCODONE-ACETAMINOPHEN 5-325 MG ORAL TABLET 539213 HYDROCODONE-ACETAMINOPHEN Inactive MELOXICAM 15 MG ORAL TABLET 1 po q day for pain with food MELOXICAM 15 MG ORAL TABLET 667591 MELOXICAM Inactive FLONASE 50 MCG/ACT NASAL SUSPENSION 1 spray each nostril am and hs FLONASE 50 MCG/ACT NASAL SUSPENSION 6800835 FLUTICASONE PROPIONATE Inactive GUAIFENESIN-CODEINE 100-10 MG/5ML ORAL SYRUP 5ml every 4 to 6 hours as needed for cough GUAIFENESIN-CODEINE 100-10 MG/5ML ORAL SYRUP 141591 GUAIFENESIN-CODEINE Inactive ZITHROMAX Z-MARY 250 MG ORAL TABLET 2 today and then 1 daily for 4 days 03/11 ZITHROMAX Z-MARY 250 MG ORAL TABLET 173544 AZITHROMYCIN Inactive CEFTIN 500 MG ORAL TABLET 1 tablet by mouth twice daily for ten days. CEFTIN 500 MG ORAL TABLET 530113 CEFUROXIME AXETIL Inactive PROAIR HFA 108 (90 [...] CONGESTION TABLET EXTENDED RELEASE 12 HOUR FEXOFENADINE-PSEUDOEPHEDRINE [id number] Inactive PREDNISONE 20 MG ORAL TABLET 1 tablet twice daily for 2 days, then 1 tablet once daily for 2 days PREDNISONE 20 MG ORAL TABLET 704921 PREDNISONE Inactive GUAIFENESIN ER 600 MG ORAL TABLET EXTENDED RELEASE 12 HOUR 1 twice a day as needed for congestion GUAIFENESIN ER 600 MG ORAL TABLET EXTENDED RELEASE 12 HOUR GUAIFENESIN Inactive FLUTICASONE PROPIONATE 50 MCG/ACT NASAL SUSPENSION 1 to 2 sprays each nostril daily FLUTICASONE PROPIONATE 50 MCG/ACT NASAL SUSPENSION 0134254 FLUTICASONE PROPIONATE Inactive MUCINEX D 60-600 MG ORAL TABLET EXTENDED RELEASE 12 HOUR 1 po BID PRN Congestion MUCINEX D 60-600 MG ORAL TABLET EXTENDED RELEASE 12 HOUR PSEUDOEPHEDRINE-GUAIFENESIN Inactive PREDNISONE 20 MG ORAL TABLET two tabs by mouth today, then one tab by mouth days two and three PREDNISONE 20 MG ORAL TABLET 334706 PREDNISONE Inactive PREDNISONE 10 MG ORAL TABLET 2 TABS BY MOUTH TODAY, THEN 1 TAB BY MOUTH DAYS 2 -5 PREDNISONE 10 MG ORAL TABLET 584947 PREDNISONE Inactive AZITHROMYCIN 250 MG ORAL TABLET 2 po qd x 1 day, then 1 po qd x 4 days 11/26 AZITHROMYCIN 250 MG ORAL TABLET 810075 AZITHROMYCIN Inactive AZITHROMYCIN 250 MG ORAL TABLET 2 po qd x 1 day, then 1 po qd x 4 days 08/05 AZITHROMYCIN 250 MG ORAL TABLET 208744 AZITHROMYCIN Inactive MEDROL 4 MG ORAL TABLET THERAPY PACK 6 pills on day 1, 5 pills on day 2, 4 pills on day 3, 4 pills on day 4, 2 pills on day 5, 1 pill on day 6 MEDROL 4 MG ORAL TABLET THERAPY PACK 632598 METHYLPREDNISOLONE Inactive CEPHALEXIN 500 MG ORAL CAPSULE 1 tablet by mouth three times daily for ten days CEPHALEXIN 500 MG ORAL CAPSULE 019213 CEPHALEXIN Inactive PREDNISONE 20 MG ORAL TABLET 2 tabs daily for 3 days, 1 tab daily for 3 days, 1/2 tab daily for 2 days PREDNISONE 20 MG ORAL TABLET 855589 PREDNISONE Inactive CEFDINIR 300 MG ORAL CAPSULE 1 cap by mouth twice a day CEFDINIR 300 MG ORAL CAPSULE 267116 CEFDINIR Inactive PREDNISONE 20 MG ORAL TABLET 2 tabs daily for 3 days, 1 tab daily for 3 days, 1/2 tab daily for 2 days PREDNISONE 20 MG ORAL TABLET 894010 PREDNISONE Inactive PREDNISONE 20 MG ORAL TABLET 2 tabs daily for 3 days, 1 tab daily for 3 days, 1/2 tab daily for 2 days PREDNISONE 20 MG ORAL TABLET 127757 PREDNISONE Inactive CEFDINIR 300 MG ORAL CAPSULE by mouth twice a day CEFDINIR 300 MG ORAL CAPSULE 428859 CEFDINIR Inactive PREDNISONE 20 MG ORAL TABLET 2 tabs daily for 3 days, 1 tab daily for 3 days, 1/2 tab daily for 2 days PREDNISONE 20 MG ORAL TABLET 529095 PREDNISONE Inactive CEFDINIR 300 MG ORAL CAPSULE 1 po BID x 10 days CEFDINIR 300 MG ORAL CAPSULE 034597 CEFDINIR Inactive AZITHROMYCIN 250 MG ORAL TABLET 2 po qd x 1 day, then 1 po qd x 4 days 08/30 AZITHROMYCIN 250 MG ORAL TABLET 182943 AZITHROMYCIN Inactive PREDNISONE 20 MG ORAL TABLET 2 tabs daily for 3 days, 1 tab daily for 3 days, 1/2 tab daily for 2 days start tomorrow 07/31/16 PREDNISONE 20 MG ORAL TABLET 822208 PREDNISONE Inactive AZITHROMYCIN 250 MG ORAL TABLET 2 po qd x 1 day, then 1 po qd x 4 days 07/24 AZITHROMYCIN 250 MG ORAL TABLET 113360 AZITHROMYCIN Inactive Immunizations Vaccine Administration Date Value Standard Description Human Papillomavirus vaccine (Gardasil) #2, (HPV #2) Gardasil [ CVX62] human papilloma virus vaccine, quadrivalent Seasonal influenza vaccine, injectable, containing preservative, for > 3 years old (Afluria, FluLaval, Fluzone, Fluvirin, Fluarix, Agriflu(>=18 yo)) Fluzone (>3 yrs.) [OIF097] Influenza, seasonal, injectable Human Papillomavirus Vaccine (Gardasil) #1 Given (HPV #1) Gardasil [CVX62] human papilloma virus vaccine, quadrivalent hepatitis A immunization #2 Havrix-Pedi hepatitis A vaccine, unspecified formulation Boostrix (Tetanus toxoid, reduced diphtheria toxoid and acellular pertussis vaccine, adsorbed), booster Boostrix [[id number]] tetanus toxoid, reduced diphtheria toxoid, and acellular [...] Negative;Positive Encounters Code Encounter Date Provider Facility CPT-30950 Level 3 Est. Patient 09:35:49 RETAIL CUSTODIAL ASSOCIATE Daniele Mcfadden [facility] CPT-58259 Level 3 Est. Patient 09:35:25 RETAIL CUSTODIAL ASSOCIATE Daniele Mcfadden [facility] CPT-72518 Level 3 Est. Patient 16:03:55 RETAIL CUSTODIAL ASSOCIATE Whitley Quiroz [facility]3] CPT-43094 Level 3 Est. Patient 17:42:49 RETAIL CUSTODIAL ASSOCIATE Whitley Quiroz [facility]3] CPT-73037 Level 3 Est. Patient 10:49:47 RETAIL CUSTODIAL ASSOCIATE Griselda Horvath [facility]-44602 Level 3 Est. Patient 08:43:59 RETAIL CUSTODIAL ASSOCIATE Jessika Nunes [facility] CPT-32315 Level 3 Est. Patient 09:05:19 RETAIL CUSTODIAL ASSOCIATE Griselda Horvath [facility] CPT-05701 Level 3 Est. Patient 15:45:46 CDT Griselda Horvath [facility] CPT-62581 Level 3 Est. Patient 14:15:52 CDT Daniele Mcfadden [facility] CPT-49691 Level 3 Est. Patient 13:57:19 RETAIL CUSTODIAL ASSOCIATE Margarito Kelley MD [facility] CPT-63485 Level 3 Est. Patient 09:16:05 RETAIL CUSTODIAL ASSOCIATE Margarito Kelley MD [facility] CPT-05003 Level 3 Est. Patient 15:37:06 RETAIL CUSTODIAL ASSOCIATE Daniele Mcfadden [facility] CPT-31732 Level 3 Est. Patient 11:56:34 RETAIL CUSTODIAL ASSOCIATE Renée Adames [facility] CPT-66603 Level 3 Est. Patient 12:19:42 CDT Daniele Mcfadden [facility] CPT-64318 Level 3 Est. Patient 11:08:45 CDT Annita Mejia MD PhD [facility] CPT-82777 Level 3 Est. Patient 12:00:17 CDT Kendell Coronado MD [facility]-36177 Level 3 Est. Patient 12:27:25 CDT Daniele Mcfadden [facility] CPT-63643 Level 3 Est. Patient 18:45:11 RETAIL CUSTODIAL ASSOCIATE Daniele Mcfadden [facility] CPT-90007 Level 3 Est. Patient 10:12:24 RETAIL CUSTODIAL ASSOCIATE Daniele Mcfadden [facility] CPT-03373 Level 3 Est. Patient 14:35:11 RETAIL CUSTODIAL ASSOCIATE Daniele Mcfadden [facility] CPT-75742 Level 3 Est. Patient 14:11:04 CDT Daniele Mcfadden [facility] CPT-05513 Level 3 Est. Patient 10:52:13 CDT Alexander LOPEZ [facility] CPT-00109 Level 3 Est. Patient 11:01:08 RETAIL CUSTODIAL ASSOCIATE Daniele Mcfadden [facility] CPT-24136 Level 3 Est. Patient 10:55:35 CDT Daniele Mcfadden [facility] CPT-80675 Level 3 Est. Patient 14:03:08 CDT Daniele Salter Bogdan [facility] CPT-54422 Level 3 Est. Patient 11:26:19 CDT Margarito Kelley MD [facility] CPT-06539 Level 2 Est. Patient 15:32:04 RETAIL CUSTODIAL ASSOCIATE Daniele Mcfadden [facility] CPT-19385 Level 3 Est. Patient 16:01:26 RETAIL CUSTODIAL ASSOCIATE Daniele Mcfadden [facility] CPT-53581 Level 3 Est. Patient 06:37:10 RETAIL CUSTODIAL ASSOCIATE Daniele Gaetano [facility] Procedures Code Procedure Name Date Entry Date Standard Description CPT-37822 Addl Vx - Ix admin via ID IM or jet injects without counseling by physician 14:37:19 CDT CPT-03204 Meningococcal B, recombinant vaccine 14:37:19 CDT 03/05 CPT-44923 First Vx - Ix admin via ID IM or jet injects without counseling by physician 14:37:19 CDT CPT-38949 Menveo Intramuscular Solution Reconstituted 14:37:19 CDT CPT-00899 Meningococcal Conjugate Vacine (Menactra) 11:20:04 CDT CPT-99657 Throat Culture - LAB USE ONLY 12:15:45 RETAIL CUSTODIAL ASSOCIATE CPT-83672 Shani Flu A/B - LAB USE ONLY 12:15:45 RETAIL CUSTODIAL ASSOCIATE CPT-37292 Rapid Strep (Reflex throat) - LAB USE ONLY 12:15:45 RETAIL CUSTODIAL ASSOCIATE CPT-39942 Rapid Strep (Grp A) - LAB USE ONLY 13:06:06 CDT CPT-40129 Abd compl w upright 12:34:39 CDT CPT-76441 Immunization Single Admin 11:38:41 CDT CPT-09073 Fluzone Quadrivalent Intramuscular Suspension 0.5 ML 11: 38:41 CDT CPT-OV Office Visit 14:45:12 RETAIL CUSTODIAL ASSOCIATE CPT-40545 [employer] abd [employer] inc all organs plus proximal aorta and distal IVC 2012 12:13:02 RETAIL CUSTODIAL ASSOCIATE CPT-70675 Abd compl w upright 15:12:58 RETAIL CUSTODIAL ASSOCIATE CPT-01163 Venipuncture Draw Fee 14:38:32 RETAIL CUSTODIAL ASSOCIATE CPT-96784 Administration single or combination vaccine inc oral 17 :10:04 CDT CPT-57243 Gardasil 17:10:04 CDT CPT-12846 Venipuncture Draw Fee 16:07:54 RETAIL CUSTODIAL ASSOCIATE CPT-00937 Administration 2+ single or combination vaccines inc oral 17:22:02 CDT CPT-77489 Administration single or combination vaccine inc oral 17 :22:02 CDT CPT-82391 Influenza split virus > age 3 17:22:02 CDT CPT-37977 Gardasil 17:22:02 CDT CPT-26376 Administration 2+ single or combination vaccines inc oral 14:38:31 CDT CPT-49815 Administration single or combination vaccine inc oral 14 :38:31 CDT CPT-81260 Meningococcal Conjugate Vacine (Menactra) 14:38:31 CDT CPT-32991 Gardasil 14:38:31 CDT
--- OUTSIDE RECORDS SUMMARY | 2018-02-15 06:51 | XMS REPORT | Clinical Summary ---
Author Author Admin, OLEG Organization [employer] Address Unknown Phone Unavailable Allergies, Adverse Reactions, [...] tube dysfunction, right ICD-381.81 Inactive Katie Gipson [employer] Pharyngitis-Acute ICD-462 Inactive Katie Gipson [employer] URI ICD-465.9 Inactive Katie Gipson [employer] Allergic rhinitis ICD-477.9 Inactive Katie Gipson [employer] Acute rhinosinusitis ICD-461.9 Inactive Katie Gipson [employer] Fever ICD-780.60 Inactive Katie Gipson [employer] Immunization due ICD-V15.83 Inactive Katie Brandan BOWMAN U R I ICD-465.9 Inactive Holly Sharma Medication List Medication Instructions Start Date Stop Date Generic Name NDC Status Provider Patient Instruction FLUTICASONE PROPIONATE 50 MCG/ACT NASAL SUSPENSION 1 spray each nostril twice daily until bottle empty FLUTICASONE PROPIONATE 80055978684 Active Daniele Mcfadden DO Active PREDNISONE 20 MG ORAL TABLET 2 tabs by mouth today, then 1 tab tomorrow 08/30 PREDNISONE 55734928780 Active Daniele Mcfadden DO Active PREDNISONE 10 MG ORAL TABLET 2 TABS BY MOUTH TODAY, THEN 1 TAB BY MOUTH DAYS 2 -5 PREDNISONE 57777372663 No Longer Active Daniele Mcfadden DO Active PREDNISONE 20 MG ORAL TABLET two tabs by mouth today, then one tab by mouth days two and three PREDNISONE 38911000247 No Longer Active Whitley Hernandez Active AZITHROMYCIN 250 MG ORAL TABLET 2 po qd x 1 day, then 1 po qd x 4 days 07/24 AZITHROMYCIN 47860317063 No Longer Active Daniele Mcfadden DO Active IRVING-D ALLERGY & CONGESTION 60-120 MG ORAL TABLET EXTENDED RELEASE 12 HOUR 1 tablet twice daily as needed for congestion/allergies FEXOFENADINE-PSEUDOEPHEDRINE 52978660887 Active Holly Sharma Active PREDNISONE 20 MG ORAL TABLET 2 tabs daily for 3 days, 1 tab daily for 3 days, 1/2 tab daily for 2 days start tomorrow 07/31/16 PREDNISONE 77410303821 No Longer Active Jillsd Borgeszelyue JOHNSON Active AZITHROMYCIN 250 MG ORAL TABLET 2 po qd x 1 day, then 1 po qd x 4 days 08/30 AZITHROMYCIN 83984368353 No Longer Active Jillina Frazell UNLOADER Active MUCINEX D 60-600 MG ORAL TABLET EXTENDED RELEASE 12 HOUR 1 po BID PRN Congestion PSEUDOEPHEDRINE-GUAIFENESIN 94089052805 No Longer Active Jessika Nunes APRN Active CEFDINIR 300 MG ORAL CAPSULE 1 po BID x 10 days CEFDINIR 18455865455 No Longer Active Griselda Horvath APRN Active PREDNISONE 20 MG ORAL TABLET 2 tabs daily for 3 days, 1 tab daily for 3 days, 1/2 tab daily for 2 days PREDNISONE 84667385206 No Longer Active Ezekielllina Alexandru ONTIVEROSN Active FLUTICASONE PROPIONATE 50 MCG/ACT NASAL SUSPENSION 1 to 2 sprays each nostril daily FLUTICASONE PROPIONATE 77235672469 No Longer Active Griselda Horvath APRN Active GUAIFENESIN ER 600 MG ORAL TABLET EXTENDED RELEASE 12 HOUR 1 twice a day as needed for congestion GUAIFENESIN 61194303671 No Longer Active Griselda Horvath APRN Active CEFDINIR 300 MG ORAL CAPSULE by mouth twice a day CEFDINIR 61348890714 No Longer Active Griselda Horvath APRN Active PREDNISONE 20 MG ORAL TABLET 1 tablet twice daily for 2 days, then 1 tablet once daily for 2 days PREDNISONE 70174616794 No Longer Active Griselda Horvath APRN Active PREDNISONE 20 MG ORAL TABLET 2 tabs daily for 3 days, 1 tab daily for 3 days, 1/2 tab daily for 2 days PREDNISONE 02941356851 No Longer Active Margarito Kelley MD Active IRVING-D ALLERGY & CONGESTION TABLET EXTENDED RELEASE 12 HOUR 1 po bid 05/26 FEXOFENADINE-PSEUDOEPHEDRINE [id number] 13482534322 No Longer Active Margarito Kelley MD Active PREDNISONE 20 MG ORAL TABLET 2 tabs daily for 3 days, 1 tab daily for 3 days, 1/2 tab daily for 2 days PREDNISONE 20136982528 No Longer Active Ezekielllsd Horvath APRN Active CEFDINIR 300 MG ORAL CAPSULE 1 cap by mouth twice a day CEFDINIR 66269593586 No Longer Active Ezekielllsd Horvath APRN Active E-Z SPACER DEVICE use with proair inhalier every 4 times as need. SPACER/AERO-HOLDING CHAMBERS 03140769332 No Longer Active Griselda Horvath APRN Active PROAIR HFA 108 (90 Base) MCG/ACT INHALATION AEROSOL SOLUTION 2 puffs every 4 hours as needed ALBUTEROL SULFATE 72846000581 No Longer Active Griselda Horvath APRN Active CEFTIN 500 MG ORAL TABLET 1 tablet by mouth twice daily for ten days. CEFUROXIME AXETIL 31451015314 No Longer Active Griselda Horvath APRN Active PREDNISONE 20 MG ORAL TABLET 2 tabs daily for 3 days, 1 tab daily for 3 days, 1/2 tab daily for 2 days PREDNISONE 16403736557 No Longer Active Margarito Kelley MD Active CEPHALEXIN 500 MG ORAL CAPSULE 1 tablet by mouth three times daily for ten days CEPHALEXIN 61644950938 No Longer Active Renée Adames APRN Active MEDROL 4 MG ORAL TABLET THERAPY PACK 6 pills on day 1, 5 pills on day 2, 4 pills on day 3, 4 pills on day 4, 2 pills on day 5, 1 pill on day 6 METHYLPREDNISOLONE 62324935127 No Longer Active Annita Mejia MD PhD Active ZITHROMAX Z-MARY 250 MG ORAL TABLET 2 today and then 1 daily for 4 days 03/11 AZITHROMYCIN 80913884411 No Longer Active Annita Mejia MD PhD Active GUAIFENESIN-CODEINE 100-10 MG/5ML ORAL SYRUP 5ml every 4 to 6 hours as needed for cough GUAIFENESIN-CODEINE 92460308902 No Longer Active Annita Mejia MD PhD Active FLONASE 50 MCG/ACT NASAL SUSPENSION 1 spray each nostril am and hs FLUTICASONE PROPIONATE 68619549372 No Longer Active Kendell Coronado MD Active MELOXICAM 15 MG ORAL TABLET 1 po q day for pain with food MELOXICAM 12197390178 No Longer Active Kendell Coronado MD Active HYDROCODONE-ACETAMINOPHEN 5-325 MG ORAL TABLET 1-2 q 4-6 hrs prn pain 20 tabs HYDROCODONE-ACETAMINOPHEN 02416327150 No Longer Active Daniele Mcfadden DO Active PREDNISONE 20 MG ORAL TABLET 1 tablet twice daily for 2 days, then 1 tablet once daily for 2 days PREDNISONE 45062443216 No Longer Active Daniele Mcfadden DO Active PREDNISONE 20 MG ORAL TABLET 1 po bid 2 days, then daily for 2 days PREDNISONE 16767924428 No Longer Active Alexander LOPEZ Active AZITHROMYCIN 250 MG ORAL TABLET 2 po qd x 1 day, then 1 po qd x 4 days 08/05 AZITHROMYCIN 02506119938 No Longer Active Daniele Mcfadden DO Active MUCINEX MAXIMUM STRENGTH TABLET EXTENDED RELEASE 12 HOUR 1 po qd GUAIFENESIN [id number] 86072306325 No Longer Active Daniele Mcfadden DO Active AZITHROMYCIN 250 MG ORAL TABLET 2 po qd x 1 day, then 1 po qd x 4 days 11/26 AZITHROMYCIN 25243520470 No Longer Active Margarito Kelley MD Active MUCINEX MAXIMUM STRENGTH TABLET EXTENDED RELEASE 12 HOUR 1 po qd MUCINEX MAXIMUM STRENGTH TABLET EXTENDED RELEASE 12 HOUR GUAIFENESIN [id number] Inactive PREDNISONE 20 MG ORAL TABLET 1 po bid 2 days, then daily for 2 days PREDNISONE 20 MG ORAL TABLET 369537 PREDNISONE Inactive PREDNISONE 20 MG ORAL TABLET 1 tablet twice daily for 2 days, then 1 tablet once daily for 2 days PREDNISONE 20 MG ORAL TABLET 654019 PREDNISONE Inactive HYDROCODONE-ACETAMINOPHEN 5-325 MG ORAL TABLET 1-2 q 4-6 hrs prn pain 20 tabs HYDROCODONE-ACETAMINOPHEN 5-325 MG ORAL TABLET 457883 HYDROCODONE-ACETAMINOPHEN Inactive MELOXICAM 15 MG ORAL TABLET 1 po q day for pain with food MELOXICAM 15 MG ORAL TABLET 094653 MELOXICAM Inactive FLONASE 50 MCG/ACT NASAL SUSPENSION 1 spray each nostril am and hs FLONASE 50 MCG/ACT NASAL SUSPENSION 8423240 FLUTICASONE PROPIONATE Inactive GUAIFENESIN-CODEINE 100-10 MG/5ML ORAL SYRUP 5ml every 4 to 6 hours as needed for cough GUAIFENESIN-CODEINE 100-10 MG/5ML ORAL SYRUP 080083 GUAIFENESIN-CODEINE Inactive ZITHROMAX Z-MARY 250 MG ORAL TABLET 2 today and then 1 daily for 4 days 03/11 ZITHROMAX Z-MARY 250 MG ORAL TABLET 817950 AZITHROMYCIN Inactive CEFTIN 500 MG ORAL TABLET 1 tablet by mouth twice daily for ten days. CEFTIN 500 MG ORAL TABLET 786499 CEFUROXIME AXETIL Inactive PROAIR HFA 108 (90 [...] CONGESTION TABLET EXTENDED RELEASE 12 HOUR FEXOFENADINE-PSEUDOEPHEDRINE [id number] Inactive PREDNISONE 20 MG ORAL TABLET 1 tablet twice daily for 2 days, then 1 tablet once daily for 2 days PREDNISONE 20 MG ORAL TABLET 331333 PREDNISONE Inactive GUAIFENESIN ER 600 MG ORAL TABLET EXTENDED RELEASE 12 HOUR 1 twice a day as needed for congestion GUAIFENESIN ER 600 MG ORAL TABLET EXTENDED RELEASE 12 HOUR GUAIFENESIN Inactive FLUTICASONE PROPIONATE 50 MCG/ACT NASAL SUSPENSION 1 to 2 sprays each nostril daily FLUTICASONE PROPIONATE 50 MCG/ACT NASAL SUSPENSION 6227562 FLUTICASONE PROPIONATE Inactive MUCINEX D 60-600 MG ORAL TABLET EXTENDED RELEASE 12 HOUR 1 po BID PRN Congestion MUCINEX D 60-600 MG ORAL TABLET EXTENDED RELEASE 12 HOUR PSEUDOEPHEDRINE-GUAIFENESIN Inactive PREDNISONE 20 MG ORAL TABLET two tabs by mouth today, then one tab by mouth days two and three PREDNISONE 20 MG ORAL TABLET 864132 PREDNISONE Inactive PREDNISONE 10 MG ORAL TABLET 2 TABS BY MOUTH TODAY, THEN 1 TAB BY MOUTH DAYS 2 -5 PREDNISONE 10 MG ORAL TABLET 674053 PREDNISONE Inactive AZITHROMYCIN 250 MG ORAL TABLET 2 po qd x 1 day, then 1 po qd x 4 days 11/26 AZITHROMYCIN 250 MG ORAL TABLET 224321 AZITHROMYCIN Inactive AZITHROMYCIN 250 MG ORAL TABLET 2 po qd x 1 day, then 1 po qd x 4 days 08/05 AZITHROMYCIN 250 MG ORAL TABLET 165475 AZITHROMYCIN Inactive MEDROL 4 MG ORAL TABLET THERAPY PACK 6 pills on day 1, 5 pills on day 2, 4 pills on day 3, 4 pills on day 4, 2 pills on day 5, 1 pill on day 6 MEDROL 4 MG ORAL TABLET THERAPY PACK 116475 METHYLPREDNISOLONE Inactive CEPHALEXIN 500 MG ORAL CAPSULE 1 tablet by mouth three times daily for ten days CEPHALEXIN 500 MG ORAL CAPSULE 889232 CEPHALEXIN Inactive PREDNISONE 20 MG ORAL TABLET 2 tabs daily for 3 days, 1 tab daily for 3 days, 1/2 tab daily for 2 days PREDNISONE 20 MG ORAL TABLET 182694 PREDNISONE Inactive CEFDINIR 300 MG ORAL CAPSULE 1 cap by mouth twice a day CEFDINIR 300 MG ORAL CAPSULE 609707 CEFDINIR Inactive PREDNISONE 20 MG ORAL TABLET 2 tabs daily for 3 days, 1 tab daily for 3 days, 1/2 tab daily for 2 days PREDNISONE 20 MG ORAL TABLET 125004 PREDNISONE Inactive PREDNISONE 20 MG ORAL TABLET 2 tabs daily for 3 days, 1 tab daily for 3 days, 1/2 tab daily for 2 days PREDNISONE 20 MG ORAL TABLET 576713 PREDNISONE Inactive CEFDINIR 300 MG ORAL CAPSULE by mouth twice a day CEFDINIR 300 MG ORAL CAPSULE 376800 CEFDINIR Inactive PREDNISONE 20 MG ORAL TABLET 2 tabs daily for 3 days, 1 tab daily for 3 days, 1/2 tab daily for 2 days PREDNISONE 20 MG ORAL TABLET 554699 PREDNISONE Inactive CEFDINIR 300 MG ORAL CAPSULE 1 po BID x 10 days CEFDINIR 300 MG ORAL CAPSULE 768412 CEFDINIR Inactive AZITHROMYCIN 250 MG ORAL TABLET 2 po qd x 1 day, then 1 po qd x 4 days 08/30 AZITHROMYCIN 250 MG ORAL TABLET 660214 AZITHROMYCIN Inactive PREDNISONE 20 MG ORAL TABLET 2 tabs daily for 3 days, 1 tab daily for 3 days, 1/2 tab daily for 2 days start tomorrow 07/31/16 PREDNISONE 20 MG ORAL TABLET 284219 PREDNISONE Inactive AZITHROMYCIN 250 MG ORAL TABLET 2 po qd x 1 day, then 1 po qd x 4 days 07/24 AZITHROMYCIN 250 MG ORAL TABLET 215397 AZITHROMYCIN Inactive Immunizations Vaccine Administration Date Value Standard Description Human Papillomavirus vaccine (Gardasil) #2, (HPV #2) Gardasil [ CVX62] human papilloma virus vaccine, quadrivalent Seasonal influenza vaccine, injectable, containing preservative, for > 3 years old (Afluria, FluLaval, Fluzone, Fluvirin, Fluarix, Agriflu(>=18 yo)) Fluzone (>3 yrs.) [[id number]] Influenza, seasonal, injectable Human Papillomavirus Vaccine (Gardasil) #1 Given (HPV #1) Gardasil [CVX62] human papilloma virus vaccine, quadrivalent hepatitis A immunization #2 Havrix-Pedi hepatitis A vaccine, unspecified formulation Boostrix (Tetanus toxoid, reduced diphtheria toxoid and acellular pertussis vaccine, adsorbed), booster Boostrix [[id number]] tetanus toxoid, reduced diphtheria toxoid, and acellular [...] Negative;Positive Encounters Code Encounter Date Provider Facility CPT-36906 Level 3 Est. Patient 09:35:49 PUMPER HELPER Daniele Mcfadden [facility] CPT-87064 Level 3 Est. Patient 09:35:25 PUMPER HELPER Daniele Mcfadden [facility] CPT-23149 Level 3 Est. Patient 16:03:55 PUMPER HELPER Whitley Quiroz [facility] CPT-83422 Level 3 Est. Patient 17:42:49 PUMPER HELPER Whitley Quiroz [facility] CPT-68730 Level 3 Est. Patient 10:49:47 PUMPER HELPER Griselda Horvath [facility]-30615 Level 3 Est. Patient 08:43:59 PUMPER HELPER Jessika Nunes [facility] [facility] [place] CPT-47942 Level 3 Est. Patient 09:05:19 PUMPER HELPER Griselda Horvath [facility] [place] [facility] [place] CPT-51610 Level 3 Est. Patient 15:45:46 CDT Griselda Horvath [facility] [place] [facility] [place] CPT-37570 Level 3 Est. Patient 14:15:52 CDT Daniele Mcfadden [facility] CPT-16733 Level 3 Est. Patient 13:57:19 PUMPER HELPER Margarito Kelley MD [facility] CPT-28269 Level 3 Est. Patient 09:16:05 PUMPER HELPER Margarito Kelley MD [facility] CPT-27179 Level 3 Est. Patient 15:37:06 PUMPER HELPER Daniele Mcfadden [facility] CPT-28516 Level 3 Est. Patient 11:56:34 PUMPER HELPER Renée Adames [facility] CPT-37079 Level 3 Est. Patient 12:19:42 CDT Daniele Mcfadden [facility] CPT-38802 Level 3 Est. Patient 11:08:45 CDT Annita Mejia MD PhD [facility] CPT-04350 Level 3 Est. Patient 12:00:17 CDT Kendell Coronado MD [facility]-23398 Level 3 Est. Patient 12:27:25 CDT Daniele Mcfadden [facility] CPT-72136 Level 3 Est. Patient 18:45:11 PUMPER HELPER Daniele Mcfadden [facility] CPT-75268 Level 3 Est. Patient 10:12:24 PUMPER HELPER Daniele Mcfadden [facility] CPT-56769 Level 3 Est. Patient 14:35:11 PUMPER HELPER Daniele Mcfadden [facility] CPT-51713 Level 3 Est. Patient 14:11:04 CDT Daniele Mcfadden [facility] CPT-52454 Level 3 Est. Patient 10:52:13 CDT Alexander LOPEZ [facility] CPT-01982 Level 3 Est. Patient 11:01:08 PUMPER HELPER Daniele Mcfadden [facility] CPT-92735 Level 3 Est. Patient 10:55:35 CDT Daniele Mcfadden [facility] CPT-86433 Level 3 Est. Patient 14:03:08 CDT Daniele Salter Bogdan [facility] CPT-01532 Level 3 Est. Patient 11:26:19 CDT Margarito Kelley MD [facility] CPT-59298 Level 2 Est. Patient 15:32:04 PUMPER HELPER Daniele Mcfadden [facility] CPT-22308 Level 3 Est. Patient 16:01:26 PUMPER HELPER Daniele Mcfadden [facility] CPT-96280 Level 3 Est. Patient 06:37:10 PUMPER HELPER Daniele Gaetano [facility] Procedures Code Procedure Name Date Entry Date Standard Description CPT-97721 Addl Vx - Ix admin via ID IM or jet injects without counseling by physician 14:37:19 CDT CPT-43348 Meningococcal B, recombinant vaccine 14:37:19 CDT 03/05 CPT-93002 First Vx - Ix admin via ID IM or jet injects without counseling by physician 14:37:19 CDT CPT-99921 Menveo Intramuscular Solution Reconstituted 14:37:19 CDT CPT-14074 Meningococcal Conjugate Vacine (Menactra) 11:20:04 CDT CPT-06838 Throat Culture - LAB USE ONLY 12:15:45 PUMPER HELPER CPT-80226 Shani Flu A/B - LAB USE ONLY 12:15:45 PUMPER HELPER CPT-76098 Rapid Strep (Reflex throat) - LAB USE ONLY 12:15:45 PUMPER HELPER CPT-48253 Rapid Strep (Grp A) - LAB USE ONLY 13:06:06 CDT CPT-32060 Abd compl w upright 12:34:39 CDT CPT-38818 Immunization Single Admin 11:38:41 CDT CPT-21587 Fluzone Quadrivalent Intramuscular Suspension 0.5 ML 11: 38:41 CDT CPT-OV Office Visit 14:45:12 PUMPER HELPER CPT-13428 Sono abd com inc all organs plus proximal aorta and distal IVC 2012 12:13:02 PUMPER HELPER CPT-98264 Abd compl w upright 15:12:58 PUMPER HELPER CPT-74265 Venipuncture Draw Fee 14:38:32 PUMPER HELPER CPT-54005 Administration single or combination vaccine inc oral 17 :10:04 CDT CPT-33539 Gardasil 17:10:04 CDT CPT-17504 Venipuncture Draw Fee 16:07:54 PUMPER HELPER CPT-14073 Administration 2+ single or combination vaccines inc oral 17:22:02 CDT CPT-64926 Administration single or combination vaccine inc oral 17 :22:02 CDT CPT-08142 Influenza split virus > age 3 17:22:02 CDT CPT-03484 Gardasil 17:22:02 CDT CPT-78128 Administration 2+ single or combination vaccines inc oral 14:38:31 CDT CPT-20525 Administration single or combination vaccine inc oral 14 :38:31 CDT CPT-74848 Meningococcal Conjugate Vacine (Menactra) 14:38:31 CDT CPT-37881 Gardasil 14:38:31 CDT
--- OUTSIDE RECORDS SUMMARY | 2018-02-15 06:52 | XMS REPORT | Clinical Summary ---
Author Author Admin, [employer] Address Unknown Phone Unavailable Allergies, Adverse Reactions, [...] unspecified site Sinusitis 473.9 Active Griselda Horvath [facility] [employer] Unspecified sinusitis (chronic) Eustachian tube dysfunction, right 381.81 Active Margarito Kelley MD Dysfunction of Eustachian tube Pharyngitis-Acute 462 Active Daniele Mcfadden DO Acute pharyngitis URI 465.9 Active Griselda Horvath [facility] [employer] Acute upper respiratory infections of unspecified site Allergic rhinitis 477.9 Active Jessika Nunes [facility] [employer] Allergic rhinitis, cause unspecified Acute rhinosinusitis 461.9 Active Jessika Nunes [facility] [employer] Acute sinusitis, unspecified Fever 780.60 Active Griselda [...] for 2 days start tomorrow 07/31/16 PREDNISONE [id number] No Longer Active Jillina Frazell [facility] [employer] Active AZITHROMYCIN 250 MG TABS 2 po qd x 1 day, then 1 po qd x 4 days AZITHROMYCIN 33369267331 No Longer Active Jillina Frazell [facility] [employer] Active MUCINEX D 60-600 MG [id number]-HMI 1 po BID PRN Congestion PSEUDOEPHEDRINE-GUAIFENESIN 07766432287 No Longer Active Jessika Martin [facility] [employer] Active CEFDINIR 300 MG CAPS 1 po BID x 10 days CEFDINIR 46265546535 No Longer Active Jillina Frazell [facility] [employer] Active PREDNISONE 20 MG TAB 2 tabs daily for 3 days, 1 tab daily for 3 days, 1/2 tab daily for 2 days PREDNISONE 33791052419 No Longer Active Jillina Frazell [facility] [employer] Active FLUTICASONE PROPIONATE 50 MCG/ACT SUSP 1 to 2 sprays each nostril daily 03/20 FLUTICASONE PROPIONATE 34191311237 No Longer Active Jillina Frazell [facility] [employer] Active GUAIFENESIN 600 MG [id number] 1 twice a day as needed for congestion GUAIFENESIN 94163044143 No Longer Active Jillina Frazell [facility] [employer] Active CEFDINIR 300 MG CAPS by mouth twice a day CEFDINIR 32611109900 No Longer Active Jillina Frazell [facility] [employer] Active PREDNISONE 20 MG TAB 1 tablet twice daily for 2 days, then 1 tablet once daily for 2 days PREDNISONE 74891113244 No Longer Active Jillina Frazell [facility] [employer] Active PREDNISONE 20 MG TAB 2 tabs daily for 3 days, 1 tab daily for 3 days, 1/2 tab daily for 2 days PREDNISONE 73638747643 No Longer Active Margarito Kelley MD Active IRVING-D ALLERGY & CONGESTION [id number] 1 po bid FEXOFENADINE-PSEUDOEPHEDRINE HY72A-LGB 51947735944 No Longer Active Margarito Kelley MD Active PREDNISONE 20 MG TAB 2 tabs daily for 3 days, 1 tab daily for 3 days, 1/2 tab daily for 2 days PREDNISONE 82134133124 No Longer Active Jillina Frazell [facility] [employer] Active CEFDINIR 300 MG CAPS 1 cap by mouth twice a day CEFDINIR 06856313076 No Longer Active Jillina Frazell [facility] [employer] Active E-Z SPACER ERIBERTO use with proair inhalier every 4 times as need. SPACER/AERO-HOLDING CHAMBERS 09147687713 No Longer Active Jillina Frazell [facility] Active PROAIR HFA 108 (90 BASE) MCG/ACT AERS 2 puffs every 4 hours as needed 2014 ALBUTEROL SULFATE 57841729727 No Longer Active Jillina Frazell [facility] [employer] Active CEFTIN 500 MG TAB 1 tablet by mouth twice daily for ten days. CEFUROXIME AXETIL 11496067665 No Longer Active Jillina Frazell [facility] [employer] Active PREDNISONE 20 MG TAB 2 tabs daily for 3 days, 1 tab daily for 3 days, 1/2 tab daily for 2 days PREDNISONE 09503908255 No Longer Active Margarito Kelley MD Active CEPHALEXIN 500 MG CAPS 1 tablet by mouth three times daily for ten days 06/25 CEPHALEXIN 38263158924 No Longer Active Renée Adames APRN Active MEDROL (MARY) 4 MG TABS 6 pills on day 1, 5 pills on day 2, 4 pills on day 3, 4 pills on day 4, 2 pills on day 5, 1 pill on day 6 METHYLPREDNISOLONE 37699848248 No Longer Active Annita Mejia MD PhD Active ZITHROMAX Z-MARY 250 MG TABS 2 today and then 1 daily for 4 days AZITHROMYCIN 31166312368 No Longer Active Annita Mejia MD PhD Active GUAIFENESIN-CODEINE 100-10 MG/5ML SYRP 5ml every 4 to 6 hours as needed for cough GUAIFENESIN-CODEINE 22882345574 No Longer Active Annita Mejia MD PhD Active FLONASE 50 MCG/ACT SUSP 1 spray each nostril am and hs FLUTICASONE PROPIONATE 86331694196 No Longer Active Kendell Coronado MD Active MELOXICAM 15 MG TABS 1 po q day for pain with food MELOXICAM 85021439405 No Longer Active Kendell Coronado MD Active HYDROCODONE-ACETAMINOPHEN 5-325 MG TABS 1-2 q 4-6 hrs prn pain 20 tabs 07/04 HYDROCODONE-ACETAMINOPHEN 87996914723 No Longer Active Daniele Mcfadden DO Active PREDNISONE 20 MG TAB 1 tablet twice daily for 2 days, then 1 tablet once daily for 2 days PREDNISONE 92082314113 No Longer Active Daniele Mcfadden DO Active PREDNISONE 20 MG TAB 1 po bid 2 days, then daily for 2 days 12/27 PREDNISONE 07030211176 No Longer Active Alexander LOPEZ Active AZITHROMYCIN 250 MG TABS 2 po qd x 1 day, then 1 po qd x 4 days AZITHROMYCIN 93654264952 No Longer Active Daniele Mcfadden DO Active MUCINEX MAXIMUM STRENGTH TN04V-DOH 1 po qd GUAIFENESIN XR12H- TAB 15681948573 No Longer Active Daniele Mcfadden DO Active AZITHROMYCIN 250 MG TABS 2 po qd x 1 day, then 1 po qd x 4 days AZITHROMYCIN 89846911579 No Longer Active Margarito Kelley MD Active MUCINEX MAXIMUM STRENGTH MB69B-OHP 1 po qd MUCINEX MAXIMUM STRENGTH NB69J-ZZY GUAIFENESIN LW61V-UBY Inactive PREDNISONE 20 MG TAB 1 po bid 2 days, then daily for 2 days 12/27 PREDNISONE 20 MG TAB 838613 PREDNISONE Inactive PREDNISONE 20 MG TAB 1 tablet twice daily for 2 days, then 1 tablet once daily for 2 days PREDNISONE 20 MG TAB 939827 PREDNISONE Inactive HYDROCODONE-ACETAMINOPHEN 5-325 MG TABS 1-2 q 4-6 hrs prn pain 20 tabs 07/04 HYDROCODONE-ACETAMINOPHEN 5-325 MG TABS 325916 HYDROCODONE- ACETAMINOPHEN Inactive MELOXICAM 15 MG TABS 1 po q day for pain with food MELOXICAM 15 MG TABS 664914 MELOXICAM Inactive FLONASE 50 MCG/ACT SUSP 1 spray each nostril am and hs FLONASE 50 MCG/ACT SUSP 8642713 FLUTICASONE PROPIONATE Inactive GUAIFENESIN-CODEINE 100-10 MG/5ML SYRP 5ml every 4 to 6 hours as needed for cough GUAIFENESIN-CODEINE 100-10 MG/5ML SYRP 925354 GUAIFENESIN-CODEINE Inactive ZITHROMAX Z-MARY 250 MG TABS 2 today and then 1 daily for 4 days ZITHROMAX Z-MARY 250 MG TABS 1307942 AZITHROMYCIN Inactive CEFTIN 500 MG TAB 1 tablet by mouth twice daily for ten days. CEFTIN 500 MG TAB 471993 CEFUROXIME AXETIL Inactive PROAIR HFA 108 (90 BASE) MCG/ACT AERS 2 puffs every 4 hours as needed 2014 PROAIR HFA 108 (90 BASE) MCG/ACT AERS ALBUTEROL SULFATE Inactive E-Z SPACER ERIBERTO use with proair inhalier every 4 times as need. E-Z SPACER ERIBERTO SPACER/AERO-HOLDING CHAMBERS Inactive IRVING-D ALLERGY & CONGESTION VB08Y-OUD 1 po bid IRIVNG-D ALLERGY & CONGESTION BB47Z-FUG FEXOFENADINE-PSEUDOEPHEDRINE XR12H- TAB Inactive PREDNISONE 20 MG TAB 1 tablet twice daily for 2 days, then 1 tablet once daily for 2 days PREDNISONE 20 MG TAB 528542 PREDNISONE Inactive GUAIFENESIN 600 MG MP95E-CMW 1 twice a day as needed for congestion GUAIFENESIN 600 MG VS58H-OTP GUAIFENESIN Inactive FLUTICASONE PROPIONATE 50 MCG/ACT SUSP 1 to 2 sprays each nostril daily 03/20 FLUTICASONE PROPIONATE 50 MCG/ACT SUSP 4361309 FLUTICASONE PROPIONATE Inactive MUCINEX D 60-600 MG VE01Z-OJL 1 po BID PRN Congestion MUCINEX D 60-600 MG TV74O-EID PSEUDOEPHEDRINE-GUAIFENESIN Inactive AZITHROMYCIN 250 MG TABS 2 po qd x 1 day, then 1 po qd x 4 days AZITHROMYCIN 250 MG TABS 5362686 AZITHROMYCIN Inactive AZITHROMYCIN 250 MG TABS 2 po qd x 1 day, then 1 po qd x 4 days AZITHROMYCIN 250 MG TABS 4466194 AZITHROMYCIN Inactive MEDROL (MARY) 4 MG TABS 6 pills on day 1, 5 pills on day 2, 4 pills on day 3, 4 pills on day 4, 2 pills on day 5, 1 pill on day 6 MEDROL (MARY) 4 MG TABS 069810 METHYLPREDNISOLONE Inactive CEPHALEXIN 500 MG CAPS 1 tablet by mouth three times daily for ten days 06/25 CEPHALEXIN 500 MG CAPS 691370 CEPHALEXIN Inactive PREDNISONE 20 MG TAB 2 tabs daily for 3 days, 1 tab daily for 3 days, 1/2 tab daily for 2 days PREDNISONE 20 MG TAB 529348 PREDNISONE Inactive CEFDINIR 300 MG CAPS 1 cap by mouth twice a day CEFDINIR 300 MG CAPS 441083 CEFDINIR Inactive PREDNISONE 20 MG TAB 2 tabs daily for 3 days, 1 tab daily for 3 days, 1/2 tab daily for 2 days PREDNISONE 20 MG TAB 066704 PREDNISONE Inactive PREDNISONE 20 MG TAB 2 tabs daily for 3 days, 1 tab daily for 3 days, 1/2 tab daily for 2 days PREDNISONE 20 MG TAB 592581 PREDNISONE Inactive CEFDINIR 300 MG CAPS by mouth twice a day CEFDINIR 300 MG CAPS 246691 CEFDINIR Inactive PREDNISONE 20 MG TAB 2 tabs daily for 3 days, 1 tab daily for 3 days, 1/2 tab daily for 2 days PREDNISONE 20 MG TAB 337676 PREDNISONE Inactive CEFDINIR 300 MG CAPS 1 po BID x 10 days CEFDINIR 300 MG CAPS 20021026 CEFDINIR Inactive AZITHROMYCIN 250 MG TABS 2 po qd x 1 day, then 1 po qd x 4 days AZITHROMYCIN 250 MG TABS 0501609 AZITHROMYCIN Inactive PREDNISONE 20 MG TAB 2 tabs daily for 3 days, 1 tab daily for 3 days, 1/2 tab daily for 2 days start tomorrow 07/31/16 PREDNISONE 20 MG TAB 760242 PREDNISONE Inactive Immunizations Vaccine Administration Date Value Standard Description Human Papillomavirus vaccine (Gardasil) #2, (HPV #2) Gardasil [ CVX62] human papilloma virus vaccine, quadrivalent Seasonal influenza vaccine, injectable, containing preservative, for > 3 years old (Afluria, FluLaval, Fluzone, Fluvirin, Fluarix, Agriflu(>=18 yo)) Fluzone (>3 yrs.) [[id number]] Influenza, seasonal, injectable Human Papillomavirus Vaccine (Gardasil) #1 Given (HPV #1) Gardasil [CVX62] human papilloma virus vaccine, quadrivalent hepatitis A immunization #2 Havrix-Pedi hepatitis A vaccine, unspecified formulation Boostrix (Tetanus toxoid, reduced diphtheria toxoid and acellular pertussis vaccine, adsorbed), booster Boostrix [[id number]] tetanus toxoid, reduced diphtheria toxoid, and acellular pertussis vaccine, adsorbed hepatitis A immunization #1 Havrix-Pedi hepatitis A vaccine, unspecified formulation oral polio vaccine (OPV) #4 IPV poliovirus vaccine, unspecified formulation MMR (measles, mumps, rubella) virus immunization #2 MMR DPT immunization #5 DTaP Hemophilus influenza B immunization #4 Historical [...] #3 Historical hepatitis B vaccine, unspecified formulation oral polio vaccine (OPV) #2 IPV poliovirus vaccine, unspecified formulation Hemophilus influenza B immunization #2 Historical Haemophilus influenzae type b vaccine, conjugate unspecified formulation DPT immunization #2 DTaP oral polio vaccine (OPV) #1 IPV poliovirus vaccine, unspecified formulation DPT immunization #1 DTaP hepatitis B vaccine #2 given Historical hepatitis B vaccine, unspecified formulation Hemophilus influenza B immunization #1 Historical Haemophilus influenzae type b vaccine, conjugate unspecified formulation hepatitis B vaccine #1 given [...] Name Value Unit Range Description Lab Report: MISA INFLUENZA A/B, RapidStrep Rflx/Cx - Lab Microbial identification kit, rapid strep method Negative-Throat Culture to Follow Negative Lab Report: MISA INFLUENZA A/B, RapidStrep Rflx/Cx - Toxicology rapid flu test Negative Negative;Positive Encounters Code Encounter Date Provider Facility CPT-50629 Level 3 Est. Patient 10:49:47 FIELD SUPPORT REPRESENTATIVE Griselda Horvath [facility] CPT-95655 Level 3 Est. Patient 08:43:59 FIELD SUPPORT REPRESENTATIVE Jessika Nunes [facility] CPT-83017 Level 3 Est. Patient 09:05:19 FIELD SUPPORT REPRESENTATIVE Griselda Horvath [facility] CPT-37854 Level 3 Est. Patient 15:45:46 CDT Griselda Horvath [facility] CPT-26233 Level 3 Est. Patient 14:15:52 CDT Daniele Mcfadden [facility] CPT-37658 Level 3 Est. Patient 13:57:19 FIELD SUPPORT REPRESENTATIVE Margarito Kelley MD [facility] CPT-90625 Level 3 Est. Patient 09:16:05 FIELD SUPPORT REPRESENTATIVE Margarito Kelley MD [facility] CPT-12653 Level 3 Est. Patient 15:37:06 FIELD SUPPORT REPRESENTATIVE Daniele Mcfadden [facility] CPT-21987 Level 3 Est. Patient 11:56:34 FIELD SUPPORT REPRESENTATIVE Renée Adames [facility] CPT-08155 Level 3 Est. Patient 12:19:42 CDT Daniele Mcfadden [facility] CPT-84520 Level 3 Est. Patient 11:08:45 CDT Annita Mejia MD PhD [facility] CPT-35817 Level 3 Est. Patient 12:00:17 CDT Kendell Coronado MD [facility] CPT-80722 Level 3 Est. Patient 12:27:25 CDT Daniele Mcfadden [facility] CPT-12510 Level 3 Est. Patient 18:45:11 FIELD SUPPORT REPRESENTATIVE Daniele Mcfadden [facility] CPT-31791 Level 3 Est. Patient 10:12:24 FIELD SUPPORT REPRESENTATIVE Daniele Mcfadden [facility] CPT-80046 Level 3 Est. Patient 14:35:11 FIELD SUPPORT REPRESENTATIVE Daniele Mcfadden [facility] CPT-02849 Level 3 Est. Patient 14:11:04 CDT Daniele Mcfadden [facility] CPT-32986 Level 3 Est. Patient 10:52:13 CDT Alexander LOPEZ [facility] CPT-21024 Level 3 Est. Patient 11:01:08 FIELD SUPPORT REPRESENTATIVE Daniele Mcfadden [facility] CPT-71823 Level 3 Est. Patient 10:55:35 CDT Daniele Mcfadden [facility] CPT-04583 Level 3 Est. Patient 14:03:08 CDT Daniele Mcafdden [facility] CPT-28925 Level 3 Est. Patient 11:26:19 CDT Margarito Kelley MD [facility] CPT-49578 Level 2 Est. Patient 15:32:04 FIELD SUPPORT REPRESENTATIVE Daniele Mcfadden [facility] CPT-55711 Level 3 Est. Patient 16:01:26 FIELD SUPPORT REPRESENTATIVE Daniele Mcfadden [facility] CPT-98391 Level 3 Est. Patient 06:37:10 FIELD SUPPORT REPRESENTATIVE Daniele Mcfadden DO [facility] Procedures Code Procedure Name Date Entry Date Standard Description CPT-65053 Addl Vx - Ix admin via ID IM or jet injects without counseling by physician 14:37:19 CDT CPT-45340 Meningococcal B, recombinant vaccine 14:37:19 CDT 03/05 CPT-05179 First Vx - Ix admin via ID IM or jet injects without counseling by physician 14:37:19 CDT CPT-95055 Menveo Intramuscular Solution Reconstituted 14:37:19 CDT CPT-66578 Meningococcal Conjugate Vacine (Menactra) 11:20:04 CDT CPT-05770 Throat Culture - LAB USE ONLY 12:15:45 FIELD SUPPORT REPRESENTATIVE CPT-13001 Misa Flu A/B - LAB USE ONLY 12:15:45 FIELD SUPPORT REPRESENTATIVE CPT-78477 Rapid Strep (Reflex throat) - LAB USE ONLY 12:15:45 FIELD SUPPORT REPRESENTATIVE CPT-82658 Rapid Strep (Grp A) - LAB USE ONLY 13:06:06 CDT CPT-89184 Abd compl w upright 12:34:39 CDT CPT-88277 Immunization Single Admin 11:38:41 CDT CPT-45943 Fluzone Quadrivalent Intramuscular Suspension 0.5 ML 11: 38:41 CDT CPT-OV Office Visit 14:45:12 FIELD SUPPORT REPRESENTATIVE CPT-12228 [employer]d [employer] inc all organs plus proximal aorta and distal IVC 2012 12:13:02 FIELD SUPPORT REPRESENTATIVE CPT-26964 Abd compl w upright 15:12:58 FIELD SUPPORT REPRESENTATIVE CPT-54940 Venipuncture Draw Fee 14:38:32 FIELD SUPPORT REPRESENTATIVE CPT-75017 Administration single or combination vaccine inc oral 17 :10:04 CDT CPT-51290 Gardasil 17:10:04 CDT CPT-39458 Venipuncture Draw Fee 16:07:54 FIELD SUPPORT REPRESENTATIVE CPT-79422 Administration 2+ single or combination vaccines inc oral 17:22:02 CDT CPT-74935 Administration single or combination vaccine inc oral 17 :22:02 CDT CPT-97483 Influenza split virus > age 3 17:22:02 CDT CPT-99301 Gardasil 17:22:02 CDT CPT-11995 Administration 2+ single or combination vaccines inc oral 14:38:31 CDT CPT-74564 Administration single or combination vaccine inc oral 14 :38:31 CDT CPT-98387 Meningococcal Conjugate Vacine (Menactra) 14:38:31 CDT CPT-35259 Gardasil 14:38:31 CDT
--- OUTSIDE RECORDS SUMMARY | 2018-02-15 06:53 | XMS REPORT | Clinical Summary ---
Author Author Admin, OLEG Organization [facility] Address Unknown Phone Unavailable Allergies, [...] unspecified site Sinusitis 473.9 Active Griselda Horvath COMPOUNDING SCALER Unspecified sinusitis (chronic) Eustachian tube dysfunction, right [...] Pack MD MUSCLE RUPTURE, NONTRAUMATIC ICD-728.83 Inactive rErol Pack MD Abdominal pain ICD-789.00 Inactive Errol [...] Status Provider Patient Instruction GUAIFENESIN 600 MG [id number] 1 twice a day as needed for congestion GUAIFENESIN 11364577448 Active Jillina Frazell COMPOUNDING SCALER Active FLUTICASONE PROPIONATE 50 MCG/ACT SUSP 1 to 2 sprays each nostril daily 03/20 FLUTICASONE PROPIONATE 40820168332 Active Jillina Frazell COMPOUNDING SCALER Active CEFDINIR 300 MG CAPS by mouth twice a day CEFDINIR 20605788427 No Longer Active Jillina Frazell COMPOUNDING SCALER Active PREDNISONE 20 MG TAB 1 tablet twice daily for 2 days, then 1 tablet once daily for 2 days PREDNISONE 30966027526 No Longer Active Jillina Frazell COMPOUNDING SCALER Active PREDNISONE 20 MG TAB 2 tabs daily for 3 days, 1 tab daily for 3 days, 1/2 tab daily for 2 days PREDNISONE 97771302514 No Longer Active Margarito Kelley MD Active IRVING-D ALLERGY & CONGESTION [id number]-[id number] 1 po bid FEXOFENADINE-PSEUDOEPHEDRINE DB69V-ZWH 34103666163 No Longer Active Margarito Kelley MD Active PREDNISONE 20 MG TAB 2 tabs daily for 3 days, 1 tab daily for 3 days, 1/2 tab daily for 2 days PREDNISONE 80923735758 No Longer Active Jillina Frazell COMPOUNDING SCALER Active CEFDINIR 300 MG CAPS 1 cap by mouth twice a day CEFDINIR 79333913013 No Longer Active Jillina Frazell COMPOUNDING SCALER Active E-Z SPACER ERIBERTO use with proair inhalier every 4 times as need. SPACER/AERO-HOLDING CHAMBERS 85100938748 No Longer Active Jillina Frazell COMPOUNDING SCALER Active PROAIR HFA 108 (90 BASE) MCG/ACT AERS 2 puffs every 4 hours as needed 2014 ALBUTEROL SULFATE 60340906623 No Longer Active Jillina Frazell COMPOUNDING SCALER Active CEFTIN 500 MG TAB 1 tablet by mouth twice daily for ten days. CEFUROXIME AXETIL 04907090382 No Longer Active Jillina Frazell COMPOUNDING SCALER Active PREDNISONE 20 MG TAB 2 tabs daily for 3 days, 1 tab daily for 3 days, 1/2 tab daily for 2 days PREDNISONE 53541222454 No Longer Active Margarito Kelley MD Active CEPHALEXIN 500 MG CAPS 1 tablet by mouth three times daily for ten days 06/25 CEPHALEXIN 28566294391 No Longer Active Renée Adames ALEX Active MEDROL (MARY) 4 MG TABS 6 pills on day 1, 5 pills on day 2, 4 pills on day 3, 4 pills on day 4, 2 pills on day 5, 1 pill on day 6 METHYLPREDNISOLONE 03615388616 No Longer Active Annita Mejia MD PhD Active ZITHROMAX Z-MARY 250 MG TABS 2 today and then 1 daily for 4 days AZITHROMYCIN 31744949745 No Longer Active Annita Mejia MD PhD Active GUAIFENESIN-CODEINE 100-10 MG/5ML SYRP 5ml every 4 to 6 hours as needed for cough GUAIFENESIN-CODEINE 38625125125 No Longer Active Annita Mejia MD PhD Active FLONASE 50 MCG/ACT SUSP 1 spray each nostril am and hs FLUTICASONE PROPIONATE 98403400268 No Longer Active Kendell Coronado MD Active MELOXICAM 15 MG TABS 1 po q day for pain with food MELOXICAM 79315438653 No Longer Active Kendell Coronado MD Active HYDROCODONE-ACETAMINOPHEN 5-325 MG TABS 1-2 q 4-6 hrs prn pain 20 tabs 07/04 HYDROCODONE-ACETAMINOPHEN 30135383654 No Longer Active Daniele Mcfadden DO Active PREDNISONE 20 MG TAB 1 tablet twice daily for 2 days, then 1 tablet once daily for 2 days PREDNISONE 64356250739 No Longer Active Daniele Mcfadden DO Active PREDNISONE 20 MG TAB 1 po bid 2 days, then daily for 2 days 12/27 PREDNISONE 62926152347 No Longer Active Alexander LOPEZ Active AZITHROMYCIN 250 MG TABS 2 po qd x 1 day, then 1 po qd x 4 days AZITHROMYCIN 99305995226 No Longer Active Daniele Mcfadden DO Active MUCINEX MAXIMUM STRENGTH [id number] 1 po qd GUAIFENESIN XR12H- TAB 10292173518 No Longer Active Daniele Mcfadden DO Active AZITHROMYCIN 250 MG TABS 2 po qd x 1 day, then 1 po qd x 4 days AZITHROMYCIN 31417790974 No Longer Active Margarito Kelley MD Active MUCINEX MAXIMUM STRENGTH [id number]-GTC 1 po qd MUCINEX MAXIMUM STRENGTH [id number]-DFO GUAIFENESIN NC82F-NGK Inactive PREDNISONE 20 MG TAB 1 po bid 2 days, then daily for 2 days 12/27 PREDNISONE 20 MG TAB 301436 PREDNISONE Inactive PREDNISONE 20 MG TAB 1 tablet twice daily for 2 days, then 1 tablet once daily for 2 days PREDNISONE 20 MG TAB 305730 PREDNISONE Inactive HYDROCODONE-ACETAMINOPHEN 5-325 MG TABS 1-2 q 4-6 hrs prn pain 20 tabs 07/04 HYDROCODONE-ACETAMINOPHEN 5-325 MG TABS 235473 HYDROCODONE- ACETAMINOPHEN Inactive MELOXICAM 15 MG TABS 1 po q day for pain with food MELOXICAM 15 MG TABS 820173 MELOXICAM Inactive FLONASE 50 MCG/ACT SUSP 1 spray each nostril am and hs FLONASE 50 MCG/ACT SUSP FLUTICASONE PROPIONATE Inactive GUAIFENESIN-CODEINE 100-10 MG/5ML SYRP 5ml every 4 to 6 hours as needed for cough GUAIFENESIN-CODEINE 100-10 MG/5ML SYRP 299079 GUAIFENESIN-CODEINE Inactive ZITHROMAX Z-MARY 250 MG TABS 2 today and then 1 daily for 4 days ZITHROMAX Z-MARY 250 MG TABS 8573101 AZITHROMYCIN Inactive CEFTIN 500 MG TAB 1 tablet by mouth twice daily for ten days. CEFTIN 500 MG TAB 295308 CEFUROXIME AXETIL Inactive PROAIR HFA 108 (90 BASE) MCG/ACT AERS 2 puffs every 4 hours as needed 2014 PROAIR HFA 108 (90 BASE) MCG/ACT AERS ALBUTEROL SULFATE Inactive E-Z SPACER ERIBERTO use with proair inhalier every 4 times as need. E-Z SPACER ERIBERTO SPACER/AERO-HOLDING CHAMBERS Inactive IRVING-D ALLERGY & CONGESTION [id number] 1 po bid IRVING-D ALLERGY & CONGESTION [id number] FEXOFENADINE-PSEUDOEPHEDRINE XR12H- TAB Inactive PREDNISONE 20 MG TAB 1 tablet twice daily for 2 days, then 1 tablet once daily for 2 days PREDNISONE 20 MG TAB 194456 PREDNISONE Inactive AZITHROMYCIN 250 MG TABS 2 po qd x 1 day, then 1 po qd x 4 days AZITHROMYCIN 250 MG TABS 4200737 AZITHROMYCIN Inactive AZITHROMYCIN 250 MG TABS 2 po qd x 1 day, then 1 po qd x 4 days AZITHROMYCIN 250 MG TABS 4296327 AZITHROMYCIN Inactive MEDROL (MARY) 4 MG TABS 6 pills on day 1, 5 pills on day 2, 4 pills on day 3, 4 pills on day 4, 2 pills on day 5, 1 pill on day 6 MEDROL (MARY) 4 MG TABS 262424 METHYLPREDNISOLONE Inactive CEPHALEXIN 500 MG CAPS 1 tablet by mouth three times daily for ten days 06/25 CEPHALEXIN 500 MG CAPS 875943 CEPHALEXIN Inactive PREDNISONE 20 MG TAB 2 tabs daily for 3 days, 1 tab daily for 3 days, 1/2 tab daily for 2 days PREDNISONE 20 MG TAB 514812 PREDNISONE Inactive CEFDINIR 300 MG CAPS 1 cap by mouth twice a day CEFDINIR 300 MG CAPS 524477 CEFDINIR Inactive PREDNISONE 20 MG TAB 2 tabs daily for 3 days, 1 tab daily for 3 days, 1/2 tab daily for 2 days PREDNISONE 20 MG TAB 983460 PREDNISONE Inactive PREDNISONE 20 MG TAB 2 tabs daily for 3 days, 1 tab daily for 3 days, 1/2 tab daily for 2 days PREDNISONE 20 MG TAB 333020 PREDNISONE Inactive CEFDINIR 300 MG CAPS by mouth twice a day CEFDINIR 300 MG CAPS 830777 CEFDINIR Inactive Immunizations Vaccine Administration Date Value Standard Description Human Papillomavirus vaccine (Gardasil) #2, (HPV #2) Gardasil [ CVX62] human papilloma virus vaccine, quadrivalent Seasonal influenza vaccine, injectable, containing preservative, for > 3 years old (Afluria, FluLaval, Fluzone, Fluvirin, Fluarix, Agriflu(>=18 yo)) Fluzone (>3 yrs.) [AMV866] Influenza, seasonal, injectable Human Papillomavirus Vaccine (Gardasil) #1 Given (HPV #1) Gardasil [CVX62] human papilloma virus vaccine, quadrivalent hepatitis A immunization #2 Havrix-Pedi hepatitis A vaccine, unspecified formulation Boostrix (Tetanus toxoid, reduced diphtheria toxoid and acellular pertussis vaccine, adsorbed), booster Boostrix [CFI697] tetanus toxoid, reduced diphtheria toxoid, and acellular [...] Negative Encounters Code Encounter Date Provider Facility CPT-98411 Level 3 Est. Patient 15:45:46 CDT Griselda Horvath [facility]-16738 Level 3 Est. Patient 14:15:52 CDT Daniele Mcfadden [facility]-28848 Level 3 Est. Patient 13:57:19 HEALTH TYPE TECHNICIAN Margarito Kelley MD [facility]-67754 Level 3 Est. Patient 09:16:05 HEALTH TYPE TECHNICIAN Margarito Kelley MD [facility]-84931 Level 3 Est. Patient 15:37:06 HEALTH TYPE TECHNICIAN Daniele Mcfadden [facility] CPT-22777 Level 3 Est. Patient 11:56:34 HEALTH TYPE TECHNICIAN Renée Adames [facility] CPT-75020 Level 3 Est. Patient 12:19:42 CDT Daniele Mcfadden [facility] CPT-49962 Level 3 Est. Patient 11:08:45 CDT Annita Mejia MD PhD [facility] CPT-22883 Level 3 Est. Patient 12:00:17 CDT eKndell Coronado MD [facility]-41402 Level 3 Est. Patient 12:27:25 CDT Daniele Mcfadden [facility] CPT-18656 Level 3 Est. Patient 18:45:11 HEALTH TYPE TECHNICIAN Daniele Mcfadden [facility] CPT-97200 Level 3 Est. Patient 10:12:24 HEALTH TYPE TECHNICIAN Daniele Mcfadden [facility] CPT-43663 Level 3 Est. Patient 14:35:11 HEALTH TYPE TECHNICIAN Daniele Mcfadden [facility] CPT-30419 Level 3 Est. Patient 14:11:04 CDT Daniele Mcfadden [facility] CPT-92998 Level 3 Est. Patient 10:52:13 CDT Alexander LOPEZ [facility] CPT-27193 Level 3 Est. Patient 11:01:08 HEALTH TYPE TECHNICIAN Daniele Mcfadden [facility] CPT-32761 Level 3 Est. Patient 10:55:35 CDT Daniele Mcfadden [facility] CPT-75154 Level 3 Est. Patient 14:03:08 CDT Daniele Mcfadden [facility] CPT-10321 Level 3 Est. Patient 11:26:19 CDT Margarito Kelley MD [facility] CPT-45717 Level 2 Est. Patient 15:32:04 HEALTH TYPE TECHNICIAN Daniele Mcfadden [facility] CPT-22903 Level 3 Est. Patient 16:01:26 HEALTH TYPE TECHNICIAN Daniele Mcfadden [facility] CPT-78843 Level 3 Est. Patient 06:37:10 HEALTH TYPE TECHNICIAN Daniele Mcfadden [facility] Procedures Code Procedure Name Date Entry Date Standard Description CPT-52645 Rapid Strep (Grp A) - LAB USE ONLY 13:06:06 CDT CPT-10240 Abd compl w upright 12:34:39 CDT CPT-80033 Immunization Single Admin 11:38:41 CDT CPT-76402 Fluzone Quadrivalent Intramuscular Suspension 0.5 ML 11: 38:41 CDT CPT-OV Office Visit 14:45:12 HEALTH TYPE TECHNICIAN CPT-72603 [employer] all organs plus proximal aorta and distal IVC 2012 12:13:02 HEALTH TYPE TECHNICIAN CPT-01371 Abd compl w upright 15:12:58 HEALTH TYPE TECHNICIAN CPT-91243 Venipuncture Draw Fee 14:38:32 HEALTH TYPE TECHNICIAN CPT-66054 Administration single or combination vaccine inc oral 17 :10:04 CDT CPT-80987 Gardasil 17:10:04 CDT CPT-05769 Venipuncture Draw Fee 16:07:54 HEALTH TYPE TECHNICIAN CPT-11400 Administration 2+ single or combination vaccines inc oral 17:22:02 CDT CPT-95836 Administration single or combination vaccine inc oral 17 :22:02 CDT CPT-42417 Influenza split virus > age 3 17:22:02 CDT CPT-04427 Gardasil 17:22:02 CDT CPT-64017 Administration 2+ single or combination vaccines inc oral 14:38:31 CDT CPT-07490 Administration single or combination vaccine inc oral 14 :38:31 CDT CPT-25146 Meningococcal Conjugate Vacine (Menactra) 14:38:31 CDT CPT-94904 Gardasil 14:38:31 CDT
--- OUTSIDE RECORDS SUMMARY | 2018-02-15 06:53 | XMS REPORT | Clinical Summary ---
Author Author Admin, OLEG Organization [facility] Address Unknown Phone Unavailable Allergies, Adverse Reactions, [...] unspecified site Sinusitis 473.9 Active Griselda Horvath BEAD STRINGER Unspecified sinusitis (chronic) Eustachian tube dysfunction, right 381.81 Active Margarito Kelley MD Dysfunction of Eustachian tube Pharyngitis-Acute 462 Active Daniele Mcfadden DO Acute pharyngitis URI 465.9 Active Griselda Horvath BEAD STRINGER Acute upper respiratory infections of unspecified site [...] 1 po BID x 10 days CEFDINIR 59239647767 Active Jillina Frazell BEAD STRINGER Active MUCINEX D 60-600 MG [id number] 1 po BID PRN Congestion PSEUDOEPHEDRINE-GUAIFENESIN 71157130592 Active Jillina Frazell BEAD STRINGER Active PREDNISONE 20 MG TAB 2 tabs daily for 3 days, 1 tab daily for 3 days, 1/2 tab daily for 2 days PREDNISONE 81940453971 No Longer Active Jillina Frazell BEAD STRINGER Active FLUTICASONE PROPIONATE 50 MCG/ACT SUSP 1 to 2 sprays each nostril daily 03/20 FLUTICASONE PROPIONATE 28906190659 No Longer Active Jillina Frazell BEAD STRINGER Active GUAIFENESIN 600 MG IA35A-TQF 1 twice a day as needed for congestion GUAIFENESIN 35949978010 No Longer Active Jillina Frazell BEAD STRINGER Active CEFDINIR 300 MG CAPS by mouth twice a day CEFDINIR 96138008431 No Longer Active Jillina Frazell BEAD STRINGER Active PREDNISONE 20 MG TAB 1 tablet twice daily for 2 days, then 1 tablet once daily for 2 days PREDNISONE 51858965723 No Longer Active Jillina Frazell BEAD STRINGER Active PREDNISONE 20 MG TAB 2 tabs daily for 3 days, 1 tab daily for 3 days, 1/2 tab daily for 2 days PREDNISONE 85338123569 No Longer Active Margarito Kelley MD Active IRVING-D ALLERGY & CONGESTION [id number] 1 po bid FEXOFENADINE-PSEUDOEPHEDRINE [id number]-TXE 26877401942 No Longer Active Margarito Kelley MD Active PREDNISONE 20 MG TAB 2 tabs daily for 3 days, 1 tab daily for 3 days, 1/2 tab daily for 2 days PREDNISONE 51659450974 No Longer Active Jillina Frazell BEAD STRINGER Active CEFDINIR 300 MG CAPS 1 cap by mouth twice a day CEFDINIR 52391585138 No Longer Active Griselda Horvath APRN Active E-Z SPACER ERIBERTO use with proair inhalier every 4 times as need. SPACER/AERO-HOLDING CHAMBERS 72207302928 No Longer Active Jillina Jiml BEAD STRINGER Active PROAIR HFA 108 (90 BASE) MCG/ACT AERS 2 puffs every 4 hours as needed 2014 ALBUTEROL SULFATE 70826274952 No Longer Active Ezekielllina Jiml BEAD STRINGER Active CEFTIN 500 MG TAB 1 tablet by mouth twice daily for ten days. CEFUROXIME AXETIL 63728653370 No Longer Active Griselda Horvath APRN Active PREDNISONE 20 MG TAB 2 tabs daily for 3 days, 1 tab daily for 3 days, 1/2 tab daily for 2 days PREDNISONE 44113318811 No Longer Active Margarito Kelley MD Active CEPHALEXIN 500 MG CAPS 1 tablet by mouth three times daily for ten days 06/25 CEPHALEXIN 41564045638 No Longer Active Renée Adames APRN Active MEDROL (MARY) 4 MG TABS 6 pills on day 1, 5 pills on day 2, 4 pills on day 3, 4 pills on day 4, 2 pills on day 5, 1 pill on day 6 METHYLPREDNISOLONE 72749743082 No Longer Active Annita Mejia MD PhD Active ZITHROMAX Z-MARY 250 MG TABS 2 today and then 1 daily for 4 days AZITHROMYCIN 22545753671 No Longer Active Annita Mejia MD PhD Active GUAIFENESIN-CODEINE 100-10 MG/5ML SYRP 5ml every 4 to 6 hours as needed for cough GUAIFENESIN-CODEINE 48301251770 No Longer Active Annita Mejia MD PhD Active FLONASE 50 MCG/ACT SUSP 1 spray each nostril am and hs FLUTICASONE PROPIONATE 10558988969 No Longer Active Kendell Coronado MD Active MELOXICAM 15 MG TABS 1 po q day for pain with food MELOXICAM 90817617972 No Longer Active Kendell Coronado MD Active HYDROCODONE-ACETAMINOPHEN 5-325 MG TABS 1-2 q 4-6 hrs prn pain 20 tabs 07/04 HYDROCODONE-ACETAMINOPHEN 66390253256 No Longer Active Daniele Mcfadden DO Active PREDNISONE 20 MG TAB 1 tablet twice daily for 2 days, then 1 tablet once daily for 2 days PREDNISONE 84764568131 No Longer Active Daniele Mcfadden DO Active PREDNISONE 20 MG TAB 1 po bid 2 days, then daily for 2 days 12/27 PREDNISONE 18152515077 No Longer Active Alexander LOPEZ Active AZITHROMYCIN 250 MG TABS 2 po qd x 1 day, then 1 po qd x 4 days AZITHROMYCIN 09001981308 No Longer Active Daniele Mcfadden DO Active MUCINEX MAXIMUM STRENGTH QZ03A-LYC 1 po qd GUAIFENESIN XR12H- TAB 12617681091 No Longer Active Daniele Mcfadden DO Active AZITHROMYCIN 250 MG TABS 2 po qd x 1 day, then 1 po qd x 4 days AZITHROMYCIN 51665143822 No Longer Active Margarito Kelley MD Active IRVING-D ALLERGY & CONGESTION BQ68C-ABV 1 po bid IRVING-D ALLERGY & CONGESTION [id number]-AWV FEXOFENADINE-PSEUDOEPHEDRINE XR12H- TAB Inactive MUCINEX MAXIMUM STRENGTH JB95M-KJB 1 po qd MUCINEX MAXIMUM STRENGTH BP47Q-NQP GUAIFENESIN BM09S-KWF Inactive CEFTIN 500 MG TAB 1 tablet by mouth twice daily for ten days. CEFTIN 500 MG TAB 397573 CEFUROXIME AXETIL Inactive PREDNISONE 20 MG TAB 1 po bid 2 days, then daily for 2 days 12/27 PREDNISONE 20 MG TAB 038588 PREDNISONE Inactive PREDNISONE 20 MG TAB 1 tablet twice daily for 2 days, then 1 tablet once daily for 2 days PREDNISONE 20 MG TAB 002211 PREDNISONE Inactive PREDNISONE 20 MG TAB 1 tablet twice daily for 2 days, then 1 tablet once daily for 2 days PREDNISONE 20 MG TAB 313167 PREDNISONE Inactive PREDNISONE 20 MG TAB 2 tabs daily for 3 days, 1 tab daily for 3 days, 1/2 tab daily for 2 days PREDNISONE 20 MG TAB 121552 PREDNISONE Inactive PREDNISONE 20 MG TAB 2 tabs daily for 3 days, 1 tab daily for 3 days, 1/2 tab daily for 2 days PREDNISONE 20 MG TAB 896627 PREDNISONE Inactive PREDNISONE 20 MG TAB 2 tabs daily for 3 days, 1 tab daily for 3 days, 1/2 tab daily for 2 days PREDNISONE 20 MG TAB 628662 PREDNISONE Inactive PREDNISONE 20 MG TAB 2 tabs daily for 3 days, 1 tab daily for 3 days, 1/2 tab daily for 2 days PREDNISONE 20 MG TAB 310602 PREDNISONE Inactive CEPHALEXIN 500 MG CAPS 1 tablet by mouth three times daily for ten days 06/25 CEPHALEXIN 500 MG CAPS 521927 CEPHALEXIN Inactive E-Z SPACER ERIBERTO use with proair inhalier every 4 times as need. E-Z SPACER ERIBERTO SPACER/AERO-HOLDING CHAMBERS Inactive MELOXICAM 15 MG TABS 1 po q day for pain with food MELOXICAM 15 MG TABS 555708 MELOXICAM Inactive AZITHROMYCIN 250 MG TABS 2 po qd x 1 day, then 1 po qd x 4 days AZITHROMYCIN 250 MG TABS 1392272 AZITHROMYCIN Inactive AZITHROMYCIN 250 MG TABS 2 po qd x 1 day, then 1 po qd x 4 days AZITHROMYCIN 250 MG TABS 2178131 AZITHROMYCIN Inactive CEFDINIR 300 MG CAPS 1 cap by mouth twice a day CEFDINIR 300 MG CAPS 20021026 CEFDINIR Inactive CEFDINIR 300 MG CAPS by mouth twice a day CEFDINIR 300 MG CAPS 20021026 CEFDINIR Inactive ZITHROMAX Z-MARY 250 MG TABS 2 today and then 1 daily for 4 days ZITHROMAX Z-MARY 250 MG TABS 4726021 AZITHROMYCIN Inactive FLONASE 50 MCG/ACT SUSP 1 spray each nostril am and hs FLONASE 50 MCG/ACT SUSP FLUTICASONE PROPIONATE Inactive HYDROCODONE-ACETAMINOPHEN 5-325 MG TABS 1-2 q 4-6 hrs prn pain 20 tabs 07/04 HYDROCODONE-ACETAMINOPHEN 5-325 MG TABS 482321 HYDROCODONE- ACETAMINOPHEN Inactive GUAIFENESIN 600 MG GS21J-OHT 1 twice a day as needed for congestion GUAIFENESIN 600 MG CY79H-QNW GUAIFENESIN Inactive FLUTICASONE PROPIONATE 50 MCG/ACT SUSP 1 to 2 sprays each nostril daily 03/20 FLUTICASONE PROPIONATE 50 MCG/ACT SUSP 8029890 FLUTICASONE PROPIONATE Inactive PROAIR HFA 108 (90 BASE) MCG/ACT AERS 2 puffs every 4 hours as needed 2014 PROAIR HFA 108 (90 BASE) MCG/ACT AERS ALBUTEROL SULFATE Inactive GUAIFENESIN-CODEINE 100-10 MG/5ML SYRP 5ml every 4 to 6 hours as needed for cough GUAIFENESIN-CODEINE 100-10 MG/5ML SYRP 661472 GUAIFENESIN-CODEINE Inactive MEDROL (MARY) 4 MG TABS 6 pills on day 1, 5 pills on day 2, 4 pills on day 3, 4 pills on day 4, 2 pills on day 5, 1 pill on day 6 MEDROL (MARY) 4 MG TABS 855520 METHYLPREDNISOLONE Inactive Immunizations Vaccine Administration Date Value Standard Description Seasonal influenza vaccine, injectable, containing preservative, for > 3 years old (Afluria, FluLaval, Fluzone, Fluvirin, Fluarix, Agriflu(>=18 yo)) Fluzone (>3 yrs.) [[id number]] Influenza, seasonal, injectable Human Papillomavirus vaccine (Gardasil) #2, (HPV #2) Gardasil [ CVX62] human papilloma virus vaccine, quadrivalent Human Papillomavirus Vaccine (Gardasil) #1 Given (HPV #1) Gardasil [CVX62] human papilloma virus vaccine, quadrivalent hepatitis A immunization #2 Havrix-Pedi hepatitis A vaccine, unspecified formulation Boostrix (Tetanus toxoid, reduced diphtheria toxoid and acellular pertussis vaccine, adsorbed), booster Boostrix [SUY571] tetanus toxoid, reduced diphtheria toxoid, and acellular [...] Negative Encounters Code Encounter Date Provider Facility CPT-01339 Level 3 Est. Patient 09:05:19 OSMAR Horvath [facility] CPT-42752 Level 3 Est. Patient 15:45:46 CDT Griselda Horvath [facility] CPT-37410 Level 3 Est. Patient 14:15:52 CDT Daniele Mcfadden [facility] CPT-38422 Level 3 Est. Patient 13:57:19 AEROLOGIST Margarito Kelley MD [facility] CPT-26525 Level 3 Est. Patient 09:16:05 AEROLOGIST Margarito Kelley MD [facility] CPT-10010 Level 3 Est. Patient 15:37:06 AEROLOGIST Daniele Mcfadden [facility] CPT-81318 Level 3 Est. Patient 11:56:34 AEROLOGIST Renée Adames [facility] CPT-42021 Level 3 Est. Patient 12:19:42 CDT Daniele Mcfadden [facility] CPT-08395 Level 3 Est. Patient 11:08:45 CDT Annita Mejia MD PhD [facility] CPT-61231 Level 3 Est. Patient 12:00:17 CDT Kendell Coronado MD [facility] CPT-13762 Level 3 Est. Patient 12:27:25 CDT Daniele Mcfadden [facility] CPT-36110 Level 3 Est. Patient 18:45:11 AEROLOGIST Daniele Mcfadden [facility] CPT-56727 Level 3 Est. Patient 10:12:24 AEROLOGIST Daniele Mcfadden [facility] CPT-33839 Level 3 Est. Patient 14:35:11 AEROLOGIST Daniele Mcfadden [facility] CPT-49569 Level 3 Est. Patient 14:11:04 CDT Daniele Mcfadden [facility] CPT-39670 Level 3 Est. Patient 10:52:13 CDT Alexander LOPEZ [facility] CPT-28963 Level 3 Est. Patient 11:01:08 AEROLOGIST Daniele Mcfadden [facility] CPT-64421 Level 3 Est. Patient 10:55:35 CDT Daniele Mcfadden [facility] CPT-18574 Level 3 Est. Patient 14:03:08 CDT Daniele Mcfadden [facility] CPT-78684 Level 3 Est. Patient 11:26:19 CDT Margarito Kelley MD [facility] CPT-54464 Level 2 Est. Patient 15:32:04 AEROLOGIST Daniele Mcfadden [facility] CPT-07999 Level 3 Est. Patient 16:01:26 AEROLOGIST Daniele Mcfadden [facility] CPT-37621 Level 3 Est. Patient 06:37:10 AEROLOGIST Daniele Mcfadden [facility] Procedures Code Procedure Name Date Entry Date Standard Description CPT-49345 Rapid Strep (Grp A) - LAB USE ONLY 13:06:06 CDT CPT-08244 Abd compl w upright 12:34:39 CDT CPT-12904 Immunization Single Admin 11:38:41 CDT CPT-05374 Fluzone Quadrivalent Intramuscular Suspension 0.5 ML 11: 38:41 CDT CPT-OV Office Visit 14:45:12 AEROLOGIST CPT-03849 [employer] inc all organs plus proximal aorta and distal IVC 2012 12:13:02 AEROLOGIST CPT-57349 Abd compl w upright 15:12:58 AEROLOGIST CPT-25620 Venipuncture Draw Fee 14:38:32 AEROLOGIST CPT-84099 Administration single or combination vaccine inc oral 17 :10:04 CDT CPT-55642 Gardasil 17:10:04 CDT CPT-40478 Venipuncture Draw Fee 16:07:54 AEROLOGIST CPT-76017 Administration 2+ single or combination vaccines inc oral 17:22:02 CDT CPT-19579 Administration single or combination vaccine inc oral 17 :22:02 CDT CPT-07840 Influenza split virus > age 3 17:22:02 CDT CPT-52411 Gardasil 17:22:02 CDT CPT-85917 Administration 2+ single or combination vaccines inc oral 14:38:31 CDT CPT-60358 Administration single or combination vaccine inc oral 14 :38:31 CDT CPT-65242 Meningococcal Conjugate Vacine (Menactra) 14:38:31 CDT CPT-51777 Gardasil 14:38:31 CDT
--- OUTSIDE RECORDS SUMMARY | 2018-02-15 06:54 | XMS REPORT | Clinical Summary ---
Author Author Admin, OLE[facility] Organization [employer] Address Unknown Phone Unavailable Allergies, Adverse Reactions, [...] unspecified site Sinusitis 473.9 Active Griselda Horvath CHIEF DRAFTER Unspecified sinusitis (chronic) Eustachian tube dysfunction, right 381.81 Active Margarito Kelley MD Dysfunction of Eustachian tube Pharyngitis-Acute 462 Active Daniele Mcfadden DO Acute pharyngitis URI 465.9 Active Griselda Horvath CHIEF DRAFTER Acute upper respiratory infections of unspecified site Allergic rhinitis 477.9 Active Jessika Nunes CHIEF DRAFTER Allergic rhinitis, cause unspecified Acute rhinosinusitis 461.9 Active Jessika Nunes CHIEF DRAFTER Acute sinusitis, unspecified Fever 780.60 Active Griselda Horvath CHIEF DRAFTER Fever, unspecified ALLERGIC RHINITIS ICD-477.9 Inactive Errol [...] for 2 days start tomorrow 07/31/16 PREDNISONE 26744385077 Active Jillina Frazell CHIEF DRAFTER Active AZITHROMYCIN 250 MG TABS 2 po qd x 1 day, then 1 po qd x 4 days AZITHROMYCIN 43873723741 Active Jillina Frazell CHIEF DRAFTER Active MUCINEX D 60-600 MG [id number] 1 po BID PRN Congestion PSEUDOEPHEDRINE-GUAIFENESIN 79543342922 No Longer Active Jessika Nunes CHIEF DRAFTER Active CEFDINIR 300 MG CAPS 1 po BID x 10 days CEFDINIR 47312528303 No Longer Active Jillina Frazell CHIEF DRAFTER Active PREDNISONE 20 MG TAB 2 tabs daily for 3 days, 1 tab daily for 3 days, 1/2 tab daily for 2 days PREDNISONE 96850435504 No Longer Active Jillina Frazell CHIEF DRAFTER Active FLUTICASONE PROPIONATE 50 MCG/ACT SUSP 1 to 2 sprays each nostril daily 03/20 FLUTICASONE PROPIONATE 17942653803 No Longer Active Jillina Frazell CHIEF DRAFTER Active GUAIFENESIN 600 MG [id number]-[id number] 1 twice a day as needed for congestion GUAIFENESIN 45899600285 No Longer Active Jillina Frazell CHIEF DRAFTER Active CEFDINIR 300 MG CAPS by mouth twice a day CEFDINIR 70941970989 No Longer Active Jillina Frazell CHIEF DRAFTER Active PREDNISONE 20 MG TAB 1 tablet twice daily for 2 days, then 1 tablet once daily for 2 days PREDNISONE 92955066790 No Longer Active Jillina Frazell CHIEF DRAFTER Active PREDNISONE 20 MG TAB 2 tabs daily for 3 days, 1 tab daily for 3 days, 1/2 tab daily for 2 days PREDNISONE 19551576228 No Longer Active Margarito Kelley MD Active IRVING-D ALLERGY & CONGESTION [id number] 1 po bid FEXOFENADINE-PSEUDOEPHEDRINE AR87Q-RUT 30957773139 No Longer Active Margarito Kelley MD Active PREDNISONE 20 MG TAB 2 tabs daily for 3 days, 1 tab daily for 3 days, 1/2 tab daily for 2 days PREDNISONE 21998376261 No Longer Active Jillina Frazell CHIEF DRAFTER Active CEFDINIR 300 MG CAPS 1 cap by mouth twice a day CEFDINIR 69753337984 No Longer Active Jillina Frazell CHIEF DRAFTER Active E-Z SPACER ERIBERTO use with proair inhalier every 4 times as need. SPACER/AERO-HOLDING CHAMBERS 40631643792 No Longer Active Jillina Frazell CHIEF DRAFTER Active PROAIR HFA 108 (90 BASE) MCG/ACT AERS 2 puffs every 4 hours as needed 2014 ALBUTEROL SULFATE 66683888016 No Longer Active Jillina Frazell CHIEF DRAFTER Active CEFTIN 500 MG TAB 1 tablet by mouth twice daily for ten days. CEFUROXIME AXETIL 23425931755 No Longer Active Ezekielllina Frazell CHIEF DRAFTER Active PREDNISONE 20 MG TAB 2 tabs daily for 3 days, 1 tab daily for 3 days, 1/2 tab daily for 2 days PREDNISONE 54826308926 No Longer Active Margarito Kelley MD Active CEPHALEXIN 500 MG CAPS 1 tablet by mouth three times daily for ten days 06/25 CEPHALEXIN 85555790814 No Longer Active Renée Adames APRN Active MEDROL (MARY) 4 MG TABS 6 pills on day 1, 5 pills on day 2, 4 pills on day 3, 4 pills on day 4, 2 pills on day 5, 1 pill on day 6 METHYLPREDNISOLONE 12312974242 No Longer Active Annita Mejia MD PhD Active ZITHROMAX Z-MARY 250 MG TABS 2 today and then 1 daily for 4 days AZITHROMYCIN 66357073650 No Longer Active Annita Mejia MD PhD Active GUAIFENESIN-CODEINE 100-10 MG/5ML SYRP 5ml every 4 to 6 hours as needed for cough GUAIFENESIN-CODEINE 05553168849 No Longer Active Annita Mejia MD PhD Active FLONASE 50 MCG/ACT SUSP 1 spray each nostril am and hs FLUTICASONE PROPIONATE 05131737498 No Longer Active Kendell Coronado MD Active MELOXICAM 15 MG TABS 1 po q day for pain with food MELOXICAM 87773921674 No Longer Active Kendell Coronado MD Active HYDROCODONE-ACETAMINOPHEN 5-325 MG TABS 1-2 q 4-6 hrs prn pain 20 tabs 07/04 HYDROCODONE-ACETAMINOPHEN 83408919075 No Longer Active Daniele Mcfadden DO Active PREDNISONE 20 MG TAB 1 tablet twice daily for 2 days, then 1 tablet once daily for 2 days PREDNISONE 55048920424 No Longer Active Daniele Mcfadden DO Active PREDNISONE 20 MG TAB 1 po bid 2 days, then daily for 2 days 12/27 PREDNISONE 72343793085 No Longer Active Alexander LOPEZ Active AZITHROMYCIN 250 MG TABS 2 po qd x 1 day, then 1 po qd x 4 days AZITHROMYCIN 78053349330 No Longer Active Daniele Mcfadden DO Active MUCINEX MAXIMUM STRENGTH [id number] 1 po qd GUAIFENESIN XR12H- TAB 36588111273 No Longer Active Daniele Mcfadden DO Active AZITHROMYCIN 250 MG TABS 2 po qd x 1 day, then 1 po qd x 4 days AZITHROMYCIN 36271136893 No Longer Active Margarito Kelley MD Active MUCINEX MAXIMUM STRENGTH RW75Q-SBK 1 po qd MUCINEX MAXIMUM STRENGTH MQ18Z-YOT GUAIFENESIN QL61J-VZW Inactive PREDNISONE 20 MG TAB 1 po bid 2 days, then daily for 2 days 12/27 PREDNISONE 20 MG TAB 750530 PREDNISONE Inactive PREDNISONE 20 MG TAB 1 tablet twice daily for 2 days, then 1 tablet once daily for 2 days PREDNISONE 20 MG TAB 511385 PREDNISONE Inactive HYDROCODONE-ACETAMINOPHEN 5-325 MG TABS 1-2 q 4-6 hrs prn pain 20 tabs 07/04 HYDROCODONE-ACETAMINOPHEN 5-325 MG TABS 949220 HYDROCODONE- ACETAMINOPHEN Inactive MELOXICAM 15 MG TABS 1 po q day for pain with food MELOXICAM 15 MG TABS 488818 MELOXICAM Inactive FLONASE 50 MCG/ACT SUSP 1 spray each nostril am and hs FLONASE 50 MCG/ACT SUSP FLUTICASONE PROPIONATE Inactive GUAIFENESIN-CODEINE 100-10 MG/5ML SYRP 5ml every 4 to 6 hours as needed for cough GUAIFENESIN-CODEINE 100-10 MG/5ML SYRP 937382 GUAIFENESIN-CODEINE Inactive ZITHROMAX Z-MARY 250 MG TABS 2 today and then 1 daily for 4 days ZITHROMAX Z-MARY 250 MG TABS 5525315 AZITHROMYCIN Inactive CEFTIN 500 MG TAB 1 tablet by mouth twice daily for ten days. CEFTIN 500 MG TAB 568645 CEFUROXIME AXETIL Inactive PROAIR HFA 108 (90 BASE) MCG/ACT AERS 2 puffs every 4 hours as needed 2014 PROAIR HFA 108 (90 BASE) MCG/ACT AERS ALBUTEROL SULFATE Inactive E-Z SPACER ERIBERTO use with proair inhalier every 4 times as need. E-Z SPACER ERIBERTO SPACER/AERO-HOLDING CHAMBERS Inactive IRVING-D ALLERGY & CONGESTION [id number] 1 po bid IRVING-D ALLERGY & CONGESTION [id number] FEXOFENADINE-PSEUDOEPHEDRINE XR12H- TAB Inactive PREDNISONE 20 MG TAB 1 tablet twice daily for 2 days, then 1 tablet once daily for 2 days PREDNISONE 20 MG TAB 183247 PREDNISONE Inactive GUAIFENESIN 600 MG [id number]-BLN 1 twice a day as needed for congestion GUAIFENESIN 600 MG BX85E-ZEJ GUAIFENESIN Inactive FLUTICASONE PROPIONATE 50 MCG/ACT SUSP 1 to 2 sprays each nostril daily 03/20 FLUTICASONE PROPIONATE 50 MCG/ACT SUSP 1563470 FLUTICASONE PROPIONATE Inactive MUCINEX D 60-600 MG UO31C-KUL 1 po BID PRN Congestion MUCINEX D 60-600 MG PS35A-QSE PSEUDOEPHEDRINE-GUAIFENESIN Inactive AZITHROMYCIN 250 MG TABS 2 po qd x 1 day, then 1 po qd x 4 days AZITHROMYCIN 250 MG TABS 1992967 AZITHROMYCIN Inactive AZITHROMYCIN 250 MG TABS 2 po qd x 1 day, then 1 po qd x 4 days AZITHROMYCIN 250 MG TABS 4800781 AZITHROMYCIN Inactive MEDROL (MARY) 4 MG TABS 6 pills on day 1, 5 pills on day 2, 4 pills on day 3, 4 pills on day 4, 2 pills on day 5, 1 pill on day 6 MEDROL (MARY) 4 MG TABS 417413 METHYLPREDNISOLONE Inactive CEPHALEXIN 500 MG CAPS 1 tablet by mouth three times daily for ten days 06/25 CEPHALEXIN 500 MG CAPS 280705 CEPHALEXIN Inactive PREDNISONE 20 MG TAB 2 tabs daily for 3 days, 1 tab daily for 3 days, 1/2 tab daily for 2 days PREDNISONE 20 MG TAB 869174 PREDNISONE Inactive CEFDINIR 300 MG CAPS 1 cap by mouth twice a day CEFDINIR 300 MG CAPS 136311 CEFDINIR Inactive PREDNISONE 20 MG TAB 2 tabs daily for 3 days, 1 tab daily for 3 days, 1/2 tab daily for 2 days PREDNISONE 20 MG TAB 810678 PREDNISONE Inactive PREDNISONE 20 MG TAB 2 tabs daily for 3 days, 1 tab daily for 3 days, 1/2 tab daily for 2 days PREDNISONE 20 MG TAB 132996 PREDNISONE Inactive CEFDINIR 300 MG CAPS by mouth twice a day CEFDINIR 300 MG CAPS 20021026 CEFDINIR Inactive PREDNISONE 20 MG TAB 2 tabs daily for 3 days, 1 tab daily for 3 days, 1/2 tab daily for 2 days PREDNISONE 20 MG TAB 345107 PREDNISONE Inactive CEFDINIR 300 MG CAPS 1 po BID x 10 days CEFDINIR 300 MG CAPS 20021026 CEFDINIR Inactive Immunizations Vaccine Administration Date Value Standard Description Human Papillomavirus vaccine (Gardasil) #2, (HPV #2) Gardasil [ CVX62] human papilloma virus vaccine, quadrivalent Seasonal influenza vaccine, injectable, containing preservative, for > 3 years old (Afluria, FluLaval, Fluzone, Fluvirin, Fluarix, Agriflu(>=18 yo)) Fluzone (>3 yrs.) [LEC850] Influenza, seasonal, injectable Human Papillomavirus Vaccine (Gardasil) #1 Given (HPV #1) Gardasil [CVX62] human papilloma virus vaccine, quadrivalent hepatitis A immunization #2 Havrix-Pedi hepatitis A vaccine, unspecified formulation Boostrix (Tetanus toxoid, reduced diphtheria toxoid and acellular pertussis vaccine, adsorbed), booster Boostrix [UMT894] tetanus toxoid, reduced diphtheria toxoid, and acellular [...] Negative;Positive Encounters Code Encounter Date Provider Facility CPT-93520 Level 3 Est. Patient 10:49:47 ENVIRONMENTAL RESEARCH PROJECT MANAGER Griselda Horvath [facility] CPT-46622 Level 3 Est. Patient 08:43:59 ENVIRONMENTAL RESEARCH PROJECT MANAGER Jessika Nunes [facility] CPT-09218 Level 3 Est. Patient 09:05:19 ENVIRONMENTAL RESEARCH PROJECT MANAGER Griselda Horvath [facility] CPT-62349 Level 3 Est. Patient 15:45:46 CDT Griselda Horvath [facility] CPT-76022 Level 3 Est. Patient 14:15:52 CDT Daniele Mcfadden DO [facility] CPT-49368 Level 3 Est. Patient 13:57:19 ENVIRONMENTAL RESEARCH PROJECT MANAGER Margarito Kelley MD [facility] CPT-24939 Level 3 Est. Patient 09:16:05 ENVIRONMENTAL RESEARCH PROJECT MANAGER Margarito Kelley MD [facility] CPT-73703 Level 3 Est. Patient 15:37:06 ENVIRONMENTAL RESEARCH PROJECT MANAGER Daniele Mcfadden [facility] CPT-92450 Level 3 Est. Patient 11:56:34 ENVIRONMENTAL RESEARCH PROJECT MANAGER Renée Adames A[facility] CPT-51079 Level 3 Est. Patient 12:19:42 CDT Daniele Mcfadden [facility] CPT-09581 Level 3 Est. Patient 11:08:45 CDT Annita Mejia MD PhD [facility] CPT-87357 Level 3 Est. Patient 12:00:17 CDT Kendell Coronado MD [facility] CPT-25523 Level 3 Est. Patient 12:27:25 CDT Daniele Mcfadden [facility] CPT-63528 Level 3 Est. Patient 18:45:11 ENVIRONMENTAL RESEARCH PROJECT MANAGER Daniele Mcfadden [facility] CPT-11970 Level 3 Est. Patient 10:12:24 ENVIRONMENTAL RESEARCH PROJECT MANAGER Daniele Mcfadden [facility] CPT-66299 Level 3 Est. Patient 14:35:11 ENVIRONMENTAL RESEARCH PROJECT MANAGER Daniele Mcfadden [facility] CPT-53648 Level 3 Est. Patient 14:11:04 CDT Daniele Mcfadden [facility] CPT-11069 Level 3 Est. Patient 10:52:13 CDT Alexander LOPEZ [facility] CPT-17989 Level 3 Est. Patient 11:01:08 ENVIRONMENTAL RESEARCH PROJECT MANAGER Daniele Mcfadden [facility] CPT-85990 Level 3 Est. Patient 10:55:35 CDT Daniele Mcfadden [facility] CPT-02804 Level 3 Est. Patient 14:03:08 CDT Daniele Mcfadden [facility] CPT-22430 Level 3 Est. Patient 11:26:19 CDT Margarito Kelley MD [facility] CPT-25858 Level 2 Est. Patient 15:32:04 ENVIRONMENTAL RESEARCH PROJECT MANAGER Daniele Gaetano Mcfadden [facility] CPT-21418 Level 3 Est. Patient 16:01:26 ENVIRONMENTAL RESEARCH PROJECT MANAGER Daniele Mcfadden [facility] CPT-93833 Level 3 Est. Patient 06:37:10 ENVIRONMENTAL RESEARCH PROJECT MANAGER Daniele Mcfadden [facility] Procedures Code Procedure Name Date Entry Date Standard Description CPT-31380 Throat Culture - LAB USE ONLY 12:15:45 ENVIRONMENTAL RESEARCH PROJECT MANAGER CPT-56631 Shani Flu A/B - LAB USE ONLY 12:15:45 ENVIRONMENTAL RESEARCH PROJECT MANAGER CPT-85201 Rapid Strep (Reflex throat) - LAB USE ONLY 12:15:45 ENVIRONMENTAL RESEARCH PROJECT MANAGER CPT-43486 Rapid Strep (Grp A) - LAB USE ONLY 13:06:06 CDT CPT-55940 Abd compl w upright 12:34:39 CDT CPT-86701 Immunization Single Admin 11:38:41 CDT CPT-75642 Fluzone Quadrivalent Intramuscular Suspension 0.5 ML 11: 38:41 CDT CPT-OV Office Visit 14:45:12 ENVIRONMENTAL RESEARCH PROJECT MANAGER CPT-46800 [employer] all organs plus proximal aorta and distal IVC 2012 12:13:02 ENVIRONMENTAL RESEARCH PROJECT MANAGER CPT-83405 Abd compl w upright 15:12:58 ENVIRONMENTAL RESEARCH PROJECT MANAGER CPT-66445 Venipuncture Draw Fee 14:38:32 ENVIRONMENTAL RESEARCH PROJECT MANAGER CPT-31235 Administration single or combination vaccine inc oral 17 :10:04 CDT CPT-34053 Gardasil 17:10:04 CDT CPT-32742 Venipuncture Draw Fee 16:07:54 ENVIRONMENTAL RESEARCH PROJECT MANAGER CPT-49553 Administration 2+ single or combination vaccines inc oral 17:22:02 CDT CPT-62909 Administration single or combination vaccine inc oral 17 :22:02 CDT CPT-97393 Influenza split virus > age 3 17:22:02 CDT CPT-53895 Gardasil 17:22:02 CDT CPT-31174 Administration 2+ single or combination vaccines inc oral 14:38:31 CDT CPT-35241 Administration single or combination vaccine inc oral 14 :38:31 CDT CPT-18311 Meningococcal Conjugate Vacine (Menactra) 14:38:31 CDT CPT-04058 Gardasil 14:38:31 CDT
--- OUTSIDE RECORDS SUMMARY | 2018-02-15 06:55 | XMS REPORT | Clinical Summary ---
Author Author Admin, Ludmila Organization [employer] Address Unknown Phone Unavailable Allergies, Adverse Reactions, [...] unspecified site Sinusitis 473.9 Active Griselda Horvath PEDAL ASSEMBLER Unspecified sinusitis (chronic) Eustachian tube dysfunction, right 381.81 Active Margarito Kelley MD Dysfunction of Eustachian tube Pharyngitis-Acute 462 Active Daniele Mcfadden DO Acute pharyngitis URI 465.9 Active Griselda Horvath PEDAL ASSEMBLER Acute upper respiratory infections of unspecified site Allergic rhinitis 477.9 Active Jessika Nunes PEDAL ASSEMBLER Allergic rhinitis, cause unspecified Acute rhinosinusitis 461.9 Active Jessika Nunes PEDAL ASSEMBLER Acute sinusitis, unspecified Fever 780.60 Active Griselda Horvath PEDAL ASSEMBLER Fever, unspecified ALLERGIC RHINITIS ICD-477.9 Inactive Errol [...] for 2 days start tomorrow 07/31/16 PREDNISONE [id number] No Longer Active Jillina Frazell PEDAL ASSEMBLER Active AZITHROMYCIN 250 MG TABS 2 po qd x 1 day, then 1 po qd x 4 days AZITHROMYCIN 24426461749 No Longer Active Jillina Frazell PEDAL ASSEMBLER Active MUCINEX D 60-600 MG [id number] 1 po BID PRN Congestion PSEUDOEPHEDRINE-GUAIFENESIN 02020590816 No Longer Active Jessikatanner Nunes PEDAL ASSEMBLER Active CEFDINIR 300 MG CAPS 1 po BID x 10 days CEFDINIR 76269291242 No Longer Active Jillina Frazell PEDAL ASSEMBLER Active PREDNISONE 20 MG TAB 2 tabs daily for 3 days, 1 tab daily for 3 days, 1/2 tab daily for 2 days PREDNISONE 01290505444 No Longer Active Jillina Frazell PEDAL ASSEMBLER Active FLUTICASONE PROPIONATE 50 MCG/ACT SUSP 1 to 2 sprays each nostril daily 03/20 FLUTICASONE PROPIONATE 35722215415 No Longer Active Jillina Frazell PEDAL ASSEMBLER Active GUAIFENESIN 600 MG [id number] 1 twice a day as needed for congestion GUAIFENESIN 19756642514 No Longer Active Jillina Frazell PEDAL ASSEMBLER Active CEFDINIR 300 MG CAPS by mouth twice a day CEFDINIR 03078885633 No Longer Active Jillina Frazell PEDAL ASSEMBLER Active PREDNISONE 20 MG TAB 1 tablet twice daily for 2 days, then 1 tablet once daily for 2 days PREDNISONE 20327836237 No Longer Active Jillina Frazell PEDAL ASSEMBLER Active PREDNISONE 20 MG TAB 2 tabs daily for 3 days, 1 tab daily for 3 days, 1/2 tab daily for 2 days PREDNISONE 44950540277 No Longer Active Margarito Kelley MD Active IRVING-D ALLERGY & CONGESTION [id number] 1 po bid FEXOFENADINE-PSEUDOEPHEDRINE [id number] 66465366629 No Longer Active Margarito Kelley MD Active PREDNISONE 20 MG TAB 2 tabs daily for 3 days, 1 tab daily for 3 days, 1/2 tab daily for 2 days PREDNISONE 87406513138 No Longer Active Jillina Frazell PEDAL ASSEMBLER Active CEFDINIR 300 MG CAPS 1 cap by mouth twice a day CEFDINIR 62667768434 No Longer Active Jillina Frazell PEDAL ASSEMBLER Active E-Z SPACER ERIBERTO use with proair inhalier every 4 times as need. SPACER/AERO-HOLDING CHAMBERS 44369626499 No Longer Active Jillina Frazell PEDAL ASSEMBLER Active PROAIR HFA 108 (90 BASE) MCG/ACT AERS 2 puffs every 4 hours as needed 2014 ALBUTEROL SULFATE 25490870405 No Longer Active Jillina Frazell PEDAL ASSEMBLER Active CEFTIN 500 MG TAB 1 tablet by mouth twice daily for ten days. CEFUROXIME AXETIL 18350436871 No Longer Active Jillina Frazell PEDAL ASSEMBLER Active PREDNISONE 20 MG TAB 2 tabs daily for 3 days, 1 tab daily for 3 days, 1/2 tab daily for 2 days PREDNISONE 76024486260 No Longer Active Margarito Kelley MD Active CEPHALEXIN 500 MG CAPS 1 tablet by mouth three times daily for ten days 06/25 CEPHALEXIN 98062384495 No Longer Active Renée Adames APRN Active MEDROL (MARY) 4 MG TABS 6 pills on day 1, 5 pills on day 2, 4 pills on day 3, 4 pills on day 4, 2 pills on day 5, 1 pill on day 6 METHYLPREDNISOLONE 32228647630 No Longer Active Annita Mejia MD PhD Active ZITHROMAX Z-MARY 250 MG TABS 2 today and then 1 daily for 4 days AZITHROMYCIN 16416658506 No Longer Active Annita Mejia MD PhD Active GUAIFENESIN-CODEINE 100-10 MG/5ML SYRP 5ml every 4 to 6 hours as needed for cough GUAIFENESIN-CODEINE 18733358121 No Longer Active Annita Mejia MD PhD Active FLONASE 50 MCG/ACT SUSP 1 spray each nostril am and hs FLUTICASONE PROPIONATE 76366890168 No Longer Active Kendell Coronado MD Active MELOXICAM 15 MG TABS 1 po q day for pain with food MELOXICAM 82905553992 No Longer Active Kendell Coronado MD Active HYDROCODONE-ACETAMINOPHEN 5-325 MG TABS 1-2 q 4-6 hrs prn pain 20 tabs 07/04 HYDROCODONE-ACETAMINOPHEN 75597954300 No Longer Active Daniele Mcfadden DO Active PREDNISONE 20 MG TAB 1 tablet twice daily for 2 days, then 1 tablet once daily for 2 days PREDNISONE 66401247104 No Longer Active Daniele Mcfadden DO Active PREDNISONE 20 MG TAB 1 po bid 2 days, then daily for 2 days 12/27 PREDNISONE 55630757764 No Longer Active Alexander LOPEZ Active AZITHROMYCIN 250 MG TABS 2 po qd x 1 day, then 1 po qd x 4 days AZITHROMYCIN 76114762136 No Longer Active Daniele Mcfadden DO Active MUCINEX MAXIMUM STRENGTH [id number] 1 po qd GUAIFENESIN XR12H- TAB 96811908280 No Longer Active Daniele Mcfadden DO Active AZITHROMYCIN 250 MG TABS 2 po qd x 1 day, then 1 po qd x 4 days AZITHROMYCIN 66229475013 No Longer Active Margarito Kelley MD Active MUCINEX MAXIMUM STRENGTH [id number]-[id number] 1 po qd MUCINEX MAXIMUM STRENGTH [id number] GUAIFENESIN AM85Q-HEX Inactive PREDNISONE 20 MG TAB 1 po bid 2 days, then daily for 2 days 12/27 PREDNISONE 20 MG TAB 087472 PREDNISONE Inactive PREDNISONE 20 MG TAB 1 tablet twice daily for 2 days, then 1 tablet once daily for 2 days PREDNISONE 20 MG TAB 552359 PREDNISONE Inactive HYDROCODONE-ACETAMINOPHEN 5-325 MG TABS 1-2 q 4-6 hrs prn pain 20 tabs 07/04 HYDROCODONE-ACETAMINOPHEN 5-325 MG TABS 725003 HYDROCODONE- ACETAMINOPHEN Inactive MELOXICAM 15 MG TABS 1 po q day for pain with food MELOXICAM 15 MG TABS 406633 MELOXICAM Inactive FLONASE 50 MCG/ACT SUSP 1 spray each nostril am and hs FLONASE 50 MCG/ACT SUSP FLUTICASONE PROPIONATE Inactive GUAIFENESIN-CODEINE 100-10 MG/5ML SYRP 5ml every 4 to 6 hours as needed for cough GUAIFENESIN-CODEINE 100-10 MG/5ML SYRP 406140 GUAIFENESIN-CODEINE Inactive ZITHROMAX Z-MARY 250 MG TABS 2 today and then 1 daily for 4 days ZITHROMAX Z-MARY 250 MG TABS 8351023 AZITHROMYCIN Inactive CEFTIN 500 MG TAB 1 tablet by mouth twice daily for ten days. CEFTIN 500 MG TAB 618235 CEFUROXIME AXETIL Inactive PROAIR HFA 108 (90 BASE) MCG/ACT AERS 2 puffs every 4 hours as needed 2014 PROAIR HFA 108 (90 BASE) MCG/ACT AERS ALBUTEROL SULFATE Inactive E-Z SPACER ERIBERTO use with proair inhalier every 4 times as need. E-Z SPACER ERIBERTO SPACER/AERO-HOLDING CHAMBERS Inactive IRVING-D ALLERGY & CONGESTION [id number] 1 po bid IRVING-D ALLERGY & CONGESTION [id number] FEXOFENADINE-PSEUDOEPHEDRINE XR12H- TAB Inactive PREDNISONE 20 MG TAB 1 tablet twice daily for 2 days, then 1 tablet once daily for 2 days PREDNISONE 20 MG TAB 131355 PREDNISONE Inactive GUAIFENESIN 600 MG [id number] 1 twice a day as needed for congestion GUAIFENESIN 600 MG WD03N-HXL GUAIFENESIN Inactive FLUTICASONE PROPIONATE 50 MCG/ACT SUSP 1 to 2 sprays each nostril daily 03/20 FLUTICASONE PROPIONATE 50 MCG/ACT SUSP 6407090 FLUTICASONE PROPIONATE Inactive MUCINEX D 60-600 MG [id number] 1 po BID PRN Congestion MUCINEX D 60-600 MG GC31B-MBY PSEUDOEPHEDRINE-GUAIFENESIN Inactive AZITHROMYCIN 250 MG TABS 2 po qd x 1 day, then 1 po qd x 4 days AZITHROMYCIN 250 MG TABS 7715162 AZITHROMYCIN Inactive AZITHROMYCIN 250 MG TABS 2 po qd x 1 day, then 1 po qd x 4 days AZITHROMYCIN 250 MG TABS 1046355 AZITHROMYCIN Inactive MEDROL (MARY) 4 MG TABS 6 pills on day 1, 5 pills on day 2, 4 pills on day 3, 4 pills on day 4, 2 pills on day 5, 1 pill on day 6 MEDROL (MARY) 4 MG TABS 154645 METHYLPREDNISOLONE Inactive CEPHALEXIN 500 MG CAPS 1 tablet by mouth three times daily for ten days 06/25 CEPHALEXIN 500 MG CAPS 836264 CEPHALEXIN Inactive PREDNISONE 20 MG TAB 2 tabs daily for 3 days, 1 tab daily for 3 days, 1/2 tab daily for 2 days PREDNISONE 20 MG TAB 317712 PREDNISONE Inactive CEFDINIR 300 MG CAPS 1 cap by mouth twice a day CEFDINIR 300 MG CAPS 577692 CEFDINIR Inactive PREDNISONE 20 MG TAB 2 tabs daily for 3 days, 1 tab daily for 3 days, 1/2 tab daily for 2 days PREDNISONE 20 MG TAB 134652 PREDNISONE Inactive PREDNISONE 20 MG TAB 2 tabs daily for 3 days, 1 tab daily for 3 days, 1/2 tab daily for 2 days PREDNISONE 20 MG TAB 515968 PREDNISONE Inactive CEFDINIR 300 MG CAPS by mouth twice a day CEFDINIR 300 MG CAPS 20021026 CEFDINIR Inactive PREDNISONE 20 MG TAB 2 tabs daily for 3 days, 1 tab daily for 3 days, 1/2 tab daily for 2 days PREDNISONE 20 MG TAB 245652 PREDNISONE Inactive CEFDINIR 300 MG CAPS 1 po BID x 10 days CEFDINIR 300 MG CAPS 20021026 CEFDINIR Inactive AZITHROMYCIN 250 MG TABS 2 po qd x 1 day, then 1 po qd x 4 days AZITHROMYCIN 250 MG TABS 6053142 AZITHROMYCIN Inactive PREDNISONE 20 MG TAB 2 tabs daily for 3 days, 1 tab daily for 3 days, 1/2 tab daily for 2 days start tomorrow 07/31/16 PREDNISONE 20 MG TAB 051320 PREDNISONE Inactive Immunizations Vaccine Administration Date Value Standard Description Human Papillomavirus vaccine (Gardasil) #2, (HPV #2) Gardasil [ CVX62] human papilloma virus vaccine, quadrivalent Seasonal influenza vaccine, injectable, containing preservative, for > 3 years old (Afluria, FluLaval, Fluzone, Fluvirin, Fluarix, Agriflu(>=18 yo)) Fluzone (>3 yrs.) [[id number]] Influenza, seasonal, injectable Human Papillomavirus Vaccine (Gardasil) #1 Given (HPV #1) Gardasil [CVX62] human papilloma virus vaccine, quadrivalent hepatitis A immunization #2 Havrix-Pedi hepatitis A vaccine, unspecified formulation Boostrix (Tetanus toxoid, reduced diphtheria toxoid and acellular pertussis vaccine, adsorbed), booster Boostrix [FWN529] tetanus toxoid, reduced diphtheria toxoid, and acellular [...] Negative-Throat Culture to Follow Negative Lab Report: HSANI INFLUENZA A/B, RapidStrep Rflx/Cx - Toxicology rapid flu test Negative Negative;Positive Encounters Code Encounter Date Provider Facility CPT-23551 Level 3 Est. Patient 10:49:47 TECHNICAL SALES SUPPORT MANAGER Griselda Horvath [facility] CPT-33095 Level 3 Est. Patient 08:43:59 TECHNICAL SALES SUPPORT MANAGER Jessika Des [facility] CPT-84464 Level 3 Est. Patient 09:05:19 TECHNICAL SALES SUPPORT MANAGER Griselda Horvath [facility]-99841 Level 3 Est. Patient 15:45:46 CDT Griselda Horvath [facility] CPT-92288 Level 3 Est. Patient 14:15:52 CDT Daniele Mcfadden [facility]-34106 Level 3 Est. Patient 13:57:19 TECHNICAL SALES SUPPORT MANAGER Margarito Kelley MD [facility]-32563 Level 3 Est. Patient 09:16:05 TECHNICAL SALES SUPPORT MANAGER Margarito Kelley MD [facility] CPT-85781 Level 3 Est. Patient 15:37:06 TECHNICAL SALES SUPPORT MANAGER Daniele Mcfadden [facility] CPT-53548 Level 3 Est. Patient 11:56:34 TECHNICAL SALES SUPPORT MANAGER Renée Adames [facility] CPT-00675 Level 3 Est. Patient 12:19:42 CDT Daniele Mcfadden [facility] CPT-52878 Level 3 Est. Patient 11:08:45 CDT Annita Mejia MD PhD [facility] CPT-85730 Level 3 Est. Patient 12:00:17 CDT Kendell Coronado MD [facility] CPT-08312 Level 3 Est. Patient 12:27:25 CDT Daniele Mcfadden [facility]-86985 Level 3 Est. Patient 18:45:11 TECHNICAL SALES SUPPORT MANAGER Daniele Mcfadden [facility] CPT-88990 Level 3 Est. Patient 10:12:24 TECHNICAL SALES SUPPORT MANAGER Daniele Mcfadden [facility] CPT-21533 Level 3 Est. Patient 14:35:11 TECHNICAL SALES SUPPORT MANAGER Daniele Mcfadden [facility] CPT-96717 Level 3 Est. Patient 14:11:04 CDT Daniele Mcfadden [facility] CPT-82899 Level 3 Est. Patient 10:52:13 CDT Alexander LOPEZ [facility] CPT-70465 Level 3 Est. Patient 11:01:08 TECHNICAL SALES SUPPORT MANAGER Daniele Mcfadden [facility] CPT-61346 Level 3 Est. Patient 10:55:35 CDT Daniele Mcfadden [facility] CPT-79088 Level 3 Est. Patient 14:03:08 CDT Daniele Mcfadden [facility] CPT-75768 Level 3 Est. Patient 11:26:19 CDT Margarito Kelley MD [facility] CPT-43980 Level 2 Est. Patient 15:32:04 TECHNICAL SALES SUPPORT MANAGER Daniele Mcfadden [facility] CPT-65051 Level 3 Est. Patient 16:01:26 TECHNICAL SALES SUPPORT MANAGER Daniele Mcfadden [facility] CPT-87603 Level 3 Est. Patient 06:37:10 TECHNICAL SALES SUPPORT MANAGER Daniele Mcfadden [facility] Procedures Code Procedure Name Date Entry Date Standard Description CPT-20315 Throat Culture - LAB USE ONLY 12:15:45 TECHNICAL SALES SUPPORT MANAGER CPT-50096 Shani Flu A/B - LAB USE ONLY 12:15:45 TECHNICAL SALES SUPPORT MANAGER CPT-16840 Rapid Strep (Reflex throat) - LAB USE ONLY 12:15:45 TECHNICAL SALES SUPPORT MANAGER CPT-76543 Rapid Strep (Grp A) - LAB USE ONLY 13:06:06 CDT CPT-38984 Abd compl w upright 12:34:39 CDT CPT-19276 Immunization Single Admin 11:38:41 CDT CPT-28665 Fluzone Quadrivalent Intramuscular Suspension 0.5 ML 11: 38:41 CDT CPT-OV Office Visit 14:45:12 TECHNICAL SALES SUPPORT MANAGER CPT-74561 [employer] all organs plus proximal aorta and distal IVC 2012 12:13:02 TECHNICAL SALES SUPPORT MANAGER CPT-00335 Abd compl w upright 15:12:58 TECHNICAL SALES SUPPORT MANAGER CPT-56582 Venipuncture Draw Fee 14:38:32 TECHNICAL SALES SUPPORT MANAGER CPT-79789 Administration single or combination vaccine inc oral 17 :10:04 CDT CPT-57485 Gardasil 17:10:04 CDT CPT-14766 Venipuncture Draw Fee 16:07:54 TECHNICAL SALES SUPPORT MANAGER CPT-51794 Administration 2+ single or combination vaccines inc oral 17:22:02 CDT CPT-86499 Administration single or combination vaccine inc oral 17 :22:02 CDT CPT-20383 Influenza split virus > age 3 17:22:02 CDT CPT-68905 Gardasil 17:22:02 CDT CPT-86404 Administration 2+ single or combination vaccines inc oral 14:38:31 CDT CPT-10470 Administration single or combination vaccine inc oral 14 :38:31 CDT CPT-46712 Meningococcal Conjugate Vacine (Menactra) 14:38:31 CDT CPT-80266 Gardasil 14:38:31 CDT
--- OUTSIDE RECORDS SUMMARY | 2018-02-15 06:55 | XMS REPORT | Clinical Summary ---
Author Author Admin, OLEG Organization [employer] Address Unknown Phone Unavailable Allergies, Adverse Reactions, [...] unspecified site Sinusitis 473.9 Active Griselda Horvath PRIME MINISTER Unspecified sinusitis (chronic) Eustachian tube dysfunction, right 381.81 Active Margarito Kelley MD Dysfunction of Eustachian tube Pharyngitis-Acute 462 Active Daniele Mcfadden DO Acute pharyngitis URI 465.9 Active Griselda Horvath PRIME MINISTER Acute upper respiratory infections of unspecified site Allergic rhinitis 477.9 Active Jessika Nunes PRIME MINISTER Allergic rhinitis, cause unspecified Acute rhinosinusitis 461.9 Active Jessika Nunes PRIME MINISTER Acute sinusitis, unspecified Fever 780.60 Active Griselda Horvath PRIME MINISTER Fever, unspecified ALLERGIC RHINITIS ICD-477.9 Inactive Errol [...] for 2 days start tomorrow 07/31/16 PREDNISONE 95598243479 Active Jillina Frazell PRIME MINISTER Active AZITHROMYCIN 250 MG TABS 2 po qd x 1 day, then 1 po qd x 4 days AZITHROMYCIN 49000045716 Active Jillina Frazell PRIME MINISTER Active MUCINEX D 60-600 MG EI19O-PUE 1 po BID PRN Congestion PSEUDOEPHEDRINE-GUAIFENESIN 86237236851 No Longer Active Jessika Nunes PRIME MINISTER Active CEFDINIR 300 MG CAPS 1 po BID x 10 days CEFDINIR 83957492920 No Longer Active Jillina Frazell PRIME MINISTER Active PREDNISONE 20 MG TAB 2 tabs daily for 3 days, 1 tab daily for 3 days, 1/2 tab daily for 2 days PREDNISONE 38857973846 No Longer Active Jillina Frazell PRIME MINISTER Active FLUTICASONE PROPIONATE 50 MCG/ACT SUSP 1 to 2 sprays each nostril daily 03/20 FLUTICASONE PROPIONATE 26353744382 No Longer Active Jillina Frazell PRIME MINISTER Active GUAIFENESIN 600 MG [id number]-PNX 1 twice a day as needed for congestion GUAIFENESIN 32181773213 No Longer Active Jillina Frazell PRIME MINISTER Active CEFDINIR 300 MG CAPS by mouth twice a day CEFDINIR 09869828051 No Longer Active Jillina Frazell PRIME MINISTER Active PREDNISONE 20 MG TAB 1 tablet twice daily for 2 days, then 1 tablet once daily for 2 days PREDNISONE 59012341027 No Longer Active Jillina Frazell PRIME MINISTER Active PREDNISONE 20 MG TAB 2 tabs daily for 3 days, 1 tab daily for 3 days, 1/2 tab daily for 2 days PREDNISONE 67742041302 No Longer Active Margarito Kelley MD Active IRVING-D ALLERGY & CONGESTION OI29V-VKX 1 po bid FEXOFENADINE-PSEUDOEPHEDRINE QI88B-PQQ 96907130887 No Longer Active Margarito Kelley MD Active PREDNISONE 20 MG TAB 2 tabs daily for 3 days, 1 tab daily for 3 days, 1/2 tab daily for 2 days PREDNISONE 65415098406 No Longer Active Jillina Frazell PRIME MINISTER Active CEFDINIR 300 MG CAPS 1 cap by mouth twice a day CEFDINIR 36135466826 No Longer Active Jillina Frazell PRIME MINISTER Active E-Z SPACER ERIBERTO use with proair inhalier every 4 times as need. SPACER/AERO-HOLDING CHAMBERS 63120645834 No Longer Active Jillina Frazell PRIME MINISTER Active PROAIR HFA 108 (90 BASE) MCG/ACT AERS 2 puffs every 4 hours as needed 2014 ALBUTEROL SULFATE 66136899458 No Longer Active Jillina Frazell PRIME MINISTER Active CEFTIN 500 MG TAB 1 tablet by mouth twice daily for ten days. CEFUROXIME AXETIL 98168304435 No Longer Active Ezekielllina Frazell PRIME MINISTER Active PREDNISONE 20 MG TAB 2 tabs daily for 3 days, 1 tab daily for 3 days, 1/2 tab daily for 2 days PREDNISONE 51520157564 No Longer Active Margarito Kelley MD Active CEPHALEXIN 500 MG CAPS 1 tablet by mouth three times daily for ten days 06/25 CEPHALEXIN 12865476266 No Longer Active Renée Adames APRN Active MEDROL (MARY) 4 MG TABS 6 pills on day 1, 5 pills on day 2, 4 pills on day 3, 4 pills on day 4, 2 pills on day 5, 1 pill on day 6 METHYLPREDNISOLONE 48507700402 No Longer Active Annita Mejia MD PhD Active ZITHROMAX Z-MARY 250 MG TABS 2 today and then 1 daily for 4 days AZITHROMYCIN 40005017525 No Longer Active Annita Mejia MD PhD Active GUAIFENESIN-CODEINE 100-10 MG/5ML SYRP 5ml every 4 to 6 hours as needed for cough GUAIFENESIN-CODEINE 17113192331 No Longer Active Annita Mejia MD PhD Active FLONASE 50 MCG/ACT SUSP 1 spray each nostril am and hs FLUTICASONE PROPIONATE 27703880404 No Longer Active Kendell Coronado MD Active MELOXICAM 15 MG TABS 1 po q day for pain with food MELOXICAM 91056051834 No Longer Active Kendell Coronado MD Active HYDROCODONE-ACETAMINOPHEN 5-325 MG TABS 1-2 q 4-6 hrs prn pain 20 tabs 07/04 HYDROCODONE-ACETAMINOPHEN 84479933478 No Longer Active Daniele Mcfadden DO Active PREDNISONE 20 MG TAB 1 tablet twice daily for 2 days, then 1 tablet once daily for 2 days PREDNISONE 19870185980 No Longer Active Daniele Mcfadden DO Active PREDNISONE 20 MG TAB 1 po bid 2 days, then daily for 2 days 12/27 PREDNISONE 75155399383 No Longer Active Alexander LOPEZ Active AZITHROMYCIN 250 MG TABS 2 po qd x 1 day, then 1 po qd x 4 days AZITHROMYCIN 62229527080 No Longer Active Daniele Mcfadden DO Active MUCINEX MAXIMUM STRENGTH MW49A-SKH 1 po qd GUAIFENESIN XR12H- TAB 89816900283 No Longer Active Daniele Mcfadden DO Active AZITHROMYCIN 250 MG TABS 2 po qd x 1 day, then 1 po qd x 4 days AZITHROMYCIN 16456421713 No Longer Active Margarito Kelley MD Active MUCINEX MAXIMUM STRENGTH AH70G-OTH 1 po qd MUCINEX MAXIMUM STRENGTH VE65B-KLB GUAIFENESIN FF28C-JRQ Inactive PREDNISONE 20 MG TAB 1 po bid 2 days, then daily for 2 days 12/27 PREDNISONE 20 MG TAB 143525 PREDNISONE Inactive PREDNISONE 20 MG TAB 1 tablet twice daily for 2 days, then 1 tablet once daily for 2 days PREDNISONE 20 MG TAB 551705 PREDNISONE Inactive HYDROCODONE-ACETAMINOPHEN 5-325 MG TABS 1-2 q 4-6 hrs prn pain 20 tabs 07/04 HYDROCODONE-ACETAMINOPHEN 5-325 MG TABS 933125 HYDROCODONE- ACETAMINOPHEN Inactive MELOXICAM 15 MG TABS 1 po q day for pain with food MELOXICAM 15 MG TABS 885054 MELOXICAM Inactive FLONASE 50 MCG/ACT SUSP 1 spray each nostril am and hs FLONASE 50 MCG/ACT SUSP FLUTICASONE PROPIONATE Inactive GUAIFENESIN-CODEINE 100-10 MG/5ML SYRP 5ml every 4 to 6 hours as needed for cough GUAIFENESIN-CODEINE 100-10 MG/5ML SYRP 959879 GUAIFENESIN-CODEINE Inactive ZITHROMAX Z-MARY 250 MG TABS 2 today and then 1 daily for 4 days ZITHROMAX Z-MARY 250 MG TABS 4465772 AZITHROMYCIN Inactive CEFTIN 500 MG TAB 1 tablet by mouth twice daily for ten days. CEFTIN 500 MG TAB 798416 CEFUROXIME AXETIL Inactive PROAIR HFA 108 (90 BASE) MCG/ACT AERS 2 puffs every 4 hours as needed 2014 PROAIR HFA 108 (90 BASE) MCG/ACT AERS ALBUTEROL SULFATE Inactive E-Z SPACER ERIBERTO use with proair inhalier every 4 times as need. E-Z SPACER ERIBERTO SPACER/AERO-HOLDING CHAMBERS Inactive IRVING-D ALLERGY & CONGESTION YJ50V-HAS 1 po bid IRVING-D ALLERGY & CONGESTION [id number] FEXOFENADINE-PSEUDOEPHEDRINE XR12H- TAB Inactive PREDNISONE 20 MG TAB 1 tablet twice daily for 2 days, then 1 tablet once daily for 2 days PREDNISONE 20 MG TAB 985096 PREDNISONE Inactive GUAIFENESIN 600 MG ZW65F-FCS 1 twice a day as needed for congestion GUAIFENESIN 600 MG UD98Q-FBW GUAIFENESIN Inactive FLUTICASONE PROPIONATE 50 MCG/ACT SUSP 1 to 2 sprays each nostril daily 03/20 FLUTICASONE PROPIONATE 50 MCG/ACT SUSP 5339663 FLUTICASONE PROPIONATE Inactive MUCINEX D 60-600 MG NP88I-KID 1 po BID PRN Congestion MUCINEX D 60-600 MG EU50T-MGW PSEUDOEPHEDRINE-GUAIFENESIN Inactive AZITHROMYCIN 250 MG TABS 2 po qd x 1 day, then 1 po qd x 4 days AZITHROMYCIN 250 MG TABS 9121689 AZITHROMYCIN Inactive AZITHROMYCIN 250 MG TABS 2 po qd x 1 day, then 1 po qd x 4 days AZITHROMYCIN 250 MG TABS 2527746 AZITHROMYCIN Inactive MEDROL (MARY) 4 MG TABS 6 pills on day 1, 5 pills on day 2, 4 pills on day 3, 4 pills on day 4, 2 pills on day 5, 1 pill on day 6 MEDROL (MARY) 4 MG TABS 972221 METHYLPREDNISOLONE Inactive CEPHALEXIN 500 MG CAPS 1 tablet by mouth three times daily for ten days 06/25 CEPHALEXIN 500 MG CAPS 704604 CEPHALEXIN Inactive PREDNISONE 20 MG TAB 2 tabs daily for 3 days, 1 tab daily for 3 days, 1/2 tab daily for 2 days PREDNISONE 20 MG TAB 546278 PREDNISONE Inactive CEFDINIR 300 MG CAPS 1 cap by mouth twice a day CEFDINIR 300 MG CAPS 591653 CEFDINIR Inactive PREDNISONE 20 MG TAB 2 tabs daily for 3 days, 1 tab daily for 3 days, 1/2 tab daily for 2 days PREDNISONE 20 MG TAB 158562 PREDNISONE Inactive PREDNISONE 20 MG TAB 2 tabs daily for 3 days, 1 tab daily for 3 days, 1/2 tab daily for 2 days PREDNISONE 20 MG TAB 199536 PREDNISONE Inactive CEFDINIR 300 MG CAPS by mouth twice a day CEFDINIR 300 MG CAPS 20021026 CEFDINIR Inactive PREDNISONE 20 MG TAB 2 tabs daily for 3 days, 1 tab daily for 3 days, 1/2 tab daily for 2 days PREDNISONE 20 MG TAB 336474 PREDNISONE Inactive CEFDINIR 300 MG CAPS 1 po BID x 10 days CEFDINIR 300 MG CAPS 20021026 CEFDINIR Inactive Immunizations Vaccine Administration Date Value Standard Description Human Papillomavirus vaccine (Gardasil) #2, (HPV #2) Gardasil [ CVX62] human papilloma virus vaccine, quadrivalent Seasonal influenza vaccine, injectable, containing preservative, for > 3 years old (Afluria, FluLaval, Fluzone, Fluvirin, Fluarix, Agriflu(>=18 yo)) Fluzone (>3 yrs.) [KYK159] Influenza, seasonal, injectable Human Papillomavirus Vaccine (Gardasil) #1 Given (HPV #1) Gardasil [CVX62] human papilloma virus vaccine, quadrivalent hepatitis A immunization #2 Havrix-Pedi hepatitis A vaccine, unspecified formulation Boostrix (Tetanus toxoid, reduced diphtheria toxoid and acellular pertussis vaccine, adsorbed), booster Boostrix [[id number]] tetanus toxoid, reduced diphtheria toxoid, and acellular [...] Negative;Positive Encounters Code Encounter Date Provider Facility CPT-63693 Level 3 Est. Patient 10:49:47 BULK INTAKE WORKER Griselda Horvath [facility] CPT-37000 Level 3 Est. Patient 08:43:59 BULK INTAKE WORKER Jessika Nunes [facility] CPT-55800 Level 3 Est. Patient 09:05:19 BULK INTAKE WORKER Griselda Horvath [facility] CPT-71182 Level 3 Est. Patient 15:45:[address] [facility] CPT-91579 Level 3 Est. Patient 14:15:52 CDT Daniele Mcfadden [facility] CPT-58676 Level 3 Est. Patient 13:57:19 BULK INTAKE WORKER Margarito Kelley MD [facility] CPT-29541 Level 3 Est. Patient 09:16:05 BULK INTAKE WORKER Margarito Kelley MD [facility] CPT-36101 Level 3 Est. Patient 15:37:06 BULK INTAKE WORKER Daniele Mcfadden DO [facility] CPT-03688 Level 3 Est. Patient 11:56:34 BULK INTAKE WORKER Renée Adames [facility] CPT-00686 Level 3 Est. Patient 12:19:42 CDT Daniele Mcfadden [facility] CPT-23756 Level 3 Est. Patient 11:08:45 CDT Annita Mejia MD PhD [facility] CPT-97090 Level 3 Est. Patient 12:00:17 CDT Kendell Coronado MD [facility] CPT-43879 Level 3 Est. Patient 12:27:25 CDT Daniele Mcfadden [facility] CPT-76139 Level 3 Est. Patient 18:45:11 BULK INTAKE WORKER Daniele Mcfadden [facility] CPT-00833 Level 3 Est. Patient 10:12:24 BULK INTAKE WORKER Daniele Mcfadden [facility] CPT-30654 Level 3 Est. Patient 14:35:11 BULK INTAKE WORKER Daniele Mcfadden [facility] CPT-26222 Level 3 Est. Patient 14:11:04 CDT Daniele Mcfadden [facility] CPT-16463 Level 3 Est. Patient 10:52:13 CDT Alexander LOPEZ [facility] CPT-29233 Level 3 Est. Patient 11:01:08 BULK INTAKE WORKER Daniele Mcfadden DO [facility] CPT-36186 Level 3 Est. Patient 10:55:35 CDT Daniele Mcfadden [facility] CPT-05783 Level 3 Est. Patient 14:03:08 CDT Daniele Mcfadden [facility] CPT-82538 Level 3 Est. Patient 11:26:19 CDT Margarito Kelley MD [facility] CPT-25595 Level 2 Est. Patient 15:32:04 BULK INTAKE WORKER Daniele Mcfadden [facility] CPT-66984 Level 3 Est. Patient 16:01:26 BULK INTAKE WORKER Daniele Mcfadden [facility] CPT-38081 Level 3 Est. Patient 06:37:10 BULK INTAKE WORKER Daniele Mcfadden [facility] Procedures Code Procedure Name Date Entry Date Standard Description CPT-19679 Throat Culture - LAB USE ONLY 12:15:45 BULK INTAKE WORKER CPT-11012 Misa Flu A/B - LAB USE ONLY 12:15:45 BULK INTAKE WORKER CPT-09588 Rapid Strep (Reflex throat) - LAB USE ONLY 12:15:45 BULK INTAKE WORKER CPT-65381 Rapid Strep (Grp A) - LAB USE ONLY 13:06:06 CDT CPT-12271 Abd compl w upright 12:34:39 CDT CPT-12402 Immunization Single Admin 11:38:41 CDT CPT-95164 Fluzone Quadrivalent Intramuscular Suspension 0.5 ML 11: 38:41 CDT CPT-OV Office Visit 14:45:12 BULK INTAKE WORKER CPT-71581 [employer] all organs plus proximal aorta and distal IVC 2012 12:13:02 BULK INTAKE WORKER CPT-76132 Abd compl w upright 15:12:58 BULK INTAKE WORKER CPT-42811 Venipuncture Draw Fee 14:38:32 BULK INTAKE WORKER CPT-50335 Administration single or combination vaccine inc oral 17 :10:04 CDT CPT-97654 Gardasil 17:10:04 CDT CPT-36074 Venipuncture Draw Fee 16:07:54 BULK INTAKE WORKER CPT-12086 Administration 2+ single or combination vaccines inc oral 17:22:02 CDT CPT-05995 Administration single or combination vaccine inc oral 17 :22:02 CDT CPT-87503 Influenza split virus > age 3 17:22:02 CDT CPT-50809 Gardasil 17:22:02 CDT CPT-34708 Administration 2+ single or combination vaccines inc oral 14:38:31 CDT CPT-79460 Administration single or combination vaccine inc oral 14 :38:31 CDT CPT-53252 Meningococcal Conjugate Vacine (Menactra) 14:38:31 CDT CPT-64088 Gardasil 14:38:31 CDT
--- OUTSIDE RECORDS SUMMARY | 2018-02-15 06:56 | XMS REPORT | Clinical Summary ---
Author Author Admin, OLEG Organization [facility] Address Unknown Phone Unavailable Allergies, Adverse [...] unspecified site Sinusitis 473.9 Active Griselda Horvath OFFICE MACHINE INSTALLER Unspecified sinusitis (chronic) Eustachian tube dysfunction, right [...] 1/2 tab daily for 2 days PREDNISONE 51243000246 No Longer Active Margarito Kelley MD Active IRVING-D ALLERGY & CONGESTION YW26H-SHN 1 po bid FEXOFENADINE-PSEUDOEPHEDRINE KN70U-YHL 04538958177 No Longer Active Margarito Kelley MD Active PREDNISONE 20 MG TAB 2 tabs daily for 3 days, 1 tab daily for 3 days, 1/2 tab daily for 2 days PREDNISONE 21516971828 No Longer Active Jillina Frazell OFFICE MACHINE INSTALLER Active CEFDINIR 300 MG CAPS 1 cap by mouth twice a day CEFDINIR 21982439357 No Longer Active Jillina Frazell OFFICE MACHINE INSTALLER Active E-Z SPACER ERIBERTO use with proair inhalier every 4 times as need. SPACER/AERO-HOLDING CHAMBERS 67108055118 No Longer Active Jillina Frazell OFFICE MACHINE INSTALLER Active PROAIR HFA 108 (90 BASE) MCG/ACT AERS 2 puffs every 4 hours as needed 2014 ALBUTEROL SULFATE 94800806365 No Longer Active Jillina Frazell OFFICE MACHINE INSTALLER Active CEFTIN 500 MG TAB 1 tablet by mouth twice daily for ten days. CEFUROXIME AXETIL 36444640797 No Longer Active Jillina Frazell OFFICE MACHINE INSTALLER Active PREDNISONE 20 MG TAB 2 tabs daily for 3 days, 1 tab daily for 3 days, 1/2 tab daily for 2 days PREDNISONE 41304107402 No Longer Active Margarito Kelley MD Active CEPHALEXIN 500 MG CAPS 1 tablet by mouth three times daily for ten days 06/25 CEPHALEXIN 75929771489 No Longer Active Renée Adames APRN Active MEDROL (MARY) 4 MG TABS 6 pills on day 1, 5 pills on day 2, 4 pills on day 3, 4 pills on day 4, 2 pills on day 5, 1 pill on day 6 METHYLPREDNISOLONE 36924265953 No Longer Active Annita Mejia MD PhD Active ZITHROMAX Z-MARY 250 MG TABS 2 today and then 1 daily for 4 days AZITHROMYCIN 61039973144 No Longer Active Annita Mejia MD PhD Active GUAIFENESIN-CODEINE 100-10 MG/5ML SYRP 5ml every 4 to 6 hours as needed for cough GUAIFENESIN-CODEINE 61218337342 No Longer Active Annita Mejia MD PhD Active FLONASE 50 MCG/ACT SUSP 1 spray each nostril am and hs FLUTICASONE PROPIONATE 64895621974 No Longer Active Kendell Coronado MD Active MELOXICAM 15 MG TABS 1 po q day for pain with food MELOXICAM 59390568766 No Longer Active Kendell Coronado MD Active HYDROCODONE-ACETAMINOPHEN 5-325 MG TABS 1-2 q 4-6 hrs prn pain 20 tabs 07/04 HYDROCODONE-ACETAMINOPHEN 59855631185 No Longer Active Daniele Mcfadden DO Active PREDNISONE 20 MG TAB 1 tablet twice daily for 2 days, then 1 tablet once daily for 2 days PREDNISONE 68759130308 No Longer Active Daniele Mcfadden DO Active PREDNISONE 20 MG TAB 1 po bid 2 days, then daily for 2 days 12/27 PREDNISONE 82491119140 No Longer Active Alexander LOPEZ Active AZITHROMYCIN 250 MG TABS 2 po qd x 1 day, then 1 po qd x 4 days AZITHROMYCIN 64985431060 No Longer Active Daniele Mcfadden DO Active MUCINEX MAXIMUM STRENGTH UF55D-MHT 1 po qd GUAIFENESIN XR12H- TAB 89602662037 No Longer Active Daniele Mcfadden DO Active AZITHROMYCIN 250 MG TABS 2 po qd x 1 day, then 1 po qd x 4 days AZITHROMYCIN 52636282649 No Longer Active Margarito Kelley MD Active MUCINEX MAXIMUM STRENGTH DK23B-HSR 1 po qd MUCINEX MAXIMUM STRENGTH ID99V-OJP GUAIFENESIN GJ30L-WCW Inactive PREDNISONE 20 MG TAB 1 po bid 2 days, then daily for 2 days 12/27 PREDNISONE 20 MG TAB 391573 PREDNISONE Inactive PREDNISONE 20 MG TAB 1 tablet twice daily for 2 days, then 1 tablet once daily for 2 days PREDNISONE 20 MG TAB 961954 PREDNISONE Inactive HYDROCODONE-ACETAMINOPHEN 5-325 MG TABS 1-2 q 4-6 hrs prn pain 20 tabs 07/04 HYDROCODONE-ACETAMINOPHEN 5-325 MG TABS 163224 HYDROCODONE- ACETAMINOPHEN Inactive MELOXICAM 15 MG TABS 1 po q day for pain with food MELOXICAM 15 MG TABS 544177 MELOXICAM Inactive FLONASE 50 MCG/ACT SUSP 1 spray each nostril am and hs FLONASE 50 MCG/ACT SUSP FLUTICASONE PROPIONATE Inactive GUAIFENESIN-CODEINE 100-10 MG/5ML SYRP 5ml every 4 to 6 hours as needed for cough GUAIFENESIN-CODEINE 100-10 MG/5ML SYRP 907973 GUAIFENESIN-CODEINE Inactive ZITHROMAX Z-MARY 250 MG TABS 2 today and then 1 daily for 4 days ZITHROMAX Z-MARY 250 MG TABS 4842041 AZITHROMYCIN Inactive CEFTIN 500 MG TAB 1 tablet by mouth twice daily for ten days. CEFTIN 500 MG TAB 060922 CEFUROXIME AXETIL Inactive PROAIR HFA 108 (90 BASE) MCG/ACT AERS 2 puffs every 4 hours as needed 2014 PROAIR HFA 108 (90 BASE) MCG/ACT AERS ALBUTEROL SULFATE Inactive E-Z SPACER ERIBERTO use with proair inhalier every 4 times as need. E-Z SPACER ERIBERTO SPACER/AERO-HOLDING CHAMBERS Inactive IRVING-D ALLERGY & CONGESTION BR38E-QUV 1 po bid IRVING-D ALLERGY & CONGESTION OB64C-RMF FEXOFENADINE-PSEUDOEPHEDRINE XR12H- TAB Inactive AZITHROMYCIN 250 MG TABS 2 po qd x 1 day, then 1 po qd x 4 days AZITHROMYCIN 250 MG TABS 2466810 AZITHROMYCIN Inactive AZITHROMYCIN 250 MG TABS 2 po qd x 1 day, then 1 po qd x 4 days AZITHROMYCIN 250 MG TABS 1561258 AZITHROMYCIN Inactive MEDROL (MARY) 4 MG TABS 6 pills on day 1, 5 pills on day 2, 4 pills on day 3, 4 pills on day 4, 2 pills on day 5, 1 pill on day 6 MEDROL (MARY) 4 MG TABS METHYLPREDNISOLONE Inactive CEPHALEXIN 500 MG CAPS 1 tablet by mouth three times daily for ten days 06/25 CEPHALEXIN 500 MG CAPS 185765 CEPHALEXIN Inactive PREDNISONE 20 MG TAB 2 tabs daily for 3 days, 1 tab daily for 3 days, 1/2 tab daily for 2 days PREDNISONE 20 MG TAB 781261 PREDNISONE Inactive CEFDINIR 300 MG CAPS 1 cap by mouth twice a day CEFDINIR 300 MG CAPS 625820 CEFDINIR Inactive PREDNISONE 20 MG TAB 2 tabs daily for 3 days, 1 tab daily for 3 days, 1/2 tab daily for 2 days PREDNISONE 20 MG TAB 825915 PREDNISONE Inactive PREDNISONE 20 MG TAB 2 tabs daily for 3 days, 1 tab daily for 3 days, 1/2 tab daily for 2 days PREDNISONE 20 MG TAB 295638 PREDNISONE Inactive Immunizations Vaccine Administration Date Value Standard Description Human Papillomavirus vaccine (Gardasil) #2, (HPV #2) Gardasil [ CVX62] human papilloma virus vaccine, quadrivalent Seasonal influenza vaccine, injectable, containing preservative, for > 3 years old (Afluria, FluLaval, Fluzone, Fluvirin, Fluarix, Agriflu(>=18 yo)) Fluzone (>3 yrs.) [SIW389] Influenza, seasonal, injectable Human Papillomavirus Vaccine (Gardasil) #1 Given (HPV #1) Gardasil [CVX62] human papilloma virus vaccine, quadrivalent hepatitis A immunization #2 Havrix-Pedi hepatitis A vaccine, unspecified formulation Boostrix (Tetanus toxoid, reduced diphtheria toxoid and acellular pertussis vaccine, adsorbed), booster Boostrix [UKN221] tetanus toxoid, reduced diphtheria toxoid, and acellular [...] Measured Encounters Code Encounter Date Provider Facility CPT-67199 Level 3 Est. Patient 13:57:19 SATELLITE SPECIALIST Margarito Kelley MD [facility] CPT-54921 Level 3 Est. Patient 09:16:05 SATELLITE SPECIALIST Margarito Kelley MD [facility] CPT-34721 Level 3 Est. Patient 15:37:06 SATELLITE SPECIALIST Daniele Mcfadden DO [facility] CPT-09602 Level 3 Est. Patient 11:56:34 SATELLITE SPECIALIST Renée Adames APRN [facility] CPT-63810 Level 3 Est. Patient 12:19:42 CDT Daniele Mcfadden DO [facility] CPT-22509 Level 3 Est. Patient 11:08:45 CDT Annita Mejia MD PhD [facility] CPT-79036 Level 3 Est. Patient 12:00:17 CDT Kendell Coronado MD [facility] CPT-38601 Level 3 Est. Patient 12:27:25 CDT Daniele Mcfadden DO [facility] CPT-67795 Level 3 Est. Patient 18:45:11 SATELLITE SPECIALIST Daniele Mcfadden DO [facility] CPT-26271 Level 3 Est. Patient 10:12:24 SATELLITE SPECIALIST Daniele W Bogdan [facility] CPT-54086 Level 3 Est. Patient 14:35:11 SATELLITE SPECIALIST Daniele Mcfadden [facility] CPT-39881 Level 3 Est. Patient 14:11:04 CDT Daniele Mcfadden [facility] CPT-95904 Level 3 Est. Patient 10:52:13 CDT Alexander LOPEZ [facility] CPT-16940 Level 3 Est. Patient 11:01:08 SATELLITE SPECIALIST Daniele Mcfadden [facility] CPT-10159 Level 3 Est. Patient 10:55:35 CDT Daniele Mcfadden [facility] CPT-80732 Level 3 Est. Patient 14:03:08 CDT Daniele Mcfadden [facility] CPT-13678 Level 3 Est. Patient 11:26:19 CDT Margarito Kelley MD [facility] CPT-77420 Level 2 Est. Patient 15:32:04 SATELLITE SPECIALIST Daniele Mcfadden [facility] CPT-01218 Level 3 Est. Patient 16:01:26 SATELLITE SPECIALIST Daniele Mcfadden [facility] CPT-60559 Level 3 Est. Patient 06:37:10 SATELLITE SPECIALIST Daniele Salter [facility] Procedures Code Procedure Name Date Entry Date Standard Description CPT-44552 Abd compl w upright 12:34:39 CDT CPT-08138 Immunization Single Admin 11:38:41 CDT CPT-58792 Fluzone Quadrivalent Intramuscular Suspension 0.5 ML 11: 38:41 CDT CPT-OV Office Visit 14:45:12 SATELLITE SPECIALIST CPT-32367 [employer] all organs plus proximal aorta and distal IVC 2012 12:13:02 SATELLITE SPECIALIST CPT-09047 Abd compl w upright 15:12:58 SATELLITE SPECIALIST CPT-63252 Venipuncture Draw Fee 14:38:32 SATELLITE SPECIALIST CPT-38647 Administration single or combination vaccine inc oral 17 :10:04 CDT CPT-64605 Gardasil 17:10:04 CDT CPT-74392 Venipuncture Draw Fee 16:07:54 SATELLITE SPECIALIST CPT-48420 Administration 2+ single or combination vaccines inc oral 17:22:02 CDT CPT-13718 Administration single or combination vaccine inc oral 17 :22:02 CDT CPT-02830 Influenza split virus > age 3 17:22:02 CDT CPT-42530 Gardasil 17:22:02 CDT CPT-13561 Administration 2+ single or combination vaccines inc oral 14:38:31 CDT CPT-26325 Administration single or combination vaccine inc oral 14 :38:31 CDT CPT-05272 Meningococcal Conjugate Vacine (Menactra) 14:38:31 CDT CPT-74544 Gardasil 14:38:31 CDT
--- OUTSIDE RECORDS SUMMARY | 2018-02-15 06:56 | XMS REPORT | Clinical Summary ---
Author Author Admin, OLEG Organization [employer] Address Unknown Phone Unavailable Allergies, Adverse Reactions, [...] unspecified site Ankle sprain 845.00 Resolved Kendell Croonado MD Unspecified site of ankle sprain Pharyngitis [...] unspecified site Sinusitis 473.9 Active Griselda Horvath [employer]IOR SALES COMPENSATION ANALYST Unspecified sinusitis (chronic) Eustachian tube dysfunction, right 381.81 Active Margarito Kelley MD Dysfunction of Eustachian tube Pharyngitis-Acute 462 Active Daniele Mcfadden DO Acute pharyngitis URI 465.9 Active Griselda Horvath [employer]IOR SALES COMPENSATION ANALYST Acute upper respiratory infections of unspecified site Allergic rhinitis 477.9 Active Jessika Nunes [employer]IOR SALES COMPENSATION ANALYST Allergic rhinitis, cause unspecified Acute rhinosinusitis 461.9 Active Jessika Nunes SENIOR SALES COMPENSATION ANALYST Acute sinusitis, unspecified Fever 780.60 Active Griselda Horvath [employer]IOR SALES COMPENSATION ANALYST Fever, unspecified ALLERGIC RHINITIS ICD-477.9 Inactive [...] for 2 days start tomorrow 07/31/16 PREDNISONE 60459573909 Active Jillina Frazell SENIOR SALES COMPENSATION ANALYST Active AZITHROMYCIN 250 MG TABS 2 po qd x 1 day, then 1 po qd x 4 days AZITHROMYCIN 02714996899 Active Jillina Frazell S[employer]IOR SALES COMPENSATION ANALYST Active MUCINEX D 60-600 MG [id number] 1 po BID PRN Congestion PSEUDOEPHEDRINE-GUAIFENESIN 76030252446 No Longer Active Jessika Nunes SENIOR SALES COMPENSATION ANALYST Active CEFDINIR 300 MG CAPS 1 po BID x 10 days CEFDINIR [id number] No Longer Active Jillina Frazell SENIOR SALES COMPENSATION ANALYST Active PREDNISONE 20 MG TAB 2 tabs daily for 3 days, 1 tab daily for 3 days, 1/2 tab daily for 2 days PREDNISONE 78781000603 No Longer Active Jillina Frazell SENIOR SALES COMPENSATION ANALYST Active FLUTICASONE PROPIONATE 50 MCG/ACT SUSP 1 to 2 sprays each nostril daily 03/20 FLUTICASONE PROPIONATE 71305895776 No Longer Active Jillina Frazell SENIOR SALES COMPENSATION ANALYST Active GUAIFENESIN 600 MG [id number]-TMD 1 twice a day as needed for congestion GUAIFENESIN 66986505595 No Longer Active Jillina Frazell SENIOR SALES COMPENSATION ANALYST Active CEFDINIR 300 MG CAPS by mouth twice a day CEFDINIR 69494773077 No Longer Active Jillina Frazell SENIOR SALES COMPENSATION ANALYST Active PREDNISONE 20 MG TAB 1 tablet twice daily for 2 days, then 1 tablet once daily for 2 days PREDNISONE 65999182817 No Longer Active Jillina Frazell SENIOR SALES COMPENSATION ANALYST Active PREDNISONE 20 MG TAB 2 tabs daily for 3 days, 1 tab daily for 3 days, 1/2 tab daily for 2 days PREDNISONE 08906244818 No Longer Active Margarito Kelley MD Active IRVING-D ALLERGY & CONGESTION [id number] 1 po bid FEXOFENADINE-PSEUDOEPHEDRINE [id number] 90380039671 No Longer Active Margarito Kelley MD Active PREDNISONE 20 MG TAB 2 tabs daily for 3 days, 1 tab daily for 3 days, 1/2 tab daily for 2 days PREDNISONE 72096417864 No Longer Active Jillina Frazell SENIOR SALES COMPENSATION ANALYST Active CEFDINIR 300 MG CAPS 1 cap by mouth twice a day CEFDINIR 80825098749 No Longer Active Jillina Frazell SENIOR SALES COMPENSATION ANALYST Active E-Z SPACER ERIBERTO use with proair inhalier every 4 times as need. SPACER/AERO-HOLDING CHAMBERS 55930002469 No Longer Active Jillina Frazell SENIOR SALES COMPENSATION ANALYST Active PROAIR HFA 108 (90 BASE) MCG/ACT AERS 2 puffs every 4 hours as needed 2014 ALBUTEROL SULFATE 01811092812 No Longer Active Jillina Frazell SENIOR SALES COMPENSATION ANALYST Active CEFTIN 500 MG TAB 1 tablet by mouth twice daily for ten days. CEFUROXIME AXETIL 60159986422 No Longer Active Ezekielllina Frazell SENIOR SALES COMPENSATION ANALYST Active PREDNISONE 20 MG TAB 2 tabs daily for 3 days, 1 tab daily for 3 days, 1/2 tab daily for 2 days PREDNISONE 05068422559 No Longer Active Margarito Kelley MD Active CEPHALEXIN 500 MG CAPS 1 tablet by mouth three times daily for ten days 06/25 CEPHALEXIN 99366125424 No Longer Active Renée Adames APRN Active MEDROL (MARY) 4 MG TABS 6 pills on day 1, 5 pills on day 2, 4 pills on day 3, 4 pills on day 4, 2 pills on day 5, 1 pill on day 6 METHYLPREDNISOLONE 04610682302 No Longer Active Annita Mejia MD PhD Active ZITHROMAX Z-MARY 250 MG TABS 2 today and then 1 daily for 4 days AZITHROMYCIN 73668080989 No Longer Active Annita Mejia MD PhD Active GUAIFENESIN-CODEINE 100-10 MG/5ML SYRP 5ml every 4 to 6 hours as needed for cough GUAIFENESIN-CODEINE 67581150806 No Longer Active Annita Mejia MD PhD Active FLONASE 50 MCG/ACT SUSP 1 spray each nostril am and hs FLUTICASONE PROPIONATE 94239873038 No Longer Active Kendell Coronado MD Active MELOXICAM 15 MG TABS 1 po q day for pain with food MELOXICAM 86091421782 No Longer Active Kendell Coronado MD Active HYDROCODONE-ACETAMINOPHEN 5-325 MG TABS 1-2 q 4-6 hrs prn pain 20 tabs 07/04 HYDROCODONE-ACETAMINOPHEN 44279190841 No Longer Active Daniele Mcfadden DO Active PREDNISONE 20 MG TAB 1 tablet twice daily for 2 days, then 1 tablet once daily for 2 days PREDNISONE 43736774378 No Longer Active Daniele Mcfadden DO Active PREDNISONE 20 MG TAB 1 po bid 2 days, then daily for 2 days 12/27 PREDNISONE 35407737400 No Longer Active Alexander LOPEZ Active AZITHROMYCIN 250 MG TABS 2 po qd x 1 day, then 1 po qd x 4 days AZITHROMYCIN 78846813674 No Longer Active Daniele Mcfadden DO Active MUCINEX MAXIMUM STRENGTH [id number] 1 po qd GUAIFENESIN XR12H- TAB 72771541209 No Longer Active Daniele Mcfadden DO Active AZITHROMYCIN 250 MG TABS 2 po qd x 1 day, then 1 po qd x 4 days AZITHROMYCIN 22458552563 No Longer Active Margarito Kelley MD Active MUCINEX MAXIMUM STRENGTH [id number]-ZMO 1 po qd MUCINEX MAXIMUM STRENGTH PG95E-WUG GUAIFENESIN ZV38L-NJQ Inactive PREDNISONE 20 MG TAB 1 po bid 2 days, then daily for 2 days 12/27 PREDNISONE 20 MG TAB 347359 PREDNISONE Inactive PREDNISONE 20 MG TAB 1 tablet twice daily for 2 days, then 1 tablet once daily for 2 days PREDNISONE 20 MG TAB 394793 PREDNISONE Inactive HYDROCODONE-ACETAMINOPHEN 5-325 MG TABS 1-2 q 4-6 hrs prn pain 20 tabs 07/04 HYDROCODONE-ACETAMINOPHEN 5-325 MG TABS 214703 HYDROCODONE- ACETAMINOPHEN Inactive MELOXICAM 15 MG TABS 1 po q day for pain with food MELOXICAM 15 MG TABS 845078 MELOXICAM Inactive FLONASE 50 MCG/ACT SUSP 1 spray each nostril am and hs FLONASE 50 MCG/ACT SUSP FLUTICASONE PROPIONATE Inactive GUAIFENESIN-CODEINE 100-10 MG/5ML SYRP 5ml every 4 to 6 hours as needed for cough GUAIFENESIN-CODEINE 100-10 MG/5ML SYRP 166106 GUAIFENESIN-CODEINE Inactive ZITHROMAX Z-MARY 250 MG TABS 2 today and then 1 daily for 4 days ZITHROMAX Z-MARY 250 MG TABS 1496034 AZITHROMYCIN Inactive CEFTIN 500 MG TAB 1 tablet by mouth twice daily for ten days. CEFTIN 500 MG TAB 827193 CEFUROXIME AXETIL Inactive PROAIR HFA 108 (90 BASE) MCG/ACT AERS 2 puffs every 4 hours as needed 2014 PROAIR HFA 108 (90 BASE) MCG/ACT AERS ALBUTEROL SULFATE Inactive E-Z SPACER ERIBERTO use with proair inhalier every 4 times as need. E-Z SPACER ERIBERTO SPACER/AERO-HOLDING CHAMBERS Inactive IRVING-D ALLERGY & CONGESTION [id number] 1 po bid IRVING-D ALLERGY & CONGESTION [id number] FEXOFENADINE-PSEUDOEPHEDRINE XR12H- TAB Inactive PREDNISONE 20 MG TAB 1 tablet twice daily for 2 days, then 1 tablet once daily for 2 days PREDNISONE 20 MG TAB 707551 PREDNISONE Inactive GUAIFENESIN 600 MG QF47L-YRU 1 twice a day as needed for congestion GUAIFENESIN 600 MG ND49D-DPP GUAIFENESIN Inactive FLUTICASONE PROPIONATE 50 MCG/ACT SUSP 1 to 2 sprays each nostril daily 03/20 FLUTICASONE PROPIONATE 50 MCG/ACT SUSP 8305700 FLUTICASONE PROPIONATE Inactive MUCINEX D 60-600 MG FV55O-LCZ 1 po BID PRN Congestion MUCINEX D 60-600 MG CJ56H-BJS PSEUDOEPHEDRINE-GUAIFENESIN Inactive AZITHROMYCIN 250 MG TABS 2 po qd x 1 day, then 1 po qd x 4 days AZITHROMYCIN 250 MG TABS 4187476 AZITHROMYCIN Inactive AZITHROMYCIN 250 MG TABS 2 po qd x 1 day, then 1 po qd x 4 days AZITHROMYCIN 250 MG TABS 4241389 AZITHROMYCIN Inactive MEDROL (MARY) 4 MG TABS 6 pills on day 1, 5 pills on day 2, 4 pills on day 3, 4 pills on day 4, 2 pills on day 5, 1 pill on day 6 MEDROL (MARY) 4 MG TABS 705292 METHYLPREDNISOLONE Inactive CEPHALEXIN 500 MG CAPS 1 tablet by mouth three times daily for ten days 06/25 CEPHALEXIN 500 MG CAPS 214784 CEPHALEXIN Inactive PREDNISONE 20 MG TAB 2 tabs daily for 3 days, 1 tab daily for 3 days, 1/2 tab daily for 2 days PREDNISONE 20 MG TAB 443240 PREDNISONE Inactive CEFDINIR 300 MG CAPS 1 cap by mouth twice a day CEFDINIR 300 MG CAPS 889754 CEFDINIR Inactive PREDNISONE 20 MG TAB 2 tabs daily for 3 days, 1 tab daily for 3 days, 1/2 tab daily for 2 days PREDNISONE 20 MG TAB 850948 PREDNISONE Inactive PREDNISONE 20 MG TAB 2 tabs daily for 3 days, 1 tab daily for 3 days, 1/2 tab daily for 2 days PREDNISONE 20 MG TAB 049863 PREDNISONE Inactive CEFDINIR 300 MG CAPS by mouth twice a day CEFDINIR 300 MG CAPS 20021026 CEFDINIR Inactive PREDNISONE 20 MG TAB 2 tabs daily for 3 days, 1 tab daily for 3 days, 1/2 tab daily for 2 days PREDNISONE 20 MG TAB 429982 PREDNISONE Inactive CEFDINIR 300 MG CAPS 1 po BID x 10 days CEFDINIR 300 MG CAPS 20021026 CEFDINIR Inactive Immunizations Vaccine Administration Date Value Standard Description Human Papillomavirus vaccine (Gardasil) #2, (HPV #2) Gardasil [ CVX62] human papilloma virus vaccine, quadrivalent Seasonal influenza vaccine, injectable, containing preservative, for > 3 years old (Afluria, FluLaval, Fluzone, Fluvirin, Fluarix, Agriflu(>=18 yo)) Fluzone (>3 yrs.) [[id number]] Influenza, seasonal, injectable Human Papillomavirus Vaccine (Gardasil) #1 Given (HPV #1) Gardasil [CVX62] human papilloma virus vaccine, quadrivalent hepatitis A immunization #2 Havrix-Pedi hepatitis A vaccine, unspecified formulation Boostrix (Tetanus toxoid, reduced diphtheria toxoid and acellular pertussis vaccine, adsorbed), booster Boostrix [GJA452] tetanus toxoid, reduced diphtheria toxoid, and acellular [...] Negative;Positive Encounters Code Encounter Date Provider Facility CPT-24227 Level 3 Est. Patient 10:49:47 PINMAKER Griselda Horvath [facility] CPT-05920 Level 3 Est. Patient 08:43:59 PINMAKER Jessika Nunes [facility] CPT-46094 Level 3 Est. Patient 09:05:19 PINMAKER Griselda Horvath [facility] CPT-64954 Level 3 Est. Patient 15:45:46 CDT Griselda Horvath [facility] CPT-25846 Level 3 Est. Patient 14:15:52 CDT Daniele Mcfadden DO [facility] CPT-56056 Level 3 Est. Patient 13:57:19 PINMAKER Margarito Kelley MD [facility] CPT-12501 Level 3 Est. Patient 09:16:05 PINMAKER Margarito Kelley MD [facility] CPT-74140 Level 3 Est. Patient 15:37:06 PINMAKER Daniele Mcfadden [facility] CPT-37372 Level 3 Est. Patient 11:56:34 PINMAKER Renée Adames ALEX [facility] CPT-56983 Level 3 Est. Patient 12:19:42 CDT Daniele Mcfadden [facility] CPT-07246 Level 3 Est. Patient 11:08:45 CDT Annita Mejia MD PhD [facility] CPT-70924 Level 3 Est. Patient 12:00:17 CDT Kendell Coronado MD [facility] CPT-11284 Level 3 Est. Patient 12:27:25 CDT Daniele Mcfadden [facility] CPT-32979 Level 3 Est. Patient 18:45:11 PINMAKER Daniele Mcfadden [facility] CPT-68944 Level 3 Est. Patient 10:12:24 PINMAKER Daniele Mcfadden [facility] CPT-76440 Level 3 Est. Patient 14:35:11 PINMAKER Daniele Mcfadden [facility] CPT-32975 Level 3 Est. Patient 14:11:04 CDT Daniele Mcfadden [facility] CPT-01080 Level 3 Est. Patient 10:52:13 CDT Alexander LOPEZ [facility] CPT-03832 Level 3 Est. Patient 11:01:08 PINMAKER Daniele Mcfadden [facility] CPT-25200 Level 3 Est. Patient 10:55:35 CDT Daniele Mcfadden [facility] CPT-81228 Level 3 Est. Patient 14:03:08 CDT Daniele Mcfadden [facility] CPT-71839 Level 3 Est. Patient 11:26:19 CDT Margarito Kelley MD [facility] CPT-21653 Level 2 Est. Patient 15:32:04 PINMAKER Daniele Gaetano Mcfadden [facility] CPT-29527 Level 3 Est. Patient 16:01:26 PINMAKER Daniele Mcfadden [facility] CPT-64502 Level 3 Est. Patient 06:37:10 PINMAKER Daniele Mcfadden [facility] Procedures Code Procedure Name Date Entry Date Standard Description CPT-38623 Throat Culture - LAB USE ONLY 12:15:45 PINMAKER CPT-45990 Shani Flu A/B - LAB USE ONLY 12:15:45 PINMAKER CPT-37093 Rapid Strep (Reflex throat) - LAB USE ONLY 12:15:45 PINMAKER CPT-95641 Rapid Strep (Grp A) - LAB USE ONLY 13:06:06 CDT CPT-00625 Abd compl w upright 12:34:39 CDT CPT-48526 Immunization Single Admin 11:38:41 CDT CPT-60020 Fluzone Quadrivalent Intramuscular Suspension 0.5 ML 11: 38:41 CDT CPT-OV Office Visit 14:45:12 PINMAKER CPT-22410 [facility] [employer] [facility] all organs plus proximal aorta and distal IVC 2012 12:13:02 PINMAKER CPT-05004 Abd compl w upright 15:12:58 PINMAKER CPT-26315 Venipuncture Draw Fee 14:38:32 PINMAKER CPT-45359 Administration single or combination vaccine inc oral 17 :10:04 CDT CPT-65741 Gardasil 17:10:04 CDT CPT-04361 Venipuncture Draw Fee 16:07:54 PINMAKER CPT-65349 Administration 2+ single or combination vaccines inc oral 17:22:02 CDT CPT-69609 Administration single or combination vaccine inc oral 17 :22:02 CDT CPT-20638 Influenza split virus > age 3 17:22:02 CDT CPT-05912 Gardasil 17:22:02 CDT CPT-84565 Administration 2+ single or combination vaccines inc oral 14:38:31 CDT CPT-23018 Administration single or combination vaccine inc oral 14 :38:31 CDT CPT-45859 Meningococcal Conjugate Vacine (Menactra) 14:38:31 CDT CPT-60635 Gardasil 14:38:31 CDT
--- OUTSIDE RECORDS SUMMARY | 2018-02-15 06:57 | XMS REPORT | Clinical Summary ---
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 Medication List Medication Instructions Start Date Stop Date Generic Name NDC Status Provider Patient Instruction PREDNISONE 20 MG ORAL TABLET two tabs by mouth today, then one tab by mouth days two and three PREDNISONE 57515249452 Active Daniele Mcfadden DO Active AZITHROMYCIN 250 MG ORAL TABLET 2 po qd x 1 day, then 1 po qd x 4 days 07/24 AZITHROMYCIN 51091108881 Active Daniele Mcfadden DO Active IRVING-D ALLERGY & CONGESTION 60-120 MG ORAL TABLET EXTENDED RELEASE 12 HOUR 1 tablet twice daily as needed for congestion/allergies FEXOFENADINE-PSEUDOEPHEDRINE 81145285786 Active Holly Sharma Active PREDNISONE 20 MG ORAL TABLET 2 tabs daily for 3 days, 1 tab daily for 3 days, 1/2 tab daily for 2 days start tomorrow 07/31/16 PREDNISONE 11596507274 No Longer Active Jillina Alexandru JOHNSON Active AZITHROMYCIN 250 MG ORAL TABLET 2 po qd x 1 day, then 1 po qd x 4 days 08/30 AZITHROMYCIN 77860276396 No Longer Active Ezekielllina Alexandru JOHNSON Active MUCINEX D 60-600 MG ORAL TABLET EXTENDED RELEASE 12 HOUR 1 po BID PRN Congestion PSEUDOEPHEDRINE-GUAIFENESIN 31287001069 No Longer Active Jessika Nunes APRN Active CEFDINIR 300 MG ORAL CAPSULE 1 po BID x 10 days CEFDINIR 10973391353 No Longer Active Jillina Alexandru JOHNSON Active PREDNISONE 20 MG ORAL TABLET 2 tabs daily for 3 days, 1 tab daily for 3 days, 1/2 tab daily for 2 days PREDNISONE 20233824639 No Longer Active Jillina Frazell MEDIA PLANNER / BUYER Active FLUTICASONE PROPIONATE 50 MCG/ACT NASAL SUSPENSION 1 to 2 sprays each nostril daily FLUTICASONE PROPIONATE 97182027515 No Longer Active Jillina Frazell MEDIA PLANNER / BUYER Active GUAIFENESIN ER 600 MG ORAL TABLET EXTENDED RELEASE 12 HOUR 1 twice a day as needed for congestion GUAIFENESIN 18668765609 No Longer Active Jillina Frazell MEDIA PLANNER / BUYER Active CEFDINIR 300 MG ORAL CAPSULE by mouth twice a day CEFDINIR 42799779999 No Longer Active Jillina Frazell MEDIA PLANNER / BUYER Active PREDNISONE 20 MG ORAL TABLET 1 tablet twice daily for 2 days, then 1 tablet once daily for 2 days PREDNISONE 89703924817 No Longer Active Jillina Frazell MEDIA PLANNER / BUYER Active PREDNISONE 20 MG ORAL TABLET 2 tabs daily for 3 days, 1 tab daily for 3 days, 1/2 tab daily for 2 days PREDNISONE 08013989263 No Longer Active Margarito Kelley MD Active IRVING-D ALLERGY & CONGESTION TABLET EXTENDED RELEASE 12 HOUR 1 po bid 05/26 FEXOFENADINE-PSEUDOEPHEDRINE [id number] 80178570655 No Longer Active Margarito Kelley MD Active PREDNISONE 20 MG ORAL TABLET 2 tabs daily for 3 days, 1 tab daily for 3 days, 1/2 tab daily for 2 days PREDNISONE 29937128332 No Longer Active Ezekielllina Framarkl MEDIA PLANNER / BUYER Active CEFDINIR 300 MG ORAL CAPSULE 1 cap by mouth twice a day CEFDINIR 09130733515 No Longer Active Jillina Frazell MEDIA PLANNER / BUYER Active E-Z SPACER DEVICE use with proair inhalier every 4 times as need. SPACER/AERO-HOLDING CHAMBERS 03454324253 No Longer Active Jillina Frazell MEDIA PLANNER / BUYER Active PROAIR HFA 108 (90 Base) MCG/ACT INHALATION AEROSOL SOLUTION 2 puffs every 4 hours as needed ALBUTEROL SULFATE 26660661900 No Longer Active Ezekielllina Jiml MEDIA PLANNER / BUYER Active CEFTIN 500 MG ORAL TABLET 1 tablet by mouth twice daily for ten days. CEFUROXIME AXETIL 79622099952 No Longer Active Ezekielllina Alexandru ONTIVEROSN Active PREDNISONE 20 MG ORAL TABLET 2 tabs daily for 3 days, 1 tab daily for 3 days, 1/2 tab daily for 2 days PREDNISONE 63806862294 No Longer Active Margarito Kelley MD Active CEPHALEXIN 500 MG ORAL CAPSULE 1 tablet by mouth three times daily for ten days CEPHALEXIN 50872421210 No Longer Active Renée Adames ALEX Active MEDROL 4 MG ORAL TABLET THERAPY PACK 6 pills on day 1, 5 pills on day 2, 4 pills on day 3, 4 pills on day 4, 2 pills on day 5, 1 pill on day 6 METHYLPREDNISOLONE 77180715505 No Longer Active Annita Mejia MD PhD Active ZITHROMAX Z-MARY 250 MG ORAL TABLET 2 today and then 1 daily for 4 days 03/11 AZITHROMYCIN 15729156373 No Longer Active Annita Mejia MD PhD Active GUAIFENESIN-CODEINE 100-10 MG/5ML ORAL SYRUP 5ml every 4 to 6 hours as needed for cough GUAIFENESIN-CODEINE 77920241519 No Longer Active Annita Mejia MD PhD Active FLONASE 50 MCG/ACT NASAL SUSPENSION 1 spray each nostril am and hs FLUTICASONE PROPIONATE 49578209743 No Longer Active Kendell Coronado MD Active MELOXICAM 15 MG ORAL TABLET 1 po q day for pain with food MELOXICAM 16626397938 No Longer Active Kendell Coronado MD Active HYDROCODONE-ACETAMINOPHEN 5-325 MG ORAL TABLET 1-2 q 4-6 hrs prn pain 20 tabs HYDROCODONE-ACETAMINOPHEN 41843349808 No Longer Active Daniele Mcfadden DO Active PREDNISONE 20 MG ORAL TABLET 1 tablet twice daily for 2 days, then 1 tablet once daily for 2 days PREDNISONE 60236525056 No Longer Active Daniele Mcfadden DO Active PREDNISONE 20 MG ORAL TABLET 1 po bid 2 days, then daily for 2 days PREDNISONE 77829864445 No Longer Active Alexander LOPEZ Active AZITHROMYCIN 250 MG ORAL TABLET 2 po qd x 1 day, then 1 po qd x 4 days 08/05 AZITHROMYCIN 52098130791 No Longer Active Daniele Mcfadden DO Active MUCINEX MAXIMUM STRENGTH TABLET EXTENDED RELEASE 12 HOUR 1 po qd GUAIFENESIN [id number] 37719646302 No Longer Active Daniele Mcfadden DO Active AZITHROMYCIN 250 MG ORAL TABLET 2 po qd x 1 day, then 1 po qd x 4 days 11/26 AZITHROMYCIN 52129054143 No Longer Active Margarito Kelley MD Active MUCINEX MAXIMUM STRENGTH TABLET EXTENDED RELEASE 12 HOUR 1 po qd MUCINEX MAXIMUM STRENGTH TABLET EXTENDED RELEASE 12 HOUR GUAIFENESIN [id number] Inactive PREDNISONE 20 MG ORAL TABLET 1 po bid 2 days, then daily for 2 days PREDNISONE 20 MG ORAL TABLET 366440 PREDNISONE Inactive PREDNISONE 20 MG ORAL TABLET 1 tablet twice daily for 2 days, then 1 tablet once daily for 2 days PREDNISONE 20 MG ORAL TABLET 922322 PREDNISONE Inactive HYDROCODONE-ACETAMINOPHEN 5-325 MG ORAL TABLET 1-2 q 4-6 hrs prn pain 20 tabs HYDROCODONE-ACETAMINOPHEN 5-325 MG ORAL TABLET 402189 HYDROCODONE-ACETAMINOPHEN Inactive MELOXICAM 15 MG ORAL TABLET 1 po q day for pain with food MELOXICAM 15 MG ORAL TABLET 668049 MELOXICAM Inactive FLONASE 50 MCG/ACT NASAL SUSPENSION 1 spray each nostril am and hs FLONASE 50 MCG/ACT NASAL SUSPENSION 7778553 FLUTICASONE PROPIONATE Inactive GUAIFENESIN-CODEINE 100-10 MG/5ML ORAL SYRUP 5ml every 4 to 6 hours as needed for cough GUAIFENESIN-CODEINE 100-10 MG/5ML ORAL SYRUP 181989 GUAIFENESIN-CODEINE Inactive ZITHROMAX Z-MARY 250 MG ORAL TABLET 2 today and then 1 daily for 4 days 03/11 ZITHROMAX Z-MARY 250 MG ORAL TABLET 815002 AZITHROMYCIN Inactive CEFTIN 500 MG ORAL TABLET 1 tablet by mouth twice daily for ten days. CEFTIN 500 MG ORAL TABLET 487017 CEFUROXIME AXETIL Inactive PROAIR HFA 108 (90 [...] CONGESTION TABLET EXTENDED RELEASE 12 HOUR FEXOFENADINE-PSEUDOEPHEDRINE [id number] Inactive PREDNISONE 20 MG ORAL TABLET 1 tablet twice daily for 2 days, then 1 tablet once daily for 2 days PREDNISONE 20 MG ORAL TABLET 605163 PREDNISONE Inactive GUAIFENESIN ER 600 MG ORAL TABLET EXTENDED RELEASE 12 HOUR 1 twice a day as needed for congestion GUAIFENESIN ER 600 MG ORAL TABLET EXTENDED RELEASE 12 HOUR GUAIFENESIN Inactive FLUTICASONE PROPIONATE 50 MCG/ACT NASAL SUSPENSION 1 to 2 sprays each nostril daily FLUTICASONE PROPIONATE 50 MCG/ACT NASAL SUSPENSION 0849797 FLUTICASONE PROPIONATE Inactive MUCINEX D 60-600 MG ORAL TABLET EXTENDED RELEASE 12 HOUR 1 po BID PRN Congestion MUCINEX D 60-600 MG ORAL TABLET EXTENDED RELEASE 12 HOUR PSEUDOEPHEDRINE-GUAIFENESIN Inactive AZITHROMYCIN 250 MG ORAL TABLET 2 po qd x 1 day, then 1 po qd x 4 days 11/26 AZITHROMYCIN 250 MG ORAL TABLET 395257 AZITHROMYCIN Inactive AZITHROMYCIN 250 MG ORAL TABLET 2 po qd x 1 day, then 1 po qd x 4 days 08/05 AZITHROMYCIN 250 MG ORAL TABLET 454020 AZITHROMYCIN Inactive MEDROL 4 MG ORAL TABLET THERAPY PACK 6 pills on day 1, 5 pills on day 2, 4 pills on day 3, 4 pills on day 4, 2 pills on day 5, 1 pill on day 6 MEDROL 4 MG ORAL TABLET THERAPY PACK 141884 METHYLPREDNISOLONE Inactive CEPHALEXIN 500 MG ORAL CAPSULE 1 tablet by mouth three times daily for ten days CEPHALEXIN 500 MG ORAL CAPSULE 503948 CEPHALEXIN Inactive PREDNISONE 20 MG ORAL TABLET 2 tabs daily for 3 days, 1 tab daily for 3 days, 1/2 tab daily for 2 days PREDNISONE 20 MG ORAL TABLET 742581 PREDNISONE Inactive CEFDINIR 300 MG ORAL CAPSULE 1 cap by mouth twice a day CEFDINIR 300 MG ORAL CAPSULE 404819 CEFDINIR Inactive PREDNISONE 20 MG ORAL TABLET 2 tabs daily for 3 days, 1 tab daily for 3 days, 1/2 tab daily for 2 days PREDNISONE 20 MG ORAL TABLET 026599 PREDNISONE Inactive PREDNISONE 20 MG ORAL TABLET 2 tabs daily for 3 days, 1 tab daily for 3 days, 1/2 tab daily for 2 days PREDNISONE 20 MG ORAL TABLET 189232 PREDNISONE Inactive CEFDINIR 300 MG ORAL CAPSULE by mouth twice a day CEFDINIR 300 MG ORAL CAPSULE 104994 CEFDINIR Inactive PREDNISONE 20 MG ORAL TABLET 2 tabs daily for 3 days, 1 tab daily for 3 days, 1/2 tab daily for 2 days PREDNISONE 20 MG ORAL TABLET 310719 PREDNISONE Inactive CEFDINIR 300 MG ORAL CAPSULE 1 po BID x 10 days CEFDINIR 300 MG ORAL CAPSULE 972539 CEFDINIR Inactive AZITHROMYCIN 250 MG ORAL TABLET 2 po qd x 1 day, then 1 po qd x 4 days 08/30 AZITHROMYCIN 250 MG ORAL TABLET 285856 AZITHROMYCIN Inactive PREDNISONE 20 MG ORAL TABLET 2 tabs daily for 3 days, 1 tab daily for 3 days, 1/2 tab daily for 2 days start tomorrow 07/31/16 PREDNISONE 20 MG ORAL TABLET 632550 PREDNISONE Inactive Immunizations Vaccine Administration Date Value Standard Description Human Papillomavirus vaccine (Gardasil) #2, (HPV #2) Gardasil [ [id number]] human papilloma virus vaccine, quadrivalent Seasonal influenza vaccine, injectable, containing preservative, for > 3 years old (Afluria, FluLaval, Fluzone, Fluvirin, Fluarix, Agriflu(>=18 yo)) Fluzone (>3 yrs.) [[id number]] Influenza, seasonal, injectable Human Papillomavirus Vaccine (Gardasil) #1 Given (HPV #1) Gardasil [CVX62] human papilloma virus vaccine, quadrivalent hepatitis A immunization #2 Havrix-Pedi hepatitis A vaccine, unspecified formulation Boostrix (Tetanus toxoid, reduced diphtheria toxoid and acellular pertussis vaccine, adsorbed), booster Boostrix [[id number]] tetanus toxoid, reduced diphtheria toxoid, and acellular [...] Negative;Positive Encounters Code Encounter Date Provider Facility CPT-65698 Level 3 Est. [facility] 17:42:[facility] Patient 10:49:47 GEOMETRICIAN Griselda Horvath [facility] CPT-62538 Level 3 Est. Patient 08:43:59 GEOMETRICIAN Jessika Nunes [facility] CPT-20292 Level 3 Est. Patient 09:05:19 GEOMETRICIAN Griselda Horvath [facility] CPT-03072 Level 3 Est. Patient 15:45:46 CDT Griselda Horvath [facility] CPT-31319 Level 3 Est. Patient 14:15:52 CDT Daniele W Bogdan [facility] CPT-10716 Level 3 Est. Patient 13:57:19 GEOMETRICIAN Margarito Kelley MD [facility] CPT-90324 Level 3 Est. Patient 09:16:05 GEOMETRICIAN Margarito Kelley MD [facility] CPT-45859 Level 3 Est. Patient 15:37:06 GEOMETRICIAN Daniele Mcfadden [facility] CPT-08431 Level 3 Est. Patient 11:56:34 GEOMETRICIAN Renée Adames APRN [facility] CPT-67470 Level 3 Est. Patient 12:19:42 CDT Daniele Mcfadden [facility] CPT-08886 Level 3 Est. Patient 11:08:45 CDT Annita Mejia MD [facility] CPT-00187 Level 3 Est. Patient 12:00:17 CDT Kendell Coronado MD [facility] CPT-22283 Level 3 Est. Patient 12:27:25 CDT Daniele Mcfadden [facility] CPT-95126 Level 3 Est. Patient 18:45:11 GEOMETRICIAN Daniele Mcfadden [facility] CPT-63657 Level 3 Est. Patient 10:12:24 GEOMETRICIAN Daniele Mcfadden [facility] CPT-58145 Level 3 Est. Patient 14:35:11 GEOMETRICIAN Daniele Mcfadden [facility] CPT-86630 Level 3 Est. Patient 14:11:04 CDT Daniele Mcfadden [facility] CPT-86719 Level 3 Est. Patient 10:52:13 CDT Alexander LOPEZ [facility] CPT-05254 Level 3 Est. Patient 11:01:08 GEOMETRICIAN Daniele Mcfadden [facility] CPT-36539 Level 3 Est. Patient 10:55:35 CDT Daniele Mcfadden [facility] CPT-56394 Level 3 Est. Patient 14:03:08 CDT Daniele Mcfadden [facility] CPT-18061 Level 3 Est. Patient 11:26:19 CDT Margarito Kelley MD [facility] CPT-92484 Level 2 Est. Patient 15:32:04 GEOMETRICIAN Daniele Mcfadden [facility] CPT-02273 Level 3 Est. Patient 16:01:26 GEOMETRICIAN Daniele Mcfadden [facility] CPT-95116 Level 3 Est. Patient 06:37:10 GEOMETRICIAN Daniele Mcfadden [facility] Procedures Code Procedure Name Date Entry Date Standard Description CPT-42672 Addl Vx - Ix admin via ID IM or jet injects without counseling by physician 14:37:19 CDT CPT-50477 Meningococcal B, recombinant vaccine 14:37:19 CDT 03/05 CPT-37144 First Vx - Ix admin via ID IM or jet injects without counseling by physician 14:37:19 CDT CPT-97580 Menveo Intramuscular Solution Reconstituted 14:37:19 CDT CPT-28930 Meningococcal Conjugate Vacine (Menactra) 11:20:04 CDT CPT-13690 Throat Culture - LAB USE ONLY 12:15:45 GEOMETRICIAN CPT-40028 Shani Flu A/B - LAB USE ONLY 12:15:45 GEOMETRICIAN CPT-20805 Rapid Strep (Reflex throat) - LAB USE ONLY 12:15:45 GEOMETRICIAN CPT-08260 Rapid Strep (Grp A) - LAB USE ONLY 13:06:06 CDT CPT-60249 Abd compl w upright 12:34:39 CDT CPT-83096 Immunization Single Admin 11:38:41 CDT CPT-39178 Fluzone Quadrivalent Intramuscular Suspension 0.5 ML 11: 38:41 CDT CPT-OV Office Visit 14:45:12 GEOMETRICIAN CPT-42273 [employer]d [employer] inc all organs plus proximal aorta and distal IVC 2012 12:13:02 GEOMETRICIAN CPT-82694 Abd compl w upright 15:12:58 GEOMETRICIAN CPT-77175 Venipuncture Draw Fee 14:38:32 GEOMETRICIAN CPT-99029 Administration single or combination vaccine inc oral 17 :10:04 CDT CPT-68359 Gardasil 17:10:04 CDT CPT-37490 Venipuncture Draw Fee 16:07:54 GEOMETRICIAN CPT-33605 Administration 2+ single or combination vaccines inc oral 17:22:02 CDT CPT-32557 Administration single or combination vaccine inc oral 17 :22:02 CDT CPT-35828 Influenza split virus > age 3 17:22:02 CDT CPT-50222 Gardasil 17:22:02 CDT CPT-32125 Administration 2+ single or combination vaccines inc oral 14:38:31 CDT CPT-53338 Administration single or combination vaccine inc oral 14 :38:31 CDT CPT-06606 Meningococcal Conjugate Vacine (Menactra) 14:38:31 CDT CPT-25198 Gardasil 14:38:31 CDT
--- OUTSIDE RECORDS SUMMARY | 2018-02-15 06:58 | XMS REPORT | Clinical Summary ---
Author Author Admin, Ludmila Organization [employer] [facility] Address Unknown Phone Unavailable Allergies, Adverse Reactions, Alerts Allergy Name Reaction Description Start Date Severity Status Provider PCN Critical Active Daniele Mcfaddne DO Conditions or Problems Problem Name Problem [...] status U R I 465.9 Active Whitley Richei Hernandez Acute upper respiratory infections of unspecified [...] Pack MD Abdominal pain ICD-789.00 Inactive Errol Pakc MD Biliary dyskinesia ICD-575.8 Inactive Katie Gipson [...] Brandan BOWMAN Pharyngitis-Acute ICD-462 Inactive Katie Gipson [employer]OR [employer]SCAPE ARCHITECT URI ICD-465.9 Inactive Katie Gipson COLBY Allergic rhinitis ICD-477.9 Inactive Katie Gipson [employer]DO[employer]ANDSCAPE ARCHITECT Acute rhinosinusitis ICD-461.9 Inactive Katie Gipson INDOOR LANDSCAPE ARCHITECT Fever ICD-780.60 Inactive Katie Gipsonfredrick FAIRBANKSN Immunization due ICD-V15.83 Inactive Katie Gipson INDOOR LANDSCAPE ARCHITECT Medication List Medication Instructions Start Date Stop Date Generic Name NDC Status Provider Patient Instruction PREDNISONE 20 MG ORAL TABLET two tabs by mouth today, then one tab by mouth days two and three PREDNISONE 84338742001 Active Daniele Mcfadden DO Active AZITHROMYCIN 250 MG ORAL TABLET 2 po qd x 1 day, then 1 po qd x 4 days 07/24 AZITHROMYCIN 69590022733 Active Daniele Mcfadden DO Active IRVING-D ALLERGY & CONGESTION 60-120 MG ORAL TABLET EXTENDED RELEASE 12 HOUR 1 tablet twice daily as needed for congestion/allergies FEXOFENADINE-PSEUDOEPHEDRINE 54849204699 Active Holly Sharma Active PREDNISONE 20 MG ORAL TABLET 2 tabs daily for 3 days, 1 tab daily for 3 days, 1/2 tab daily for 2 days start tomorrow 07/31/16 PREDNISONE 43573987833 No Longer Active Jillina Alexandru JOHNSON Active AZITHROMYCIN 250 MG ORAL TABLET 2 po qd x 1 day, then 1 po qd x 4 days 08/30 AZITHROMYCIN 69618811814 No Longer Active Ezekielllina Alexandru JOHNSON Active MUCINEX D 60-600 MG ORAL TABLET EXTENDED RELEASE 12 HOUR 1 po BID PRN Congestion PSEUDOEPHEDRINE-GUAIFENESIN 70230922977 No Longer Active Jessika Nunes APRN Active CEFDINIR 300 MG ORAL CAPSULE 1 po BID x 10 days CEFDINIR 03952199344 No Longer Active Jillina Alexandru JOHNSON Active PREDNISONE 20 MG ORAL TABLET 2 tabs daily for 3 days, 1 tab daily for 3 days, 1/2 tab daily for 2 days PREDNISONE 71156828610 No Longer Active Jillina Frazell OIL HEAT TECHNICIAN Active FLUTICASONE PROPIONATE 50 MCG/ACT NASAL SUSPENSION 1 to 2 sprays each nostril daily FLUTICASONE PROPIONATE 09312060221 No Longer Active Jillina Frazell OIL HEAT TECHNICIAN Active GUAIFENESIN ER 600 MG ORAL TABLET EXTENDED RELEASE 12 HOUR 1 twice a day as needed for congestion GUAIFENESIN 76299018586 No Longer Active Jillina Frazell OIL HEAT TECHNICIAN Active CEFDINIR 300 MG ORAL CAPSULE by mouth twice a day CEFDINIR 31120702339 No Longer Active Jillina Frazell OIL HEAT TECHNICIAN Active PREDNISONE 20 MG ORAL TABLET 1 tablet twice daily for 2 days, then 1 tablet once daily for 2 days PREDNISONE 72191114963 No Longer Active Jillina Frazell OIL HEAT TECHNICIAN Active PREDNISONE 20 MG ORAL TABLET 2 tabs daily for 3 days, 1 tab daily for 3 days, 1/2 tab daily for 2 days PREDNISONE 67393222291 No Longer Active Margarito Kelley MD Active IRVING-D ALLERGY & CONGESTION TABLET EXTENDED RELEASE 12 HOUR 1 po bid 05/26 FEXOFENADINE-PSEUDOEPHEDRINE [id number] 99630078062 No Longer Active Margarito Kelley MD Active PREDNISONE 20 MG ORAL TABLET 2 tabs daily for 3 days, 1 tab daily for 3 days, 1/2 tab daily for 2 days PREDNISONE 45146492967 No Longer Active Ezekielllina Framarkl OIL HEAT TECHNICIAN Active CEFDINIR 300 MG ORAL CAPSULE 1 cap by mouth twice a day CEFDINIR 44505943370 No Longer Active Jillina Frazell OIL HEAT TECHNICIAN Active E-Z SPACER DEVICE use with proair inhalier every 4 times as need. SPACER/AERO-HOLDING CHAMBERS 57279944842 No Longer Active Jillina Frazell OIL HEAT TECHNICIAN Active PROAIR HFA 108 (90 Base) MCG/ACT INHALATION AEROSOL SOLUTION 2 puffs every 4 hours as needed ALBUTEROL SULFATE 00404370776 No Longer Active Ezekielllina Jiml OIL HEAT TECHNICIAN Active CEFTIN 500 MG ORAL TABLET 1 tablet by mouth twice daily for ten days. CEFUROXIME AXETIL 23164486322 No Longer Active Ezekielllina Alexandru ONTIVEROSN Active PREDNISONE 20 MG ORAL TABLET 2 tabs daily for 3 days, 1 tab daily for 3 days, 1/2 tab daily for 2 days PREDNISONE 91532782998 No Longer Active Margarito Kelley MD Active CEPHALEXIN 500 MG ORAL CAPSULE 1 tablet by mouth three times daily for ten days CEPHALEXIN 43687549013 No Longer Active Renée Adames ALEX Active MEDROL 4 MG ORAL TABLET THERAPY PACK 6 pills on day 1, 5 pills on day 2, 4 pills on day 3, 4 pills on day 4, 2 pills on day 5, 1 pill on day 6 METHYLPREDNISOLONE 55385740557 No Longer Active Annita Mejia MD PhD Active ZITHROMAX Z-MARY 250 MG ORAL TABLET 2 today and then 1 daily for 4 days 03/11 AZITHROMYCIN 75799734965 No Longer Active Annita Mejia MD PhD Active GUAIFENESIN-CODEINE 100-10 MG/5ML ORAL SYRUP 5ml every 4 to 6 hours as needed for cough GUAIFENESIN-CODEINE 58936516499 No Longer Active Annita Mejia MD PhD Active FLONASE 50 MCG/ACT NASAL SUSPENSION 1 spray each nostril am and hs FLUTICASONE PROPIONATE 51442336051 No Longer Active Kendell Coronado MD Active MELOXICAM 15 MG ORAL TABLET 1 po q day for pain with food MELOXICAM 67605040999 No Longer Active Kendell Coronado MD Active HYDROCODONE-ACETAMINOPHEN 5-325 MG ORAL TABLET 1-2 q 4-6 hrs prn pain 20 tabs HYDROCODONE-ACETAMINOPHEN 03136449075 No Longer Active Daniele Mcfadden DO Active PREDNISONE 20 MG ORAL TABLET 1 tablet twice daily for 2 days, then 1 tablet once daily for 2 days PREDNISONE 34696583379 No Longer Active Daniele Mcfadden DO Active PREDNISONE 20 MG ORAL TABLET 1 po bid 2 days, then daily for 2 days PREDNISONE 20463593222 No Longer Active Alexander LOPEZ Active AZITHROMYCIN 250 MG ORAL TABLET 2 po qd x 1 day, then 1 po qd x 4 days 08/05 AZITHROMYCIN 60782985118 No Longer Active Daniele Mcfadden DO Active MUCINEX MAXIMUM STRENGTH TABLET EXTENDED RELEASE 12 HOUR 1 po qd GUAIFENESIN [id number] 47654824381 No Longer Active Daniele Mcfadden DO Active AZITHROMYCIN 250 MG ORAL TABLET 2 po qd x 1 day, then 1 po qd x 4 days 11/26 AZITHROMYCIN 09477359958 No Longer Active Margarito Kelley MD Active MUCINEX MAXIMUM STRENGTH TABLET EXTENDED RELEASE 12 HOUR 1 po qd MUCINEX MAXIMUM STRENGTH TABLET EXTENDED RELEASE 12 HOUR GUAIFENESIN [id number] Inactive PREDNISONE 20 MG ORAL TABLET 1 po bid 2 days, then daily for 2 days PREDNISONE 20 MG ORAL TABLET 465568 PREDNISONE Inactive PREDNISONE 20 MG ORAL TABLET 1 tablet twice daily for 2 days, then 1 tablet once daily for 2 days PREDNISONE 20 MG ORAL TABLET 031006 PREDNISONE Inactive HYDROCODONE-ACETAMINOPHEN 5-325 MG ORAL TABLET 1-2 q 4-6 hrs prn pain 20 tabs HYDROCODONE-ACETAMINOPHEN 5-325 MG ORAL TABLET 415960 HYDROCODONE-ACETAMINOPHEN Inactive MELOXICAM 15 MG ORAL TABLET 1 po q day for pain with food MELOXICAM 15 MG ORAL TABLET 870252 MELOXICAM Inactive FLONASE 50 MCG/ACT NASAL SUSPENSION 1 spray each nostril am and hs FLONASE 50 MCG/ACT NASAL SUSPENSION 0451856 FLUTICASONE PROPIONATE Inactive GUAIFENESIN-CODEINE 100-10 MG/5ML ORAL SYRUP 5ml every 4 to 6 hours as needed for cough GUAIFENESIN-CODEINE 100-10 MG/5ML ORAL SYRUP 175600 GUAIFENESIN-CODEINE Inactive ZITHROMAX Z-MARY 250 MG ORAL TABLET 2 today and then 1 daily for 4 days 03/11 ZITHROMAX Z-MARY 250 MG ORAL TABLET 411015 AZITHROMYCIN Inactive CEFTIN 500 MG ORAL TABLET 1 tablet by mouth twice daily for ten days. CEFTIN 500 MG ORAL TABLET 292404 CEFUROXIME AXETIL Inactive PROAIR HFA 108 (90 [...] CONGESTION TABLET EXTENDED RELEASE 12 HOUR FEXOFENADINE-PSEUDOEPHEDRINE [id number] Inactive PREDNISONE 20 MG ORAL TABLET 1 tablet twice daily for 2 days, then 1 tablet once daily for 2 days PREDNISONE 20 MG ORAL TABLET 627523 PREDNISONE Inactive GUAIFENESIN ER 600 MG ORAL TABLET EXTENDED RELEASE 12 HOUR 1 twice a day as needed for congestion GUAIFENESIN ER 600 MG ORAL TABLET EXTENDED RELEASE 12 HOUR GUAIFENESIN Inactive FLUTICASONE PROPIONATE 50 MCG/ACT NASAL SUSPENSION 1 to 2 sprays each nostril daily FLUTICASONE PROPIONATE 50 MCG/ACT NASAL SUSPENSION 6840054 FLUTICASONE PROPIONATE Inactive MUCINEX D 60-600 MG ORAL TABLET EXTENDED RELEASE 12 HOUR 1 po BID PRN Congestion MUCINEX D 60-600 MG ORAL TABLET EXTENDED RELEASE 12 HOUR PSEUDOEPHEDRINE-GUAIFENESIN Inactive AZITHROMYCIN 250 MG ORAL TABLET 2 po qd x 1 day, then 1 po qd x 4 days 11/26 AZITHROMYCIN 250 MG ORAL TABLET 685631 AZITHROMYCIN Inactive AZITHROMYCIN 250 MG ORAL TABLET 2 po qd x 1 day, then 1 po qd x 4 days 08/05 AZITHROMYCIN 250 MG ORAL TABLET 380945 AZITHROMYCIN Inactive MEDROL 4 MG ORAL TABLET THERAPY PACK 6 pills on day 1, 5 pills on day 2, 4 pills on day 3, 4 pills on day 4, 2 pills on day 5, 1 pill on day 6 MEDROL 4 MG ORAL TABLET THERAPY PACK 689943 METHYLPREDNISOLONE Inactive CEPHALEXIN 500 MG ORAL CAPSULE 1 tablet by mouth three times daily for ten days CEPHALEXIN 500 MG ORAL CAPSULE 910865 CEPHALEXIN Inactive PREDNISONE 20 MG ORAL TABLET 2 tabs daily for 3 days, 1 tab daily for 3 days, 1/2 tab daily for 2 days PREDNISONE 20 MG ORAL TABLET 512182 PREDNISONE Inactive CEFDINIR 300 MG ORAL CAPSULE 1 cap by mouth twice a day CEFDINIR 300 MG ORAL CAPSULE 859604 CEFDINIR Inactive PREDNISONE 20 MG ORAL TABLET 2 tabs daily for 3 days, 1 tab daily for 3 days, 1/2 tab daily for 2 days PREDNISONE 20 MG ORAL TABLET 269701 PREDNISONE Inactive PREDNISONE 20 MG ORAL TABLET 2 tabs daily for 3 days, 1 tab daily for 3 days, 1/2 tab daily for 2 days PREDNISONE 20 MG ORAL TABLET 610955 PREDNISONE Inactive CEFDINIR 300 MG ORAL CAPSULE by mouth twice a day CEFDINIR 300 MG ORAL CAPSULE 112730 CEFDINIR Inactive PREDNISONE 20 MG ORAL TABLET 2 tabs daily for 3 days, 1 tab daily for 3 days, 1/2 tab daily for 2 days PREDNISONE 20 MG ORAL TABLET 007571 PREDNISONE Inactive CEFDINIR 300 MG ORAL CAPSULE 1 po BID x 10 days CEFDINIR 300 MG ORAL CAPSULE 394200 CEFDINIR Inactive AZITHROMYCIN 250 MG ORAL TABLET 2 po qd x 1 day, then 1 po qd x 4 days 08/30 AZITHROMYCIN 250 MG ORAL TABLET 034038 AZITHROMYCIN Inactive PREDNISONE 20 MG ORAL TABLET 2 tabs daily for 3 days, 1 tab daily for 3 days, 1/2 tab daily for 2 days start tomorrow 07/31/16 PREDNISONE 20 MG ORAL TABLET 933050 PREDNISONE Inactive Immunizations Vaccine Administration Date Value Standard Description Seasonal influenza vaccine, injectable, containing preservative, for > 3 years old (Afluria, FluLaval, Fluzone, Fluvirin, Fluarix, Agriflu(>=18 yo)) Fluzone (>3 yrs.) [[id number]] Influenza, seasonal, injectable Human Papillomavirus vaccine (Gardasil) #2, (HPV #2) Gardasil [ [id number]] human papilloma virus vaccine, quadrivalent Human Papillomavirus Vaccine (Gardasil) #1 Given (HPV #1) Gardasil [CVX62] human papilloma virus vaccine, quadrivalent hepatitis A immunization #2 Havrix-Pedi hepatitis A vaccine, unspecified formulation Boostrix (Tetanus toxoid, reduced diphtheria toxoid and acellular pertussis vaccine, adsorbed), booster Boostrix [[id number]] tetanus toxoid, reduced diphtheria toxoid, and acellular [...] Negative;Positive Encounters Code Encounter Date Provider Facility CPT-67480 Level 3 Est. Patient 17:42:49 TECHNOLOGY INFUSION SPECIALIST [facility] Patient 10:49:47 TECHNOLOGY INFUSION SPECIALIST Griselda Horvath [facility] CPT-06148 Level 3 Est. Patient 08:43:59 TECHNOLOGY INFUSION SPECIALIST Jessika Nunes [facility] CPT-20198 Level 3 Est. Patient 09:05:19 TECHNOLOGY INFUSION SPECIALIST Griselda Horvath [facility] CPT-82098 Level 3 Est. Patient 15:45:46 CDT Griselda Horvath [facility] CPT-49124 Level 3 Est. Patient 14:15:52 CDT Daniele W Bogdan [facility] CPT-03037 Level 3 Est. Patient 13:57:19 TECHNOLOGY INFUSION SPECIALIST Margarito Kelley MD [facility] CPT-04613 Level 3 Est. Patient 09:16:05 TECHNOLOGY INFUSION SPECIALIST Margarito Kelley MD [facility] CPT-70717 Level 3 Est. Patient 15:37:06 TECHNOLOGY INFUSION SPECIALIST Daniele Mcfadden [facility] CPT-27949 Level 3 Est. Patient 11:56:34 TECHNOLOGY INFUSION SPECIALIST Renée Adames APRN [facility] CPT-51266 Level 3 Est. Patient 12:19:42 CDT Daniele Mcfadden [facility] CPT-26080 Level 3 Est. Patient 11:08:45 CDT Annita Mejia MD [facility] CPT-74722 Level 3 Est. Patient 12:00:17 CDT Kendell Coronado MD [facility] CPT-05152 Level 3 Est. Patient 12:27:25 CDT Daniele Mcfadden [facility] CPT-47878 Level 3 Est. Patient 18:45:11 TECHNOLOGY INFUSION SPECIALIST Daniele Mcfadden [facility] CPT-94731 Level 3 Est. Patient 10:12:24 TECHNOLOGY INFUSION SPECIALIST Daniele Mcfadden [facility] CPT-36797 Level 3 Est. Patient 14:35:11 TECHNOLOGY INFUSION SPECIALIST Daniele Mcfadden [facility] CPT-99853 Level 3 Est. Patient 14:11:04 CDT Daniele Mcfadden [facility] CPT-45789 Level 3 Est. Patient 10:52:13 CDT Alexander LOPEZ [facility] CPT-61987 Level 3 Est. Patient 11:01:08 TECHNOLOGY INFUSION SPECIALIST Daniele Mcfadden [facility] CPT-17939 Level 3 Est. Patient 10:55:35 CDT Daniele Mcfadden [facility] CPT-46958 Level 3 Est. Patient 14:03:08 CDT Daniele Mcfadden [facility] CPT-96543 Level 3 Est. Patient 11:26:19 CDT Margarito Kelley MD [facility] CPT-83501 Level 2 Est. Patient 15:32:04 TECHNOLOGY INFUSION SPECIALIST Daniele Mcfadden [facility] CPT-97217 Level 3 Est. Patient 16:01:26 TECHNOLOGY INFUSION SPECIALIST Daniele Mcfadden [facility] CPT-02557 Level 3 Est. Patient 06:37:10 TECHNOLOGY INFUSION SPECIALIST Daniele Mcfadden [facility] Procedures Code Procedure Name Date Entry Date Standard Description CPT-60755 Addl Vx - Ix admin via ID IM or jet injects without counseling by physician 14:37:19 CDT CPT-65452 Meningococcal B, recombinant vaccine 14:37:19 CDT 03/05 CPT-96799 First Vx - Ix admin via ID IM or jet injects without counseling by physician 14:37:19 CDT CPT-86629 Menveo Intramuscular Solution Reconstituted 14:37:19 CDT CPT-49210 Meningococcal Conjugate Vacine (Menactra) 11:20:04 CDT CPT-73540 Throat Culture - LAB USE ONLY 12:15:45 TECHNOLOGY INFUSION SPECIALIST CPT-62524 Shani Flu A/B - LAB USE ONLY 12:15:45 TECHNOLOGY INFUSION SPECIALIST CPT-59957 Rapid Strep (Reflex throat) - LAB USE ONLY 12:15:45 TECHNOLOGY INFUSION SPECIALIST CPT-08280 Rapid Strep (Grp A) - LAB USE ONLY 13:06:06 CDT CPT-76118 Abd compl w upright 12:34:39 CDT CPT-77859 Immunization Single Admin 11:38:41 CDT CPT-83103 Fluzone Quadrivalent Intramuscular Suspension 0.5 ML 11: 38:41 CDT CPT-OV Office Visit 14:45:12 TECHNOLOGY INFUSION SPECIALIST CPT-23649 [employer]d [employer] inc all organs plus proximal aorta and distal IVC 2012 12:13:02 TECHNOLOGY INFUSION SPECIALIST CPT-22732 Abd compl w upright 15:12:58 TECHNOLOGY INFUSION SPECIALIST CPT-85551 Venipuncture Draw Fee 14:38:32 TECHNOLOGY INFUSION SPECIALIST CPT-47630 Administration single or combination vaccine inc oral 17 :10:04 CDT CPT-21187 Gardasil 17:10:04 CDT CPT-25160 Venipuncture Draw Fee 16:07:54 TECHNOLOGY INFUSION SPECIALIST CPT-74186 Administration 2+ single or combination vaccines inc oral 17:22:02 CDT CPT-28318 Administration single or combination vaccine inc oral 17 :22:02 CDT CPT-49159 Influenza split virus > age 3 17:22:02 CDT CPT-89663 Gardasil 17:22:02 CDT CPT-96980 Administration 2+ single or combination vaccines inc oral 14:38:31 CDT CPT-39966 Administration single or combination vaccine inc oral 14 :38:31 CDT CPT-80248 Meningococcal Conjugate Vacine (Menactra) 14:38:31 CDT CPT-57585 Gardasil 14:38:31 CDT
--- OUTSIDE RECORDS SUMMARY | 2018-02-15 06:59 | XMS REPORT | Clinical Summary ---
Author Author Admin, OLEG Organization [facility] Address Unknown Phone Unavailable Allergies, Adverse [...] Upper respiratory infection, viral 465.9 Active Margarito Kleley MD Acute upper respiratory infections of unspecified site Sinusitis 473.9 Active Griselda Horvath TELEMARKETING AGENT Unspecified sinusitis (chronic) Eustachian tube dysfunction, right [...] Status Provider Patient Instruction GUAIFENESIN 600 MG [id number] 1 twice a day as needed for congestion GUAIFENESIN 88523050745 Active Jillina Frazell TELEMARKETING AGENT Active FLUTICASONE PROPIONATE 50 MCG/ACT SUSP 1 to 2 sprays each nostril daily 03/20 FLUTICASONE PROPIONATE 72381129060 Active Jillina Frazell TELEMARKETING AGENT Active CEFDINIR 300 MG CAPS by mouth twice a day CEFDINIR 48089722079 No Longer Active Jillina Frazell TELEMARKETING AGENT Active PREDNISONE 20 MG TAB 1 tablet twice daily for 2 days, then 1 tablet once daily for 2 days PREDNISONE 78122743200 No Longer Active Jillina Frazell TELEMARKETING AGENT Active PREDNISONE 20 MG TAB 2 tabs daily for 3 days, 1 tab daily for 3 days, 1/2 tab daily for 2 days PREDNISONE 30208606739 No Longer Active Margarito Kelley MD Active IRVING-D ALLERGY & CONGESTION [id number] 1 po bid FEXOFENADINE-PSEUDOEPHEDRINE [id number] No Longer Active Margarito Kelley MD Active PREDNISONE 20 MG TAB 2 tabs daily for 3 days, 1 tab daily for 3 days, 1/2 tab daily for 2 days PREDNISONE 77818517231 No Longer Active Jillina Frazell TELEMARKETING AGENT Active CEFDINIR 300 MG CAPS 1 cap by mouth twice a day CEFDINIR 50873939260 No Longer Active Jillina Frazell TELEMARKETING AGENT Active E-Z SPACER ERIBERTO use with proair inhalier every 4 times as need. SPACER/AERO-HOLDING CHAMBERS 87990959564 No Longer Active Jillina Frazell TELEMARKETING AGENT Active PROAIR HFA 108 (90 BASE) MCG/ACT AERS 2 puffs every 4 hours as needed 2014 ALBUTEROL SULFATE 49047816043 No Longer Active Jillina Frazell TELEMARKETING AGENT Active CEFTIN 500 MG TAB 1 tablet by mouth twice daily for ten days. CEFUROXIME AXETIL 04615109975 No Longer Active Jillina Frazell TELEMARKETING AGENT Active PREDNISONE 20 MG TAB 2 tabs daily for 3 days, 1 tab daily for 3 days, 1/2 tab daily for 2 days PREDNISONE 26773229859 No Longer Active Margarito Kelley MD Active CEPHALEXIN 500 MG CAPS 1 tablet by mouth three times daily for ten days 06/25 CEPHALEXIN 06908525438 No Longer Active Renée Adames ALEX Active MEDROL (MARY) 4 MG TABS 6 pills on day 1, 5 pills on day 2, 4 pills on day 3, 4 pills on day 4, 2 pills on day 5, 1 pill on day 6 METHYLPREDNISOLONE 41066737660 No Longer Active Annita Mejia MD PhD Active ZITHROMAX Z-MARY 250 MG TABS 2 today and then 1 daily for 4 days AZITHROMYCIN 36147792086 No Longer Active Annita Mejia MD PhD Active GUAIFENESIN-CODEINE 100-10 MG/5ML SYRP 5ml every 4 to 6 hours as needed for cough GUAIFENESIN-CODEINE 89686257503 No Longer Active Annita Mejia MD PhD Active FLONASE 50 MCG/ACT SUSP 1 spray each nostril am and hs FLUTICASONE PROPIONATE 76179517349 No Longer Active Kendell Coronado MD Active MELOXICAM 15 MG TABS 1 po q day for pain with food MELOXICAM 06201231819 No Longer Active Kendell Coronado MD Active HYDROCODONE-ACETAMINOPHEN 5-325 MG TABS 1-2 q 4-6 hrs prn pain 20 tabs 07/04 HYDROCODONE-ACETAMINOPHEN 00921534637 No Longer Active Daniele Mcfadden DO Active PREDNISONE 20 MG TAB 1 tablet twice daily for 2 days, then 1 tablet once daily for 2 days PREDNISONE 93061073777 No Longer Active Daniele Mcfadden DO Active PREDNISONE 20 MG TAB 1 po bid 2 days, then daily for 2 days 12/27 PREDNISONE 09613406998 No Longer Active Alexander LOPEZ Active AZITHROMYCIN 250 MG TABS 2 po qd x 1 day, then 1 po qd x 4 days AZITHROMYCIN 94468265839 No Longer Active Daniele Mcfadden DO Active MUCINEX MAXIMUM STRENGTH EL23G-TWO 1 po qd GUAIFENESIN XR12H- TAB 23191139988 No Longer Active Daniele Mcfadden DO Active AZITHROMYCIN 250 MG TABS 2 po qd x 1 day, then 1 po qd x 4 days AZITHROMYCIN 65541781526 No Longer Active Margarito Kelley MD Active MUCINEX MAXIMUM STRENGTH [id number] 1 po qd MUCINEX MAXIMUM STRENGTH OP00A-GGR GUAIFENESIN [id number]-HQZ Inactive PREDNISONE 20 MG TAB 1 po bid 2 days, then daily for 2 days 12/27 PREDNISONE 20 MG TAB 075180 PREDNISONE Inactive PREDNISONE 20 MG TAB 1 tablet twice daily for 2 days, then 1 tablet once daily for 2 days PREDNISONE 20 MG TAB 160605 PREDNISONE Inactive HYDROCODONE-ACETAMINOPHEN 5-325 MG TABS 1-2 q 4-6 hrs prn pain 20 tabs 07/04 HYDROCODONE-ACETAMINOPHEN 5-325 MG TABS 842634 HYDROCODONE- ACETAMINOPHEN Inactive MELOXICAM 15 MG TABS 1 po q day for pain with food MELOXICAM 15 MG TABS 964124 MELOXICAM Inactive FLONASE 50 MCG/ACT SUSP 1 spray each nostril am and hs FLONASE 50 MCG/ACT SUSP FLUTICASONE PROPIONATE Inactive GUAIFENESIN-CODEINE 100-10 MG/5ML SYRP 5ml every 4 to 6 hours as needed for cough GUAIFENESIN-CODEINE 100-10 MG/5ML SYRP 457646 GUAIFENESIN-CODEINE Inactive ZITHROMAX Z-MARY 250 MG TABS 2 today and then 1 daily for 4 days ZITHROMAX Z-MARY 250 MG TABS 1366434 AZITHROMYCIN Inactive CEFTIN 500 MG TAB 1 tablet by mouth twice daily for ten days. CEFTIN 500 MG TAB 143107 CEFUROXIME AXETIL Inactive PROAIR HFA 108 (90 BASE) MCG/ACT AERS 2 puffs every 4 hours as needed 2014 PROAIR HFA 108 (90 BASE) MCG/ACT AERS ALBUTEROL SULFATE Inactive E-Z SPACER ERIBERTO use with proair inhalier every 4 times as need. E-Z SPACER ERIBERTO SPACER/AERO-HOLDING CHAMBERS Inactive IRVING-D ALLERGY & CONGESTION [id number]-[id number] 1 po bid IRVING-D ALLERGY & CONGESTION [id number] FEXOFENADINE-PSEUDOEPHEDRINE XR12H- TAB Inactive PREDNISONE 20 MG TAB 1 tablet twice daily for 2 days, then 1 tablet once daily for 2 days PREDNISONE 20 MG TAB 587357 PREDNISONE Inactive AZITHROMYCIN 250 MG TABS 2 po qd x 1 day, then 1 po qd x 4 days AZITHROMYCIN 250 MG TABS 0623019 AZITHROMYCIN Inactive AZITHROMYCIN 250 MG TABS 2 po qd x 1 day, then 1 po qd x 4 days AZITHROMYCIN 250 MG TABS 8424540 AZITHROMYCIN Inactive MEDROL (MARY) 4 MG TABS 6 pills on day 1, 5 pills on day 2, 4 pills on day 3, 4 pills on day 4, 2 pills on day 5, 1 pill on day 6 MEDROL (MARY) 4 MG TABS 703884 METHYLPREDNISOLONE Inactive CEPHALEXIN 500 MG CAPS 1 tablet by mouth three times daily for ten days 06/25 CEPHALEXIN 500 MG CAPS 508262 CEPHALEXIN Inactive PREDNISONE 20 MG TAB 2 tabs daily for 3 days, 1 tab daily for 3 days, 1/2 tab daily for 2 days PREDNISONE 20 MG TAB 055687 PREDNISONE Inactive CEFDINIR 300 MG CAPS 1 cap by mouth twice a day CEFDINIR 300 MG CAPS 689468 CEFDINIR Inactive PREDNISONE 20 MG TAB 2 tabs daily for 3 days, 1 tab daily for 3 days, 1/2 tab daily for 2 days PREDNISONE 20 MG TAB 749363 PREDNISONE Inactive PREDNISONE 20 MG TAB 2 tabs daily for 3 days, 1 tab daily for 3 days, 1/2 tab daily for 2 days PREDNISONE 20 MG TAB 483028 PREDNISONE Inactive CEFDINIR 300 MG CAPS by mouth twice a day CEFDINIR 300 MG CAPS 471392 CEFDINIR Inactive Immunizations Vaccine Administration Date Value Standard Description Seasonal influenza vaccine, injectable, containing preservative, for > 3 years old (Afluria, FluLaval, Fluzone, Fluvirin, Fluarix, Agriflu(>=18 yo)) Fluzone (>3 yrs.) [IDE338] Influenza, seasonal, injectable Human Papillomavirus vaccine (Gardasil) #2, (HPV #2) Gardasil [ CVX62] human papilloma virus vaccine, quadrivalent Human Papillomavirus Vaccine (Gardasil) #1 Given (HPV #1) Gardasil [CVX62] human papilloma virus vaccine, quadrivalent hepatitis A immunization #2 Havrix-Pedi hepatitis A vaccine, unspecified formulation Boostrix (Tetanus toxoid, reduced diphtheria toxoid and acellular pertussis vaccine, adsorbed), booster Boostrix [VFG232] tetanus toxoid, reduced diphtheria toxoid, and acellular [...] Negative Encounters Code Encounter Date Provider Facility CPT-94956 Level 3 Est. Patient 15:45:46 CDT Griselda Horvath [facility]-80268 Level 3 Est. Patient 14:15:52 CDT Daniele Mcfadden [facility]-86995 Level 3 Est. Patient 13:57:19 ROOFING LABORER Margarito Kelley MD [facility]-46932 Level 3 Est. Patient 09:16:05 ROOFING LABORER Margarito Kelley MD [facility]-41622 Level 3 Est. Patient 15:37:06 ROOFING LABORER Daniele Mcfadden [facility] CPT-58660 Level 3 Est. Patient 11:56:34 ROOFING LABORER Renée Adames [facility] CPT-86856 Level 3 Est. Patient 12:19:42 CDT Daniele Mcfadden [facility] CPT-36136 Level 3 Est. Patient 11:08:45 CDT Annita Mejia MD PhD [facility] CPT-83676 Level 3 Est. Patient 12:00:17 CDT Knedell Coronado MD [facility]-11176 Level 3 Est. Patient 12:27:25 CDT Daniele Mcfadden [facility] CPT-50864 Level 3 Est. Patient 18:45:11 ROOFING LABORER Daniele Mcfadden [facility] CPT-37859 Level 3 Est. Patient 10:12:24 ROOFING LABORER Daniele Mcfadden [facility] CPT-47385 Level 3 Est. Patient 14:35:11 ROOFING LABORER Daniele Mcfadden [facility] CPT-89549 Level 3 Est. Patient 14:11:04 CDT Daniele Mcfadden [facility] CPT-77830 Level 3 Est. Patient 10:52:13 CDT Alexander LOPEZ [facility] CPT-40832 Level 3 Est. Patient 11:01:08 ROOFING LABORER Daniele Mcfadden [facility] CPT-54553 Level 3 Est. Patient 10:55:35 CDT Daniele Mcfadden [facility] CPT-36837 Level 3 Est. Patient 14:03:08 CDT Daniele Mcfadden [facility] CPT-39712 Level 3 Est. Patient 11:26:19 CDT Margarito Kelley MD [facility] CPT-62079 Level 2 Est. Patient 15:32:04 ROOFING LABORER Daniele Mcfadden [facility] CPT-16077 Level 3 Est. Patient 16:01:26 ROOFING LABORER Daniele Mcfadden [facility] CPT-81646 Level 3 Est. Patient 06:37:10 ROOFING LABORER Daniele Mcfadden [facility] Procedures Code Procedure Name Date Entry Date Standard Description CPT-87896 Rapid Strep (Grp A) - LAB USE ONLY 13:06:06 CDT CPT-13543 Abd compl w upright 12:34:39 CDT CPT-24514 Immunization Single Admin 11:38:41 CDT CPT-32391 Fluzone Quadrivalent Intramuscular Suspension 0.5 ML 11: 38:41 CDT CPT-OV Office Visit 14:45:12 ROOFING LABORER CPT-52653 [employer] all organs plus proximal aorta and distal IVC 2012 12:13:02 ROOFING LABORER CPT-71269 Abd compl w upright 15:12:58 ROOFING LABORER CPT-78145 Venipuncture Draw Fee 14:38:32 ROOFING LABORER CPT-48136 Administration single or combination vaccine inc oral 17 :10:04 CDT CPT-23954 Gardasil 17:10:04 CDT CPT-30791 Venipuncture Draw Fee 16:07:54 ROOFING LABORER CPT-34108 Administration 2+ single or combination vaccines inc oral 17:22:02 CDT CPT-95581 Administration single or combination vaccine inc oral 17 :22:02 CDT CPT-16870 Influenza split virus > age 3 17:22:02 CDT CPT-18633 Gardasil 17:22:02 CDT CPT-47429 Administration 2+ single or combination vaccines inc oral 14:38:31 CDT CPT-73790 Administration single or combination vaccine inc oral 14 :38:31 CDT CPT-48905 Meningococcal Conjugate Vacine (Menactra) 14:38:31 CDT CPT-15951 Gardasil 14:38:31 CDT
--- OUTSIDE RECORDS SUMMARY | 2018-02-15 07:00 | XMS REPORT | Clinical Summary ---
Author Author Admin, [employer] Organization [employer] Address Unknown Phone Unavailable Allergies, Adverse Reactions, [...] muscle, nontraumatic Abdominal pain 789.00 Correction Errol Pakc MD Abdominal pain, unspecified site Biliary dyskinesia [...] unspecified site Sinusitis 473.9 Active Griselda Horvath [employer] Unspecified sinusitis (chronic) Eustachian tube dysfunction, right 381.81 Active Margarito Kelley MD Dysfunction of Eustachian tube Pharyngitis-Acute 462 Active Daniele Mcfadden DO Acute pharyngitis URI 465.9 Active Griselda Horvath [employer] Acute upper respiratory infections of unspecified site Allergic rhinitis 477.9 Active Jessika Nunes [employer] Allergic rhinitis, cause unspecified Acute rhinosinusitis 461.9 Active Jessika Nunes [employer] Acute sinusitis, unspecified ALLERGIC RHINITIS ICD-477.9 Inactive [...] Provider Patient Instruction MUCINEX D 60-600 MG [id number] 1 po BID PRN Congestion PSEUDOEPHEDRINE-GUAIFENESIN [id number] No Longer Active Jessika Wythe [employer] Active CEFDINIR 300 MG CAPS 1 po BID x 10 days CEFDINIR 51969711999 No Longer Active Jillina Frazell [employer] Active PREDNISONE 20 MG TAB 2 tabs daily for 3 days, 1 tab daily for 3 days, 1/2 tab daily for 2 days PREDNISONE [id number] No Longer Active Jillina Frazell [employer] Active FLUTICASONE PROPIONATE 50 MCG/ACT SUSP 1 to 2 sprays each nostril daily 03/20 FLUTICASONE PROPIONATE 07383092650 No Longer Active Jillina Frazell [employer] Active GUAIFENESIN 600 MG [id number] 1 twice a day as needed for congestion GUAIFENESIN 30958985682 No Longer Active Jillina Frazell [employer] Active CEFDINIR 300 MG CAPS by mouth twice a day CEFDINIR 04611942785 No Longer Active Jillina Frazell [employer] Active PREDNISONE 20 MG TAB 1 tablet twice daily for 2 days, then 1 tablet once daily for 2 days PREDNISONE 91443577932 No Longer Active Jillina Frazell [employer] Active PREDNISONE 20 MG TAB 2 tabs daily for 3 days, 1 tab daily for 3 days, 1/2 tab daily for 2 days PREDNISONE 73597563989 No Longer Active Margarito Kelley MD Active IRVING-D ALLERGY & CONGESTION [id number] 1 po bid FEXOFENADINE-PSEUDOEPHEDRINE [id number] 67330630060 No Longer Active Margarito Kelley MD Active PREDNISONE 20 MG TAB 2 tabs daily for 3 days, 1 tab daily for 3 days, 1/2 tab daily for 2 days PREDNISONE 09837056559 No Longer Active Jillina Frazell [employer] Active CEFDINIR 300 MG CAPS 1 cap by mouth twice a day CEFDINIR 67651270631 No Longer Active Jillina Frazell [employer] Active E-Z SPACER ERIBERTO use with proair inhalier every 4 times as need. SPACER/AERO-HOLDING CHAMBERS 04740445419 No Longer Active Jillina Frazell [employer] Active PROAIR HFA 108 (90 BASE) MCG/ACT AERS 2 puffs every 4 hours as needed 2014 ALBUTEROL SULFATE 49478178243 No Longer Active Jillina Frazell [employer] Active CEFTIN 500 MG TAB 1 tablet by mouth twice daily for ten days. CEFUROXIME AXETIL 14883943204 No Longer Active Ezekielllina Framarkl [employer] Active PREDNISONE 20 MG TAB 2 tabs daily for 3 days, 1 tab daily for 3 days, 1/2 tab daily for 2 days PREDNISONE 77130179914 No Longer Active Margarito Kelley MD Active CEPHALEXIN 500 MG CAPS 1 tablet by mouth three times daily for ten days 06/25 CEPHALEXIN 85321633871 No Longer Active Renée Adames APRN Active MEDROL (MARY) 4 MG TABS 6 pills on day 1, 5 pills on day 2, 4 pills on day 3, 4 pills on day 4, 2 pills on day 5, 1 pill on day 6 METHYLPREDNISOLONE 31082293407 No Longer Active Annita Mejia MD PhD Active ZITHROMAX Z-MARY 250 MG TABS 2 today and then 1 daily for 4 days AZITHROMYCIN 26346288112 No Longer Active Annita Mejia MD PhD Active GUAIFENESIN-CODEINE 100-10 MG/5ML SYRP 5ml every 4 to 6 hours as needed for cough GUAIFENESIN-CODEINE 77684441040 No Longer Active Annita Mejia MD PhD Active FLONASE 50 MCG/ACT SUSP 1 spray each nostril am and hs FLUTICASONE PROPIONATE 26369228241 No Longer Active Kendell Coronado MD Active MELOXICAM 15 MG TABS 1 po q day for pain with food MELOXICAM 08478433725 No Longer Active Kendell Coronado MD Active HYDROCODONE-ACETAMINOPHEN 5-325 MG TABS 1-2 q 4-6 hrs prn pain 20 tabs 07/04 HYDROCODONE-ACETAMINOPHEN 50856891385 No Longer Active Daniele Mcfadden DO Active PREDNISONE 20 MG TAB 1 tablet twice daily for 2 days, then 1 tablet once daily for 2 days PREDNISONE 55449145186 No Longer Active Daniele Mcfadden DO Active PREDNISONE 20 MG TAB 1 po bid 2 days, then daily for 2 days 12/27 PREDNISONE 84648783073 No Longer Active Alexander LOPEZ Active AZITHROMYCIN 250 MG TABS 2 po qd x 1 day, then 1 po qd x 4 days AZITHROMYCIN 21904927287 No Longer Active Daniele Mcfadden DO Active MUCINEX MAXIMUM STRENGTH [id number]-EUT 1 po qd GUAIFENESIN XR12H- TAB 56533786023 No Longer Active Daniele Mcfadden DO Active AZITHROMYCIN 250 MG TABS 2 po qd x 1 day, then 1 po qd x 4 days AZITHROMYCIN 28740426805 No Longer Active Margarito Kelley MD Active MUCINEX MAXIMUM STRENGTH [id number] 1 po qd MUCINEX MAXIMUM STRENGTH [id number] GUAIFENESIN [id number]-SPH Inactive PREDNISONE 20 MG TAB 1 po bid 2 days, then daily for 2 days 12/27 PREDNISONE 20 MG TAB 907052 PREDNISONE Inactive PREDNISONE 20 MG TAB 1 tablet twice daily for 2 days, then 1 tablet once daily for 2 days PREDNISONE 20 MG TAB 833038 PREDNISONE Inactive HYDROCODONE-ACETAMINOPHEN 5-325 MG TABS 1-2 q 4-6 hrs prn pain 20 tabs 07/04 HYDROCODONE-ACETAMINOPHEN 5-325 MG TABS 695981 HYDROCODONE- ACETAMINOPHEN Inactive MELOXICAM 15 MG TABS 1 po q day for pain with food MELOXICAM 15 MG TABS 625557 MELOXICAM Inactive FLONASE 50 MCG/ACT SUSP 1 spray each nostril am and hs FLONASE 50 MCG/ACT SUSP FLUTICASONE PROPIONATE Inactive GUAIFENESIN-CODEINE 100-10 MG/5ML SYRP 5ml every 4 to 6 hours as needed for cough GUAIFENESIN-CODEINE 100-10 MG/5ML SYRP 770090 GUAIFENESIN-CODEINE Inactive ZITHROMAX Z-MARY 250 MG TABS 2 today and then 1 daily for 4 days ZITHROMAX Z-MARY 250 MG TABS 8222667 AZITHROMYCIN Inactive CEFTIN 500 MG TAB 1 tablet by mouth twice daily for ten days. CEFTIN 500 MG TAB 537923 CEFUROXIME AXETIL Inactive PROAIR HFA 108 (90 BASE) MCG/ACT AERS 2 puffs every 4 hours as needed 2014 PROAIR HFA 108 (90 BASE) MCG/ACT AERS ALBUTEROL SULFATE Inactive E-Z SPACER ERIBERTO use with proair inhalier every 4 times as need. E-Z SPACER ERIBERTO SPACER/AERO-HOLDING CHAMBERS Inactive IRVING-D ALLERGY & CONGESTION [id number] 1 po bid IRVING-D ALLERGY & CONGESTION [id number] FEXOFENADINE-PSEUDOEPHEDRINE XR12H- TAB Inactive PREDNISONE 20 MG TAB 1 tablet twice daily for 2 days, then 1 tablet once daily for 2 days PREDNISONE 20 MG TAB 065383 PREDNISONE Inactive GUAIFENESIN 600 MG [id number] 1 twice a day as needed for congestion GUAIFENESIN 600 MG NQ61C-OHP GUAIFENESIN Inactive FLUTICASONE PROPIONATE 50 MCG/ACT SUSP 1 to 2 sprays each nostril daily 03/20 FLUTICASONE PROPIONATE 50 MCG/ACT SUSP 3079876 FLUTICASONE PROPIONATE Inactive MUCINEX D 60-600 MG [id number] 1 po BID PRN Congestion MUCINEX D 60-600 MG [id number] PSEUDOEPHEDRINE-GUAIFENESIN Inactive AZITHROMYCIN 250 MG TABS 2 po qd x 1 day, then 1 po qd x 4 days AZITHROMYCIN 250 MG TABS 1588345 AZITHROMYCIN Inactive AZITHROMYCIN 250 MG TABS 2 po qd x 1 day, then 1 po qd x 4 days AZITHROMYCIN 250 MG TABS 8188651 AZITHROMYCIN Inactive MEDROL (MARY) 4 MG TABS 6 pills on day 1, 5 pills on day 2, 4 pills on day 3, 4 pills on day 4, 2 pills on day 5, 1 pill on day 6 MEDROL (MARY) 4 MG TABS 054848 METHYLPREDNISOLONE Inactive CEPHALEXIN 500 MG CAPS 1 tablet by mouth three times daily for ten days 06/25 CEPHALEXIN 500 MG CAPS 701112 CEPHALEXIN Inactive PREDNISONE 20 MG TAB 2 tabs daily for 3 days, 1 tab daily for 3 days, 1/2 tab daily for 2 days PREDNISONE 20 MG TAB 169013 PREDNISONE Inactive CEFDINIR 300 MG CAPS 1 cap by mouth twice a day CEFDINIR 300 MG CAPS 238152 CEFDINIR Inactive PREDNISONE 20 MG TAB 2 tabs daily for 3 days, 1 tab daily for 3 days, 1/2 tab daily for 2 days PREDNISONE 20 MG TAB 028471 PREDNISONE Inactive PREDNISONE 20 MG TAB 2 tabs daily for 3 days, 1 tab daily for 3 days, 1/2 tab daily for 2 days PREDNISONE 20 MG TAB 293695 PREDNISONE Inactive CEFDINIR 300 MG CAPS by mouth twice a day CEFDINIR 300 MG CAPS 225109 CEFDINIR Inactive PREDNISONE 20 MG TAB 2 tabs daily for 3 days, 1 tab daily for 3 days, 1/2 tab daily for 2 days PREDNISONE 20 MG TAB 291808 PREDNISONE Inactive CEFDINIR 300 MG CAPS 1 po BID x 10 days CEFDINIR 300 MG CAPS 781016 CEFDINIR Inactive Immunizations Vaccine Administration Date Value Standard Description Human Papillomavirus vaccine (Gardasil) #2, (HPV #2) Gardasil [ CVX62] human papilloma virus vaccine, quadrivalent Seasonal influenza vaccine, injectable, containing preservative, for > 3 years old (Afluria, FluLaval, Fluzone, Fluvirin, Fluarix, Agriflu(>=18 yo)) Fluzone (>3 yrs.) [LVO521] Influenza, seasonal, injectable Human Papillomavirus Vaccine (Gardasil) #1 Given (HPV #1) Gardasil [CVX62] human papilloma virus vaccine, quadrivalent hepatitis A immunization #2 Havrix-Pedi hepatitis A vaccine, unspecified formulation Boostrix (Tetanus toxoid, reduced diphtheria toxoid and acellular pertussis vaccine, adsorbed), booster Boostrix [WDU755] tetanus toxoid, reduced diphtheria toxoid, and acellular [...] Negative Encounters Code Encounter Date Provider Facility CPT-64675 Level 3 Est. Patient 08:43:59 [employer] TECH[employer] Jessika Nunes [facility] CPT-92620 Level 3 Est. Patient 09:05:19 [employer] TECHNICIAN Griselda Horvath [facility] CPT-33323 Level 3 Est. Patient 15:45:46 CDT Griselda Horvath [facility] CPT-12225 Level 3 Est. Patient 14:15:52 CDT Daniele Mcfadden [facility] CPT-57130 Level 3 Est. Patient 13:57:19 [employer] TECHNICIAN Margarito Kelley MD [facility] CPT-96949 Level 3 Est. Patient 09:16:05 [employer] TECHNICIAN Margarito Kelley MD [facility] CPT-64222 Level 3 Est. Patient 15:37:06 [employer] TECHNICIAN Daniele Mcfadden [facility] CPT-95546 Level 3 Est. Patient 11:56:34 [employer] TECHNICIAN Renée Adames [facility] CPT-83499 Level 3 Est. Patient 12:19:42 CDT Daniele Mcfadden [facility] CPT-48754 Level 3 Est. Patient 11:08:45 CDT Annita Mejia MD [facility] CPT-72358 Level 3 Est. Patient 12:00:17 CDT Kendell Coronado MD [facility] CPT-36604 Level 3 Est. Patient 12:27:25 CDT Daniele Mcfadden [facility] CPT-12915 Level 3 Est. Patient 18:45:11 [employer] TECHNICIAN Daniele Mcfadden [facility] CPT-89428 Level 3 Est. Patient 10:12:24 [employer] TECHNICIAN Daniele Mcfadden [facility] CPT-57664 Level 3 Est. Patient 14:35:11 [employer] TECHNICIAN Daniele Mcfadden [facility] CPT-81370 Level 3 Est. Patient 14:11:04 CDT Daniele Mcfadden [facility] CPT-92222 Level 3 Est. Patient 10:52:13 CDT Alexander LOPEZ [facility] CPT-44308 Level 3 Est. Patient 11:01:08 [employer] TECHNICIAN Dnaiele Mcfadden [facility] CPT-78270 Level 3 Est. Patient 10:55:35 CDT Daniele Mcfadden [facility] CPT-43117 Level 3 Est. Patient 14:03:08 CDT Daniele Mcfadden [facility] CPT-25632 Level 3 Est. Patient 11:26:19 CDT Margarito Kelley MD [facility] CPT-14686 Level 2 Est. Patient 15:32:04 [employer] TECHNICIAN Daniele Mcfadden [facility] CPT-86434 Level 3 Est. Patient 16:01:26 [employer] TECHNICIAN Daniele Mcfadden [facility] CPT-52149 Level 3 Est. Patient 06:37:10 [employer] TECHNICIAN Daniele Mcfadden [facility] Procedures Code Procedure Name Date Entry Date Standard Description CPT-30752 Rapid Strep (Grp A) - LAB USE ONLY 13:06:06 CDT CPT-05940 Abd compl w upright 12:34:39 CDT CPT-93938 Immunization Single Admin 11:38:41 CDT CPT-95106 Fluzone Quadrivalent Intramuscular Suspension 0.5 ML 11: 38:41 CDT CPT-OV Office Visit 14:45:12 [employer] TECHNICIAN CPT-22676 [employer] all organs plus proximal aorta and distal IVC 2012 12:13:02 [employer] TECHNICIAN CPT-97077 Abd compl w upright 15:12:58 [employer] TECHNICIAN CPT-10358 Venipuncture Draw Fee 14:38:32 [employer] TECHNICIAN CPT-59925 Administration single or combination vaccine inc oral 17 :10:04 CDT CPT-45952 Gardasil 17:10:04 CDT CPT-00548 Venipuncture Draw Fee 16:07:54 [employer] TECHNICIAN CPT-63193 Administration 2+ single or combination vaccines inc oral 17:22:02 CDT CPT-14623 Administration single or combination vaccine inc oral 17 :22:02 CDT CPT-28613 Influenza split virus > age 3 17:22:02 CDT CPT-38956 Gardasil 17:22:02 CDT CPT-37502 Administration 2+ single or combination vaccines inc oral 14:38:31 CDT CPT-76866 Administration single or combination vaccine inc oral 14 :38:31 CDT CPT-21360 Meningococcal Conjugate Vacine (Menactra) 14:38:31 CDT CPT-88268 Gardasil 14:38:31 CDT
--- OUTSIDE RECORDS SUMMARY | 2018-02-15 07:01 | XMS REPORT | Clinical Summary ---
Author Author Admin, Ludmila Organization [facility] Address Unknown Phone [...] Brandan BOWMAN Pharyngitis-Acute ICD-462 Inactive Katie Gipson VIDEO GAME ENGINEER URI ICD-465.9 Inactive Katie Gipson COLBY Allergic rhinitis ICD-477.9 Inactive Katie Gipson VIDEO GAME ENGINEER Acute rhinosinusitis ICD-461.9 Inactive Katie Gipson VIDEO GAME ENGINEER Fever ICD-780.60 Inactive Katie Gipsonfredrick FAIRBANKSN Immunization due ICD-V15.83 Inactive Katie Gipson VIDEO GAME ENGINEER Medication List Medication Instructions Start Date Stop Date Generic Name NDC Status Provider Patient Instruction PREDNISONE 20 MG ORAL TABLET two tabs by mouth today, then one tab by mouth days two and three PREDNISONE 28751677756 Active Daniele Mcfadden DO Active AZITHROMYCIN 250 MG ORAL TABLET 2 po qd x 1 day, then 1 po qd x 4 days 07/24 AZITHROMYCIN 20066715208 Active Daniele Mcfadden DO Active IRVING-D ALLERGY & CONGESTION 60-120 MG ORAL TABLET EXTENDED RELEASE 12 HOUR 1 tablet twice daily as needed for congestion/allergies FEXOFENADINE-PSEUDOEPHEDRINE 40000157493 Active Holly Sharma Active PREDNISONE 20 MG ORAL TABLET 2 tabs daily for 3 days, 1 tab daily for 3 days, 1/2 tab daily for 2 days start tomorrow 07/31/16 PREDNISONE 06284316396 No Longer Active Jillina Alexandru JOHNSON Active AZITHROMYCIN 250 MG ORAL TABLET 2 po qd x 1 day, then 1 po qd x 4 days 08/30 AZITHROMYCIN 92185431996 No Longer Active Ezekielllina Alexandru JOHNSON Active MUCINEX D 60-600 MG ORAL TABLET EXTENDED RELEASE 12 HOUR 1 po BID PRN Congestion PSEUDOEPHEDRINE-GUAIFENESIN 89114744821 No Longer Active Jessika Nunes APRN Active CEFDINIR 300 MG ORAL CAPSULE 1 po BID x 10 days CEFDINIR 70169194691 No Longer Active Jillina Alexandru JOHNSON Active PREDNISONE 20 MG ORAL TABLET 2 tabs daily for 3 days, 1 tab daily for 3 days, 1/2 tab daily for 2 days PREDNISONE 92120580493 No Longer Active Jillina Frazell [employer]ANDER AND BUFFER Active FLUTICASONE PROPIONATE 50 MCG/ACT NASAL SUSPENSION 1 to 2 sprays each nostril daily FLUTICASONE PROPIONATE 87258829736 No Longer Active Jillina Frazell [employer]ANDER [employer] BUFFER Active GUAIFENESIN ER 600 MG ORAL TABLET EXTENDED RELEASE 12 HOUR 1 twice a day as needed for congestion GUAIFENESIN 79131224421 No Longer Active Jillina Frazell [employer]ANDER [employer] BUFFER Active CEFDINIR 300 MG ORAL CAPSULE by mouth twice a day CEFDINIR 21263062173 No Longer Active Jillina Frazell [employer]ER [employer] BUFFER Active PREDNISONE 20 MG ORAL TABLET 1 tablet twice daily for 2 days, then 1 tablet once daily for 2 days PREDNISONE 23304370012 No Longer Active Jillina Frazell [employer]ER [employer] BUFFER Active PREDNISONE 20 MG ORAL TABLET 2 tabs daily for 3 days, 1 tab daily for 3 days, 1/2 tab daily for 2 days PREDNISONE 69047665677 No Longer Active Margarito Kelley MD Active IRVING-D ALLERGY & CONGESTION TABLET EXTENDED RELEASE 12 HOUR 1 po bid 05/26 FEXOFENADINE-PSEUDOEPHEDRINE [id number] 30488459203 No Longer Active Margarito Kelley MD Active PREDNISONE 20 MG ORAL TABLET 2 tabs daily for 3 days, 1 tab daily for 3 days, 1/2 tab daily for 2 days PREDNISONE 27907003140 No Longer Active Ezekielllina Framarkl [employer]ANDER [employer] BUFFER Active CEFDINIR 300 MG ORAL CAPSULE 1 cap by mouth twice a day CEFDINIR 87788378267 No Longer Active Jillina Frazell [employer]ANDER AND BUFFER Active E-Z SPACER DEVICE use with proair inhalier every 4 times as need. SPACER/AERO-HOLDING CHAMBERS 70145421447 No Longer Active Jillina Frazell [employer]ANDER AND BUFFER Active PROAIR HFA 108 (90 Base) MCG/ACT INHALATION AEROSOL SOLUTION 2 puffs every 4 hours as needed ALBUTEROL SULFATE 33627315090 No Longer Active Ezekielllina Jiml [employer]ANDER AND BUFFER Active CEFTIN 500 MG ORAL TABLET 1 tablet by mouth twice daily for ten days. CEFUROXIME AXETIL 63282629830 No Longer Active Ezekielllina Alexandru ONTIVEROSN Active PREDNISONE 20 MG ORAL TABLET 2 tabs daily for 3 days, 1 tab daily for 3 days, 1/2 tab daily for 2 days PREDNISONE 38366752480 No Longer Active Margarito Kelley MD Active CEPHALEXIN 500 MG ORAL CAPSULE 1 tablet by mouth three times daily for ten days CEPHALEXIN 82881522202 No Longer Active Renée Adames ALEX Active MEDROL 4 MG ORAL TABLET THERAPY PACK 6 pills on day 1, 5 pills on day 2, 4 pills on day 3, 4 pills on day 4, 2 pills on day 5, 1 pill on day 6 METHYLPREDNISOLONE 65151419337 No Longer Active Annita Mejia MD PhD Active ZITHROMAX Z-MARY 250 MG ORAL TABLET 2 today and then 1 daily for 4 days 03/11 AZITHROMYCIN 03796447329 No Longer Active Annita Mejia MD PhD Active GUAIFENESIN-CODEINE 100-10 MG/5ML ORAL SYRUP 5ml every 4 to 6 hours as needed for cough GUAIFENESIN-CODEINE 48566925133 No Longer Active Annita Mejia MD PhD Active FLONASE 50 MCG/ACT NASAL SUSPENSION 1 spray each nostril am and hs FLUTICASONE PROPIONATE 07700164764 No Longer Active Kendell Coronado MD Active MELOXICAM 15 MG ORAL TABLET 1 po q day for pain with food MELOXICAM 65512523405 No Longer Active Kendell Coronado MD Active HYDROCODONE-ACETAMINOPHEN 5-325 MG ORAL TABLET 1-2 q 4-6 hrs prn pain 20 tabs HYDROCODONE-ACETAMINOPHEN 64994000171 No Longer Active Daniele Mcfadden DO Active PREDNISONE 20 MG ORAL TABLET 1 tablet twice daily for 2 days, then 1 tablet once daily for 2 days PREDNISONE 98704152016 No Longer Active Daniele Mcfadden DO Active PREDNISONE 20 MG ORAL TABLET 1 po bid 2 days, then daily for 2 days PREDNISONE 13970927972 No Longer Active Alexander LOPEZ Active AZITHROMYCIN 250 MG ORAL TABLET 2 po qd x 1 day, then 1 po qd x 4 days 08/05 AZITHROMYCIN 86200749180 No Longer Active Daniele Mcfadden DO Active MUCINEX MAXIMUM STRENGTH TABLET EXTENDED RELEASE 12 HOUR 1 po qd GUAIFENESIN [id number] 21571756911 No Longer Active Daniele Mcfadden DO Active AZITHROMYCIN 250 MG ORAL TABLET 2 po qd x 1 day, then 1 po qd x 4 days 11/26 AZITHROMYCIN 54778049643 No Longer Active Margarito Kelley MD Active MUCINEX MAXIMUM STRENGTH TABLET EXTENDED RELEASE 12 HOUR 1 po qd MUCINEX MAXIMUM STRENGTH TABLET EXTENDED RELEASE 12 HOUR GUAIFENESIN [id number] Inactive PREDNISONE 20 MG ORAL TABLET 1 po bid 2 days, then daily for 2 days PREDNISONE 20 MG ORAL TABLET 966836 PREDNISONE Inactive PREDNISONE 20 MG ORAL TABLET 1 tablet twice daily for 2 days, then 1 tablet once daily for 2 days PREDNISONE 20 MG ORAL TABLET 947853 PREDNISONE Inactive HYDROCODONE-ACETAMINOPHEN 5-325 MG ORAL TABLET 1-2 q 4-6 hrs prn pain 20 tabs HYDROCODONE-ACETAMINOPHEN 5-325 MG ORAL TABLET 643112 HYDROCODONE-ACETAMINOPHEN Inactive MELOXICAM 15 MG ORAL TABLET 1 po q day for pain with food MELOXICAM 15 MG ORAL TABLET 482530 MELOXICAM Inactive FLONASE 50 MCG/ACT NASAL SUSPENSION 1 spray each nostril am and hs FLONASE 50 MCG/ACT NASAL SUSPENSION 4943552 FLUTICASONE PROPIONATE Inactive GUAIFENESIN-CODEINE 100-10 MG/5ML ORAL SYRUP 5ml every 4 to 6 hours as needed for cough GUAIFENESIN-CODEINE 100-10 MG/5ML ORAL SYRUP 409050 GUAIFENESIN-CODEINE Inactive ZITHROMAX Z-MARY 250 MG ORAL TABLET 2 today and then 1 daily for 4 days 03/11 ZITHROMAX Z-MARY 250 MG ORAL TABLET 647613 AZITHROMYCIN Inactive CEFTIN 500 MG ORAL TABLET 1 tablet by mouth twice daily for ten days. CEFTIN 500 MG ORAL TABLET 360233 CEFUROXIME AXETIL Inactive PROAIR HFA 108 (90 [...] CONGESTION TABLET EXTENDED RELEASE 12 HOUR FEXOFENADINE-PSEUDOEPHEDRINE [id number] Inactive PREDNISONE 20 MG ORAL TABLET 1 tablet twice daily for 2 days, then 1 tablet once daily for 2 days PREDNISONE 20 MG ORAL TABLET 321701 PREDNISONE Inactive GUAIFENESIN ER 600 MG ORAL TABLET EXTENDED RELEASE 12 HOUR 1 twice a day as needed for congestion GUAIFENESIN ER 600 MG ORAL TABLET EXTENDED RELEASE 12 HOUR GUAIFENESIN Inactive FLUTICASONE PROPIONATE 50 MCG/ACT NASAL SUSPENSION 1 to 2 sprays each nostril daily FLUTICASONE PROPIONATE 50 MCG/ACT NASAL SUSPENSION 0485741 FLUTICASONE PROPIONATE Inactive MUCINEX D 60-600 MG ORAL TABLET EXTENDED RELEASE 12 HOUR 1 po BID PRN Congestion MUCINEX D 60-600 MG ORAL TABLET EXTENDED RELEASE 12 HOUR PSEUDOEPHEDRINE-GUAIFENESIN Inactive AZITHROMYCIN 250 MG ORAL TABLET 2 po qd x 1 day, then 1 po qd x 4 days 11/26 AZITHROMYCIN 250 MG ORAL TABLET 745214 AZITHROMYCIN Inactive AZITHROMYCIN 250 MG ORAL TABLET 2 po qd x 1 day, then 1 po qd x 4 days 08/05 AZITHROMYCIN 250 MG ORAL TABLET 098807 AZITHROMYCIN Inactive MEDROL 4 MG ORAL TABLET THERAPY PACK 6 pills on day 1, 5 pills on day 2, 4 pills on day 3, 4 pills on day 4, 2 pills on day 5, 1 pill on day 6 MEDROL 4 MG ORAL TABLET THERAPY PACK 392707 METHYLPREDNISOLONE Inactive CEPHALEXIN 500 MG ORAL CAPSULE 1 tablet by mouth three times daily for ten days CEPHALEXIN 500 MG ORAL CAPSULE 661699 CEPHALEXIN Inactive PREDNISONE 20 MG ORAL TABLET 2 tabs daily for 3 days, 1 tab daily for 3 days, 1/2 tab daily for 2 days PREDNISONE 20 MG ORAL TABLET 155666 PREDNISONE Inactive CEFDINIR 300 MG ORAL CAPSULE 1 cap by mouth twice a day CEFDINIR 300 MG ORAL CAPSULE 737226 CEFDINIR Inactive PREDNISONE 20 MG ORAL TABLET 2 tabs daily for 3 days, 1 tab daily for 3 days, 1/2 tab daily for 2 days PREDNISONE 20 MG ORAL TABLET 280478 PREDNISONE Inactive PREDNISONE 20 MG ORAL TABLET 2 tabs daily for 3 days, 1 tab daily for 3 days, 1/2 tab daily for 2 days PREDNISONE 20 MG ORAL TABLET 227979 PREDNISONE Inactive CEFDINIR 300 MG ORAL CAPSULE by mouth twice a day CEFDINIR 300 MG ORAL CAPSULE 502409 CEFDINIR Inactive PREDNISONE 20 MG ORAL TABLET 2 tabs daily for 3 days, 1 tab daily for 3 days, 1/2 tab daily for 2 days PREDNISONE 20 MG ORAL TABLET 867804 PREDNISONE Inactive CEFDINIR 300 MG ORAL CAPSULE 1 po BID x 10 days CEFDINIR 300 MG ORAL CAPSULE 258907 CEFDINIR Inactive AZITHROMYCIN 250 MG ORAL TABLET 2 po qd x 1 day, then 1 po qd x 4 days 08/30 AZITHROMYCIN 250 MG ORAL TABLET 838402 AZITHROMYCIN Inactive PREDNISONE 20 MG ORAL TABLET 2 tabs daily for 3 days, 1 tab daily for 3 days, 1/2 tab daily for 2 days start tomorrow 07/31/16 PREDNISONE 20 MG ORAL TABLET 810516 PREDNISONE Inactive Immunizations Vaccine Administration Date Value Standard Description Human Papillomavirus vaccine (Gardasil) #2, (HPV #2) Gardasil [ CVX62] human papilloma virus vaccine, quadrivalent Seasonal influenza vaccine, injectable, containing preservative, for > 3 years old (Afluria, FluLaval, Fluzone, Fluvirin, Fluarix, Agriflu(>=18 yo)) Fluzone (>3 yrs.) [[id number]] Influenza, seasonal, injectable Human Papillomavirus Vaccine (Gardasil) #1 Given (HPV #1) Gardasil [CVX62] human papilloma virus vaccine, quadrivalent hepatitis A immunization #2 Havrix-Pedi hepatitis A vaccine, unspecified formulation Boostrix (Tetanus toxoid, reduced diphtheria toxoid and acellular pertussis vaccine, adsorbed), booster Boostrix [[id number]] tetanus toxoid, reduced diphtheria toxoid, and acellular [...] Negative;Positive Encounters Code Encounter Date Provider Facility CPT-78809 Level 3 Est. Patient 17:42:49 [facility] Level [facility] Est. Patient 10:49:47 INDUSTRIAL STAFF NURSE Griselda Horvath [facility] CPT-06045 Level 3 Est. Patient 08:43:59 INDUSTRIAL STAFF NURSE Jessika Nunes [facility] CPT-54489 Level 3 Est. Patient 09:05:19 INDUSTRIAL STAFF NURSE Griselda Horvath [facility] CPT-77954 Level 3 Est. Patient 15:45:46 CDT Griselda Horvath [facility] CPT-26600 Level 3 Est. Patient 14:15:52 CDT Daniele W Bogdan [facility] CPT-57643 Level 3 Est. Patient 13:57:19 INDUSTRIAL STAFF NURSE Margarito Kelley MD [facility] CPT-35733 Level 3 Est. Patient 09:16:05 INDUSTRIAL STAFF NURSE Margarito Kelley MD [facility] CPT-96456 Level 3 Est. Patient 15:37:06 INDUSTRIAL STAFF NURSE Daniele Mcfadden [facility] CPT-68655 Level 3 Est. Patient 11:56:34 INDUSTRIAL STAFF NURSE Renée Adames APRN [facility] CPT-07839 Level 3 Est. Patient 12:19:42 CDT Daniele Mcfadden [facility] CPT-21983 Level 3 Est. Patient 11:08:45 CDT Annita Mejia MD [facility] CPT-91641 Level 3 Est. Patient 12:00:17 CDT Kendell Coronado MD [facility] CPT-84073 Level 3 Est. Patient 12:27:25 CDT Daniele Mcfadden [facility] CPT-12342 Level 3 Est. Patient 18:45:11 INDUSTRIAL STAFF NURSE Daniele Mcfadden [facility] CPT-19795 Level 3 Est. Patient 10:12:24 INDUSTRIAL STAFF NURSE Daniele Mcfadden [facility] CPT-34775 Level 3 Est. Patient 14:35:11 INDUSTRIAL STAFF NURSE Daniele Mcfadden [facility] CPT-17003 Level 3 Est. Patient 14:11:04 CDT Daniele Mcfadden [facility] CPT-02245 Level 3 Est. Patient 10:52:13 CDT Alexander LOPEZ [facility] CPT-26998 Level 3 Est. Patient 11:01:08 INDUSTRIAL STAFF NURSE Daniele Mcfadden [facility] CPT-36937 Level 3 Est. Patient 10:55:35 CDT Daniele Mcfadden [facility] CPT-04809 Level 3 Est. Patient 14:03:08 CDT Daniele Mcfadden [facility] CPT-02427 Level 3 Est. Patient 11:26:19 CDT Margarito Kelley MD [facility] CPT-84191 Level 2 Est. Patient 15:32:04 INDUSTRIAL STAFF NURSE Daniele Mcfadden [facility] CPT-01410 Level 3 Est. Patient 16:01:26 INDUSTRIAL STAFF NURSE Daniele Mcfadden [facility] CPT-54767 Level 3 Est. Patient 06:37:10 INDUSTRIAL STAFF NURSE Daniele Mcfadden [facility] Procedures Code Procedure Name Date Entry Date Standard Description CPT-16322 Addl Vx - Ix admin via ID IM or jet injects without counseling by physician 14:37:19 CDT CPT-08261 Meningococcal B, recombinant vaccine 14:37:19 CDT 03/05 CPT-16427 First Vx - Ix admin via ID IM or jet injects without counseling by physician 14:37:19 CDT CPT-62520 Menveo Intramuscular Solution Reconstituted 14:37:19 CDT CPT-59109 Meningococcal Conjugate Vacine (Menactra) 11:20:04 CDT CPT-47052 Throat Culture - LAB USE ONLY 12:15:45 INDUSTRIAL STAFF NURSE CPT-23781 Shani Flu A/B - LAB USE ONLY 12:15:45 INDUSTRIAL STAFF NURSE CPT-77597 Rapid Strep (Reflex throat) - LAB USE ONLY 12:15:45 INDUSTRIAL STAFF NURSE CPT-49510 Rapid Strep (Grp A) - LAB USE ONLY 13:06:06 CDT CPT-57759 Abd compl w upright 12:34:39 CDT CPT-45542 Immunization Single Admin 11:38:41 CDT CPT-48474 Fluzone Quadrivalent Intramuscular Suspension 0.5 ML 11: 38:41 CDT CPT-OV Office Visit 14:45:12 INDUSTRIAL STAFF NURSE CPT-94152 Sono abd com inc all organs plus proximal aorta and distal IVC 2012 12:13:02 INDUSTRIAL STAFF NURSE CPT-11689 Abd compl w upright 15:12:58 INDUSTRIAL STAFF NURSE CPT-48845 Venipuncture Draw Fee 14:38:32 INDUSTRIAL STAFF NURSE CPT-96086 Administration single or combination vaccine inc oral 17 :10:04 CDT CPT-87154 Gardasil 17:10:04 CDT CPT-60175 Venipuncture Draw Fee 16:07:54 INDUSTRIAL STAFF NURSE CPT-78337 Administration 2+ single or combination vaccines inc oral 17:22:02 CDT CPT-31364 Administration single or combination vaccine inc oral 17 :22:02 CDT CPT-95904 Influenza split virus > age 3 17:22:02 CDT CPT-02819 Gardasil 17:22:02 CDT CPT-52665 Administration 2+ single or combination vaccines inc oral 14:38:31 CDT CPT-16427 Administration single or combination vaccine inc oral 14 :38:31 CDT CPT-84464 Meningococcal Conjugate Vacine (Menactra) 14:38:31 CDT CPT-45064 Gardasil 14:38:31 CDT
--- OUTSIDE RECORDS SUMMARY | 2018-02-15 07:02 | XMS REPORT | Clinical Summary ---
Author Author Admin, OLEG Organization [employer] Address Unknown Phone Unavailable Allergies, Adverse Reactions, [...] MD Biliary dyskinesia ICD-575.8 Inactive Katie Gipson PHARMACY OPERATIONS SPECIALIST U R I ICD-465.9 Inactive Daniele Mcfadden [...] tube dysfunction, right ICD-381.81 Inactive Katie Gipson PHARMACY OPERATIONS SPECIALIST Pharyngitis-Acute ICD-462 Inactive Katie Gipson PHARMACY OPERATIONS SPECIALIST URI ICD-465.9 Inactive Katie Gipson PHARMACY OPERATIONS SPECIALIST Allergic rhinitis ICD-477.9 Inactive Katie Gipson PHARMACY OPERATIONS SPECIALIST Acute rhinosinusitis ICD-461.9 Inactive Katie Brandan BOWMAN Fever ICD-780.60 Inactive Katie Brandan [facility] Immunization due ICD-V15.83 Inactive Katie Brandan BOWMAN Pharyngitis-Acute ICD-462 Inactive Daniele Mcfadden DO U R I ICD-465.9 Inactive Holly Sharma Medication List Medication Instructions Start Date Stop Date Generic Name NDC Status Provider Patient Instruction PREDNISONE 20 MG ORAL TABLET 2 tabs by mouth today, then 1 tab tomorrow 08/30 PREDNISONE [id number] No Longer Active Daniele Mcfadden DO Active FLUTICASONE PROPIONATE 50 MCG/ACT NASAL SUSPENSION 1 spray each nostril twice daily until bottle empty FLUTICASONE PROPIONATE 17592337359 Active Daniele Mcfadden DO Active PREDNISONE 10 MG ORAL TABLET 2 TABS BY MOUTH TODAY, THEN 1 TAB BY MOUTH DAYS 2 -5 PREDNISONE [id number] No Longer Active Daniele Mcfadden DO Active PREDNISONE 20 MG ORAL TABLET two tabs by mouth today, then one tab by mouth days two and three PREDNISONE 89800623396 No Longer Active Whitley Hernandez Active AZITHROMYCIN 250 MG ORAL TABLET 2 po qd x 1 day, then 1 po qd x 4 days 07/24 AZITHROMYCIN 23822974976 No Longer Active Daniele Mcfadden DO Active IRVING-D ALLERGY & CONGESTION 60-120 MG ORAL TABLET EXTENDED RELEASE 12 HOUR 1 tablet twice daily as needed for congestion/allergies FEXOFENADINE-PSEUDOEPHEDRINE 28069767374 Active Holly Sharma Active PREDNISONE 20 MG ORAL TABLET 2 tabs daily for 3 days, 1 tab daily for 3 days, 1/2 tab daily for 2 days start tomorrow 07/31/16 PREDNISONE 63086144265 No Longer Active Jillina Frazell COLLEGE ASSOCIATE Active AZITHROMYCIN 250 MG ORAL TABLET 2 po qd x 1 day, then 1 po qd x 4 days 08/30 AZITHROMYCIN 09438362712 No Longer Active Jillina Jiml COLLEGE ASSOCIATE Active MUCINEX D 60-600 MG ORAL TABLET EXTENDED RELEASE 12 HOUR 1 po BID PRN Congestion PSEUDOEPHEDRINE-GUAIFENESIN 82429307241 No Longer Active Jessika Nunes APRN Active CEFDINIR 300 MG ORAL CAPSULE 1 po BID x 10 days CEFDINIR 67501771957 No Longer Active Ezekielllina Alexandru COLLEGE ASSOCIATE Active PREDNISONE 20 MG ORAL TABLET 2 tabs daily for 3 days, 1 tab daily for 3 days, 1/2 tab daily for 2 days PREDNISONE 29253084205 No Longer Active Ezekielllina Jiml COLLEGE ASSOCIATE Active FLUTICASONE PROPIONATE 50 MCG/ACT NASAL SUSPENSION 1 to 2 sprays each nostril daily FLUTICASONE PROPIONATE 33531457072 No Longer Active Ezekielllina Alexandru COLLEGE ASSOCIATE Active GUAIFENESIN ER 600 MG ORAL TABLET EXTENDED RELEASE 12 HOUR 1 twice a day as needed for congestion GUAIFENESIN 76016189045 No Longer Active Ezekielllina Alexandru COLLEGE ASSOCIATE Active CEFDINIR 300 MG ORAL CAPSULE by mouth twice a day CEFDINIR 42463163935 No Longer Active Ezekielllina Alexandru ONTIVEROSN Active PREDNISONE 20 MG ORAL TABLET 1 tablet twice daily for 2 days, then 1 tablet once daily for 2 days PREDNISONE 94637971532 No Longer Active Jillina Jiml COLLEGE ASSOCIATE Active PREDNISONE 20 MG ORAL TABLET 2 tabs daily for 3 days, 1 tab daily for 3 days, 1/2 tab daily for 2 days PREDNISONE 45703627167 No Longer Active Margarito Kelley MD Active IRVING-D ALLERGY & CONGESTION TABLET EXTENDED RELEASE 12 HOUR 1 po bid 05/26 FEXOFENADINE-PSEUDOEPHEDRINE [id number] 01816848563 No Longer Active Margarito Kelley MD Active PREDNISONE 20 MG ORAL TABLET 2 tabs daily for 3 days, 1 tab daily for 3 days, 1/2 tab daily for 2 days PREDNISONE 79810928187 No Longer Active Ezekielllina Fratracey JOHNSON Active CEFDINIR 300 MG ORAL CAPSULE 1 cap by mouth twice a day CEFDINIR 47477308882 No Longer Active Jillina Frazell COLLEGE ASSOCIATE Active E-Z SPACER DEVICE use with proair inhalier every 4 times as need. SPACER/AERO-HOLDING CHAMBERS 57300147599 No Longer Active Jillina Framarkl ALEX Active PROAIR HFA 108 (90 Base) MCG/ACT INHALATION AEROSOL SOLUTION 2 puffs every 4 hours as needed ALBUTEROL SULFATE 62033614412 No Longer Active Ezekielllsd Fernandezl COLLEGE ASSOCIATE Active CEFTIN 500 MG ORAL TABLET 1 tablet by mouth twice daily for ten days. CEFUROXIME AXETIL 91277666759 No Longer Active Griselda Horvath APRN Active PREDNISONE 20 MG ORAL TABLET 2 tabs daily for 3 days, 1 tab daily for 3 days, 1/2 tab daily for 2 days PREDNISONE 73538809450 No Longer Active Margarito Kelley MD Active CEPHALEXIN 500 MG ORAL CAPSULE 1 tablet by mouth three times daily for ten days CEPHALEXIN 85729810214 No Longer Active Renée Adames APRN Active MEDROL 4 MG ORAL TABLET THERAPY PACK 6 pills on day 1, 5 pills on day 2, 4 pills on day 3, 4 pills on day 4, 2 pills on day 5, 1 pill on day 6 METHYLPREDNISOLONE 58157537642 No Longer Active Annita Mejia MD PhD Active ZITHROMAX Z-MARY 250 MG ORAL TABLET 2 today and then 1 daily for 4 days 03/11 AZITHROMYCIN 91993459692 No Longer Active Annita Mejia MD PhD Active GUAIFENESIN-CODEINE 100-10 MG/5ML ORAL SYRUP 5ml every 4 to 6 hours as needed for cough GUAIFENESIN-CODEINE 93552451032 No Longer Active Annita Mejia MD PhD Active FLONASE 50 MCG/ACT NASAL SUSPENSION 1 spray each nostril am and hs FLUTICASONE PROPIONATE 76035542211 No Longer Active Kendell Coronado MD Active MELOXICAM 15 MG ORAL TABLET 1 po q day for pain with food MELOXICAM 16472319316 No Longer Active Kendell Coronado MD Active HYDROCODONE-ACETAMINOPHEN 5-325 MG ORAL TABLET 1-2 q 4-6 hrs prn pain 20 tabs HYDROCODONE-ACETAMINOPHEN 23912173944 No Longer Active Daniele Mcfadden DO Active PREDNISONE 20 MG ORAL TABLET 1 tablet twice daily for 2 days, then 1 tablet once daily for 2 days PREDNISONE 59091514671 No Longer Active Daniele Mcfadden DO Active PREDNISONE 20 MG ORAL TABLET 1 po bid 2 days, then daily for 2 days PREDNISONE 62349719896 No Longer Active Alexander LOPEZ Active AZITHROMYCIN 250 MG ORAL TABLET 2 po qd x 1 day, then 1 po qd x 4 days 08/05 AZITHROMYCIN 29177561587 No Longer Active Daniele Mcfadden DO Active MUCINEX MAXIMUM STRENGTH TABLET EXTENDED RELEASE 12 HOUR 1 po qd GUAIFENESIN [id number] 17132781312 No Longer Active Daniele Mcfadden DO Active AZITHROMYCIN 250 MG ORAL TABLET 2 po qd x 1 day, then 1 po qd x 4 days 11/26 AZITHROMYCIN 59756698457 No Longer Active Margarito Kelley MD Active MUCINEX MAXIMUM STRENGTH TABLET EXTENDED RELEASE 12 HOUR 1 po qd MUCINEX MAXIMUM STRENGTH TABLET EXTENDED RELEASE 12 HOUR GUAIFENESIN [id number] Inactive PREDNISONE 20 MG ORAL TABLET 1 po bid 2 days, then daily for 2 days PREDNISONE 20 MG ORAL TABLET 463604 PREDNISONE Inactive PREDNISONE 20 MG ORAL TABLET 1 tablet twice daily for 2 days, then 1 tablet once daily for 2 days PREDNISONE 20 MG ORAL TABLET 465102 PREDNISONE Inactive HYDROCODONE-ACETAMINOPHEN 5-325 MG ORAL TABLET 1-2 q 4-6 hrs prn pain 20 tabs HYDROCODONE-ACETAMINOPHEN 5-325 MG ORAL TABLET 892832 HYDROCODONE-ACETAMINOPHEN Inactive MELOXICAM 15 MG ORAL TABLET 1 po q day for pain with food MELOXICAM 15 MG ORAL TABLET 812951 MELOXICAM Inactive FLONASE 50 MCG/ACT NASAL SUSPENSION 1 spray each nostril am and hs FLONASE 50 MCG/ACT NASAL SUSPENSION 6087215 FLUTICASONE PROPIONATE Inactive GUAIFENESIN-CODEINE 100-10 MG/5ML ORAL SYRUP 5ml every 4 to 6 hours as needed for cough GUAIFENESIN-CODEINE 100-10 MG/5ML ORAL SYRUP 876976 GUAIFENESIN-CODEINE Inactive ZITHROMAX Z-MARY 250 MG ORAL TABLET 2 today and then 1 daily for 4 days 03/11 ZITHROMAX Z-MARY 250 MG ORAL TABLET 226433 AZITHROMYCIN Inactive CEFTIN 500 MG ORAL TABLET [...] CONGESTION TABLET EXTENDED RELEASE 12 HOUR FEXOFENADINE-PSEUDOEPHEDRINE [id number] Inactive PREDNISONE 20 MG ORAL TABLET 1 tablet twice daily for 2 days, then 1 tablet once daily for 2 days PREDNISONE 20 MG ORAL TABLET 338540 PREDNISONE Inactive GUAIFENESIN ER 600 MG ORAL TABLET EXTENDED RELEASE 12 HOUR 1 twice a day as needed for congestion GUAIFENESIN ER 600 MG ORAL TABLET EXTENDED RELEASE 12 HOUR GUAIFENESIN Inactive FLUTICASONE PROPIONATE 50 MCG/ACT NASAL SUSPENSION 1 to 2 sprays each nostril daily FLUTICASONE PROPIONATE 50 MCG/ACT NASAL SUSPENSION 8485036 FLUTICASONE PROPIONATE Inactive MUCINEX D 60-600 MG ORAL TABLET EXTENDED RELEASE 12 HOUR 1 po BID PRN Congestion MUCINEX D 60-600 MG ORAL TABLET EXTENDED RELEASE 12 HOUR PSEUDOEPHEDRINE-GUAIFENESIN Inactive PREDNISONE 20 MG ORAL TABLET two tabs by mouth today, then one tab by mouth days two and three PREDNISONE 20 MG ORAL TABLET 817199 PREDNISONE Inactive PREDNISONE 10 MG ORAL TABLET 2 TABS BY MOUTH TODAY, THEN 1 TAB BY MOUTH DAYS 2 -5 PREDNISONE 10 MG ORAL TABLET 354395 PREDNISONE Inactive PREDNISONE 20 MG ORAL TABLET 2 tabs by mouth today, then 1 tab tomorrow 08/30 PREDNISONE 20 MG ORAL TABLET 408753 PREDNISONE Inactive AZITHROMYCIN 250 MG ORAL TABLET 2 po qd x 1 day, then 1 po qd x 4 days 11/26 AZITHROMYCIN 250 MG ORAL TABLET 555488 AZITHROMYCIN Inactive AZITHROMYCIN 250 MG ORAL TABLET 2 po qd x 1 day, then 1 po qd x 4 days 08/05 AZITHROMYCIN 250 MG ORAL TABLET 920547 AZITHROMYCIN Inactive MEDROL 4 MG ORAL TABLET THERAPY PACK 6 pills on day 1, 5 pills on day 2, 4 pills on day 3, 4 pills on day 4, 2 pills on day 5, 1 pill on day 6 MEDROL 4 MG ORAL TABLET THERAPY PACK 872941 METHYLPREDNISOLONE Inactive CEPHALEXIN 500 MG ORAL CAPSULE 1 tablet by mouth three times daily for ten days CEPHALEXIN 500 MG ORAL CAPSULE 452225 CEPHALEXIN Inactive PREDNISONE 20 MG ORAL TABLET 2 tabs daily for 3 days, 1 tab daily for 3 days, 1/2 tab daily for 2 days PREDNISONE 20 MG ORAL TABLET 761569 PREDNISONE Inactive CEFDINIR 300 MG ORAL CAPSULE 1 cap by mouth twice a day CEFDINIR 300 MG ORAL CAPSULE 150301 CEFDINIR Inactive PREDNISONE 20 MG ORAL TABLET 2 tabs daily for 3 days, 1 tab daily for 3 days, 1/2 tab daily for 2 days PREDNISONE 20 MG ORAL TABLET 395780 PREDNISONE Inactive PREDNISONE 20 MG ORAL TABLET 2 tabs daily for 3 days, 1 tab daily for 3 days, 1/2 tab daily for 2 days PREDNISONE 20 MG ORAL TABLET 816897 PREDNISONE Inactive CEFDINIR 300 MG ORAL CAPSULE by mouth twice a day CEFDINIR 300 MG ORAL CAPSULE 855023 CEFDINIR Inactive PREDNISONE 20 MG ORAL TABLET 2 tabs daily for 3 days, 1 tab daily for 3 days, 1/2 tab daily for 2 days PREDNISONE 20 MG ORAL TABLET 587864 PREDNISONE Inactive CEFDINIR 300 MG ORAL CAPSULE 1 po BID x 10 days CEFDINIR 300 MG ORAL CAPSULE 127362 CEFDINIR Inactive AZITHROMYCIN 250 MG ORAL TABLET 2 po qd x 1 day, then 1 po qd x 4 days 08/30 AZITHROMYCIN 250 MG ORAL TABLET 409208 AZITHROMYCIN Inactive PREDNISONE 20 MG ORAL TABLET 2 tabs daily for 3 days, 1 tab daily for 3 days, 1/2 tab daily for 2 days start tomorrow 07/31/16 PREDNISONE 20 MG ORAL TABLET 116451 PREDNISONE Inactive AZITHROMYCIN 250 MG ORAL TABLET 2 po qd x 1 day, then 1 po qd x 4 days 07/24 AZITHROMYCIN 250 MG ORAL TABLET 823451 AZITHROMYCIN Inactive Immunizations Vaccine Administration Date Value Standard Description Seasonal influenza vaccine, injectable, containing preservative, for > 3 years old (Afluria, FluLaval, Fluzone, Fluvirin, Fluarix, Agriflu(>=18 yo)) Fluzone (>3 yrs.) [[id number]] Influenza, seasonal, injectable Human Papillomavirus vaccine (Gardasil) #2, (HPV #2) Gardasil [ [id number]] human papilloma virus vaccine, quadrivalent Human Papillomavirus Vaccine (Gardasil) #1 Given (HPV #1) Gardasil [CVX62] human papilloma virus vaccine, quadrivalent hepatitis A immunization #2 Havrix-Pedi hepatitis A vaccine, unspecified formulation Boostrix (Tetanus toxoid, reduced diphtheria toxoid and acellular pertussis vaccine, adsorbed), booster Boostrix [[id number]] tetanus toxoid, reduced diphtheria toxoid, and acellular [...] herndon blood pressure, diastolic 77 mm[Hg] BP hernodn blood pressure, systolic, repeated by physician 113 [...] Negative Encounters Code Encounter Date Provider Facility CPT-59308 Level 3 Est. Patient 16:00:45 CDT Daniele Mcfadden DO [facility] CPT-66409 Level 3 Est. Patient 15:57:40 CDT Daniele [facility] CPT-06692 Level 3 Est. Patient 09:35:49 JUTE BAG CUTTING MACHINE OPERATOR Daniele Mcfadden [facility] CPT-12853 Level 3 Est. Patient 09:35:25 JUTE BAG CUTTING MACHINE OPERATOR Daniele Mcfadden [facility] CPT-29979 Level 3 Est. Patient 16:03:55 JUTE BAG CUTTING MACHINE OPERATOR Whitley Quiroz [facility] CPT-01663 Level 3 Est. Patient 17:42:49 JUTE BAG CUTTING MACHINE OPERATOR Whitley Quiroz [facility] CPT-51092 Level 3 Est. Patient 10:49:47 JUTE BAG CUTTING MACHINE OPERATOR Griselda [facility] CPT-25754 Level 3 Est. Patient 08:43:59 JUTE BAG CUTTING MACHINE OPERATOR Jessika Nunes [facility] CPT-36356 Level 3 Est. Patient 09:05:19 JUTE BAG CUTTING MACHINE OPERATOR Griselda Hor[facility] CPT-12586 Level 3 Est. Patient 15:45:46 CDT Griselda Horvath [facility] CPT-84385 Level 3 Est. Patient 14:15:52 CDT Daniele Mcfadden [facility] CPT-44406 Level 3 Est. Patient 13:57:19 JUTE BAG CUTTING MACHINE OPERATOR Margarito Kelley MD [facility] CPT-18605 Level 3 Est. Patient 09:16:05 JUTE BAG CUTTING MACHINE OPERATOR Margarito Kelley MD [facility] CPT-57260 Level 3 Est. Patient 15:37:06 JUTE BAG CUTTING MACHINE OPERATOR Daniele Mcfadden [facility] CPT-26040 Level 3 Est. Patient 11:56:34 JUTE BAG CUTTING MACHINE OPERATOR Renée Adames [facility] CPT-70148 Level 3 Est. Patient 12:19:42 CDT Daniele Mcfadden [facility] CPT-73422 Level 3 Est. Patient 11:08:45 CDT Annita Mejia MD, PhD [facility] CPT-75968 Level 3 Est. Patient 12:00:17 CDT Kendell Coronado MD [facility] CPT-64853 Level 3 Est. Patient 12:27:25 CDT Daniele Gaetano Bogdan [facility] CPT-49356 Level 3 Est. Patient 18:45:11 JUTE BAG CUTTING MACHINE OPERATOR Daniele Mcfadden [facility] CPT-75423 Level 3 Est. Patient 10:12:24 JUTE BAG CUTTING MACHINE OPERATOR Daniele Mcfadden [facility] CPT-43376 Level 3 Est. Patient 14:35:11 JUTE BAG CUTTING MACHINE OPERATOR Daniele Mcfadden [facility] CPT-78546 Level 3 Est. Patient 14:11:04 CDT Daniele Gaetano Bogdan [facility] CPT-35007 Level 3 Est. Patient 10:52:13 CDT Alexander LOPEZ [facility] CPT-15641 Level 3 Est. Patient 11:01:08 JUTE BAG CUTTING MACHINE OPERATOR Daniele Mcfadden [facility] CPT-75410 Level 3 Est. Patient 10:55:35 CDT Daniele Salter [facility] CPT-92442 Level 3 Est. Patient 14:03:08 CDT Daniele Gaetano Mcfadden [facility] CPT-16259 Level 3 Est. Patient 11:26:19 CDT Margarito Kelley MD [facility] CPT-98026 Level 2 Est. Patient 15:32:04 JUTE BAG CUTTING MACHINE OPERATOR Daniele Mcfadden [facility] CPT-40246 Level 3 Est. Patient 16:01:26 JUTE BAG CUTTING MACHINE OPERATOR Daniele Mcfadden [facility] CPT-28065 Level 3 Est. Patient 06:37:10 JUTE BAG CUTTING MACHINE OPERATOR Daniele Mcfadden [facility] Procedures Code Procedure Name Date Entry Date Standard Description CPT-77831 Addl Vx - Ix admin via ID IM or jet injects without counseling by physician 14:37:19 CDT CPT-92098 Meningococcal B, recombinant vaccine 14:37:19 CDT 03/05 CPT-42230 First Vx - Ix admin via ID IM or jet injects without counseling by physician 14:37:19 CDT CPT-84873 Menveo Intramuscular Solution Reconstituted 14:37:19 CDT CPT-03749 Meningococcal Conjugate Vacine (Menactra) 11:20:04 CDT CPT-54014 Throat Culture - LAB USE ONLY 12:15:45 JUTE BAG CUTTING MACHINE OPERATOR CPT-57934 Misa Flu A/B - LAB USE ONLY 12:15:45 JUTE BAG CUTTING MACHINE OPERATOR CPT-20456 Rapid Strep (Reflex throat) - LAB USE ONLY 12:15:45 JUTE BAG CUTTING MACHINE OPERATOR CPT-88063 Rapid Strep (Grp A) - LAB USE ONLY 13:06:06 CDT CPT-88994 Abd compl w upright 12:34:39 CDT CPT-21603 Immunization Single Admin 11:38:41 CDT CPT-34964 Fluzone Quadrivalent Intramuscular Suspension 0.5 ML 11: 38:41 CDT CPT-OV Office Visit 14:45:12 JUTE BAG CUTTING MACHINE OPERATOR CPT-06766 [employer] all organs plus proximal aorta and distal IVC 2012 12:13:02 JUTE BAG CUTTING MACHINE OPERATOR CPT-10114 Abd compl w upright 15:12:58 JUTE BAG CUTTING MACHINE OPERATOR CPT-68703 Venipuncture Draw Fee 14:38:32 JUTE BAG CUTTING MACHINE OPERATOR CPT-83632 Administration single or combination vaccine inc oral 17 :10:04 CDT CPT-45078 Gardasil 17:10:04 CDT CPT-55107 Venipuncture Draw Fee 16:07:54 JUTE BAG CUTTING MACHINE OPERATOR CPT-09525 Administration 2+ single or combination vaccines inc oral 17:22:02 CDT CPT-13890 Administration single or combination vaccine inc oral 17 :22:02 CDT CPT-43688 Influenza split virus > age 3 17:22:02 CDT CPT-46785 Gardasil 17:22:02 CDT CPT-66166 Administration 2+ single or combination vaccines inc oral 14:38:31 CDT CPT-99418 Administration single or combination vaccine inc oral 14 :38:31 CDT CPT-03357 Meningococcal Conjugate Vacine (Menactra) 14:38:31 CDT CPT-40343 Gardasil 14:38:31 CDT
[2018-02-15 07:03] LABS: BASOPHILS % (AUTO) 0 % (0-10); EOSINOPHILS # (AUTO) 0.1 10^3/uL (0.0-0.3); EOSINOPHILS % (AUTO) 1 % (0-10); HEMATOCRIT 37 % (35-52); HEMOGLOBIN 12.4 G/DL (11.5-16.0); LYMPHOCYTES # (AUTO) 2.1 X 10^3 (1.0-4.0); LYMPHOCYTES % (AUTO) 22 % (12-44); MEAN CORPUSCULAR HEMOGLOBIN 29 PG (25-34); MEAN CORPUSCULAR HGB CONC 34 G/DL (32-36); MEAN CORPUSCULAR VOLUME 85 FL (80-99); MEAN PLATELET VOLUME 11.4 FL (7.4-10.4); MONOCYTES # (AUTO) 0.8 X 10^3 (0.0-1.0); MONOCYTES % (AUTO) 8 % (0-12); NEUTROPHILS # (AUTO) 6.3 X 10^3 (1.8-7.8); NEUTROPHILS % (AUTO) 69 % (42-75); PLATELET COUNT 209 10^3/uL (130-400); RED CELL DISTRIBUTION WIDTH 12.6 % (10.0-14.5); WHITE BLOOD COUNT 9.2 10^3/uL (4.3-11.0)
--- OUTSIDE RECORDS SUMMARY | 2018-02-15 07:03 | XMS REPORT | Clinical Summary ---
Author Author Admin, [employer] Organization [employer] Address Unknown Phone Unavailable Allergies, Adverse Reactions, [...] multiple sites Pharyngitis, acute 462 Resolved Margarito Kleley MD Acute pharyngitis Knee pain, left 719.46 [...] respiratory infection, viral ICD-465.9 Inactive Katie Gipson AUDIT MACHINE OPERATOR Sinusitis ICD-473.9 Inactive Katie Gipson AUDIT MACHINE OPERATOR 2017 Eustachian tube dysfunction, right ICD-381.81 Inactive Katie Gipson AUDIT MACHINE OPERATOR Pharyngitis-Acute ICD-462 Inactive Katie Gipson AUDIT MACHINE OPERATOR URI ICD-465.9 Inactive Katie Gipson AUDIT MACHINE OPERATOR Allergic rhinitis ICD-477.9 Inactive Katie Gipson AUDIT MACHINE OPERATOR Acute rhinosinusitis ICD-461.9 Inactive Katie Gipson AUDIT MACHINE OPERATOR Fever ICD-780.60 Inactive Katie Gipson AUDIT MACHINE OPERATOR Immunization due ICD-V15.83 Inactive Katie Gipson AUDIT MACHINE OPERATOR Abdominal pain ICD-789.00 Inactive Kendell Coronado MD U R I ICD-465.9 Inactive Holly Sharma Medication List Medication Instructions Start Date Stop Date Generic Name NDC Status Provider Patient Instruction FLUTICASONE PROPIONATE 50 MCG/ACT NASAL SUSPENSION 1 spray each nostril twice daily until bottle empty FLUTICASONE PROPIONATE 32070458836 Active Daniele Mcfadden DO Active PREDNISONE 20 MG ORAL TABLET 2 tabs by mouth today, then 1 tab tomorrow 08/30 PREDNISONE 31652423085 Active Daniele Mcfadden DO Active PREDNISONE 10 MG ORAL TABLET 2 TABS BY MOUTH TODAY, THEN 1 TAB BY MOUTH DAYS 2 -5 PREDNISONE 83768579970 No Longer Active Daniele Mcfadden DO Active PREDNISONE 20 MG ORAL TABLET two tabs by mouth today, then one tab by mouth days two and three PREDNISONE 60529326097 No Longer Active Whitley Hernandez Active AZITHROMYCIN 250 MG ORAL TABLET 2 po qd x 1 day, then 1 po qd x 4 days 07/24 AZITHROMYCIN 02601024773 No Longer Active Daniele Mcfadden DO Active IRVING-D ALLERGY & CONGESTION 60-120 MG ORAL TABLET EXTENDED RELEASE 12 HOUR 1 tablet twice daily as needed for congestion/allergies FEXOFENADINE-PSEUDOEPHEDRINE 63391035880 Active Holly Shrama Active PREDNISONE 20 MG ORAL TABLET 2 tabs daily for 3 days, 1 tab daily for 3 days, 1/2 tab daily for 2 days start tomorrow 07/31/16 PREDNISONE 55131573250 No Longer Active Jillsd Borgeszelyue JOHNSON Active AZITHROMYCIN 250 MG ORAL TABLET 2 po qd x 1 day, then 1 po qd x 4 days 08/30 AZITHROMYCIN 17281055066 No Longer Active Jillina Frazell CLEANER INDUSTRIAL Active MUCINEX D 60-600 MG ORAL TABLET EXTENDED RELEASE 12 HOUR 1 po BID PRN Congestion PSEUDOEPHEDRINE-GUAIFENESIN 75926676076 No Longer Active Jessika Nunes APRN Active CEFDINIR 300 MG ORAL CAPSULE 1 po BID x 10 days CEFDINIR 84618875551 No Longer Active Griselda Horvath APRN Active PREDNISONE 20 MG ORAL TABLET 2 tabs daily for 3 days, 1 tab daily for 3 days, 1/2 tab daily for 2 days PREDNISONE 90449720163 No Longer Active Ezekielllina Alexandru ONTIVEROSN Active FLUTICASONE PROPIONATE 50 MCG/ACT NASAL SUSPENSION 1 to 2 sprays each nostril daily FLUTICASONE PROPIONATE 47372492521 No Longer Active Griselda Horvath APRN Active GUAIFENESIN ER 600 MG ORAL TABLET EXTENDED RELEASE 12 HOUR 1 twice a day as needed for congestion GUAIFENESIN 95341672754 No Longer Active Griselda Horvath APRN Active CEFDINIR 300 MG ORAL CAPSULE by mouth twice a day CEFDINIR 13508348059 No Longer Active Griselda Horvath APRN Active PREDNISONE 20 MG ORAL TABLET 1 tablet twice daily for 2 days, then 1 tablet once daily for 2 days PREDNISONE 64386997957 No Longer Active Griselda Horvath APRN Active PREDNISONE 20 MG ORAL TABLET 2 tabs daily for 3 days, 1 tab daily for 3 days, 1/2 tab daily for 2 days PREDNISONE 21142350459 No Longer Active Margarito Kelley MD Active IRVING-D ALLERGY & CONGESTION TABLET EXTENDED RELEASE 12 HOUR 1 po bid 05/26 FEXOFENADINE-PSEUDOEPHEDRINE [id number] 28103660015 No Longer Active Margarito Kelley MD Active PREDNISONE 20 MG ORAL TABLET 2 tabs daily for 3 days, 1 tab daily for 3 days, 1/2 tab daily for 2 days PREDNISONE 17932375780 No Longer Active Ezekielllsd Horvath APRN Active CEFDINIR 300 MG ORAL CAPSULE 1 cap by mouth twice a day CEFDINIR 27454769251 No Longer Active Ezekielllsd Horvath APRN Active E-Z SPACER DEVICE use with proair inhalier every 4 times as need. SPACER/AERO-HOLDING CHAMBERS 54166058068 No Longer Active Griselda Horvath APRN Active PROAIR HFA 108 (90 Base) MCG/ACT INHALATION AEROSOL SOLUTION 2 puffs every 4 hours as needed ALBUTEROL SULFATE 01235276085 No Longer Active Griselda Horvath APRN Active CEFTIN 500 MG ORAL TABLET 1 tablet by mouth twice daily for ten days. CEFUROXIME AXETIL 86012530758 No Longer Active Griselda Horvath APRN Active PREDNISONE 20 MG ORAL TABLET 2 tabs daily for 3 days, 1 tab daily for 3 days, 1/2 tab daily for 2 days PREDNISONE 32069017908 No Longer Active Margarito Kelley MD Active CEPHALEXIN 500 MG ORAL CAPSULE 1 tablet by mouth three times daily for ten days CEPHALEXIN 98853033327 No Longer Active Renée Adames APRN Active MEDROL 4 MG ORAL TABLET THERAPY PACK 6 pills on day 1, 5 pills on day 2, 4 pills on day 3, 4 pills on day 4, 2 pills on day 5, 1 pill on day 6 METHYLPREDNISOLONE 21373703091 No Longer Active Annita Mejia MD PhD Active ZITHROMAX Z-MARY 250 MG ORAL TABLET 2 today and then 1 daily for 4 days 03/11 AZITHROMYCIN 02214003467 No Longer Active Annita Mejia MD PhD Active GUAIFENESIN-CODEINE 100-10 MG/5ML ORAL SYRUP 5ml every 4 to 6 hours as needed for cough GUAIFENESIN-CODEINE 30459432029 No Longer Active Annita Mejia MD PhD Active FLONASE 50 MCG/ACT NASAL SUSPENSION 1 spray each nostril am and hs FLUTICASONE PROPIONATE 32780711055 No Longer Active Kendell Coronado MD Active MELOXICAM 15 MG ORAL TABLET 1 po q day for pain with food MELOXICAM 77885911661 No Longer Active Kendell Coronado MD Active HYDROCODONE-ACETAMINOPHEN 5-325 MG ORAL TABLET 1-2 q 4-6 hrs prn pain 20 tabs HYDROCODONE-ACETAMINOPHEN 37154696657 No Longer Active Daniele Mcfadden DO Active PREDNISONE 20 MG ORAL TABLET 1 tablet twice daily for 2 days, then 1 tablet once daily for 2 days PREDNISONE 89314260706 No Longer Active Daniele Mcfadden DO Active PREDNISONE 20 MG ORAL TABLET 1 po bid 2 days, then daily for 2 days PREDNISONE 41649820241 No Longer Active Alexander LOPEZ Active AZITHROMYCIN 250 MG ORAL TABLET 2 po qd x 1 day, then 1 po qd x 4 days 08/05 AZITHROMYCIN 60980725344 No Longer Active Daniele Mcfadden DO Active MUCINEX MAXIMUM STRENGTH TABLET EXTENDED RELEASE 12 HOUR 1 po qd GUAIFENESIN [id number] 61496118987 No Longer Active Daniele Mcfadden DO Active AZITHROMYCIN 250 MG ORAL TABLET 2 po qd x 1 day, then 1 po qd x 4 days 11/26 AZITHROMYCIN 59349845874 No Longer Active Margarito Kelley MD Active MUCINEX MAXIMUM STRENGTH TABLET EXTENDED RELEASE 12 HOUR 1 po qd MUCINEX MAXIMUM STRENGTH TABLET EXTENDED RELEASE 12 HOUR GUAIFENESIN [id number] Inactive PREDNISONE 20 MG ORAL TABLET 1 po bid 2 days, then daily for 2 days PREDNISONE 20 MG ORAL TABLET 274434 PREDNISONE Inactive PREDNISONE 20 MG ORAL TABLET 1 tablet twice daily for 2 days, then 1 tablet once daily for 2 days PREDNISONE 20 MG ORAL TABLET 206723 PREDNISONE Inactive HYDROCODONE-ACETAMINOPHEN 5-325 MG ORAL TABLET 1-2 q 4-6 hrs prn pain 20 tabs HYDROCODONE-ACETAMINOPHEN 5-325 MG ORAL TABLET 928046 HYDROCODONE-ACETAMINOPHEN Inactive MELOXICAM 15 MG ORAL TABLET 1 po q day for pain with food MELOXICAM 15 MG ORAL TABLET 210661 MELOXICAM Inactive FLONASE 50 MCG/ACT NASAL SUSPENSION 1 spray each nostril am and hs FLONASE 50 MCG/ACT NASAL SUSPENSION 9080496 FLUTICASONE PROPIONATE Inactive GUAIFENESIN-CODEINE 100-10 MG/5ML ORAL SYRUP 5ml every 4 to 6 hours as needed for cough GUAIFENESIN-CODEINE 100-10 MG/5ML ORAL SYRUP 669187 GUAIFENESIN-CODEINE Inactive ZITHROMAX Z-MARY 250 MG ORAL TABLET 2 today and then 1 daily for 4 days 03/11 ZITHROMAX Z-MARY 250 MG ORAL TABLET 268201 AZITHROMYCIN Inactive CEFTIN 500 MG ORAL TABLET 1 tablet by mouth twice daily for ten days. CEFTIN 500 MG ORAL TABLET 168335 CEFUROXIME AXETIL Inactive PROAIR HFA 108 (90 [...] CONGESTION TABLET EXTENDED RELEASE 12 HOUR FEXOFENADINE-PSEUDOEPHEDRINE [id number] Inactive PREDNISONE 20 MG ORAL TABLET 1 tablet twice daily for 2 days, then 1 tablet once daily for 2 days PREDNISONE 20 MG ORAL TABLET 253466 PREDNISONE Inactive GUAIFENESIN ER 600 MG ORAL TABLET EXTENDED RELEASE 12 HOUR 1 twice a day as needed for congestion GUAIFENESIN ER 600 MG ORAL TABLET EXTENDED RELEASE 12 HOUR GUAIFENESIN Inactive FLUTICASONE PROPIONATE 50 MCG/ACT NASAL SUSPENSION 1 to 2 sprays each nostril daily FLUTICASONE PROPIONATE 50 MCG/ACT NASAL SUSPENSION 8894095 FLUTICASONE PROPIONATE Inactive MUCINEX D 60-600 MG ORAL TABLET EXTENDED RELEASE 12 HOUR 1 po BID PRN Congestion MUCINEX D 60-600 MG ORAL TABLET EXTENDED RELEASE 12 HOUR PSEUDOEPHEDRINE-GUAIFENESIN Inactive PREDNISONE 20 MG ORAL TABLET two tabs by mouth today, then one tab by mouth days two and three PREDNISONE 20 MG ORAL TABLET 104908 PREDNISONE Inactive PREDNISONE 10 MG ORAL TABLET 2 TABS BY MOUTH TODAY, THEN 1 TAB BY MOUTH DAYS 2 -5 PREDNISONE 10 MG ORAL TABLET 661330 PREDNISONE Inactive AZITHROMYCIN 250 MG ORAL TABLET 2 po qd x 1 day, then 1 po qd x 4 days 11/26 AZITHROMYCIN 250 MG ORAL TABLET 603473 AZITHROMYCIN Inactive AZITHROMYCIN 250 MG ORAL TABLET 2 po qd x 1 day, then 1 po qd x 4 days 08/05 AZITHROMYCIN 250 MG ORAL TABLET 646794 AZITHROMYCIN Inactive MEDROL 4 MG ORAL TABLET THERAPY PACK 6 pills on day 1, 5 pills on day 2, 4 pills on day 3, 4 pills on day 4, 2 pills on day 5, 1 pill on day 6 MEDROL 4 MG ORAL TABLET THERAPY PACK 196297 METHYLPREDNISOLONE Inactive CEPHALEXIN 500 MG ORAL CAPSULE 1 tablet by mouth three times daily for ten days CEPHALEXIN 500 MG ORAL CAPSULE 741318 CEPHALEXIN Inactive PREDNISONE 20 MG ORAL TABLET 2 tabs daily for 3 days, 1 tab daily for 3 days, 1/2 tab daily for 2 days PREDNISONE 20 MG ORAL TABLET 583462 PREDNISONE Inactive CEFDINIR 300 MG ORAL CAPSULE 1 cap by mouth twice a day CEFDINIR 300 MG ORAL CAPSULE 592212 CEFDINIR Inactive PREDNISONE 20 MG ORAL TABLET 2 tabs daily for 3 days, 1 tab daily for 3 days, 1/2 tab daily for 2 days PREDNISONE 20 MG ORAL TABLET 183524 PREDNISONE Inactive PREDNISONE 20 MG ORAL TABLET 2 tabs daily for 3 days, 1 tab daily for 3 days, 1/2 tab daily for 2 days PREDNISONE 20 MG ORAL TABLET 430465 PREDNISONE Inactive CEFDINIR 300 MG ORAL CAPSULE by mouth twice a day CEFDINIR 300 MG ORAL CAPSULE 380080 CEFDINIR Inactive PREDNISONE 20 MG ORAL TABLET 2 tabs daily for 3 days, 1 tab daily for 3 days, 1/2 tab daily for 2 days PREDNISONE 20 MG ORAL TABLET 191714 PREDNISONE Inactive CEFDINIR 300 MG ORAL CAPSULE 1 po BID x 10 days CEFDINIR 300 MG ORAL CAPSULE 219388 CEFDINIR Inactive AZITHROMYCIN 250 MG ORAL TABLET 2 po qd x 1 day, then 1 po qd x 4 days 08/30 AZITHROMYCIN 250 MG ORAL TABLET 084662 AZITHROMYCIN Inactive PREDNISONE 20 MG ORAL TABLET 2 tabs daily for 3 days, 1 tab daily for 3 days, 1/2 tab daily for 2 days start tomorrow 07/31/16 PREDNISONE 20 MG ORAL TABLET 684666 PREDNISONE Inactive AZITHROMYCIN 250 MG ORAL TABLET 2 po qd x 1 day, then 1 po qd x 4 days 07/24 AZITHROMYCIN 250 MG ORAL TABLET 944530 AZITHROMYCIN Inactive Immunizations Vaccine Administration Date Value Standard Description Human Papillomavirus vaccine (Gardasil) #2, (HPV #2) Gardasil [ CVX62] human papilloma virus vaccine, quadrivalent Seasonal influenza vaccine, injectable, containing preservative, for > 3 years old (Afluria, FluLaval, Fluzone, Fluvirin, Fluarix, Agriflu(>=18 yo)) Fluzone (>3 yrs.) [POP901] Influenza, seasonal, injectable Human Papillomavirus Vaccine (Gardasil) #1 Given (HPV #1) Gardasil [CVX62] human papilloma virus vaccine, quadrivalent hepatitis A immunization #2 Havrix-Pedi hepatitis A vaccine, unspecified formulation Boostrix (Tetanus toxoid, reduced diphtheria toxoid and acellular pertussis vaccine, adsorbed), booster Boostrix [PAQ539] tetanus toxoid, reduced diphtheria toxoid, and acellular [...] Negative;Positive Encounters Code Encounter Date Provider Facility CPT-75280 Level 3 Est. Patient 09:35:49 [employer]ARK KEEPER Daniele Mcfadden [facility] CPT-08069 Level 3 Est. Patient 09:35:25 PARK KEEPER Daniele Mcfadden [facility] CPT-29411 Level 3 Est. Patient 16:03:55 PARK KEEPER Whitley Quiroz [facility] CPT-24902 Level 3 Est. Patient 17:42:49 PARK KEEPER Whitley Quiroz [facility] CPT-14025 Level 3 Est. Patient 10:49:47 PARK KEEPER Griselda Horvath [facility]-65024 Level 3 Est. Patient 08:43:59 PARK KEEPER Jessika Nunes [facility] CPT-93082 Level 3 Est. Patient 09:05:19 PARK KEEPER Griselda Horvath [facility] CPT-07500 Level 3 Est. Patient 15:45:46 CDT Griselda Horvath [facility] CPT-90129 Level 3 Est. Patient 14:15:52 CDT Daniele Mcfadden [facility] CPT-77024 Level 3 Est. Patient 13:57:19 PARK KEEPER Margarito Kelley MD [facility] CPT-30352 Level 3 Est. Patient 09:16:05 PARK KEEPER Margarito Kelley MD [facility] CPT-88375 Level 3 Est. Patient 15:37:06 PARK KEEPER Daniele Mcfadden [facility] CPT-12013 Level 3 Est. Patient 11:56:34 PARK KEEPER Renée Adames [facility] CPT-40434 Level 3 Est. Patient 12:19:42 CDT Daniele Mcfadden [facility] CPT-74234 Level 3 Est. Patient 11:08:45 CDT Annita Mejia MD PhD [facility] CPT-98702 Level 3 Est. Patient 12:00:17 CDT Kendell Coronado MD [facility]-71525 Level 3 Est. Patient 12:27:25 CDT Daniele Mcfadden [facility] CPT-64184 Level 3 Est. Patient 18:45:11 PARK KEEPER Daniele Mcfadden [facility] CPT-18113 Level 3 Est. Patient 10:12:24 PARK KEEPER Daniele Mcfadden [facility] CPT-70474 Level 3 Est. Patient 14:35:11 PARK KEEPER Daniele Mcfadden [facility] CPT-52104 Level 3 Est. Patient 14:11:04 CDT Daniele Mcfadden [facility] CPT-99015 Level 3 Est. Patient 10:52:13 CDT Alexander LOPEZ [facility] CPT-85464 Level 3 Est. Patient 11:01:08 PARK KEEPER Daniele Mcfadden [facility] CPT-60799 Level 3 Est. Patient 10:55:35 CDT Daniele Mcfadden [facility] CPT-09293 Level 3 Est. Patient 14:03:08 CDT Daniele Salter Bogdan [facility] CPT-14846 Level 3 Est. Patient 11:26:19 CDT Margarito Kelley MD [facility] CPT-55967 Level 2 Est. Patient 15:32:04 PARK KEEPER Daniele Mcfadden [facility] CPT-40401 Level 3 Est. Patient 16:01:26 PARK KEEPER Daniele Mcfadden [facility] CPT-93570 Level 3 Est. Patient 06:37:10 PARK KEEPER Daniele Gaetano [facility] Procedures Code Procedure Name Date Entry Date Standard Description CPT-70129 Addl Vx - Ix admin via ID IM or jet injects without counseling by physician 14:37:19 CDT CPT-96798 Meningococcal B, recombinant vaccine 14:37:19 CDT 03/05 CPT-33891 First Vx - Ix admin via ID IM or jet injects without counseling by physician 14:37:19 CDT CPT-15492 Menveo Intramuscular Solution Reconstituted 14:37:19 CDT CPT-04534 Meningococcal Conjugate Vacine (Menactra) 11:20:04 CDT CPT-51532 Throat Culture - LAB USE ONLY 12:15:45 PARK KEEPER CPT-15760 Shani Flu A/B - LAB USE ONLY 12:15:45 PARK KEEPER CPT-95480 Rapid Strep (Reflex throat) - LAB USE ONLY 12:15:45 PARK KEEPER CPT-77179 Rapid Strep (Grp A) - LAB USE ONLY 13:06:06 CDT CPT-47147 Abd compl w upright 12:34:39 CDT CPT-72637 Immunization Single Admin 11:38:41 CDT CPT-07641 Fluzone Quadrivalent Intramuscular Suspension 0.5 ML 11: 38:41 CDT CPT-OV Office Visit 14:45:12 PARK KEEPER CPT-77886 [employer] abd [employer] inc all organs plus proximal aorta and distal IVC 2012 12:13:02 PARK KEEPER CPT-33488 Abd compl w upright 15:12:58 PARK KEEPER CPT-36429 Venipuncture Draw Fee 14:38:32 PARK KEEPER CPT-98397 Administration single or combination vaccine inc oral 17 :10:04 CDT CPT-67829 Gardasil 17:10:04 CDT CPT-98572 Venipuncture Draw Fee 16:07:54 PARK KEEPER CPT-11558 Administration 2+ single or combination vaccines inc oral 17:22:02 CDT CPT-99730 Administration single or combination vaccine inc oral 17 :22:02 CDT CPT-99875 Influenza split virus > age 3 17:22:02 CDT CPT-18538 Gardasil 17:22:02 CDT CPT-01608 Administration 2+ single or combination vaccines inc oral 14:38:31 CDT CPT-20862 Administration single or combination vaccine inc oral 14 :38:31 CDT CPT-54058 Meningococcal Conjugate Vacine (Menactra) 14:38:31 CDT CPT-08675 Gardasil 14:38:31 CDT
--- NOTE | 2018-02-15 07:06 | Progress Note-Pre Operative ---
Pre-Operative Progress Note H&P Reviewed The H&P was reviewed, patient examined and no changes noted. Date Seen by Provider: Feb 15, 2018 Time Seen by Provider: 07:00 Date H&P Reviewed: Feb 15, 2018 Time H&P Reviewed: 07:00 Pre-Operative Diagnosis: Rec Tons, Tonsilalr Hyper TALHA MOODY MD Feb 15, 2018 7:06 am
--- OUTSIDE RECORDS SUMMARY | 2018-02-15 07:07 | XMS REPORT | Clinical Summary ---
Author Author Admin, Ludmila Organization [facility] Address Unknown Phone Unavailable Allergies, [...] tube dysfunction, right ICD-381.81 Inactive Katie Gipson OIL DELIVERER Pharyngitis-Acute ICD-462 Inactive Katie Gipson OIL DELIVERER URI ICD-465.9 Inactive Katie Gipson OIL DELIVERER Allergic rhinitis ICD-477.9 Inactive Katie Gipson OIL DELIVERER Acute rhinosinusitis ICD-461.9 Inactive Katie Gipson OIL DELIVERER Fever ICD-780.60 Inactive Katie Gipson OIL DELIVERER Immunization due ICD-V15.83 Inactive Katie Brandan BOWMAN U R I ICD-465.9 Inactive Holly Sharma Medication List Medication Instructions Start Date Stop Date Generic Name NDC Status Provider Patient Instruction FLUTICASONE PROPIONATE 50 MCG/ACT NASAL SUSPENSION 1 spray each nostril twice daily until bottle empty FLUTICASONE PROPIONATE 71469007176 Active Daniele Mcfadden DO Active PREDNISONE 20 MG ORAL TABLET 2 tabs by mouth today, then 1 tab tomorrow 08/30 PREDNISONE 02100268499 Active Daniele Mcfadden DO Active PREDNISONE 10 MG ORAL TABLET 2 TABS BY MOUTH TODAY, THEN 1 TAB BY MOUTH DAYS 2 -5 PREDNISONE 31186457271 No Longer Active Daniele Mcfadden DO Active PREDNISONE 20 MG ORAL TABLET two tabs by mouth today, then one tab by mouth days two and three PREDNISONE 19975825365 No Longer Active Whitley Hernandez Active AZITHROMYCIN 250 MG ORAL TABLET 2 po qd x 1 day, then 1 po qd x 4 days 07/24 AZITHROMYCIN 42559169434 No Longer Active Daniele Mcfadden DO Active IRVING-D ALLERGY & CONGESTION 60-120 MG ORAL TABLET EXTENDED RELEASE 12 HOUR 1 tablet twice daily as needed for congestion/allergies FEXOFENADINE-PSEUDOEPHEDRINE 66202646623 Active Holly Sharma Active PREDNISONE 20 MG ORAL TABLET 2 tabs daily for 3 days, 1 tab daily for 3 days, 1/2 tab daily for 2 days start tomorrow 07/31/16 PREDNISONE 61700448191 No Longer Active Jillsd Borgeszelyue JOHNSON Active AZITHROMYCIN 250 MG ORAL TABLET 2 po qd x 1 day, then 1 po qd x 4 days 08/30 AZITHROMYCIN 50782373693 No Longer Active Jillina Frazell [employer] Active MUCINEX D 60-600 MG ORAL TABLET EXTENDED RELEASE 12 HOUR 1 po BID PRN Congestion PSEUDOEPHEDRINE-GUAIFENESIN 13889848644 No Longer Active Jessika Nunes APRN Active CEFDINIR 300 MG ORAL CAPSULE 1 po BID x 10 days CEFDINIR 08832558002 No Longer Active Griselda Horvath APRN Active PREDNISONE 20 MG ORAL TABLET 2 tabs daily for 3 days, 1 tab daily for 3 days, 1/2 tab daily for 2 days PREDNISONE 06212461631 No Longer Active Ezekielllina Alexandru ONTIVEROSN Active FLUTICASONE PROPIONATE 50 MCG/ACT NASAL SUSPENSION 1 to 2 sprays each nostril daily FLUTICASONE PROPIONATE 72221306085 No Longer Active Griselda Horvath APRN Active GUAIFENESIN ER 600 MG ORAL TABLET EXTENDED RELEASE 12 HOUR 1 twice a day as needed for congestion GUAIFENESIN 04350736742 No Longer Active Griselda Horvath APRN Active CEFDINIR 300 MG ORAL CAPSULE by mouth twice a day CEFDINIR 17825920252 No Longer Active Griselda Horvath APRN Active PREDNISONE 20 MG ORAL TABLET 1 tablet twice daily for 2 days, then 1 tablet once daily for 2 days PREDNISONE 50854797475 No Longer Active Griselda Horvath APRN Active PREDNISONE 20 MG ORAL TABLET 2 tabs daily for 3 days, 1 tab daily for 3 days, 1/2 tab daily for 2 days PREDNISONE 77846921137 No Longer Active Margarito Kelley MD Active IRVING-D ALLERGY & CONGESTION TABLET EXTENDED RELEASE 12 HOUR 1 po bid 05/26 FEXOFENADINE-PSEUDOEPHEDRINE [id number] 71797180811 No Longer Active Margarito Kelley MD Active PREDNISONE 20 MG ORAL TABLET 2 tabs daily for 3 days, 1 tab daily for 3 days, 1/2 tab daily for 2 days PREDNISONE 71578527551 No Longer Active Ezekielllsd Horvath APRN Active CEFDINIR 300 MG ORAL CAPSULE 1 cap by mouth twice a day CEFDINIR 60766759904 No Longer Active Ezekielllsd Horvath APRN Active E-Z SPACER DEVICE use with proair inhalier every 4 times as need. SPACER/AERO-HOLDING CHAMBERS 88194643631 No Longer Active Griselda Horvath APRN Active PROAIR HFA 108 (90 Base) MCG/ACT INHALATION AEROSOL SOLUTION 2 puffs every 4 hours as needed ALBUTEROL SULFATE 77112613660 No Longer Active Griselda Horvath APRN Active CEFTIN 500 MG ORAL TABLET 1 tablet by mouth twice daily for ten days. CEFUROXIME AXETIL 95283851631 No Longer Active Griselda Horvath APRN Active PREDNISONE 20 MG ORAL TABLET 2 tabs daily for 3 days, 1 tab daily for 3 days, 1/2 tab daily for 2 days PREDNISONE 75114262959 No Longer Active Margarito Kelley MD Active CEPHALEXIN 500 MG ORAL CAPSULE 1 tablet by mouth three times daily for ten days CEPHALEXIN 83196259186 No Longer Active Renée Adames APRN Active MEDROL 4 MG ORAL TABLET THERAPY PACK 6 pills on day 1, 5 pills on day 2, 4 pills on day 3, 4 pills on day 4, 2 pills on day 5, 1 pill on day 6 METHYLPREDNISOLONE 69965395011 No Longer Active Annita Mejia MD PhD Active ZITHROMAX Z-MARY 250 MG ORAL TABLET 2 today and then 1 daily for 4 days 03/11 AZITHROMYCIN 40744879165 No Longer Active Annita Mejia MD PhD Active GUAIFENESIN-CODEINE 100-10 MG/5ML ORAL SYRUP 5ml every 4 to 6 hours as needed for cough GUAIFENESIN-CODEINE 31161693081 No Longer Active Annita Mejia MD PhD Active FLONASE 50 MCG/ACT NASAL SUSPENSION 1 spray each nostril am and hs FLUTICASONE PROPIONATE 38229104081 No Longer Active Kendell Coronado MD Active MELOXICAM 15 MG ORAL TABLET 1 po q day for pain with food MELOXICAM 67186154176 No Longer Active Kendell Coronado MD Active HYDROCODONE-ACETAMINOPHEN 5-325 MG ORAL TABLET 1-2 q 4-6 hrs prn pain 20 tabs HYDROCODONE-ACETAMINOPHEN 56077262837 No Longer Active Daniele Mcfadden DO Active PREDNISONE 20 MG ORAL TABLET 1 tablet twice daily for 2 days, then 1 tablet once daily for 2 days PREDNISONE 65170310063 No Longer Active Daniele Mcfadden DO Active PREDNISONE 20 MG ORAL TABLET 1 po bid 2 days, then daily for 2 days PREDNISONE 18437969084 No Longer Active Alexander LOPEZ Active AZITHROMYCIN 250 MG ORAL TABLET 2 po qd x 1 day, then 1 po qd x 4 days 08/05 AZITHROMYCIN 66356430763 No Longer Active Daniele Mcfadden DO Active MUCINEX MAXIMUM STRENGTH TABLET EXTENDED RELEASE 12 HOUR 1 po qd GUAIFENESIN [id number] 55617303876 No Longer Active Daniele Mcfadden DO Active AZITHROMYCIN 250 MG ORAL TABLET 2 po qd x 1 day, then 1 po qd x 4 days 11/26 AZITHROMYCIN 41615080346 No Longer Active Maragrito Kelley MD Active MUCINEX MAXIMUM STRENGTH TABLET EXTENDED RELEASE 12 HOUR 1 po qd MUCINEX MAXIMUM STRENGTH TABLET EXTENDED RELEASE 12 HOUR GUAIFENESIN [id number] Inactive PREDNISONE 20 MG ORAL TABLET 1 po bid 2 days, then daily for 2 days PREDNISONE 20 MG ORAL TABLET 149337 PREDNISONE Inactive PREDNISONE 20 MG ORAL TABLET 1 tablet twice daily for 2 days, then 1 tablet once daily for 2 days PREDNISONE 20 MG ORAL TABLET 071993 PREDNISONE Inactive HYDROCODONE-ACETAMINOPHEN 5-325 MG ORAL TABLET 1-2 q 4-6 hrs prn pain 20 tabs HYDROCODONE-ACETAMINOPHEN 5-325 MG ORAL TABLET 790975 HYDROCODONE-ACETAMINOPHEN Inactive MELOXICAM 15 MG ORAL TABLET 1 po q day for pain with food MELOXICAM 15 MG ORAL TABLET 395595 MELOXICAM Inactive FLONASE 50 MCG/ACT NASAL SUSPENSION 1 spray each nostril am and hs FLONASE 50 MCG/ACT NASAL SUSPENSION 4466250 FLUTICASONE PROPIONATE Inactive GUAIFENESIN-CODEINE 100-10 MG/5ML ORAL SYRUP 5ml every 4 to 6 hours as needed for cough GUAIFENESIN-CODEINE 100-10 MG/5ML ORAL SYRUP 531984 GUAIFENESIN-CODEINE Inactive ZITHROMAX Z-MARY 250 MG ORAL TABLET 2 today and then 1 daily for 4 days 03/11 ZITHROMAX Z-MARY 250 MG ORAL TABLET 932701 AZITHROMYCIN Inactive CEFTIN 500 MG ORAL TABLET 1 tablet by mouth twice daily for ten days. CEFTIN 500 MG ORAL TABLET 721041 CEFUROXIME AXETIL Inactive PROAIR HFA 108 (90 [...] CONGESTION TABLET EXTENDED RELEASE 12 HOUR FEXOFENADINE-PSEUDOEPHEDRINE [id number] Inactive PREDNISONE 20 MG ORAL TABLET 1 tablet twice daily for 2 days, then 1 tablet once daily for 2 days PREDNISONE 20 MG ORAL TABLET 979894 PREDNISONE Inactive GUAIFENESIN ER 600 MG ORAL TABLET EXTENDED RELEASE 12 HOUR 1 twice a day as needed for congestion GUAIFENESIN ER 600 MG ORAL TABLET EXTENDED RELEASE 12 HOUR GUAIFENESIN Inactive FLUTICASONE PROPIONATE 50 MCG/ACT NASAL SUSPENSION 1 to 2 sprays each nostril daily FLUTICASONE PROPIONATE 50 MCG/ACT NASAL SUSPENSION 9740147 FLUTICASONE PROPIONATE Inactive MUCINEX D 60-600 MG ORAL TABLET EXTENDED RELEASE 12 HOUR 1 po BID PRN Congestion MUCINEX D 60-600 MG ORAL TABLET EXTENDED RELEASE 12 HOUR PSEUDOEPHEDRINE-GUAIFENESIN Inactive PREDNISONE 20 MG ORAL TABLET two tabs by mouth today, then one tab by mouth days two and three PREDNISONE 20 MG ORAL TABLET 234765 PREDNISONE Inactive PREDNISONE 10 MG ORAL TABLET 2 TABS BY MOUTH TODAY, THEN 1 TAB BY MOUTH DAYS 2 -5 PREDNISONE 10 MG ORAL TABLET 730693 PREDNISONE Inactive AZITHROMYCIN 250 MG ORAL TABLET 2 po qd x 1 day, then 1 po qd x 4 days 11/26 AZITHROMYCIN 250 MG ORAL TABLET 313606 AZITHROMYCIN Inactive AZITHROMYCIN 250 MG ORAL TABLET 2 po qd x 1 day, then 1 po qd x 4 days 08/05 AZITHROMYCIN 250 MG ORAL TABLET 835787 AZITHROMYCIN Inactive MEDROL 4 MG ORAL TABLET THERAPY PACK 6 pills on day 1, 5 pills on day 2, 4 pills on day 3, 4 pills on day 4, 2 pills on day 5, 1 pill on day 6 MEDROL 4 MG ORAL TABLET THERAPY PACK 723999 METHYLPREDNISOLONE Inactive CEPHALEXIN 500 MG ORAL CAPSULE 1 tablet by mouth three times daily for ten days CEPHALEXIN 500 MG ORAL CAPSULE 050555 CEPHALEXIN Inactive PREDNISONE 20 MG ORAL TABLET 2 tabs daily for 3 days, 1 tab daily for 3 days, 1/2 tab daily for 2 days PREDNISONE 20 MG ORAL TABLET 634936 PREDNISONE Inactive CEFDINIR 300 MG ORAL CAPSULE 1 cap by mouth twice a day CEFDINIR 300 MG ORAL CAPSULE 740223 CEFDINIR Inactive PREDNISONE 20 MG ORAL TABLET 2 tabs daily for 3 days, 1 tab daily for 3 days, 1/2 tab daily for 2 days PREDNISONE 20 MG ORAL TABLET 604423 PREDNISONE Inactive PREDNISONE 20 MG ORAL TABLET 2 tabs daily for 3 days, 1 tab daily for 3 days, 1/2 tab daily for 2 days PREDNISONE 20 MG ORAL TABLET 376433 PREDNISONE Inactive CEFDINIR 300 MG ORAL CAPSULE by mouth twice a day CEFDINIR 300 MG ORAL CAPSULE 707446 CEFDINIR Inactive PREDNISONE 20 MG ORAL TABLET 2 tabs daily for 3 days, 1 tab daily for 3 days, 1/2 tab daily for 2 days PREDNISONE 20 MG ORAL TABLET 166776 PREDNISONE Inactive CEFDINIR 300 MG ORAL CAPSULE 1 po BID x 10 days CEFDINIR 300 MG ORAL CAPSULE 537684 CEFDINIR Inactive AZITHROMYCIN 250 MG ORAL TABLET 2 po qd x 1 day, then 1 po qd x 4 days 08/30 AZITHROMYCIN 250 MG ORAL TABLET 577200 AZITHROMYCIN Inactive PREDNISONE 20 MG ORAL TABLET 2 tabs daily for 3 days, 1 tab daily for 3 days, 1/2 tab daily for 2 days start tomorrow 07/31/16 PREDNISONE 20 MG ORAL TABLET 912331 PREDNISONE Inactive AZITHROMYCIN 250 MG ORAL TABLET 2 po qd x 1 day, then 1 po qd x 4 days 07/24 AZITHROMYCIN 250 MG ORAL TABLET 960312 AZITHROMYCIN Inactive Immunizations Vaccine Administration Date Value Standard Description Human Papillomavirus vaccine (Gardasil) #2, (HPV #2) Gardasil [ CVX62] human papilloma virus vaccine, quadrivalent Seasonal influenza vaccine, injectable, containing preservative, for > 3 years old (Afluria, FluLaval, Fluzone, Fluvirin, Fluarix, Agriflu(>=18 yo)) Fluzone (>3 yrs.) [[id number]] Influenza, seasonal, injectable Human Papillomavirus Vaccine (Gardasil) #1 Given (HPV #1) Gardasil [CVX62] human papilloma virus vaccine, quadrivalent hepatitis A immunization #2 Havrix-Pedi hepatitis A vaccine, unspecified formulation Boostrix (Tetanus toxoid, reduced diphtheria toxoid and acellular pertussis vaccine, adsorbed), booster Boostrix [OIH023] tetanus toxoid, reduced diphtheria toxoid, and acellular [...] Negative Encounters Code Encounter Date Provider Facility CPT-83981 Level 3 Est. Patient 09:35:49 DIRECTOR OF CONSUMER AFFAIRS Daniele Mcfadden [facility] CPT-43121 Level 3 Est. Patient 09:35:25 DIRECTOR OF CONSUMER AFFAIRS Daniele Mcfadden [facility] CPT-77367 Level 3 Est. Patient 16:03:55 DIRECTOR OF CONSUMER AFFAIRS Whitley Quiroz [facility] CPT-95960 Level 3 Est. Patient 17:42:49 DIRECTOR OF CONSUMER AFFAIRS Whitley Quiroz [facility] CPT-21678 Level 3 Est. Patient 10:49:47 DIRECTOR OF CONSUMER AFFAIRS Griselda Horvath [facility] CPT-36291 Level 3 Est. Patient 08:43:59 DIRECTOR OF CONSUMER AFFAIRS Jessika Nunes [facility] CPT-15783 Level 3 Est. Patient 09:05:19 DIRECTOR OF CONSUMER AFFAIRS Griselda Horvath [facility] CPT-86819 Level 3 Est. Patient 15:45:46 CDT Griselda Horvath [facility] CPT-22314 Level 3 Est. Patient 14:15:52 CDT Daniele Mcfadden [facility] CPT-00378 Level 3 Est. Patient 13:57:19 DIRECTOR OF CONSUMER AFFAIRS Margarito Kelley MD [facility] CPT-20932 Level 3 Est. Patient 09:16:05 DIRECTOR OF CONSUMER AFFAIRS Margarito Kelley MD [facility] CPT-67419 Level 3 Est. Patient 15:37:06 DIRECTOR OF CONSUMER AFFAIRS Daniele W Bogdan [facility] CPT-56500 Level 3 Est. Patient 11:56:34 DIRECTOR OF CONSUMER AFFAIRS Renée Adames ALEX [facility] CPT-81944 Level 3 Est. Patient 12:19:42 CDT Daniele Mcfadden [facility] CPT-05026 Level 3 Est. Patient 11:08:45 CDT Annita Mejia MD PhD [facility] CPT-29793 Level 3 Est. Patient 12:00:17 CDT Kendell Coronado MD [facility] CPT-32205 Level 3 Est. Patient 12:27:25 CDT Daniele Mcfadden [facility] CPT-97581 Level 3 Est. Patient 18:45:11 DIRECTOR OF CONSUMER AFFAIRS Daniele Mcfadden [facility] CPT-33160 Level 3 Est. Patient 10:12:24 DIRECTOR OF CONSUMER AFFAIRS Daniele Mcfaddne [facility] CPT-77261 Level 3 Est. Patient 14:35:11 DIRECTOR OF CONSUMER AFFAIRS Daniele Mcfadden [facility] CPT-85868 Level 3 Est. Patient 14:11:04 CDT Daniele Mcfadden [facility] CPT-04986 Level 3 Est. Patient 10:52:13 CDT Alexander LOPEZ [facility] CPT-24515 Level 3 Est. Patient 11:01:08 DIRECTOR OF CONSUMER AFFAIRS Daniele Mcfadden [facility] CPT-60539 Level 3 Est. Patient 10:55:35 CDT Daniele Mcfadden [facility] CPT-97967 Level 3 Est. Patient 14:03:08 CDT Daniele Mcfadden [facility] CPT-54003 Level 3 Est. Patient 11:26:19 CDT Margarito Kelley MD [facility] CPT-11253 Level 2 Est. Patient 15:32:04 DIRECTOR OF CONSUMER AFFAIRS Daniele Mcfadden [facility] CPT-27049 Level 3 Est. Patient 16:01:26 DIRECTOR OF CONSUMER AFFAIRS Daniele Gaetano Mcfadden [facility] CPT-91462 Level 3 Est. Patient 06:37:10 DIRECTOR OF CONSUMER AFFAIRS Daniele Mcfadden [facility] Procedures Code Procedure Name Date Entry Date Standard Description CPT-86158 Addl Vx - Ix admin via ID IM or jet injects without counseling by physician 14:37:19 CDT CPT-80153 Meningococcal B, recombinant vaccine 14:37:19 CDT 03/05 CPT-09342 First Vx - Ix admin via ID IM or jet injects without counseling by physician 14:37:19 CDT CPT-01301 Menveo Intramuscular Solution Reconstituted 14:37:19 CDT CPT-59174 Meningococcal Conjugate Vacine (Menactra) 11:20:04 CDT CPT-28384 Throat Culture - LAB USE ONLY 12:15:45 [employer]OR OF [employer] CPT-77804 Misa Flu A/B - LAB USE ONLY 12:15:45 [employer]OR OF CON[employer]FFA[employer] CPT-77937 Rapid Strep (Reflex throat) - LAB USE ONLY 12:15:45 [employer]OR OF CON[employer] AFFA[employer] CPT-58263 Rapid Strep (Grp A) - LAB USE ONLY 13:06:06 CDT CPT-88593 Abd compl w upright 12:34:39 CDT CPT-05665 Immunization Single Admin 11:38:41 CDT CPT-92053 Fluzone Quadrivalent Intramuscular Suspension 0.5 ML 11: 38:41 CDT CPT-OV Office Visit 14:45:12 [employer]OR OF [employer] CPT-77624 [employer] inc all organs plus proximal aorta and distal IVC 2012 12:13:02 [employer] OF CON[employer] CPT-37702 Abd compl w upright 15:12:58 [employer] CPT-10744 Venipuncture Draw Fee 14:38:32 [employer] CPT-51637 Administration single or combination vaccine inc oral 17 :10:04 CDT CPT-04297 Gardasil 17:10:04 CDT CPT-36849 Venipuncture Draw Fee 16:07:54 [employer] CPT-59001 Administration 2+ single or combination vaccines inc oral 17:22:02 CDT CPT-36018 Administration single or combination vaccine inc oral 17 :22:02 CDT CPT-66126 Influenza split virus > age 3 17:22:02 CDT CPT-70310 Gardasil 17:22:02 CDT CPT-74922 Administration 2+ single or combination vaccines inc oral 14:38:31 CDT CPT-75453 Administration single or combination vaccine inc oral 14 :38:31 CDT CPT-26659 Meningococcal Conjugate Vacine (Menactra) 14:38:31 CDT CPT-54835 Gardasil 14:38:31 CDT
--- OUTSIDE RECORDS SUMMARY | 2018-02-15 07:08 | XMS REPORT | Clinical Summary ---
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 Medication List Medication Instructions Start Date Stop Date Generic Name NDC Status Provider Patient Instruction PREDNISONE 10 MG ORAL TABLET 2 TABS BY MOUTH TODAY, THEN 1 TAB BY MOUTH DAYS 2 -5 PREDNISONE 80998219018 Active Daniele Mcfadden DO Active PREDNISONE 20 MG ORAL TABLET two tabs by mouth today, then one tab by mouth days two and three PREDNISONE 17606928991 No Longer Active Whitley Hernandez Active AZITHROMYCIN 250 MG ORAL TABLET 2 po qd x 1 day, then 1 po qd x 4 days 07/24 AZITHROMYCIN 29031287910 No Longer Active Daniele Mcfadden DO Active IRVING-D ALLERGY & CONGESTION 60-120 MG ORAL TABLET EXTENDED RELEASE 12 HOUR 1 tablet twice daily as needed for congestion/allergies FEXOFENADINE-PSEUDOEPHEDRINE 50939965987 Active Holly Sharma Active PREDNISONE 20 MG ORAL TABLET 2 tabs daily for 3 days, 1 tab daily for 3 days, 1/2 tab daily for 2 days start tomorrow 07/31/16 PREDNISONE 38108130630 No Longer Active Jillina Alexandru JOHNSON Active AZITHROMYCIN 250 MG ORAL TABLET 2 po qd x 1 day, then 1 po qd x 4 days 08/30 AZITHROMYCIN 44893371407 No Longer Active Jillina Alexandru JOHNSON Active MUCINEX D 60-600 MG ORAL TABLET EXTENDED RELEASE 12 HOUR 1 po BID PRN Congestion PSEUDOEPHEDRINE-GUAIFENESIN 04670188224 No Longer Active Jessika Nunes APRN Active CEFDINIR 300 MG ORAL CAPSULE 1 po BID x 10 days CEFDINIR 63006046967 No Longer Active Jillina Alexandru JOHNSON Active PREDNISONE 20 MG ORAL TABLET 2 tabs daily for 3 days, 1 tab daily for 3 days, 1/2 tab daily for 2 days PREDNISONE 00515545069 No Longer Active Jillina Frazell RANGE MECHANIC Active FLUTICASONE PROPIONATE 50 MCG/ACT NASAL SUSPENSION 1 to 2 sprays each nostril daily FLUTICASONE PROPIONATE 26119922777 No Longer Active Jillina Frazell RANGE MECHANIC Active GUAIFENESIN ER 600 MG ORAL TABLET EXTENDED RELEASE 12 HOUR 1 twice a day as needed for congestion GUAIFENESIN 20257898424 No Longer Active Ezekielllina Jiml RANGE MECHANIC Active CEFDINIR 300 MG ORAL CAPSULE by mouth twice a day CEFDINIR 29427524749 No Longer Active Jillina Frazell RANGE MECHANIC Active PREDNISONE 20 MG ORAL TABLET 1 tablet twice daily for 2 days, then 1 tablet once daily for 2 days PREDNISONE 68476712170 No Longer Active Jillina Framarkl RANGE MECHANIC Active PREDNISONE 20 MG ORAL TABLET 2 tabs daily for 3 days, 1 tab daily for 3 days, 1/2 tab daily for 2 days PREDNISONE 70846760931 No Longer Active Margarito Kelley MD Active IRVING-D ALLERGY & CONGESTION TABLET EXTENDED RELEASE 12 HOUR 1 po bid 05/26 FEXOFENADINE-PSEUDOEPHEDRINE [id number] 05895770247 No Longer Active Margarito Kelley MD Active PREDNISONE 20 MG ORAL TABLET 2 tabs daily for 3 days, 1 tab daily for 3 days, 1/2 tab daily for 2 days PREDNISONE 86944761381 No Longer Active Ezekielllina Alexandru JOHNSON Active CEFDINIR 300 MG ORAL CAPSULE 1 cap by mouth twice a day CEFDINIR 64653157018 No Longer Active Jillina Jiml RANGE MECHANIC Active E-Z SPACER DEVICE use with proair inhalier every 4 times as need. SPACER/AERO-HOLDING CHAMBERS 99572305536 No Longer Active Jillina Jiml RANGE MECHANIC Active PROAIR HFA 108 (90 Base) MCG/ACT INHALATION AEROSOL SOLUTION 2 puffs every 4 hours as needed ALBUTEROL SULFATE 14816437425 No Longer Active Ezekielllina Alexandru ONTIVEROSN Active CEFTIN 500 MG ORAL TABLET 1 tablet by mouth twice daily for ten days. CEFUROXIME AXETIL 85370442758 No Longer Active Ezekielllsd Horvath APRN Active PREDNISONE 20 MG ORAL TABLET 2 tabs daily for 3 days, 1 tab daily for 3 days, 1/2 tab daily for 2 days PREDNISONE 94944681463 No Longer Active Margarito Kelley MD Active CEPHALEXIN 500 MG ORAL CAPSULE 1 tablet by mouth three times daily for ten days CEPHALEXIN 84617069122 No Longer Active Renée Adames ALEX Active MEDROL 4 MG ORAL TABLET THERAPY PACK 6 pills on day 1, 5 pills on day 2, 4 pills on day 3, 4 pills on day 4, 2 pills on day 5, 1 pill on day 6 METHYLPREDNISOLONE 11292351846 No Longer Active Annita Mejia MD PhD Active ZITHROMAX Z-MARY 250 MG ORAL TABLET 2 today and then 1 daily for 4 days 03/11 AZITHROMYCIN 64443471277 No Longer Active Annita Mejia MD PhD Active GUAIFENESIN-CODEINE 100-10 MG/5ML ORAL SYRUP 5ml every 4 to 6 hours as needed for cough GUAIFENESIN-CODEINE 85199149444 No Longer Active Annita Mejia MD PhD Active FLONASE 50 MCG/ACT NASAL SUSPENSION 1 spray each nostril am and hs FLUTICASONE PROPIONATE 77152934082 No Longer Active Kendell Coronado MD Active MELOXICAM 15 MG ORAL TABLET 1 po q day for pain with food MELOXICAM 25131339645 No Longer Active Kendell Coronado MD Active HYDROCODONE-ACETAMINOPHEN 5-325 MG ORAL TABLET 1-2 q 4-6 hrs prn pain 20 tabs HYDROCODONE-ACETAMINOPHEN 09384244530 No Longer Active Daniele Mcfadden DO Active PREDNISONE 20 MG ORAL TABLET 1 tablet twice daily for 2 days, then 1 tablet once daily for 2 days PREDNISONE 19071868184 No Longer Active Daniele Mcfadden DO Active PREDNISONE 20 MG ORAL TABLET 1 po bid 2 days, then daily for 2 days PREDNISONE 08739448173 No Longer Active Alexander LOPEZ Active AZITHROMYCIN 250 MG ORAL TABLET 2 po qd x 1 day, then 1 po qd x 4 days 08/05 AZITHROMYCIN 09699050503 No Longer Active Daniele Mcfadden DO Active MUCINEX MAXIMUM STRENGTH TABLET EXTENDED RELEASE 12 HOUR 1 po qd GUAIFENESIN [id number] 87283418257 No Longer Active Daniele Mcfadden DO Active AZITHROMYCIN 250 MG ORAL TABLET 2 po qd x 1 day, then 1 po qd x 4 days 11/26 AZITHROMYCIN 34321100592 No Longer Active Margarito Kelley MD Active MUCINEX MAXIMUM STRENGTH TABLET EXTENDED RELEASE 12 HOUR 1 po qd MUCINEX MAXIMUM STRENGTH TABLET EXTENDED RELEASE 12 HOUR GUAIFENESIN [id number] Inactive PREDNISONE 20 MG ORAL TABLET 1 po bid 2 days, then daily for 2 days PREDNISONE 20 MG ORAL TABLET 024390 PREDNISONE Inactive PREDNISONE 20 MG ORAL TABLET 1 tablet twice daily for 2 days, then 1 tablet once daily for 2 days PREDNISONE 20 MG ORAL TABLET 687413 PREDNISONE Inactive HYDROCODONE-ACETAMINOPHEN 5-325 MG ORAL TABLET 1-2 q 4-6 hrs prn pain 20 tabs HYDROCODONE-ACETAMINOPHEN 5-325 MG ORAL TABLET 438918 HYDROCODONE-ACETAMINOPHEN Inactive MELOXICAM 15 MG ORAL TABLET 1 po q day for pain with food MELOXICAM 15 MG ORAL TABLET 123457 MELOXICAM Inactive FLONASE 50 MCG/ACT NASAL SUSPENSION 1 spray each nostril am and hs FLONASE 50 MCG/ACT NASAL SUSPENSION 3440722 FLUTICASONE PROPIONATE Inactive GUAIFENESIN-CODEINE 100-10 MG/5ML ORAL SYRUP 5ml every 4 to 6 hours as needed for cough GUAIFENESIN-CODEINE 100-10 MG/5ML ORAL SYRUP 223327 GUAIFENESIN-CODEINE Inactive ZITHROMAX Z-MARY 250 MG ORAL TABLET 2 today and then 1 daily for 4 days 03/11 ZITHROMAX Z-MARY 250 MG ORAL TABLET 770273 AZITHROMYCIN Inactive CEFTIN 500 MG ORAL TABLET 1 tablet by mouth twice daily for ten days. CEFTIN 500 MG ORAL TABLET 479459 CEFUROXIME AXETIL Inactive PROAIR HFA 108 (90 [...] CONGESTION TABLET EXTENDED RELEASE 12 HOUR FEXOFENADINE-PSEUDOEPHEDRINE [id number] Inactive PREDNISONE 20 MG ORAL TABLET 1 tablet twice daily for 2 days, then 1 tablet once daily for 2 days PREDNISONE 20 MG ORAL TABLET 880318 PREDNISONE Inactive GUAIFENESIN ER 600 MG ORAL TABLET EXTENDED RELEASE 12 HOUR 1 twice a day as needed for congestion GUAIFENESIN ER 600 MG ORAL TABLET EXTENDED RELEASE 12 HOUR GUAIFENESIN Inactive FLUTICASONE PROPIONATE 50 MCG/ACT NASAL SUSPENSION 1 to 2 sprays each nostril daily FLUTICASONE PROPIONATE 50 MCG/ACT NASAL SUSPENSION 1543991 FLUTICASONE PROPIONATE Inactive MUCINEX D 60-600 MG ORAL TABLET EXTENDED RELEASE 12 HOUR 1 po BID PRN Congestion MUCINEX D 60-600 MG ORAL TABLET EXTENDED RELEASE 12 HOUR PSEUDOEPHEDRINE-GUAIFENESIN Inactive PREDNISONE 20 MG ORAL TABLET two tabs by mouth today, then one tab by mouth days two and three PREDNISONE 20 MG ORAL TABLET 202380 PREDNISONE Inactive AZITHROMYCIN 250 MG ORAL TABLET 2 po qd x 1 day, then 1 po qd x 4 days 11/26 AZITHROMYCIN 250 MG ORAL TABLET 439978 AZITHROMYCIN Inactive AZITHROMYCIN 250 MG ORAL TABLET 2 po qd x 1 day, then 1 po qd x 4 days 08/05 AZITHROMYCIN 250 MG ORAL TABLET 767849 AZITHROMYCIN Inactive MEDROL 4 MG ORAL TABLET THERAPY PACK 6 pills on day 1, 5 pills on day 2, 4 pills on day 3, 4 pills on day 4, 2 pills on day 5, 1 pill on day 6 MEDROL 4 MG ORAL TABLET THERAPY PACK 769628 METHYLPREDNISOLONE Inactive CEPHALEXIN 500 MG ORAL CAPSULE 1 tablet by mouth three times daily for ten days CEPHALEXIN 500 MG ORAL CAPSULE 771969 CEPHALEXIN Inactive PREDNISONE 20 MG ORAL TABLET 2 tabs daily for 3 days, 1 tab daily for 3 days, 1/2 tab daily for 2 days PREDNISONE 20 MG ORAL TABLET 769497 PREDNISONE Inactive CEFDINIR 300 MG ORAL CAPSULE 1 cap by mouth twice a day CEFDINIR 300 MG ORAL CAPSULE 662980 CEFDINIR Inactive PREDNISONE 20 MG ORAL TABLET 2 tabs daily for 3 days, 1 tab daily for 3 days, 1/2 tab daily for 2 days PREDNISONE 20 MG ORAL TABLET 365868 PREDNISONE Inactive PREDNISONE 20 MG ORAL TABLET 2 tabs daily for 3 days, 1 tab daily for 3 days, 1/2 tab daily for 2 days PREDNISONE 20 MG ORAL TABLET 463376 PREDNISONE Inactive CEFDINIR 300 MG ORAL CAPSULE by mouth twice a day CEFDINIR 300 MG ORAL CAPSULE 671643 CEFDINIR Inactive PREDNISONE 20 MG ORAL TABLET 2 tabs daily for 3 days, 1 tab daily for 3 days, 1/2 tab daily for 2 days PREDNISONE 20 MG ORAL TABLET 736873 PREDNISONE Inactive CEFDINIR 300 MG ORAL CAPSULE 1 po BID x 10 days CEFDINIR 300 MG ORAL CAPSULE 956345 CEFDINIR Inactive AZITHROMYCIN 250 MG ORAL TABLET 2 po qd x 1 day, then 1 po qd x 4 days 08/30 AZITHROMYCIN 250 MG ORAL TABLET 579070 AZITHROMYCIN Inactive PREDNISONE 20 MG ORAL TABLET 2 tabs daily for 3 days, 1 tab daily for 3 days, 1/2 tab daily for 2 days start tomorrow 07/31/16 PREDNISONE 20 MG ORAL TABLET 619837 PREDNISONE Inactive AZITHROMYCIN 250 MG ORAL TABLET 2 po qd x 1 day, then 1 po qd x 4 days 07/24 AZITHROMYCIN 250 MG ORAL TABLET 495576 AZITHROMYCIN Inactive Immunizations Vaccine Administration Date Value Standard Description Human Papillomavirus vaccine (Gardasil) #2, (HPV #2) Gardasil [ CVX62] human papilloma virus vaccine, quadrivalent Seasonal influenza vaccine, injectable, containing preservative, for > 3 years old (Afluria, FluLaval, Fluzone, Fluvirin, Fluarix, Agriflu(>=18 yo)) Fluzone (>3 yrs.) [CUP098] Influenza, seasonal, injectable Human Papillomavirus Vaccine (Gardasil) #1 Given (HPV #1) Gardasil [CVX62] human papilloma virus vaccine, quadrivalent hepatitis A immunization #2 Havrix-Pedi hepatitis A vaccine, unspecified formulation Boostrix (Tetanus toxoid, reduced diphtheria toxoid and acellular pertussis vaccine, adsorbed), booster Boostrix [ZQR705] tetanus toxoid, reduced diphtheria toxoid, and acellular [...] Negative;Positive Encounters Code Encounter Date Provider Facility CPT-37144 Level 3 Est. 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-99859 Level 3 Est. Patient 17:42:49 [employer]ORCYCLE DESIGNER Whitley Quiroz [facility]-14834 Level 3 Est. Patient 10:49:47 MOTORCYCLE DESIGNER Griselda Horvath [facility]-11035 Level 3 Est. Patient 08:43:59 MOTORCYCLE DESIGNER Jessika Nunes [facility] CPT-31764 Level 3 Est. Patient 09:05:19 MOTORCYCLE DESIGNER Griselda Horvath [facility] CPT-40628 Level 3 Est. Patient 15:45:46 CDT Griselda Horvath [facility]-81328 Level 3 Est. Patient 14:15:52 CDT Daniele Mcfadden [facility]-77478 Level 3 Est. Patient 13:57:19 MOTORCYCLE DESIGNER Margarito Kelley MD [facility]-44741 Level 3 Est. Patient 09:16:05 MOTORCYCLE DESIGNER Margarito Kelley MD [facility]-07850 Level 3 Est. Patient 15:37:06 MOTORCYCLE DESIGNER Daniele Mcfadden [facility] CPT-09295 Level 3 Est. Patient 11:56:34 MOTORCYCLE DESIGNER Renée Adames [facility] CPT-22770 Level 3 Est. Patient 12:19:42 CDT Daniele Mcfadden [facility] CPT-38684 Level 3 Est. Patient 11:08:45 CDT Annita Mejia MD PhD [facility] CPT-88669 Level 3 Est. Patient 12:00:17 CDT Kendell Coronado MD [facility]-28955 Level 3 Est. Patient 12:27:25 CDT Daniele Mcfadden [facility] CPT-58366 Level 3 Est. Patient 18:45:11 MOTORCYCLE DESIGNER Daniele Mcfadden [facility] CPT-00058 Level 3 Est. Patient 10:12:24 MOTORCYCLE DESIGNER Daniele Mcfadden [facility] CPT-02448 Level 3 Est. Patient 14:35:11 MOTORCYCLE DESIGNER Daniele Mcfadden [facility] CPT-69085 Level 3 Est. Patient 14:11:04 CDT Daniele Mcfadden [facility] CPT-17458 Level 3 Est. Patient 10:52:13 CDT Alexander Estrada [facility] CPT-60097 Level 3 Est. Patient 11:01:08 MOTORCYCLE DESIGNER Daniele Mcfadden [facility] CPT-28914 Level 3 Est. Patient 10:55:[address] [facility] CPT-64836 Level 3 Est. Patient 14:03:08 CDT Daniele Mcfadden [facility] CPT-76956 Level 3 Est. Patient 11:26:19 CDT Margarito Kelley MD [facility] CPT-14826 Level 2 Est. Patient 15:32:04 MOTORCYCLE DESIGNER Daniele Mcfadden [facility] CPT-91416 Level 3 Est. Patient 16:01:26 MOTORCYCLE DESIGNER Daniele Gaetano Bogdan [facility] CPT-77804 Level 3 Est. Patient 06:37:10 MOTORCYCLE DESIGNER Daniele Gaetano Bogdan [facility] Procedures Code Procedure Name Date Entry Date Standard Description CPT-66744 Addl Vx - Ix admin via ID IM or jet injects without counseling by physician 14:37:19 CDT CPT-78059 Meningococcal B, recombinant vaccine 14:37:19 CDT 03/05 CPT-64940 First Vx - Ix admin via ID IM or jet injects without counseling by physician 14:37:19 CDT CPT-16277 Menveo Intramuscular Solution Reconstituted 14:37:19 CDT CPT-75250 Meningococcal Conjugate Vacine (Menactra) 11:20:04 CDT CPT-58108 Throat Culture - LAB USE ONLY 12:15:45 MOTORCYCLE DESIGNER CPT-31305 Shani Flu A/B - LAB USE ONLY 12:15:45 MOTORCYCLE DESIGNER CPT-99065 Rapid Strep (Reflex throat) - LAB USE ONLY 12:15:45 MOTORCYCLE DESIGNER CPT-84753 Rapid Strep (Grp A) - LAB USE ONLY 13:06:06 CDT CPT-54794 Abd compl w upright 12:34:39 CDT CPT-44658 Immunization Single Admin 11:38:41 CDT CPT-10823 Fluzone Quadrivalent Intramuscular Suspension 0.5 ML 11: 38:41 CDT CPT-OV Office Visit 14:45:12 MOTORCYCLE DESIGNER CPT-70494 [employer] all organs plus proximal aorta and distal IVC 2012 12:13:02 MOTORCYCLE DESIGNER CPT-63458 Abd compl w upright 15:12:58 MOTORCYCLE DESIGNER CPT-48927 Venipuncture Draw Fee 14:38:32 MOTORCYCLE DESIGNER CPT-62184 Administration single or combination vaccine inc oral 17 :10:04 CDT CPT-18689 Gardasil 17:10:04 CDT CPT-23203 Venipuncture Draw Fee 16:07:54 MOTORCYCLE DESIGNER CPT-04094 Administration 2+ single or combination vaccines inc oral 17:22:02 CDT CPT-18322 Administration single or combination vaccine inc oral 17 :22:02 CDT CPT-79960 Influenza split virus > age 3 17:22:02 CDT CPT-71187 Gardasil 17:22:02 CDT CPT-51367 Administration 2+ single or combination vaccines inc oral 14:38:31 CDT CPT-93962 Administration single or combination vaccine inc oral 14 :38:31 CDT CPT-99856 Meningococcal Conjugate Vacine (Menactra) 14:38:31 CDT CPT-20807 Gardasil 14:38:31 CDT
--- OUTSIDE RECORDS SUMMARY | 2018-02-15 07:09 | XMS REPORT | Clinical Summary ---
Author Author Admin, [employer] Address Unknown Phone Unavailable Allergies, Adverse Reactions, [...] respiratory infection, viral ICD-465.9 Inactive Katie Gipson PROSPECTING OBSERVER Sinusitis ICD-473.9 Inactive Katie Gipson PROSPECTING OBSERVER 2017 Eustachian tube dysfunction, right ICD-381.81 Inactive Katie Gipson PROSPECTING OBSERVER Pharyngitis-Acute ICD-462 Inactive Katie Gipson PROSPECTING OBSERVER URI ICD-465.9 Inactive Katie Gipson PROSPECTING OBSERVER Allergic rhinitis ICD-477.9 Inactive Katie Gipson PROSPECTING OBSERVER Acute rhinosinusitis ICD-461.9 Inactive Katie Gipson PROSPECTING OBSERVER Fever ICD-780.60 Inactive Katie Gipson PROSPECTING OBSERVER Immunization due ICD-V15.83 Inactive Katie Gipson PROSPECTING OBSERVER Fatigue ICD-780.79 Inactive Margarito Kelley MD 2014 Sinusitis, acute ICD-461.9 Inactive Margarito Kelley MD Medication List Medication Instructions Start Date Stop Date Generic Name NDC Status Provider Patient Instruction PREDNISONE 20 MG ORAL TABLET two tabs by mouth today, then one tab by mouth days two and three PREDNISONE 55002577409 Active Daniele Mcfadden DO Active AZITHROMYCIN 250 MG ORAL TABLET 2 po qd x 1 day, then 1 po qd x 4 days 07/24 AZITHROMYCIN 30082909936 Active Daniele Mcfadden DO Active IRVING-D ALLERGY & CONGESTION 60-120 MG ORAL TABLET EXTENDED RELEASE 12 HOUR 1 tablet twice daily as needed for congestion/allergies FEXOFENADINE-PSEUDOEPHEDRINE 34202018520 Active Holly Sharma Active PREDNISONE 20 MG ORAL TABLET 2 tabs daily for 3 days, 1 tab daily for 3 days, 1/2 tab daily for 2 days start tomorrow 07/31/16 PREDNISONE 00452079183 No Longer Active Jillina Alexandru JOHNSON Active AZITHROMYCIN 250 MG ORAL TABLET 2 po qd x 1 day, then 1 po qd x 4 days 08/30 AZITHROMYCIN 50672964767 No Longer Active Ezekielllina Alexandru JOHNSON Active MUCINEX D 60-600 MG ORAL TABLET EXTENDED RELEASE 12 HOUR 1 po BID PRN Congestion PSEUDOEPHEDRINE-GUAIFENESIN 48822757570 No Longer Active Jessika Nunes APRN Active CEFDINIR 300 MG ORAL CAPSULE 1 po BID x 10 days CEFDINIR 39580155581 No Longer Active Jillina Alexandru JOHNSON Active PREDNISONE 20 MG ORAL TABLET 2 tabs daily for 3 days, 1 tab daily for 3 days, 1/2 tab daily for 2 days PREDNISONE 50247301149 No Longer Active Jillina Frazell [employer]AD Active FLUTICASONE PROPIONATE 50 MCG/ACT NASAL SUSPENSION 1 to 2 sprays each nostril daily FLUTICASONE PROPIONATE 99718900898 No Longer Active Jillina Frazell [employer] LEAD Active GUAIFENESIN ER 600 MG ORAL TABLET EXTENDED RELEASE 12 HOUR 1 twice a day as needed for congestion GUAIFENESIN 14335261312 No Longer Active Jillina Frazell [employer]MENT LEAD Active CEFDINIR 300 MG ORAL CAPSULE by mouth twice a day CEFDINIR 91958334773 No Longer Active Jillina Frazell [employer]MENT LEAD Active PREDNISONE 20 MG ORAL TABLET 1 tablet twice daily for 2 days, then 1 tablet once daily for 2 days PREDNISONE 03460459272 No Longer Active Jillina Frazell [employer]NABLEMENT LEAD Active PREDNISONE 20 MG ORAL TABLET 2 tabs daily for 3 days, 1 tab daily for 3 days, 1/2 tab daily for 2 days PREDNISONE 98332017257 No Longer Active Margarito Kelley MD Active IRVING-D ALLERGY & CONGESTION TABLET EXTENDED RELEASE 12 HOUR 1 po bid 05/26 FEXOFENADINE-PSEUDOEPHEDRINE AP23H-[id number] 90596068852 No Longer Active Margarito Kelley MD Active PREDNISONE 20 MG ORAL TABLET 2 tabs daily for 3 days, 1 tab daily for 3 days, 1/2 tab daily for 2 days PREDNISONE 28635168085 No Longer Active Ezekielllina Framarkl [employer] LEAD Active CEFDINIR 300 MG ORAL CAPSULE 1 cap by mouth twice a day CEFDINIR 63422142361 No Longer Active Jillina Frazell SAL[employer]NABLEMENT LEAD Active E-Z SPACER DEVICE use with proair inhalier every 4 times as need. SPACER/AERO-HOLDING CHAMBERS 68095036087 No Longer Active Jillina Frazell [employer] LEAD Active PROAIR HFA 108 (90 Base) MCG/ACT INHALATION AEROSOL SOLUTION 2 puffs every 4 hours as needed ALBUTEROL SULFATE 74242290450 No Longer Active Ezekielllina Jiml [employer]MENT LEAD Active CEFTIN 500 MG ORAL TABLET 1 tablet by mouth twice daily for ten days. CEFUROXIME AXETIL 87902179729 No Longer Active Ezekielllina Alexandru ONTIVEROSN Active PREDNISONE 20 MG ORAL TABLET 2 tabs daily for 3 days, 1 tab daily for 3 days, 1/2 tab daily for 2 days PREDNISONE 80284830261 No Longer Active Margarito Kelley MD Active CEPHALEXIN 500 MG ORAL CAPSULE 1 tablet by mouth three times daily for ten days CEPHALEXIN 33063365310 No Longer Active Renée Adames ALEX Active MEDROL 4 MG ORAL TABLET THERAPY PACK 6 pills on day 1, 5 pills on day 2, 4 pills on day 3, 4 pills on day 4, 2 pills on day 5, 1 pill on day 6 METHYLPREDNISOLONE 13281034832 No Longer Active Annita Mejia MD PhD Active ZITHROMAX Z-MARY 250 MG ORAL TABLET 2 today and then 1 daily for 4 days 03/11 AZITHROMYCIN 65940719523 No Longer Active Annita Mejia MD PhD Active GUAIFENESIN-CODEINE 100-10 MG/5ML ORAL SYRUP 5ml every 4 to 6 hours as needed for cough GUAIFENESIN-CODEINE 68055774729 No Longer Active Annita Mejia MD PhD Active FLONASE 50 MCG/ACT NASAL SUSPENSION 1 spray each nostril am and hs FLUTICASONE PROPIONATE 22117850633 No Longer Active Kendell Coronado MD Active MELOXICAM 15 MG ORAL TABLET 1 po q day for pain with food MELOXICAM 16623803631 No Longer Active Kendell Coronado MD Active HYDROCODONE-ACETAMINOPHEN 5-325 MG ORAL TABLET 1-2 q 4-6 hrs prn pain 20 tabs HYDROCODONE-ACETAMINOPHEN 68085890687 No Longer Active Daniele Mcfadden DO Active PREDNISONE 20 MG ORAL TABLET 1 tablet twice daily for 2 days, then 1 tablet once daily for 2 days PREDNISONE 48236126128 No Longer Active Daniele Mcfadden DO Active PREDNISONE 20 MG ORAL TABLET 1 po bid 2 days, then daily for 2 days PREDNISONE 47300380997 No Longer Active Alexander LOPEZ Active AZITHROMYCIN 250 MG ORAL TABLET 2 po qd x 1 day, then 1 po qd x 4 days 08/05 AZITHROMYCIN 76048125098 No Longer Active Daniele Mcfadden DO Active MUCINEX MAXIMUM STRENGTH TABLET EXTENDED RELEASE 12 HOUR 1 po qd GUAIFENESIN WS30U-TLE 64501779205 No Longer Active Daniele Mcfadden DO Active AZITHROMYCIN 250 MG ORAL TABLET 2 po qd x 1 day, then 1 po qd x 4 days 11/26 AZITHROMYCIN 86324434622 No Longer Active Margarito Kelley MD Active MUCINEX MAXIMUM STRENGTH TABLET EXTENDED RELEASE 12 HOUR 1 po qd MUCINEX MAXIMUM STRENGTH TABLET EXTENDED RELEASE 12 HOUR GUAIFENESIN [id number] Inactive PREDNISONE 20 MG ORAL TABLET 1 po bid 2 days, then daily for 2 days PREDNISONE 20 MG ORAL TABLET 630355 PREDNISONE Inactive PREDNISONE 20 MG ORAL TABLET 1 tablet twice daily for 2 days, then 1 tablet once daily for 2 days PREDNISONE 20 MG ORAL TABLET 483017 PREDNISONE Inactive HYDROCODONE-ACETAMINOPHEN 5-325 MG ORAL TABLET 1-2 q 4-6 hrs prn pain 20 tabs HYDROCODONE-ACETAMINOPHEN 5-325 MG ORAL TABLET 458081 HYDROCODONE-ACETAMINOPHEN Inactive MELOXICAM 15 MG ORAL TABLET 1 po q day for pain with food MELOXICAM 15 MG ORAL TABLET 929736 MELOXICAM Inactive FLONASE 50 MCG/ACT NASAL SUSPENSION 1 spray each nostril am and hs FLONASE 50 MCG/ACT NASAL SUSPENSION 9715796 FLUTICASONE PROPIONATE Inactive GUAIFENESIN-CODEINE 100-10 MG/5ML ORAL SYRUP 5ml every 4 to 6 hours as needed for cough GUAIFENESIN-CODEINE 100-10 MG/5ML ORAL SYRUP 971018 GUAIFENESIN-CODEINE Inactive ZITHROMAX Z-MARY 250 MG ORAL TABLET 2 today and then 1 daily for 4 days 03/11 ZITHROMAX Z-MARY 250 MG ORAL TABLET 427244 AZITHROMYCIN Inactive CEFTIN 500 MG ORAL TABLET 1 tablet by mouth twice daily for ten days. CEFTIN 500 MG ORAL TABLET 059610 CEFUROXIME AXETIL Inactive PROAIR HFA 108 (90 [...] CONGESTION TABLET EXTENDED RELEASE 12 HOUR FEXOFENADINE-PSEUDOEPHEDRINE [id number]-ELN Inactive PREDNISONE 20 MG ORAL TABLET 1 tablet twice daily for 2 days, then 1 tablet once daily for 2 days PREDNISONE 20 MG ORAL TABLET 983718 PREDNISONE Inactive GUAIFENESIN ER 600 MG ORAL TABLET EXTENDED RELEASE 12 HOUR 1 twice a day as needed for congestion GUAIFENESIN ER 600 MG ORAL TABLET EXTENDED RELEASE 12 HOUR GUAIFENESIN Inactive FLUTICASONE PROPIONATE 50 MCG/ACT NASAL SUSPENSION 1 to 2 sprays each nostril daily FLUTICASONE PROPIONATE 50 MCG/ACT NASAL SUSPENSION 2289545 FLUTICASONE PROPIONATE Inactive MUCINEX D 60-600 MG ORAL TABLET EXTENDED RELEASE 12 HOUR 1 po BID PRN Congestion MUCINEX D 60-600 MG ORAL TABLET EXTENDED RELEASE 12 HOUR PSEUDOEPHEDRINE-GUAIFENESIN Inactive AZITHROMYCIN 250 MG ORAL TABLET 2 po qd x 1 day, then 1 po qd x 4 days 11/26 AZITHROMYCIN 250 MG ORAL TABLET 309227 AZITHROMYCIN Inactive AZITHROMYCIN 250 MG ORAL TABLET 2 po qd x 1 day, then 1 po qd x 4 days 08/05 AZITHROMYCIN 250 MG ORAL TABLET 475538 AZITHROMYCIN Inactive MEDROL 4 MG ORAL TABLET THERAPY PACK 6 pills on day 1, 5 pills on day 2, 4 pills on day 3, 4 pills on day 4, 2 pills on day 5, 1 pill on day 6 MEDROL 4 MG ORAL TABLET THERAPY PACK 245664 METHYLPREDNISOLONE Inactive CEPHALEXIN 500 MG ORAL CAPSULE 1 tablet by mouth three times daily for ten days CEPHALEXIN 500 MG ORAL CAPSULE 003436 CEPHALEXIN Inactive PREDNISONE 20 MG ORAL TABLET 2 tabs daily for 3 days, 1 tab daily for 3 days, 1/2 tab daily for 2 days PREDNISONE 20 MG ORAL TABLET 193548 PREDNISONE Inactive CEFDINIR 300 MG ORAL CAPSULE 1 cap by mouth twice a day CEFDINIR 300 MG ORAL CAPSULE 493868 CEFDINIR Inactive PREDNISONE 20 MG ORAL TABLET 2 tabs daily for 3 days, 1 tab daily for 3 days, 1/2 tab daily for 2 days PREDNISONE 20 MG ORAL TABLET 373986 PREDNISONE Inactive PREDNISONE 20 MG ORAL TABLET 2 tabs daily for 3 days, 1 tab daily for 3 days, 1/2 tab daily for 2 days PREDNISONE 20 MG ORAL TABLET 068487 PREDNISONE Inactive CEFDINIR 300 MG ORAL CAPSULE by mouth twice a day CEFDINIR 300 MG ORAL CAPSULE 188617 CEFDINIR Inactive PREDNISONE 20 MG ORAL TABLET 2 tabs daily for 3 days, 1 tab daily for 3 days, 1/2 tab daily for 2 days PREDNISONE 20 MG ORAL TABLET 548324 PREDNISONE Inactive CEFDINIR 300 MG ORAL CAPSULE 1 po BID x 10 days CEFDINIR 300 MG ORAL CAPSULE 632500 CEFDINIR Inactive AZITHROMYCIN 250 MG ORAL TABLET 2 po qd x 1 day, then 1 po qd x 4 days 08/30 AZITHROMYCIN 250 MG ORAL TABLET 151166 AZITHROMYCIN Inactive PREDNISONE 20 MG ORAL TABLET 2 tabs daily for 3 days, 1 tab daily for 3 days, 1/2 tab daily for 2 days start tomorrow 07/31/16 PREDNISONE 20 MG ORAL TABLET 769668 PREDNISONE Inactive Immunizations Vaccine Administration Date Value Standard Description Human Papillomavirus vaccine (Gardasil) #2, (HPV #2) Gardasil [ CVX62] human papilloma virus vaccine, quadrivalent Seasonal influenza vaccine, injectable, containing preservative, for > 3 years old (Afluria, FluLaval, Fluzone, Fluvirin, Fluarix, Agriflu(>=18 yo)) Fluzone (>3 yrs.) [OGM014] Influenza, seasonal, injectable Human Papillomavirus Vaccine (Gardasil) #1 Given (HPV #1) Gardasil [CVX62] human papilloma virus vaccine, quadrivalent hepatitis A immunization #2 Havrix-Pedi hepatitis A vaccine, unspecified formulation Boostrix (Tetanus toxoid, reduced diphtheria toxoid and acellular pertussis vaccine, adsorbed), booster Boostrix [QOM125] tetanus toxoid, reduced diphtheria toxoid, and acellular [...] Negative;Positive Encounters Code Encounter Date Provider Facility CPT-62278 Level 3 Est. Patient 17:42:49 FOOD SELECTOR [facility] Level [facility] Est. Patient 10:49:47 FOOD SELECTOR Griselda Horvath [facility] CPT-56533 Level 3 Est. Patient 08:43:59 FOOD SELECTOR Jessika Nunes [facility] CPT-72197 Level 3 Est. Patient 09:05:19 FOOD SELECTOR Griselda Horvath [facility] CPT-83430 Level 3 Est. Patient 15:45:46 CDT Griselda Horvath [facility] CPT-07498 Level 3 Est. Patient 14:15:52 CDT Daniele W Bogdan [facility] CPT-40881 Level 3 Est. Patient 13:57:19 FOOD SELECTOR Margarito Kelley MD [facility] CPT-95630 Level 3 Est. Patient 09:16:05 FOOD SELECTOR Margarito Kelley MD [facility] CPT-39742 Level 3 Est. Patient 15:37:06 FOOD SELECTOR Daniele Mcfadden [facility] CPT-03460 Level 3 Est. Patient 11:56:34 FOOD SELECTOR Renée Adames APRN [facility] CPT-62388 Level 3 Est. Patient 12:19:42 CDT Daniele Mcfadden [facility] CPT-79372 Level 3 Est. Patient 11:08:45 CDT Annita Mejia MD [facility] CPT-05694 Level 3 Est. Patient 12:00:17 CDT Kendell Coronado MD [facility] CPT-09784 Level 3 Est. Patient 12:27:25 CDT Daniele Mcfadden [facility] CPT-39583 Level 3 Est. Patient 18:45:11 FOOD SELECTOR Daniele Mcfadden [facility] CPT-54880 Level 3 Est. Patient 10:12:24 FOOD SELECTOR Daniele Mcfadden [facility] CPT-07925 Level 3 Est. Patient 14:35:11 FOOD SELECTOR Daniele Mcfadden [facility] CPT-54976 Level 3 Est. Patient 14:11:04 CDT Daniele Mcfadden [facility] CPT-47890 Level 3 Est. Patient 10:52:13 CDT Alexander LOPEZ [facility] CPT-98407 Level 3 Est. Patient 11:01:08 FOOD SELECTOR Daniele Mcfadden [facility] CPT-04443 Level 3 Est. Patient 10:55:35 CDT Daniele Mcfadden [facility] CPT-90442 Level 3 Est. Patient 14:03:08 CDT Daniele Mcfadden [facility] CPT-88802 Level 3 Est. Patient 11:26:19 CDT Margarito Kelley MD [facility] CPT-20280 Level 2 Est. Patient 15:32:04 FOOD SELECTOR Daniele Mcfadden [facility] CPT-00410 Level 3 Est. Patient 16:01:26 FOOD SELECTOR Daniele Mcfadden [facility] CPT-87877 Level 3 Est. Patient 06:37:10 FOOD SELECTOR Daniele Mcfadden [facility] Procedures Code Procedure Name Date Entry Date Standard Description CPT-49801 Addl Vx - Ix admin via ID IM or jet injects without counseling by physician 14:37:19 CDT CPT-20117 Meningococcal B, recombinant vaccine 14:37:19 CDT 03/05 CPT-21376 First Vx - Ix admin via ID IM or jet injects without counseling by physician 14:37:19 CDT CPT-44794 Menveo Intramuscular Solution Reconstituted 14:37:19 CDT CPT-74276 Meningococcal Conjugate Vacine (Menactra) 11:20:04 CDT CPT-02757 Throat Culture - LAB USE ONLY 12:15:45 FOOD SELECTOR CPT-86180 Shani Flu A/B - LAB USE ONLY 12:15:45 FOOD SELECTOR CPT-23806 Rapid Strep (Reflex throat) - LAB USE ONLY 12:15:45 FOOD SELECTOR CPT-04533 Rapid Strep (Grp A) - LAB USE ONLY 13:06:06 CDT CPT-42751 Abd compl w upright 12:34:39 CDT CPT-41928 Immunization Single Admin 11:38:41 CDT CPT-63675 Fluzone Quadrivalent Intramuscular Suspension 0.5 ML 11: 38:41 CDT CPT-OV Office Visit 14:45:12 FOOD SELECTOR CPT-10792 Sono abd com inc all organs plus proximal aorta and distal IVC 2012 12:13:02 FOOD SELECTOR CPT-79762 Abd compl w upright 15:12:58 FOOD SELECTOR CPT-55487 Venipuncture Draw Fee 14:38:32 FOOD SELECTOR CPT-06989 Administration single or combination vaccine inc oral 17 :10:04 CDT CPT-16032 Gardasil 17:10:04 CDT CPT-97027 Venipuncture Draw Fee 16:07:54 FOOD SELECTOR CPT-34251 Administration 2+ single or combination vaccines inc oral 17:22:02 CDT CPT-94031 Administration single or combination vaccine inc oral 17 :22:02 CDT CPT-02557 Influenza split virus > age 3 17:22:02 CDT CPT-64815 Gardasil 17:22:02 CDT CPT-72253 Administration 2+ single or combination vaccines inc oral 14:38:31 CDT CPT-64367 Administration single or combination vaccine inc oral 14 :38:31 CDT CPT-09766 Meningococcal Conjugate Vacine (Menactra) 14:38:31 CDT CPT-61706 Gardasil 14:38:31 CDT
--- OUTSIDE RECORDS SUMMARY | 2018-02-15 07:10 | XMS REPORT | Clinical Summary ---
Author Author Admin, [facility] Organization [employer] Address Unknown Phone Unavailable Allergies, Adverse Reactions, [...] unspecified site Sinusitis 473.9 Active Griselda Horvath CLAIMS SUPPORT SPECIALIST Unspecified sinusitis (chronic) Eustachian tube dysfunction, right 381.81 Active Margarito Kelley MD Dysfunction of Eustachian tube Pharyngitis-Acute 462 Active Daniele Mcfadden DO Acute pharyngitis URI 465.9 Active Griselda Horvath CLAIMS SUPPORT SPECIALIST Acute upper respiratory infections of unspecified site Allergic rhinitis 477.9 Active Jessika Nunes CLAIMS SUPPORT SPECIALIST Allergic rhinitis, cause unspecified Acute rhinosinusitis 461.9 Active Jessika Nunes CLAIMS SUPPORT SPECIALIST Acute sinusitis, unspecified Fever 780.60 Active Griselda Horvaht CLAIMS SUPPORT SPECIALIST Fever, unspecified CONCUSSION WITH LOC OF 30 MINUTES [...] for 2 days start tomorrow 07/31/16 PREDNISONE [id number] No Longer Active Jillina Frazell CLAIMS SUPPORT SPECIALIST Active AZITHROMYCIN 250 MG TABS 2 po qd x 1 day, then 1 po qd x 4 days AZITHROMYCIN 54603888907 No Longer Active Jillina Frazell CLAIMS SUPPORT SPECIALIST Active MUCINEX D 60-600 MG [id number] 1 po BID PRN Congestion PSEUDOEPHEDRINE-GUAIFENESIN 56689615685 No Longer Active Jessikatanner Nunes CLAIMS SUPPORT SPECIALIST Active CEFDINIR 300 MG CAPS 1 po BID x 10 days CEFDINIR 34662981867 No Longer Active Jillina Frazell CLAIMS SUPPORT SPECIALIST Active PREDNISONE 20 MG TAB 2 tabs daily for 3 days, 1 tab daily for 3 days, 1/2 tab daily for 2 days PREDNISONE 65711825236 No Longer Active Jillina Frazell CLAIMS SUPPORT SPECIALIST Active FLUTICASONE PROPIONATE 50 MCG/ACT SUSP 1 to 2 sprays each nostril daily 03/20 FLUTICASONE PROPIONATE 86225138735 No Longer Active Jillina Frazell CLAIMS SUPPORT SPECIALIST Active GUAIFENESIN 600 MG [id number] 1 twice a day as needed for congestion GUAIFENESIN 58211193132 No Longer Active Jillina Frazell CLAIMS SUPPORT SPECIALIST Active CEFDINIR 300 MG CAPS by mouth twice a day CEFDINIR 36238225591 No Longer Active Jillina Frazell CLAIMS SUPPORT SPECIALIST Active PREDNISONE 20 MG TAB 1 tablet twice daily for 2 days, then 1 tablet once daily for 2 days PREDNISONE 58450000721 No Longer Active Jillina Frazell CLAIMS SUPPORT SPECIALIST Active PREDNISONE 20 MG TAB 2 tabs daily for 3 days, 1 tab daily for 3 days, 1/2 tab daily for 2 days PREDNISONE 62706591872 No Longer Active Margarito Kelley MD Active IRVING-D ALLERGY & CONGESTION [id number] 1 po bid FEXOFENADINE-PSEUDOEPHEDRINE [id number] 97876729951 No Longer Active Margarito Kelley MD Active PREDNISONE 20 MG TAB 2 tabs daily for 3 days, 1 tab daily for 3 days, 1/2 tab daily for 2 days PREDNISONE 29042896790 No Longer Active Jillina Frazell CLAIMS SUPPORT SPECIALIST Active CEFDINIR 300 MG CAPS 1 cap by mouth twice a day CEFDINIR 43104905444 No Longer Active Jillina Frazell CLAIMS SUPPORT SPECIALIST Active E-Z SPACER ERIBERTO use with proair inhalier every 4 times as need. SPACER/AERO-HOLDING CHAMBERS 36188115174 No Longer Active Jillina Frazell CLAIMS SUPPORT SPECIALIST Active PROAIR HFA 108 (90 BASE) MCG/ACT AERS 2 puffs every 4 hours as needed 2014 ALBUTEROL SULFATE 21346315730 No Longer Active Jillina Frazell CLAIMS SUPPORT SPECIALIST Active CEFTIN 500 MG TAB 1 tablet by mouth twice daily for ten days. CEFUROXIME AXETIL 25994268431 No Longer Active Jillina Frazell CLAIMS SUPPORT SPECIALIST Active PREDNISONE 20 MG TAB 2 tabs daily for 3 days, 1 tab daily for 3 days, 1/2 tab daily for 2 days PREDNISONE 08763659437 No Longer Active Margarito Kelley MD Active CEPHALEXIN 500 MG CAPS 1 tablet by mouth three times daily for ten days 06/25 CEPHALEXIN 66955155692 No Longer Active Renée Adames APRN Active MEDROL (MARY) 4 MG TABS 6 pills on day 1, 5 pills on day 2, 4 pills on day 3, 4 pills on day 4, 2 pills on day 5, 1 pill on day 6 METHYLPREDNISOLONE 13603641493 No Longer Active Annita Mejia MD PhD Active ZITHROMAX Z-MARY 250 MG TABS 2 today and then 1 daily for 4 days AZITHROMYCIN 10309212067 No Longer Active Annita Mejia MD PhD Active GUAIFENESIN-CODEINE 100-10 MG/5ML SYRP 5ml every 4 to 6 hours as needed for cough GUAIFENESIN-CODEINE 64034038433 No Longer Active Annita Mejia MD PhD Active FLONASE 50 MCG/ACT SUSP 1 spray each nostril am and hs FLUTICASONE PROPIONATE 89079897157 No Longer Active Kendell Coronado MD Active MELOXICAM 15 MG TABS 1 po q day for pain with food MELOXICAM 46152119646 No Longer Active Kendell Coronado MD Active HYDROCODONE-ACETAMINOPHEN 5-325 MG TABS 1-2 q 4-6 hrs prn pain 20 tabs 07/04 HYDROCODONE-ACETAMINOPHEN 32846806711 No Longer Active Daniele Mcfadden DO Active PREDNISONE 20 MG TAB 1 tablet twice daily for 2 days, then 1 tablet once daily for 2 days PREDNISONE 02149423825 No Longer Active Daniele Mcfadden DO Active PREDNISONE 20 MG TAB 1 po bid 2 days, then daily for 2 days 12/27 PREDNISONE 11769901769 No Longer Active Alexander LOPEZ Active AZITHROMYCIN 250 MG TABS 2 po qd x 1 day, then 1 po qd x 4 days AZITHROMYCIN 81888480056 No Longer Active Daniele Mcfadden DO Active MUCINEX MAXIMUM STRENGTH [id number] 1 po qd GUAIFENESIN XR12H- TAB 34484477328 No Longer Active Daniele Mcfadden DO Active AZITHROMYCIN 250 MG TABS 2 po qd x 1 day, then 1 po qd x 4 days AZITHROMYCIN 93996257668 No Longer Active Margarito Kelley MD Active MUCINEX MAXIMUM STRENGTH [id number]-MWC 1 po qd MUCINEX MAXIMUM STRENGTH [id number] GUAIFENESIN [id number]-WVF Inactive PREDNISONE 20 MG TAB 1 po bid 2 days, then daily for 2 days 12/27 PREDNISONE 20 MG TAB 182322 PREDNISONE Inactive PREDNISONE 20 MG TAB 1 tablet twice daily for 2 days, then 1 tablet once daily for 2 days PREDNISONE 20 MG TAB 322971 PREDNISONE Inactive HYDROCODONE-ACETAMINOPHEN 5-325 MG TABS 1-2 q 4-6 hrs prn pain 20 tabs 07/04 HYDROCODONE-ACETAMINOPHEN 5-325 MG TABS 212611 HYDROCODONE- ACETAMINOPHEN Inactive MELOXICAM 15 MG TABS 1 po q day for pain with food MELOXICAM 15 MG TABS 417131 MELOXICAM Inactive FLONASE 50 MCG/ACT SUSP 1 spray each nostril am and hs FLONASE 50 MCG/ACT SUSP FLUTICASONE PROPIONATE Inactive GUAIFENESIN-CODEINE 100-10 MG/5ML SYRP 5ml every 4 to 6 hours as needed for cough GUAIFENESIN-CODEINE 100-10 MG/5ML SYRP 058372 GUAIFENESIN-CODEINE Inactive ZITHROMAX Z-MARY 250 MG TABS 2 today and then 1 daily for 4 days ZITHROMAX Z-MARY 250 MG TABS 1610184 AZITHROMYCIN Inactive CEFTIN 500 MG TAB 1 tablet by mouth twice daily for ten days. CEFTIN 500 MG TAB 086586 CEFUROXIME AXETIL Inactive PROAIR HFA 108 (90 BASE) MCG/ACT AERS 2 puffs every 4 hours as needed 2014 PROAIR HFA 108 (90 BASE) MCG/ACT AERS ALBUTEROL SULFATE Inactive E-Z SPACER ERIBERTO use with proair inhalier every 4 times as need. E-Z SPACER ERIBERTO SPACER/AERO-HOLDING CHAMBERS Inactive IRVING-D ALLERGY & CONGESTION [id number] 1 po bid IRVING-D ALLERGY & CONGESTION [id number]-[id number] FEXOFENADINE-PSEUDOEPHEDRINE XR12H- TAB Inactive PREDNISONE 20 MG TAB 1 tablet twice daily for 2 days, then 1 tablet once daily for 2 days PREDNISONE 20 MG TAB 535239 PREDNISONE Inactive GUAIFENESIN 600 MG [id number]-NPT 1 twice a day as needed for congestion GUAIFENESIN 600 MG [id number] GUAIFENESIN Inactive FLUTICASONE PROPIONATE 50 MCG/ACT SUSP 1 to 2 sprays each nostril daily 03/20 FLUTICASONE PROPIONATE 50 MCG/ACT SUSP 7850392 FLUTICASONE PROPIONATE Inactive MUCINEX D 60-600 MG [id number] 1 po BID PRN Congestion MUCINEX D 60-600 MG [id number] PSEUDOEPHEDRINE-GUAIFENESIN Inactive AZITHROMYCIN 250 MG TABS 2 po qd x 1 day, then 1 po qd x 4 days AZITHROMYCIN 250 MG TABS 8858353 AZITHROMYCIN Inactive AZITHROMYCIN 250 MG TABS 2 po qd x 1 day, then 1 po qd x 4 days AZITHROMYCIN 250 MG TABS 5091480 AZITHROMYCIN Inactive MEDROL (MARY) 4 MG TABS 6 pills on day 1, 5 pills on day 2, 4 pills on day 3, 4 pills on day 4, 2 pills on day 5, 1 pill on day 6 MEDROL (MARY) 4 MG TABS 654629 METHYLPREDNISOLONE Inactive CEPHALEXIN 500 MG CAPS 1 tablet by mouth three times daily for ten days 06/25 CEPHALEXIN 500 MG CAPS 791882 CEPHALEXIN Inactive PREDNISONE 20 MG TAB 2 tabs daily for 3 days, 1 tab daily for 3 days, 1/2 tab daily for 2 days PREDNISONE 20 MG TAB 349275 PREDNISONE Inactive CEFDINIR 300 MG CAPS 1 cap by mouth twice a day CEFDINIR 300 MG CAPS 013003 CEFDINIR Inactive PREDNISONE 20 MG TAB 2 tabs daily for 3 days, 1 tab daily for 3 days, 1/2 tab daily for 2 days PREDNISONE 20 MG TAB 539970 PREDNISONE Inactive PREDNISONE 20 MG TAB 2 tabs daily for 3 days, 1 tab daily for 3 days, 1/2 tab daily for 2 days PREDNISONE 20 MG TAB 034481 PREDNISONE Inactive CEFDINIR 300 MG CAPS by mouth twice a day CEFDINIR 300 MG CAPS 20021026 CEFDINIR Inactive PREDNISONE 20 MG TAB 2 tabs daily for 3 days, 1 tab daily for 3 days, 1/2 tab daily for 2 days PREDNISONE 20 MG TAB 019290 PREDNISONE Inactive CEFDINIR 300 MG CAPS 1 po BID x 10 days CEFDINIR 300 MG CAPS 20021026 CEFDINIR Inactive AZITHROMYCIN 250 MG TABS 2 po qd x 1 day, then 1 po qd x 4 days AZITHROMYCIN 250 MG TABS 9207366 AZITHROMYCIN Inactive PREDNISONE 20 MG TAB 2 tabs daily for 3 days, 1 tab daily for 3 days, 1/2 tab daily for 2 days start tomorrow 07/31/16 PREDNISONE 20 MG TAB 571966 PREDNISONE Inactive Immunizations Vaccine Administration Date Value Standard Description Human Papillomavirus vaccine (Gardasil) #2, (HPV #2) Gardasil [ CVX62] human papilloma virus vaccine, quadrivalent Seasonal influenza vaccine, injectable, containing preservative, for > 3 years old (Afluria, FluLaval, Fluzone, Fluvirin, Fluarix, Agriflu(>=18 yo)) Fluzone (>3 yrs.) [FIX948] Influenza, seasonal, injectable Human Papillomavirus Vaccine (Gardasil) #1 Given (HPV #1) Gardasil [CVX62] human papilloma virus vaccine, quadrivalent hepatitis A immunization #2 Havrix-Pedi hepatitis A vaccine, unspecified formulation Boostrix (Tetanus toxoid, reduced diphtheria toxoid and acellular pertussis vaccine, adsorbed), booster Boostrix [IVZ603] tetanus toxoid, reduced diphtheria toxoid, and acellular [...] immunization #4 DTaP DPT immunization #3 DTaP hepatitis B vaccine #3 Historical hepatitis B vaccine, unspecified formulation Hemophilus influenza B immunization #3 ProHIBit Haemophilus [...] Negative;Positive Encounters Code Encounter Date Provider Facility CPT-37464 Level 3 Est. Patient 10:49:47 PIPELINES LABORER Griselda Horvath [facility] CPT-99172 Level 3 Est. Patient 08:43:59 PIPELINES LABORER Jessika Des [facility] CPT-22192 Level 3 Est. Patient 09:05:19 PIPELINES LABORER Griselda Horvtah [facility]-02705 Level 3 Est. Patient 15:45:46 CDT Griselda Horvath [facility] CPT-93189 Level 3 Est. Patient 14:15:52 CDT Daniele Mcfadden [facility]-66262 Level 3 Est. Patient 13:57:19 PIPELINES LABORER Margarito Kelley MD [facility]-35040 Level 3 Est. Patient 09:16:05 PIPELINES LABORER Margarito Kelley MD [facility] CPT-26371 Level 3 Est. Patient 15:37:06 PIPELINES LABORER Daniele Mcfadden [facility] CPT-09196 Level 3 Est. Patient 11:56:34 PIPELINES LABORER Renée Adames [facility] CPT-39222 Level 3 Est. Patient 12:19:42 CDT Daniele Mcfadden [facility] CPT-39777 Level 3 Est. Patient 11:08:45 CDT Annita Mejia MD PhD [facility] CPT-35784 Level 3 Est. Patient 12:00:17 CDT Kendell Coronado MD [facility] CPT-54837 Level 3 Est. Patient 12:27:25 CDT Daniele Mcfadden [facility]-77748 Level 3 Est. Patient 18:45:11 PIPELINES LABORER Daniele Mcfadden [facility] CPT-88810 Level 3 Est. Patient 10:12:24 PIPELINES LABORER Daniele Mcfadden [facility] CPT-55788 Level 3 Est. Patient 14:35:11 PIPELINES LABORER Daniele Mcfadden [facility] CPT-34649 Level 3 Est. Patient 14:11:04 CDT Daniele Mcfadden [facility] CPT-12754 Level 3 Est. Patient 10:52:13 CDT Alexander LOPEZ [facility] CPT-44182 Level 3 Est. Patient 11:01:08 PIPELINES LABORER Daniele Mcfadden [facility] CPT-07983 Level 3 Est. Patient 10:55:35 CDT Daniele Mcfadden [facility] CPT-22893 Level 3 Est. Patient 14:03:08 CDT Daniele Mcfadden [facility] CPT-75003 Level 3 Est. Patient 11:26:19 CDT Margarito Kelley MD [facility] CPT-78397 Level 2 Est. Patient 15:32:04 PIPELINES LABORER Daniele Mcfadden [facility] CPT-90078 Level 3 Est. Patient 16:01:26 PIPELINES LABORER Daniele Mcfadden [facility] CPT-13438 Level 3 Est. Patient 06:37:10 PIPELINES LABORER Daniele Mcfadden [facility] Procedures Code Procedure Name Date Entry Date Standard Description CPT-32594 Throat Culture - LAB USE ONLY 12:15:45 PIPELINES LABORER CPT-55088 Misa Flu A/B - LAB USE ONLY 12:15:45 PIPELINES LABORER CPT-64338 Rapid Strep (Reflex throat) - LAB USE ONLY 12:15:45 PIPELINES LABORER CPT-34897 Rapid Strep (Grp A) - LAB USE ONLY 13:06:06 CDT CPT-21913 Abd compl w upright 12:34:39 CDT CPT-48966 Immunization Single Admin 11:38:41 CDT CPT-29133 Fluzone Quadrivalent Intramuscular Suspension 0.5 ML 11: 38:41 CDT CPT-OV Office Visit 14:45:12 PIPELINES LABORER CPT-28842 [employer] all organs plus proximal aorta and distal IVC 2012 12:13:02 PIPELINES LABORER CPT-31565 Abd compl w upright 15:12:58 PIPELINES LABORER CPT-37251 Venipuncture Draw Fee 14:38:32 PIPELINES LABORER CPT-30447 Administration single or combination vaccine inc oral 17 :10:04 CDT CPT-18267 Gardasil 17:10:04 CDT CPT-16730 Venipuncture Draw Fee 16:07:54 PIPELINES LABORER CPT-48823 Administration 2+ single or combination vaccines inc oral 17:22:02 CDT CPT-44840 Administration single or combination vaccine inc oral 17 :22:02 CDT CPT-01001 Influenza split virus > age 3 17:22:02 CDT CPT-55517 Gardasil 17:22:02 CDT CPT-06869 Administration 2+ single or combination vaccines inc oral 14:38:31 CDT CPT-00704 Administration single or combination vaccine inc oral 14 :38:31 CDT CPT-63846 Meningococcal Conjugate Vacine (Menactra) 14:38:31 CDT CPT-80563 Gardasil 14:38:31 CDT
--- OUTSIDE RECORDS SUMMARY | 2018-02-15 07:11 | XMS REPORT | Clinical Summary ---
Author Author Admin, Ludmila Organization [employer] Address Unknown Phone Unavailable Allergies, Adverse Reactions, [...] unspecified site Sinusitis 473.9 Active Griselda Horvath MEDICAL ADVISOR Unspecified sinusitis (chronic) Eustachian tube dysfunction, right 381.81 Active Margarito Kelley MD Dysfunction of Eustachian tube Pharyngitis-Acute 462 Active Daniele Mcfadden DO Acute pharyngitis URI 465.9 Active Griselda Horvath MEDICAL ADVISOR Acute upper respiratory infections of unspecified site Allergic rhinitis 477.9 Active Jessika Nunes MEDICAL ADVISOR Allergic rhinitis, cause unspecified Acute rhinosinusitis 461.9 Active Jessika Nunes MEDICAL ADVISOR Acute sinusitis, unspecified Fever 780.60 Active Griselda Horvath MEDICAL ADVISOR Fever, unspecified ALLERGIC RHINITIS ICD-477.9 Inactive Errol [...] for 2 days start tomorrow 07/31/16 PREDNISONE 96536207798 Active Jillina Frazell MEDICAL ADVISOR Active AZITHROMYCIN 250 MG TABS 2 po qd x 1 day, then 1 po qd x 4 days AZITHROMYCIN 73770229181 Active Jillina Frazell MEDICAL ADVISOR Active MUCINEX D 60-600 MG [id number] 1 po BID PRN Congestion PSEUDOEPHEDRINE-GUAIFENESIN 48530429527 No Longer Active Jessika Nunes MEDICAL ADVISOR Active CEFDINIR 300 MG CAPS 1 po BID x 10 days CEFDINIR 76716652803 No Longer Active Jillina Frazell MEDICAL ADVISOR Active PREDNISONE 20 MG TAB 2 tabs daily for 3 days, 1 tab daily for 3 days, 1/2 tab daily for 2 days PREDNISONE 93189601853 No Longer Active Jillina Frazell MEDICAL ADVISOR Active FLUTICASONE PROPIONATE 50 MCG/ACT SUSP 1 to 2 sprays each nostril daily 03/20 FLUTICASONE PROPIONATE 43841148756 No Longer Active Jillina Frazell MEDICAL ADVISOR Active GUAIFENESIN 600 MG [id number] 1 twice a day as needed for congestion GUAIFENESIN 88287116429 No Longer Active Jillina Frazell MEDICAL ADVISOR Active CEFDINIR 300 MG CAPS by mouth twice a day CEFDINIR 28985937839 No Longer Active Jillina Frazell MEDICAL ADVISOR Active PREDNISONE 20 MG TAB 1 tablet twice daily for 2 days, then 1 tablet once daily for 2 days PREDNISONE 28269840540 No Longer Active Jillina Frazell MEDICAL ADVISOR Active PREDNISONE 20 MG TAB 2 tabs daily for 3 days, 1 tab daily for 3 days, 1/2 tab daily for 2 days PREDNISONE 59579310849 No Longer Active Margarito Kelley MD Active IRVING-D ALLERGY & CONGESTION [id number] 1 po bid FEXOFENADINE-PSEUDOEPHEDRINE [id number] 92434339152 No Longer Active Margarito Kelley MD Active PREDNISONE 20 MG TAB 2 tabs daily for 3 days, 1 tab daily for 3 days, 1/2 tab daily for 2 days PREDNISONE 38036149449 No Longer Active Jillina Frazell MEDICAL ADVISOR Active CEFDINIR 300 MG CAPS 1 cap by mouth twice a day CEFDINIR 33132177867 No Longer Active Jillina Frazell MEDICAL ADVISOR Active E-Z SPACER ERIBERTO use with proair inhalier every 4 times as need. SPACER/AERO-HOLDING CHAMBERS 31279967222 No Longer Active Jillina Frazell MEDICAL ADVISOR Active PROAIR HFA 108 (90 BASE) MCG/ACT AERS 2 puffs every 4 hours as needed 2014 ALBUTEROL SULFATE 56880282985 No Longer Active Jillina Frazell MEDICAL ADVISOR Active CEFTIN 500 MG TAB 1 tablet by mouth twice daily for ten days. CEFUROXIME AXETIL 95075516708 No Longer Active Ezekielllina Frazell MEDICAL ADVISOR Active PREDNISONE 20 MG TAB 2 tabs daily for 3 days, 1 tab daily for 3 days, 1/2 tab daily for 2 days PREDNISONE 00092625268 No Longer Active Margarito Kelley MD Active CEPHALEXIN 500 MG CAPS 1 tablet by mouth three times daily for ten days 06/25 CEPHALEXIN 75248196226 No Longer Active Renée Adames APRN Active MEDROL (MARY) 4 MG TABS 6 pills on day 1, 5 pills on day 2, 4 pills on day 3, 4 pills on day 4, 2 pills on day 5, 1 pill on day 6 METHYLPREDNISOLONE 83730189183 No Longer Active Annita Mejia MD PhD Active ZITHROMAX Z-MARY 250 MG TABS 2 today and then 1 daily for 4 days AZITHROMYCIN 46313118674 No Longer Active Annita Mejia MD PhD Active GUAIFENESIN-CODEINE 100-10 MG/5ML SYRP 5ml every 4 to 6 hours as needed for cough GUAIFENESIN-CODEINE 17685257220 No Longer Active Annita Mejia MD PhD Active FLONASE 50 MCG/ACT SUSP 1 spray each nostril am and hs FLUTICASONE PROPIONATE 61673120269 No Longer Active Kendell Coronado MD Active MELOXICAM 15 MG TABS 1 po q day for pain with food MELOXICAM 83523157741 No Longer Active Kendell Coronado MD Active HYDROCODONE-ACETAMINOPHEN 5-325 MG TABS 1-2 q 4-6 hrs prn pain 20 tabs 07/04 HYDROCODONE-ACETAMINOPHEN 68373971213 No Longer Active Daniele Mcfadden DO Active PREDNISONE 20 MG TAB 1 tablet twice daily for 2 days, then 1 tablet once daily for 2 days PREDNISONE 85139048786 No Longer Active Daniele Mcfadden DO Active PREDNISONE 20 MG TAB 1 po bid 2 days, then daily for 2 days 12/27 PREDNISONE 54543744735 No Longer Active Alexander LOPEZ Active AZITHROMYCIN 250 MG TABS 2 po qd x 1 day, then 1 po qd x 4 days AZITHROMYCIN 99028895868 No Longer Active Daniele Mcfadden DO Active MUCINEX MAXIMUM STRENGTH [id number] 1 po qd GUAIFENESIN XR12H- TAB 85128168206 No Longer Active Daniele Mcfadden DO Active AZITHROMYCIN 250 MG TABS 2 po qd x 1 day, then 1 po qd x 4 days AZITHROMYCIN 97344160729 No Longer Active Margarito Kelley MD Active MUCINEX MAXIMUM STRENGTH [id number]-XFW 1 po qd MUCINEX MAXIMUM STRENGTH [id number] GUAIFENESIN ND85F-LGR Inactive PREDNISONE 20 MG TAB 1 po bid 2 days, then daily for 2 days 12/27 PREDNISONE 20 MG TAB 295809 PREDNISONE Inactive PREDNISONE 20 MG TAB 1 tablet twice daily for 2 days, then 1 tablet once daily for 2 days PREDNISONE 20 MG TAB 531456 PREDNISONE Inactive HYDROCODONE-ACETAMINOPHEN 5-325 MG TABS 1-2 q 4-6 hrs prn pain 20 tabs 07/04 HYDROCODONE-ACETAMINOPHEN 5-325 MG TABS 848900 HYDROCODONE- ACETAMINOPHEN Inactive MELOXICAM 15 MG TABS 1 po q day for pain with food MELOXICAM 15 MG TABS 530837 MELOXICAM Inactive FLONASE 50 MCG/ACT SUSP 1 spray each nostril am and hs FLONASE 50 MCG/ACT SUSP FLUTICASONE PROPIONATE Inactive GUAIFENESIN-CODEINE 100-10 MG/5ML SYRP 5ml every 4 to 6 hours as needed for cough GUAIFENESIN-CODEINE 100-10 MG/5ML SYRP 112473 GUAIFENESIN-CODEINE Inactive ZITHROMAX Z-MARY 250 MG TABS 2 today and then 1 daily for 4 days ZITHROMAX Z-MARY 250 MG TABS 5352025 AZITHROMYCIN Inactive CEFTIN 500 MG TAB 1 tablet by mouth twice daily for ten days. CEFTIN 500 MG TAB 664281 CEFUROXIME AXETIL Inactive PROAIR HFA 108 (90 BASE) MCG/ACT AERS 2 puffs every 4 hours as needed 2014 PROAIR HFA 108 (90 BASE) MCG/ACT AERS ALBUTEROL SULFATE Inactive E-Z SPACER ERIBERTO use with proair inhalier every 4 times as need. E-Z SPACER ERIBERTO SPACER/AERO-HOLDING CHAMBERS Inactive IRVING-D ALLERGY & CONGESTION [id number] 1 po bid IRVING-D ALLERGY & CONGESTION BX90P-XCU FEXOFENADINE-PSEUDOEPHEDRINE XR12H- TAB Inactive PREDNISONE 20 MG TAB 1 tablet twice daily for 2 days, then 1 tablet once daily for 2 days PREDNISONE 20 MG TAB 853875 PREDNISONE Inactive GUAIFENESIN 600 MG FY54G-TWW 1 twice a day as needed for congestion GUAIFENESIN 600 MG [id number]-NGM GUAIFENESIN Inactive FLUTICASONE PROPIONATE 50 MCG/ACT SUSP 1 to 2 sprays each nostril daily 03/20 FLUTICASONE PROPIONATE 50 MCG/ACT SUSP 3709674 FLUTICASONE PROPIONATE Inactive MUCINEX D 60-600 MG [id number] 1 po BID PRN Congestion MUCINEX D 60-600 MG HK34L-PHB PSEUDOEPHEDRINE-GUAIFENESIN Inactive AZITHROMYCIN 250 MG TABS 2 po qd x 1 day, then 1 po qd x 4 days AZITHROMYCIN 250 MG TABS 1678948 AZITHROMYCIN Inactive AZITHROMYCIN 250 MG TABS 2 po qd x 1 day, then 1 po qd x 4 days AZITHROMYCIN 250 MG TABS 3129791 AZITHROMYCIN Inactive MEDROL (MARY) 4 MG TABS 6 pills on day 1, 5 pills on day 2, 4 pills on day 3, 4 pills on day 4, 2 pills on day 5, 1 pill on day 6 MEDROL (MARY) 4 MG TABS 826699 METHYLPREDNISOLONE Inactive CEPHALEXIN 500 MG CAPS 1 tablet by mouth three times daily for ten days 06/25 CEPHALEXIN 500 MG CAPS 264792 CEPHALEXIN Inactive PREDNISONE 20 MG TAB 2 tabs daily for 3 days, 1 tab daily for 3 days, 1/2 tab daily for 2 days PREDNISONE 20 MG TAB 320103 PREDNISONE Inactive CEFDINIR 300 MG CAPS 1 cap by mouth twice a day CEFDINIR 300 MG CAPS 066014 CEFDINIR Inactive PREDNISONE 20 MG TAB 2 tabs daily for 3 days, 1 tab daily for 3 days, 1/2 tab daily for 2 days PREDNISONE 20 MG TAB 232293 PREDNISONE Inactive PREDNISONE 20 MG TAB 2 tabs daily for 3 days, 1 tab daily for 3 days, 1/2 tab daily for 2 days PREDNISONE 20 MG TAB 379817 PREDNISONE Inactive CEFDINIR 300 MG CAPS by mouth twice a day CEFDINIR 300 MG CAPS 20021026 CEFDINIR Inactive PREDNISONE 20 MG TAB 2 tabs daily for 3 days, 1 tab daily for 3 days, 1/2 tab daily for 2 days PREDNISONE 20 MG TAB 491889 PREDNISONE Inactive CEFDINIR 300 MG CAPS 1 po BID x 10 days CEFDINIR 300 MG CAPS 20021026 CEFDINIR Inactive Immunizations Vaccine Administration Date Value Standard Description Human Papillomavirus vaccine (Gardasil) #2, (HPV #2) Gardasil [ CVX62] human papilloma virus vaccine, quadrivalent Seasonal influenza vaccine, injectable, containing preservative, for > 3 years old (Afluria, FluLaval, Fluzone, Fluvirin, Fluarix, Agriflu(>=18 yo)) Fluzone (>3 yrs.) [[id number]] Influenza, seasonal, injectable Human Papillomavirus Vaccine (Gardasil) #1 Given (HPV #1) Gardasil [CVX62] human papilloma virus vaccine, quadrivalent hepatitis A immunization #2 Havrix-Pedi hepatitis A vaccine, unspecified formulation Boostrix (Tetanus toxoid, reduced diphtheria toxoid and acellular pertussis vaccine, adsorbed), booster Boostrix [BGR506] tetanus toxoid, reduced diphtheria toxoid, and acellular [...] Negative;Positive Encounters Code Encounter Date Provider Facility CPT-97861 Level 3 Est. Patient 10:49:47 GROUNDS WORKER Griselda Horvath [facility] CPT-27017 Level 3 Est. Patient 08:43:59 GROUNDS WORKER Jessika Nunes [facility] CPT-25342 Level 3 Est. Patient 09:05:19 GROUNDS WORKER Griselda Horvath [facility] CPT-34129 Level 3 Est. Patient 15:45:46 CDT Griselda Horvath [facility] CPT-14334 Level 3 Est. Patient 14:15:52 CDT Daniele Mcfadden DO [facility] CPT-81062 Level 3 Est. Patient 13:57:19 GROUNDS WORKER Margarito Kelley MD [facility] CPT-35900 Level 3 Est. Patient 09:16:05 GROUNDS WORKER Margarito Kelley MD [facility] CPT-80649 Level 3 Est. Patient 15:37:06 GROUNDS WORKER Dnaiele Mcfadden [facility] CPT-49863 Level 3 Est. Patient 11:56:34 GROUNDS WORKER Renée Adames ALEX [facility] CPT-54676 Level 3 Est. Patient 12:19:42 CDT Daniele Mcfadden [facility] CPT-45086 Level 3 Est. Patient 11:08:45 CDT Annita Mejia MD PhD [facility] CPT-23496 Level 3 Est. Patient 12:00:17 CDT Kendell Coronado MD [facility] CPT-15636 Level 3 Est. Patient 12:27:25 CDT Daniele Mcfadden [facility] CPT-22719 Level 3 Est. Patient 18:45:11 GROUNDS WORKER Daniele Mcfadden [facility] CPT-57942 Level 3 Est. Patient 10:12:24 GROUNDS WORKER Daniele Mcfadden [facility] CPT-27861 Level 3 Est. Patient 14:35:11 GROUNDS WORKER Daniele Mcfadden [facility] CPT-83087 Level 3 Est. Patient 14:11:04 CDT Daniele Mcfadden [facility] CPT-65102 Level 3 Est. Patient 10:52:13 CDT Alexander LOPEZ [facility] CPT-68892 Level 3 Est. Patient 11:01:08 GROUNDS WORKER Daniele Mcfadden [facility] CPT-70616 Level 3 Est. Patient 10:55:35 CDT Daniele Mcfadden [facility] CPT-53901 Level 3 Est. Patient 14:03:08 CDT Daniele Mcfadden [facility] CPT-01983 Level 3 Est. Patient 11:26:19 CDT Margarito Kelley MD [facility] CPT-78436 Level 2 Est. Patient 15:32:04 GROUNDS WORKER Daniele Gaetano Mcfadden [facility] CPT-53096 Level 3 Est. Patient 16:01:26 GROUNDS WORKER Daniele Mcfadden [facility] CPT-80930 Level 3 Est. Patient 06:37:10 GROUNDS WORKER Daniele Mcfadden [facility] Procedures Code Procedure Name Date Entry Date Standard Description CPT-21463 Throat Culture - LAB USE ONLY 12:15:45 GROUNDS WORKER CPT-45701 Shani Flu A/B - LAB USE ONLY 12:15:45 GROUNDS WORKER CPT-17923 Rapid Strep (Reflex throat) - LAB USE ONLY 12:15:45 GROUNDS WORKER CPT-77617 Rapid Strep (Grp A) - LAB USE ONLY 13:06:06 CDT CPT-74473 Abd compl w upright 12:34:39 CDT CPT-60703 Immunization Single Admin 11:38:41 CDT CPT-67797 Fluzone Quadrivalent Intramuscular Suspension 0.5 ML 11: 38:41 CDT CPT-OV Office Visit 14:45:12 GROUNDS WORKER CPT-49688 [employer] all organs plus proximal aorta and distal IVC 2012 12:13:02 GROUNDS WORKER CPT-45977 Abd compl w upright 15:12:58 GROUNDS WORKER CPT-39324 Venipuncture Draw Fee 14:38:32 GROUNDS WORKER CPT-19133 Administration single or combination vaccine inc oral 17 :10:04 CDT CPT-18689 Gardasil 17:10:04 CDT CPT-57156 Venipuncture Draw Fee 16:07:54 GROUNDS WORKER CPT-96359 Administration 2+ single or combination vaccines inc oral 17:22:02 CDT CPT-25958 Administration single or combination vaccine inc oral 17 :22:02 CDT CPT-92978 Influenza split virus > age 3 17:22:02 CDT CPT-87679 Gardasil 17:22:02 CDT CPT-63197 Administration 2+ single or combination vaccines inc oral 14:38:31 CDT CPT-09955 Administration single or combination vaccine inc oral 14 :38:31 CDT CPT-84591 Meningococcal Conjugate Vacine (Menactra) 14:38:31 CDT CPT-68920 Gardasil 14:38:31 CDT
--- OUTSIDE RECORDS SUMMARY | 2018-02-15 07:12 | XMS REPORT | Clinical Summary ---
Author Author Admin, Ludmila Organization [employer] Address Unknown Phone Unavailable Allergies, Adverse Reactions, [...] unspecified site Sinusitis 473.9 Active Griselda Horvath [employer] Unspecified sinusitis (chronic) Eustachian tube dysfunction, right 381.81 Active Margarito Kelley MD Dysfunction of Eustachian tube Pharyngitis-Acute 462 Active Daniele Mcfadden DO Acute pharyngitis URI 465.9 Active Griselda Horvath [employer] Acute upper respiratory infections of unspecified site Allergic rhinitis 477.9 Active Jessika Nunes [employer] Allergic rhinitis, cause unspecified Acute rhinosinusitis 461.9 Active Jessika Nunes [employer] Acute sinusitis, unspecified Fever 780.60 Active Griselda Horvath [employer] Fever, unspecified ALLERGIC RHINITIS ICD-477.9 Inactive Errol [...] Errol Pack MD Abdominal pain ICD-789.00 Inactive Errlo Pack MD U R I ICD-465.9 Inactive [...] for 2 days start tomorrow 07/31/16 PREDNISONE [id number] Active Jillina Frazell [employer] Active AZITHROMYCIN 250 MG TABS 2 po qd x 1 day, then 1 po qd x 4 days AZITHROMYCIN 51069062641 Active Jillina Frazell [employer] Active MUCINEX D 60-600 MG [id number] 1 po BID PRN Congestion PSEUDOEPHEDRINE-GUAIFENESIN 43216154610 No Longer Active Jessika Nunes [employer] Active CEFDINIR 300 MG CAPS 1 po BID x 10 days CEFDINIR 61402475359 No Longer Active Jillina Frazell [employer] Active PREDNISONE 20 MG TAB 2 tabs daily for 3 days, 1 tab daily for 3 days, 1/2 tab daily for 2 days PREDNISONE 94906545930 No Longer Active Jillina Frazell [employer] Active FLUTICASONE PROPIONATE 50 MCG/ACT SUSP 1 to 2 sprays each nostril daily 03/20 FLUTICASONE PROPIONATE 89248096710 No Longer Active Jillina Frazell [employer] Active GUAIFENESIN 600 MG [id number] 1 twice a day as needed for congestion GUAIFENESIN 81364155187 No Longer Active Jillina Frazell [employer] Active CEFDINIR 300 MG CAPS by mouth twice a day CEFDINIR 51343899238 No Longer Active Jillina Frazell [employer] Active PREDNISONE 20 MG TAB 1 tablet twice daily for 2 days, then 1 tablet once daily for 2 days PREDNISONE 97855028163 No Longer Active Jillina Frazell [employer] Active PREDNISONE 20 MG TAB 2 tabs daily for 3 days, 1 tab daily for 3 days, 1/2 tab daily for 2 days PREDNISONE 84952763030 No Longer Active Margarito Kelley MD Active IRVING-D ALLERGY & CONGESTION [id number] 1 po bid FEXOFENADINE-PSEUDOEPHEDRINE [id number] 14466732117 No Longer Active Margarito Kelley MD Active PREDNISONE 20 MG TAB 2 tabs daily for 3 days, 1 tab daily for 3 days, 1/2 tab daily for 2 days PREDNISONE 36332239556 No Longer Active Jillina Frazell [employer] Active CEFDINIR 300 MG CAPS 1 cap by mouth twice a day CEFDINIR 28730180538 No Longer Active Jillina Frazell [employer] Active E-Z SPACER ERIBERTO use with proair inhalier every 4 times as need. SPACER/AERO-HOLDING CHAMBERS 31738286801 No Longer Active Jillina Frazell [employer] Active PROAIR HFA 108 (90 BASE) MCG/ACT AERS 2 puffs every 4 hours as needed 2014 ALBUTEROL SULFATE 24994762893 No Longer Active Jillina Frazell [employer] Active CEFTIN 500 MG TAB 1 tablet by mouth twice daily for ten days. CEFUROXIME AXETIL 35669381539 No Longer Active Ezekielllina Frazell [employer] Active PREDNISONE 20 MG TAB 2 tabs daily for 3 days, 1 tab daily for 3 days, 1/2 tab daily for 2 days PREDNISONE 02323552594 No Longer Active Margarito Kelley MD Active CEPHALEXIN 500 MG CAPS 1 tablet by mouth three times daily for ten days 06/25 CEPHALEXIN 87099835146 No Longer Active Renée Adames APRN Active MEDROL (MARY) 4 MG TABS 6 pills on day 1, 5 pills on day 2, 4 pills on day 3, 4 pills on day 4, 2 pills on day 5, 1 pill on day 6 METHYLPREDNISOLONE 38297346172 No Longer Active Annita Mejia MD PhD Active ZITHROMAX Z-MARY 250 MG TABS 2 today and then 1 daily for 4 days AZITHROMYCIN 58311248239 No Longer Active Annita Mejia MD PhD Active GUAIFENESIN-CODEINE 100-10 MG/5ML SYRP 5ml every 4 to 6 hours as needed for cough GUAIFENESIN-CODEINE 14727037436 No Longer Active Annita Mejia MD PhD Active FLONASE 50 MCG/ACT SUSP 1 spray each nostril am and hs FLUTICASONE PROPIONATE 06690292459 No Longer Active Kendell Coronado MD Active MELOXICAM 15 MG TABS 1 po q day for pain with food MELOXICAM 47728104545 No Longer Active Kendell Coronado MD Active HYDROCODONE-ACETAMINOPHEN 5-325 MG TABS 1-2 q 4-6 hrs prn pain 20 tabs 07/04 HYDROCODONE-ACETAMINOPHEN 36317152363 No Longer Active Daniele Mcfadden DO Active PREDNISONE 20 MG TAB 1 tablet twice daily for 2 days, then 1 tablet once daily for 2 days PREDNISONE 85920618907 No Longer Active Daniele Mcfadden DO Active PREDNISONE 20 MG TAB 1 po bid 2 days, then daily for 2 days 12/27 PREDNISONE 31937657041 No Longer Active Alexander LOPEZ Active AZITHROMYCIN 250 MG TABS 2 po qd x 1 day, then 1 po qd x 4 days AZITHROMYCIN 77207240315 No Longer Active Daniele Mcfadden DO Active MUCINEX MAXIMUM STRENGTH [id number] 1 po qd GUAIFENESIN XR12H- TAB 54775196996 No Longer Active Daniele Mcfadden DO Active AZITHROMYCIN 250 MG TABS 2 po qd x 1 day, then 1 po qd x 4 days AZITHROMYCIN 28363649310 No Longer Active Margarito Kelley MD Active MUCINEX MAXIMUM STRENGTH [id number] 1 po qd MUCINEX MAXIMUM STRENGTH [id number]-XFS GUAIFENESIN CH88S-JEC Inactive PREDNISONE 20 MG TAB 1 po bid 2 days, then daily for 2 days 12/27 PREDNISONE 20 MG TAB 836859 PREDNISONE Inactive PREDNISONE 20 MG TAB 1 tablet twice daily for 2 days, then 1 tablet once daily for 2 days PREDNISONE 20 MG TAB 256986 PREDNISONE Inactive HYDROCODONE-ACETAMINOPHEN 5-325 MG TABS 1-2 q 4-6 hrs prn pain 20 tabs 07/04 HYDROCODONE-ACETAMINOPHEN 5-325 MG TABS 817286 HYDROCODONE- ACETAMINOPHEN Inactive MELOXICAM 15 MG TABS 1 po q day for pain with food MELOXICAM 15 MG TABS 266810 MELOXICAM Inactive FLONASE 50 MCG/ACT SUSP 1 spray each nostril am and hs FLONASE 50 MCG/ACT SUSP FLUTICASONE PROPIONATE Inactive GUAIFENESIN-CODEINE 100-10 MG/5ML SYRP 5ml every 4 to 6 hours as needed for cough GUAIFENESIN-CODEINE 100-10 MG/5ML SYRP 654701 GUAIFENESIN-CODEINE Inactive ZITHROMAX Z-MARY 250 MG TABS 2 today and then 1 daily for 4 days ZITHROMAX Z-MARY 250 MG TABS 7613893 AZITHROMYCIN Inactive CEFTIN 500 MG TAB 1 tablet by mouth twice daily for ten days. CEFTIN 500 MG TAB 787458 CEFUROXIME AXETIL Inactive PROAIR HFA 108 (90 BASE) MCG/ACT AERS 2 puffs every 4 hours as needed 2014 PROAIR HFA 108 (90 BASE) MCG/ACT AERS ALBUTEROL SULFATE Inactive E-Z SPACER ERIBERTO use with proair inhalier every 4 times as need. E-Z SPACER ERIBERTO SPACER/AERO-HOLDING CHAMBERS Inactive IRVING-D ALLERGY & CONGESTION [id number] 1 po bid IRVING-D ALLERGY & CONGESTION [id number] FEXOFENADINE-PSEUDOEPHEDRINE XR12H- TAB Inactive PREDNISONE 20 MG TAB 1 tablet twice daily for 2 days, then 1 tablet once daily for 2 days PREDNISONE 20 MG TAB 349753 PREDNISONE Inactive GUAIFENESIN 600 MG [id number] 1 twice a day as needed for congestion GUAIFENESIN 600 MG [id number] GUAIFENESIN Inactive FLUTICASONE PROPIONATE 50 MCG/ACT SUSP 1 to 2 sprays each nostril daily 03/20 FLUTICASONE PROPIONATE 50 MCG/ACT SUSP 0172464 FLUTICASONE PROPIONATE Inactive MUCINEX D 60-600 MG [id number] 1 po BID PRN Congestion MUCINEX D 60-600 MG [id number] PSEUDOEPHEDRINE-GUAIFENESIN Inactive AZITHROMYCIN 250 MG TABS 2 po qd x 1 day, then 1 po qd x 4 days AZITHROMYCIN 250 MG TABS 4716503 AZITHROMYCIN Inactive AZITHROMYCIN 250 MG TABS 2 po qd x 1 day, then 1 po qd x 4 days AZITHROMYCIN 250 MG TABS 2462875 AZITHROMYCIN Inactive MEDROL (MARY) 4 MG TABS 6 pills on day 1, 5 pills on day 2, 4 pills on day 3, 4 pills on day 4, 2 pills on day 5, 1 pill on day 6 MEDROL (MARY) 4 MG TABS 514852 METHYLPREDNISOLONE Inactive CEPHALEXIN 500 MG CAPS 1 tablet by mouth three times daily for ten days 06/25 CEPHALEXIN 500 MG CAPS 970678 CEPHALEXIN Inactive PREDNISONE 20 MG TAB 2 tabs daily for 3 days, 1 tab daily for 3 days, 1/2 tab daily for 2 days PREDNISONE 20 MG TAB 909230 PREDNISONE Inactive CEFDINIR 300 MG CAPS 1 cap by mouth twice a day CEFDINIR 300 MG CAPS 034983 CEFDINIR Inactive PREDNISONE 20 MG TAB 2 tabs daily for 3 days, 1 tab daily for 3 days, 1/2 tab daily for 2 days PREDNISONE 20 MG TAB 283034 PREDNISONE Inactive PREDNISONE 20 MG TAB 2 tabs daily for 3 days, 1 tab daily for 3 days, 1/2 tab daily for 2 days PREDNISONE 20 MG TAB 917859 PREDNISONE Inactive CEFDINIR 300 MG CAPS by mouth twice a day CEFDINIR 300 MG CAPS 20021026 CEFDINIR Inactive PREDNISONE 20 MG TAB 2 tabs daily for 3 days, 1 tab daily for 3 days, 1/2 tab daily for 2 days PREDNISONE 20 MG TAB 972363 PREDNISONE Inactive CEFDINIR 300 MG CAPS 1 po BID x 10 days CEFDINIR 300 MG CAPS 20021026 CEFDINIR Inactive Immunizations Vaccine Administration Date Value Standard Description Human Papillomavirus vaccine (Gardasil) #2, (HPV #2) Gardasil [ CVX62] human papilloma virus vaccine, quadrivalent Seasonal influenza vaccine, injectable, containing preservative, for > 3 years old (Afluria, FluLaval, Fluzone, Fluvirin, Fluarix, Agriflu(>=18 yo)) Fluzone (>3 yrs.) [MGW028] Influenza, seasonal, injectable Human Papillomavirus Vaccine (Gardasil) #1 Given (HPV #1) Gardasil [CVX62] human papilloma virus vaccine, quadrivalent hepatitis A immunization #2 Havrix-Pedi hepatitis A vaccine, unspecified formulation Boostrix (Tetanus toxoid, reduced diphtheria toxoid and acellular pertussis vaccine, adsorbed), booster Boostrix [ELY117] tetanus toxoid, reduced diphtheria toxoid, and acellular [...] Negative;Positive Encounters Code Encounter Date Provider Facility CPT-42150 Level 3 Est. Patient 10:49:47 MATERIALS TECH Griselda Horvath [facility] CPT-53683 Level 3 Est. Patient 08:43:59 MATERIALS TECH Jessika Nunes [facility] CPT-08794 Level 3 Est. Patient 09:05:19 MATERIALS TECH Griselda Horvath [facility] CPT-46570 Level 3 Est. Patient 15:45:46 CDT Griselda Horvath [facility] CPT-64688 Level 3 Est. Patient 14:15:52 CDT Daniele Mcfadden DO [facility] CPT-78860 Level 3 Est. Patient 13:57:19 MATERIALS TECH Margarito Kelley MD [facility] CPT-34193 Level 3 Est. Patient 09:16:05 MATERIALS TECH Margarito Kelley MD [facility] CPT-95608 Level 3 Est. Patient 15:37:06 MATERIALS TECH Daniele Mcfadden [facility] CPT-73048 Level 3 Est. Patient 11:56:34 MATERIALS TECH Renée Adames ALEX [facility] CPT-07971 Level 3 Est. Patient 12:19:42 CDT Daniele Mcfadden [facility] CPT-36657 Level 3 Est. Patient 11:08:45 CDT Annita Mejia MD PhD [facility] CPT-61210 Level 3 Est. Patient 12:00:17 CDT Kendell Coronado MD [facility] CPT-91564 Level 3 Est. Patient 12:27:25 CDT Daniele Mcfadden [facility] CPT-02149 Level 3 Est. Patient 18:45:11 MATERIALS TECH Daniele Mcfadden [facility] CPT-46588 Level 3 Est. Patient 10:12:24 MATERIALS TECH Daniele Mcfadden [facility] CPT-01016 Level 3 Est. Patient 14:35:11 MATERIALS TECH Daniele Mcfadden [facility] CPT-44136 Level 3 Est. Patient 14:11:04 CDT Daniele Mcfadden [facility] CPT-39686 Level 3 Est. Patient 10:52:13 CDT Alexander LOPEZ [facility] CPT-08478 Level 3 Est. Patient 11:01:08 MATERIALS TECH Daniele Mcfadden [facility] CPT-79755 Level 3 Est. Patient 10:55:35 CDT Daniele Mcfadden [facility] CPT-16164 Level 3 Est. Patient 14:03:08 CDT Daniele Mcfadden [facility] CPT-32934 Level 3 Est. Patient 11:26:19 CDT Margarito Kelley MD [facility] CPT-17923 Level 2 Est. Patient 15:32:04 MATERIALS TECH Daniele Gaetano Mcfadden [facility] CPT-56239 Level 3 Est. Patient 16:01:26 MATERIALS TECH Daniele Mcfadden [facility] CPT-00092 Level 3 Est. Patient 06:37:10 MATERIALS TECH Daniele Mcfadden [facility] Procedures Code Procedure Name Date Entry Date Standard Description CPT-15128 Throat Culture - LAB USE ONLY 12:15:45 MATERIALS TECH CPT-63512 Shani Flu A/B - LAB USE ONLY 12:15:45 MATERIALS TECH CPT-44189 Rapid Strep (Reflex throat) - LAB USE ONLY 12:15:45 MATERIALS TECH CPT-13835 Rapid Strep (Grp A) - LAB USE ONLY 13:06:06 CDT CPT-71134 Abd compl w upright 12:34:39 CDT CPT-04260 Immunization Single Admin 11:38:41 CDT CPT-14516 Fluzone Quadrivalent Intramuscular Suspension 0.5 ML 11: 38:41 CDT CPT-OV Office Visit 14:45:12 MATERIALS TECH CPT-29851 [employer] [facility] [employer] all organs plus proximal aorta and distal IVC 2012 12:13:02 MATERIALS TECH CPT-38762 Abd compl w upright 15:12:58 MATERIALS TECH CPT-58466 Venipuncture Draw Fee 14:38:32 MATERIALS TECH CPT-66437 Administration single or combination vaccine inc oral 17 :10:04 CDT CPT-95148 Gardasil 17:10:04 CDT CPT-06747 Venipuncture Draw Fee 16:07:54 MATERIALS TECH CPT-36718 Administration 2+ single or combination vaccines inc oral 17:22:02 CDT CPT-42678 Administration single or combination vaccine inc oral 17 :22:02 CDT CPT-78756 Influenza split virus > age 3 17:22:02 CDT CPT-85547 Gardasil 17:22:02 CDT CPT-91911 Administration 2+ single or combination vaccines inc oral 14:38:31 CDT CPT-88733 Administration single or combination vaccine inc oral 14 :38:31 CDT CPT-93193 Meningococcal Conjugate Vacine (Menactra) 14:38:31 CDT CPT-42076 Gardasil 14:38:31 CDT
--- OUTSIDE RECORDS SUMMARY | 2018-02-15 07:13 | XMS REPORT | Clinical Summary ---
Author Author Admin, OLE[facility] Organization [facility] Address Unknown Phone Unavailable Allergies, Adverse Reactions, [...] COSTOCHONDRITIS, ACUTE ICD-733.6 Inactive Errol Pack MD BRONCHITIS, ACUTE ICD-466.0 Inactive Errol Pack MD ALLERGIC RHINITIS ICD-477.9 Inactive Errol Pack MD KNEE PAIN, RIGHT ICD-719.46 Inactive Errol Pack MD ATHLETIC PHYSICAL, NORMAL ICD-V70.3 Inactive Errol Pack MD MUSCLE RUPTURE, NONTRAUMATIC ICD-728.83 Inactive Errol Pack MD Abdominal pain ICD-789.00 Inactive Errol Pack MD U R I ICD-465.9 Inactive Daniele Mcfadden DO PLANTAR WART ICD-078.12 Inactive Katie Gipson LPN Biliary dyskinesia ICD-575.8 Inactive Katie Gipson LPN Abdominal pain ICD-789.00 Inactive Kendell Coronado MD Ankle sprain ICD-845.00 Inactive Kendell Coronado MD Fatigue ICD-780.79 Inactive Margarito Kelley MD 2014 Vaccination against influenza ICD-V04.81 Inactive Margarito Kelley MD Flank pain, right ICD-789.09 Inactive Margarito Kelley MD Pharyngitis, acute ICD-462 Inactive Margarito Kelley MD Knee pain, left ICD-719.46 Inactive Margarito Kelley MD Upper respiratory infection, viral ICD-465.9 Inactive Katie Gipson GLAZE CARRIER Sinusitis ICD-473.9 Inactive Katie Gipson GLAZE CARRIER 2017 Eustachian tube dysfunction, right ICD-381.81 Inactive Katie Gipson GLAZE CARRIER Pharyngitis-Acute ICD-462 Inactive Katie Gipson GLAZE CARRIER URI ICD-465.9 Inactive Katie Gipson GLAZE CARRIER Allergic rhinitis ICD-477.9 Inactive Katie Gipson GLAZE CARRIER Acute rhinosinusitis ICD-461.9 Inactive Katie Gipson GLAZE CARRIER Fever ICD-780.60 Inactive Katie Gipson GLAZE CARRIER Immunization due ICD-V15.83 Inactive Katie Gipson GLAZE CARRIER Pharyngitis ICD-462 Inactive Annita Mejia MD PhD Sinusitis, acute ICD-461.9 Inactive Margarito Kelley MD Medication List Medication Instructions Start Date Stop Date Generic Name NDC Status Provider Patient Instruction PREDNISONE 10 MG ORAL TABLET 2 TABS BY MOUTH TODAY, THEN 1 TAB BY MOUTH DAYS 2 -5 PREDNISONE 53739198759 Active Daniele Mcfadden DO Active PREDNISONE 20 MG ORAL TABLET two tabs by mouth today, then one tab by mouth days two and three PREDNISONE 24453924537 No Longer Active Whitley Hernandez Active AZITHROMYCIN 250 MG ORAL TABLET 2 po qd x 1 day, then 1 po qd x 4 days 07/24 AZITHROMYCIN 21666712349 No Longer Active Daniele Mcfadden DO Active IRVING-D ALLERGY & CONGESTION 60-120 MG ORAL TABLET EXTENDED RELEASE 12 HOUR 1 tablet twice daily as needed for congestion/allergies FEXOFENADINE-PSEUDOEPHEDRINE 17354136451 Active Holly Sharma Active PREDNISONE 20 MG ORAL TABLET 2 tabs daily for 3 days, 1 tab daily for 3 days, 1/2 tab daily for 2 days start tomorrow 07/31/16 PREDNISONE 37514243454 No Longer Active Jillina Alexandru JOHNSON Active AZITHROMYCIN 250 MG ORAL TABLET 2 po qd x 1 day, then 1 po qd x 4 days 08/30 AZITHROMYCIN 53420584913 No Longer Active Jillina Alexandru JOHNSON Active MUCINEX D 60-600 MG ORAL TABLET EXTENDED RELEASE 12 HOUR 1 po BID PRN Congestion PSEUDOEPHEDRINE-GUAIFENESIN 81858730487 No Longer Active Jessika Nunes APRN Active CEFDINIR 300 MG ORAL CAPSULE 1 po BID x 10 days CEFDINIR 49466740609 No Longer Active Jillina Alexandru JOHNSON Active PREDNISONE 20 MG ORAL TABLET 2 tabs daily for 3 days, 1 tab daily for 3 days, 1/2 tab daily for 2 days PREDNISONE 17032676112 No Longer Active Jillina Frazell BRAID MAKER Active FLUTICASONE PROPIONATE 50 MCG/ACT NASAL SUSPENSION 1 to 2 sprays each nostril daily FLUTICASONE PROPIONATE 77736389244 No Longer Active Jillina Frazell BRAID MAKER Active GUAIFENESIN ER 600 MG ORAL TABLET EXTENDED RELEASE 12 HOUR 1 twice a day as needed for congestion GUAIFENESIN 63205917179 No Longer Active Ezekielllina Jiml BRAID MAKER Active CEFDINIR 300 MG ORAL CAPSULE by mouth twice a day CEFDINIR 70180904922 No Longer Active Jillina Frazell BRAID MAKER Active PREDNISONE 20 MG ORAL TABLET 1 tablet twice daily for 2 days, then 1 tablet once daily for 2 days PREDNISONE 42384552972 No Longer Active Jillina Framarkl BRAID MAKER Active PREDNISONE 20 MG ORAL TABLET 2 tabs daily for 3 days, 1 tab daily for 3 days, 1/2 tab daily for 2 days PREDNISONE 19929418568 No Longer Active Margarito Kelley MD Active IRVING-D ALLERGY & CONGESTION TABLET EXTENDED RELEASE 12 HOUR 1 po bid 05/26 FEXOFENADINE-PSEUDOEPHEDRINE [id number] 89596634593 No Longer Active Margarito Kelley MD Active PREDNISONE 20 MG ORAL TABLET 2 tabs daily for 3 days, 1 tab daily for 3 days, 1/2 tab daily for 2 days PREDNISONE 63323390847 No Longer Active Ezekielllina Alexandru JOHNSON Active CEFDINIR 300 MG ORAL CAPSULE 1 cap by mouth twice a day CEFDINIR 29120113200 No Longer Active Jillina Jiml BRAID MAKER Active E-Z SPACER DEVICE use with proair inhalier every 4 times as need. SPACER/AERO-HOLDING CHAMBERS 47089400586 No Longer Active Jillina Jiml BRAID MAKER Active PROAIR HFA 108 (90 Base) MCG/ACT INHALATION AEROSOL SOLUTION 2 puffs every 4 hours as needed ALBUTEROL SULFATE 24637575616 No Longer Active Ezekielllina Alexandru ONTIVEROSN Active CEFTIN 500 MG ORAL TABLET 1 tablet by mouth twice daily for ten days. CEFUROXIME AXETIL 69839875926 No Longer Active Ezekielllsd Horvath APRN Active PREDNISONE 20 MG ORAL TABLET 2 tabs daily for 3 days, 1 tab daily for 3 days, 1/2 tab daily for 2 days PREDNISONE 50195392375 No Longer Active Margarito Kelley MD Active CEPHALEXIN 500 MG ORAL CAPSULE 1 tablet by mouth three times daily for ten days CEPHALEXIN 01482395648 No Longer Active Renée Adames ALEX Active MEDROL 4 MG ORAL TABLET THERAPY PACK 6 pills on day 1, 5 pills on day 2, 4 pills on day 3, 4 pills on day 4, 2 pills on day 5, 1 pill on day 6 METHYLPREDNISOLONE 05067932039 No Longer Active Annita Mejia MD PhD Active ZITHROMAX Z-MARY 250 MG ORAL TABLET 2 today and then 1 daily for 4 days 03/11 AZITHROMYCIN 97549728724 No Longer Active Annita Mejia MD PhD Active GUAIFENESIN-CODEINE 100-10 MG/5ML ORAL SYRUP 5ml every 4 to 6 hours as needed for cough GUAIFENESIN-CODEINE 47995727987 No Longer Active Annita Mejia MD PhD Active FLONASE 50 MCG/ACT NASAL SUSPENSION 1 spray each nostril am and hs FLUTICASONE PROPIONATE 42498337672 No Longer Active Kendell Coronado MD Active MELOXICAM 15 MG ORAL TABLET 1 po q day for pain with food MELOXICAM 21315155135 No Longer Active Kendell Coronado MD Active HYDROCODONE-ACETAMINOPHEN 5-325 MG ORAL TABLET 1-2 q 4-6 hrs prn pain 20 tabs HYDROCODONE-ACETAMINOPHEN 46006537430 No Longer Active Daniele Mcfadden DO Active PREDNISONE 20 MG ORAL TABLET 1 tablet twice daily for 2 days, then 1 tablet once daily for 2 days PREDNISONE 26786732665 No Longer Active Daniele Mcfadden DO Active PREDNISONE 20 MG ORAL TABLET 1 po bid 2 days, then daily for 2 days PREDNISONE 51657869263 No Longer Active Alexander LOPEZ Active AZITHROMYCIN 250 MG ORAL TABLET 2 po qd x 1 day, then 1 po qd x 4 days 08/05 AZITHROMYCIN 52793389199 No Longer Active Daniele Mcfadden DO Active MUCINEX MAXIMUM STRENGTH TABLET EXTENDED RELEASE 12 HOUR 1 po qd GUAIFENESIN [id number] 23926807581 No Longer Active Daniele Mcfadden DO Active AZITHROMYCIN 250 MG ORAL TABLET 2 po qd x 1 day, then 1 po qd x 4 days 11/26 AZITHROMYCIN 73208353535 No Longer Active Margarito Kelley MD Active MUCINEX MAXIMUM STRENGTH TABLET EXTENDED RELEASE 12 HOUR 1 po qd MUCINEX MAXIMUM STRENGTH TABLET EXTENDED RELEASE 12 HOUR GUAIFENESIN [id number] Inactive PREDNISONE 20 MG ORAL TABLET 1 po bid 2 days, then daily for 2 days PREDNISONE 20 MG ORAL TABLET 562421 PREDNISONE Inactive PREDNISONE 20 MG ORAL TABLET 1 tablet twice daily for 2 days, then 1 tablet once daily for 2 days PREDNISONE 20 MG ORAL TABLET 743827 PREDNISONE Inactive HYDROCODONE-ACETAMINOPHEN 5-325 MG ORAL TABLET 1-2 q 4-6 hrs prn pain 20 tabs HYDROCODONE-ACETAMINOPHEN 5-325 MG ORAL TABLET 874015 HYDROCODONE-ACETAMINOPHEN Inactive MELOXICAM 15 MG ORAL TABLET 1 po q day for pain with food MELOXICAM 15 MG ORAL TABLET 238475 MELOXICAM Inactive FLONASE 50 MCG/ACT NASAL SUSPENSION 1 spray each nostril am and hs FLONASE 50 MCG/ACT NASAL SUSPENSION 1633095 FLUTICASONE PROPIONATE Inactive GUAIFENESIN-CODEINE 100-10 MG/5ML ORAL SYRUP 5ml every 4 to 6 hours as needed for cough GUAIFENESIN-CODEINE 100-10 MG/5ML ORAL SYRUP 632713 GUAIFENESIN-CODEINE Inactive ZITHROMAX Z-MARY 250 MG ORAL TABLET 2 today and then 1 daily for 4 days 03/11 ZITHROMAX Z-MARY 250 MG ORAL TABLET 989915 AZITHROMYCIN Inactive CEFTIN 500 MG ORAL TABLET 1 tablet by mouth twice daily for ten days. CEFTIN 500 MG ORAL TABLET 772202 CEFUROXIME AXETIL Inactive PROAIR HFA 108 (90 [...] CONGESTION TABLET EXTENDED RELEASE 12 HOUR FEXOFENADINE-PSEUDOEPHEDRINE [id number] Inactive PREDNISONE 20 MG ORAL TABLET 1 tablet twice daily for 2 days, then 1 tablet once daily for 2 days PREDNISONE 20 MG ORAL TABLET 183398 PREDNISONE Inactive GUAIFENESIN ER 600 MG ORAL TABLET EXTENDED RELEASE 12 HOUR 1 twice a day as needed for congestion GUAIFENESIN ER 600 MG ORAL TABLET EXTENDED RELEASE 12 HOUR GUAIFENESIN Inactive FLUTICASONE PROPIONATE 50 MCG/ACT NASAL SUSPENSION 1 to 2 sprays each nostril daily FLUTICASONE PROPIONATE 50 MCG/ACT NASAL SUSPENSION 3917963 FLUTICASONE PROPIONATE Inactive MUCINEX D 60-600 MG ORAL TABLET EXTENDED RELEASE 12 HOUR 1 po BID PRN Congestion MUCINEX D 60-600 MG ORAL TABLET EXTENDED RELEASE 12 HOUR PSEUDOEPHEDRINE-GUAIFENESIN Inactive PREDNISONE 20 MG ORAL TABLET two tabs by mouth today, then one tab by mouth days two and three PREDNISONE 20 MG ORAL TABLET 816783 PREDNISONE Inactive AZITHROMYCIN 250 MG ORAL TABLET 2 po qd x 1 day, then 1 po qd x 4 days 11/26 AZITHROMYCIN 250 MG ORAL TABLET 892382 AZITHROMYCIN Inactive AZITHROMYCIN 250 MG ORAL TABLET 2 po qd x 1 day, then 1 po qd x 4 days 08/05 AZITHROMYCIN 250 MG ORAL TABLET 570678 AZITHROMYCIN Inactive MEDROL 4 MG ORAL TABLET THERAPY PACK 6 pills on day 1, 5 pills on day 2, 4 pills on day 3, 4 pills on day 4, 2 pills on day 5, 1 pill on day 6 MEDROL 4 MG ORAL TABLET THERAPY PACK 086108 METHYLPREDNISOLONE Inactive CEPHALEXIN 500 MG ORAL CAPSULE 1 tablet by mouth three times daily for ten days CEPHALEXIN 500 MG ORAL CAPSULE 694160 CEPHALEXIN Inactive PREDNISONE 20 MG ORAL TABLET 2 tabs daily for 3 days, 1 tab daily for 3 days, 1/2 tab daily for 2 days PREDNISONE 20 MG ORAL TABLET 116748 PREDNISONE Inactive CEFDINIR 300 MG ORAL CAPSULE 1 cap by mouth twice a day CEFDINIR 300 MG ORAL CAPSULE 320138 CEFDINIR Inactive PREDNISONE 20 MG ORAL TABLET 2 tabs daily for 3 days, 1 tab daily for 3 days, 1/2 tab daily for 2 days PREDNISONE 20 MG ORAL TABLET 083471 PREDNISONE Inactive PREDNISONE 20 MG ORAL TABLET 2 tabs daily for 3 days, 1 tab daily for 3 days, 1/2 tab daily for 2 days PREDNISONE 20 MG ORAL TABLET 391253 PREDNISONE Inactive CEFDINIR 300 MG ORAL CAPSULE by mouth twice a day CEFDINIR 300 MG ORAL CAPSULE 532639 CEFDINIR Inactive PREDNISONE 20 MG ORAL TABLET 2 tabs daily for 3 days, 1 tab daily for 3 days, 1/2 tab daily for 2 days PREDNISONE 20 MG ORAL TABLET 192525 PREDNISONE Inactive CEFDINIR 300 MG ORAL CAPSULE 1 po BID x 10 days CEFDINIR 300 MG ORAL CAPSULE 147447 CEFDINIR Inactive AZITHROMYCIN 250 MG ORAL TABLET 2 po qd x 1 day, then 1 po qd x 4 days 08/30 AZITHROMYCIN 250 MG ORAL TABLET 024162 AZITHROMYCIN Inactive PREDNISONE 20 MG ORAL TABLET 2 tabs daily for 3 days, 1 tab daily for 3 days, 1/2 tab daily for 2 days start tomorrow 07/31/16 PREDNISONE 20 MG ORAL TABLET 683238 PREDNISONE Inactive AZITHROMYCIN 250 MG ORAL TABLET 2 po qd x 1 day, then 1 po qd x 4 days 07/24 AZITHROMYCIN 250 MG ORAL TABLET 268574 AZITHROMYCIN Inactive Immunizations Vaccine Administration Date Value Standard Description Human Papillomavirus vaccine (Gardasil) #2, (HPV #2) Gardasil [ CVX62] human papilloma virus vaccine, quadrivalent Seasonal influenza vaccine, injectable, containing preservative, for > 3 years old (Afluria, FluLaval, Fluzone, Fluvirin, Fluarix, Agriflu(>=18 yo)) Fluzone (>3 yrs.) [[id number]] Influenza, seasonal, injectable Human Papillomavirus Vaccine (Gardasil) #1 Given (HPV #1) Gardasil [CVX62] human papilloma virus vaccine, quadrivalent hepatitis A immunization #2 Havrix-Pedi hepatitis A vaccine, unspecified formulation Boostrix (Tetanus toxoid, reduced diphtheria toxoid and acellular pertussis vaccine, adsorbed), booster Boostrix [FLR037] tetanus toxoid, reduced diphtheria toxoid, and acellular [...] Negative;Positive Encounters Code Encounter Date Provider Facility CPT-24093 Level 3 Est. Patient 16:03:55 CERTIFIED TEACHER ASSISTANT Whitley Quiroz [facility]-28838 Level 3 Est. Patient 17:42:49 CERTIFIED TEACHER ASSISTANT Whitley Quiroz [facility]-66310 Level 3 Est. Patient 10:49:47 CERTIFIED TEACHER ASSISTANT Griselda Horvath [facility]-80867 Level 3 Est. Patient 08:43:59 CERTIFIED TEACHER ASSISTANT Jessika Nunes [facility] CPT-48468 Level 3 Est. Patient 09:05:19 CERTIFIED TEACHER ASSISTANT Griselda Horvath [facility] CPT-66241 Level 3 Est. Patient 15:45:46 CDT Griselda Horvath [facility]-75122 Level 3 Est. Patient 14:15:52 CDT Daniele Mcfadden [facility]-82213 Level 3 Est. Patient 13:57:19 CERTIFIED TEACHER ASSISTANT Margarito Kelley MD [facility]-97991 Level 3 Est. Patient 09:16:05 CERTIFIED TEACHER ASSISTANT Margarito Kelley MD [facility]-55021 Level 3 Est. Patient 15:37:06 CERTIFIED TEACHER ASSISTANT Daniele Mcfadden [facility] CPT-83468 Level 3 Est. Patient 11:56:34 CERTIFIED TEACHER ASSISTANT Renée Adames [facility] CPT-83723 Level 3 Est. Patient 12:19:42 CDT Daniele Mcfadden [facility] CPT-09024 Level 3 Est. Patient 11:08:45 CDT Annita Mejia MD PhD [facility] CPT-54423 Level 3 Est. Patient 12:00:17 CDT Kendell Coronado MD [facility]-86778 Level 3 Est. Patient 12:27:25 CDT Daniele Mcfadden [facility] CPT-57776 Level 3 Est. Patient 18:45:11 CERTIFIED TEACHER ASSISTANT Daniele Mcfadden [facility] CPT-69624 Level 3 Est. Patient 10:12:24 CERTIFIED TEACHER ASSISTANT Daniele Mcfadden [facility] CPT-00845 Level 3 Est. Patient 14:35:11 CERTIFIED TEACHER ASSISTANT Daniele Mcfadden [facility] CPT-99628 Level 3 Est. Patient 14:11:04 CDT Daniele Mcfadden [facility] CPT-87268 Level 3 Est. Patient 10:52:13 CDT Alexander Estrada [facility] CPT-60600 Level 3 Est. Patient 11:01:08 CERTIFIED TEACHER ASSISTANT Daniele Mcfadden [facility] CPT-56092 Level 3 Est. Patient 10:55:35 CDT Daniele Mcfadden [facility] CPT-13006 Level 3 Est. Patient 14:03:08 CDT Daniele Mcfadden [facility] CPT-52429 Level 3 Est. Patient 11:26:19 CDT Margarito Kelley MD [facility] CPT-52479 Level 2 Est. Patient 15:32:04 CERTIFIED TEACHER ASSISTANT Daniele Mcfadden [facility] CPT-48011 Level 3 Est. Patient 16:01:26 CERTIFIED TEACHER ASSISTANT Daniele Gaetano Bogdan [facility] CPT-89516 Level 3 Est. Patient 06:37:10 CERTIFIED TEACHER ASSISTANT Daniele Gaetano Bogdan [facility] Procedures Code Procedure Name Date Entry Date Standard Description CPT-14127 Addl Vx - Ix admin via ID IM or jet injects without counseling by physician 14:37:19 CDT CPT-80431 Meningococcal B, recombinant vaccine 14:37:19 CDT 03/05 CPT-04823 First Vx - Ix admin via ID IM or jet injects without counseling by physician 14:37:19 CDT CPT-10013 Menveo Intramuscular Solution Reconstituted 14:37:19 CDT CPT-66852 Meningococcal Conjugate Vacine (Menactra) 11:20:04 CDT CPT-63026 Throat Culture - LAB USE ONLY 12:15:45 CERTIFIED TEACHER ASSISTANT CPT-26169 Shani Flu A/B - LAB USE ONLY 12:15:45 CERTIFIED TEACHER ASSISTANT CPT-84672 Rapid Strep (Reflex throat) - LAB USE ONLY 12:15:45 CERTIFIED TEACHER ASSISTANT CPT-99601 Rapid Strep (Grp A) - LAB USE ONLY 13:06:06 CDT CPT-14048 Abd compl w upright 12:34:39 CDT CPT-50502 Immunization Single Admin 11:38:41 CDT CPT-52499 Fluzone Quadrivalent Intramuscular Suspension 0.5 ML 11: 38:41 CDT CPT-OV Office Visit 14:45:12 CERTIFIED TEACHER ASSISTANT CPT-28698 Sono abd com inc all organs plus proximal aorta and distal IVC 2012 12:13:02 CERTIFIED TEACHER ASSISTANT CPT-15277 Abd compl w upright 15:12:58 CERTIFIED TEACHER ASSISTANT CPT-68662 Venipuncture Draw Fee 14:38:32 CERTIFIED TEACHER ASSISTANT CPT-90827 Administration single or combination vaccine inc oral 17 :10:04 CDT CPT-78023 Gardasil 17:10:04 CDT CPT-40270 Venipuncture Draw Fee 16:07:54 CERTIFIED TEACHER ASSISTANT CPT-51047 Administration 2+ single or combination vaccines inc oral 17:22:02 CDT CPT-70092 Administration single or combination vaccine inc oral 17 :22:02 CDT CPT-00531 Influenza split virus > age 3 17:22:02 CDT CPT-35211 Gardasil 17:22:02 CDT CPT-60639 Administration 2+ single or combination vaccines inc oral 14:38:31 CDT CPT-56161 Administration single or combination vaccine inc oral 14 :38:31 CDT CPT-37142 Meningococcal Conjugate Vacine (Menactra) 14:38:31 CDT CPT-15929 Gardasil 14:38:31 CDT
--- OUTSIDE RECORDS SUMMARY | 2018-02-15 07:14 | XMS REPORT | Clinical Summary ---
Author Author Admin, OLEG Organization [facility] Address Unknown Phone Unavailable Allergies, Adverse Reactions, [...] Acute pharyngitis Knee pain, left 719.46 Resolved Margartio Kelley MD Pain in joint involving lower leg Upper respiratory infection, viral 465.9 Active Margarito Kelley MD Acute upper respiratory infections of unspecified site Sinusitis 473.9 Active Griselda Horvath RECRUITING COORDINATOR Unspecified sinusitis (chronic) Eustachian tube dysfunction, right 381.81 Active Margarito Kelley MD Dysfunction of Eustachian tube Pharyngitis-Acute 462 Active Daniele Mcfadden DO Acute pharyngitis URI 465.9 Active Griselda Horvath RECRUITING COORDINATOR Acute upper respiratory infections of unspecified site [...] 1 po BID x 10 days CEFDINIR 19543642374 Active Jillina Frazell RECRUITING COORDINATOR Active MUCINEX D 60-600 MG [id number] 1 po BID PRN Congestion PSEUDOEPHEDRINE-GUAIFENESIN 72367920196 Active Jillina Frazell RECRUITING COORDINATOR Active PREDNISONE 20 MG TAB 2 tabs daily for 3 days, 1 tab daily for 3 days, 1/2 tab daily for 2 days PREDNISONE 29686778834 Active Jillina Frazell RECRUITING COORDINATOR Active FLUTICASONE PROPIONATE 50 MCG/ACT SUSP 1 to 2 sprays each nostril daily 03/20 FLUTICASONE PROPIONATE 18529832255 No Longer Active Jillina Frazell RECRUITING COORDINATOR Active GUAIFENESIN 600 MG [id number] 1 twice a day as needed for congestion GUAIFENESIN 20332433418 No Longer Active Jillina Frazell RECRUITING COORDINATOR Active CEFDINIR 300 MG CAPS by mouth twice a day CEFDINIR 74235789950 No Longer Active Jillina Frazell RECRUITING COORDINATOR Active PREDNISONE 20 MG TAB 1 tablet twice daily for 2 days, then 1 tablet once daily for 2 days PREDNISONE 31076145113 No Longer Active Jillina Frazell RECRUITING COORDINATOR Active PREDNISONE 20 MG TAB 2 tabs daily for 3 days, 1 tab daily for 3 days, 1/2 tab daily for 2 days PREDNISONE 51299767875 No Longer Active Margarito Kelley MD Active IRVING-D ALLERGY & CONGESTION [id number] 1 po bid FEXOFENADINE-PSEUDOEPHEDRINE [id number] 95988512438 No Longer Active Margarito Kelley MD Active PREDNISONE 20 MG TAB 2 tabs daily for 3 days, 1 tab daily for 3 days, 1/2 tab daily for 2 days PREDNISONE 84185255385 No Longer Active Jillina Frazell RECRUITING COORDINATOR Active CEFDINIR 300 MG CAPS 1 cap by mouth twice a day CEFDINIR 56079440496 No Longer Active Candyina Alexandru ONTIVEROSN Active E-Z SPACER ERIBERTO use with proair inhalier every 4 times as need. SPACER/AERO-HOLDING CHAMBERS 66615775953 No Longer Active Ezekielllina Jiml RECRUITING COORDINATOR Active PROAIR HFA 108 (90 BASE) MCG/ACT AERS 2 puffs every 4 hours as needed 2014 ALBUTEROL SULFATE 98069803798 No Longer Active Ezekielllina Jiml RECRUITING COORDINATOR Active CEFTIN 500 MG TAB 1 tablet by mouth twice daily for ten days. CEFUROXIME AXETIL 96435839769 No Longer Active Griselda Horvath APRN Active PREDNISONE 20 MG TAB 2 tabs daily for 3 days, 1 tab daily for 3 days, 1/2 tab daily for 2 days PREDNISONE 92242611619 No Longer Active Margarito Kelley MD Active CEPHALEXIN 500 MG CAPS 1 tablet by mouth three times daily for ten days 06/25 CEPHALEXIN 20549465870 No Longer Active Renée Adames APRN Active MEDROL (MARY) 4 MG TABS 6 pills on day 1, 5 pills on day 2, 4 pills on day 3, 4 pills on day 4, 2 pills on day 5, 1 pill on day 6 METHYLPREDNISOLONE 34944096340 No Longer Active Annita Mejia MD PhD Active ZITHROMAX Z-MARY 250 MG TABS 2 today and then 1 daily for 4 days AZITHROMYCIN 75375246966 No Longer Active Annita Mejia MD PhD Active GUAIFENESIN-CODEINE 100-10 MG/5ML SYRP 5ml every 4 to 6 hours as needed for cough GUAIFENESIN-CODEINE 76497051309 No Longer Active Annita Mejia MD PhD Active FLONASE 50 MCG/ACT SUSP 1 spray each nostril am and hs FLUTICASONE PROPIONATE 12791486347 No Longer Active Kendell Coronado MD Active MELOXICAM 15 MG TABS 1 po q day for pain with food MELOXICAM 88416415714 No Longer Active Kendell Coronado MD Active HYDROCODONE-ACETAMINOPHEN 5-325 MG TABS 1-2 q 4-6 hrs prn pain 20 tabs 07/04 HYDROCODONE-ACETAMINOPHEN 20980731786 No Longer Active Daniele Mcfadden DO Active PREDNISONE 20 MG TAB 1 tablet twice daily for 2 days, then 1 tablet once daily for 2 days PREDNISONE 05061501795 No Longer Active Daniele Mcfadden DO Active PREDNISONE 20 MG TAB 1 po bid 2 days, then daily for 2 days 12/27 PREDNISONE 29639768919 No Longer Active Alexander LOPEZ Active AZITHROMYCIN 250 MG TABS 2 po qd x 1 day, then 1 po qd x 4 days AZITHROMYCIN 58575236017 No Longer Active Daniele Mcfadden DO Active MUCINEX MAXIMUM STRENGTH [id number] 1 po qd GUAIFENESIN XR12H- TAB 32365316234 No Longer Active Daniele Mcfadden DO Active AZITHROMYCIN 250 MG TABS 2 po qd x 1 day, then 1 po qd x 4 days AZITHROMYCIN 22995197108 No Longer Active Margarito Kelley MD Active MUCINEX MAXIMUM STRENGTH [id number] 1 po qd MUCINEX MAXIMUM STRENGTH [id number]-[id number] GUAIFENESIN EC54Y-ESK Inactive PREDNISONE 20 MG TAB 1 po bid 2 days, then daily for 2 days 12/27 PREDNISONE 20 MG TAB 206492 PREDNISONE Inactive PREDNISONE 20 MG TAB 1 tablet twice daily for 2 days, then 1 tablet once daily for 2 days PREDNISONE 20 MG TAB 220257 PREDNISONE Inactive HYDROCODONE-ACETAMINOPHEN 5-325 MG TABS 1-2 q 4-6 hrs prn pain 20 tabs 07/04 HYDROCODONE-ACETAMINOPHEN 5-325 MG TABS 489831 HYDROCODONE- ACETAMINOPHEN Inactive MELOXICAM 15 MG TABS 1 po q day for pain with food MELOXICAM 15 MG TABS 171586 MELOXICAM Inactive FLONASE 50 MCG/ACT SUSP 1 spray each nostril am and hs FLONASE 50 MCG/ACT SUSP FLUTICASONE PROPIONATE Inactive GUAIFENESIN-CODEINE 100-10 MG/5ML SYRP 5ml every 4 to 6 hours as needed for cough GUAIFENESIN-CODEINE 100-10 MG/5ML SYRP 552598 GUAIFENESIN-CODEINE Inactive ZITHROMAX Z-MARY 250 MG TABS 2 today and then 1 daily for 4 days ZITHROMAX Z-MARY 250 MG TABS 1004215 AZITHROMYCIN Inactive CEFTIN 500 MG TAB 1 tablet by mouth twice daily for ten days. CEFTIN 500 MG TAB 556712 CEFUROXIME AXETIL Inactive PROAIR HFA 108 (90 BASE) MCG/ACT AERS 2 puffs every 4 hours as needed 2014 PROAIR HFA 108 (90 BASE) MCG/ACT AERS ALBUTEROL SULFATE Inactive E-Z SPACER ERIBERTO use with proair inhalier every 4 times as need. E-Z SPACER ERIBERTO SPACER/AERO-HOLDING CHAMBERS Inactive IRVING-D ALLERGY & CONGESTION [id number] 1 po bid IRVING-D ALLERGY & CONGESTION [id number] FEXOFENADINE-PSEUDOEPHEDRINE XR12H- TAB Inactive PREDNISONE 20 MG TAB 1 tablet twice daily for 2 days, then 1 tablet once daily for 2 days PREDNISONE 20 MG TAB 296621 PREDNISONE Inactive GUAIFENESIN 600 MG [id number] 1 twice a day as needed for congestion GUAIFENESIN 600 MG UC53U-VLD GUAIFENESIN Inactive FLUTICASONE PROPIONATE 50 MCG/ACT SUSP 1 to 2 sprays each nostril daily 03/20 FLUTICASONE PROPIONATE 50 MCG/ACT SUSP 4898719 FLUTICASONE PROPIONATE Inactive AZITHROMYCIN 250 MG TABS 2 po qd x 1 day, then 1 po qd x 4 days AZITHROMYCIN 250 MG TABS 2320549 AZITHROMYCIN Inactive AZITHROMYCIN 250 MG TABS 2 po qd x 1 day, then 1 po qd x 4 days AZITHROMYCIN 250 MG TABS 8898419 AZITHROMYCIN Inactive MEDROL (MARY) 4 MG TABS 6 pills on day 1, 5 pills on day 2, 4 pills on day 3, 4 pills on day 4, 2 pills on day 5, 1 pill on day 6 MEDROL (MARY) 4 MG TABS 194865 METHYLPREDNISOLONE Inactive CEPHALEXIN 500 MG CAPS 1 tablet by mouth three times daily for ten days 06/25 CEPHALEXIN 500 MG CAPS 661502 CEPHALEXIN Inactive PREDNISONE 20 MG TAB 2 tabs daily for 3 days, 1 tab daily for 3 days, 1/2 tab daily for 2 days PREDNISONE 20 MG TAB 171849 PREDNISONE Inactive CEFDINIR 300 MG CAPS 1 cap by mouth twice a day CEFDINIR 300 MG CAPS 925678 CEFDINIR Inactive PREDNISONE 20 MG TAB 2 tabs daily for 3 days, 1 tab daily for 3 days, 1/2 tab daily for 2 days PREDNISONE 20 MG TAB 129464 PREDNISONE Inactive PREDNISONE 20 MG TAB 2 tabs daily for 3 days, 1 tab daily for 3 days, 1/2 tab daily for 2 days PREDNISONE 20 MG TAB 400202 PREDNISONE Inactive CEFDINIR 300 MG CAPS by mouth twice a day CEFDINIR 300 MG CAPS 661918 CEFDINIR Inactive Immunizations Vaccine Administration Date Value Standard Description Seasonal influenza vaccine, injectable, containing preservative, for > 3 years old (Afluria, FluLaval, Fluzone, Fluvirin, Fluarix, Agriflu(>=18 yo)) Fluzone (>3 yrs.) [DDX820] Influenza, seasonal, injectable Human Papillomavirus vaccine (Gardasil) #2, (HPV #2) Gardasil [ CVX62] human papilloma virus vaccine, quadrivalent Human Papillomavirus Vaccine (Gardasil) #1 Given (HPV #1) Gardasil [CVX62] human papilloma virus vaccine, quadrivalent hepatitis A immunization #2 Havrix-Pedi hepatitis A vaccine, unspecified formulation Boostrix (Tetanus toxoid, reduced diphtheria toxoid and acellular pertussis vaccine, adsorbed), booster Boostrix [ARN086] tetanus toxoid, reduced diphtheria toxoid, and acellular [...] Negative Encounters Code Encounter Date Provider Facility CPT-48898 Level 3 Est. Patient 09:05:19 RN BABY Griselda Horvath [facility] CPT-79741 Level 3 Est. Patient 15:45:46 CDT Griselda Horvath [facility] CPT-76666 Level 3 Est. Patient 14:15:52 CDT Daniele W [facility] CPT-05448 Level 3 Est. Patient 13:57:19 RN BABY Margarito Kelley MD [facility] CPT-64897 Level 3 Est. Patient 09:16:05 RN BABY Margarito Kelley MD [facility] CPT-95761 Level 3 Est. Patient 15:37:06 RN BABY Daniele Mcfadden [facility] CPT-41930 Level 3 Est. Patient 11:56:34 RN BABY Renée Adames APRN [facility] CPT-56262 Level 3 Est. Patient 12:19:42 CDT Daniele Mcfadden [facility] CPT-42078 Level 3 Est. Patient 11:08:45 CDT Annita Mejia MD [facility] CPT-90345 Level 3 Est. Patient 12:00:17 CDT Kendell Coronado MD [facility] CPT-58043 Level 3 Est. Patient 12:27:25 CDT Daniele Mcfadden [facility] CPT-55899 Level 3 Est. Patient 18:45:11 RN BABY Daniele Mcfadden [facility] CPT-93570 Level 3 Est. Patient 10:12:24 RN BABY Daniele Mcfadden [facility] CPT-24170 Level 3 Est. Patient 14:35:11 RN BABY Daniele Mcfadden [facility] CPT-11783 Level 3 Est. Patient 14:11:04 CDT Daniele Mcfadden [facility] CPT-40584 Level 3 Est. Patient 10:52:13 CDT Alexander LOPEZ [facility] CPT-62403 Level 3 Est. Patient 11:01:08 RN BABY Daniele Mcfadden [facility] CPT-21373 Level 3 Est. Patient 10:55:35 CDT Daniele Mcfadden [facility] CPT-48028 Level 3 Est. Patient 14:03:08 CDT Daniele Mcfadden [facility] CPT-99011 Level 3 Est. Patient 11:26:19 CDT Margarito Kelley MD [facility] CPT-32569 Level 2 Est. Patient 15:32:04 RN BABY Daniele Mcfadden [facility] CPT-37198 Level 3 Est. Patient 16:01:26 RN BABY Daniele Mcfadden [facility] CPT-62092 Level 3 Est. Patient 06:37:10 RN BABY Daniele Mcfadden [facility] Procedures Code Procedure Name Date Entry Date Standard Description CPT-24815 Rapid Strep (Grp A) - LAB USE ONLY 13:06:06 CDT CPT-61830 Abd compl w upright 12:34:39 CDT CPT-44393 Immunization Single Admin 11:38:41 CDT CPT-60284 Fluzone Quadrivalent Intramuscular Suspension 0.5 ML 11: 38:41 CDT CPT-OV Office Visit 14:45:12 RN BABY CPT-64866 [employer] inc all organs plus proximal aorta and distal IVC 2012 12:13:02 RN BABY CPT-36441 Abd compl w upright 15:12:58 RN BABY CPT-32572 Venipuncture Draw Fee 14:38:32 RN BABY CPT-89045 Administration single or combination vaccine inc oral 17 :10:04 CDT CPT-93316 Gardasil 17:10:04 CDT CPT-17164 Venipuncture Draw Fee 16:07:54 RN BABY CPT-85004 Administration 2+ single or combination vaccines inc oral 17:22:02 CDT CPT-64977 Administration single or combination vaccine inc oral 17 :22:02 CDT CPT-23907 Influenza split virus > age 3 17:22:02 CDT CPT-85714 Gardasil 17:22:02 CDT CPT-05786 Administration 2+ single or combination vaccines inc oral 14:38:31 CDT CPT-08738 Administration single or combination vaccine inc oral 14 :38:31 CDT CPT-40730 Meningococcal Conjugate Vacine (Menactra) 14:38:31 CDT CPT-90868 Gardasil 14:38:31 CDT
--- OUTSIDE RECORDS SUMMARY | 2018-02-15 07:15 | XMS REPORT | Clinical Summary ---
Author Author Admin, [facility] Organization [facility] [employer] Address Unknown Phone Unavailable Allergies, Adverse Reactions, [...] unspecified site Sinusitis 473.9 Active Griselda Horvath PARTS IDENTIFIER Unspecified sinusitis (chronic) Eustachian tube dysfunction, right 381.81 Active Margarito Kelley MD Dysfunction of Eustachian tube Pharyngitis-Acute 462 Active Daniele Mcfadden DO Acute pharyngitis URI 465.9 Active Griselda Horvath PARTS IDENTIFIER Acute upper respiratory infections of unspecified site Allergic rhinitis 477.9 Active Jessika Nunes PARTS IDENTIFIER Allergic rhinitis, cause unspecified Acute rhinosinusitis 461.9 Active Jessika Nunes PARTS IDENTIFIER Acute sinusitis, unspecified Fever 780.60 Active Griselda [...] IRVING-D ALLERGY & CONGESTION 60-120 MG ORAL [id number] 1 tablet twice daily as needed for congestion/allergies FEXOFENADINE-PSEUDOEPHEDRINE 51111871319 Active Holly Sharma Active PREDNISONE 20 MG TAB 2 tabs daily for 3 days, 1 tab daily for 3 days, 1/2 tab daily for 2 days start tomorrow 07/31/16 PREDNISONE [id number] No Longer Active Jillina Frazell PARTS IDENTIFIER Active AZITHROMYCIN 250 MG TABS 2 po qd x 1 day, then 1 po qd x 4 days AZITHROMYCIN 16829907754 No Longer Active Jillina Frazell PARTS IDENTIFIER Active MUCINEX D 60-600 MG [id number] 1 po BID PRN Congestion PSEUDOEPHEDRINE-GUAIFENESIN 31048152200 No Longer Active Jessika Nunes APRN Active CEFDINIR 300 MG CAPS 1 po BID x 10 days CEFDINIR 10003836005 No Longer Active Jillina Frazell PARTS IDENTIFIER Active PREDNISONE 20 MG TAB 2 tabs daily for 3 days, 1 tab daily for 3 days, 1/2 tab daily for 2 days PREDNISONE 24436208974 No Longer Active Jillina Frazell PARTS IDENTIFIER Active FLUTICASONE PROPIONATE 50 MCG/ACT SUSP 1 to 2 sprays each nostril daily 03/20 FLUTICASONE PROPIONATE 45925890136 No Longer Active Jillina Frazell PARTS IDENTIFIER Active GUAIFENESIN 600 MG [id number] 1 twice a day as needed for congestion GUAIFENESIN 82051700272 No Longer Active Jillina Frazell PARTS IDENTIFIER Active CEFDINIR 300 MG CAPS by mouth twice a day CEFDINIR 64015066413 No Longer Active Jillina Frazell PARTS IDENTIFIER Active PREDNISONE 20 MG TAB 1 tablet twice daily for 2 days, then 1 tablet once daily for 2 days PREDNISONE 94761602408 No Longer Active Jillina Frazell PARTS IDENTIFIER Active PREDNISONE 20 MG TAB 2 tabs daily for 3 days, 1 tab daily for 3 days, 1/2 tab daily for 2 days PREDNISONE 19705892225 No Longer Active Margarito Kelley MD Active IRVING-D ALLERGY & CONGESTION [id number] 1 po bid FEXOFENADINE-PSEUDOEPHEDRINE [id number] 66856025887 No Longer Active Margarito Kelley MD Active PREDNISONE 20 MG TAB 2 tabs daily for 3 days, 1 tab daily for 3 days, 1/2 tab daily for 2 days PREDNISONE 63374523599 No Longer Active Jillina Frazell PARTS IDENTIFIER Active CEFDINIR 300 MG CAPS 1 cap by mouth twice a day CEFDINIR 79066631363 No Longer Active Jillina Frazell PARTS IDENTIFIER Active E-Z SPACER ERIBERTO use with proair inhalier every 4 times as need. SPACER/AERO-HOLDING CHAMBERS 05719500222 No Longer Active Jillina Frazell PARTS IDENTIFIER Active PROAIR HFA 108 (90 BASE) MCG/ACT AERS 2 puffs every 4 hours as needed 2014 ALBUTEROL SULFATE 21982087074 No Longer Active Jillina Frazell PARTS IDENTIFIER Active CEFTIN 500 MG TAB 1 tablet by mouth twice daily for ten days. CEFUROXIME AXETIL 53917781727 No Longer Active Jillina Frazell PARTS IDENTIFIER Active PREDNISONE 20 MG TAB 2 tabs daily for 3 days, 1 tab daily for 3 days, 1/2 tab daily for 2 days PREDNISONE 08057646841 No Longer Active Margarito Kelley MD Active CEPHALEXIN 500 MG CAPS 1 tablet by mouth three times daily for ten days 06/25 CEPHALEXIN 91388798669 No Longer Active Renée Adames APRN Active MEDROL (MARY) 4 MG TABS 6 pills on day 1, 5 pills on day 2, 4 pills on day 3, 4 pills on day 4, 2 pills on day 5, 1 pill on day 6 METHYLPREDNISOLONE 06139933915 No Longer Active Annita Mejia MD PhD Active ZITHROMAX Z-MARY 250 MG TABS 2 today and then 1 daily for 4 days AZITHROMYCIN 16580797266 No Longer Active Annita Mejia MD PhD Active GUAIFENESIN-CODEINE 100-10 MG/5ML SYRP 5ml every 4 to 6 hours as needed for cough GUAIFENESIN-CODEINE 20197981516 No Longer Active Annita Mejia MD PhD Active FLONASE 50 MCG/ACT SUSP 1 spray each nostril am and hs FLUTICASONE PROPIONATE 04701830942 No Longer Active Kendell Coronado MD Active MELOXICAM 15 MG TABS 1 po q day for pain with food MELOXICAM 28868630845 No Longer Active Kendell Coronado MD Active HYDROCODONE-ACETAMINOPHEN 5-325 MG TABS 1-2 q 4-6 hrs prn pain 20 tabs 07/04 HYDROCODONE-ACETAMINOPHEN 64417400417 No Longer Active Daniele Mcfadden DO Active PREDNISONE 20 MG TAB 1 tablet twice daily for 2 days, then 1 tablet once daily for 2 days PREDNISONE 72959892866 No Longer Active Daniele Mcfadden DO Active PREDNISONE 20 MG TAB 1 po bid 2 days, then daily for 2 days 12/27 PREDNISONE 36673760883 No Longer Active Alexander LOPEZ Active AZITHROMYCIN 250 MG TABS 2 po qd x 1 day, then 1 po qd x 4 days AZITHROMYCIN 28502152591 No Longer Active Daniele Mcfadden DO Active MUCINEX MAXIMUM STRENGTH [id number] 1 po qd GUAIFENESIN XR12H- TAB 24248326419 No Longer Active Daniele Mcfadden DO Active AZITHROMYCIN 250 MG TABS 2 po qd x 1 day, then 1 po qd x 4 days AZITHROMYCIN 16011072497 No Longer Active Margarito Kelley MD Active MUCINEX MAXIMUM STRENGTH [id number]-LET 1 po qd MUCINEX MAXIMUM STRENGTH [id number]-CDU GUAIFENESIN PZ54H-BTZ Inactive PREDNISONE 20 MG TAB 1 po bid 2 days, then daily for 2 days 12/27 PREDNISONE 20 MG TAB 918070 PREDNISONE Inactive PREDNISONE 20 MG TAB 1 tablet twice daily for 2 days, then 1 tablet once daily for 2 days PREDNISONE 20 MG TAB 612462 PREDNISONE Inactive HYDROCODONE-ACETAMINOPHEN 5-325 MG TABS 1-2 q 4-6 hrs prn pain 20 tabs 07/04 HYDROCODONE-ACETAMINOPHEN 5-325 MG TABS 284119 HYDROCODONE- ACETAMINOPHEN Inactive MELOXICAM 15 MG TABS 1 po q day for pain with food MELOXICAM 15 MG TABS 256512 MELOXICAM Inactive FLONASE 50 MCG/ACT SUSP 1 spray each nostril am and hs FLONASE 50 MCG/ACT SUSP 2014700 FLUTICASONE PROPIONATE Inactive GUAIFENESIN-CODEINE 100-10 MG/5ML SYRP 5ml every 4 to 6 hours as needed for cough GUAIFENESIN-CODEINE 100-10 MG/5ML SYRP 556453 GUAIFENESIN-CODEINE Inactive ZITHROMAX Z-MARY 250 MG TABS 2 today and then 1 daily for 4 days ZITHROMAX Z-MARY 250 MG TABS 9070065 AZITHROMYCIN Inactive CEFTIN 500 MG TAB 1 tablet by mouth twice daily for ten days. CEFTIN 500 MG TAB 265228 CEFUROXIME AXETIL Inactive PROAIR HFA 108 (90 BASE) MCG/ACT AERS 2 puffs every 4 hours as needed 2014 PROAIR HFA 108 (90 BASE) MCG/ACT AERS ALBUTEROL SULFATE Inactive E-Z SPACER ERIBERTO use with proair inhalier every 4 times as need. E-Z SPACER ERIBERTO SPACER/AERO-HOLDING CHAMBERS Inactive IRVING-D ALLERGY & CONGESTION [id number] 1 po bid IRVING-D ALLERGY & CONGESTION [id number] FEXOFENADINE-PSEUDOEPHEDRINE XR12H- TAB Inactive PREDNISONE 20 MG TAB 1 tablet twice daily for 2 days, then 1 tablet once daily for 2 days PREDNISONE 20 MG TAB 188989 PREDNISONE Inactive GUAIFENESIN 600 MG SL28D-EXR 1 twice a day as needed for congestion GUAIFENESIN 600 MG [id number]-DTN GUAIFENESIN Inactive FLUTICASONE PROPIONATE 50 MCG/ACT SUSP 1 to 2 sprays each nostril daily 03/20 FLUTICASONE PROPIONATE 50 MCG/ACT SUSP 1269382 FLUTICASONE PROPIONATE Inactive MUCINEX D 60-600 MG [id number]-MRZ 1 po BID PRN Congestion MUCINEX D 60-600 MG [id number] PSEUDOEPHEDRINE-GUAIFENESIN Inactive AZITHROMYCIN 250 MG TABS 2 po qd x 1 day, then 1 po qd x 4 days AZITHROMYCIN 250 MG TABS 9339457 AZITHROMYCIN Inactive AZITHROMYCIN 250 MG TABS 2 po qd x 1 day, then 1 po qd x 4 days AZITHROMYCIN 250 MG TABS 5539470 AZITHROMYCIN Inactive MEDROL (MARY) 4 MG TABS 6 pills on day 1, 5 pills on day 2, 4 pills on day 3, 4 pills on day 4, 2 pills on day 5, 1 pill on day 6 MEDROL (MARY) 4 MG TABS 958788 METHYLPREDNISOLONE Inactive CEPHALEXIN 500 MG CAPS 1 tablet by mouth three times daily for ten days 06/25 CEPHALEXIN 500 MG CAPS 785835 CEPHALEXIN Inactive PREDNISONE 20 MG TAB 2 tabs daily for 3 days, 1 tab daily for 3 days, 1/2 tab daily for 2 days PREDNISONE 20 MG TAB 460855 PREDNISONE Inactive CEFDINIR 300 MG CAPS 1 cap by mouth twice a day CEFDINIR 300 MG CAPS 695281 CEFDINIR Inactive PREDNISONE 20 MG TAB 2 tabs daily for 3 days, 1 tab daily for 3 days, 1/2 tab daily for 2 days PREDNISONE 20 MG TAB 601517 PREDNISONE Inactive PREDNISONE 20 MG TAB 2 tabs daily for 3 days, 1 tab daily for 3 days, 1/2 tab daily for 2 days PREDNISONE 20 MG TAB 059201 PREDNISONE Inactive CEFDINIR 300 MG CAPS by mouth twice a day CEFDINIR 300 MG CAPS 186760 CEFDINIR Inactive PREDNISONE 20 MG TAB 2 tabs daily for 3 days, 1 tab daily for 3 days, 1/2 tab daily for 2 days PREDNISONE 20 MG TAB 220477 PREDNISONE Inactive CEFDINIR 300 MG CAPS 1 po BID x 10 days CEFDINIR 300 MG CAPS 20021026 CEFDINIR Inactive AZITHROMYCIN 250 MG TABS 2 po qd x 1 day, then 1 po qd x 4 days AZITHROMYCIN 250 MG TABS 3990458 AZITHROMYCIN Inactive PREDNISONE 20 MG TAB 2 tabs daily for 3 days, 1 tab daily for 3 days, 1/2 tab daily for 2 days start tomorrow 07/31/16 PREDNISONE 20 MG TAB 968572 PREDNISONE Inactive Immunizations Vaccine Administration Date Value Standard Description Human Papillomavirus vaccine (Gardasil) #2, (HPV #2) Gardasil [ CVX62] human papilloma virus vaccine, quadrivalent Seasonal influenza vaccine, injectable, containing preservative, for > 3 years old (Afluria, FluLaval, Fluzone, Fluvirin, Fluarix, Agriflu(>=18 yo)) Fluzone (>3 yrs.) [CHK302] Influenza, seasonal, injectable Human Papillomavirus Vaccine (Gardasil) #1 Given (HPV #1) Gardasil [CVX62] human papilloma virus vaccine, quadrivalent hepatitis A immunization #2 Havrix-Pedi hepatitis A vaccine, unspecified formulation Boostrix (Tetanus toxoid, reduced diphtheria toxoid and acellular pertussis vaccine, adsorbed), booster Boostrix [LCU519] tetanus toxoid, reduced diphtheria toxoid, and acellular [...] Negative;Positive Encounters Code Encounter Date Provider Facility CPT-78760 Level 3 Est. 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 Patient 08:43:59 HOB MACHINE OPERATOR Jessika Nunes [facility] CPT-80625 Level 3 Est. Patient 09:05:19 HOB MACHINE OPERATOR Griselda Horvath [facility] CPT-41816 Level 3 Est. Patient 15:45:46 CDT Griselda Horvath [facility] CPT-30347 Level 3 Est. Patient 14:15:52 CDT Daniele Mcfadden DO [facility] CPT-17675 Level 3 Est. Patient 13:57:19 HOB MACHINE OPERATOR Margarito Kelley MD [facility] CPT-07689 Level 3 Est. Patient 09:16:05 HOB MACHINE OPERATOR Margarito Kelley MD [facility] CPT-30972 Level 3 Est. Patient 15:37:06 HOB MACHINE OPERATOR Daniele Mcfadden [facility] CPT-24813 Level 3 Est. Patient 11:56:34 HOB MACHINE OPERATOR Renée Adames ALEX [facility] CPT-56269 Level 3 Est. Patient 12:19:42 CDT Daniele Mcfadden [facility] CPT-12486 Level 3 Est. Patient 11:08:45 CDT Annita Mejia MD PhD [facility] CPT-51207 Level 3 Est. Patient 12:00:17 CDT Kendell Coronado MD [facility] CPT-54288 Level 3 Est. Patient 12:27:25 CDT Daniele Mcfadden [facility] CPT-28971 Level 3 Est. Patient 18:45:11 HOB MACHINE OPERATOR Daniele Mcfadden [facility] CPT-55335 Level 3 Est. Patient 10:12:24 HOB MACHINE OPERATOR Daniele Mcfadden [facility] CPT-10108 Level 3 Est. Patient 14:35:11 HOB MACHINE OPERATOR Daniele Mcfadden [facility] CPT-50476 Level 3 Est. Patient 14:11:04 CDT Daniele Mcfadden DO [facility] CPT-41764 Level 3 Est. Patient 10:52:13 CDT Alexander LOPEZ [facility] CPT-88431 Level 3 Est. Patient 11:01:08 HOB MACHINE OPERATOR Daniele Mcfadden [facility] CPT-67143 Level 3 Est. Patient 10:55:35 CDT Daniele Mcfadden [facility] CPT-59952 Level 3 Est. Patient 14:03:08 CDT Daniele Mcfadden [facility] CPT-18268 Level 3 Est. Patient 11:26:19 CDT Margarito Kelley MD [facility] CPT-90878 Level 2 Est. Patient 15:32:04 HOB MACHINE OPERATOR Daniele Mcfadden [facility] CPT-43293 Level 3 Est. Patient 16:01:26 HOB MACHINE OPERATOR Daniele Mcfadden [facility] CPT-85623 Level 3 Est. Patient 06:37:10 HOB MACHINE OPERATOR Daniele Salter Bogdan [facility] Procedures Code Procedure Name Date Entry Date Standard Description CPT-17449 Addl Vx - Ix admin via ID IM or jet injects without counseling by physician 14:37:19 CDT CPT-26691 Meningococcal B, recombinant vaccine 14:37:19 CDT 03/05 CPT-97155 First Vx - Ix admin via ID IM or jet injects without counseling by physician 14:37:19 CDT CPT-88408 Menveo Intramuscular Solution Reconstituted 14:37:19 CDT CPT-95977 Meningococcal Conjugate Vacine (Menactra) 11:20:04 CDT CPT-80970 Throat Culture - LAB USE ONLY 12:15:45 HOB MACHINE OPERATOR CPT-00114 Shani Flu A/B - LAB USE ONLY 12:15:45 HOB MACHINE OPERATOR CPT-28181 Rapid Strep (Reflex throat) - LAB USE ONLY 12:15:45 HOB MACHINE OPERATOR CPT-44584 Rapid Strep (Grp A) - LAB USE ONLY 13:06:06 CDT CPT-08365 Abd compl w upright 12:34:39 CDT CPT-02323 Immunization Single Admin 11:38:41 CDT CPT-79598 Fluzone Quadrivalent Intramuscular Suspension 0.5 ML 11: 38:41 CDT CPT-OV Office Visit 14:45:12 HOB MACHINE OPERATOR CPT-49119 [employer] all organs plus proximal aorta and distal IVC 2012 12:13:02 HOB MACHINE OPERATOR CPT-55177 Abd compl w upright 15:12:58 HOB MACHINE OPERATOR CPT-77789 Venipuncture Draw Fee 14:38:32 HOB MACHINE OPERATOR CPT-63967 Administration single or combination vaccine inc oral 17 :10:04 CDT CPT-20079 Gardasil 17:10:04 CDT CPT-29104 Venipuncture Draw Fee 16:07:54 HOB MACHINE OPERATOR CPT-97456 Administration 2+ single or combination vaccines inc oral 17:22:02 CDT CPT-51402 Administration single or combination vaccine inc oral 17 :22:02 CDT CPT-30468 Influenza split virus > age 3 17:22:02 CDT CPT-90496 Gardasil 17:22:02 CDT CPT-29476 Administration 2+ single or combination vaccines inc oral 14:38:31 CDT CPT-66443 Administration single or combination vaccine inc oral 14 :38:31 CDT CPT-92805 Meningococcal Conjugate Vacine (Menactra) 14:38:31 CDT CPT-14777 Gardasil 14:38:31 CDT
--- OUTSIDE RECORDS SUMMARY | 2018-02-15 07:16 | XMS REPORT | Clinical Summary ---
Author Author Admin, OLEG Organization [employer] Address Unknown Phone Unavailable Allergies, Adverse Reactions, [...] unspecified site Sinusitis 473.9 Active Griselda Horvath HAND THERMAL CUTTER Unspecified sinusitis (chronic) Eustachian tube dysfunction, right 381.81 Active Margarito Kelley MD Dysfunction of Eustachian tube Pharyngitis-Acute 462 Active Daniele Mcfadden DO Acute pharyngitis URI 465.9 Active Griselda Horvath HAND THERMAL CUTTER Acute upper respiratory infections of unspecified site Allergic rhinitis 477.9 Active Jessika Nunes HAND THERMAL CUTTER Allergic rhinitis, cause unspecified Acute rhinosinusitis 461.9 Active Jessika uNnes HAND THERMAL CUTTER Acute sinusitis, unspecified Fever 780.60 Active Griselda Horvath HAND THERMAL CUTTER Fever, unspecified ALLERGIC RHINITIS ICD-477.9 Inactive Errol [...] for 2 days start tomorrow 07/31/16 PREDNISONE [id number] No Longer Active Jillina Frazell HAND THERMAL CUTTER Active AZITHROMYCIN 250 MG TABS 2 po qd x 1 day, then 1 po qd x 4 days AZITHROMYCIN [id number] No Longer Active Jillina Frazell HAND THERMAL CUTTER Active MUCINEX D 60-600 MG [id number]-LKM 1 po BID PRN Congestion PSEUDOEPHEDRINE-GUAIFENESIN [id number] No Longer Active Jessikatanner Nunes HAND THERMAL CUTTER Active CEFDINIR 300 MG CAPS 1 po BID x 10 days CEFDINIR 90763093842 No Longer Active Jillina Frazell HAND THERMAL CUTTER Active PREDNISONE 20 MG TAB 2 tabs daily for 3 days, 1 tab daily for 3 days, 1/2 tab daily for 2 days PREDNISONE 26246755745 No Longer Active Jillina Frazell HAND THERMAL CUTTER Active FLUTICASONE PROPIONATE 50 MCG/ACT SUSP 1 to 2 sprays each nostril daily 03/20 FLUTICASONE PROPIONATE 59740485218 No Longer Active Jillina Frazell HAND THERMAL CUTTER Active GUAIFENESIN 600 MG [id number]-SLE 1 twice a day as needed for congestion GUAIFENESIN 05503673916 No Longer Active Jillina Frazell HAND THERMAL CUTTER Active CEFDINIR 300 MG CAPS by mouth twice a day CEFDINIR 69331267238 No Longer Active Jillina Frazell HAND THERMAL CUTTER Active PREDNISONE 20 MG TAB 1 tablet twice daily for 2 days, then 1 tablet once daily for 2 days PREDNISONE 90184742485 No Longer Active Jillina Frazell HAND THERMAL CUTTER Active PREDNISONE 20 MG TAB 2 tabs daily for 3 days, 1 tab daily for 3 days, 1/2 tab daily for 2 days PREDNISONE 03818291912 No Longer Active Margarito Kelley MD Active IRVING-D ALLERGY & CONGESTION [id number]-OAP 1 po bid FEXOFENADINE-PSEUDOEPHEDRINE EG89N-AFO 41907675698 No Longer Active Margarito Kelley MD Active PREDNISONE 20 MG TAB 2 tabs daily for 3 days, 1 tab daily for 3 days, 1/2 tab daily for 2 days PREDNISONE 87403188652 No Longer Active Jillina Frazell HAND THERMAL CUTTER Active CEFDINIR 300 MG CAPS 1 cap by mouth twice a day CEFDINIR 15934849344 No Longer Active Jillina Frazell HAND THERMAL CUTTER Active E-Z SPACER ERIBERTO use with proair inhalier every 4 times as need. SPACER/AERO-HOLDING CHAMBERS 33195568242 No Longer Active Jillina Frazell HAND THERMAL CUTTER Active PROAIR HFA 108 (90 BASE) MCG/ACT AERS 2 puffs every 4 hours as needed 2014 ALBUTEROL SULFATE 09742128465 No Longer Active Jillina Frazell HAND THERMAL CUTTER Active CEFTIN 500 MG TAB 1 tablet by mouth twice daily for ten days. CEFUROXIME AXETIL 14383689138 No Longer Active Jillina Frazell HAND THERMAL CUTTER Active PREDNISONE 20 MG TAB 2 tabs daily for 3 days, 1 tab daily for 3 days, 1/2 tab daily for 2 days PREDNISONE 79117709710 No Longer Active Margarito Kelley MD Active CEPHALEXIN 500 MG CAPS 1 tablet by mouth three times daily for ten days 06/25 CEPHALEXIN 59499472522 No Longer Active Renée Adames APRN Active MEDROL (MARY) 4 MG TABS 6 pills on day 1, 5 pills on day 2, 4 pills on day 3, 4 pills on day 4, 2 pills on day 5, 1 pill on day 6 METHYLPREDNISOLONE 88395846298 No Longer Active Annita Mejia MD PhD Active ZITHROMAX Z-MARY 250 MG TABS 2 today and then 1 daily for 4 days AZITHROMYCIN 57722902654 No Longer Active Annita Mejia MD PhD Active GUAIFENESIN-CODEINE 100-10 MG/5ML SYRP 5ml every 4 to 6 hours as needed for cough GUAIFENESIN-CODEINE 85038520807 No Longer Active Annita Mejia MD PhD Active FLONASE 50 MCG/ACT SUSP 1 spray each nostril am and hs FLUTICASONE PROPIONATE 01920040945 No Longer Active Kendell Coronado MD Active MELOXICAM 15 MG TABS 1 po q day for pain with food MELOXICAM 25482608875 No Longer Active Kendell Coronado MD Active HYDROCODONE-ACETAMINOPHEN 5-325 MG TABS 1-2 q 4-6 hrs prn pain 20 tabs 07/04 HYDROCODONE-ACETAMINOPHEN 43918125759 No Longer Active Daniele Mcfadden DO Active PREDNISONE 20 MG TAB 1 tablet twice daily for 2 days, then 1 tablet once daily for 2 days PREDNISONE 75126609862 No Longer Active Daniele Mcfadden DO Active PREDNISONE 20 MG TAB 1 po bid 2 days, then daily for 2 days 12/27 PREDNISONE 02051481220 No Longer Active Alexander LOPEZ Active AZITHROMYCIN 250 MG TABS 2 po qd x 1 day, then 1 po qd x 4 days AZITHROMYCIN 97801458412 No Longer Active Daniele Mcfadden DO Active MUCINEX MAXIMUM STRENGTH [id number]-SHI 1 po qd GUAIFENESIN XR12H- TAB 61811827395 No Longer Active Daniele Mcfadden DO Active AZITHROMYCIN 250 MG TABS 2 po qd x 1 day, then 1 po qd x 4 days AZITHROMYCIN 72061871834 No Longer Active Margarito Kelley MD Active MUCINEX MAXIMUM STRENGTH QG82O-ADD 1 po qd MUCINEX MAXIMUM STRENGTH KQ45I-OOI GUAIFENESIN LG40R-SNA Inactive PREDNISONE 20 MG TAB 1 po bid 2 days, then daily for 2 days 12/27 PREDNISONE 20 MG TAB 497023 PREDNISONE Inactive PREDNISONE 20 MG TAB 1 tablet twice daily for 2 days, then 1 tablet once daily for 2 days PREDNISONE 20 MG TAB 682995 PREDNISONE Inactive HYDROCODONE-ACETAMINOPHEN 5-325 MG TABS 1-2 q 4-6 hrs prn pain 20 tabs 07/04 HYDROCODONE-ACETAMINOPHEN 5-325 MG TABS 475627 HYDROCODONE- ACETAMINOPHEN Inactive MELOXICAM 15 MG TABS 1 po q day for pain with food MELOXICAM 15 MG TABS 295921 MELOXICAM Inactive FLONASE 50 MCG/ACT SUSP 1 spray each nostril am and hs FLONASE 50 MCG/ACT SUSP FLUTICASONE PROPIONATE Inactive GUAIFENESIN-CODEINE 100-10 MG/5ML SYRP 5ml every 4 to 6 hours as needed for cough GUAIFENESIN-CODEINE 100-10 MG/5ML SYRP 764794 GUAIFENESIN-CODEINE Inactive ZITHROMAX Z-MARY 250 MG TABS 2 today and then 1 daily for 4 days ZITHROMAX Z-MARY 250 MG TABS 1818263 AZITHROMYCIN Inactive CEFTIN 500 MG TAB 1 tablet by mouth twice daily for ten days. CEFTIN 500 MG TAB 465489 CEFUROXIME AXETIL Inactive PROAIR HFA 108 (90 BASE) MCG/ACT AERS 2 puffs every 4 hours as needed 2014 PROAIR HFA 108 (90 BASE) MCG/ACT AERS ALBUTEROL SULFATE Inactive E-Z SPACER ERIBERTO use with proair inhalier every 4 times as need. E-Z SPACER ERIBERTO SPACER/AERO-HOLDING CHAMBERS Inactive IRVING-D ALLERGY & CONGESTION [id number] 1 po bid IRVING-D ALLERGY & CONGESTION GH97B-NVU FEXOFENADINE-PSEUDOEPHEDRINE XR12H- TAB Inactive PREDNISONE 20 MG TAB 1 tablet twice daily for 2 days, then 1 tablet once daily for 2 days PREDNISONE 20 MG TAB 065452 PREDNISONE Inactive GUAIFENESIN 600 MG SU36V-GNR 1 twice a day as needed for congestion GUAIFENESIN 600 MG QS29I-EBM GUAIFENESIN Inactive FLUTICASONE PROPIONATE 50 MCG/ACT SUSP 1 to 2 sprays each nostril daily 03/20 FLUTICASONE PROPIONATE 50 MCG/ACT SUSP 4059055 FLUTICASONE PROPIONATE Inactive MUCINEX D 60-600 MG QD07M-XDF 1 po BID PRN Congestion MUCINEX D 60-600 MG GY47B-QQJ PSEUDOEPHEDRINE-GUAIFENESIN Inactive AZITHROMYCIN 250 MG TABS 2 po qd x 1 day, then 1 po qd x 4 days AZITHROMYCIN 250 MG TABS 1005626 AZITHROMYCIN Inactive AZITHROMYCIN 250 MG TABS 2 po qd x 1 day, then 1 po qd x 4 days AZITHROMYCIN 250 MG TABS 5596372 AZITHROMYCIN Inactive MEDROL (MARY) 4 MG TABS 6 pills on day 1, 5 pills on day 2, 4 pills on day 3, 4 pills on day 4, 2 pills on day 5, 1 pill on day 6 MEDROL (MARY) 4 MG TABS 877059 METHYLPREDNISOLONE Inactive CEPHALEXIN 500 MG CAPS 1 tablet by mouth three times daily for ten days 06/25 CEPHALEXIN 500 MG CAPS 405874 CEPHALEXIN Inactive PREDNISONE 20 MG TAB 2 tabs daily for 3 days, 1 tab daily for 3 days, 1/2 tab daily for 2 days PREDNISONE 20 MG TAB 580139 PREDNISONE Inactive CEFDINIR 300 MG CAPS 1 cap by mouth twice a day CEFDINIR 300 MG CAPS 937007 CEFDINIR Inactive PREDNISONE 20 MG TAB 2 tabs daily for 3 days, 1 tab daily for 3 days, 1/2 tab daily for 2 days PREDNISONE 20 MG TAB 895446 PREDNISONE Inactive PREDNISONE 20 MG TAB 2 tabs daily for 3 days, 1 tab daily for 3 days, 1/2 tab daily for 2 days PREDNISONE 20 MG TAB 003733 PREDNISONE Inactive CEFDINIR 300 MG CAPS by mouth twice a day CEFDINIR 300 MG CAPS 20021026 CEFDINIR Inactive PREDNISONE 20 MG TAB 2 tabs daily for 3 days, 1 tab daily for 3 days, 1/2 tab daily for 2 days PREDNISONE 20 MG TAB 324515 PREDNISONE Inactive CEFDINIR 300 MG CAPS 1 po BID x 10 days CEFDINIR 300 MG CAPS 20021026 CEFDINIR Inactive AZITHROMYCIN 250 MG TABS 2 po qd x 1 day, then 1 po qd x 4 days AZITHROMYCIN 250 MG TABS 4784536 AZITHROMYCIN Inactive PREDNISONE 20 MG TAB 2 tabs daily for 3 days, 1 tab daily for 3 days, 1/2 tab daily for 2 days start tomorrow 07/31/16 PREDNISONE 20 MG TAB 322947 PREDNISONE Inactive Immunizations Vaccine Administration Date Value Standard Description Human Papillomavirus vaccine (Gardasil) #2, (HPV #2) Gardasil [ CVX62] human papilloma virus vaccine, quadrivalent Seasonal influenza vaccine, injectable, containing preservative, for > 3 years old (Afluria, FluLaval, Fluzone, Fluvirin, Fluarix, Agriflu(>=18 yo)) Fluzone (>3 yrs.) [GUD014] Influenza, seasonal, injectable Human Papillomavirus Vaccine (Gardasil) #1 Given (HPV #1) Gardasil [CVX62] human papilloma virus vaccine, quadrivalent hepatitis A immunization #2 Havrix-Pedi hepatitis A vaccine, unspecified formulation Boostrix (Tetanus toxoid, reduced diphtheria toxoid and acellular pertussis vaccine, adsorbed), booster Boostrix [ASJ362] tetanus toxoid, reduced diphtheria toxoid, and acellular [...] Negative;Positive Encounters Code Encounter Date Provider Facility CPT-95409 Level 3 Est. Patient 10:49:47 STRUCTURAL ANALYSIS ENGINEER Griselda Horvath [facility] CPT-98819 Level 3 Est. Patient 08:43:59 STRUCTURAL ANALYSIS ENGINEER Jessika Des [facility] CPT-52876 Level 3 Est. Patient 09:05:19 STRUCTURAL ANALYSIS ENGINEER Griselda Horvath [facility]-29484 Level 3 Est. Patient 15:45:46 CDT Griselda Horvath [facility] CPT-18452 Level 3 Est. Patient 14:15:52 CDT Daniele Mcfadden [facility]-51005 Level 3 Est. Patient 13:57:19 STRUCTURAL ANALYSIS ENGINEER Margarito Kelley MD [facility]-64130 Level 3 Est. Patient 09:16:05 STRUCTURAL ANALYSIS ENGINEER Margarito Kelley MD [facility] CPT-56191 Level 3 Est. Patient 15:37:06 STRUCTURAL ANALYSIS ENGINEER Daniele Mcfadden [facility] CPT-08689 Level 3 Est. Patient 11:56:34 STRUCTURAL ANALYSIS ENGINEER Renée Adames [facility] CPT-31443 Level 3 Est. Patient 12:19:42 CDT Daniele Mcfadden [facility] CPT-01289 Level 3 Est. Patient 11:08:45 CDT Annita Mejia MD PhD [facility] CPT-81331 Level 3 Est. Patient 12:00:17 CDT Kendell Coronado MD [facility] CPT-39416 Level 3 Est. Patient 12:27:25 CDT Daniele Mcfadden [facility]-96415 Level 3 Est. Patient 18:45:11 STRUCTURAL ANALYSIS ENGINEER Daniele Mcfadden [facility] CPT-74581 Level 3 Est. Patient 10:12:24 STRUCTURAL ANALYSIS ENGINEER Daniele Mcfadden [facility] CPT-47228 Level 3 Est. Patient 14:35:11 STRUCTURAL ANALYSIS ENGINEER Daniele Mcfadden [facility] CPT-77582 Level 3 Est. Patient 14:11:04 CDT Daniele Mcfadden [facility] CPT-50791 Level 3 Est. Patient 10:52:[address] [facility] CPT-74566 Level 3 Est. Patient 11:01:08 STRUCTURAL ANALYSIS ENGINEER Daniele Mcfadden [facility] CPT-92313 Level 3 Est. Patient 10:55:35 CDT Daniele Mcfadden [facility] CPT-59094 Level 3 Est. Patient 14:03:08 CDT Daniele Mcfadden [facility] CPT-12544 Level 3 Est. Patient 11:26:19 CDT Margarito Kelley MD [facility] CPT-37492 Level 2 Est. Patient 15:32:04 STRUCTURAL ANALYSIS ENGINEER Daniele Mcfadden [facility] CPT-69794 Level 3 Est. Patient 16:01:26 STRUCTURAL ANALYSIS ENGINEER Daniele Mcfadden [facility] CPT-16595 Level 3 Est. Patient 06:37:10 STRUCTURAL ANALYSIS ENGINEER Danilee Mcfadden [facility] Procedures Code Procedure Name Date Entry Date Standard Description CPT-75270 Throat Culture - LAB USE ONLY 12:15:45 STRUCTURAL ANALYSIS ENGINEER CPT-88867 Misa Flu A/B - LAB USE ONLY 12:15:45 STRUCTURAL ANALYSIS ENGINEER CPT-44788 Rapid Strep (Reflex throat) - LAB USE ONLY 12:15:45 STRUCTURAL ANALYSIS ENGINEER CPT-17511 Rapid Strep (Grp A) - LAB USE ONLY 13:06:06 CDT CPT-26617 Abd compl w upright 12:34:39 CDT CPT-45879 Immunization Single Admin 11:38:41 CDT CPT-85506 Fluzone Quadrivalent Intramuscular Suspension 0.5 ML 11: 38:41 CDT CPT-OV Office Visit 14:45:12 STRUCTURAL ANALYSIS ENGINEER CPT-34080 [employer] all organs plus proximal aorta and distal IVC 2012 12:13:02 STRUCTURAL ANALYSIS ENGINEER CPT-47195 Abd compl w upright 15:12:58 STRUCTURAL ANALYSIS ENGINEER CPT-95940 Venipuncture Draw Fee 14:38:32 STRUCTURAL ANALYSIS ENGINEER CPT-32920 Administration single or combination vaccine inc oral 17 :10:04 CDT CPT-22005 Gardasil 17:10:04 CDT CPT-57305 Venipuncture Draw Fee 16:07:54 STRUCTURAL ANALYSIS ENGINEER CPT-38363 Administration 2+ single or combination vaccines inc oral 17:22:02 CDT CPT-68376 Administration single or combination vaccine inc oral 17 :22:02 CDT CPT-56836 Influenza split virus > age 3 17:22:02 CDT CPT-05022 Gardasil 17:22:02 CDT CPT-80540 Administration 2+ single or combination vaccines inc oral 14:38:31 CDT CPT-15230 Administration single or combination vaccine inc oral 14 :38:31 CDT CPT-63430 Meningococcal Conjugate Vacine (Menactra) 14:38:31 CDT CPT-55365 Gardasil 14:38:31 CDT
--- OUTSIDE RECORDS SUMMARY | 2018-02-15 07:17 | XMS REPORT ---
Author Author [facility] Medical Staff Organization [facility] Address [address] [place] [id number] Phone [phone] Care Team Providers Care Subsurface Augmentee Operator Name Role Phone ASHWINI MCFADDEN DO PP [phone] Summary purpose TRANSITION OF CARE AUTO GENERATION Chief Complaint and Reason for Visit No authorized Reason for Visit (Admitting Diagnosis) is available for this visit. Problem list No authorized problems tracked for continuity of care are available for this visit. Encounters No authorized problems tracked for encounter diagnoses are available for this visit. Medications No home medications recorded for this patient visit Allergies, adverse reactions, alerts Allergen Category Ingredient Status Reaction Severity Onset Penicillins Drug Allergy Penicillins Confirmed or Verified Immunizations No immunizations recorded for this patient visit Relevant diagnostic tests and/or laboratory data RESULTS Radiology Results [id number]:45:00 CT ABD/PEL W CONTRAST PACs Image DATE OF EXAM: May 22 2014 [id number] ABD/PELV W CONTRAST : RADIOLOGY REPORT DATE OF SERVICE: 05/22/14 HISTORY: Nausea, vomiting, severe right lower quadrant pain. CT OF THE ABDOMEN AND PELVIS WITH [id number] HOURS Axial scans were obtained at 5 mm intervals following administration of oral and intravenous contrast. 100 mL Isovue-300 was utilized for intravenous enhancement. The liver and spleen are normal. The bile ducts are normal in caliber. There has been prior cholecystectomy. The pancreas and adrenal glands are normal. The kidneys are unobstructed with no masses or calculi. The visualized abdominal and pelvic bowel loops are normal. The bladder is unremarkable. The uterus and adnexa are normal. There is no free fluid. The appendix is well-visualized and is normal in appearance without inflammatory change. No hernia defect is present. IMPRESSION: Negative CT abdomen and pelvis. MD GEOFF Renteria/teresa05/23/2014 14:17:00 / 05/23/2014 15:40:51 cc:Dr Mcfadden This document has been electronically Signed by: On: DATE OF EXAM: May 22 2014 [id number] ABD/PELV W CONTRAST : RADIOLOGY REPORT DATE OF SERVICE: 05/22/14 HISTORY: Nausea, vomiting, severe right lower quadrant pain. CT OF THE ABDOMEN AND PELVIS WITH [id number] HOURS Axial scans were obtained at 5 mm intervals following administration of oral and intravenous contrast. 100 mL Isovue-300 was utilized for intravenous enhancement. The liver and spleen are normal. The bile ducts are normal in caliber. There has been prior cholecystectomy. The pancreas and adrenal glands are normal. The kidneys are unobstructed with no masses or calculi. The visualized abdominal and pelvic bowel loops are normal. The bladder is unremarkable. The uterus and adnexa are normal. There is no free fluid. The appendix is well-visualized and is normal in appearance without inflammatory change. No hernia defect is present. IMPRESSION: Negative CT abdomen and pelvis. Luis Hanson MD MWIleana/gc05/23/2014 14:17:00 / 05/23/2014 15:40:51 cc:Dr Mcfadden This document has been electronically Signed by: LUIS HANSON On: 2013 10:45P Result Amended on 2014-05-23 at 22:45:37. Previous status was [place]. History of procedures No procedures recorded for [...]
--- OUTSIDE RECORDS SUMMARY | 2018-02-15 07:18 | XMS REPORT | Clinical Summary ---
Author Author Admin, OLEG Organization [facility] Address Unknown Phone Unavailable Allergies, Adverse [...] Unspecified site of ankle sprain Pharyngitis 462 Active Kendell Coronado MD Acute pharyngitis ALLERGIC RHINITIS ICD-477.9 Inactive Errol [...] Ankle sprain ICD-845.00 Inactive Kendell Coronado MD Medication List Medication Instructions Start Date Stop Date Generic Name NDC Status Provider Patient Instruction GUAIFENESIN-CODEINE 100-10 MG/5ML SYRP 5ml every 4 to 6 hours as needed for cough GUAIFENESIN-CODEINE 84531228085 Active Kendell Coronado MD Active ZITHROMAX Z-MARY 250 MG TABS 2 today and then 1 daily for 4 days AZITHROMYCIN 92145944355 Active Kendell Coronado MD Active FLONASE 50 MCG/ACT SUSP 1 spray each nostril am and hs FLUTICASONE PROPIONATE 70143093142 No Longer Active Kendell Coronado MD Active MELOXICAM 15 MG TABS 1 po q day for pain with food MELOXICAM 53667259846 No Longer Active Kendell Coronado MD Active HYDROCODONE-ACETAMINOPHEN 5-325 MG TABS 1-2 q 4-6 hrs prn pain 20 tabs 07/04 HYDROCODONE-ACETAMINOPHEN 76004126074 No Longer Active Daniele Mcfadden DO Active PREDNISONE 20 MG TAB 1 tablet twice daily for 2 days, then 1 tablet once daily for 2 days PREDNISONE 72720142261 No Longer Active Daniele Mcfadden DO Active PREDNISONE 20 MG TAB 1 po bid 2 days, then daily for 2 days 12/27 PREDNISONE 47142580796 No Longer Active Alexander LOPEZ Active AZITHROMYCIN 250 MG TABS 2 po qd x 1 day, then 1 po qd x 4 days AZITHROMYCIN 37370680629 No Longer Active Daniele Mcfadden DO Active MUCINEX MAXIMUM STRENGTH [id number]-[id number] 1 po qd GUAIFENESIN XR12H- TAB 20640220628 No Longer Active Daniele Mcfadden DO Active AZITHROMYCIN 250 MG TABS 2 po qd x 1 day, then 1 po qd x 4 days AZITHROMYCIN 35162317709 No Longer Active Margarito Kelley MD Active PROAIR HFA 108 (90 BASE) MCG/ACT AERS 2 puffs every 4 hours as needed ALBUTEROL SULFATE 82383231923 Active Mckenna Mayo LPN Active E-Z SPACER ERIBERTO use with proair inhalier every 4 times as need. SPACER/ AERO-HOLDING CHAMBERS 14164476732 Active Mckenna Mayo LPN Active IRVING-D ALLERGY & CONGESTION OP87I-GMS 1 po bid FEXOFENADINE -PSEUDOEPHEDRINE ME67A-CYI 37399855733 Active Daniele Mcfadden DO Active MUCINEX MAXIMUM STRENGTH MD97H-HAD 1 po qd MUCINEX MAXIMUM STRENGTH [id number]-EKD GUAIFENESIN OS28N-HCN Inactive PREDNISONE 20 MG TAB 1 po bid 2 days, then daily for 2 days 12/27 PREDNISONE 20 MG TAB 892870 PREDNISONE Inactive PREDNISONE 20 MG TAB 1 tablet twice daily for 2 days, then 1 tablet once daily for 2 days PREDNISONE 20 MG TAB 404708 PREDNISONE Inactive HYDROCODONE-ACETAMINOPHEN 5-325 MG TABS 1-2 q 4-6 hrs prn pain 20 tabs 07/04 HYDROCODONE-ACETAMINOPHEN 5-325 MG TABS 423664 HYDROCODONE- ACETAMINOPHEN Inactive MELOXICAM 15 MG TABS 1 po q day for pain with food MELOXICAM 15 MG TABS 350268 MELOXICAM Inactive FLONASE 50 MCG/ACT SUSP 1 spray each nostril am and hs FLONASE 50 MCG/ACT SUSP 262287 FLUTICASONE PROPIONATE Inactive AZITHROMYCIN 250 MG TABS 2 po qd x 1 day, then 1 po qd x 4 days AZITHROMYCIN 250 MG TABS 4527341 AZITHROMYCIN Inactive AZITHROMYCIN 250 MG TABS 2 po qd x 1 day, then 1 po qd x 4 days AZITHROMYCIN 250 MG TABS 1655902 AZITHROMYCIN Inactive Immunizations Vaccine Administration Date Value Standard Description Human Papillomavirus vaccine (Gardasil) #2, (HPV #2) Gardasil [ CVX62] human papilloma virus vaccine, quadrivalent Seasonal influenza vaccine, injectable, containing preservative, for > 3 years old (Afluria, FluLaval, Fluzone, Fluvirin, Fluarix, Agriflu(>=18 yo)) Fluzone (>3 yrs.) [[id number]] Influenza, seasonal, injectable Human Papillomavirus Vaccine (Gardasil) #1 Given (HPV #1) Gardasil [CVX62] human papilloma virus vaccine, quadrivalent hepatitis A immunization #2 Havrix-Pedi hepatitis A vaccine, unspecified formulation Boostrix (Tetanus toxoid, reduced diphtheria toxoid and acellular pertussis vaccine, adsorbed), booster Boostrix [[id number]] tetanus toxoid, reduced diphtheria toxoid, and acellular [...] Range Description blood pressure, diastolic - 8462-4 61 mm[Hg] BP herndon blood pressure, systolic - 8480-6 107 mm[Hg] BP sys pulse rate E&M - 8867-4 73 /min Heart rate temperature E&M 98.3 [degF] Body temperature weight E&M - 3141-9 168 [lb_av] Weight Measured blood pressure, diastolic - 8462-4 72 mm[Hg] BP herndon blood pressure, systolic - 8480-6 108 mm[Hg] BP sys height E&M - 8302-2 68.75 [in_us] Bdy height pulse rate E&M - 8867-4 84 /min Heart rate temperature E&M 99 [degF] Body temperature weight E&M - 3141-9 166 [lb_av] Weight Measured blood pressure, diastolic - 8462-4 73 mm[Hg] BP herndon blood pressure, systolic - 8480-6 104 mm[Hg] BP sys height E&M - 8302-2 68.75 [in_us] Bdy height pulse rate E&M - 8867-4 94 /min Heart rate temperature E&M 96.7 [degF] Body temperature weight E&M - 3141-9 163 [lb_av] Weight Measured blood pressure, diastolic - 8462-4 74 mm[Hg] BP herndon blood pressure, systolic - 8480-6 131 mm[Hg] BP sys height E&M - 8302-2 68.75 [in_us] Bdy height pulse rate E&M - 8867-4 78 /min Heart rate temperature E&M 98. [degF] Body temperature weight E&M - 3141-9 165 [lb_av] Weight Measured blood pressure, diastolic - 8462-4 77 mm[Hg] BP herndon blood pressure, systolic - 8480-6 123 mm[Hg] BP sys height E&M - 8302-2 68.75 [in_us] Bdy height pulse rate E&M - 8867-4 90 /min Heart rate temperature E&M 98 [degF] Body temperature weight E&M - 3141-9 167 [lb_av] Weight Measured blood pressure, diastolic - 8462-4 75 mm[Hg] BP herndon blood pressure, systolic - 8480-6 113 mm[Hg] BP sys height E&M - 8302-2 68.75 [in_us] Bdy height pulse rate E&M - 8867-4 83 /min Heart rate temperature E&M 97.9 [degF] Body temperature weight E&M - 3141-9 163.25 [lb_av] Weight Measured Diagnostic Results Date Name Value Unit Range Description Lab Report: CBC, Comp. Metabolic Panel, UADIP W/MICRO, AUTO - Chemistry sodium, serum 142 mmol/L 099-900 7508/11/12 potassium, serum 4.1 mmol/L 3.5-5.2 chloride, serum 105 mmol/L 98-107 carbon dioxide, venous blood 30.1 mmol/L 21.0-32.0 blood glucose 95 mg/dL 65-110 urea nitrogen, blood 12 mg/dL 7-18 creatinine, serum 0.70 mg/dL 0.60-1.30 alanine aminotransferase (SGPT), serum 24 U/L 12-78 aspartate aminotransferase (SGOT), serum 12 U/L 15-37 alkaline phosphatase, serum 68 U/L 50-136 calcium, serum 8.7 mg/dL 8.5-10.1 bilirubin, serum, total 0.60 mg/dL 0.00-1.00 protein, total urine random Negative mg/dL Negative RBC, urine, dipstick Negative Negative Lab Report: CBC, Comp. Metabolic Panel, UADIP W/MICRO, AUTO - Hematology leukocyte count, blood 7.3 10^3/MM^3 10*3/mm3 4.6-10.2 erythrocyte (RBC) count 4.50 10^6/MM^3 10*6/mm3 4.04-5.48 hemoglobin, blood 12.9 g/dL 12.0-16.0 hematocrit, blood 39.8 % 36.0-46.0 mean corpuscular volume, RBC 88 fL 80-97 mean corpuscular hemoglobin, RBC 28.5 pg 27.0-31.2 mean corpuscular hemoglobin concentration, RBC 32.3 G/DL % 31.8- 35.4 red blood cell distribution width 13.8 % 11.6-14.8 platelet count 212 10^3/MM^3 10*3/mm3 142-424 Lab Report: CBC, Comp. Metabolic Panel, UADIP W/MICRO, AUTO - Urinalysis urobilinogen, urine, semiquantitative (dipstick) 0.2 Normal leukocyte esterase, urine, by dipstick Negative Negative nitrite, urine, semiquantitative Negative Negative urate crystals, amorphous, urine, semiquantitative Few None seen glucose, urine, semiquantitative Negative Negative ketones, urine, by test strip Negative Negative bilirubin, urine Negative Negative urine color Yellow Colorless;Lightyellow;Straw;Yellow appearance, urine SlCloudy Clear specific gravity, urine 1.025 1.000-1.030 pH, urine, semiquantitative 7.5 5.0-8.5 Encounters Code Encounter Date Provider Facility CPT-84297 Level 3 Est. Patient 12:00:17 CDT Kendell Coronado MD [facility] CPT-29363 Level 3 Est. Patient 12:27:25 CDT Daniele Mcfadden DO [facility] CPT-34041 Level 3 Est. Patient 18:45:11 OPERATIONS TEAM LEADER Daniele Mcfadden [facility] CPT-37932 Level 3 Est. Patient 10:12:24 OPERATIONS TEAM LEADER Daniele Mcfadden [facility] CPT-86407 Level 3 Est. Patient 14:35:11 OPERATIONS TEAM LEADER Daniele Mcfadden [facility] CPT-94692 Level 3 Est. Patient 14:11:04 CDT Daniele Mcfadden [facility] CPT-73974 Level 3 Est. Patient 10:52:13 CDT Alexander LOPEZ [facility] CPT-00532 Level 3 Est. Patient 11:01:08 OPERATIONS TEAM LEADER Daniele Mcfadden [facility] CPT-37101 Level 3 Est. Patient 10:55:35 CDT Daniele Mcfadden [facility] CPT-32405 Level 3 Est. Patient 14:03:08 CDT Daniele Gaetano Mcfadden [facility] CPT-12824 Level 3 Est. Patient 11:26:19 CDT Margarito Kelley MD [facility] CPT-88124 Level 2 Est. Patient 15:32:04 OPERATIONS TEAM LEADER Daniele Mcfadden [facility] CPT-16605 Level 3 Est. Patient 16:01:26 OPERATIONS TEAM LEADER Daniele Mcfadden [facility] CPT-18644 Level 3 Est. Patient 06:37:10 OPERATIONS TEAM LEADER Daniele Gaetano Mcfadden [facility] Procedures Code Procedure Name Date Entry Date Standard Description CPT-OV Office Visit 14:45:12 OPERATIONS TEAM LEADER CPT-81170 Sono abd com inc all organs plus proximal aorta and distal IVC 2012 12:13:02 OPERATIONS TEAM LEADER CPT-60321 Abd compl w upright 15:12:58 OPERATIONS TEAM LEADER CPT-04229 Venipuncture Draw Fee 14:38:32 OPERATIONS TEAM LEADER CPT-21004 Administration single or combination vaccine inc oral 17 :10:04 CDT CPT-10618 Gardasil 17:10:04 CDT CPT-54645 Venipuncture Draw Fee 16:07:54 OPERATIONS TEAM LEADER CPT-39435 Administration 2+ single or combination vaccines inc oral 17:22:02 CDT CPT-93976 Administration single or combination vaccine inc oral 17 :22:02 CDT CPT-08572 Influenza split virus > age 3 17:22:02 CDT CPT-39940 Gardasil 17:22:02 CDT CPT-76622 Administration 2+ single or combination vaccines inc oral 14:38:31 CDT CPT-50505 Administration single or combination vaccine inc oral 14 :38:31 CDT CPT-59121 Meningococcal Conjugate Vacine (Menactra) 14:38:31 CDT CPT-36654 Gardasil 14:38:31 CDT
--- OUTSIDE RECORDS SUMMARY | 2018-02-15 07:18 | XMS REPORT | Clinical Summary ---
Author Author Admin, OLEG Organization [facility] Address Unknown Phone Unavailable Allergies, Adverse [...] MD PhD Acute pharyngitis Sinusitis, acute 461.9 Active Annita Mejia MD PhD Acute sinusitis, unspecified Fatigue 780.79 Active Annita Mejia MD PhD Other malaise and fatigue ALLERGIC RHINITIS ICD-477.9 Inactive Errol Pack MD CONCUSSION WITH LOC OF 30 MINUTES OR LESS ICD-850.11 Inactive Margarito Kelley MD BRONCHITIS, ACUTE ICD-466.0 Inactive Errol Pack MD COSTOCHONDRITIS, ACUTE ICD-733.6 Inactive Errol Pack MD KNEE PAIN, RIGHT ICD-719.46 Inactive Errol Pack MD ATHLETIC PHYSICAL, NORMAL ICD-V70.3 Inactive Errol Pack MD MUSCLE RUPTURE, NONTRAUMATIC ICD-728.83 Inactive Errol Pack MD Abdominal pain ICD-789.00 Inactive Errol aPck MD U R I ICD-465.9 Inactive Daniele Mcfadden DO Abdominal pain ICD-789.00 Inactive Kendell Coronado MD Ankle sprain ICD-845.00 Inactive Kendell Coronado MD Pharyngitis ICD-462 Inactive Annita Mejia MD PhD Medication List Medication Instructions Start Date Stop Date Generic Name NDC Status Provider Patient Instruction MEDROL (MARY) 4 MG TABS 6 pills on day 1, 5 pills on day 2, 4 pills on day 3, 4 pills on day 4, 2 pills on day 5, 1 pill on day 6 METHYLPREDNISOLONE 70325722925 Active Annita Mejia MD PhD Active ZITHROMAX Z-MARY 250 MG TABS 2 today and then 1 daily for 4 days AZITHROMYCIN 33159916904 No Longer Active Annita Mejia MD PhD Active GUAIFENESIN-CODEINE 100-10 MG/5ML SYRP 5ml every 4 to 6 hours as needed for cough GUAIFENESIN-CODEINE 13490281377 No Longer Active Annita Mejia MD PhD Active FLONASE 50 MCG/ACT SUSP 1 spray each nostril am and hs FLUTICASONE PROPIONATE 77603188373 No Longer Active Kendell Coronado MD Active MELOXICAM 15 MG TABS 1 po q day for pain with food MELOXICAM 29951834035 No Longer Active Kendell Coronado MD Active HYDROCODONE-ACETAMINOPHEN 5-325 MG TABS 1-2 q 4-6 hrs prn pain 20 tabs 07/04 HYDROCODONE-ACETAMINOPHEN 32781787598 No Longer Active Daniele Mcfadden DO Active PREDNISONE 20 MG TAB 1 tablet twice daily for 2 days, then 1 tablet once daily for 2 days PREDNISONE 65747044411 No Longer Active Daniele Mcfadden DO Active PREDNISONE 20 MG TAB 1 po bid 2 days, then daily for 2 days 12/27 PREDNISONE 09097448402 No Longer Active Alexander LOPEZ Active AZITHROMYCIN 250 MG TABS 2 po qd x 1 day, then 1 po qd x 4 days AZITHROMYCIN 75890214524 No Longer Active Daniele Mcfadden DO Active MUCINEX MAXIMUM STRENGTH AG03H-GHY 1 po qd GUAIFENESIN XR12H- TAB 33136751480 No Longer Active Daniele Mcfadden DO Active AZITHROMYCIN 250 MG TABS 2 po qd x 1 day, then 1 po qd x 4 days AZITHROMYCIN 15694689645 No Longer Active Margarito Kelley MD Active PROAIR HFA 108 (90 BASE) MCG/ACT AERS 2 puffs every 4 hours as needed ALBUTEROL SULFATE 93772287815 Active Mckenna Cabreraum [employer] Active E-Z SPACER ERIBERTO use with proair inhalier every 4 times as need. SPACER/ AERO-HOLDING CHAMBERS 69382504529 Active Mckenna Mayo [employer] Active IRVING-D ALLERGY & CONGESTION IL48J-ZRU 1 po bid FEXOFENADINE -PSEUDOEPHEDRINE DV15K-STS 14284888025 Active Daniele Mcfadden DO Active MUCINEX MAXIMUM STRENGTH HX93Z-GHR 1 po qd MUCINEX MAXIMUM STRENGTH YF47K-EVT GUAIFENESIN CU31V-SGS Inactive PREDNISONE 20 MG TAB 1 po bid 2 days, then daily for 2 days 12/27 PREDNISONE 20 MG TAB 530503 PREDNISONE Inactive PREDNISONE 20 MG TAB 1 tablet twice daily for 2 days, then 1 tablet once daily for 2 days PREDNISONE 20 MG TAB 396902 PREDNISONE Inactive HYDROCODONE-ACETAMINOPHEN 5-325 MG TABS 1-2 q 4-6 hrs prn pain 20 tabs 07/04 HYDROCODONE-ACETAMINOPHEN 5-325 MG TABS 153062 HYDROCODONE- ACETAMINOPHEN Inactive MELOXICAM 15 MG TABS 1 po q day for pain with food MELOXICAM 15 MG TABS 008078 MELOXICAM Inactive FLONASE 50 MCG/ACT SUSP 1 spray each nostril am and hs FLONASE 50 MCG/ACT SUSP 627822 FLUTICASONE PROPIONATE Inactive GUAIFENESIN-CODEINE 100-10 MG/5ML SYRP 5ml every 4 to 6 hours as needed for cough GUAIFENESIN-CODEINE 100-10 MG/5ML SYRP 675721 GUAIFENESIN-CODEINE Inactive ZITHROMAX Z-MARY 250 MG TABS 2 today and then 1 daily for 4 days ZITHROMAX Z-MARY 250 MG TABS 0846933 AZITHROMYCIN Inactive AZITHROMYCIN 250 MG TABS 2 po qd x 1 day, then 1 po qd x 4 days AZITHROMYCIN 250 MG TABS 8692237 AZITHROMYCIN Inactive AZITHROMYCIN 250 MG TABS 2 po qd x 1 day, then 1 po qd x 4 days AZITHROMYCIN 250 MG TABS 1604081 AZITHROMYCIN Inactive Immunizations Vaccine Administration Date Value Standard Description Human Papillomavirus vaccine (Gardasil) #2, (HPV #2) Gardasil [ CVX62] human papilloma virus vaccine, quadrivalent Seasonal influenza vaccine, injectable, containing preservative, for > 3 years old (Afluria, FluLaval, Fluzone, Fluvirin, Fluarix, Agriflu(>=18 yo)) Fluzone (>3 yrs.) [[id number]] Influenza, seasonal, injectable Human Papillomavirus Vaccine (Gardasil) #1 Given (HPV #1) Gardasil [CVX62] human papilloma virus vaccine, quadrivalent hepatitis A immunization #2 Havrix-Pedi hepatitis A vaccine, unspecified formulation Boostrix (Tetanus toxoid, reduced diphtheria toxoid and acellular pertussis vaccine, adsorbed), booster Boostrix [[id number]] tetanus toxoid, reduced diphtheria toxoid, and acellular [...] Range Description blood pressure, diastolic - 8462-4 74 mm[Hg] BP herndon blood pressure, systolic - 8480-6 108 mm[Hg] BP sys pulse rate E&M - 8867-4 74 /min Heart rate temperature E&M 98 [degF] Body temperature weight E&M - 3141-9 170 [lb_av] Weight Measured blood pressure, diastolic - 8462-4 61 mm[Hg] [...] E&M - 3141-9 167 [lb_av] Weight Measured Diagnostic Results Date Name Value Unit Range Description Lab Report: CBC, Comp. Metabolic Panel, UADIP W/MICRO, AUTO - Chemistry sodium, serum 142 mmol/L 515-384 8543/11/12 potassium, serum 4.1 mmol/L 3.5-5.2 chloride, serum [...] 5.0-8.5 Encounters Code Encounter Date Provider Facility CPT-15220 Level 3 Est. Patient 11:08:45 CDT Annita Mejia MD PhD [facility]-19632 Level 3 Est. Patient 12:00:17 CDT Kendell Coronado MD [facility]-40704 Level 3 Est. Patient 12:27:25 CDT Daniele Mcfadden [facility] CPT-43997 Level 3 Est. Patient 18:45:11 FASHION CONSULTANT SELLING Daniele Mcfadden [facility] CPT-12145 Level 3 Est. Patient 10:12:24 FASHION CONSULTANT SELLING Daniele Mcfadden [facility] CPT-71188 Level 3 Est. Patient 14:35:11 FASHION CONSULTANT SELLING Daniele Mcfadden [facility] CPT-65684 Level 3 Est. Patient 14:11:04 CDT Daniele Mcfadden [facility] CPT-39132 Level 3 Est. Patient 10:52:13 CDT Alexander LOPZE [facility] CPT-38908 Level 3 Est. Patient 11:01:08 FASHION CONSULTANT SELLING Daniele Mcfadden [facility] CPT-11095 Level 3 Est. Patient 10:55:35 CDT Daniele Mcfadden [facility]-67026 Level 3 Est. Patient 14:03:08 CDT Daniele Mcfadden [facility] CPT-26963 Level 3 Est. Patient 11:26:19 CDT Margarito Kelley MD [facility] CPT-31628 Level 2 Est. Patient 15:32:04 FASHION CONSULTANT SELLING Daniele Gaetano Mcfadden [facility] CPT-09803 Level 3 Est. Patient 16:01:26 FASHION CONSULTANT SELLING Daniele Salter Bogdan [facility] CPT-15073 Level 3 Est. Patient 06:37:10 FASHION CONSULTANT SELLING Daniele Mcfadden [facility] Procedures Code Procedure Name Date Entry Date Standard Description CPT-OV Office Visit 14:45:12 FASHION CONSULTANT SELLING CPT-15268 Sono abd com inc all organs plus proximal aorta and distal IVC 2012 12:13:02 FASHION CONSULTANT SELLING CPT-03200 Abd compl w upright 15:12:58 FASHION CONSULTANT SELLING CPT-14667 Venipuncture Draw Fee 14:38:32 FASHION CONSULTANT SELLING CPT-02439 Administration single or combination vaccine inc oral 17 :10:04 CDT CPT-95197 Gardasil 17:10:04 CDT CPT-12719 Venipuncture Draw Fee 16:07:54 FASHION CONSULTANT SELLING CPT-57405 Administration 2+ single or combination vaccines inc oral 17:22:02 CDT CPT-60631 Administration single or combination vaccine inc oral 17 :22:02 CDT CPT-44822 Influenza split virus > age 3 17:22:02 CDT CPT-27471 Gardasil 17:22:02 CDT CPT-62232 Administration 2+ single or combination vaccines inc oral 14:38:31 CDT CPT-75459 Administration single or combination vaccine inc oral 14 :38:31 CDT CPT-21528 Meningococcal Conjugate Vacine (Menactra) 14:38:31 CDT [place]-32126 Gardasil 14:38:31 CDT
--- OUTSIDE RECORDS SUMMARY | 2018-02-15 07:19 | XMS REPORT | Clinical Summary ---
Author Author Admin, OLEG Organization [facility] Address Unknown Phone Unavailable Allergies, Adverse [...] 5, 1 pill on day 6 METHYLPREDNISOLONE [id number] Active Annita Mejia MD PhD Active ZITHROMAX Z-MARY 250 MG TABS 2 today and then 1 daily for 4 days AZITHROMYCIN 71701037102 No Longer Active Annita Mejia MD PhD Active GUAIFENESIN-CODEINE 100-10 MG/5ML SYRP 5ml every 4 to 6 hours as needed for cough GUAIFENESIN-CODEINE 98249522264 No Longer Active Annita Mejia MD PhD Active FLONASE 50 MCG/ACT SUSP 1 spray each nostril am and hs FLUTICASONE PROPIONATE 84034251328 No Longer Active Kendell Coronado MD Active MELOXICAM 15 MG TABS 1 po q day for pain with food MELOXICAM 96776364736 No Longer Active Kendell Coronado MD Active HYDROCODONE-ACETAMINOPHEN 5-325 MG TABS 1-2 q 4-6 hrs prn pain 20 tabs 07/04 HYDROCODONE-ACETAMINOPHEN 49445424394 No Longer Active Daniele Mcfadden DO Active PREDNISONE 20 MG TAB 1 tablet twice daily for 2 days, then 1 tablet once daily for 2 days PREDNISONE 60050876043 No Longer Active Daniele Mcfadden DO Active PREDNISONE 20 MG TAB 1 po bid 2 days, then daily for 2 days 12/27 PREDNISONE 37111423997 No Longer Active Alexander LOPEZ Active AZITHROMYCIN 250 MG TABS 2 po qd x 1 day, then 1 po qd x 4 days AZITHROMYCIN 91722307234 No Longer Active Daniele Mcfadden DO Active MUCINEX MAXIMUM STRENGTH [id number] 1 po qd GUAIFENESIN XR12H- TAB 25830812866 No Longer Active Daniele Mcfadden DO Active AZITHROMYCIN 250 MG TABS 2 po qd x 1 day, then 1 po qd x 4 days AZITHROMYCIN 43172432709 No Longer Active Margarito Kelley MD Active PROAIR HFA 108 (90 BASE) MCG/ACT AERS 2 puffs every 4 hours as needed ALBUTEROL SULFATE 23417061140 Active Mckenna Cabreraum RN [employer] Active E-Z SPACER ERIBERTO use with proair inhalier every 4 times as need. SPACER/ AERO-HOLDING CHAMBERS 62805222416 Active Mckenna Mayo RN [employer] [employer] Active IRVING-D ALLERGY & CONGESTION [id number] 1 po bid FEXOFENADINE -PSEUDOEPHEDRINE [id number] 45930392305 Active Daniele Mcfadden DO Active MUCINEX MAXIMUM STRENGTH [id number] 1 po qd MUCINEX MAXIMUM STRENGTH [id number] GUAIFENESIN [id number] Inactive PREDNISONE 20 MG TAB 1 po bid 2 days, then daily for 2 days 12/27 PREDNISONE 20 MG TAB 039527 PREDNISONE Inactive PREDNISONE 20 MG TAB 1 tablet twice daily for 2 days, then 1 tablet once daily for 2 days PREDNISONE 20 MG TAB 324368 PREDNISONE Inactive HYDROCODONE-ACETAMINOPHEN 5-325 MG TABS 1-2 q 4-6 hrs prn pain 20 tabs 07/04 HYDROCODONE-ACETAMINOPHEN 5-325 MG TABS 384876 HYDROCODONE- ACETAMINOPHEN Inactive MELOXICAM 15 MG TABS 1 po q day for pain with food MELOXICAM 15 MG TABS 591437 MELOXICAM Inactive FLONASE 50 MCG/ACT SUSP 1 spray each nostril am and hs FLONASE 50 MCG/ACT SUSP 479077 FLUTICASONE PROPIONATE Inactive GUAIFENESIN-CODEINE 100-10 MG/5ML SYRP 5ml every 4 to 6 hours as needed for cough GUAIFENESIN-CODEINE 100-10 MG/5ML SYRP 891491 GUAIFENESIN-CODEINE Inactive ZITHROMAX Z-MARY 250 MG TABS 2 today and then 1 daily for 4 days ZITHROMAX Z-MARY 250 MG TABS 1338638 AZITHROMYCIN Inactive AZITHROMYCIN 250 MG TABS 2 po qd x 1 day, then 1 po qd x 4 days AZITHROMYCIN 250 MG TABS 6307447 AZITHROMYCIN Inactive AZITHROMYCIN 250 MG TABS 2 po qd x 1 day, then 1 po qd x 4 days AZITHROMYCIN 250 MG TABS 1377957 AZITHROMYCIN Inactive Immunizations Vaccine Administration Date Value Standard Description Human Papillomavirus vaccine (Gardasil) #2, (HPV #2) Gardasil [ [id number]] human papilloma virus vaccine, quadrivalent Seasonal influenza vaccine, injectable, containing preservative, for > 3 years old (Afluria, FluLaval, Fluzone, Fluvirin, Fluarix, Agriflu(>=18 yo)) Fluzone (>3 yrs.) [[id number]] Influenza, seasonal, injectable Human Papillomavirus Vaccine (Gardasil) #1 Given (HPV #1) Gardasil [CVX62] human papilloma virus vaccine, quadrivalent hepatitis A immunization #2 Havrix-Pedi hepatitis A vaccine, unspecified formulation Boostrix (Tetanus toxoid, reduced diphtheria toxoid and acellular pertussis vaccine, adsorbed), booster Boostrix [[id number]] tetanus toxoid, reduced diphtheria toxoid, and acellular [...] AUTO - Chemistry sodium, serum 142 mmol/L 135-638 6493/11/12 potassium, serum 4.1 mmol/L 3.5-5.2 chloride, serum [...] Metabolic Panel, UADIP W/MICRO, AUTO - Hematology mean corpuscular volume, RBC 88 fL 80-97 hematocrit, blood 39.8 % 36.0-46.0 hemoglobin, blood 12.9 g/dL 12.0-16.0 erythrocyte (RBC) count 4.50 10^6/MM^3 10*6/mm3 4.04-5.48 leukocyte count, blood 7.3 10^3/MM^3 10*3/mm3 4.6-10.2 mean corpuscular hemoglobin, RBC 28.5 pg 27.0-31.2 mean corpuscular hemoglobin concentration, RBC 32.3 G/DL % 31.8- 35.4 red blood cell distribution width 13.8 % 11.6-14.8 platelet count 212 10^3/MM^3 10*3/mm3 142-424 Lab Report: CBC, Comp. Metabolic Panel, UADIP W/MICRO, AUTO - Urinalysis glucose, urine, semiquantitative Negative Negative ketones, urine, by test strip Negative Negative bilirubin, urine Negative Negative urobilinogen, urine, semiquantitative (dipstick) 0.2 Normal leukocyte esterase, urine, by dipstick Negative Negative nitrite, urine, semiquantitative Negative Negative urate crystals, amorphous, urine, semiquantitative Few None seen urine color Yellow Colorless;Lightyellow;Straw;Yellow appearance, urine SlCloudy Clear specific gravity, urine 1.025 1.000-1.030 pH, urine, semiquantitative 7.5 5.0-8.5 Encounters Code Encounter Date Provider Facility CPT-61383 Level 3 Est. Patient 11:08:45 CDT Annita Mejia MD PhD [facility] CPT-85085 Level 3 Est. Patient 12:00:17 CDT Kendell Coronado MD [facility] CPT-36700 Level 3 Est. Patient 12:27:25 CDT Daniele Mcfadden [facility] CPT-25680 Level 3 Est. Patient 18:45:11 SIGN CARPENTER Daniele Mcfadden [facility] CPT-64765 Level 3 Est. Patient 10:12:24 SIGN CARPENTER Daniele Mcfadden [facility] CPT-29965 Level 3 Est. Patient 14:35:11 SIGN CARPENTER Daniele Mcfadden [facility] CPT-98381 Level 3 Est. Patient 14:11:04 CDT Daniele Mcfadden [facility] CPT-77011 Level 3 Est. Patient 10:52:13 CDT Alexander LOPEZ [facility] CPT-52073 Level 3 Est. Patient 11:01:08 SIGN CARPENTER Daniele Mcfadden [facility] CPT-37643 Level 3 Est. Patient 10:55:35 CDT Daniele Mcfadden [facility] CPT-23659 Level 3 Est. Patient 14:03:08 CDT Daniele Mcfadden [facility] CPT-71894 Level 3 Est. Patient 11:26:19 CDT Margarito Kelley MD [facility] CPT-28475 Level 2 Est. Patient 15:32:04 SIGN CARPENTER Daniele Gaetano Mcfadden [facility] CPT-45453 Level 3 Est. Patient 16:01:26 SIGN CARPENTER Daniele Salter Bogdan [facility] CPT-89677 Level 3 Est. Patient 06:37:10 SIGN CARPENTER Daniele Mcfadden [facility] Procedures Code Procedure Name Date Entry Date Standard Description CPT-OV Office Visit 14:45:12 SIGN CARPENTER CPT-71920 Sono abd com inc all organs plus proximal aorta and distal IVC 2012 12:13:02 SIGN CARPENTER CPT-74089 Abd compl w upright 15:12:58 SIGN CARPENTER CPT-69583 Venipuncture Draw Fee 14:38:32 SIGN CARPENTER CPT-95620 Administration single or combination vaccine inc oral 17 :10:04 CDT CPT-61522 Gardasil 17:10:04 CDT CPT-13752 Venipuncture Draw Fee 16:07:54 SIGN CARPENTER CPT-91881 Administration 2+ single or combination vaccines inc oral 17:22:02 CDT CPT-25207 Administration single or combination vaccine inc oral 17 :22:02 CDT CPT-61158 Influenza split virus > age 3 17:22:02 CDT CPT-00534 Gardasil 17:22:02 CDT CPT-72151 Administration 2+ single or combination vaccines inc oral 14:38:31 CDT CPT-70291 Administration single or combination vaccine inc oral 14 :38:31 CDT CPT-50560 Meningococcal Conjugate Vacine (Menactra) 14:38:31 CDT [facility]-81035 Gardasil 14:38:31 CDT
--- OUTSIDE RECORDS SUMMARY | 2018-02-15 07:20 | XMS REPORT | Clinical Summary ---
Author Author Admin, OLEG Organization [facility] Address Unknown Phone Unavailable Allergies, Adverse [...] 6 hours as needed for cough GUAIFENESIN-CODEINE 33169181794 Active Kendell Coronado MD Active ZITHROMAX Z-MARY 250 MG TABS 2 today and then 1 daily for 4 days AZITHROMYCIN 10661378033 Active Kendell Coronado MD Active FLONASE 50 MCG/ACT SUSP 1 spray each nostril am and hs FLUTICASONE PROPIONATE 81546941081 No Longer Active Kendell Coronado MD Active MELOXICAM 15 MG TABS 1 po q day for pain with food MELOXICAM 41068866773 No Longer Active Kendell Coronado MD Active HYDROCODONE-ACETAMINOPHEN 5-325 MG TABS 1-2 q 4-6 hrs prn pain 20 tabs 07/04 HYDROCODONE-ACETAMINOPHEN 18802157999 No Longer Active Daniele Mcfadden DO Active PREDNISONE 20 MG TAB 1 tablet twice daily for 2 days, then 1 tablet once daily for 2 days PREDNISONE 83757586635 No Longer Active Daniele Mcfadden DO Active PREDNISONE 20 MG TAB 1 po bid 2 days, then daily for 2 days 12/27 PREDNISONE 82200832319 No Longer Active Alexander LOPEZ Active AZITHROMYCIN 250 MG TABS 2 po qd x 1 day, then 1 po qd x 4 days AZITHROMYCIN 37417118649 No Longer Active Daniele Mcfadden DO Active MUCINEX MAXIMUM STRENGTH [id number] 1 po qd GUAIFENESIN XR12H- TAB 90056761848 No Longer Active Daniele Mcfadden DO Active AZITHROMYCIN 250 MG TABS 2 po qd x 1 day, then 1 po qd x 4 days AZITHROMYCIN 39345525770 No Longer Active Margarito Kelley MD Active PROAIR HFA 108 (90 BASE) MCG/ACT AERS 2 puffs every 4 hours as needed ALBUTEROL SULFATE 87558149307 Active Mckenna Mayo LPN Active E-Z SPACER ERIBERTO use with proair inhalier every 4 times as need. SPACER/ AERO-HOLDING CHAMBERS 98738426816 Active Mckenna Mayo LPN Active IRVING-D ALLERGY & CONGESTION [id number] 1 po bid FEXOFENADINE -PSEUDOEPHEDRINE [id number]-ELW 33765831778 Active Daniele Mcfadden DO Active MUCINEX MAXIMUM STRENGTH [id number]-OJI 1 po qd MUCINEX MAXIMUM STRENGTH [id number] GUAIFENESIN OC02I-RXZ Inactive PREDNISONE 20 MG TAB 1 po bid 2 days, then daily for 2 days 12/27 PREDNISONE 20 MG TAB 854445 PREDNISONE Inactive PREDNISONE 20 MG TAB 1 tablet twice daily for 2 days, then 1 tablet once daily for 2 days PREDNISONE 20 MG TAB 253234 PREDNISONE Inactive HYDROCODONE-ACETAMINOPHEN 5-325 MG TABS 1-2 q 4-6 hrs prn pain 20 tabs 07/04 HYDROCODONE-ACETAMINOPHEN 5-325 MG TABS 160990 HYDROCODONE- ACETAMINOPHEN Inactive MELOXICAM 15 MG TABS 1 po q day for pain with food MELOXICAM 15 MG TABS 276908 MELOXICAM Inactive FLONASE 50 MCG/ACT SUSP 1 spray each nostril am and hs FLONASE 50 MCG/ACT SUSP 454044 FLUTICASONE PROPIONATE Inactive AZITHROMYCIN 250 MG TABS 2 po qd x 1 day, then 1 po qd x 4 days AZITHROMYCIN 250 MG TABS 9808283 AZITHROMYCIN Inactive AZITHROMYCIN 250 MG TABS 2 po qd x 1 day, then 1 po qd x 4 days AZITHROMYCIN 250 MG TABS 3256066 AZITHROMYCIN Inactive Immunizations Vaccine Administration Date Value Standard Description Human Papillomavirus vaccine (Gardasil) #2, (HPV #2) Gardasil [ CVX62] human papilloma virus vaccine, quadrivalent Seasonal influenza vaccine, injectable, containing preservative, for > 3 years old (Afluria, FluLaval, Fluzone, Fluvirin, Fluarix, Agriflu(>=18 yo)) Fluzone (>3 yrs.) [[id number]] Influenza, seasonal, injectable Human Papillomavirus Vaccine (Gardasil) #1 Given (HPV #1) Gardasil [CVX62] human papilloma virus vaccine, quadrivalent hepatitis A immunization #2 Havrix-Pedi hepatitis A vaccine, unspecified formulation Boostrix (Tetanus toxoid, reduced diphtheria toxoid and acellular pertussis vaccine, adsorbed), booster Boostrix [XEO513] tetanus toxoid, reduced diphtheria toxoid, and acellular [...] AUTO - Chemistry sodium, serum 142 mmol/L 702-606 8594/11/12 potassium, serum 4.1 mmol/L 3.5-5.2 chloride, serum [...] 5.0-8.5 Encounters Code Encounter Date Provider Facility CPT-89973 Level 3 Est. Patient 12:00:17 CDT Kendell Coronado MD [facility] CPT-80972 Level 3 Est. Patient 12:27:25 CDT Daniele Mcfadden DO [facility] CPT-26214 Level 3 Est. Patient 18:45:11 WORK[employer] COMPENSATION COMMISSIONER Daniele Mcfadden [facility] CPT-32703 Level 3 Est. Patient 10:12:24 WORKERS' COMPENSATION COMMISSIONER Daniele Mcfadden [facility] CPT-91346 Level 3 Est. Patient 14:35:11 WORK[employer] COMPENSATION COMMISSIONER Daniele Mcfadden [facility] CPT-29411 Level 3 Est. Patient 14:11:04 CDT Daniele Mcfadden [facility] CPT-38842 Level 3 Est. Patient 10:52:13 CDT Alexander LOPEZ [facility] CPT-47399 Level 3 Est. Patient 11:01:08 WORK[employer]' COMPENSATION COMMISSIONER Daniele Mcfadden [facility] CPT-98505 Level 3 Est. Patient 10:55:35 CDT Daniele Mcfadden [facility] CPT-63799 Level 3 Est. Patient 14:03:08 CDT Daniele Gaetano Mcfadden [facility] CPT-22492 Level 3 Est. Patient 11:26:19 CDT Margarito Kelley MD [facility] CPT-24934 Level 2 Est. Patient 15:32:04 WORK[employer] COMPENSATION COMMISSIONER Daniele Mcfadden [facility] CPT-47816 Level 3 Est. Patient 16:01:26 WORKERS' COMPENSATION COMMISSIONER Daniele Mcfadden [facility] CPT-99216 Level 3 Est. Patient 06:37:10 WORK[employer] COMPENSATION COMMISSIONER Daniele Gaetano Mcfadden [facility] Procedures Code Procedure Name Date Entry Date Standard Description CPT-OV Office Visit 14:45:12 WORK[employer] COMMISSIONER CPT-93029 Sono abd com inc all organs plus proximal aorta and distal IVC 2012 12:13:02 WORK[employer] COMP[employer]ATION COMMISSIONER CPT-75160 Abd compl w upright 15:12:58 WORK[employer] COMP[employer]ATION COMMISSIONER CPT-74780 Venipuncture Draw Fee 14:38:32 WORK[employer] COMMISSIONER CPT-99030 Administration single or combination vaccine inc oral 17 :10:04 CDT CPT-71997 Gardasil 17:10:04 CDT CPT-69744 Venipuncture Draw Fee 16:07:54 WORK[employer]ATION COMMISSIONER CPT-40062 Administration 2+ single or combination vaccines inc oral 17:22:02 CDT CPT-29417 Administration single or combination vaccine inc oral 17 :22:02 CDT CPT-87612 Influenza split virus > age 3 17:22:02 CDT CPT-68614 Gardasil 17:22:02 CDT CPT-65029 Administration 2+ single or combination vaccines inc oral 14:38:31 CDT CPT-64081 Administration single or combination vaccine inc oral 14 :38:31 CDT CPT-70788 Meningococcal Conjugate Vacine (Menactra) 14:38:31 CDT CPT-50442 Gardasil 14:38:31 CDT
--- OUTSIDE RECORDS SUMMARY | 2018-02-15 07:20 | XMS REPORT | Clinical Summary ---
Author Author Admin, OLEG Organization [facility] Address Unknown Phone Unavailable Allergies, Adverse [...] Mejia MD PhD Other malaise and fatigue Vaccination against influenza V04.81 Active Radha Acharya LPN Need for prophylactic vaccination and inoculation against influenza Flank pain, right 789.09 Active Daniele Mcfadden DO Abdominal pain, other specified site; multiple sites ALLERGIC RHINITIS ICD-477.9 Inactive Errol Pack MD [...] 5, 1 pill on day 6 METHYLPREDNISOLONE [id number] No Longer Active Annita Mejia MD PhD Active ZITHROMAX Z-MARY 250 MG TABS 2 today and then 1 daily for 4 days AZITHROMYCIN [id number] No Longer Active Annita Mejia MD PhD Active GUAIFENESIN-CODEINE 100-10 MG/5ML SYRP 5ml every 4 to 6 hours as needed for cough GUAIFENESIN-CODEINE [id number] No Longer Active Annita Mejia MD PhD Active FLONASE 50 MCG/ACT SUSP 1 spray each nostril am and hs FLUTICASONE PROPIONATE 01316833721 No Longer Active Kendell Coronado MD Active MELOXICAM 15 MG TABS 1 po q day for pain with food MELOXICAM 74148778294 No Longer Active Kendell Coronado MD Active HYDROCODONE-ACETAMINOPHEN 5-325 MG TABS 1-2 q 4-6 hrs prn pain 20 tabs 07/04 HYDROCODONE-ACETAMINOPHEN 28898175970 No Longer Active Daniele Mcfadden DO Active PREDNISONE 20 MG TAB 1 tablet twice daily for 2 days, then 1 tablet once daily for 2 days PREDNISONE 85156867480 No Longer Active Daniele Mcfadden DO Active PREDNISONE 20 MG TAB 1 po bid 2 days, then daily for 2 days 12/27 PREDNISONE [id number] No Longer Active Alexander LOPEZ Active AZITHROMYCIN 250 MG TABS 2 po qd x 1 day, then 1 po qd x 4 days AZITHROMYCIN 03105447348 No Longer Active Daniele Mcfadden DO Active MUCINEX MAXIMUM STRENGTH [id number] 1 po qd GUAIFENESIN XR12H- TAB 43805394801 No Longer Active Daniele Mcfadden DO Active AZITHROMYCIN 250 MG TABS 2 po qd x 1 day, then 1 po qd x 4 days AZITHROMYCIN 86065677792 No Longer Active Margarito Kelley MD Active PROAIR HFA 108 (90 BASE) MCG/ACT AERS 2 puffs every 4 hours as needed ALBUTEROL SULFATE 50477603818 Active Mckenna Cabreraum [employer] Active E-Z SPACER ERIBERTO use with proair inhalier every 4 times as need. 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 IRVING-D ALLERGY & CONGESTION [id number]-SIT 1 po bid FEXOFENADINE -PSEUDOEPHEDRINE FL70I-OZE [id number] Active Daniele Mcfadden DO Active MUCINEX MAXIMUM STRENGTH FI23T-NYN 1 po qd MUCINEX MAXIMUM STRENGTH [id number]-PTQ GUAIFENESIN ZR68C-NDT Inactive PREDNISONE 20 MG TAB 1 po bid 2 days, then daily for 2 days 12/27 PREDNISONE 20 MG TAB 839566 PREDNISONE Inactive PREDNISONE 20 MG TAB 1 tablet twice daily for 2 days, then 1 tablet once daily for 2 days PREDNISONE 20 MG TAB 533806 PREDNISONE Inactive HYDROCODONE-ACETAMINOPHEN 5-325 MG TABS 1-2 q 4-6 hrs prn pain 20 tabs 07/04 HYDROCODONE-ACETAMINOPHEN 5-325 MG TABS 412835 HYDROCODONE- ACETAMINOPHEN Inactive MELOXICAM 15 MG TABS 1 po q day for pain with food MELOXICAM 15 MG TABS 928789 MELOXICAM Inactive FLONASE 50 MCG/ACT SUSP 1 spray each nostril am and hs FLONASE 50 MCG/ACT SUSP 558938 FLUTICASONE PROPIONATE Inactive GUAIFENESIN-CODEINE 100-10 MG/5ML SYRP 5ml every 4 to 6 hours as needed for cough GUAIFENESIN-CODEINE 100-10 MG/5ML SYRP 611564 GUAIFENESIN-CODEINE Inactive ZITHROMAX Z-MARY 250 MG TABS 2 today and then 1 daily for 4 days ZITHROMAX Z-MARY 250 MG TABS 8187503 AZITHROMYCIN Inactive AZITHROMYCIN 250 MG TABS 2 po qd x 1 day, then 1 po qd x 4 days AZITHROMYCIN 250 MG TABS 3727337 AZITHROMYCIN Inactive AZITHROMYCIN 250 MG TABS 2 po qd x 1 day, then 1 po qd x 4 days AZITHROMYCIN 250 MG TABS 4575720 AZITHROMYCIN Inactive MEDROL (MARY) 4 MG TABS 6 pills on day 1, 5 pills on day 2, 4 pills on day 3, 4 pills on day 4, 2 pills on day 5, 1 pill on day 6 MEDROL (MARY) 4 MG TABS METHYLPREDNISOLONE Inactive Immunizations Vaccine Administration Date Value Standard Description Human Papillomavirus vaccine (Gardasil) #2, (HPV #2) Gardasil [ CVX62] human papilloma virus vaccine, quadrivalent Seasonal influenza vaccine, injectable, containing preservative, for > 3 years old (Afluria, FluLaval, Fluzone, Fluvirin, Fluarix, Agriflu(>=18 yo)) Fluzone (>3 yrs.) [XCF049] Influenza, seasonal, injectable Human Papillomavirus Vaccine (Gardasil) #1 Given (HPV #1) Gardasil [CVX62] human papilloma virus vaccine, quadrivalent hepatitis A immunization #2 Havrix-Pedi hepatitis A vaccine, unspecified formulation Combined Cqhlkmuzar-Yjliphg-wlrvxxxsr Pertussis (dTpa) Vaccine - Booster 12/02 Boostrix [UCF337] tetanus toxoid, reduced diphtheria toxoid, and acellular pertussis vaccine, adsorbed hepatitis A immunization #1 Havrix-Pedi hepatitis A vaccine, unspecified formulation DPT immunization #5 DTaP oral polio vaccine (OPV) #4 IPV poliovirus vaccine, unspecified formulation MMR virus immunization #2 MMR DPT immunization #4 DTaP Hemophilus influenza B immunization #4 Historical Haemophilus influenzae type b vaccine, conjugate unspecified formulation oral polio vaccine (OPV) #3 IPV poliovirus vaccine, unspecified formulation MMR virus immunization #1 MMR hepatitis B vaccine [...] vaccine, unspecified formulation hepatitis B vaccine #2 Historical hepatitis B vaccine, unspecified formulation DPT immunization #1 DTaP Hemophilus influenza B immunization #1 Historical Haemophilus influenzae type b vaccine, conjugate unspecified formulation oral polio vaccine (OPV) #1 IPV poliovirus vaccine, unspecified formulation hepatitis B vaccine #1 Historical hepatitis B vaccine, unspecified formulation Vital Signs Date Name Value Unit Range Description blood pressure, diastolic 76 mm[Hg] BP herndon blood pressure, systolic 114 mm[Hg] BP sys pulse rate E&M 72 /min Heart rate temperature E&M 98.4 [degF] Body temperature weight E&M 176 [lb_av] Weight Measured blood pressure, diastolic 74 mm[Hg] BP herndon blood pressure, systolic 108 mm[Hg] BP sys pulse rate E&M 74 /min Heart rate temperature E&M 98 [degF] Body temperature weight E&M 170 [lb_av] Weight Measured blood pressure, diastolic 61 mm[Hg] BP herndon blood pressure, systolic 107 mm[Hg] BP sys pulse rate E&M 73 /min Heart rate temperature E&M 98.3 [degF] Body temperature weight E&M 168 [lb_av] Weight Measured blood pressure, diastolic 72 mm[Hg] BP herndon blood pressure, systolic 108 mm[Hg] BP sys height E&M 68.75 [in_us] Bdy height pulse rate E&M 84 /min Heart rate temperature E&M 99 [degF] Body temperature weight E&M 166 [lb_av] Weight Measured blood pressure, diastolic 73 mm[Hg] BP herndon blood pressure, systolic 104 mm[Hg] BP sys height E&M 68.75 [in_us] Bdy height pulse rate E&M 94 /min Heart rate temperature E&M 96.7 [degF] Body temperature weight E&M 163 [lb_av] Weight Measured blood pressure, diastolic 74 mm[Hg] BP herndon blood pressure, systolic 131 mm[Hg] BP sys height E&M 68.75 [in_us] Bdy height pulse rate E&M 78 /min Heart rate temperature E&M 98. [degF] Body temperature weight E&M 165 [lb_av] Weight Measured blood pressure, diastolic 77 mm[Hg] BP herndon blood pressure, systolic 123 mm[Hg] BP sys height E&M 68.75 [in_us] Bdy height pulse rate E&M 90 /min Heart rate temperature E&M 98 [degF] Body temperature weight E&M 167 [lb_av] Weight Measured Diagnostic Results Date Name Value Unit Range Description Immunizations: TB Skin Test - Challenge tests PPD results in mm 0 mm Lab Report: CBC W/DIFF, Comp. Metabolic Panel, UADIP W/MICRO, AUTO - Chemistry sodium, serum 136 mmol/L 367-841 1985/10/31 potassium, serum 4.4 mmol/L 3.5-5.2 chloride, serum 102 mmol/L 98-107 carbon dioxide, venous blood 29.2 mmol/L 21.0-32.0 blood glucose 88 mg/dL 65-110 urea nitrogen, blood 9 mg/dL 7-18 creatinine, serum 0.80 mg/dL 0.60-1.30 alanine aminotransferase (SGPT), serum 13 U/L 12-78 aspartate aminotransferase (SGOT), serum 14 U/L 15-37 alkaline phosphatase, serum 61 U/L 50-130 calcium, serum 9.3 mg/dL 8.5-10.1 bilirubin, serum, total 0.60 mg/dL 0.00-1.00 protein, total urine random Negative mg/dL Negative RBC, urine, dipstick Negative Negative Lab Report: CBC W/DIFF, Comp. Metabolic Panel, UADIP W/MICRO, AUTO - Hematology lymphocytes as percent of blood leukocytes 37.4 % 20.5-51.1 erythrocyte (RBC) count 4.66 10^6/MM^3 10*6/mm3 4.04-5.48 hemoglobin, blood 13.6 g/dL 12.0-16.0 hematocrit, blood 40.9 % 36.0-46.0 mean corpuscular volume, RBC 88 fL 80-97 mean corpuscular hemoglobin, RBC 29.1 pg 27.0-31.2 mean corpuscular hemoglobin concentration, RBC 33.1 G/DL % 31.8- 35.4 red blood cell distribution width 13.3 % 11.6-14.8 platelet count 199 10^3/MM^3 10*3/mm3 969-427 0720/10/31 leukocyte count, blood 7.0 10^3/MM^3 10*3/mm3 4.6-10.2 neutrophils as percent of blood leukocytes 55.5 % 42.2-75.2 monocytes as percent of blood leukocytes 5.3 % 1.7-9.3 Lab Report: CBC W/DIFF, Comp. Metabolic Panel, UADIP W/MICRO, AUTO - Urinalysis glucose, urine, semiquantitative Negative Negative ketones, urine, by test strip Negative Negative bilirubin, urine Negative Negative urine color Yellow Colorless;Lightyellow;Straw;Yellow appearance, urine Clear Clear specific gravity, urine 1.020 1.000-1.030 pH, urine, semiquantitative 8.0 5.0-8.5 urobilinogen, urine, semiquantitative (dipstick) 0.2 Normal leukocyte esterase, urine, by dipstick Negative Negative nitrite, urine, semiquantitative Negative Negative Lab Report: CBC, Comp. Metabolic Panel, UADIP W/MICRO, AUTO - Chemistry RBC, urine, dipstick Negative Negative protein, total urine random Negative mg/dL Negative sodium, serum 142 mmol/L 205-299 2606/11/12 potassium, serum 4.1 mmol/L 3.5-5.2 chloride, serum [...] 8.5-10.1 bilirubin, serum, total 0.60 mg/dL 0.00-1.00 Lab Report: CBC, Comp. Metabolic Panel, UADIP W/MICRO, AUTO - Hematology mean corpuscular hemoglobin, RBC 28.5 pg 27.0-31.2 mean corpuscular hemoglobin concentration, RBC 32.3 G/DL % 31.8- 35.4 red blood cell distribution width 13.8 % 11.6-14.8 platelet count 212 10^3/MM^3 10*3/mm3 026-664 9496/11/12 mean corpuscular volume, RBC 88 fL 80-97 hematocrit, blood 39.8 % 36.0-46.0 hemoglobin, blood 12.9 g/dL 12.0-16.0 erythrocyte (RBC) count 4.50 10^6/MM^3 10*6/mm3 4.04-5.48 leukocyte count, blood 7.3 10^3/MM^3 10*3/mm3 4.6-10.2 Lab Report: CBC, Comp. Metabolic Panel, UADIP W/MICRO, AUTO - Urinalysis glucose, urine, semiquantitative Negative Negative ketones, urine, by test strip Negative Negative bilirubin, urine Negative Negative urine color Yellow Colorless;Lightyellow;Straw;Yellow appearance, urine SlCloudy Clear specific gravity, urine 1.025 1.000-1.030 pH, urine, semiquantitative 7.5 5.0-8.5 urobilinogen, urine, semiquantitative (dipstick) 0.2 Normal leukocyte esterase, urine, by dipstick Negative Negative nitrite, urine, semiquantitative Negative Negative urate crystals, amorphous, urine, semiquantitative Few None seen Encounters Code Encounter Date Provider Facility CPT-81057 Level 3 Est. Patient 12:19:42 CDT Daniele Mcfadden DO [facility] CPT-79856 Level 3 Est. Patient 11:08:45 CDT Annita Mejia MD PhD [facility] CPT-34654 Level 3 Est. Patient 12:00:17 CDT Kendell Coronado MD [facility] CPT-00946 Level 3 Est. Patient 12:27:25 CDT Daniele Mcfadden [facility] CPT-99200 Level 3 Est. Patient 18:45:11 [employer] Daniele Mcfadden [facility] CPT-41084 Level 3 Est. Patient 10:12:24 [employer] Daniele Mcfadden [facility] CPT-27117 Level 3 Est. Patient 14:35:11 [employer] Daniele Mcfadden [facility] CPT-59080 Level 3 Est. Patient 14:11:04 CDT Daniele Mcfadden [facility] CPT-82450 Level 3 Est. Patient 10:52:13 CDT Alexander LOPEZ [facility] CPT-83403 Level 3 Est. Patient 11:01:08 [employer] Daniele Mcfadden [facility] CPT-75581 Level 3 Est. Patient 10:55:35 CDT Daniele Mcfadden [facility] CPT-59709 Level 3 Est. Patient 14:03:08 CDT Daniele Mcfadden [facility] CPT-47451 Level 3 Est. Patient 11:26:19 CDT Margarito Kelley MD [facility] CPT-92555 Level 2 Est. Patient 15:32:04 [employer] Daniele Mcfadden [facility] CPT-71012 Level 3 Est. Patient 16:01:26 [employer] Daniele Mcfadden [facility] CPT-00986 Level 3 Est. Patient 06:37:10 [employer] Daniele Mcfadden [facility] Procedures Code Procedure Name Date Entry Date Standard Description CPT-95254 Abd compl w upright 12:34:39 CDT CPT-23255 Immunization Single Admin 11:38:41 CDT CPT-30833 Fluzone Quadrivalent Intramuscular Suspension 0.5 ML 11: 38:41 CDT CPT-OV Office Visit 14:45:12 [employer] CPT-09798 [employer] inc all organs plus proximal aorta and distal IVC 2012 12:13:02 [employer] CPT-09263 Abd compl w upright 15:12:58 [employer] CPT-26805 Venipuncture Draw Fee 14:38:32 [employer] CPT-05891 Administration single or combination vaccine inc oral 17 :10:04 CDT CPT-20498 Gardasil 17:10:04 CDT CPT-77742 Venipuncture Draw Fee 16:07:54 [employer] CPT-72927 Administration 2+ single or combination vaccines inc oral 17:22:02 CDT CPT-84047 Administration single or combination vaccine inc oral 17 :22:02 CDT CPT-13818 Influenza split virus > age 3 17:22:02 CDT CPT-63841 Gardasil 17:22:02 CDT CPT-76356 Administration 2+ single or combination vaccines inc oral 14:38:31 CDT CPT-15364 Administration single or combination vaccine inc oral 14 :38:31 CDT CPT-04021 Meningococcal Conjugate Vacine (Menactra) 14:38:31 CDT CPT-92098 Gardasil 14:38:31 CDT
--- OUTSIDE RECORDS SUMMARY | 2018-02-15 07:21 | XMS REPORT | Clinical Summary ---
Author Author Admin, OLEG Organization [facility] Address Unknown Phone Unavailable Allergies, Adverse [...] Abdominal pain ICD-789.00 Inactive Errol Pack MD CONCUSSION WITH LOC OF 30 MINUTES OR LESS ICD-850.11 Inactive Margariot Kelley MD Abdominal pain ICD-789.00 Inactive Kendell Coronado MD Ankle sprain ICD-845.00 Inactive Kendell Coronado MD U R I ICD-465.9 Inactive Daniele Mcfadden DO Fatigue ICD-780.79 Inactive Margarito Kelley MD 2014 [...] Generic Name NDC Status Provider Patient Instruction CEFTIN 500 MG TAB 1 tablet by mouth twice daily for ten days. CEFUROXIME AXETIL [id number] Active Margarito Kelley MD Active PREDNISONE 20 MG TAB 2 tabs daily for 3 days, 1 tab daily for 3 days, 1/2 tab daily for 2 days PREDNISONE 19698013097 No Longer Active Margarito Kelley MD Active CEPHALEXIN 500 MG CAPS 1 tablet by mouth three times daily for ten days 06/25 CEPHALEXIN 42092268515 No Longer Active Renée Adames APRN Active MEDROL (MARY) 4 MG TABS 6 pills on day 1, 5 pills on day 2, 4 pills on day 3, 4 pills on day 4, 2 pills on day 5, 1 pill on day 6 METHYLPREDNISOLONE 22218652892 No Longer Active Annita Mejia MD PhD Active ZITHROMAX Z-MARY 250 MG TABS 2 today and then 1 daily for 4 days AZITHROMYCIN 14439028616 No Longer Active Annita Mejia MD PhD Active GUAIFENESIN-CODEINE 100-10 MG/5ML SYRP 5ml every 4 to 6 hours as needed for cough GUAIFENESIN-CODEINE 11975699869 No Longer Active Annita Mejia MD PhD Active FLONASE 50 MCG/ACT SUSP 1 spray each nostril am and hs FLUTICASONE PROPIONATE 77243676801 No Longer Active Kendell Coronado MD Active MELOXICAM 15 MG TABS 1 po q day for pain with food MELOXICAM 04084344214 No Longer Active Kendell Coronado MD Active HYDROCODONE-ACETAMINOPHEN 5-325 MG TABS 1-2 q 4-6 hrs prn pain 20 tabs 07/04 HYDROCODONE-ACETAMINOPHEN 83940567520 No Longer Active Daniele Mcfadden DO Active PREDNISONE 20 MG TAB 1 tablet twice daily for 2 days, then 1 tablet once daily for 2 days PREDNISONE 08781663313 No Longer Active Daniele Mcfadden DO Active PREDNISONE 20 MG TAB 1 po bid 2 days, then daily for 2 days 12/27 PREDNISONE 64264581632 No Longer Active Alexander LOPEZ Active AZITHROMYCIN 250 MG TABS 2 po qd x 1 day, then 1 po qd x 4 days AZITHROMYCIN 10753192721 No Longer Active Daniele Mcfadden DO Active MUCINEX MAXIMUM STRENGTH FU48L-TEU 1 po qd GUAIFENESIN XR12H- TAB 52901310640 No Longer Active Daniele Mcfadden DO Active AZITHROMYCIN 250 MG TABS 2 po qd x 1 day, then 1 po qd x 4 days AZITHROMYCIN 58448925400 No Longer Active Margarito Kelley MD Active PROAIR HFA 108 (90 BASE) MCG/ACT AERS 2 puffs every 4 hours as needed ALBUTEROL SULFATE 33536030373 Active Mckenna Mayo LPN Active E-Z SPACER ERIBERTO use with proair inhalier every 4 times as need. SPACER/ AERO-HOLDING CHAMBERS 07461964844 Active Mckenna Mayo LPN Active IRVING-D ALLERGY & CONGESTION EX15G-HKB 1 po bid FEXOFENADINE -PSEUDOEPHEDRINE HE62Q-QQG 30085082289 Active Daniele Mcfadden DO Active MUCINEX MAXIMUM STRENGTH ED88B-PIB 1 po qd MUCINEX MAXIMUM STRENGTH HM69C-GTB GUAIFENESIN EB78I-OON Inactive PREDNISONE 20 MG TAB 1 po bid 2 days, then daily for 2 days 12/27 PREDNISONE 20 MG TAB 508509 PREDNISONE Inactive PREDNISONE 20 MG TAB 1 tablet twice daily for 2 days, then 1 tablet once daily for 2 days PREDNISONE 20 MG TAB 615682 PREDNISONE Inactive HYDROCODONE-ACETAMINOPHEN 5-325 MG TABS 1-2 q 4-6 hrs prn pain 20 tabs 07/04 HYDROCODONE-ACETAMINOPHEN 5-325 MG TABS 348220 HYDROCODONE- ACETAMINOPHEN Inactive MELOXICAM 15 MG TABS 1 po q day for pain with food MELOXICAM 15 MG TABS 888635 MELOXICAM Inactive FLONASE 50 MCG/ACT SUSP 1 spray each nostril am and hs FLONASE 50 MCG/ACT SUSP 242659 FLUTICASONE PROPIONATE Inactive GUAIFENESIN-CODEINE 100-10 MG/5ML SYRP 5ml every 4 to 6 hours as needed for cough GUAIFENESIN-CODEINE 100-10 MG/5ML SYRP 516456 GUAIFENESIN-CODEINE Inactive ZITHROMAX Z-MARY 250 MG TABS 2 today and then 1 daily for 4 days ZITHROMAX Z-MARY 250 MG TABS 2063978 AZITHROMYCIN Inactive AZITHROMYCIN 250 MG TABS 2 po qd x 1 day, then 1 po qd x 4 days AZITHROMYCIN 250 MG TABS 2840954 AZITHROMYCIN Inactive AZITHROMYCIN 250 MG TABS 2 po qd x 1 day, then 1 po qd x 4 days AZITHROMYCIN 250 MG TABS 1096840 AZITHROMYCIN Inactive MEDROL (MARY) 4 MG TABS 6 pills on day 1, 5 pills on day 2, 4 pills on day 3, 4 pills on day 4, 2 pills on day 5, 1 pill on day 6 MEDROL (MARY) 4 MG TABS METHYLPREDNISOLONE Inactive CEPHALEXIN 500 MG CAPS 1 tablet by mouth three times daily for ten days 06/25 CEPHALEXIN 500 MG CAPS 258849 CEPHALEXIN Inactive PREDNISONE 20 MG TAB 2 tabs daily for 3 days, 1 tab daily for 3 days, 1/2 tab daily for 2 days PREDNISONE 20 MG TAB 159323 PREDNISONE Inactive Immunizations Vaccine Administration Date Value Standard Description Human Papillomavirus vaccine (Gardasil) #2, (HPV #2) Gardasil [ CVX62] human papilloma virus vaccine, quadrivalent Seasonal influenza vaccine, injectable, containing preservative, for > 3 years old (Afluria, FluLaval, Fluzone, Fluvirin, Fluarix, Agriflu(>=18 yo)) Fluzone (>3 yrs.) [[id number]] Influenza, seasonal, injectable Human Papillomavirus Vaccine (Gardasil) #1 Given (HPV #1) Gardasil [CVX62] human papilloma virus vaccine, quadrivalent hepatitis A immunization #2 Havrix-Pedi hepatitis A vaccine, unspecified formulation Boostrix (Tetanus toxoid, reduced diphtheria toxoid and acellular pertussis vaccine, adsorbed), booster Boostrix [[id number]] tetanus toxoid, reduced diphtheria toxoid, and acellular pertussis vaccine, adsorbed hepatitis A immunization #1 Havrix-Pedi hepatitis A vaccine, unspecified formulation oral polio vaccine (OPV) #4 IPV poliovirus vaccine, unspecified formulation MMR (measles, mumps, rubella) virus immunization #2 MMR DPT immunization #5 DTaP oral polio vaccine (OPV) #3 IPV poliovirus [...] (OPV) #2 IPV poliovirus vaccine, unspecified formulation oral polio vaccine (OPV) #1 [...] Range Description blood pressure, diastolic - 8462-4 85 mm[Hg] BP [place] blood pressure, systolic - 8480-6 137 mm[Hg] BP sys pulse rate E&M - 8867-4 98 /min Heart rate temperature E&M 97.6 [degF] Body temperature weight E&M - 3141-9 180.8 [lb_av] Weight Measured blood pressure, diastolic - 8462-4 77 mm[Hg] BP [place] blood pressure, systolic - 8480-6 131 mm[Hg] BP sys height E&M - 8302-2 70 [in_us] Bdy height pulse rate E&M - 8867-4 76 /min Heart rate temperature E&M 98.6 [degF] Body temperature weight E&M - 3141-9 178.8 [lb_av] Weight Measured blood pressure, diastolic - 8462-4 74 mm[Hg] BP [place] blood pressure, systolic - 8480-6 116 mm[Hg] BP sys pulse rate E&M - 8867-4 75 /min Heart rate temperature E&M 96.9 [degF] Body temperature weight E&M - 3141-9 176 [lb_av] Weight Measured blood pressure, diastolic - 8462-4 76 mm[Hg] BP [place] blood pressure, systolic - 8480-6 114 mm[Hg] BP sys pulse rate E&M - 8867-4 72 /min Heart rate temperature E&M 98.4 [degF] Body temperature weight E&M - 3141-9 176 [lb_av] Weight Measured blood pressure, diastolic - [...] E&M - 3141-9 166 [lb_av] Weight Measured Diagnostic Results Date Name Value Unit Range Description Immunizations: TB Skin Test - Challenge tests PPD results in mm 0 mm Lab Report: CBC W/DIFF, Comp. Metabolic Panel, UADIP W/MICRO, AUTO - Chemistry sodium, serum 136 mmol/L 838-718 1539/10/31 potassium, serum 4.4 mmol/L 3.5-5.2 chloride, serum [...] Metabolic Panel, UADIP W/MICRO, AUTO - Hematology erythrocyte (RBC) count 4.66 10^6/MM^3 10*6/mm3 4.04-5.48 lymphocytes as percent of blood leukocytes 37.4 % 20.5-51.1 monocytes as percent of blood leukocytes 5.3 % 1.7-9.3 neutrophils as percent of blood leukocytes 55.5 % 42.2-75.2 leukocyte count, blood 7.0 10^3/MM^3 10*3/mm3 4.6-10.2 mean corpuscular hemoglobin, RBC 29.1 pg 27.0-31.2 mean corpuscular volume, RBC 88 fL 80-97 hematocrit, blood 40.9 % 36.0-46.0 hemoglobin, blood 13.6 g/dL 12.0-16.0 mean corpuscular hemoglobin concentration, RBC 33.1 G/DL % 31.8- 35.4 red blood cell distribution width 13.3 % 11.6-14.8 platelet count 199 10^3/MM^3 10*3/mm3 142-424 Lab Report: CBC W/DIFF, Comp. Metabolic Panel, UADIP W/MICRO, AUTO - Urinalysis urobilinogen, urine, semiquantitative (dipstick) 0.2 Normal leukocyte esterase, urine, by dipstick Negative Negative nitrite, urine, semiquantitative Negative Negative glucose, urine, semiquantitative Negative Negative ketones, urine, by test strip Negative Negative bilirubin, urine Negative Negative urine color Yellow Colorless;Lightyellow;Straw;Yellow appearance, urine Clear Clear specific gravity, urine 1.020 1.000-1.030 pH, urine, semiquantitative 8.0 5.0-8.5 Encounters Code Encounter Date Provider Facility CPT-18576 Level 3 Est. Patient 09:16:05 CONSTRUCTION CONTROLLER Margarito Kelley MD [facility] CPT-79358 Level 3 Est. Patient 15:37:06 CONSTRUCTION CONTROLLER Daniele Mcfadden DO [facility] CPT-22325 Level 3 Est. Patient 11:56:34 CONSTRUCTION CONTROLLER Renée Adames APRN [facility] CPT-19391 Level 3 Est. Patient 12:19:42 CDT Daniele Mcfadden [facility] CPT-42350 Level 3 Est. Patient 11:08:45 CDT Annita Mejia MD PhD [facility] CPT-53414 Level 3 Est. Patient 12:00:17 CDT Kendell Coronado MD [facility] CPT-75922 Level 3 Est. Patient 12:27:25 CDT Daniele Mcfadden [facility] CPT-60811 Level 3 Est. Patient 18:45:11 CONSTRUCTION CONTROLLER Daniele Mcfadden [facility] CPT-26727 Level 3 Est. Patient 10:12:24 CONSTRUCTION CONTROLLER Daniele Mcfadden [facility] CPT-60815 Level 3 Est. Patient 14:35:11 CONSTRUCTION CONTROLLER Daniele Mcfadden [facility] CPT-95926 Level 3 Est. Patient 14:11:04 CDT Daniele Mcfadden [facility] CPT-30903 Level 3 Est. Patient 10:52:13 CDT Alexander LOPEZ [facility] CPT-19279 Level 3 Est. Patient 11:01:08 CONSTRUCTION CONTROLLER Daniele Mcfdaden DO [facility] CPT-27258 Level 3 Est. Patient 10:55:35 CDT Daniele Mcfadden [facility] CPT-78647 Level 3 Est. Patient 14:03:08 CDT Daniele Mcfadden [facility] CPT-86378 Level 3 Est. Patient 11:26:19 CDT Margarito Kelley MD [facility] CPT-32534 Level 2 Est. Patient 15:32:04 CONSTRUCTION CONTROLLER Daniele Mcfadden [facility] CPT-16877 Level 3 Est. Patient 16:01:26 CONSTRUCTION CONTROLLER Daniele Mcfadden [facility] CPT-23450 Level 3 Est. Patient 06:37:10 CONSTRUCTION CONTROLLER Daniele Mcfadden [facility] Procedures Code Procedure Name Date Entry Date Standard Description CPT-70105 Abd compl w upright 12:34:39 CDT CPT-39005 Immunization Single Admin 11:38:41 CDT CPT-43273 Fluzone Quadrivalent Intramuscular Suspension 0.5 ML 11: 38:41 CDT CPT-OV Office Visit 14:45:12 CONSTRUCTION CONTROLLER CPT-35968 [employer] all organs plus proximal aorta and distal IVC 2012 12:13:02 CONSTRUCTION CONTROLLER CPT-92162 Abd compl w upright 15:12:58 CONSTRUCTION CONTROLLER CPT-10496 Venipuncture Draw Fee 14:38:32 CONSTRUCTION CONTROLLER CPT-75308 Administration single or combination vaccine inc oral 17 :10:04 CDT CPT-18734 Gardasil 17:10:04 CDT CPT-18897 Venipuncture Draw Fee 16:07:54 CONSTRUCTION CONTROLLER CPT-11850 Administration 2+ single or combination vaccines inc oral 17:22:02 CDT CPT-25504 Administration single or combination vaccine inc oral 17 :22:02 CDT CPT-99503 Influenza split virus > age 3 17:22:02 CDT CPT-26141 Gardasil 17:22:02 CDT CPT-54293 Administration 2+ single or combination vaccines inc oral 14:38:31 CDT CPT-44207 Administration single or combination vaccine inc oral 14 :38:31 CDT CPT-64591 Meningococcal Conjugate Vacine (Menactra) 14:38:31 CDT CPT-34371 Gardasil 14:38:31 CDT
--- OUTSIDE RECORDS SUMMARY | 2018-02-15 07:21 | XMS REPORT | Clinical Summary ---
Author Author Admin, OLEG Organization [facility] Address Unknown Phone Unavailable Allergies, Adverse Reactions, [...] twice daily for ten days. CEFUROXIME AXETIL 89987389740 Active Margarito Kelley MD Active PREDNISONE 20 MG TAB 2 tabs daily for 3 days, 1 tab daily for 3 days, 1/2 tab daily for 2 days PREDNISONE 28751629580 Active Maragrito Kelley MD Active CEPHALEXIN 500 MG CAPS 1 tablet by mouth three times daily for ten days 06/25 CEPHALEXIN 33343472770 No Longer Active Renée Adames APRN Active MEDROL (MARY) 4 MG TABS 6 pills on day 1, 5 pills on day 2, 4 pills on day 3, 4 pills on day 4, 2 pills on day 5, 1 pill on day 6 METHYLPREDNISOLONE 18968036373 No Longer Active Annita Mejia MD PhD Active ZITHROMAX Z-MARY 250 MG TABS 2 today and then 1 daily for 4 days AZITHROMYCIN 41354494898 No Longer Active Annita Mejia MD PhD Active GUAIFENESIN-CODEINE 100-10 MG/5ML SYRP 5ml every 4 to 6 hours as needed for cough GUAIFENESIN-CODEINE 40547527053 No Longer Active Annita Mejia MD PhD Active FLONASE 50 MCG/ACT SUSP 1 spray each nostril am and hs FLUTICASONE PROPIONATE 61694544854 No Longer Active Kendell Coronado MD Active MELOXICAM 15 MG TABS 1 po q day for pain with food MELOXICAM 83041929529 No Longer Active Kendell Coronado MD Active HYDROCODONE-ACETAMINOPHEN 5-325 MG TABS 1-2 q 4-6 hrs prn pain 20 tabs 07/04 HYDROCODONE-ACETAMINOPHEN 56319228993 No Longer Active Daniele Mcfadden DO Active PREDNISONE 20 MG TAB 1 tablet twice daily for 2 days, then 1 tablet once daily for 2 days PREDNISONE 29131217893 No Longer Active Daniele Mcfadden DO Active PREDNISONE 20 MG TAB 1 po bid 2 days, then daily for 2 days 12/27 PREDNISONE 53885674234 No Longer Active Alexander LOPEZ Active AZITHROMYCIN 250 MG TABS 2 po qd x 1 day, then 1 po qd x 4 days AZITHROMYCIN 55930581652 No Longer Active Daniele Mcfadden DO Active MUCINEX MAXIMUM STRENGTH LV91L-UEG 1 po qd GUAIFENESIN XR12H- TAB 95549249563 No Longer Active Daniele Mcfadden DO Active AZITHROMYCIN 250 MG TABS 2 po qd x 1 day, then 1 po qd x 4 days AZITHROMYCIN 19185279171 No Longer Active Margarito Kelley MD Active PROAIR HFA 108 (90 BASE) MCG/ACT AERS 2 puffs every 4 hours as needed ALBUTEROL SULFATE 93158671702 Active Mckenna Mayo LPN Active E-Z SPACER ERIBERTO use with proair inhalier every 4 times as need. SPACER/ AERO-HOLDING CHAMBERS 26647335400 Active Mckenna Mayo LPN Active IRVING-D ALLERGY & CONGESTION KA81H-XPH 1 po bid FEXOFENADINE -PSEUDOEPHEDRINE YD85M-JMB 75416409236 Active Daniele Mcfadden DO Active MUCINEX MAXIMUM STRENGTH DZ18R-XIV 1 po qd MUCINEX MAXIMUM STRENGTH EA60X-LDE GUAIFENESIN KA81T-UJN Inactive PREDNISONE 20 MG TAB 1 po bid 2 days, then daily for 2 days 12/27 PREDNISONE 20 MG TAB 709309 PREDNISONE Inactive PREDNISONE 20 MG TAB 1 tablet twice daily for 2 days, then 1 tablet once daily for 2 days PREDNISONE 20 MG TAB 261011 PREDNISONE Inactive HYDROCODONE-ACETAMINOPHEN 5-325 MG TABS 1-2 q 4-6 hrs prn pain 20 tabs 07/04 HYDROCODONE-ACETAMINOPHEN 5-325 MG TABS 165311 HYDROCODONE- ACETAMINOPHEN Inactive MELOXICAM 15 MG TABS 1 po q day for pain with food MELOXICAM 15 MG TABS 743198 MELOXICAM Inactive FLONASE 50 MCG/ACT SUSP 1 spray each nostril am and hs FLONASE 50 MCG/ACT SUSP 248477 FLUTICASONE PROPIONATE Inactive GUAIFENESIN-CODEINE 100-10 MG/5ML SYRP 5ml every 4 to 6 hours as needed for cough GUAIFENESIN-CODEINE 100-10 MG/5ML SYRP 752031 GUAIFENESIN-CODEINE Inactive ZITHROMAX Z-MARY 250 MG TABS 2 today and then 1 daily for 4 days ZITHROMAX Z-MARY 250 MG TABS 2097896 AZITHROMYCIN Inactive AZITHROMYCIN 250 MG TABS 2 po qd x 1 day, then 1 po qd x 4 days AZITHROMYCIN 250 MG TABS 4520217 AZITHROMYCIN Inactive AZITHROMYCIN 250 MG TABS 2 po qd x 1 day, then 1 po qd x 4 days AZITHROMYCIN 250 MG TABS 1014868 AZITHROMYCIN Inactive MEDROL (MARY) 4 MG TABS 6 pills on day 1, 5 pills on day 2, 4 pills on day 3, 4 pills on day 4, 2 pills on day 5, 1 pill on day 6 MEDROL (MARY) 4 MG TABS METHYLPREDNISOLONE Inactive CEPHALEXIN 500 MG CAPS 1 tablet by mouth three times daily for ten days 06/25 CEPHALEXIN 500 MG CAPS 474123 CEPHALEXIN Inactive Immunizations Vaccine Administration Date Value Standard Description Human Papillomavirus vaccine (Gardasil) #2, (HPV #2) Gardasil [ CVX62] human papilloma virus vaccine, quadrivalent Seasonal influenza vaccine, injectable, containing preservative, for > 3 years old (Afluria, FluLaval, Fluzone, Fluvirin, Fluarix, Agriflu(>=18 yo)) Fluzone (>3 yrs.) [[id number]] Influenza, seasonal, injectable Human Papillomavirus Vaccine (Gardasil) #1 Given (HPV #1) Gardasil [CVX62] human papilloma virus vaccine, quadrivalent hepatitis A immunization #2 Havrix-Pedi hepatitis A vaccine, unspecified formulation Boostrix (Tetanus toxoid, reduced diphtheria toxoid and acellular pertussis vaccine, adsorbed), booster Boostrix [[id number]] tetanus toxoid, reduced diphtheria toxoid, and acellular [...] urine random Negative mg/dL Negative sodium, serum 136 mmol/L 429-380 5086/10/31 potassium, serum 4.4 mmol/L 3.5-5.2 chloride, serum [...] serum, total 0.60 mg/dL 0.00-1.00 Lab Report: CBC W/DIFF, Comp. Metabolic Panel, UADIP W/MICRO, AUTO - Hematology leukocyte count, blood 7.0 10^3/MM^3 10*3/mm3 4.6-10.2 neutrophils as percent of blood leukocytes 55.5 % 42.2-75.2 monocytes as percent of blood leukocytes 5.3 % 1.7-9.3 lymphocytes as percent of blood leukocytes 37.4 [...] Negative Negative nitrite, urine, semiquantitative Negative Negative urine color Yellow Colorless;Lightyellow;Straw;Yellow appearance, urine Clear Clear specific gravity, urine 1.020 1.000-1.030 pH, urine, semiquantitative 8.0 5.0-8.5 Encounters Code Encounter Date Provider Facility CPT-28607 Level 3 Est. Patient 09:16:05 NUCLEAR FUELS RESEARCH ENGINEER Margarito Kelley MD [facility] CPT-76627 Level 3 Est. Patient 15:37:06 NUCLEAR FUELS RESEARCH ENGINEER Daniele Mcfadden DO [facility] CPT-24185 Level 3 Est. Patient 11:56:34 NUCLEAR FUELS RESEARCH ENGINEER Renée Adames APRN [facility] CPT-04613 Level 3 Est. Patient 12:19:42 CDT Daniele Mcfadden DO [facility] CPT-07317 Level 3 Est. Patient 11:08:45 CDT Annita Mejia MD PhD [facility] CPT-61874 Level 3 Est. Patient 12:00:17 CDT Kendell Coronado MD [facility] CPT-89596 Level 3 Est. Patient 12:27:25 CDT Daniele Mcfadden [facility] CPT-40336 Level 3 Est. Patient 18:45:11 NUCLEAR FUELS RESEARCH ENGINEER Daniele Mcfadden [facility] CPT-99468 Level 3 Est. Patient 10:12:24 NUCLEAR FUELS RESEARCH ENGINEER Daniele Mcfadden [facility] CPT-02134 Level 3 Est. Patient 14:35:11 NUCLEAR FUELS RESEARCH ENGINEER Daniele Mcfadden [facility] CPT-05598 Level 3 Est. Patient 14:11:04 CDT Daniele Mcfadden [facility] CPT-91973 Level 3 Est. Patient 10:52:13 CDT Alexander LOPEZ [facility] CPT-44906 Level 3 Est. Patient 11:01:08 NUCLEAR FUELS RESEARCH ENGINEER Daniele Mcfadden [facility] CPT-75186 Level 3 Est. Patient 10:55:35 CDT [facility] CPT-51968 Level 3 Est. Patient 14:03:08 CDT Daniele Mcfadden [facility] CPT-66416 Level 3 Est. Patient 11:26:19 CDT Margarito Kelley MD [facility] CPT-55841 Level 2 Est. Patient 15:32:04 NUCLEAR FUELS RESEARCH ENGINEER Daniele Mcfadden [facility] CPT-34759 Level 3 Est. Patient 16:01:26 NUCLEAR FUELS RESEARCH ENGINEER Daniele Mcfadden [facility] CPT-20592 Level 3 Est. Patient 06:37:10 NUCLEAR FUELS RESEARCH ENGINEER Daniele Mcfadden [facility] Procedures Code Procedure Name Date Entry Date Standard Description CPT-57600 Abd compl w upright 12:34:39 CDT CPT-07808 Immunization Single Admin 11:38:41 CDT CPT-66966 Fluzone Quadrivalent Intramuscular Suspension 0.5 ML 11: 38:41 CDT CPT-OV Office Visit 14:45:12 NUCLEAR FUELS RESEARCH ENGINEER CPT-67875 [employer] all organs plus proximal aorta and distal IVC 2012 12:13:02 NUCLEAR FUELS RESEARCH ENGINEER CPT-88465 Abd compl w upright 15:12:58 NUCLEAR FUELS RESEARCH ENGINEER CPT-24451 Venipuncture Draw Fee 14:38:32 NUCLEAR FUELS RESEARCH ENGINEER CPT-96955 Administration single or combination vaccine inc oral 17 :10:04 CDT CPT-48540 Gardasil 17:10:04 CDT CPT-76370 Venipuncture Draw Fee 16:07:54 NUCLEAR FUELS RESEARCH ENGINEER CPT-15342 Administration 2+ single or combination vaccines inc oral 17:22:02 CDT CPT-20900 Administration single or combination vaccine inc oral 17 :22:02 CDT CPT-73918 Influenza split virus > age 3 17:22:02 CDT CPT-99200 Gardasil 17:22:02 CDT CPT-13499 Administration 2+ single or combination vaccines inc oral 14:38:31 CDT CPT-67375 Administration single or combination vaccine inc oral 14 :38:31 CDT CPT-46130 Meningococcal Conjugate Vacine (Menactra) 14:38:31 CDT CPT-51075 Gardasil 14:38:31 CDT
--- OUTSIDE RECORDS SUMMARY | 2018-02-15 07:22 | XMS REPORT | Clinical Summary ---
Author Author Admin, OLEG Organization [facility] Address Unknown Phone Unavailable Allergies, Adverse [...] 5, 1 pill on day 6 METHYLPREDNISOLONE [id number] No Longer Active Annita Mejia MD PhD Active ZITHROMAX Z-MARY 250 MG TABS 2 today and then 1 daily for 4 days AZITHROMYCIN 58827028499 No Longer Active Annita Mejia MD PhD Active GUAIFENESIN-CODEINE 100-10 MG/5ML SYRP 5ml every 4 to 6 hours as needed for cough GUAIFENESIN-CODEINE 84391506001 No Longer Active Annita Mejia MD PhD Active FLONASE 50 MCG/ACT SUSP 1 spray each nostril am and hs FLUTICASONE PROPIONATE 97435060404 No Longer Active Kendell Coronado MD Active MELOXICAM 15 MG TABS 1 po q day for pain with food MELOXICAM 42413356335 No Longer Active Kendell Coronado MD Active HYDROCODONE-ACETAMINOPHEN 5-325 MG TABS 1-2 q 4-6 hrs prn pain 20 tabs 07/04 HYDROCODONE-ACETAMINOPHEN 07583859357 No Longer Active Daniele Mcfadden DO Active PREDNISONE 20 MG TAB 1 tablet twice daily for 2 days, then 1 tablet once daily for 2 days PREDNISONE 52492614838 No Longer Active Daniele Mcfadden DO Active PREDNISONE 20 MG TAB 1 po bid 2 days, then daily for 2 days 12/27 PREDNISONE 87459421550 No Longer Active Alexander LOPEZ Active AZITHROMYCIN 250 MG TABS 2 po qd x 1 day, then 1 po qd x 4 days AZITHROMYCIN 26621372393 No Longer Active Daniele Mcfadden DO Active MUCINEX MAXIMUM STRENGTH [id number] 1 po qd GUAIFENESIN XR12H- TAB 83750355878 No Longer Active Daniele Mcfadden DO Active AZITHROMYCIN 250 MG TABS 2 po qd x 1 day, then 1 po qd x 4 days AZITHROMYCIN 67762000225 No Longer Active Margarito Kelley MD Active PROAIR HFA 108 (90 BASE) MCG/ACT AERS 2 puffs every 4 hours as needed ALBUTEROL SULFATE 47983493501 Active Mckenna Cabreraum SERVICE LINE COORDINATOR Active E-Z SPACER ERIBERTO use with proair inhalier every 4 times as need. SPACER/ AERO-HOLDING CHAMBERS 74766044794 Active Mckenna Cabreraum SERVICE LINE COORDINATOR Active IRVING-D ALLERGY & CONGESTION [id number]-[id number] 1 po bid FEXOFENADINE -PSEUDOEPHEDRINE [id number] 79365267168 Active Daniele Mcfadden DO Active MUCINEX MAXIMUM STRENGTH [id number]-WJQ 1 po qd MUCINEX MAXIMUM STRENGTH [id number]-HPW GUAIFENESIN OO79Z-EAT Inactive PREDNISONE 20 MG TAB 1 po bid 2 days, then daily for 2 days 12/27 PREDNISONE 20 MG TAB 081102 PREDNISONE Inactive PREDNISONE 20 MG TAB 1 tablet twice daily for 2 days, then 1 tablet once daily for 2 days PREDNISONE 20 MG TAB 149457 PREDNISONE Inactive HYDROCODONE-ACETAMINOPHEN 5-325 MG TABS 1-2 q 4-6 hrs prn pain 20 tabs 07/04 HYDROCODONE-ACETAMINOPHEN 5-325 MG TABS 835701 HYDROCODONE- ACETAMINOPHEN Inactive MELOXICAM 15 MG TABS 1 po q day for pain with food MELOXICAM 15 MG TABS 447329 MELOXICAM Inactive FLONASE 50 MCG/ACT SUSP 1 spray each nostril am and hs FLONASE 50 MCG/ACT SUSP 106322 FLUTICASONE PROPIONATE Inactive GUAIFENESIN-CODEINE 100-10 MG/5ML SYRP 5ml every 4 to 6 hours as needed for cough GUAIFENESIN-CODEINE 100-10 MG/5ML SYRP 515310 GUAIFENESIN-CODEINE Inactive ZITHROMAX Z-MARY 250 MG TABS 2 today and then 1 daily for 4 days ZITHROMAX Z-MARY 250 MG TABS 1463026 AZITHROMYCIN Inactive AZITHROMYCIN 250 MG TABS 2 po qd x 1 day, then 1 po qd x 4 days AZITHROMYCIN 250 MG TABS 9181197 AZITHROMYCIN Inactive AZITHROMYCIN 250 MG TABS 2 po qd x 1 day, then 1 po qd x 4 days AZITHROMYCIN 250 MG TABS 5922933 AZITHROMYCIN Inactive MEDROL (MARY) 4 MG TABS [...] Fluvirin, Fluarix, Agriflu(>=18 yo)) Fluzone (>3 yrs.) [[id number]] Influenza, seasonal, injectable Human Papillomavirus Vaccine (Gardasil) #1 Given (HPV #1) Gardasil [CVX62] human papilloma virus vaccine, quadrivalent hepatitis A immunization #2 Havrix-Pedi hepatitis A vaccine, unspecified formulation Combined Iictqflhpg-Puyovum-wqnqbntet Pertussis (dTpa) Vaccine - Booster 12/02 Boostrix [[id number]] tetanus toxoid, reduced diphtheria toxoid, and acellular [...] Value Unit Range Description blood pressure, diastolic 74 mm[Hg] BP herndon [...] Metabolic Panel, UADIP W/MICRO, AUTO - Chemistry protein, total urine random Negative mg/dL Negative RBC, urine, dipstick Negative Negative sodium, serum 136 mmol/L 854-715 0921/10/31 potassium, serum 4.4 mmol/L 3.5-5.2 chloride, serum [...] 1.020 1.000-1.030 pH, urine, semiquantitative 8.0 5.0-8.5 Lab Report: CBC, Comp. Metabolic Panel, UADIP W/MICRO, AUTO - Chemistry sodium, serum 142 mmol/L 814-483 5609/11/12 potassium, serum 4.1 mmol/L 3.5-5.2 chloride, serum [...] 5.0-8.5 Encounters Code Encounter Date Provider Facility CPT-32864 Level 3 Est. Patient 12:19:42 CDT Daniele Mcfadden DO [facility] CPT-39524 Level 3 Est. Patient 11:08:45 CDT Annita Mejia MD PhD [facility] CPT-24877 Level 3 Est. Patient 12:00:17 CDT Kendell Coronado MD [facility] CPT-89203 Level 3 Est. Patient 12:27:25 CDT Daniele Mcfadden [facility] CPT-54979 Level 3 Est. Patient 18:45:11 DIESEL TECHNOLOGY INSTRUCTOR Daniele Mcfadden [facility] CPT-51055 Level 3 Est. Patient 10:12:24 DIESEL TECHNOLOGY INSTRUCTOR Daniele Mcfadden [facility] CPT-01262 Level 3 Est. Patient 14:35:11 DIESEL TECHNOLOGY INSTRUCTOR Daniele Mcfadden [facility] CPT-84171 Level 3 Est. Patient 14:11:04 CDT Daniele Mcfadden [facility] CPT-48657 Level 3 Est. Patient 10:52:13 CDT Alexander Estrada [facility] CPT-91508 Level 3 Est. Patient 11:01:08 DIESEL TECHNOLOGY INSTRUCTOR Daniele Mcfadden [facility] CPT-35188 Level 3 Est. Patient 10:55:35 CDT Daniele Mcfadden [facility] CPT-39057 Level 3 Est. Patient 14:03:08 CDT Daniele Mcfadden [facility] CPT-93995 Level 3 Est. Patient 11:26:19 CDT Margarito Kelley MD [facility] CPT-83364 Level 2 Est. Patient 15:32:04 DIESEL TECHNOLOGY INSTRUCTOR Daniele Mcfadden [facility] CPT-06750 Level 3 Est. Patient 16:01:26 DIESEL TECHNOLOGY INSTRUCTOR Daniele Gaetano Bogdan [facility] CPT-80397 Level 3 Est. Patient 06:37:10 DIESEL TECHNOLOGY INSTRUCTOR Daniele Gaetano [facility] Procedures Code Procedure Name Date Entry Date Standard Description CPT-27512 Abd compl w upright 12:34:39 CDT CPT-90788 Immunization Single Admin 11:38:41 CDT CPT-75794 Fluzone Quadrivalent Intramuscular Suspension 0.5 ML 11: 38:41 CDT CPT-OV Office Visit 14:45:12 DIESEL TECHNOLOGY INSTRUCTOR CPT-52304 [employer] all organs plus proximal aorta and distal IVC 2012 12:13:02 DIESEL TECHNOLOGY INSTRUCTOR CPT-24017 Abd compl w upright 15:12:58 DIESEL TECHNOLOGY INSTRUCTOR CPT-27130 Venipuncture Draw Fee 14:38:32 DIESEL TECHNOLOGY INSTRUCTOR CPT-43070 Administration single or combination vaccine inc oral 17 :10:04 CDT CPT-11369 Gardasil 17:10:04 CDT CPT-04531 Venipuncture Draw Fee 16:07:54 DIESEL TECHNOLOGY INSTRUCTOR CPT-58548 Administration 2+ single or combination vaccines inc oral 17:22:02 CDT CPT-26311 Administration single or combination vaccine inc oral 17 :22:02 CDT CPT-89684 Influenza split virus > age 3 17:22:02 CDT CPT-61090 Gardasil 17:22:02 CDT CPT-27135 Administration 2+ single or combination vaccines inc oral 14:38:31 CDT CPT-43191 Administration single or combination vaccine inc oral 14 :38:31 CDT CPT-69468 Meningococcal Conjugate Vacine (Menactra) 14:38:31 CDT CPT-13955 Gardasil 14:38:31 CDT
--- OUTSIDE RECORDS SUMMARY | 2018-02-15 07:23 | XMS REPORT | Clinical Summary ---
Author Author Admin, OLEG Organization [facility] Address Unknown Phone Unavailable Allergies, [...] 5, 1 pill on day 6 METHYLPREDNISOLONE 35095888510 No Longer Active Annita Mejia MD PhD Active ZITHROMAX Z-MARY 250 MG TABS 2 today and then 1 daily for 4 days AZITHROMYCIN 39581089626 No Longer Active Annita Mejia MD PhD Active GUAIFENESIN-CODEINE 100-10 MG/5ML SYRP 5ml every 4 to 6 hours as needed for cough GUAIFENESIN-CODEINE 17595962204 No Longer Active Annita Mejia MD PhD Active FLONASE 50 MCG/ACT SUSP 1 spray each nostril am and hs FLUTICASONE PROPIONATE 89428261396 No Longer Active Kendell Coronado MD Active MELOXICAM 15 MG TABS 1 po q day for pain with food MELOXICAM 80656218547 No Longer Active Kendell Coronado MD Active HYDROCODONE-ACETAMINOPHEN 5-325 MG TABS 1-2 q 4-6 hrs prn pain 20 tabs 07/04 HYDROCODONE-ACETAMINOPHEN 00574192762 No Longer Active Daniele Mcfadden DO Active PREDNISONE 20 MG TAB 1 tablet twice daily for 2 days, then 1 tablet once daily for 2 days PREDNISONE 06128914906 No Longer Active Daniele Mcfadden DO Active PREDNISONE 20 MG TAB 1 po bid 2 days, then daily for 2 days 12/27 PREDNISONE 35894614690 No Longer Active Alexander LOPEZ Active AZITHROMYCIN 250 MG TABS 2 po qd x 1 day, then 1 po qd x 4 days AZITHROMYCIN 95567905005 No Longer Active Daniele Mcfadden DO Active MUCINEX MAXIMUM STRENGTH [id number] 1 po qd GUAIFENESIN XR12H- TAB 26037904650 No Longer Active Daniele Mcfadden DO Active AZITHROMYCIN 250 MG TABS 2 po qd x 1 day, then 1 po qd x 4 days AZITHROMYCIN 07274511882 No Longer Active Margarito Kelley MD Active PROAIR HFA 108 (90 BASE) MCG/ACT AERS 2 puffs every 4 hours as needed ALBUTEROL SULFATE 31531849688 Active Mckenna Cabreraum APPOINTMENT SPECIALIST Active E-Z SPACER ERIBERTO use with proair inhalier every 4 times as need. SPACER/ AERO-HOLDING CHAMBERS 16542310434 Active Mckenna Cabreraum APPOINTMENT SPECIALIST Active IRVING-D ALLERGY & CONGESTION [id number]-[id number] 1 po bid FEXOFENADINE -PSEUDOEPHEDRINE BT24R-AES 06097581145 Active Daniele Mcfadden DO Active MUCINEX MAXIMUM STRENGTH JF73U-EST 1 po qd MUCINEX MAXIMUM STRENGTH FB41Z-MDP GUAIFENESIN WX27V-HTB Inactive PREDNISONE 20 MG TAB 1 po bid 2 days, then daily for 2 days 12/27 PREDNISONE 20 MG TAB 207790 PREDNISONE Inactive PREDNISONE 20 MG TAB 1 tablet twice daily for 2 days, then 1 tablet once daily for 2 days PREDNISONE 20 MG TAB 996504 PREDNISONE Inactive HYDROCODONE-ACETAMINOPHEN 5-325 MG TABS 1-2 q 4-6 hrs prn pain 20 tabs 07/04 HYDROCODONE-ACETAMINOPHEN 5-325 MG TABS 315673 HYDROCODONE- ACETAMINOPHEN Inactive MELOXICAM 15 MG TABS 1 po q day for pain with food MELOXICAM 15 MG TABS 058312 MELOXICAM Inactive FLONASE 50 MCG/ACT SUSP 1 spray each nostril am and hs FLONASE 50 MCG/ACT SUSP 292530 FLUTICASONE PROPIONATE Inactive GUAIFENESIN-CODEINE 100-10 MG/5ML SYRP 5ml every 4 to 6 hours as needed for cough GUAIFENESIN-CODEINE 100-10 MG/5ML SYRP 366390 GUAIFENESIN-CODEINE Inactive ZITHROMAX Z-MARY 250 MG TABS 2 today and then 1 daily for 4 days ZITHROMAX Z-MARY 250 MG TABS 3972505 AZITHROMYCIN Inactive AZITHROMYCIN 250 MG TABS 2 po qd x 1 day, then 1 po qd x 4 days AZITHROMYCIN 250 MG TABS 6508707 AZITHROMYCIN Inactive AZITHROMYCIN 250 MG TABS 2 po qd x 1 day, then 1 po qd x 4 days AZITHROMYCIN 250 MG TABS 0599050 AZITHROMYCIN Inactive MEDROL (MARY) 4 MG TABS [...] Fluvirin, Fluarix, Agriflu(>=18 yo)) Fluzone (>3 yrs.) [[id number]] Influenza, seasonal, injectable Human Papillomavirus Vaccine (Gardasil) #1 Given (HPV #1) Gardasil [CVX62] human papilloma virus vaccine, quadrivalent hepatitis A immunization #2 Havrix-Pedi hepatitis A vaccine, unspecified formulation Combined Lbokgyoioa-Qdnotfi-tgqzwgsrm Pertussis (dTpa) Vaccine - Booster 12/02 Boostrix [[id number]] tetanus toxoid, reduced diphtheria toxoid, and acellular [...] results in mm 0 mm Lab Report: CBC, Comp. Metabolic Panel, UADIP W/MICRO, AUTO - Chemistry sodium, serum 142 mmol/L 721-093 8360/11/12 potassium, serum 4.1 mmol/L 3.5-5.2 chloride, serum [...] 5.0-8.5 Encounters Code Encounter Date Provider Facility CPT-76701 Level 3 Est. Patient 12:19:42 CDT Daniele Mcfadden [facility] CPT-57798 Level 3 Est. Patient 11:08:45 CDT Annita Mejia MD PhD [facility] CPT-50498 Level 3 Est. Patient 12:00:17 CDT Kendell Coronado MD [facility] CPT-18890 Level 3 Est. Patient 12:27:25 CDT Daniele Mcfadden [facility] CPT-58111 Level 3 Est. Patient 18:45:11 DATABASE OPERATOR Daniele Mcfadden [facility] CPT-81469 Level 3 Est. Patient 10:12:24 DATABASE OPERATOR Daniele Mcfadden [facility] CPT-87873 Level 3 Est. Patient 14:35:11 DATABASE OPERATOR Daniele Mcfadden [facility] CPT-40210 Level 3 Est. Patient 14:11:04 CDT Daniele Mcfadden [facility] CPT-84265 Level 3 Est. Patient 10:52:13 CDT Alexander LOPEZ [facility] CPT-51999 Level 3 Est. Patient 11:01:08 DATABASE OPERATOR Daniele Mcfadden [facility] CPT-11452 Level 3 Est. Patient 10:55:35 CDT Daniele Mcfadden [facility] CPT-14267 Level 3 Est. Patient 14:03:08 CDT Daniele Mcfadden [facility] CPT-18403 Level 3 Est. Patient 11:26:19 CDT Margarito Kelley MD [facility] CPT-54377 Level 2 Est. Patient 15:32:04 DATABASE OPERATOR Daniele Mcfadden [facility] CPT-64935 Level 3 Est. Patient 16:01:26 DATABASE OPERATOR Daniele Mcfadden [facility] CPT-33173 Level 3 Est. Patient 06:37:10 DATABASE OPERATOR Daniele Mcfadden [facility] Procedures Code Procedure Name Date Entry Date Standard Description CPT-37780 Abd compl w upright 12:34:39 CDT CPT-39691 Immunization Single Admin 11:38:41 CDT CPT-08554 Fluzone Quadrivalent Intramuscular Suspension 0.5 ML 11: 38:41 CDT CPT-OV Office Visit 14:45:12 DATABASE OPERATOR CPT-63967 [employer] all organs plus proximal aorta and distal IVC 2012 12:13:02 DATABASE OPERATOR CPT-71672 Abd compl w upright 15:12:58 DATABASE OPERATOR CPT-90601 Venipuncture Draw Fee 14:38:32 DATABASE OPERATOR CPT-89680 Administration single or combination vaccine inc oral 17 :10:04 CDT CPT-22964 Gardasil 17:10:04 CDT CPT-38540 Venipuncture Draw Fee 16:07:54 DATABASE OPERATOR CPT-87223 Administration 2+ single or combination vaccines inc oral 17:22:02 CDT CPT-47496 Administration single or combination vaccine inc oral 17 :22:02 CDT CPT-19821 Influenza split virus > age 3 17:22:02 CDT CPT-40589 Gardasil 17:22:02 CDT CPT-30112 Administration 2+ single or combination vaccines inc oral 14:38:31 CDT CPT-57737 Administration single or combination vaccine inc oral 14 :38:31 CDT CPT-57174 Meningococcal Conjugate Vacine (Menactra) 14:38:31 CDT CPT-09860 Gardasil 14:38:31 CDT
--- OUTSIDE RECORDS SUMMARY | 2018-02-15 07:23 | XMS REPORT | Clinical Summary ---
[...] 5, 1 pill on day 6 METHYLPREDNISOLONE 78276638133 No Longer Active Annita Mejia MD PhD Active ZITHROMAX Z-MARY 250 MG TABS 2 today and then 1 daily for 4 days AZITHROMYCIN 45840257484 No Longer Active Annita Mejia MD PhD Active GUAIFENESIN-CODEINE 100-10 MG/5ML SYRP 5ml every 4 to 6 hours as needed for cough GUAIFENESIN-CODEINE 92654121064 No Longer Active Annita Mejia MD PhD Active FLONASE 50 MCG/ACT SUSP 1 spray each nostril am and hs FLUTICASONE PROPIONATE 91537736022 No Longer Active Kendell Coronado MD Active MELOXICAM 15 MG TABS 1 po q day for pain with food MELOXICAM 03230721931 No Longer Active Kendell Coronado MD Active HYDROCODONE-ACETAMINOPHEN 5-325 MG TABS 1-2 q 4-6 hrs prn pain 20 tabs 07/04 HYDROCODONE-ACETAMINOPHEN 48978274402 No Longer Active Daniele Mcfadden DO Active PREDNISONE 20 MG TAB 1 tablet twice daily for 2 days, then 1 tablet once daily for 2 days PREDNISONE 53988921184 No Longer Active Daniele Mcfadden DO Active PREDNISONE 20 MG TAB 1 po bid 2 days, then daily for 2 days 12/27 PREDNISONE 67727717136 No Longer Active Alexander LOPEZ Active AZITHROMYCIN 250 MG TABS 2 po qd x 1 day, then 1 po qd x 4 days AZITHROMYCIN 69786273246 No Longer Active Daniele Mcfadden DO Active MUCINEX MAXIMUM STRENGTH EF15L-JRH 1 po qd GUAIFENESIN XR12H- TAB 91478233178 No Longer Active Daniele Mcfadden DO Active AZITHROMYCIN 250 MG TABS 2 po qd x 1 day, then 1 po qd x 4 days AZITHROMYCIN 18819425963 No Longer Active Margarito Kelley MD Active PROAIR HFA 108 (90 BASE) MCG/ACT AERS 2 puffs every 4 hours as needed ALBUTEROL SULFATE 25738606929 Active Mckenna Cabreraum CARD TAPE CONVERTER OPERATOR Active E-Z SPACER ERIBERTO use with proair inhalier every 4 times as need. SPACER/ AERO-HOLDING CHAMBERS 01985320143 Active Mckenna Cabreraum CARD TAPE CONVERTER OPERATOR Active IRVING-D ALLERGY & CONGESTION CS05J-FQK 1 po bid FEXOFENADINE -PSEUDOEPHEDRINE BQ99N-LOO 91235649127 Active Daniele Mcfadden DO Active MUCINEX MAXIMUM STRENGTH BT82V-DZB 1 po qd MUCINEX MAXIMUM STRENGTH TD76W-APD GUAIFENESIN GK28P-FKW Inactive PREDNISONE 20 MG TAB 1 po bid 2 days, then daily for 2 days 12/27 PREDNISONE 20 MG TAB 349408 PREDNISONE Inactive PREDNISONE 20 MG TAB 1 tablet twice daily for 2 days, then 1 tablet once daily for 2 days PREDNISONE 20 MG TAB 383973 PREDNISONE Inactive HYDROCODONE-ACETAMINOPHEN 5-325 MG TABS 1-2 q 4-6 hrs prn pain 20 tabs 07/04 HYDROCODONE-ACETAMINOPHEN 5-325 MG TABS 586192 HYDROCODONE- ACETAMINOPHEN Inactive MELOXICAM 15 MG TABS 1 po q day for pain with food MELOXICAM 15 MG TABS 699869 MELOXICAM Inactive FLONASE 50 MCG/ACT SUSP 1 spray each nostril am and hs FLONASE 50 MCG/ACT SUSP 738040 FLUTICASONE PROPIONATE Inactive GUAIFENESIN-CODEINE 100-10 MG/5ML SYRP 5ml every 4 to 6 hours as needed for cough GUAIFENESIN-CODEINE 100-10 MG/5ML SYRP 125343 GUAIFENESIN-CODEINE Inactive ZITHROMAX Z-MARY 250 MG TABS 2 today and then 1 daily for 4 days ZITHROMAX Z-MARY 250 MG TABS 0142747 AZITHROMYCIN Inactive AZITHROMYCIN 250 MG TABS 2 po qd x 1 day, then 1 po qd x 4 days AZITHROMYCIN 250 MG TABS 6187456 AZITHROMYCIN Inactive AZITHROMYCIN 250 MG TABS 2 po qd x 1 day, then 1 po qd x 4 days AZITHROMYCIN 250 MG TABS 6426453 AZITHROMYCIN Inactive MEDROL (MARY) 4 MG TABS [...] Fluvirin, Fluarix, Agriflu(>=18 yo)) Fluzone (>3 yrs.) [[id number]] Influenza, seasonal, injectable Human Papillomavirus Vaccine (Gardasil) #1 Given (HPV #1) Gardasil [CVX62] human papilloma virus vaccine, quadrivalent hepatitis A immunization #2 Havrix-Pedi hepatitis A vaccine, unspecified formulation Combined Jvqkctcoav-Kxywiqp-akjbuhwpb Pertussis (dTpa) Vaccine - Booster 12/02 Boostrix [[id number]] tetanus toxoid, reduced diphtheria toxoid, and acellular [...] unspecified formulation MMR virus immunization #1 MMR DPT immunization #3 [...] immunization #1 DTaP hepatitis B vaccine #2 Historical hepatitis B vaccine, unspecified formulation hepatitis [...] temperature weight E&M 165 [lb_av] Weight Measured Diagnostic Results Date Name Value Unit Range Description Immunizations: TB Skin Test - Challenge tests PPD results in mm 0 mm Lab Report: CBC W/DIFF, Comp. Metabolic Panel, UADIP W/MICRO, AUTO - Chemistry protein, total urine random Negative mg/dL Negative RBC, urine, dipstick Negative Negative sodium, serum 136 mmol/L 498-509 8001/10/31 potassium, serum 4.4 mmol/L 3.5-5.2 chloride, serum [...] 5.0-8.5 Encounters Code Encounter Date Provider Facility CPT-97568 Level 3 Est. Patient 12:19:42 CDT Daniele Mcfadden [facility] CPT-85856 Level 3 Est. Patient 11:08:45 CDT Annita Mejia MD PhD [facility] CPT-17030 Level 3 Est. Patient 12:00:17 CDT Kendell Coronado MD [facility] CPT-01950 Level 3 Est. Patient 12:27:25 CDT Daniele Mcfadden [facility] CPT-15838 Level 3 Est. Patient 18:45:11 RN DOCUMENTATION Daniele Mcfadden [facility] CPT-45419 Level 3 Est. Patient 10:12:24 RN DOCUMENTATION Daniele Mcfadden [facility] CPT-28119 Level 3 Est. Patient 14:35:11 RN DOCUMENTATION Daniele Mcfadden [facility] CPT-12560 Level 3 Est. Patient 14:11:04 CDT Daniele Mcfadden [facility] CPT-74256 Level 3 Est. Patient 10:52:13 CDT Alexander LOPEZ [facility] CPT-95550 Level 3 Est. Patient 11:01:08 RN DOCUMENTATION Daniele Mcfadden [facility] CPT-58929 Level 3 Est. Patient 10:55:35 CDT Daniele Mcfadden [facility] CPT-85113 Level 3 Est. Patient 14:03:08 CDT Daniele Mcfadden [facility] CPT-57140 Level 3 Est. Patient 11:26:19 CDT Margarito Kelley MD [facility] CPT-59048 Level 2 Est. Patient 15:32:04 RN DOCUMENTATION Daniele Mcfadden [facility] CPT-21096 Level 3 Est. Patient 16:01:26 RN DOCUMENTATION Daniele Salter Bogdan [facility] CPT-76886 Level 3 Est. Patient 06:37:10 RN DOCUMENTATION Daniele Gaetano Bogdan [facility] Procedures Code Procedure Name Date Entry Date Standard Description CPT-12042 Abd compl w upright 12:34:39 CDT CPT-49202 Immunization Single Admin 11:38:41 CDT CPT-77201 Fluzone Quadrivalent Intramuscular Suspension 0.5 ML 11: 38:41 CDT CPT-OV Office Visit 14:45:12 RN DOCUMENTATION CPT-77946 [employer] all organs plus proximal aorta and distal IVC 2012 12:13:02 RN DOCUMENTATION CPT-32038 Abd compl w upright 15:12:58 RN DOCUMENTATION CPT-13289 Venipuncture Draw Fee 14:38:32 RN DOCUMENTATION CPT-91618 Administration single or combination vaccine inc oral 17 :10:04 CDT CPT-44449 Gardasil 17:10:04 CDT CPT-18455 Venipuncture Draw Fee 16:07:54 RN DOCUMENTATION CPT-66140 Administration 2+ single or combination vaccines inc oral 17:22:02 CDT CPT-50145 Administration single or combination vaccine inc oral 17 :22:02 CDT CPT-29992 Influenza split virus > age 3 17:22:02 CDT CPT-60798 Gardasil 17:22:02 CDT CPT-85401 Administration 2+ single or combination vaccines inc oral 14:38:31 CDT CPT-82895 Administration single or combination vaccine inc oral 14 :38:31 CDT CPT-18880 Meningococcal Conjugate Vacine (Menactra) 14:38:31 CDT CPT-63207 Gardasil 14:38:31 CDT
--- OUTSIDE RECORDS SUMMARY | 2018-02-15 07:24 | XMS REPORT | Clinical Summary ---
[...] 5, 1 pill on day 6 METHYLPREDNISOLONE [id number] No Longer Active Annita Mejia MD PhD Active ZITHROMAX Z-MARY 250 MG TABS 2 today and then 1 daily for 4 days AZITHROMYCIN 73274764100 No Longer Active Annita Mejia MD PhD Active GUAIFENESIN-CODEINE 100-10 MG/5ML SYRP 5ml every 4 to 6 hours as needed for cough GUAIFENESIN-CODEINE 44817575038 No Longer Active Annita Mejia MD PhD Active FLONASE 50 MCG/ACT SUSP 1 spray each nostril am and hs FLUTICASONE PROPIONATE 11474157922 No Longer Active Kendell oCronado MD Active MELOXICAM 15 MG TABS 1 po q day for pain with food MELOXICAM 89906895411 No Longer Active Kendell Coronado MD Active HYDROCODONE-ACETAMINOPHEN 5-325 MG TABS 1-2 q 4-6 hrs prn pain 20 tabs 07/04 HYDROCODONE-ACETAMINOPHEN 16975155004 No Longer Active Daniele Mcfadden DO Active PREDNISONE 20 MG TAB 1 tablet twice daily for 2 days, then 1 tablet once daily for 2 days PREDNISONE 77992257251 No Longer Active Daniele Mcfadden DO Active PREDNISONE 20 MG TAB 1 po bid 2 days, then daily for 2 days 12/27 PREDNISONE 26672801480 No Longer Active Alexnader LOPEZ Active AZITHROMYCIN 250 MG TABS 2 po qd x 1 day, then 1 po qd x 4 days AZITHROMYCIN 98608441633 No Longer Active Daniele Mcfadden DO Active MUCINEX MAXIMUM STRENGTH [id number]-[id number] 1 po qd GUAIFENESIN XR12H- TAB 91973926869 No Longer Active Daniele Mcfadden DO Active AZITHROMYCIN 250 MG TABS 2 po qd x 1 day, then 1 po qd x 4 days AZITHROMYCIN 52976540087 No Longer Active Margarito Kelley MD Active PROAIR HFA 108 (90 BASE) MCG/ACT AERS 2 puffs every 4 hours as needed ALBUTEROL SULFATE 59914803157 Active Mckenna Cabreraum RN NEUROLOGY Active E-Z SPACER ERIBERTO use with proair inhalier every 4 times as need. SPACER/ AERO-HOLDING CHAMBERS 77609230365 Active Mckenna Cabreraum RN NEUROLOGY Active IRVING-D ALLERGY & CONGESTION RL58A-FAO 1 po bid FEXOFENADINE -PSEUDOEPHEDRINE QK92S-MQP 74468244179 Active Daniele Mcfadden DO Active MUCINEX MAXIMUM STRENGTH XL90Q-KZP 1 po qd MUCINEX MAXIMUM STRENGTH DB70B-EMI GUAIFENESIN SY02Q-MZS Inactive PREDNISONE 20 MG TAB 1 po bid 2 days, then daily for 2 days 12/27 PREDNISONE 20 MG TAB 445263 PREDNISONE Inactive PREDNISONE 20 MG TAB 1 tablet twice daily for 2 days, then 1 tablet once daily for 2 days PREDNISONE 20 MG TAB 138321 PREDNISONE Inactive HYDROCODONE-ACETAMINOPHEN 5-325 MG TABS 1-2 q 4-6 hrs prn pain 20 tabs 07/04 HYDROCODONE-ACETAMINOPHEN 5-325 MG TABS 282551 HYDROCODONE- ACETAMINOPHEN Inactive MELOXICAM 15 MG TABS 1 po q day for pain with food MELOXICAM 15 MG TABS 346343 MELOXICAM Inactive FLONASE 50 MCG/ACT SUSP 1 spray each nostril am and hs FLONASE 50 MCG/ACT SUSP 312072 FLUTICASONE PROPIONATE Inactive GUAIFENESIN-CODEINE 100-10 MG/5ML SYRP 5ml every 4 to 6 hours as needed for cough GUAIFENESIN-CODEINE 100-10 MG/5ML SYRP 587021 GUAIFENESIN-CODEINE Inactive ZITHROMAX Z-MARY 250 MG TABS 2 today and then 1 daily for 4 days ZITHROMAX Z-MARY 250 MG TABS 4435513 AZITHROMYCIN Inactive AZITHROMYCIN 250 MG TABS 2 po qd x 1 day, then 1 po qd x 4 days AZITHROMYCIN 250 MG TABS 1123882 AZITHROMYCIN Inactive AZITHROMYCIN 250 MG TABS 2 po qd x 1 day, then 1 po qd x 4 days AZITHROMYCIN 250 MG TABS 2513599 AZITHROMYCIN Inactive MEDROL (MARY) 4 MG TABS [...] Fluvirin, Fluarix, Agriflu(>=18 yo)) Fluzone (>3 yrs.) [[id number]] Influenza, seasonal, injectable Human Papillomavirus vaccine (Gardasil) #2, (HPV #2) Gardasil [ CVX62] human papilloma virus vaccine, quadrivalent Human Papillomavirus Vaccine (Gardasil) #1 Given (HPV #1) Gardasil [CVX62] human papilloma virus vaccine, quadrivalent hepatitis A immunization #2 Havrix-Pedi hepatitis A vaccine, unspecified formulation Combined Rrzqxzkqvt-Uzregfo-lhqfzwebt Pertussis (dTpa) Vaccine - Booster 12/02 Boostrix [[id number]] tetanus toxoid, reduced diphtheria toxoid, and acellular [...] Negative mg/dL Negative sodium, serum 142 mmol/L 331-471 8867/11/12 potassium, serum 4.1 mmol/L 3.5-5.2 chloride, serum [...] % 11.6-14.8 platelet count 212 10^3/MM^3 10*3/mm3 414-629 4800/11/12 mean corpuscular volume, RBC 88 fL 80-97 [...] 5.0-8.5 Encounters Code Encounter Date Provider Facility CPT-64901 Level 3 Est. Patient 12:19:42 CDT Daniele Mcfadden [facility] CPT-52763 Level 3 Est. Patient 11:08:45 CDT Annita Mejia MD PhD [facility] CPT-04367 Level 3 Est. Patient 12:00:17 CDT Kendell Coronado MD [facility] CPT-19653 Level 3 Est. Patient 12:27:25 CDT Daniele Mcfadden [facility] CPT-31767 Level 3 Est. Patient 18:45:11 CARTOGRAPHIC AIDE Daniele Mcfadden [facility] CPT-87749 Level 3 Est. Patient 10:12:24 CARTOGRAPHIC AIDE Daniele Mcfadden [facility] CPT-46422 Level 3 Est. Patient 14:35:11 CARTOGRAPHIC AIDE Daniele Mcfadden [facility] CPT-08130 Level 3 Est. Patient 14:11:04 CDT Daniele Mcfadden [facility] CPT-66149 Level 3 Est. Patient 10:52:13 CDT Alexander LOPEZ [facility] CPT-84366 Level 3 Est. Patient 11:01:08 CARTOGRAPHIC AIDE Daniele Mcfadden [facility] CPT-66696 Level 3 Est. Patient 10:55:35 CDT Daniele Mcfadden [facility] CPT-46455 Level 3 Est. Patient 14:03:08 CDT Daniele Mcfadden [facility] CPT-22832 Level 3 Est. Patient 11:26:19 CDT Margarito Kelley MD [facility] CPT-07698 Level 2 Est. Patient 15:32:04 CARTOGRAPHIC AIDE Daniele Mcfadden [facility] CPT-62852 Level 3 Est. Patient 16:01:26 CARTOGRAPHIC AIDE Daniele Mcfadden [facility] CPT-48075 Level 3 Est. Patient 06:37:10 CARTOGRAPHIC AIDE Daniele Mcfadden [facility] Procedures Code Procedure Name Date Entry Date Standard Description CPT-37309 Abd compl w upright 12:34:39 CDT CPT-52868 Immunization Single Admin 11:38:41 CDT CPT-06865 Fluzone Quadrivalent Intramuscular Suspension 0.5 ML 11: 38:41 CDT CPT-OV Office Visit 14:45:12 CARTOGRAPHIC AIDE CPT-18218 [employer] all organs plus proximal aorta and distal IVC 2012 12:13:02 CARTOGRAPHIC AIDE CPT-13810 Abd compl w upright 15:12:58 CARTOGRAPHIC AIDE CPT-76504 Venipuncture Draw Fee 14:38:32 CARTOGRAPHIC AIDE CPT-53800 Administration single or combination vaccine inc oral 17 :10:04 CDT CPT-79268 Gardasil 17:10:04 CDT CPT-40906 Venipuncture Draw Fee 16:07:54 CARTOGRAPHIC AIDE CPT-82532 Administration 2+ single or combination vaccines inc oral 17:22:02 CDT CPT-61052 Administration single or combination vaccine inc oral 17 :22:02 CDT CPT-85426 Influenza split virus > age 3 17:22:02 CDT CPT-28435 Gardasil 17:22:02 CDT CPT-40588 Administration 2+ single or combination vaccines inc oral 14:38:31 CDT CPT-10391 Administration single or combination vaccine inc oral 14 :38:31 CDT CPT-21631 Meningococcal Conjugate Vacine (Menactra) 14:38:31 CDT CPT-33603 Gardasil 14:38:31 CDT
--- OUTSIDE RECORDS SUMMARY | 2018-02-15 07:25 | XMS REPORT | Clinical Summary ---
Author Author Admin, OLEG Organization [facility] Address [...] for prophylactic vaccination and inoculation against influenza ALLERGIC RHINITIS ICD-477.9 Inactive Errol Pack MD [...] 5, 1 pill on day 6 METHYLPREDNISOLONE 74195257680 No Longer Active Annita Mejia MD PhD Active ZITHROMAX Z-MARY 250 MG TABS 2 today and then 1 daily for 4 days AZITHROMYCIN 28418686161 No Longer Active Annita Mejia MD PhD Active GUAIFENESIN-CODEINE 100-10 MG/5ML SYRP 5ml every 4 to 6 hours as needed for cough GUAIFENESIN-CODEINE 16976956285 No Longer Active Annita Mejia MD PhD Active FLONASE 50 MCG/ACT SUSP 1 spray each nostril am and hs FLUTICASONE PROPIONATE 11642170218 No Longer Active Kendell Coronado MD Active MELOXICAM 15 MG TABS 1 po q day for pain with food MELOXICAM 79967232462 No Longer Active Kendell Coronado MD Active HYDROCODONE-ACETAMINOPHEN 5-325 MG TABS 1-2 q 4-6 hrs prn pain 20 tabs 07/04 HYDROCODONE-ACETAMINOPHEN 97120275563 No Longer Active Daniele Mcfadden DO Active PREDNISONE 20 MG TAB 1 tablet twice daily for 2 days, then 1 tablet once daily for 2 days PREDNISONE 82538599831 No Longer Active Daniele Mcfadden DO Active PREDNISONE 20 MG TAB 1 po bid 2 days, then daily for 2 days 12/27 PREDNISONE 96961778535 No Longer Active Alexander LOPEZ Active AZITHROMYCIN 250 MG TABS 2 po qd x 1 day, then 1 po qd x 4 days AZITHROMYCIN 01386453755 No Longer Active Daniele Mcfadden DO Active MUCINEX MAXIMUM STRENGTH [id number]-VPF 1 po qd GUAIFENESIN XR12H- TAB 59959585957 No Longer Active Daniele Mcfadden DO Active AZITHROMYCIN 250 MG TABS 2 po qd x 1 day, then 1 po qd x 4 days AZITHROMYCIN 43622859899 No Longer Active Margarito Kelley MD Active PROAIR HFA 108 (90 BASE) MCG/ACT AERS 2 puffs every 4 hours as needed ALBUTEROL SULFATE 85545155902 Active Mckenna Mayo LPN Active E-Z SPACER ERIBERTO use with proair inhalier every 4 times as need. SPACER/ AERO-HOLDING CHAMBERS 64838520608 Active Mckenna aCbreraum GLUE DRIER OPERATOR Active IRVING-D ALLERGY & CONGESTION JR87O-GPD 1 po bid FEXOFENADINE -PSEUDOEPHEDRINE FO90V-JJU 89248136392 Active Daniele Mcfadden DO Active MUCINEX MAXIMUM STRENGTH NQ28I-PLK 1 po qd MUCINEX MAXIMUM STRENGTH UI78A-KLS GUAIFENESIN GE72X-PET Inactive PREDNISONE 20 MG TAB 1 po bid 2 days, then daily for 2 days 12/27 PREDNISONE 20 MG TAB 226938 PREDNISONE Inactive PREDNISONE 20 MG TAB 1 tablet twice daily for 2 days, then 1 tablet once daily for 2 days PREDNISONE 20 MG TAB 704706 PREDNISONE Inactive HYDROCODONE-ACETAMINOPHEN 5-325 MG TABS 1-2 q 4-6 hrs prn pain 20 tabs 07/04 HYDROCODONE-ACETAMINOPHEN 5-325 MG TABS 139302 HYDROCODONE- ACETAMINOPHEN Inactive MELOXICAM 15 MG TABS 1 po q day for pain with food MELOXICAM 15 MG TABS 511887 MELOXICAM Inactive FLONASE 50 MCG/ACT SUSP 1 spray each nostril am and hs FLONASE 50 MCG/ACT SUSP 927931 FLUTICASONE PROPIONATE Inactive GUAIFENESIN-CODEINE 100-10 MG/5ML SYRP 5ml every 4 to 6 hours as needed for cough GUAIFENESIN-CODEINE 100-10 MG/5ML SYRP 783466 GUAIFENESIN-CODEINE Inactive ZITHROMAX Z-MARY 250 MG TABS 2 today and then 1 daily for 4 days ZITHROMAX Z-MARY 250 MG TABS 1717956 AZITHROMYCIN Inactive AZITHROMYCIN 250 MG TABS 2 po qd x 1 day, then 1 po qd x 4 days AZITHROMYCIN 250 MG TABS 3255177 AZITHROMYCIN Inactive AZITHROMYCIN 250 MG TABS 2 po qd x 1 day, then 1 po qd x 4 days AZITHROMYCIN 250 MG TABS 3354935 AZITHROMYCIN Inactive MEDROL (MARY) 4 MG TABS [...] Fluvirin, Fluarix, Agriflu(>=18 yo)) Fluzone (>3 yrs.) [[id number]] Influenza, seasonal, injectable Human Papillomavirus Vaccine (Gardasil) #1 Given (HPV #1) Gardasil [CVX62] human papilloma virus vaccine, quadrivalent hepatitis A immunization #2 Havrix-Pedi hepatitis A vaccine, unspecified formulation Combined Dxfpqwdjya-Sdmuric-kjxvtaqie Pertussis (dTpa) Vaccine - Booster 12/02 Boostrix [[id number]] tetanus toxoid, reduced diphtheria toxoid, and acellular [...] AUTO - Chemistry sodium, serum 142 mmol/L 261-506 5563/11/12 potassium, serum 4.1 mmol/L 3.5-5.2 chloride, serum [...] Metabolic Panel, UADIP W/MICRO, AUTO - Hematology platelet count 212 10^3/MM^3 10*3/mm3 117-481 9536/11/12 red blood cell distribution width 13.8 % 11.6-14.8 mean corpuscular hemoglobin concentration, RBC 32.3 G/DL % 31.8- 35.4 mean corpuscular hemoglobin, RBC 28.5 pg 27.0-31.2 mean corpuscular volume, RBC 88 [...] 5.0-8.5 Encounters Code Encounter Date Provider Facility CPT-07131 Level 3 Est. Patient 11:08:45 CDT Annita Mejia MD PhD [facility]-17402 Level 3 Est. Patient 12:00:17 CDT Kendell Coronado MD [facility]-95191 Level 3 Est. Patient 12:27:25 CDT Daniele Mcfadden [facility] CPT-34512 Level 3 Est. Patient 18:45:11 CAN CONVEYOR FEEDER Daniele Mcfadden [facility] CPT-54399 Level 3 Est. Patient 10:12:24 CAN CONVEYOR FEEDER Daniele Mcfadden [facility] CPT-26871 Level 3 Est. Patient 14:35:11 CAN CONVEYOR FEEDER Daniele Mcfadden [facility] CPT-60116 Level 3 Est. Patient 14:11:04 CDT Daniele Mcfadden [facility] CPT-47460 Level 3 Est. Patient 10:52:13 CDT Alexander LOPEZ [facility] CPT-70281 Level 3 Est. Patient 11:01:08 CAN CONVEYOR FEEDER Daniele Mcfadden [facility] CPT-66006 Level 3 Est. Patient 10:55:35 CDT Daniele Mcfadden [facility] CPT-39881 Level 3 Est. Patient 14:03:08 CDT Daniele Mcafdden [facility] CPT-55054 Level 3 Est. Patient 11:26:19 CDT Margarito Kelley MD [facility] CPT-03352 Level 2 Est. Patient 15:32:04 CAN CONVEYOR FEEDER Daniele Salter Bogdan [facility] CPT-02036 Level 3 Est. Patient 16:01:26 CAN CONVEYOR FEEDER Daniele Salter Bogdan [facility] CPT-89517 Level 3 Est. Patient 06:37:10 CAN CONVEYOR FEEDER Daniele Mcfadden [facility] Procedures Code Procedure Name Date Entry Date Standard Description CPT-97778 Immunization Single Admin 11:38:41 CDT CPT-33834 Fluzone Quadrivalent Intramuscular Suspension 0.5 ML 11: 38:41 CDT CPT-OV Office Visit 14:45:12 CAN CONVEYOR FEEDER CPT-39605 [employer] all organs plus proximal aorta and distal IVC 2012 12:13:02 CAN CONVEYOR FEEDER CPT-19694 Abd compl w upright 15:12:58 CAN CONVEYOR FEEDER CPT-75111 Venipuncture Draw Fee 14:38:32 CAN CONVEYOR FEEDER CPT-84133 Administration single or combination vaccine inc oral 17 :10:04 CDT CPT-48096 Gardasil 17:10:04 CDT CPT-11124 Venipuncture Draw Fee 16:07:54 CAN CONVEYOR FEEDER CPT-19231 Administration 2+ single or combination vaccines inc oral 17:22:02 CDT CPT-44104 Administration single or combination vaccine inc oral 17 :22:02 CDT CPT-75879 Influenza split virus > age 3 17:22:02 CDT CPT-09858 Gardasil 17:22:02 CDT CPT-62057 Administration 2+ single or combination vaccines inc oral 14:38:31 CDT CPT-43498 Administration single or combination vaccine inc oral 14 :38:31 CDT CPT-04130 Meningococcal Conjugate Vacine (Menactra) 14:38:31 CDT CPT-28014 Gardasil 14:38:31 CDT
--- OUTSIDE RECORDS SUMMARY | 2018-02-15 07:25 | XMS REPORT | Clinical Summary ---
[...] 5, 1 pill on day 6 METHYLPREDNISOLONE 70397445199 No Longer Active Annita Mejia MD PhD Active ZITHROMAX Z-MARY 250 MG TABS 2 today and then 1 daily for 4 days AZITHROMYCIN 57710893470 No Longer Active Annita Mejia MD PhD Active GUAIFENESIN-CODEINE 100-10 MG/5ML SYRP 5ml every 4 to 6 hours as needed for cough GUAIFENESIN-CODEINE 21960811890 No Longer Active Annita Mejia MD PhD Active FLONASE 50 MCG/ACT SUSP 1 spray each nostril am and hs FLUTICASONE PROPIONATE 20707144375 No Longer Active Kendell Coronado MD Active MELOXICAM 15 MG TABS 1 po q day for pain with food MELOXICAM 91230543437 No Longer Active Kendell Coronado MD Active HYDROCODONE-ACETAMINOPHEN 5-325 MG TABS 1-2 q 4-6 hrs prn pain 20 tabs 07/04 HYDROCODONE-ACETAMINOPHEN 53846597585 No Longer Active Daniele Mcfadden DO Active PREDNISONE 20 MG TAB 1 tablet twice daily for 2 days, then 1 tablet once daily for 2 days PREDNISONE 27942172193 No Longer Active Daniele Mcfadden DO Active PREDNISONE 20 MG TAB 1 po bid 2 days, then daily for 2 days 12/27 PREDNISONE 52349091579 No Longer Active Alexander LOPEZ Active AZITHROMYCIN 250 MG TABS 2 po qd x 1 day, then 1 po qd x 4 days AZITHROMYCIN 59425329260 No Longer Active Daniele Mcfadden DO Active MUCINEX MAXIMUM STRENGTH QM82H-BBY 1 po qd GUAIFENESIN XR12H- TAB 02368432716 No Longer Active Daniele Mcfadden DO Active AZITHROMYCIN 250 MG TABS 2 po qd x 1 day, then 1 po qd x 4 days AZITHROMYCIN 26809272736 No Longer Active Margarito Kelley MD Active PROAIR HFA 108 (90 BASE) MCG/ACT AERS 2 puffs every 4 hours as needed ALBUTEROL SULFATE 68424334210 Active Mckenna Cabreraum TURN MACHINE OPERATOR Active E-Z SPACER ERIBERTO use with proair inhalier every 4 times as need. SPACER/ AERO-HOLDING CHAMBERS 99961973916 Active Mckenna Mayo TURN MACHINE OPERATOR Active IRVING-D ALLERGY & CONGESTION [id number]-TUY 1 po bid FEXOFENADINE -PSEUDOEPHEDRINE VK47Z-OLU 96010833495 Active Daniele Mcfadden DO Active MUCINEX MAXIMUM STRENGTH OS57C-LCE 1 po qd MUCINEX MAXIMUM STRENGTH HW89C-TTQ GUAIFENESIN FH43B-RLH Inactive PREDNISONE 20 MG TAB 1 po bid 2 days, then daily for 2 days 12/27 PREDNISONE 20 MG TAB 161992 PREDNISONE Inactive PREDNISONE 20 MG TAB 1 tablet twice daily for 2 days, then 1 tablet once daily for 2 days PREDNISONE 20 MG TAB 700820 PREDNISONE Inactive HYDROCODONE-ACETAMINOPHEN 5-325 MG TABS 1-2 q 4-6 hrs prn pain 20 tabs 07/04 HYDROCODONE-ACETAMINOPHEN 5-325 MG TABS 887764 HYDROCODONE- ACETAMINOPHEN Inactive MELOXICAM 15 MG TABS 1 po q day for pain with food MELOXICAM 15 MG TABS 329667 MELOXICAM Inactive FLONASE 50 MCG/ACT SUSP 1 spray each nostril am and hs FLONASE 50 MCG/ACT SUSP 038403 FLUTICASONE PROPIONATE Inactive GUAIFENESIN-CODEINE 100-10 MG/5ML SYRP 5ml every 4 to 6 hours as needed for cough GUAIFENESIN-CODEINE 100-10 MG/5ML SYRP 713013 GUAIFENESIN-CODEINE Inactive ZITHROMAX Z-MARY 250 MG TABS 2 today and then 1 daily for 4 days ZITHROMAX Z-MARY 250 MG TABS 4753649 AZITHROMYCIN Inactive AZITHROMYCIN 250 MG TABS 2 po qd x 1 day, then 1 po qd x 4 days AZITHROMYCIN 250 MG TABS 9907250 AZITHROMYCIN Inactive AZITHROMYCIN 250 MG TABS 2 po qd x 1 day, then 1 po qd x 4 days AZITHROMYCIN 250 MG TABS 4141666 AZITHROMYCIN Inactive MEDROL (MARY) 4 MG TABS [...] Fluvirin, Fluarix, Agriflu(>=18 yo)) Fluzone (>3 yrs.) [[id number]] Influenza, seasonal, injectable Human Papillomavirus Vaccine (Gardasil) #1 Given (HPV #1) Gardasil [CVX62] human papilloma virus vaccine, quadrivalent hepatitis A immunization #2 Havrix-Pedi hepatitis A vaccine, unspecified formulation Combined Jxokonvvkb-Ictfzaz-vkkelqtjs Pertussis (dTpa) Vaccine - Booster 12/02 Boostrix [[id number]] tetanus toxoid, reduced diphtheria toxoid, and acellular [...] AUTO - Chemistry sodium, serum 142 mmol/L 458-060 8745/11/12 potassium, serum 4.1 mmol/L 3.5-5.2 chloride, serum [...] 5.0-8.5 Encounters Code Encounter Date Provider Facility CPT-43665 Level 3 Est. Patient 11:08:45 CDT Annita Mejia MD PhD [facility] CPT-21288 Level 3 Est. Patient 12:00:17 CDT Kendell Coronado MD [facility] CPT-46078 Level 3 Est. Patient 12:27:25 CDT Daniele Mcfadden [facility] CPT-74716 Level 3 Est. Patient 18:45:11 CAROUSEL ATTENDANT Daniele Mcfadden [facility] CPT-70788 Level 3 Est. Patient 10:12:24 CAROUSEL ATTENDANT Daniele Mcfadden [facility] CPT-04848 Level 3 Est. Patient 14:35:11 CAROUSEL ATTENDANT Daniele Mcfadden [facility] CPT-95042 Level 3 Est. Patient 14:11:04 CDT Daniele Mcfadden [facility] CPT-51458 Level 3 Est. Patient 10:52:13 CDT Alexander LOPEZ [facility] CPT-15261 Level 3 Est. Patient 11:01:08 CAROUSEL ATTENDANT Daniele Mcfadden [facility] CPT-78366 Level 3 Est. Patient 10:55:35 CDT Daniele Mcfadden [facility] CPT-02742 Level 3 Est. Patient 14:03:08 CDT Daniele Mcfadden [facility] CPT-54675 Level 3 Est. Patient 11:26:19 CDT Margarito Kelley MD [facility] CPT-20632 Level 2 Est. Patient 15:32:04 CAROUSEL ATTENDANT Daniele Mcfadden [facility] CPT-91419 Level 3 Est. Patient 16:01:26 CAROUSEL ATTENDANT Daniele Mcfadden [facility] CPT-83877 Level 3 Est. Patient 06:37:10 CAROUSEL ATTENDANT Daniele Mcfadden DO [facility] Procedures Code Procedure Name Date Entry Date Standard Description CPT-OV Office Visit 14:45:12 CAROUSEL ATTENDANT CPT-51106 [employer] all organs plus proximal aorta and distal IVC 2012 12:13:02 CAROUSEL ATTENDANT CPT-12311 Abd compl w upright 15:12:58 CAROUSEL ATTENDANT CPT-73947 Venipuncture Draw Fee 14:38:32 CAROUSEL ATTENDANT CPT-81135 Administration single or combination vaccine inc oral 17 :10:04 CDT CPT-35159 Gardasil 17:10:04 CDT CPT-06811 Venipuncture Draw Fee 16:07:54 CAROUSEL ATTENDANT CPT-93362 Administration 2+ single or combination vaccines inc oral 17:22:02 CDT CPT-12613 Administration single or combination vaccine inc oral 17 :22:02 CDT CPT-71003 Influenza split virus > age 3 17:22:02 CDT CPT-74481 Gardasil 17:22:02 CDT CPT-37810 Administration 2+ single or combination vaccines inc oral 14:38:31 CDT CPT-49414 Administration single or combination vaccine inc oral 14 :38:31 CDT CPT-97784 Meningococcal Conjugate Vacine (Menactra) 14:38:31 CDT CPT-21048 Gardasil 14:38:31 CDT
--- OUTSIDE RECORDS SUMMARY | 2018-02-15 07:26 | XMS REPORT | Clinical Summary ---
Author Author Admin, OLEG Organization [facility] Address Unknown Phone Unavailable Allergies, Adverse [...] 5, 1 pill on day 6 METHYLPREDNISOLONE [id number] No Longer Active Annita Mejia MD PhD Active ZITHROMAX Z-MARY 250 MG TABS 2 today and then 1 daily for 4 days AZITHROMYCIN 72434384299 No Longer Active Annita Mejia MD PhD Active GUAIFENESIN-CODEINE 100-10 MG/5ML SYRP 5ml every 4 to 6 hours as needed for cough GUAIFENESIN-CODEINE 71305330753 No Longer Active Annita Mejia MD PhD Active FLONASE 50 MCG/ACT SUSP 1 spray each nostril am and hs FLUTICASONE PROPIONATE 08544341815 No Longer Active Kendell Coronado MD Active MELOXICAM 15 MG TABS 1 po q day for pain with food MELOXICAM 63674571120 No Longer Active Kendell Coronado MD Active HYDROCODONE-ACETAMINOPHEN 5-325 MG TABS 1-2 q 4-6 hrs prn pain 20 tabs 07/04 HYDROCODONE-ACETAMINOPHEN 36587059494 No Longer Active Daniele Mcfadden DO Active PREDNISONE 20 MG TAB 1 tablet twice daily for 2 days, then 1 tablet once daily for 2 days PREDNISONE 52341046589 No Longer Active Danilee Mcfadden DO Active PREDNISONE 20 MG TAB 1 po bid 2 days, then daily for 2 days 12/27 PREDNISONE 51747190015 No Longer Active Alexander LOPEZ Active AZITHROMYCIN 250 MG TABS 2 po qd x 1 day, then 1 po qd x 4 days AZITHROMYCIN 76518595166 No Longer Active Daniele Mcfadden DO Active MUCINEX MAXIMUM STRENGTH [id number]-[id number] 1 po qd GUAIFENESIN XR12H- TAB 47063217548 No Longer Active Daniele Mcfadden DO Active AZITHROMYCIN 250 MG TABS 2 po qd x 1 day, then 1 po qd x 4 days AZITHROMYCIN 19622757271 No Longer Active Margarito Kelley MD Active PROAIR HFA 108 (90 BASE) MCG/ACT AERS 2 puffs every 4 hours as needed ALBUTEROL SULFATE 04592668631 Active Mckenna Mayo LPN Active E-Z SPACER ERIBERTO use with proair inhalier every 4 times as need. SPACER/ AERO-HOLDING CHAMBERS 40027386164 Active Mckenna Cabreraum HAT MEASURER Active IRVING-D ALLERGY & CONGESTION [id number] 1 po bid FEXOFENADINE -PSEUDOEPHEDRINE OV33E-RZT 02539331814 Active Daniele Mcfadden DO Active MUCINEX MAXIMUM STRENGTH ER83E-ZPN 1 po qd MUCINEX MAXIMUM STRENGTH [id number]-IXX GUAIFENESIN PB54O-QRD Inactive PREDNISONE 20 MG TAB 1 po bid 2 days, then daily for 2 days 12/27 PREDNISONE 20 MG TAB 647815 PREDNISONE Inactive PREDNISONE 20 MG TAB 1 tablet twice daily for 2 days, then 1 tablet once daily for 2 days PREDNISONE 20 MG TAB 783612 PREDNISONE Inactive HYDROCODONE-ACETAMINOPHEN 5-325 MG TABS 1-2 q 4-6 hrs prn pain 20 tabs 07/04 HYDROCODONE-ACETAMINOPHEN 5-325 MG TABS 782175 HYDROCODONE- ACETAMINOPHEN Inactive MELOXICAM 15 MG TABS 1 po q day for pain with food MELOXICAM 15 MG TABS 348462 MELOXICAM Inactive FLONASE 50 MCG/ACT SUSP 1 spray each nostril am and hs FLONASE 50 MCG/ACT SUSP 206403 FLUTICASONE PROPIONATE Inactive GUAIFENESIN-CODEINE 100-10 MG/5ML SYRP 5ml every 4 to 6 hours as needed for cough GUAIFENESIN-CODEINE 100-10 MG/5ML SYRP 509283 GUAIFENESIN-CODEINE Inactive ZITHROMAX Z-MARY 250 MG TABS 2 today and then 1 daily for 4 days ZITHROMAX Z-MARY 250 MG TABS 5554146 AZITHROMYCIN Inactive AZITHROMYCIN 250 MG TABS 2 po qd x 1 day, then 1 po qd x 4 days AZITHROMYCIN 250 MG TABS 2718087 AZITHROMYCIN Inactive AZITHROMYCIN 250 MG TABS 2 po qd x 1 day, then 1 po qd x 4 days AZITHROMYCIN 250 MG TABS 1066511 AZITHROMYCIN Inactive MEDROL (MARY) 4 MG TABS [...] Fluvirin, Fluarix, Agriflu(>=18 yo)) Fluzone (>3 yrs.) [[id number]] Influenza, seasonal, injectable Human Papillomavirus Vaccine (Gardasil) #1 Given (HPV #1) Gardasil [CVX62] human papilloma virus vaccine, quadrivalent hepatitis A immunization #2 Havrix-Pedi hepatitis A vaccine, unspecified formulation Combined Hqsyxphcjn-Jofihrh-vetmlbetz Pertussis (dTpa) Vaccine - Booster 12/02 Boostrix [[id number]] tetanus toxoid, reduced diphtheria toxoid, and acellular [...] Negative mg/dL Negative sodium, serum 142 mmol/L 762-387 8981/11/12 potassium, serum 4.1 mmol/L 3.5-5.2 chloride, serum [...] % 11.6-14.8 platelet count 212 10^3/MM^3 10*3/mm3 962-839 0871/11/12 mean corpuscular volume, RBC 88 fL 80-97 [...] 5.0-8.5 Encounters Code Encounter Date Provider Facility CPT-71730 Level 3 Est. Patient 11:08:45 CDT Annita Mejia MD PhD [facility]-65708 Level 3 Est. Patient 12:00:17 CDT Kendell Coronado MD [facility]-79610 Level 3 Est. Patient 12:27:25 CDT Daniele Mcfadden [facility] CPT-79023 Level 3 Est. Patient 18:45:11 [employer]REE [employer] Daniele Mcfadden [facility] CPT-36468 Level 3 Est. Patient 10:12:24 [employer] Daniele Mcfadden [facility] CPT-94156 Level 3 Est. Patient 14:35:11 [employer] Daniele Mcfadden [facility] CPT-38752 Level 3 Est. Patient 14:11:04 CDT Daniele Mcfadden [facility] CPT-80472 Level 3 Est. Patient 10:52:13 CDT Alexander LOPEZ [facility] CPT-68679 Level 3 Est. Patient 11:01:08 [employer] Daniele Mcfadden [facility] CPT-16924 Level 3 Est. Patient 10:55:35 CDT Daniele Mcfadden [facility] CPT-50435 Level 3 Est. Patient 14:03:08 CDT Daniele Mcfadden [facility] CPT-17374 Level 3 Est. Patient 11:26:19 CDT Margarito Kelley MD [facility] CPT-86556 Level 2 Est. Patient 15:32:04 [employer] Daniele Salter Bogdan [facility] CPT-12622 Level 3 Est. Patient 16:01:26 [employer] Daniele Salter Bogdan [facility] CPT-10424 Level 3 Est. Patient 06:37:10 [employer] Daniele Mcfadden [facility] Procedures Code Procedure Name Date Entry Date Standard Description CPT-46963 Immunization Single Admin 11:38:41 CDT CPT-58021 Fluzone Quadrivalent Intramuscular Suspension 0.5 ML 11: 38:41 CDT CPT-OV Office Visit 14:45:12 [employer] CPT-89654 [employer] inc all organs plus proximal aorta and distal IVC 2012 12:13:02 [employer] CPT-53666 Abd compl w upright 15:12:58 [employer] CPT-35264 Venipuncture Draw Fee 14:38:32 [employer] CPT-10325 Administration single or combination vaccine inc oral 17 :10:04 CDT CPT-21976 Gardasil 17:10:04 CDT CPT-20273 Venipuncture Draw Fee 16:07:54 [employer] CPT-06631 Administration 2+ single or combination vaccines inc oral 17:22:02 CDT CPT-97363 Administration single or combination vaccine inc oral 17 :22:02 CDT CPT-92599 Influenza split virus > age 3 17:22:02 CDT CPT-13898 Gardasil 17:22:02 CDT CPT-34930 Administration 2+ single or combination vaccines inc oral 14:38:31 CDT CPT-28740 Administration single or combination vaccine inc oral 14 :38:31 CDT CPT-26735 Meningococcal Conjugate Vacine (Menactra) 14:38:31 CDT CPT-36645 Gardasil 14:38:31 CDT
--- OUTSIDE RECORDS SUMMARY | 2018-02-15 07:27 | XMS REPORT | Clinical Summary ---
Author Author Admin, OLEG Organization [facility] Address Unknown Phone Unavailable Allergies, [...] MINUTES OR LESS 850.11 Resolved 11/26 Margarito Kellye MD Concussion with loss of consciousness of [...] 5, 1 pill on day 6 METHYLPREDNISOLONE 61443117260 No Longer Active Annita Mejia MD PhD Active ZITHROMAX Z-MARY 250 MG TABS 2 today and then 1 daily for 4 days AZITHROMYCIN 74080299378 No Longer Active Annita Mejia MD PhD Active GUAIFENESIN-CODEINE 100-10 MG/5ML SYRP 5ml every 4 to 6 hours as needed for cough GUAIFENESIN-CODEINE 12485543036 No Longer Active Annita Mejia MD PhD Active FLONASE 50 MCG/ACT SUSP 1 spray each nostril am and hs FLUTICASONE PROPIONATE 61630549323 No Longer Active Kendell Coronado MD Active MELOXICAM 15 MG TABS 1 po q day for pain with food MELOXICAM 69345859764 No Longer Active Kendell Coronado MD Active HYDROCODONE-ACETAMINOPHEN 5-325 MG TABS 1-2 q 4-6 hrs prn pain 20 tabs 07/04 HYDROCODONE-ACETAMINOPHEN 13316750219 No Longer Active Daniele Mcfadden DO Active PREDNISONE 20 MG TAB 1 tablet twice daily for 2 days, then 1 tablet once daily for 2 days PREDNISONE 36038218149 No Longer Active Daniele Mcfaddne DO Active PREDNISONE 20 MG TAB 1 po bid 2 days, then daily for 2 days 12/27 PREDNISONE 96403436496 No Longer Active Alexander LOPEZ Active AZITHROMYCIN 250 MG TABS 2 po qd x 1 day, then 1 po qd x 4 days AZITHROMYCIN 44312050078 No Longer Active Daniele Mcfadden DO Active MUCINEX MAXIMUM STRENGTH HI28G-KSO 1 po qd GUAIFENESIN XR12H- TAB 77717574601 No Longer Active Daniele Mcfadden DO Active AZITHROMYCIN 250 MG TABS 2 po qd x 1 day, then 1 po qd x 4 days AZITHROMYCIN 40030687201 No Longer Active Margarito Kelley MD Active PROAIR HFA 108 (90 BASE) MCG/ACT AERS 2 puffs every 4 hours as needed ALBUTEROL SULFATE 91857887667 Active Mckenna Cabreraum FACING SLITTER Active E-Z SPACER ERIBERTO use with proair inhalier every 4 times as need. SPACER/ AERO-HOLDING CHAMBERS 18112270762 Active Mckenna Cabreraum FACING SLITTER Active IRVING-D ALLERGY & CONGESTION TD94L-KMA 1 po bid FEXOFENADINE -PSEUDOEPHEDRINE KF33S-XNE 04758723436 Active Daniele Mcfadden DO Active MUCINEX MAXIMUM STRENGTH TB13C-BIS 1 po qd MUCINEX MAXIMUM STRENGTH BF85N-PXI GUAIFENESIN DE10O-IAF Inactive PREDNISONE 20 MG TAB 1 po bid 2 days, then daily for 2 days 12/27 PREDNISONE 20 MG TAB 089096 PREDNISONE Inactive PREDNISONE 20 MG TAB 1 tablet twice daily for 2 days, then 1 tablet once daily for 2 days PREDNISONE 20 MG TAB 780319 PREDNISONE Inactive HYDROCODONE-ACETAMINOPHEN 5-325 MG TABS 1-2 q 4-6 hrs prn pain 20 tabs 07/04 HYDROCODONE-ACETAMINOPHEN 5-325 MG TABS 131705 HYDROCODONE- ACETAMINOPHEN Inactive MELOXICAM 15 MG TABS 1 po q day for pain with food MELOXICAM 15 MG TABS 417142 MELOXICAM Inactive FLONASE 50 MCG/ACT SUSP 1 spray each nostril am and hs FLONASE 50 MCG/ACT SUSP 331366 FLUTICASONE PROPIONATE Inactive GUAIFENESIN-CODEINE 100-10 MG/5ML SYRP 5ml every 4 to 6 hours as needed for cough GUAIFENESIN-CODEINE 100-10 MG/5ML SYRP 090926 GUAIFENESIN-CODEINE Inactive ZITHROMAX Z-MARY 250 MG TABS 2 today and then 1 daily for 4 days ZITHROMAX Z-MARY 250 MG TABS 6912146 AZITHROMYCIN Inactive AZITHROMYCIN 250 MG TABS 2 po qd x 1 day, then 1 po qd x 4 days AZITHROMYCIN 250 MG TABS 0784447 AZITHROMYCIN Inactive AZITHROMYCIN 250 MG TABS 2 po qd x 1 day, then 1 po qd x 4 days AZITHROMYCIN 250 MG TABS 9229057 AZITHROMYCIN Inactive MEDROL (MARY) 4 MG TABS [...] Fluvirin, Fluarix, Agriflu(>=18 yo)) Fluzone (>3 yrs.) [QIE692] Influenza, seasonal, injectable Human Papillomavirus Vaccine (Gardasil) #1 Given (HPV #1) Gardasil [CVX62] human papilloma virus vaccine, quadrivalent hepatitis A immunization #2 Havrix-Pedi hepatitis A vaccine, unspecified formulation Combined Dtyknxnrmv-Fqmvhzn-ivvlxstke Pertussis (dTpa) Vaccine - Booster 12/02 Boostrix [MHH553] tetanus toxoid, reduced diphtheria toxoid, and acellular [...] dipstick Negative Negative sodium, serum 136 mmol/L 664-809 5533/10/31 potassium, serum 4.4 mmol/L 3.5-5.2 chloride, serum [...] AUTO - Chemistry sodium, serum 142 mmol/L 842-359 1509/11/12 potassium, serum 4.1 mmol/L 3.5-5.2 chloride, serum [...] 5.0-8.5 Encounters Code Encounter Date Provider Facility CPT-63529 Level 3 Est. Patient 12:19:42 CDT Daniele Mcfadden DO [facility] CPT-23820 Level 3 Est. Patient 11:08:45 CDT Annita Mejia MD PhD [facility] CPT-27690 Level 3 Est. Patient 12:00:17 CDT Kendell Coronado MD [facility] CPT-60136 Level 3 Est. Patient 12:27:25 CDT Daniele Mcfadden [facility] CPT-91966 Level 3 Est. Patient 18:45:11 REPAIRER VENEER SHEET Daniele Mcfadden [facility] CPT-63320 Level 3 Est. Patient 10:12:24 REPAIRER [employer] SHEET Daniele Mcfadden [facility] CPT-07145 Level 3 Est. Patient 14:35:11 REPAIRER [employer] SHEET Daniele Mcfadden [facility] CPT-84449 Level 3 Est. Patient 14:11:04 CDT Daniele Mcfadden [facility] CPT-81255 Level 3 Est. Patient 10:52:13 CDT Alexander Estrada [facility] CPT-59021 Level 3 Est. Patient 11:01:08 REPAIRER [employer]ENE[employer] SHEET Daniele Mcfadden [facility] CPT-60640 Level 3 Est. Patient 10:55:35 CDT Daniele Mcfadden [facility] CPT-47874 Level 3 Est. Patient 14:03:08 CDT Daniele Mcfadden [facility] CPT-46001 Level 3 Est. Patient 11:26:19 CDT Margarito Kelley MD [facility] CPT-58038 Level 2 Est. Patient 15:32:04 REPAIRER [employer]ET Daniele Mcfadden [facility] CPT-75913 Level 3 Est. Patient 16:01:26 REPAIRER [employer] SHEET Daniele Gaetano Bogdan [facility] CPT-62450 Level 3 Est. Patient 06:37:10 REPAIRER [employer] SHEET Daniele Gaet[facility] Procedures Code Procedure Name Date Entry Date Standard Description CPT-40873 Abd compl w upright 12:34:39 CDT CPT-64249 Immunization Single Admin 11:38:41 CDT CPT-10512 Fluzone Quadrivalent Intramuscular Suspension 0.5 ML 11: 38:41 CDT CPT-OV Office Visit 14:45:12 REPA[employer] CPT-03373 [employer] all organs plus proximal aorta and distal IVC 2012 12:13:02 REPAIRER [employer] SHEET CPT-81621 Abd compl w upright 15:12:58 REPAIRER [employer]ER SHEET CPT-52279 Venipuncture Draw Fee 14:38:32 REPAIRER [employer] SHEET CPT-41535 Administration single or combination vaccine inc oral 17 :10:04 CDT CPT-46428 Gardasil 17:10:04 CDT CPT-96624 Venipuncture Draw Fee 16:07:54 REPAIRER [employer] SHEET CPT-11213 Administration 2+ single or combination vaccines inc oral 17:22:02 CDT CPT-50419 Administration single or combination vaccine inc oral 17 :22:02 CDT CPT-19371 Influenza split virus > age 3 17:22:02 CDT CPT-45739 Gardasil 17:22:02 CDT CPT-99852 Administration 2+ single or combination vaccines inc oral 14:38:31 CDT CPT-19715 Administration single or combination vaccine inc oral 14 :38:31 CDT CPT-36508 Meningococcal Conjugate Vacine (Menactra) 14:38:31 CDT CPT-64813 Gardasil 14:38:31 CDT
--- OUTSIDE RECORDS SUMMARY | 2018-02-15 07:27 | XMS REPORT | Clinical Summary ---
Author Author Admin, OLEG Organization [facility] Address Unknown Phone Unavailable Allergies, Adverse [...] Mejia MD PhD Other malaise and fatigue CONCUSSION WITH LOC OF 30 MINUTES OR [...] Kendell Coronado MD Ankle sprain ICD-845.00 Inactive Kednell Coronado MD Pharyngitis ICD-462 Inactive Annita Mejia MD PhD ALLERGIC RHINITIS ICD-477.9 Inactive Errol Pack MD Medication List Medication Instructions Start Date Stop Date Generic Name NDC Status Provider Patient Instruction MEDROL (MARY) 4 MG TABS 6 pills on day 1, 5 pills on day 2, 4 pills on day 3, 4 pills on day 4, 2 pills on day 5, 1 pill on day 6 METHYLPREDNISOLONE 38416723918 Active Annita Mejia MD PhD Active ZITHROMAX Z-MARY 250 MG TABS 2 today and then 1 daily for 4 days AZITHROMYCIN 23642252843 No Longer Active Annita Mejia MD PhD Active GUAIFENESIN-CODEINE 100-10 MG/5ML SYRP 5ml every 4 to 6 hours as needed for cough GUAIFENESIN-CODEINE 31043825417 No Longer Active Annita Mejia MD PhD Active FLONASE 50 MCG/ACT SUSP 1 spray each nostril am and hs FLUTICASONE PROPIONATE 29616389093 No Longer Active Kendell Coronado MD Active MELOXICAM 15 MG TABS 1 po q day for pain with food MELOXICAM 09372124834 No Longer Active Kendell Coronado MD Active HYDROCODONE-ACETAMINOPHEN 5-325 MG TABS 1-2 q 4-6 hrs prn pain 20 tabs 07/04 HYDROCODONE-ACETAMINOPHEN 09807720693 No Longer Active Daniele Mcfadden DO Active PREDNISONE 20 MG TAB 1 tablet twice daily for 2 days, then 1 tablet once daily for 2 days PREDNISONE 25430418251 No Longer Active Daniele Mcfadden DO Active PREDNISONE 20 MG TAB 1 po bid 2 days, then daily for 2 days 12/27 PREDNISONE 15401699860 No Longer Active Alexander LOPEZ Active AZITHROMYCIN 250 MG TABS 2 po qd x 1 day, then 1 po qd x 4 days AZITHROMYCIN 00065505581 No Longer Active Daniele Mcfadden DO Active MUCINEX MAXIMUM STRENGTH DF85H-DQZ 1 po qd GUAIFENESIN XR12H- TAB 15480424084 No Longer Active Daniele Mcfadden DO Active AZITHROMYCIN 250 MG TABS 2 po qd x 1 day, then 1 po qd x 4 days AZITHROMYCIN 65830068535 No Longer Active Margarito Kelley MD Active PROAIR HFA 108 (90 BASE) MCG/ACT AERS 2 puffs every 4 hours as needed ALBUTEROL SULFATE 93023162557 Active Mckenna Cabreraum INGOT HEADER Active E-Z SPACER ERIBERTO use with proair inhalier every 4 times as need. SPACER/ AERO-HOLDING CHAMBERS 22431346991 Active Mckenna Mayo INGOT HEADER Active IRVING-D ALLERGY & CONGESTION ZR86V-SGI 1 po bid FEXOFENADINE -PSEUDOEPHEDRINE WC48C-NZS 50457134632 Active Daniele Mcfadden DO Active MUCINEX MAXIMUM STRENGTH OM86X-VMX 1 po qd MUCINEX MAXIMUM STRENGTH WM01J-ARB GUAIFENESIN PL44N-YJS Inactive PREDNISONE 20 MG TAB 1 po bid 2 days, then daily for 2 days 12/27 PREDNISONE 20 MG TAB 732411 PREDNISONE Inactive PREDNISONE 20 MG TAB 1 tablet twice daily for 2 days, then 1 tablet once daily for 2 days PREDNISONE 20 MG TAB 249105 PREDNISONE Inactive HYDROCODONE-ACETAMINOPHEN 5-325 MG TABS 1-2 q 4-6 hrs prn pain 20 tabs 07/04 HYDROCODONE-ACETAMINOPHEN 5-325 MG TABS 686075 HYDROCODONE- ACETAMINOPHEN Inactive MELOXICAM 15 MG TABS 1 po q day for pain with food MELOXICAM 15 MG TABS 768784 MELOXICAM Inactive FLONASE 50 MCG/ACT SUSP 1 spray each nostril am and hs FLONASE 50 MCG/ACT SUSP 028776 FLUTICASONE PROPIONATE Inactive GUAIFENESIN-CODEINE 100-10 MG/5ML SYRP 5ml every 4 to 6 hours as needed for cough GUAIFENESIN-CODEINE 100-10 MG/5ML SYRP 612787 GUAIFENESIN-CODEINE Inactive ZITHROMAX Z-MARY 250 MG TABS 2 today and then 1 daily for 4 days ZITHROMAX Z-MARY 250 MG TABS 9709063 AZITHROMYCIN Inactive AZITHROMYCIN 250 MG TABS 2 po qd x 1 day, then 1 po qd x 4 days AZITHROMYCIN 250 MG TABS 3788597 AZITHROMYCIN Inactive AZITHROMYCIN 250 MG TABS 2 po qd x 1 day, then 1 po qd x 4 days AZITHROMYCIN 250 MG TABS 1884200 AZITHROMYCIN Inactive Immunizations Vaccine Administration Date Value Standard Description Seasonal influenza vaccine, injectable, containing preservative, for > 3 years old (Afluria, FluLaval, Fluzone, Fluvirin, Fluarix, Agriflu(>=18 yo)) Fluzone (>3 yrs.) [YMF232] Influenza, seasonal, injectable Human Papillomavirus vaccine (Gardasil) #2, (HPV #2) Gardasil [ CVX62] human papilloma virus vaccine, quadrivalent Human Papillomavirus Vaccine (Gardasil) #1 Given (HPV #1) Gardasil [CVX62] human papilloma virus vaccine, quadrivalent hepatitis A immunization #2 Havrix-Pedi hepatitis A vaccine, unspecified formulation Boostrix (Tetanus toxoid, reduced diphtheria toxoid and acellular pertussis vaccine, adsorbed), booster Boostrix [VGP685] tetanus toxoid, reduced diphtheria toxoid, and acellular [...] AUTO - Chemistry sodium, serum 142 mmol/L 489-245 7397/11/12 potassium, serum 4.1 mmol/L 3.5-5.2 chloride, serum [...] 5.0-8.5 Encounters Code Encounter Date Provider Facility CPT-53645 Level 3 Est. Patient 11:08:45 CDT Annita Mejia MD PhD [facility] CPT-18380 Level 3 Est. Patient 12:00:17 CDT Kendell Coronado MD [facility] CPT-82461 Level 3 Est. Patient 12:27:25 CDT Daniele Mcfadden [facility] CPT-80439 Level 3 Est. Patient 18:45:11 BRANCH OPERATIONS MANAGER Daniele Mcfadden [facility] CPT-67560 Level 3 Est. Patient 10:12:24 BRANCH OPERATIONS MANAGER Daniele Mcfadden [facility] CPT-44698 Level 3 Est. Patient 14:35:11 BRANCH OPERATIONS MANAGER Daniele Mcfadden [facility] CPT-74618 Level 3 Est. Patient 14:11:04 CDT Daniele Mcfadden [facility] CPT-72550 Level 3 Est. Patient 10:52:13 CDT Alexander LOPEZ [facility] CPT-75607 Level 3 Est. Patient 11:01:08 BRANCH OPERATIONS MANAGER Daniele Mcfadden [facility] CPT-48685 Level 3 Est. Patient 10:55:[address] [facility] CPT-91405 Level 3 Est. Patient 14:03:08 CDT Daniele Mcfadden [facility] CPT-57823 Level 3 Est. Patient 11:26:19 CDT Margarito Kelley MD [facility] CPT-56676 Level 2 Est. Patient 15:32:04 BRANCH OPERATIONS MANAGER Daniele Gaetano Mcfadden [facility] CPT-27284 Level 3 Est. Patient 16:01:26 BRANCH OPERATIONS MANAGER Daniele Salter Bogdan [facility] CPT-74111 Level 3 Est. Patient 06:37:10 BRANCH OPERATIONS MANAGER Daniele Mcfadden [facility] Procedures Code Procedure Name Date Entry Date Standard Description CPT-OV Office Visit 14:45:12 BRANCH OPERATIONS MANAGER CPT-76982 [employer] all organs plus proximal aorta and distal IVC 2012 12:13:02 BRANCH OPERATIONS MANAGER CPT-21569 Abd compl w upright 15:12:58 BRANCH OPERATIONS MANAGER CPT-13077 Venipuncture Draw Fee 14:38:32 BRANCH OPERATIONS MANAGER CPT-81749 Administration single or combination vaccine inc oral 17 :10:04 CDT CPT-87197 Gardasil 17:10:04 CDT CPT-78232 Venipuncture Draw Fee 16:07:54 BRANCH OPERATIONS MANAGER CPT-42278 Administration 2+ single or combination vaccines inc oral 17:22:02 CDT CPT-02569 Administration single or combination vaccine inc oral 17 :22:02 CDT CPT-33276 Influenza split virus > age 3 17:22:02 CDT CPT-42853 Gardasil 17:22:02 CDT CPT-33471 Administration 2+ single or combination vaccines inc oral 14:38:31 CDT CPT-35338 Administration single or combination vaccine inc oral 14 :38:31 CDT CPT-15405 Meningococcal Conjugate Vacine (Menactra) 14:38:31 CDT [facility]-30188 Gardasil 14:38:31 CDT
--- OUTSIDE RECORDS SUMMARY | 2018-02-15 07:28 | XMS REPORT ---
Author Author [facility] Medical Staff Organization [facility] Address [address] [place] [id number] Phone [phone] Care Team Providers Care Sql Server Bi Developer Name Role Phone ASHWINI RABAGO DO PP [phone] Summary purpose TRANSITION OF CARE AUTO GENERATION [...]
--- OUTSIDE RECORDS SUMMARY | 2018-02-15 07:28 | XMS REPORT | Clinical Summary ---
Author Author Admin, OLEG Organization [facility] Address Unknown Phone Unavailable Allergies, Adverse Reactions, [...] specified site; multiple sites Pharyngitis, acute 462 Active Renée Adames APRN Acute pharyngitis Knee pain, left 719.46 Active Daniele Mcfadden DO Pain in joint involving lower leg ALLERGIC RHINITIS ICD-477.9 Inactive Errol Pack MD [...] Abdominal pain ICD-789.00 Inactive Errol Pakc MD U R I ICD-465.9 Inactive Daniele Mcfadden DO Abdominal pain ICD-789.00 Inactive Kendell Coronado MD Ankle sprain ICD-845.00 Inactive Kendell Coronado MD Pharyngitis ICD-462 Inactive Annita Mejia MD PhD Medication List Medication Instructions Start Date Stop Date Generic Name NDC Status Provider Patient Instruction CEPHALEXIN 500 MG CAPS 1 tablet by mouth three times daily for ten days 06/25 CEPHALEXIN 49971630865 No Longer Active Renée Adames APRN Active MEDROL (MARY) 4 MG TABS 6 pills on day 1, 5 pills on day 2, 4 pills on day 3, 4 pills on day 4, 2 pills on day 5, 1 pill on day 6 METHYLPREDNISOLONE 97616723402 No Longer Active Annita Mejia MD PhD Active ZITHROMAX Z-MARY 250 MG TABS 2 today and then 1 daily for 4 days AZITHROMYCIN 33067746202 No Longer Active Annita Mejia MD PhD Active GUAIFENESIN-CODEINE 100-10 MG/5ML SYRP 5ml every 4 to 6 hours as needed for cough GUAIFENESIN-CODEINE 22260425812 No Longer Active Annita Mejia MD PhD Active FLONASE 50 MCG/ACT SUSP 1 spray each nostril am and hs FLUTICASONE PROPIONATE 84994444601 No Longer Active Kendell Coronado MD Active MELOXICAM 15 MG TABS 1 po q day for pain with food MELOXICAM 87782884688 No Longer Active Kendell Coronado MD Active HYDROCODONE-ACETAMINOPHEN 5-325 MG TABS 1-2 q 4-6 hrs prn pain 20 tabs 07/04 HYDROCODONE-ACETAMINOPHEN 87891602137 No Longer Active Daniele Mcfadden DO Active PREDNISONE 20 MG TAB 1 tablet twice daily for 2 days, then 1 tablet once daily for 2 days PREDNISONE 36915905258 No Longer Active Daniele Mcfadden DO Active PREDNISONE 20 MG TAB 1 po bid 2 days, then daily for 2 days 12/27 PREDNISONE 67417419720 No Longer Active Alexander LOPEZ Active AZITHROMYCIN 250 MG TABS 2 po qd x 1 day, then 1 po qd x 4 days AZITHROMYCIN 03226006261 No Longer Active Daniele Mcfadden DO Active MUCINEX MAXIMUM STRENGTH SO68Z-TFO 1 po qd GUAIFENESIN XR12H- TAB 00579344988 No Longer Active Daniele Mcfadden DO Active AZITHROMYCIN 250 MG TABS 2 po qd x 1 day, then 1 po qd x 4 days AZITHROMYCIN 08782187028 No Longer Active Margarito Kelley MD Active PROAIR HFA 108 (90 BASE) MCG/ACT AERS 2 puffs every 4 hours as needed ALBUTEROL SULFATE 96485966286 Active Mckenna Mayo LPN Active E-Z SPACER ERIBERTO use with proair inhalier every 4 times as need. SPACER/ AERO-HOLDING CHAMBERS 76304797447 Active Mckenna Mayo LPN Active IRVING-D ALLERGY & CONGESTION AK38O-PBD 1 po bid FEXOFENADINE -PSEUDOEPHEDRINE IZ54Z-PNU 02872060678 Active Daniele Mcfadden DO Active MUCINEX MAXIMUM STRENGTH VN46A-FGG 1 po qd MUCINEX MAXIMUM STRENGTH UB89G-DDB GUAIFENESIN ZX51B-PIH Inactive PREDNISONE 20 MG TAB 1 po bid 2 days, then daily for 2 days 12/27 PREDNISONE 20 MG TAB 997757 PREDNISONE Inactive PREDNISONE 20 MG TAB 1 tablet twice daily for 2 days, then 1 tablet once daily for 2 days PREDNISONE 20 MG TAB 531923 PREDNISONE Inactive HYDROCODONE-ACETAMINOPHEN 5-325 MG TABS 1-2 q 4-6 hrs prn pain 20 tabs 07/04 HYDROCODONE-ACETAMINOPHEN 5-325 MG TABS 830189 HYDROCODONE- ACETAMINOPHEN Inactive MELOXICAM 15 MG TABS 1 po q day for pain with food MELOXICAM 15 MG TABS 549477 MELOXICAM Inactive FLONASE 50 MCG/ACT SUSP 1 spray each nostril am and hs FLONASE 50 MCG/ACT SUSP 938562 FLUTICASONE PROPIONATE Inactive GUAIFENESIN-CODEINE 100-10 MG/5ML SYRP 5ml every 4 to 6 hours as needed for cough GUAIFENESIN-CODEINE 100-10 MG/5ML SYRP 190632 GUAIFENESIN-CODEINE Inactive ZITHROMAX Z-MARY 250 MG TABS 2 today and then 1 daily for 4 days ZITHROMAX Z-MARY 250 MG TABS 2480117 AZITHROMYCIN Inactive AZITHROMYCIN 250 MG TABS 2 po qd x 1 day, then 1 po qd x 4 days AZITHROMYCIN 250 MG TABS 2466017 AZITHROMYCIN Inactive AZITHROMYCIN 250 MG TABS 2 po qd x 1 day, then 1 po qd x 4 days AZITHROMYCIN 250 MG TABS 0206983 AZITHROMYCIN Inactive MEDROL (MARY) 4 MG TABS 6 pills on day 1, 5 pills on day 2, 4 pills on day 3, 4 pills on day 4, 2 pills on day 5, 1 pill on day 6 MEDROL (MARY) 4 MG TABS METHYLPREDNISOLONE Inactive CEPHALEXIN 500 MG CAPS 1 tablet by mouth three times daily for ten days 06/25 CEPHALEXIN 500 MG CAPS 098435 CEPHALEXIN Inactive Immunizations Vaccine Administration Date Value Standard Description Seasonal influenza vaccine, injectable, containing preservative, for > 3 years old (Afluria, FluLaval, Fluzone, Fluvirin, Fluarix, Agriflu(>=18 yo)) Fluzone (>3 yrs.) [[id number]] Influenza, seasonal, injectable Human Papillomavirus vaccine (Gardasil) #2, (HPV #2) Gardasil [ CVX62] human papilloma virus vaccine, quadrivalent Human Papillomavirus Vaccine (Gardasil) #1 Given (HPV #1) Gardasil [CVX62] human papilloma virus vaccine, quadrivalent hepatitis A immunization #2 Havrix-Pedi hepatitis A vaccine, unspecified formulation Boostrix (Tetanus toxoid, reduced diphtheria toxoid and acellular pertussis vaccine, adsorbed), booster Boostrix [[id number]] tetanus toxoid, reduced diphtheria toxoid, and acellular [...] E&M - 3141-9 163 [lb_av] Weight Measured Diagnostic Results Date Name Value Unit Range Description Immunizations: TB Skin Test - Challenge tests PPD results in mm 0 mm Lab Report: CBC W/DIFF, Comp. Metabolic Panel, UADIP W/MICRO, AUTO - Chemistry protein, total urine random Negative mg/dL Negative RBC, urine, dipstick Negative Negative sodium, serum 136 mmol/L 582-019 0097/10/31 potassium, serum 4.4 mmol/L 3.5-5.2 chloride, serum [...] 5.0-8.5 Encounters Code Encounter Date Provider Facility CPT-83671 Level 3 Est. Patient 15:37:06 AIRCRAFT CYLINDER MECHANIC Daniele Mcfadden DO [facility] CPT-55590 Level 3 Est. Patient 11:56:34 AIRCRAFT CYLINDER MECHANIC Renée Adames ALEX [facility] CPT-83138 Level 3 Est. Patient 12:19:42 CDT Daniele Mcfadden [facility] CPT-40389 Level 3 Est. Patient 11:08:45 CDT Annita Mejia MD PhD [facility] CPT-66736 Level 3 Est. Patient 12:00:17 CDT Kendell Coronado MD [facility] CPT-53078 Level 3 Est. Patient 12:27:25 CDT Daniele Mcfadden [facility] CPT-95204 Level 3 Est. Patient 18:45:11 AIRCRAFT CYLINDER MECHANIC Daniele Mcfadden [facility] CPT-67972 Level 3 Est. Patient 10:12:24 AIRCRAFT CYLINDER MECHANIC Daniele Mcfadden [facility] CPT-93308 Level 3 Est. Patient 14:35:11 AIRCRAFT CYLINDER MECHANIC Daniele Mcfadden [facility] CPT-40337 Level 3 Est. Patient 14:11:04 CDT Daniele Mcfadden [facility] CPT-89805 Level 3 Est. Patient 10:52:13 CDT Alexander LOPEZ [facility] CPT-14703 Level 3 Est. Patient 11:01:08 AIRCRAFT CYLINDER MECHANIC Daniele Mcfadden [facility] CPT-83778 Level 3 Est. Patient 10:55:35 CDT Daniele Mcfadden [facility] CPT-07289 Level 3 Est. Patient 14:03:08 CDT Daniele Mcfadden [facility] CPT-31903 Level 3 Est. Patient 11:26:19 CDT Margarito Kelley MD [facility] CPT-93892 Level 2 Est. Patient 15:32:04 AIRCRAFT CYLINDER MECHANIC Daniele Mcfadden [facility] CPT-87735 Level 3 Est. Patient 16:01:26 AIRCRAFT CYLINDER MECHANIC Daniele Mcfadden [facility] CPT-12211 Level 3 Est. Patient 06:37:10 AIRCRAFT CYLINDER MECHANIC Daniele Mcfadden [facility] Procedures Code Procedure Name Date Entry Date Standard Description CPT-74910 Abd compl w upright 12:34:39 CDT CPT-71164 Immunization Single Admin 11:38:41 CDT CPT-97541 Fluzone Quadrivalent Intramuscular Suspension 0.5 ML 11: 38:41 CDT CPT-OV Office Visit 14:45:12 AIRCRAFT CYLINDER MECHANIC CPT-24012 [employer] inc all organs plus proximal aorta and distal IVC 2012 12:13:02 AIRCRAFT CYLINDER MECHANIC CPT-86343 Abd compl w upright 15:12:58 AIRCRAFT CYLINDER MECHANIC CPT-96201 Venipuncture Draw Fee 14:38:32 AIRCRAFT CYLINDER MECHANIC CPT-01157 Administration single or combination vaccine inc oral 17 :10:04 CDT CPT-46224 Gardasil 17:10:04 CDT CPT-60011 Venipuncture Draw Fee 16:07:54 AIRCRAFT CYLINDER MECHANIC CPT-75401 Administration 2+ single or combination vaccines inc oral 17:22:02 CDT CPT-58060 Administration single or combination vaccine inc oral 17 :22:02 CDT CPT-53392 Influenza split virus > age 3 17:22:02 CDT CPT-63404 Gardasil 17:22:02 CDT CPT-40799 Administration 2+ single or combination vaccines inc oral 14:38:31 CDT CPT-53554 Administration single or combination vaccine inc oral 14 :38:31 CDT CPT-29513 Meningococcal Conjugate Vacine (Menactra) 14:38:31 CDT CPT-30663 Gardasil 14:38:31 CDT
--- OUTSIDE RECORDS SUMMARY | 2018-02-15 07:29 | XMS REPORT | Clinical Summary ---
Author Author Admin, OLEG Organization [facility] Address Unknown Phone Unavailable Allergies, Adverse Reactions, [...] 6 hours as needed for cough GUAIFENESIN-CODEINE 55759970950 Active Kendell Coronado MD Active ZITHROMAX Z-MARY 250 MG TABS 2 today and then 1 daily for 4 days AZITHROMYCIN 58535993985 Active Kendell Coronado MD Active FLONASE 50 MCG/ACT SUSP 1 spray each nostril am and hs FLUTICASONE PROPIONATE 95061577797 No Longer Active Kendell Coronado MD Active MELOXICAM 15 MG TABS 1 po q day for pain with food MELOXICAM 30243021603 No Longer Active Kendell Coronado MD Active HYDROCODONE-ACETAMINOPHEN 5-325 MG TABS 1-2 q 4-6 hrs prn pain 20 tabs 07/04 HYDROCODONE-ACETAMINOPHEN 13485585048 No Longer Active Daniele Mcfadden DO Active PREDNISONE 20 MG TAB 1 tablet twice daily for 2 days, then 1 tablet once daily for 2 days PREDNISONE 14401092521 No Longer Active Daniele Mcfadden DO Active PREDNISONE 20 MG TAB 1 po bid 2 days, then daily for 2 days 12/27 PREDNISONE 45723050657 No Longer Active Alexander LOPEZ Active AZITHROMYCIN 250 MG TABS 2 po qd x 1 day, then 1 po qd x 4 days AZITHROMYCIN 93298775163 No Longer Active Daniele Mcfadden DO Active MUCINEX MAXIMUM STRENGTH FT53E-QWP 1 po qd GUAIFENESIN XR12H- TAB 41139381803 No Longer Active Daniele Mcfadden DO Active AZITHROMYCIN 250 MG TABS 2 po qd x 1 day, then 1 po qd x 4 days AZITHROMYCIN 79852125295 No Longer Active Margarito Kelley MD Active PROAIR HFA 108 (90 BASE) MCG/ACT AERS 2 puffs every 4 hours as needed ALBUTEROL SULFATE 24412129052 Active Mckenna Mayo LPN Active E-Z SPACER ERIBERTO use with proair inhalier every 4 times as need. SPACER/ AERO-HOLDING CHAMBERS 60348084522 Active Mckenna Mayo LPN Active IRVING-D ALLERGY & CONGESTION HJ25D-NKV 1 po bid FEXOFENADINE -PSEUDOEPHEDRINE NB15Q-MCH 70535238213 Active Daniele Mcfadden DO Active MUCINEX MAXIMUM STRENGTH NR62F-TIG 1 po qd MUCINEX MAXIMUM STRENGTH FQ70S-WVG GUAIFENESIN KB35T-PTO Inactive PREDNISONE 20 MG TAB 1 po bid 2 days, then daily for 2 days 12/27 PREDNISONE 20 MG TAB 216286 PREDNISONE Inactive PREDNISONE 20 MG TAB 1 tablet twice daily for 2 days, then 1 tablet once daily for 2 days PREDNISONE 20 MG TAB 700506 PREDNISONE Inactive HYDROCODONE-ACETAMINOPHEN 5-325 MG TABS 1-2 q 4-6 hrs prn pain 20 tabs 07/04 HYDROCODONE-ACETAMINOPHEN 5-325 MG TABS 854183 HYDROCODONE- ACETAMINOPHEN Inactive MELOXICAM 15 MG TABS 1 po q day for pain with food MELOXICAM 15 MG TABS 745786 MELOXICAM Inactive FLONASE 50 MCG/ACT SUSP 1 spray each nostril am and hs FLONASE 50 MCG/ACT SUSP 525186 FLUTICASONE PROPIONATE Inactive AZITHROMYCIN 250 MG TABS 2 po qd x 1 day, then 1 po qd x 4 days AZITHROMYCIN 250 MG TABS 9159241 AZITHROMYCIN Inactive AZITHROMYCIN 250 MG TABS 2 po qd x 1 day, then 1 po qd x 4 days AZITHROMYCIN 250 MG TABS 1158783 AZITHROMYCIN Inactive Immunizations Vaccine Administration Date Value Standard Description Human Papillomavirus vaccine (Gardasil) #2, (HPV #2) Gardasil [ CVX62] human papilloma virus vaccine, quadrivalent Seasonal influenza vaccine, injectable, containing preservative, for > 3 years old (Afluria, FluLaval, Fluzone, Fluvirin, Fluarix, Agriflu(>=18 yo)) Fluzone (>3 yrs.) [UTU701] Influenza, seasonal, injectable Human Papillomavirus Vaccine (Gardasil) #1 Given (HPV #1) Gardasil [CVX62] human papilloma virus vaccine, quadrivalent hepatitis A immunization #2 Havrix-Pedi hepatitis A vaccine, unspecified formulation Boostrix (Tetanus toxoid, reduced diphtheria toxoid and acellular pertussis vaccine, adsorbed), booster Boostrix [[id number]] tetanus toxoid, reduced diphtheria toxoid, and acellular [...] AUTO - Chemistry sodium, serum 142 mmol/L 812-631 6548/11/12 potassium, serum 4.1 mmol/L 3.5-5.2 chloride, serum [...] 5.0-8.5 Encounters Code Encounter Date Provider Facility CPT-37478 Level 3 Est. Patient 12:00:17 CDT Kendell Coronado MD [facility] CPT-77225 Level 3 Est. Patient 12:27:25 CDT Daniele Mcfadden [facility] CPT-37818 Level 3 Est. Patient 18:45:11 SENIOR PRINCIPAL SOFTWARE ENGINEER Daniele Mcfadden [facility] CPT-44974 Level 3 Est. Patient 10:12:24 SENIOR PRINCIPAL SOFTWARE ENGINEER Daniele Mcfadden DO [facility] CPT-03038 Level 3 Est. Patient 14:35:11 SENIOR PRINCIPAL SOFTWARE ENGINEER Daniele Mcfadden [facility] CPT-04742 Level 3 Est. Patient 14:11:04 CDT Daniele Mcfadden [facility] CPT-25400 Level 3 Est. Patient 10:52:13 CDT Alexander LOPEZ [facility] CPT-95332 Level 3 Est. Patient 11:01:08 SENIOR PRINCIPAL SOFTWARE ENGINEER Daniele Mcfadden [facility] CPT-78364 Level 3 Est. Patient 10:55:35 CDT Daniele Mcfadden [facility] CPT-57226 Level 3 Est. Patient 14:03:08 CDT Daniele Mcfadden [facility] CPT-59520 Level 3 Est. Patient 11:26:19 CDT Margarito Kelley MD [facility] CPT-16636 Level 2 Est. Patient 15:32:04 SENIOR PRINCIPAL SOFTWARE ENGINEER Daniele Mcfadden [facility] CPT-32045 Level 3 Est. Patient 16:01:26 SENIOR PRINCIPAL SOFTWARE ENGINEER Daniele Mcfadden [facility] CPT-14808 Level 3 Est. Patient 06:37:10 SENIOR PRINCIPAL SOFTWARE ENGINEER Daniele Mcfadden [facility] Procedures Code Procedure Name Date Entry Date Standard Description CPT-OV Office Visit 14:45:12 SENIOR PRINCIPAL SOFTWARE ENGINEER CPT-90648 [employer] inc all organs plus proximal aorta and distal IVC 2012 12:13:02 SENIOR PRINCIPAL SOFTWARE ENGINEER CPT-27680 Abd compl w upright 15:12:58 SENIOR PRINCIPAL SOFTWARE ENGINEER CPT-37483 Venipuncture Draw Fee 14:38:32 SENIOR PRINCIPAL SOFTWARE ENGINEER CPT-49371 Administration single or combination vaccine inc oral 17 :10:04 CDT CPT-68064 Gardasil 17:10:04 CDT CPT-96563 Venipuncture Draw Fee 16:07:54 SENIOR PRINCIPAL SOFTWARE ENGINEER CPT-39021 Administration 2+ single or combination vaccines inc oral 17:22:02 CDT CPT-08590 Administration single or combination vaccine inc oral 17 :22:02 CDT CPT-33939 Influenza split virus > age 3 17:22:02 CDT CPT-76878 Gardasil 17:22:02 CDT CPT-92095 Administration 2+ single or combination vaccines inc oral 14:38:31 CDT CPT-11808 Administration single or combination vaccine inc oral 14 :38:31 CDT CPT-06010 Meningococcal Conjugate Vacine (Menactra) 14:38:31 CDT CPT-63704 Gardasil 14:38:31 CDT
--- OUTSIDE RECORDS SUMMARY | 2018-02-15 07:30 | XMS REPORT | Clinical Summary ---
Author Author Admin, OLEG Organization [facility] Address Unknown Phone Unavailable Allergies, [...] 5, 1 pill on day 6 METHYLPREDNISOLONE 60242660334 Active Annita Mejia MD PhD Active ZITHROMAX Z-MARY 250 MG TABS 2 today and then 1 daily for 4 days AZITHROMYCIN 10039667768 No Longer Active Annita Mejia MD PhD Active GUAIFENESIN-CODEINE 100-10 MG/5ML SYRP 5ml every 4 to 6 hours as needed for cough GUAIFENESIN-CODEINE 18540430845 No Longer Active Annita Mejia MD PhD Active FLONASE 50 MCG/ACT SUSP 1 spray each nostril am and hs FLUTICASONE PROPIONATE 26205477835 No Longer Active Kendell Coronado MD Active MELOXICAM 15 MG TABS 1 po q day for pain with food MELOXICAM 79957490370 No Longer Active Kendell Coronado MD Active HYDROCODONE-ACETAMINOPHEN 5-325 MG TABS 1-2 q 4-6 hrs prn pain 20 tabs 07/04 HYDROCODONE-ACETAMINOPHEN 19591624935 No Longer Active Daniele Mcfadden DO Active PREDNISONE 20 MG TAB 1 tablet twice daily for 2 days, then 1 tablet once daily for 2 days PREDNISONE 43998822740 No Longer Active Daniele Mcfadden DO Active PREDNISONE 20 MG TAB 1 po bid 2 days, then daily for 2 days 12/27 PREDNISONE 50068189110 No Longer Active Alexander LOPEZ Active AZITHROMYCIN 250 MG TABS 2 po qd x 1 day, then 1 po qd x 4 days AZITHROMYCIN 23812234318 No Longer Active Daniele Mcfadden DO Active MUCINEX MAXIMUM STRENGTH HE11W-NSF 1 po qd GUAIFENESIN XR12H- TAB 64776959945 No Longer Active Daniele Mcfadden DO Active AZITHROMYCIN 250 MG TABS 2 po qd x 1 day, then 1 po qd x 4 days AZITHROMYCIN 17541461846 No Longer Active Margarito Kelley MD Active PROAIR HFA 108 (90 BASE) MCG/ACT AERS 2 puffs every 4 hours as needed ALBUTEROL SULFATE 47713579495 Active Mckenna Cabreraum [employer]IE[employer] DOCKING MASTER Active E-Z SPACER ERIBERTO use with proair inhalier every 4 times as need. SPACER/ AERO-HOLDING CHAMBERS 06053526047 Active Mckenna Mayo RELIEF DOCKING MASTER Active IRVING-D ALLERGY & CONGESTION OU51V-RGS 1 po bid FEXOFENADINE -PSEUDOEPHEDRINE DU01T-MFE 35677601710 Active Daniele Mcfadden DO Active MUCINEX MAXIMUM STRENGTH GJ26E-GZH 1 po qd MUCINEX MAXIMUM STRENGTH ZG04P-QSN GUAIFENESIN LJ05S-UYE Inactive PREDNISONE 20 MG TAB 1 po bid 2 days, then daily for 2 days 12/27 PREDNISONE 20 MG TAB 447647 PREDNISONE Inactive PREDNISONE 20 MG TAB 1 tablet twice daily for 2 days, then 1 tablet once daily for 2 days PREDNISONE 20 MG TAB 410869 PREDNISONE Inactive HYDROCODONE-ACETAMINOPHEN 5-325 MG TABS 1-2 q 4-6 hrs prn pain 20 tabs 07/04 HYDROCODONE-ACETAMINOPHEN 5-325 MG TABS 571918 HYDROCODONE- ACETAMINOPHEN Inactive MELOXICAM 15 MG TABS 1 po q day for pain with food MELOXICAM 15 MG TABS 230441 MELOXICAM Inactive FLONASE 50 MCG/ACT SUSP 1 spray each nostril am and hs FLONASE 50 MCG/ACT SUSP 154424 FLUTICASONE PROPIONATE Inactive GUAIFENESIN-CODEINE 100-10 MG/5ML SYRP 5ml every 4 to 6 hours as needed for cough GUAIFENESIN-CODEINE 100-10 MG/5ML SYRP 447703 GUAIFENESIN-CODEINE Inactive ZITHROMAX Z-MARY 250 MG TABS 2 today and then 1 daily for 4 days ZITHROMAX Z-MARY 250 MG TABS 4113981 AZITHROMYCIN Inactive AZITHROMYCIN 250 MG TABS 2 po qd x 1 day, then 1 po qd x 4 days AZITHROMYCIN 250 MG TABS 9883990 AZITHROMYCIN Inactive AZITHROMYCIN 250 MG TABS 2 po qd x 1 day, then 1 po qd x 4 days AZITHROMYCIN 250 MG TABS 0841590 AZITHROMYCIN Inactive Immunizations Vaccine Administration Date Value Standard Description Human Papillomavirus vaccine (Gardasil) #2, (HPV #2) Gardasil [ CVX62] human papilloma virus vaccine, quadrivalent Seasonal influenza vaccine, injectable, containing preservative, for > 3 years old (Afluria, FluLaval, Fluzone, Fluvirin, Fluarix, Agriflu(>=18 yo)) Fluzone (>3 yrs.) [[id number]] Influenza, seasonal, injectable Human Papillomavirus Vaccine (Gardasil) #1 Given (HPV #1) Gardasil [CVX62] human papilloma virus vaccine, quadrivalent hepatitis A immunization #2 Havrix-Pedi hepatitis A vaccine, unspecified formulation Boostrix (Tetanus toxoid, reduced diphtheria toxoid and acellular pertussis vaccine, adsorbed), booster Boostrix [GAD112] tetanus toxoid, reduced diphtheria toxoid, and acellular [...] AUTO - Chemistry sodium, serum 142 mmol/L 715-551 5483/11/12 potassium, serum 4.1 mmol/L 3.5-5.2 chloride, serum [...] 5.0-8.5 Encounters Code Encounter Date Provider Facility CPT-12083 Level 3 Est. Patient 11:08:45 CDT Annita Mejia MD PhD [facility]-81520 Level 3 Est. Patient 12:00:17 CDT Kendell Coronado MD [facility]-90817 Level 3 Est. Patient 12:27:25 CDT Daniele Mcfadden [facility] CPT-35568 Level 3 Est. Patient 18:45:11 LOAN FUNDER Daniele Mcfadden [facility] CPT-61874 Level 3 Est. Patient 10:12:24 LOAN FUNDER Daniele Mcfadden [facility] CPT-45151 Level 3 Est. Patient 14:35:11 LOAN FUNDER Daniele Mcfadden [facility] CPT-08909 Level 3 Est. Patient 14:11:04 CDT Daniele Mcfadden [facility] CPT-18200 Level 3 Est. Patient 10:52:13 CDT Alexander LOPEZ [facility] CPT-76769 Level 3 Est. Patient 11:01:08 LOAN FUNDER Daniele Mcfadden [facility] CPT-74291 Level 3 Est. Patient 10:55:35 CDT Daniele Mcfadden [facility]-24474 Level 3 Est. Patient 14:03:08 CDT Daniele Mcfadden [facility] CPT-26934 Level 3 Est. Patient 11:26:19 CDT Margarito Kelley MD [facility] CPT-51927 Level 2 Est. Patient 15:32:04 LOAN FUNDER Daniele Gaetano Mcfadden [facility] CPT-18077 Level 3 Est. Patient 16:01:26 LOAN FUNDER Daniele Salter Bogdan [facility] CPT-97425 Level 3 Est. Patient 06:37:10 LOAN FUNDER Daniele Mcfadden [facility] Procedures Code Procedure Name Date Entry Date Standard Description CPT-OV Office Visit 14:45:12 LOAN FUNDER CPT-54810 [employer] inc all organs plus proximal aorta and distal IVC 2012 12:13:02 LOAN FUNDER CPT-27859 Abd compl w upright 15:12:58 LOAN FUNDER CPT-54029 Venipuncture Draw Fee 14:38:32 LOAN FUNDER CPT-99980 Administration single or combination vaccine inc oral 17 :10:04 CDT CPT-33323 Gardasil 17:10:04 CDT CPT-80150 Venipuncture Draw Fee 16:07:54 LOAN FUNDER CPT-11512 Administration 2+ single or combination vaccines inc oral 17:22:02 CDT CPT-90652 Administration single or combination vaccine inc oral 17 :22:02 CDT CPT-41418 Influenza split virus > age 3 17:22:02 CDT CPT-46445 Gardasil 17:22:02 CDT CPT-58513 Administration 2+ single or combination vaccines inc oral 14:38:31 CDT CPT-99066 Administration single or combination vaccine inc oral 14 :38:31 CDT CPT-94546 Meningococcal Conjugate Vacine (Menactra) 14:38:31 CDT [facility]-34067 Gardasil 14:38:31 CDT
--- OUTSIDE RECORDS SUMMARY | 2018-02-15 07:30 | XMS REPORT | Clinical Summary ---
Author Author Admin, OLEG Organization [facility] Address Unknown Phone Unavailable Allergies, Adverse Reactions, [...] 6 hours as needed for cough GUAIFENESIN-CODEINE 37878705279 Active Kendell Coronado MD Active ZITHROMAX Z-MARY 250 MG TABS 2 today and then 1 daily for 4 days AZITHROMYCIN 60925255906 Active Kendell Coronado MD Active FLONASE 50 MCG/ACT SUSP 1 spray each nostril am and hs FLUTICASONE PROPIONATE 46128471340 No Longer Active Kendell Coronado MD Active MELOXICAM 15 MG TABS 1 po q day for pain with food MELOXICAM 23701906238 No Longer Active Kendell Coronado MD Active HYDROCODONE-ACETAMINOPHEN 5-325 MG TABS 1-2 q 4-6 hrs prn pain 20 tabs 07/04 HYDROCODONE-ACETAMINOPHEN 15911456796 No Longer Active Daniele Mcfadden DO Active PREDNISONE 20 MG TAB 1 tablet twice daily for 2 days, then 1 tablet once daily for 2 days PREDNISONE 78565999161 No Longer Active Daniele Mcfadden DO Active PREDNISONE 20 MG TAB 1 po bid 2 days, then daily for 2 days 12/27 PREDNISONE 65051904462 No Longer Active Alexander LOPEZ Active AZITHROMYCIN 250 MG TABS 2 po qd x 1 day, then 1 po qd x 4 days AZITHROMYCIN 51041008451 No Longer Active Daniele Mcfadden DO Active MUCINEX MAXIMUM STRENGTH [id number] 1 po qd GUAIFENESIN XR12H- TAB 35314736571 No Longer Active Daniele Mcfadden DO Active AZITHROMYCIN 250 MG TABS 2 po qd x 1 day, then 1 po qd x 4 days AZITHROMYCIN 69148125041 No Longer Active Margarito Kelley MD Active PROAIR HFA 108 (90 BASE) MCG/ACT AERS 2 puffs every 4 hours as needed ALBUTEROL SULFATE 43774381628 Active Mckenna Mayo LPN Active E-Z SPACER ERIBERTO use with proair inhalier every 4 times as need. SPACER/ AERO-HOLDING CHAMBERS 38893630576 Active Mckenna Mayo LPN Active IRVING-D ALLERGY & CONGESTION [id number] 1 po bid FEXOFENADINE -PSEUDOEPHEDRINE IN80E-ZWG 10254121188 Active Daniele Mcfadden DO Active MUCINEX MAXIMUM STRENGTH DE28X-UMY 1 po qd MUCINEX MAXIMUM STRENGTH WL62N-YYA GUAIFENESIN ZC52X-ZQQ Inactive PREDNISONE 20 MG TAB 1 po bid 2 days, then daily for 2 days 12/27 PREDNISONE 20 MG TAB 764839 PREDNISONE Inactive PREDNISONE 20 MG TAB 1 tablet twice daily for 2 days, then 1 tablet once daily for 2 days PREDNISONE 20 MG TAB 798847 PREDNISONE Inactive HYDROCODONE-ACETAMINOPHEN 5-325 MG TABS 1-2 q 4-6 hrs prn pain 20 tabs 07/04 HYDROCODONE-ACETAMINOPHEN 5-325 MG TABS 164575 HYDROCODONE- ACETAMINOPHEN Inactive MELOXICAM 15 MG TABS 1 po q day for pain with food MELOXICAM 15 MG TABS 642089 MELOXICAM Inactive FLONASE 50 MCG/ACT SUSP 1 spray each nostril am and hs FLONASE 50 MCG/ACT SUSP 803442 FLUTICASONE PROPIONATE Inactive AZITHROMYCIN 250 MG TABS 2 po qd x 1 day, then 1 po qd x 4 days AZITHROMYCIN 250 MG TABS 9609639 AZITHROMYCIN Inactive AZITHROMYCIN 250 MG TABS 2 po qd x 1 day, then 1 po qd x 4 days AZITHROMYCIN 250 MG TABS 6442401 AZITHROMYCIN Inactive Immunizations Vaccine Administration Date Value Standard Description Human Papillomavirus vaccine (Gardasil) #2, (HPV #2) Gardasil [ CVX62] human papilloma virus vaccine, quadrivalent Seasonal influenza vaccine, injectable, containing preservative, for > 3 years old (Afluria, FluLaval, Fluzone, Fluvirin, Fluarix, Agriflu(>=18 yo)) Fluzone (>3 yrs.) [[id number]] Influenza, seasonal, injectable Human Papillomavirus Vaccine (Gardasil) #1 Given (HPV #1) Gardasil [CVX62] human papilloma virus vaccine, quadrivalent hepatitis A immunization #2 Havrix-Pedi hepatitis A vaccine, unspecified formulation Boostrix (Tetanus toxoid, reduced diphtheria toxoid and acellular pertussis vaccine, adsorbed), booster Boostrix [[id number]] tetanus toxoid, reduced diphtheria toxoid, and acellular [...] AUTO - Chemistry sodium, serum 142 mmol/L 941-836 5756/11/12 potassium, serum 4.1 mmol/L 3.5-5.2 chloride, serum [...] 5.0-8.5 Encounters Code Encounter Date Provider Facility CPT-29532 Level 3 Est. Patient 12:00:17 CDT Kendell Coronado MD [facility] CPT-59432 Level 3 Est. Patient 12:27:25 CDT Daniele Mcfadden DO [facility] CPT-44683 Level 3 Est. Patient 18:45:11 HEAD START ASSISTANT TEACHER Daniele Mcfadden [facility] CPT-56283 Level 3 Est. Patient 10:12:24 HEAD START ASSISTANT TEACHER Daniele Mcfadden [facility] CPT-64059 Level 3 Est. Patient 14:35:11 HEAD START ASSISTANT TEACHER Daniele Mcfadden [facility] CPT-99334 Level 3 Est. Patient 14:11:04 CDT Daniele Mcfadden [facility] CPT-40657 Level 3 Est. Patient 10:52:13 CDT Alexander LOPEZ [facility] CPT-49249 Level 3 Est. Patient 11:01:08 HEAD START ASSISTANT TEACHER Daniele Mcfadden [facility] CPT-15497 Level 3 Est. Patient 10:55:35 CDT Daniele Mcfadden [facility] CPT-61236 Level 3 Est. Patient 14:03:08 CDT Daniele Gaetano Mcfadden [facility] CPT-09894 Level 3 Est. Patient 11:26:19 CDT Margarito Kelley MD [facility] CPT-30061 Level 2 Est. Patient 15:32:04 HEAD START ASSISTANT TEACHER Daniele Mcfadden [facility] CPT-32883 Level 3 Est. Patient 16:01:26 HEAD START ASSISTANT TEACHER Daniele Mcfadden [facility] CPT-38019 Level 3 Est. Patient 06:37:10 HEAD START ASSISTANT TEACHER Daniele Gaetano Mcfadden [facility] Procedures Code Procedure Name Date Entry Date Standard Description CPT-OV Office Visit 14:45:12 HEAD START ASSISTANT TEACHER CPT-79714 [employer] all organs plus proximal aorta and distal IVC 2012 12:13:02 HEAD START ASSISTANT TEACHER CPT-75384 Abd compl w upright 15:12:58 HEAD START ASSISTANT TEACHER CPT-92534 Venipuncture Draw Fee 14:38:32 HEAD START ASSISTANT TEACHER CPT-26312 Administration single or combination vaccine inc oral 17 :10:04 CDT CPT-22930 Gardasil 17:10:04 CDT CPT-84954 Venipuncture Draw Fee 16:07:54 HEAD START ASSISTANT TEACHER CPT-00062 Administration 2+ single or combination vaccines inc oral 17:22:02 CDT CPT-71786 Administration single or combination vaccine inc oral 17 :22:02 CDT CPT-52575 Influenza split virus > age 3 17:22:02 CDT CPT-54711 Gardasil 17:22:02 CDT CPT-53935 Administration 2+ single or combination vaccines inc oral 14:38:31 CDT CPT-24900 Administration single or combination vaccine inc oral 14 :38:31 CDT CPT-30080 Meningococcal Conjugate Vacine (Menactra) 14:38:31 CDT CPT-44088 Gardasil 14:38:31 CDT
--- OUTSIDE RECORDS SUMMARY | 2018-02-15 07:31 | XMS REPORT | Clinical Summary ---
Author Author Admin, OLEG Organization [facility] Address Unknown Phone Unavailable Allergies, Adverse Reactions, [...] 5, 1 pill on day 6 METHYLPREDNISOLONE 01766967632 Active Annita Mejia MD PhD Active ZITHROMAX Z-MARY 250 MG TABS 2 today and then 1 daily for 4 days AZITHROMYCIN 23955833261 No Longer Active Annita Mejia MD PhD Active GUAIFENESIN-CODEINE 100-10 MG/5ML SYRP 5ml every 4 to 6 hours as needed for cough GUAIFENESIN-CODEINE 52735211167 No Longer Active Annita Mejia MD PhD Active FLONASE 50 MCG/ACT SUSP 1 spray each nostril am and hs FLUTICASONE PROPIONATE 09541975392 No Longer Active Kendell Coronado MD Active MELOXICAM 15 MG TABS 1 po q day for pain with food MELOXICAM 87642004339 No Longer Active Kendell Coronado MD Active HYDROCODONE-ACETAMINOPHEN 5-325 MG TABS 1-2 q 4-6 hrs prn pain 20 tabs 07/04 HYDROCODONE-ACETAMINOPHEN 11479716484 No Longer Active Daniele Mcfadden DO Active PREDNISONE 20 MG TAB 1 tablet twice daily for 2 days, then 1 tablet once daily for 2 days PREDNISONE 08122088010 No Longer Active Daniele Mcfadden DO Active PREDNISONE 20 MG TAB 1 po bid 2 days, then daily for 2 days 12/27 PREDNISONE 72867056128 No Longer Active Alexander LOPEZ Active AZITHROMYCIN 250 MG TABS 2 po qd x 1 day, then 1 po qd x 4 days AZITHROMYCIN 67516149372 No Longer Active Daniele Mcfadden DO Active MUCINEX MAXIMUM STRENGTH LE58J-PHA 1 po qd GUAIFENESIN XR12H- TAB 44909047982 No Longer Active Daniele Mcfadden DO Active AZITHROMYCIN 250 MG TABS 2 po qd x 1 day, then 1 po qd x 4 days AZITHROMYCIN 81031009924 No Longer Active Margarito Kelley MD Active PROAIR HFA 108 (90 BASE) MCG/ACT AERS 2 puffs every 4 hours as needed ALBUTEROL SULFATE 21328943370 Active Mckenna Cabreraum [employer] P[employer]ONS INVESTIGATOR Active E-Z SPACER ERIBERTO use with proair inhalier every 4 times as need. SPACER/ AERO-HOLDING CHAMBERS 97718669883 Active Mckenna Mayo [employer] INVESTIGATOR Active IRVING-D ALLERGY & CONGESTION GS83L-BYP 1 po bid FEXOFENADINE -PSEUDOEPHEDRINE JA36F-UEQ 91147952282 Active Daniele Mcfadden DO Active MUCINEX MAXIMUM STRENGTH TH62V-EEK 1 po qd MUCINEX MAXIMUM STRENGTH LU61J-DHN GUAIFENESIN BU96Z-BDC Inactive PREDNISONE 20 MG TAB 1 po bid 2 days, then daily for 2 days 12/27 PREDNISONE 20 MG TAB 390426 PREDNISONE Inactive PREDNISONE 20 MG TAB 1 tablet twice daily for 2 days, then 1 tablet once daily for 2 days PREDNISONE 20 MG TAB 133988 PREDNISONE Inactive HYDROCODONE-ACETAMINOPHEN 5-325 MG TABS 1-2 q 4-6 hrs prn pain 20 tabs 07/04 HYDROCODONE-ACETAMINOPHEN 5-325 MG TABS 613544 HYDROCODONE- ACETAMINOPHEN Inactive MELOXICAM 15 MG TABS 1 po q day for pain with food MELOXICAM 15 MG TABS 437099 MELOXICAM Inactive FLONASE 50 MCG/ACT SUSP 1 spray each nostril am and hs FLONASE 50 MCG/ACT SUSP 566801 FLUTICASONE PROPIONATE Inactive GUAIFENESIN-CODEINE 100-10 MG/5ML SYRP 5ml every 4 to 6 hours as needed for cough GUAIFENESIN-CODEINE 100-10 MG/5ML SYRP 563829 GUAIFENESIN-CODEINE Inactive ZITHROMAX Z-MARY 250 MG TABS 2 today and then 1 daily for 4 days ZITHROMAX Z-MARY 250 MG TABS 1252574 AZITHROMYCIN Inactive AZITHROMYCIN 250 MG TABS 2 po qd x 1 day, then 1 po qd x 4 days AZITHROMYCIN 250 MG TABS 7981310 AZITHROMYCIN Inactive AZITHROMYCIN 250 MG TABS 2 po qd x 1 day, then 1 po qd x 4 days AZITHROMYCIN 250 MG TABS 3477324 AZITHROMYCIN Inactive Immunizations Vaccine Administration Date Value Standard Description Human Papillomavirus vaccine (Gardasil) #2, (HPV #2) Gardasil [ CVX62] human papilloma virus vaccine, quadrivalent Seasonal influenza vaccine, injectable, containing preservative, for > 3 years old (Afluria, FluLaval, Fluzone, Fluvirin, Fluarix, Agriflu(>=18 yo)) Fluzone (>3 yrs.) [[id number]] Influenza, seasonal, injectable Human Papillomavirus Vaccine (Gardasil) #1 Given (HPV #1) Gardasil [CVX62] human papilloma virus vaccine, quadrivalent hepatitis A immunization #2 Havrix-Pedi hepatitis A vaccine, unspecified formulation Boostrix (Tetanus toxoid, reduced diphtheria toxoid and acellular pertussis vaccine, adsorbed), booster Boostrix [[id number]] tetanus toxoid, reduced diphtheria toxoid, and acellular [...] AUTO - Chemistry sodium, serum 142 mmol/L 312-788 5127/11/12 potassium, serum 4.1 mmol/L 3.5-5.2 chloride, serum [...] 5.0-8.5 Encounters Code Encounter Date Provider Facility CPT-06387 Level 3 Est. Patient 11:08:45 CDT Annita Mejia MD PhD [facility]-49497 Level 3 Est. Patient 12:00:17 CDT Kendell Coronado MD [facility]-31835 Level 3 Est. Patient 12:27:25 CDT Daniele Mcfadden [facility] CPT-60311 Level 3 Est. Patient 18:45:11 COMMERCIAL RELIEF DRIVER Daniele Mcfadden [facility] CPT-25977 Level 3 Est. Patient 10:12:24 COMMERCIAL RELIEF DRIVER Daniele Mcfadden [facility] CPT-25064 Level 3 Est. Patient 14:35:11 COMMERCIAL RELIEF DRIVER Daniele Mcfadden [facility] CPT-47585 Level 3 Est. Patient 14:11:04 CDT Daniele Mcfadden [facility] CPT-14776 Level 3 Est. Patient 10:52:13 CDT Alexander LOPEZ [facility] CPT-29715 Level 3 Est. Patient 11:01:08 COMMERCIAL RELIEF DRIVER Daniele Mcfadden [facility] CPT-06527 Level 3 Est. Patient 10:55:35 CDT Daniele Mcfadden [facility]-64048 Level 3 Est. Patient 14:03:08 CDT Daniele Mcfadden [facility] CPT-22559 Level 3 Est. Patient 11:26:19 CDT Margarito Kelley MD [facility] CPT-39432 Level 2 Est. Patient 15:32:04 COMMERCIAL RELIEF DRIVER Daniele Gaetano Mcfadden [facility] CPT-47717 Level 3 Est. Patient 16:01:26 COMMERCIAL RELIEF DRIVER Daniele Salter Bogdan [facility] CPT-44681 Level 3 Est. Patient 06:37:10 COMMERCIAL RELIEF DRIVER Daniele Mcfadden [facility] Procedures Code Procedure Name Date Entry Date Standard Description CPT-OV Office Visit 14:45:12 COMMERCIAL RELIEF DRIVER CPT-36540 [employer] all organs plus proximal aorta and distal IVC 2012 12:13:02 COMMERCIAL RELIEF DRIVER CPT-95495 Abd compl w upright 15:12:58 COMMERCIAL RELIEF DRIVER CPT-73106 Venipuncture Draw Fee 14:38:32 COMMERCIAL RELIEF DRIVER CPT-15316 Administration single or combination vaccine inc oral 17 :10:04 CDT CPT-65149 Gardasil 17:10:04 CDT CPT-28851 Venipuncture Draw Fee 16:07:54 COMMERCIAL RELIEF DRIVER CPT-78959 Administration 2+ single or combination vaccines inc oral 17:22:02 CDT CPT-63263 Administration single or combination vaccine inc oral 17 :22:02 CDT CPT-69982 Influenza split virus > age 3 17:22:02 CDT CPT-04056 Gardasil 17:22:02 CDT CPT-81259 Administration 2+ single or combination vaccines inc oral 14:38:31 CDT CPT-41848 Administration single or combination vaccine inc oral 14 :38:31 CDT CPT-07479 Meningococcal Conjugate Vacine (Menactra) 14:38:31 CDT [facility]-72787 Gardasil 14:38:31 CDT
--- OUTSIDE RECORDS SUMMARY | 2018-02-15 07:32 | XMS REPORT | Clinical Summary ---
Author Author Admin, OLEG Organization [facility] Address Unknown Phone Unavailable Allergies, [...] pain, unspecified site Ankle sprain 845.00 Resolved eKndell Coronado MD Unspecified site of ankle sprain [...] times daily for ten days 06/25 CEPHALEXIN 68664586470 No Longer Active Renée Adames APRN Active MEDROL (MARY) 4 MG TABS 6 pills on day 1, 5 pills on day 2, 4 pills on day 3, 4 pills on day 4, 2 pills on day 5, 1 pill on day 6 METHYLPREDNISOLONE 12478202515 No Longer Active Annita Mejia MD PhD Active ZITHROMAX Z-MARY 250 MG TABS 2 today and then 1 daily for 4 days AZITHROMYCIN 80320851555 No Longer Active Annita Mejia MD PhD Active GUAIFENESIN-CODEINE 100-10 MG/5ML SYRP 5ml every 4 to 6 hours as needed for cough GUAIFENESIN-CODEINE 23997179590 No Longer Active Annita Mejia MD PhD Active FLONASE 50 MCG/ACT SUSP 1 spray each nostril am and hs FLUTICASONE PROPIONATE 80934766654 No Longer Active Kendell Coronado MD Active MELOXICAM 15 MG TABS 1 po q day for pain with food MELOXICAM 05203170620 No Longer Active Kendell Coronado MD Active HYDROCODONE-ACETAMINOPHEN 5-325 MG TABS 1-2 q 4-6 hrs prn pain 20 tabs 07/04 HYDROCODONE-ACETAMINOPHEN 72399417094 No Longer Active Daniele Mcfadden DO Active PREDNISONE 20 MG TAB 1 tablet twice daily for 2 days, then 1 tablet once daily for 2 days PREDNISONE 93293893319 No Longer Active Daniele Mcfadden DO Active PREDNISONE 20 MG TAB 1 po bid 2 days, then daily for 2 days 12/27 PREDNISONE 62887825975 No Longer Active Alexander LOPEZ Active AZITHROMYCIN 250 MG TABS 2 po qd x 1 day, then 1 po qd x 4 days AZITHROMYCIN 53189742934 No Longer Active Daniele Mcfadden DO Active MUCINEX MAXIMUM STRENGTH OL26I-DCB 1 po qd GUAIFENESIN XR12H- TAB 27016714417 No Longer Active Daniele Mcfadden DO Active AZITHROMYCIN 250 MG TABS 2 po qd x 1 day, then 1 po qd x 4 days AZITHROMYCIN 98925382569 No Longer Active Margarito Kelley MD Active PROAIR HFA 108 (90 BASE) MCG/ACT AERS 2 puffs every 4 hours as needed ALBUTEROL SULFATE 84738603380 Active Mckenna Mayo LPN Active E-Z SPACER ERIBERTO use with proair inhalier every 4 times as need. SPACER/ AERO-HOLDING CHAMBERS 71252728002 Active Mckenna Mayo LPN Active IRVING-D ALLERGY & CONGESTION TF41H-CZC 1 po bid FEXOFENADINE -PSEUDOEPHEDRINE TK62B-SJU 46728474771 Active Daniele Mcfadden DO Active MUCINEX MAXIMUM STRENGTH AX79I-QGT 1 po qd MUCINEX MAXIMUM STRENGTH XK52A-HWQ GUAIFENESIN OG40K-AVC Inactive PREDNISONE 20 MG TAB 1 po bid 2 days, then daily for 2 days 12/27 PREDNISONE 20 MG TAB 400398 PREDNISONE Inactive PREDNISONE 20 MG TAB 1 tablet twice daily for 2 days, then 1 tablet once daily for 2 days PREDNISONE 20 MG TAB 385982 PREDNISONE Inactive HYDROCODONE-ACETAMINOPHEN 5-325 MG TABS 1-2 q 4-6 hrs prn pain 20 tabs 07/04 HYDROCODONE-ACETAMINOPHEN 5-325 MG TABS 266670 HYDROCODONE- ACETAMINOPHEN Inactive MELOXICAM 15 MG TABS 1 po q day for pain with food MELOXICAM 15 MG TABS 923490 MELOXICAM Inactive FLONASE 50 MCG/ACT SUSP 1 spray each nostril am and hs FLONASE 50 MCG/ACT SUSP 585729 FLUTICASONE PROPIONATE Inactive GUAIFENESIN-CODEINE 100-10 MG/5ML SYRP 5ml every 4 to 6 hours as needed for cough GUAIFENESIN-CODEINE 100-10 MG/5ML SYRP 908677 GUAIFENESIN-CODEINE Inactive ZITHROMAX Z-MARY 250 MG TABS 2 today and then 1 daily for 4 days ZITHROMAX Z-MARY 250 MG TABS 1409371 AZITHROMYCIN Inactive AZITHROMYCIN 250 MG TABS 2 po qd x 1 day, then 1 po qd x 4 days AZITHROMYCIN 250 MG TABS 9092721 AZITHROMYCIN Inactive AZITHROMYCIN 250 MG TABS 2 po qd x 1 day, then 1 po qd x 4 days AZITHROMYCIN 250 MG TABS 8973714 AZITHROMYCIN Inactive MEDROL (MARY) 4 MG TABS 6 pills on day 1, 5 pills on day 2, 4 pills on day 3, 4 pills on day 4, 2 pills on day 5, 1 pill on day 6 MEDROL (MARY) 4 MG TABS METHYLPREDNISOLONE Inactive CEPHALEXIN 500 MG CAPS 1 tablet by mouth three times daily for ten days 06/25 CEPHALEXIN 500 MG CAPS 931248 CEPHALEXIN Inactive Immunizations Vaccine Administration Date Value Standard Description Human Papillomavirus vaccine (Gardasil) #2, (HPV #2) Gardasil [ CVX62] human papilloma virus vaccine, quadrivalent Seasonal influenza vaccine, injectable, containing preservative, for > 3 years old (Afluria, FluLaval, Fluzone, Fluvirin, Fluarix, Agriflu(>=18 yo)) Fluzone (>3 yrs.) [[id number]] Influenza, seasonal, injectable Human Papillomavirus Vaccine (Gardasil) #1 Given (HPV #1) Gardasil [CVX62] human papilloma virus vaccine, quadrivalent hepatitis A immunization #2 Havrix-Pedi hepatitis A vaccine, unspecified formulation Boostrix (Tetanus toxoid, reduced diphtheria toxoid and acellular pertussis vaccine, adsorbed), booster Boostrix [[id number]] tetanus toxoid, reduced diphtheria toxoid, and acellular [...] dipstick Negative Negative sodium, serum 136 mmol/L 557-757 4795/10/31 potassium, serum 4.4 mmol/L 3.5-5.2 chloride, serum [...] 5.0-8.5 Encounters Code Encounter Date Provider Facility CPT-81243 Level 3 Est. Patient 15:37:06 ENGINEER SYSTEM ADMINISTRATOR Daniele Mcfadden [facility] CPT-45412 Level 3 Est. Patient 11:56:34 ENGINEER SYSTEM ADMINISTRATOR Renée Robiberny JOHNSON [facility] CPT-30090 Level 3 Est. Patient 12:19:42 CDT Daniele Mcfdaden [facility]-05840 Level 3 Est. Patient 11:08:45 CDT Annita Mejia MD [facility] CPT-95255 Level 3 Est. Patient 12:00:17 CDT Kendell Coronado MD [facility]-83961 Level 3 Est. Patient 12:27:[address] [facility] CPT-89545 Level 3 Est. Patient 18:45:11 ENGINEER SYSTEM ADMINISTRATOR Daniele Mcfadden [facility] CPT-05257 Level 3 Est. Patient 10:12:24 ENGINEER SYSTEM ADMINISTRATOR Daniele Mcfadden [facility] CPT-06379 Level 3 Est. Patient 14:35:11 ENGINEER SYSTEM ADMINISTRATOR Daniele Mcfadden [facility] CPT-33825 Level 3 Est. Patient 14:11:[address] [facility] CPT-36957 Level 3 Est. Patient 10:52:13 CDT Alexander LOPEZ [facility]-65609 Level 3 Est. Patient 11:01:08 ENGINEER SYSTEM ADMINISTRATOR Daniele Mcfadden [facility] CPT-35621 Level 3 Est. Patient 10:55:35 CDT Daniele Mcfadden [facility]-72521 Level 3 Est. Patient 14:03:[address] [facility] CPT-99371 Level 3 Est. Patient 11:26:19 CDT Margarito Kelley MD [facility] CPT-94469 Level 2 Est. Patient 15:32:04 ENGINEER SYSTEM ADMINISTRATOR Daniele Mcfadden [facility] CPT-91672 Level 3 Est. Patient 16:01:26 ENGINEER SYSTEM ADMINISTRATOR Daniele Salter Bogdan [facility] CPT-91007 Level 3 Est. Patient 06:37:10 ENGINEER SYSTEM ADMINISTRATOR Daniele Gaetano Bogdan [facility] Procedures Code Procedure Name Date Entry Date Standard Description CPT-04326 Abd compl w upright 12:34:39 CDT CPT-69088 Immunization Single Admin 11:38:41 CDT CPT-08830 Fluzone Quadrivalent Intramuscular Suspension 0.5 ML 11: 38:41 CDT CPT-OV Office Visit 14:45:12 ENGINEER SYSTEM ADMINISTRATOR CPT-92723 [employer] inc all organs plus proximal aorta and distal IVC 2012 12:13:02 ENGINEER SYSTEM ADMINISTRATOR CPT-53059 Abd compl w upright 15:12:58 ENGINEER SYSTEM ADMINISTRATOR CPT-42219 Venipuncture Draw Fee 14:38:32 ENGINEER SYSTEM ADMINISTRATOR CPT-59478 Administration single or combination vaccine inc oral 17 :10:04 CDT CPT-07870 Gardasil 17:10:04 CDT CPT-41750 Venipuncture Draw Fee 16:07:54 ENGINEER SYSTEM ADMINISTRATOR CPT-22711 Administration 2+ single or combination vaccines inc oral 17:22:02 CDT CPT-73421 Administration single or combination vaccine inc oral 17 :22:02 CDT CPT-31526 Influenza split virus > age 3 17:22:02 CDT CPT-72899 Gardasil 17:22:02 CDT CPT-93893 Administration 2+ single or combination vaccines inc oral 14:38:31 CDT CPT-25105 Administration single or combination vaccine inc oral 14 :38:31 CDT CPT-22148 Meningococcal Conjugate Vacine (Menactra) 14:38:31 CDT CPT-66769 Gardasil 14:38:31 CDT
--- OUTSIDE RECORDS SUMMARY | 2018-02-15 07:33 | XMS REPORT | Clinical Summary ---
Author Author Admin, OLEG Organization [facility] Address Unknown Phone Unavailable Allergies, Adverse [...] 6 hours as needed for cough GUAIFENESIN-CODEINE 48133696357 Active Kendell Coronado MD Active ZITHROMAX Z-MARY 250 MG TABS 2 today and then 1 daily for 4 days AZITHROMYCIN 50403610271 Active Kendell Coronado MD Active FLONASE 50 MCG/ACT SUSP 1 spray each nostril am and hs FLUTICASONE PROPIONATE 08883566920 No Longer Active Kendell Coronado MD Active MELOXICAM 15 MG TABS 1 po q day for pain with food MELOXICAM 68642422279 No Longer Active Kendell Coronado MD Active HYDROCODONE-ACETAMINOPHEN 5-325 MG TABS 1-2 q 4-6 hrs prn pain 20 tabs 07/04 HYDROCODONE-ACETAMINOPHEN 37163074469 No Longer Active Daniele Mcfadden DO Active PREDNISONE 20 MG TAB 1 tablet twice daily for 2 days, then 1 tablet once daily for 2 days PREDNISONE 52486259186 No Longer Active Daniele Mcfadden DO Active PREDNISONE 20 MG TAB 1 po bid 2 days, then daily for 2 days 12/27 PREDNISONE 60527518717 No Longer Active Alexander LOPEZ Active AZITHROMYCIN 250 MG TABS 2 po qd x 1 day, then 1 po qd x 4 days AZITHROMYCIN 90537519225 No Longer Active Daniele Mcfadden DO Active MUCINEX MAXIMUM STRENGTH [id number] 1 po qd GUAIFENESIN XR12H- TAB 57588321813 No Longer Active Daniele Mcfadden DO Active AZITHROMYCIN 250 MG TABS 2 po qd x 1 day, then 1 po qd x 4 days AZITHROMYCIN 42086932351 No Longer Active Margarito Kelley MD Active PROAIR HFA 108 (90 BASE) MCG/ACT AERS 2 puffs every 4 hours as needed ALBUTEROL SULFATE 83423165739 Active Mckenna Mayo LPN Active E-Z SPACER ERIBERTO use with proair inhalier every 4 times as need. SPACER/ AERO-HOLDING CHAMBERS 66230825060 Active Mckenna Mayo LPN Active IRVING-D ALLERGY & CONGESTION JA27L-PTO 1 po bid FEXOFENADINE -PSEUDOEPHEDRINE QQ23M-BRQ 10543022319 Active Daniele Mcfadden DO Active MUCINEX MAXIMUM STRENGTH TM89D-KNI 1 po qd MUCINEX MAXIMUM STRENGTH CT50S-DLR GUAIFENESIN BH58Q-LFN Inactive PREDNISONE 20 MG TAB 1 po bid 2 days, then daily for 2 days 12/27 PREDNISONE 20 MG TAB 947268 PREDNISONE Inactive PREDNISONE 20 MG TAB 1 tablet twice daily for 2 days, then 1 tablet once daily for 2 days PREDNISONE 20 MG TAB 415806 PREDNISONE Inactive HYDROCODONE-ACETAMINOPHEN 5-325 MG TABS 1-2 q 4-6 hrs prn pain 20 tabs 07/04 HYDROCODONE-ACETAMINOPHEN 5-325 MG TABS 931764 HYDROCODONE- ACETAMINOPHEN Inactive MELOXICAM 15 MG TABS 1 po q day for pain with food MELOXICAM 15 MG TABS 909405 MELOXICAM Inactive FLONASE 50 MCG/ACT SUSP 1 spray each nostril am and hs FLONASE 50 MCG/ACT SUSP 100839 FLUTICASONE PROPIONATE Inactive AZITHROMYCIN 250 MG TABS 2 po qd x 1 day, then 1 po qd x 4 days AZITHROMYCIN 250 MG TABS 0306536 AZITHROMYCIN Inactive AZITHROMYCIN 250 MG TABS 2 po qd x 1 day, then 1 po qd x 4 days AZITHROMYCIN 250 MG TABS 7444615 AZITHROMYCIN Inactive Immunizations Vaccine Administration Date Value Standard Description Human Papillomavirus vaccine (Gardasil) #2, (HPV #2) Gardasil [ CVX62] human papilloma virus vaccine, quadrivalent Seasonal influenza vaccine, injectable, containing preservative, for > 3 years old (Afluria, FluLaval, Fluzone, Fluvirin, Fluarix, Agriflu(>=18 yo)) Fluzone (>3 yrs.) [[id number]] Influenza, seasonal, injectable Human Papillomavirus Vaccine (Gardasil) #1 Given (HPV #1) Gardasil [CVX62] human papilloma virus vaccine, quadrivalent hepatitis A immunization #2 Havrix-Pedi hepatitis A vaccine, unspecified formulation Boostrix (Tetanus toxoid, reduced diphtheria toxoid and acellular pertussis vaccine, adsorbed), booster Boostrix [[id number]] tetanus toxoid, reduced diphtheria toxoid, and acellular [...] AUTO - Chemistry sodium, serum 142 mmol/L 615-688 5377/11/12 potassium, serum 4.1 mmol/L 3.5-5.2 chloride, serum [...] 5.0-8.5 Encounters Code Encounter Date Provider Facility CPT-96843 Level 3 Est. Patient 12:00:17 CDT Kendell Coronado MD [facility] CPT-21643 Level 3 Est. Patient 12:27:25 CDT Daniele Mcfadden [facility] CPT-28617 Level 3 Est. Patient 18:45:11 SOCIAL WORKER ASSISTANT Daniele Mcfadden [facility] CPT-87608 Level 3 Est. Patient 10:12:24 SOCIAL WORKER ASSISTANT Daniele Mcfadden DO [facility] CPT-12889 Level 3 Est. Patient 14:35:11 SOCIAL WORKER ASSISTANT Daniele Mcfadden [facility] CPT-95440 Level 3 Est. Patient 14:11:04 CDT Daniele Mcfadden [facility] CPT-55873 Level 3 Est. Patient 10:52:[address] [facility] CPT-95420 Level 3 Est. Patient 11:01:08 SOCIAL WORKER ASSISTANT Daniele Mcfadden [facility] CPT-32639 Level 3 Est. Patient 10:55:35 CDT Daniele Mcfadden [facility] CPT-20024 Level 3 Est. Patient 14:03:08 CDT Daniele Mcfadden [facility] CPT-72662 Level 3 Est. Patient 11:26:19 CDT Margarito Kelley MD [facility] CPT-40378 Level 2 Est. Patient 15:32:04 SOCIAL WORKER ASSISTANT Daniele Mcfadden [facility] CPT-34394 Level 3 Est. Patient 16:01:26 SOCIAL WORKER ASSISTANT Daniele Mcfadden [facility] CPT-55364 Level 3 Est. Patient 06:37:10 SOCIAL WORKER ASSISTANT Daniele Mcfadden [facility] Procedures Code Procedure Name Date Entry Date Standard Description CPT-OV Office Visit 14:45:12 SOCIAL WORKER ASSISTANT CPT-19821 [employer] all organs plus proximal aorta and distal IVC 2012 12:13:02 SOCIAL WORKER ASSISTANT CPT-53894 Abd compl w upright 15:12:58 SOCIAL WORKER ASSISTANT CPT-12674 Venipuncture Draw Fee 14:38:32 SOCIAL WORKER ASSISTANT CPT-77988 Administration single or combination vaccine inc oral 17 :10:04 CDT CPT-75234 Gardasil 17:10:04 CDT CPT-94445 Venipuncture Draw Fee 16:07:54 SOCIAL WORKER ASSISTANT CPT-91700 Administration 2+ single or combination vaccines inc oral 17:22:02 CDT CPT-92372 Administration single or combination vaccine inc oral 17 :22:02 CDT CPT-70640 Influenza split virus > age 3 17:22:02 CDT CPT-46391 Gardasil 17:22:02 CDT CPT-60892 Administration 2+ single or combination vaccines inc oral 14:38:31 CDT CPT-50987 Administration single or combination vaccine inc oral 14 :38:31 CDT CPT-08779 Meningococcal Conjugate Vacine (Menactra) 14:38:31 CDT CPT-50936 Gardasil 14:38:31 CDT
--- OUTSIDE RECORDS SUMMARY | 2018-02-15 07:33 | XMS REPORT | Clinical Summary ---
[...] Mcfadden DO Abdominal pain ICD-789.00 Inactive Kendell Coornado MD Ankle sprain ICD-845.00 Inactive Kendell Coronado [...] 5, 1 pill on day 6 METHYLPREDNISOLONE 90380347938 No Longer Active Annita Mejia MD PhD Active ZITHROMAX Z-MARY 250 MG TABS 2 today and then 1 daily for 4 days AZITHROMYCIN 73531075650 No Longer Active Annita Mejia MD PhD Active GUAIFENESIN-CODEINE 100-10 MG/5ML SYRP 5ml every 4 to 6 hours as needed for cough GUAIFENESIN-CODEINE 50174198702 No Longer Active Annita Mejia MD PhD Active FLONASE 50 MCG/ACT SUSP 1 spray each nostril am and hs FLUTICASONE PROPIONATE 79774325597 No Longer Active Kendell Coronado MD Active MELOXICAM 15 MG TABS 1 po q day for pain with food MELOXICAM 72240113979 No Longer Active Kendell Coronado MD Active HYDROCODONE-ACETAMINOPHEN 5-325 MG TABS 1-2 q 4-6 hrs prn pain 20 tabs 07/04 HYDROCODONE-ACETAMINOPHEN 42851279019 No Longer Active Daniele Mcfadden DO Active PREDNISONE 20 MG TAB 1 tablet twice daily for 2 days, then 1 tablet once daily for 2 days PREDNISONE 60435105440 No Longer Active Daniele Mcfadden DO Active PREDNISONE 20 MG TAB 1 po bid 2 days, then daily for 2 days 12/27 PREDNISONE 48386293828 No Longer Active Alexander LOPEZ Active AZITHROMYCIN 250 MG TABS 2 po qd x 1 day, then 1 po qd x 4 days AZITHROMYCIN 50691497082 No Longer Active Daniele Mcfadden DO Active MUCINEX MAXIMUM STRENGTH XE11D-KSZ 1 po qd GUAIFENESIN XR12H- TAB 34815307277 No Longer Active Daniele Mcfadden DO Active AZITHROMYCIN 250 MG TABS 2 po qd x 1 day, then 1 po qd x 4 days AZITHROMYCIN 18293670638 No Longer Active Margarito Kelley MD Active PROAIR HFA 108 (90 BASE) MCG/ACT AERS 2 puffs every 4 hours as needed ALBUTEROL SULFATE 37061707971 Active Mckenna Mayo LPN Active E-Z SPACER ERIBERTO use with proair inhalier every 4 times as need. SPACER/ AERO-HOLDING CHAMBERS 90006949137 Active Mckenna Cabreraum [employer]ER [employer] Active IRVING-D ALLERGY & CONGESTION ES44S-TTW 1 po bid FEXOFENADINE -PSEUDOEPHEDRINE EL78U-FCN 08365607461 Active Daniele Mcfadden DO Active MUCINEX MAXIMUM STRENGTH IB15H-ZLI 1 po qd MUCINEX MAXIMUM STRENGTH SS85S-RDK GUAIFENESIN OB32T-JLI Inactive PREDNISONE 20 MG TAB 1 po bid 2 days, then daily for 2 days 12/27 PREDNISONE 20 MG TAB 697186 PREDNISONE Inactive PREDNISONE 20 MG TAB 1 tablet twice daily for 2 days, then 1 tablet once daily for 2 days PREDNISONE 20 MG TAB 910353 PREDNISONE Inactive HYDROCODONE-ACETAMINOPHEN 5-325 MG TABS 1-2 q 4-6 hrs prn pain 20 tabs 07/04 HYDROCODONE-ACETAMINOPHEN 5-325 MG TABS 981229 HYDROCODONE- ACETAMINOPHEN Inactive MELOXICAM 15 MG TABS 1 po q day for pain with food MELOXICAM 15 MG TABS 650714 MELOXICAM Inactive FLONASE 50 MCG/ACT SUSP 1 spray each nostril am and hs FLONASE 50 MCG/ACT SUSP 866348 FLUTICASONE PROPIONATE Inactive GUAIFENESIN-CODEINE 100-10 MG/5ML SYRP 5ml every 4 to 6 hours as needed for cough GUAIFENESIN-CODEINE 100-10 MG/5ML SYRP 480040 GUAIFENESIN-CODEINE Inactive ZITHROMAX Z-MARY 250 MG TABS 2 today and then 1 daily for 4 days ZITHROMAX Z-MARY 250 MG TABS 2656921 AZITHROMYCIN Inactive AZITHROMYCIN 250 MG TABS 2 po qd x 1 day, then 1 po qd x 4 days AZITHROMYCIN 250 MG TABS 5114555 AZITHROMYCIN Inactive AZITHROMYCIN 250 MG TABS 2 po qd x 1 day, then 1 po qd x 4 days AZITHROMYCIN 250 MG TABS 2770984 AZITHROMYCIN Inactive MEDROL (MARY) 4 MG TABS [...] Fluvirin, Fluarix, Agriflu(>=18 yo)) Fluzone (>3 yrs.) [LJC624] Influenza, seasonal, injectable Human Papillomavirus Vaccine (Gardasil) #1 Given (HPV #1) Gardasil [CVX62] human papilloma virus vaccine, quadrivalent hepatitis A immunization #2 Havrix-Pedi hepatitis A vaccine, unspecified formulation Combined Klsvmctuat-Czaosph-irqflfacz Pertussis (dTpa) Vaccine - Booster 12/02 Boostrix [[id number]] tetanus toxoid, reduced diphtheria toxoid, and acellular [...] Metabolic Panel, UADIP W/MICRO, AUTO - Chemistry potassium, serum 4.1 mmol/L 3.5-5.2 chloride, serum [...] RBC, urine, dipstick Negative Negative sodium, serum 142 mmol/L 136-145 Lab Report: CBC, Comp. Metabolic Panel, UADIP W/MICRO, AUTO - Hematology platelet count 212 10^3/MM^3 10*3/mm3 232-782 7790/11/12 red blood cell distribution width 13.8 % [...] 5.0-8.5 Encounters Code Encounter Date Provider Facility CPT-95567 Level 3 Est. Patient 11:08:45 CDT Annita Mejia MD PhD [facility]-45596 Level 3 Est. Patient 12:00:17 CDT Kendell Coronado MD [facility]-34717 Level 3 Est. Patient 12:27:25 CDT Daniele Mcfadden [facility] [place]-98339 Level 3 Est. Patient 18:45:11 DINKEY ENGINE FIRER Daniele Mcfadden [facility] [place]-96008 Level 3 Est. Patient 10:12:24 DINKEY ENGINE FIRER Daniele Mcfadden [facility] CPT-05633 Level 3 Est. Patient 14:35:11 DINKEY ENGINE FIRER Daniele Mcfadden [facility] CPT-06461 Level 3 Est. Patient 14:11:04 CDT Daniele Mcfadden [facility] CPT-35124 Level 3 Est. Patient 10:52:13 CDT Alexander LOPEZ [facility]-44564 Level 3 Est. Patient 11:01:08 DINKEY ENGINE FIRER Daniele Mcfadden [facility] CPT-71934 Level 3 Est. Patient 10:55:35 CDT Daniele Mcfadden [facility]-94060 Level 3 Est. Patient 14:03:08 CDT Daniele Mcfadden [facility] [place]-97539 Level 3 Est. Patient 11:26:19 CDT Margarito Kelley MD [facility]-62274 Level 2 Est. Patient 15:32:04 DINKEY ENGINE FIRER Daniele Mcfadden [facility] [place]-18273 Level 3 Est. Patient 16:01:26 DINKEY ENGINE FIRER Daniele Mcfadden [facility] CPT-78757 Level 3 Est. Patient 06:37:10 DINKEY ENGINE FIRER Daniele Mcfadden [facility] Procedures Code Procedure Name Date Entry Date Standard Description CPT-73393 Immunization Single Admin 11:38:41 CDT CPT-99669 Fluzone Quadrivalent Intramuscular Suspension 0.5 ML 11: 38:41 CDT CPT-OV Office Visit 14:45:12 DINKEY ENGINE FIRER CPT-64811 [employer] all organs plus proximal aorta and distal IVC 2012 12:13:02 DINKEY ENGINE FIRER CPT-96568 Abd compl w upright 15:12:58 DINKEY ENGINE FIRER CPT-18263 Venipuncture Draw Fee 14:38:32 DINKEY ENGINE FIRER CPT-51106 Administration single or combination vaccine inc oral 17 :10:04 CDT CPT-54504 Gardasil 17:10:04 CDT CPT-50016 Venipuncture Draw Fee 16:07:54 DINKEY ENGINE FIRER CPT-92146 Administration 2+ single or combination vaccines inc oral 17:22:02 CDT CPT-37158 Administration single or combination vaccine inc oral 17 :22:02 CDT CPT-34266 Influenza split virus > age 3 17:22:02 CDT CPT-56318 Gardasil 17:22:02 CDT CPT-95776 Administration 2+ single or combination vaccines inc oral 14:38:31 CDT CPT-29203 Administration single or combination vaccine inc oral 14 :38:31 CDT CPT-87099 Meningococcal Conjugate Vacine (Menactra) 14:38:31 CDT [facility]-44558 Gardasil 14:38:31 CDT
--- OUTSIDE RECORDS SUMMARY | 2018-02-15 07:34 | XMS REPORT | Clinical Summary ---
Author Author Admin, OLEG Organization [facility] Address Unknown Phone Unavailable Allergies, Adverse Reactions, [...] infections of unspecified site Abdominal pain 789.00 Active Daniele Mcfadden DO Abdominal pain, unspecified site Ankle sprain 845.00 Active Daniele Mcfadden DO Unspecified site of ankle sprain ALLERGIC RHINITIS ICD-477.9 Inactive Errol Pack MD [...] R I ICD-465.9 Inactive Daniele Mcfadden DO Medication List Medication Instructions Start Date Stop Date Generic Name NDC Status Provider Patient Instruction MELOXICAM 15 MG TABS 1 po q day for pain with food MELOXICAM 89344769218 Active Daniele Mcfadden DO Active HYDROCODONE-ACETAMINOPHEN 5-325 MG TABS 1-2 q 4-6 hrs prn pain 20 tabs 07/04 HYDROCODONE-ACETAMINOPHEN 06573261233 No Longer Active Daniele Mcfadden DO Active PREDNISONE 20 MG TAB 1 tablet twice daily for 2 days, then 1 tablet once daily for 2 days PREDNISONE 24153329972 No Longer Active Daniele Mcfadden DO Active PREDNISONE 20 MG TAB 1 po bid 2 days, then daily for 2 days 12/27 PREDNISONE 42344980901 No Longer Active Alexander LOPEZ Active AZITHROMYCIN 250 MG TABS 2 po qd x 1 day, then 1 po qd x 4 days AZITHROMYCIN 10008100025 No Longer Active Daniele Mcfadden DO Active MUCINEX MAXIMUM STRENGTH UI48B-PIG 1 po qd GUAIFENESIN XR12H- TAB 20426595648 No Longer Active Daniele Mcfadden DO Active AZITHROMYCIN 250 MG TABS 2 po qd x 1 day, then 1 po qd x 4 days AZITHROMYCIN 43417570690 No Longer Active Margarito Kelley MD Active FLONASE 50 MCG/ACT SUSP 1 spray each nostril am and hs FLUTICASONE PROPIONATE 92768234378 Active Daniele Mcfadden DO Active PROAIR HFA 108 (90 BASE) MCG/ACT AERS 2 puffs every 4 hours as needed ALBUTEROL SULFATE 51467075317 Active Mckenna Cabreraum DEGREE CLERK Active E-Z SPACER ERIBERTO use with proair inhalier every 4 times as need. SPACER/ AERO-HOLDING CHAMBERS 85117098275 Active Mckenna Cabreraum DEGREE CLERK Active IRVING-D ALLERGY & CONGESTION RV07A-PWE 1 po bid FEXOFENADINE -PSEUDOEPHEDRINE ZV90P-JAF 98547070018 Active Daniele Mcfadden DO Active MUCINEX MAXIMUM STRENGTH OJ45F-GZF 1 po qd MUCINEX MAXIMUM STRENGTH HQ16L-GLM GUAIFENESIN FX94B-LIO Inactive PREDNISONE 20 MG TAB 1 po bid 2 days, then daily for 2 days 12/27 PREDNISONE 20 MG TAB 265262 PREDNISONE Inactive PREDNISONE 20 MG TAB 1 tablet twice daily for 2 days, then 1 tablet once daily for 2 days PREDNISONE 20 MG TAB 745676 PREDNISONE Inactive HYDROCODONE-ACETAMINOPHEN 5-325 MG TABS 1-2 q 4-6 hrs prn pain 20 tabs 07/04 HYDROCODONE-ACETAMINOPHEN 5-325 MG TABS 100383 HYDROCODONE- ACETAMINOPHEN Inactive AZITHROMYCIN 250 MG TABS 2 po qd x 1 day, then 1 po qd x 4 days AZITHROMYCIN 250 MG TABS 0430356 AZITHROMYCIN Inactive AZITHROMYCIN 250 MG TABS 2 po qd x 1 day, then 1 po qd x 4 days AZITHROMYCIN 250 MG TABS 7388345 AZITHROMYCIN Inactive Immunizations Vaccine Administration Date Value Standard Description Human Papillomavirus vaccine (Gardasil) #2, (HPV #2) Gardasil [ CVX62] human papilloma virus vaccine, quadrivalent Seasonal influenza vaccine, injectable, containing preservative, for > 3 years old (Afluria, FluLaval, Fluzone, Fluvirin, Fluarix, Agriflu(>=18 yo)) Fluzone (>3 yrs.) [[id number]] Influenza, seasonal, injectable Human Papillomavirus Vaccine (Gardasil) #1 Given (HPV #1) Gardasil [CVX62] human papilloma virus vaccine, quadrivalent hepatitis A immunization #2 Havrix-Pedi hepatitis A vaccine, unspecified formulation Boostrix (Tetanus toxoid, reduced diphtheria toxoid and acellular pertussis vaccine, adsorbed), booster Boostrix [[id number]] tetanus toxoid, reduced diphtheria toxoid, and acellular [...] Range Description blood pressure, diastolic - 8462-4 72 mm[Hg] [...] AUTO - Chemistry sodium, serum 142 mmol/L 053-253 7371/11/12 potassium, serum 4.1 mmol/L 3.5-5.2 chloride, serum [...] 5.0-8.5 Encounters Code Encounter Date Provider Facility CPT-50375 Level 3 Est. Patient 12:27:25 CDT Daniele Mcfadden [facility] CPT-57914 Level 3 Est. Patient 18:45:11 FILL MANAGER Daniele Mcfadden [facility] CPT-06616 Level 3 Est. Patient 10:12:24 FILL MANAGER Daniele Mcfadden [facility] CPT-79220 Level 3 Est. Patient 14:35:11 FILL MANAGER Daniele Mcfadden [facility] CPT-36258 Level 3 Est. Patient 14:11:04 CDT Daniele Mcfadden [facility] CPT-24585 Level 3 Est. Patient 10:52:13 CDT Alexander Estrada [facility] CPT-84737 Level 3 Est. Patient 11:01:08 FILL MANAGER Daniele Mcfadden [facility] CPT-32103 Level 3 Est. Patient 10:55:35 CDT Daniele Mcfadden [facility] CPT-37112 Level 3 Est. Patient 14:03:08 CDT Daniele Mcfadden [facility] CPT-86609 Level 3 Est. Patient 11:26:19 CDT Margarito Kelley MD [facility] CPT-40971 Level 2 Est. Patient 15:32:04 FILL MANAGER Daniele Mcfadden [facility] CPT-21699 Level 3 Est. Patient 16:01:26 FILL MANAGER Daniele Gaetano Bogdan [facility] CPT-77620 Level 3 Est. Patient 06:37:10 FILL MANAGER Daniele Gaetano Mcfadden [facility] Procedures Code Procedure Name Date Entry Date Standard Description CPT-OV Office Visit 14:45:12 FILL MANAGER CPT-08642 [employer] all organs plus proximal aorta and distal IVC 2012 12:13:02 FILL MANAGER CPT-05753 Abd compl w upright 15:12:58 FILL MANAGER CPT-19125 Venipuncture Draw Fee 14:38:32 FILL MANAGER CPT-34189 Administration single or combination vaccine inc oral 17 :10:04 CDT CPT-72096 Gardasil 17:10:04 CDT CPT-76218 Venipuncture Draw Fee 16:07:54 FILL MANAGER CPT-57426 Administration 2+ single or combination vaccines inc oral 17:22:02 CDT CPT-79130 Administration single or combination vaccine inc oral 17 :22:02 CDT CPT-98880 Influenza split virus > age 3 17:22:02 CDT CPT-79529 Gardasil 17:22:02 CDT CPT-06503 Administration 2+ single or combination vaccines inc oral 14:38:31 CDT CPT-58853 Administration single or combination vaccine inc oral 14 :38:31 CDT CPT-25848 Meningococcal Conjugate Vacine (Menactra) 14:38:31 CDT CPT-05727 Gardasil 14:38:31 CDT
--- OUTSIDE RECORDS SUMMARY | 2018-02-15 07:34 | XMS REPORT | Clinical Summary ---
[...] 6 hours as needed for cough GUAIFENESIN-CODEINE [id number] Active Kendell Coronado MD Active ZITHROMAX Z-MARY 250 MG TABS 2 today and then 1 daily for 4 days AZITHROMYCIN 07217102687 Active Kendell Coronado MD Active FLONASE 50 MCG/ACT SUSP 1 spray each nostril am and hs FLUTICASONE PROPIONATE 12308764044 No Longer Active Kendell Coronado MD Active MELOXICAM 15 MG TABS 1 po q day for pain with food MELOXICAM 48791191510 No Longer Active Kendell Coronado MD Active HYDROCODONE-ACETAMINOPHEN 5-325 MG TABS 1-2 q 4-6 hrs prn pain 20 tabs 07/04 HYDROCODONE-ACETAMINOPHEN 61875285733 No Longer Active Daniele Mcfadden DO Active PREDNISONE 20 MG TAB 1 tablet twice daily for 2 days, then 1 tablet once daily for 2 days PREDNISONE 03001059443 No Longer Active Daniele Mcfadden DO Active PREDNISONE 20 MG TAB 1 po bid 2 days, then daily for 2 days 12/27 PREDNISONE 73978238396 No Longer Active Alexander LOPEZ Active AZITHROMYCIN 250 MG TABS 2 po qd x 1 day, then 1 po qd x 4 days AZITHROMYCIN 53802042647 No Longer Active Daniele Mcfadden DO Active MUCINEX MAXIMUM STRENGTH [id number]-RVR 1 po qd GUAIFENESIN XR12H- TAB 62646692151 No Longer Active Daniele Mcfadden DO Active AZITHROMYCIN 250 MG TABS 2 po qd x 1 day, then 1 po qd x 4 days AZITHROMYCIN 48128426544 No Longer Active Margarito Kelley MD Active PROAIR HFA 108 (90 BASE) MCG/ACT AERS 2 puffs every 4 hours as needed ALBUTEROL SULFATE 35792755128 Active Mckenna Mayo LPN Active E-Z SPACER ERIBERTO use with proair inhalier every 4 times as need. SPACER/ AERO-HOLDING CHAMBERS 26691003085 Active Mckenna Mayo LPN Active IRVING-D ALLERGY & CONGESTION OR95C-JJY 1 po bid FEXOFENADINE -PSEUDOEPHEDRINE [id number] 11634961526 Active Daniele Mcfadden DO Active MUCINEX MAXIMUM STRENGTH XL48G-BHT 1 po qd MUCINEX MAXIMUM STRENGTH MD56T-MML GUAIFENESIN SS06U-AOX Inactive PREDNISONE 20 MG TAB 1 po bid 2 days, then daily for 2 days 12/27 PREDNISONE 20 MG TAB 288837 PREDNISONE Inactive PREDNISONE 20 MG TAB 1 tablet twice daily for 2 days, then 1 tablet once daily for 2 days PREDNISONE 20 MG TAB 890445 PREDNISONE Inactive HYDROCODONE-ACETAMINOPHEN 5-325 MG TABS 1-2 q 4-6 hrs prn pain 20 tabs 07/04 HYDROCODONE-ACETAMINOPHEN 5-325 MG TABS 380891 HYDROCODONE- ACETAMINOPHEN Inactive MELOXICAM 15 MG TABS 1 po q day for pain with food MELOXICAM 15 MG TABS 338940 MELOXICAM Inactive FLONASE 50 MCG/ACT SUSP 1 spray each nostril am and hs FLONASE 50 MCG/ACT SUSP 943767 FLUTICASONE PROPIONATE Inactive AZITHROMYCIN 250 MG TABS 2 po qd x 1 day, then 1 po qd x 4 days AZITHROMYCIN 250 MG TABS 5067037 AZITHROMYCIN Inactive AZITHROMYCIN 250 MG TABS 2 po qd x 1 day, then 1 po qd x 4 days AZITHROMYCIN 250 MG TABS 7542973 AZITHROMYCIN Inactive Immunizations Vaccine Administration Date Value Standard Description Seasonal influenza vaccine, injectable, containing preservative, for > 3 years old (Afluria, FluLaval, Fluzone, Fluvirin, Fluarix, Agriflu(>=18 yo)) Fluzone (>3 yrs.) [[id number]] Influenza, seasonal, injectable Human Papillomavirus vaccine (Gardasil) #2, (HPV #2) Gardasil [ CVX62] human papilloma virus vaccine, quadrivalent Human Papillomavirus Vaccine (Gardasil) #1 Given (HPV #1) Gardasil [CVX62] human papilloma virus vaccine, quadrivalent hepatitis A immunization #2 Havrix-Pedi hepatitis A vaccine, unspecified formulation Boostrix (Tetanus toxoid, reduced diphtheria toxoid and acellular pertussis vaccine, adsorbed), booster Boostrix [[id number]] tetanus toxoid, reduced diphtheria toxoid, and acellular [...] AUTO - Chemistry sodium, serum 142 mmol/L 312-431 7800/11/12 potassium, serum 4.1 mmol/L 3.5-5.2 chloride, serum [...] 5.0-8.5 Encounters Code Encounter Date Provider Facility CPT-40482 Level 3 Est. Patient 12:00:17 CDT Kendell Coronado MD [facility] CPT-47391 Level 3 Est. Patient 12:27:25 CDT Daniele Mcfadden DO [facility] CPT-57632 Level 3 Est. Patient 18:45:11 X [employer]AY [employer] WIRING TECHNICIAN Daniele Mcfadden [facility] CPT-31266 Level 3 Est. Patient 10:12:24 X [employer] WIRING TECHNICIAN Daniele Mcfadden [facility] CPT-80193 Level 3 Est. Patient 14:35:11 X [employer]AY E[employer]RON[employer] WIRING TECHNICIAN Daniele Mcfadden [facility] CPT-91204 Level 3 Est. Patient 14:11:[address] [facility] CPT-23623 Level 3 Est. Patient 10:52:13 CDT Alexander LOPEZ [facility] CPT-35484 Level 3 Est. Patient 11:01:08 X [employer] WIRING TECHNICIAN Daniele Mcfadden [facility] CPT-80550 Level 3 Est. Patient 10:55:35 CDT Daniele Mcfadden [facility] CPT-25654 Level 3 Est. Patient 14:03:08 CDT Daniele Gaetano Mcfadden [facility] CPT-48379 Level 3 Est. Patient 11:26:19 CDT Margarito Kelley MD [facility] CPT-30673 Level 2 Est. Patient 15:32:04 X [employer] WIRING TECHNICIAN Daniele Mcfadden [facility] CPT-17686 Level 3 Est. Patient 16:01:26 X [employer] WIRING TECHNICIAN Daniele Mcfadden [facility] CPT-79731 Level 3 Est. Patient 06:37:10 X [employer] W[employer]ING TECHNICIAN Daniele Gaetano Mcfadden [facility] Procedures Code Procedure Name Date Entry Date Standard Description CPT-OV Office Visit 14:45:12 X [employer] W[employer]ING TECHNICIAN CPT-36652 [employer] all organs plus proximal aorta and distal IVC 2012 12:13:02 X [employer] WIRING TECHNICIAN CPT-55022 Abd compl w upright 15:12:58 X [employer] WIRING TECHNICIAN CPT-61645 Venipuncture Draw Fee 14:38:32 X [employer] WIRING TECHNICIAN CPT-95073 Administration single or combination vaccine inc oral 17 :10:04 CDT CPT-24110 Gardasil 17:10:04 CDT CPT-47290 Venipuncture Draw Fee 16:07:54 X [employer] WIRING TECHNICIAN CPT-43012 Administration 2+ single or combination vaccines inc oral 17:22:02 CDT CPT-53684 Administration single or combination vaccine inc oral 17 :22:02 CDT CPT-22580 Influenza split virus > age 3 17:22:02 CDT CPT-37962 Gardasil 17:22:02 CDT CPT-92176 Administration 2+ single or combination vaccines inc oral 14:38:31 CDT CPT-91578 Administration single or combination vaccine inc oral 14 :38:31 CDT CPT-71185 Meningococcal Conjugate Vacine (Menactra) 14:38:31 CDT CPT-38874 Gardasil 14:38:31 CDT
--- OUTSIDE RECORDS SUMMARY | 2018-02-15 07:35 | XMS REPORT | Clinical Summary ---
Author Author Admin, OLEG Organization [facility] Address Unknown Phone Unavailable Allergies, [...] 6 hours as needed for cough GUAIFENESIN-CODEINE 47390568086 Active Kendell Coronado MD Active ZITHROMAX Z-MARY 250 MG TABS 2 today and then 1 daily for 4 days AZITHROMYCIN 50420081723 Active Kendell Coronado MD Active FLONASE 50 MCG/ACT SUSP 1 spray each nostril am and hs FLUTICASONE PROPIONATE 00379245633 No Longer Active Kendell Coronado MD Active MELOXICAM 15 MG TABS 1 po q day for pain with food MELOXICAM 24657031469 No Longer Active Kendell Coronado MD Active HYDROCODONE-ACETAMINOPHEN 5-325 MG TABS 1-2 q 4-6 hrs prn pain 20 tabs 07/04 HYDROCODONE-ACETAMINOPHEN 84749826288 No Longer Active Daniele Mcfadden DO Active PREDNISONE 20 MG TAB 1 tablet twice daily for 2 days, then 1 tablet once daily for 2 days PREDNISONE 42615296020 No Longer Active Daniele Mcfadden DO Active PREDNISONE 20 MG TAB 1 po bid 2 days, then daily for 2 days 12/27 PREDNISONE 24353592325 No Longer Active Alexander LOPEZ Active AZITHROMYCIN 250 MG TABS 2 po qd x 1 day, then 1 po qd x 4 days AZITHROMYCIN 29629428032 No Longer Active Daniele Mcfadden DO Active MUCINEX MAXIMUM STRENGTH IT89V-LGI 1 po qd GUAIFENESIN XR12H- TAB 16602441276 No Longer Active Daniele Mcfadden DO Active AZITHROMYCIN 250 MG TABS 2 po qd x 1 day, then 1 po qd x 4 days AZITHROMYCIN 64628149854 No Longer Active Margarito Kelley MD Active PROAIR HFA 108 (90 BASE) MCG/ACT AERS 2 puffs every 4 hours as needed ALBUTEROL SULFATE 82881156084 Active Mckenna Mayo LPN Active E-Z SPACER ERIBERTO use with proair inhalier every 4 times as need. SPACER/ AERO-HOLDING CHAMBERS 64019045018 Active Mckenna Mayo LPN Active IRVING-D ALLERGY & CONGESTION HF20E-ZTC 1 po bid FEXOFENADINE -PSEUDOEPHEDRINE XK68U-HQE 78199868675 Active Daniele Mcfadden DO Active MUCINEX MAXIMUM STRENGTH AJ10I-ZHA 1 po qd MUCINEX MAXIMUM STRENGTH UW98A-VWM GUAIFENESIN ZN33I-IVP Inactive PREDNISONE 20 MG TAB 1 po bid 2 days, then daily for 2 days 12/27 PREDNISONE 20 MG TAB 374295 PREDNISONE Inactive PREDNISONE 20 MG TAB 1 tablet twice daily for 2 days, then 1 tablet once daily for 2 days PREDNISONE 20 MG TAB 238760 PREDNISONE Inactive HYDROCODONE-ACETAMINOPHEN 5-325 MG TABS 1-2 q 4-6 hrs prn pain 20 tabs 07/04 HYDROCODONE-ACETAMINOPHEN 5-325 MG TABS 633484 HYDROCODONE- ACETAMINOPHEN Inactive MELOXICAM 15 MG TABS 1 po q day for pain with food MELOXICAM 15 MG TABS 519023 MELOXICAM Inactive FLONASE 50 MCG/ACT SUSP 1 spray each nostril am and hs FLONASE 50 MCG/ACT SUSP 681903 FLUTICASONE PROPIONATE Inactive AZITHROMYCIN 250 MG TABS 2 po qd x 1 day, then 1 po qd x 4 days AZITHROMYCIN 250 MG TABS 2566205 AZITHROMYCIN Inactive AZITHROMYCIN 250 MG TABS 2 po qd x 1 day, then 1 po qd x 4 days AZITHROMYCIN 250 MG TABS 5163994 AZITHROMYCIN Inactive Immunizations Vaccine Administration Date Value Standard Description Human Papillomavirus vaccine (Gardasil) #2, (HPV #2) Gardasil [ CVX62] human papilloma virus vaccine, quadrivalent Seasonal influenza vaccine, injectable, containing preservative, for > 3 years old (Afluria, FluLaval, Fluzone, Fluvirin, Fluarix, Agriflu(>=18 yo)) Fluzone (>3 yrs.) [[id number]] Influenza, seasonal, injectable Human Papillomavirus Vaccine (Gardasil) #1 Given (HPV #1) Gardasil [CVX62] human papilloma virus vaccine, quadrivalent hepatitis A immunization #2 Havrix-Pedi hepatitis A vaccine, unspecified formulation Boostrix (Tetanus toxoid, reduced diphtheria toxoid and acellular pertussis vaccine, adsorbed), booster Boostrix [[id number]] tetanus toxoid, reduced diphtheria toxoid, and acellular [...] AUTO - Chemistry sodium, serum 142 mmol/L 878-687 0500/11/12 potassium, serum 4.1 mmol/L 3.5-5.2 chloride, serum [...] 5.0-8.5 Encounters Code Encounter Date Provider Facility CPT-62948 Level 3 Est. Patient 12:00:17 CDT Kendell Coronado MD [facility] CPT-07267 Level 3 Est. Patient 12:27:25 CDT Daniele Mcfadden DO [facility] CPT-49076 Level 3 Est. Patient 18:45:11 UTILIZATION MANAGEMENT RN Daniele Mcfadden [facility] CPT-74848 Level 3 Est. Patient 10:12:24 UTILIZATION MANAGEMENT RN Daniele Mcfadden [facility] CPT-93799 Level 3 Est. Patient 14:35:11 UTILIZATION MANAGEMENT RN Daniele Mcfadden [facility] CPT-24407 Level 3 Est. Patient 14:11:04 CDT Daniele Mcfadden [facility] CPT-61274 Level 3 Est. Patient 10:52:13 CDT Alexander LOPEZ [facility] CPT-70445 Level 3 Est. Patient 11:01:08 UTILIZATION MANAGEMENT RN Daniele Mcfadden [facility] CPT-54603 Level 3 Est. Patient 10:55:35 CDT Daniele Mcfadden [facility] CPT-44563 Level 3 Est. Patient 14:03:08 CDT Daniele Gaetano Mcfadden [facility] CPT-88638 Level 3 Est. Patient 11:26:19 CDT Margarito Kelley MD [facility] CPT-07518 Level 2 Est. Patient 15:32:04 UTILIZATION MANAGEMENT RN Daniele Mcfadden [facility] CPT-62379 Level 3 Est. Patient 16:01:26 UTILIZATION MANAGEMENT RN Daniele Mcfadden [facility] CPT-63828 Level 3 Est. Patient 06:37:10 UTILIZATION MANAGEMENT RN Daniele Gaetano Mcfadden [facility] Procedures Code Procedure Name Date Entry Date Standard Description CPT-OV Office Visit 14:45:12 UTILIZATION MANAGEMENT RN CPT-44890 [employer] all organs plus proximal aorta and distal IVC 2012 12:13:02 UTILIZATION MANAGEMENT RN CPT-30858 Abd compl w upright 15:12:58 UTILIZATION MANAGEMENT RN CPT-81340 Venipuncture Draw Fee 14:38:32 UTILIZATION MANAGEMENT RN CPT-62844 Administration single or combination vaccine inc oral 17 :10:04 CDT CPT-75722 Gardasil 17:10:04 CDT CPT-29798 Venipuncture Draw Fee 16:07:54 UTILIZATION MANAGEMENT RN CPT-14956 Administration 2+ single or combination vaccines inc oral 17:22:02 CDT CPT-46182 Administration single or combination vaccine inc oral 17 :22:02 CDT CPT-77117 Influenza split virus > age 3 17:22:02 CDT CPT-33971 Gardasil 17:22:02 CDT CPT-80768 Administration 2+ single or combination vaccines inc oral 14:38:31 CDT CPT-78220 Administration single or combination vaccine inc oral 14 :38:31 CDT CPT-70210 Meningococcal Conjugate Vacine (Menactra) 14:38:31 CDT CPT-57798 Gardasil 14:38:31 CDT
--- OUTSIDE RECORDS SUMMARY | 2018-02-15 07:35 | XMS REPORT | Clinical Summary ---
Author Author Admin, OLEG Organization [facility] Address Unknown Phone Unavailable Allergies, Adverse [...] times daily for ten days 06/25 CEPHALEXIN 48508838388 No Longer Active Renée Adames APRN Active MEDROL (MARY) 4 MG TABS 6 pills on day 1, 5 pills on day 2, 4 pills on day 3, 4 pills on day 4, 2 pills on day 5, 1 pill on day 6 METHYLPREDNISOLONE 69275524845 No Longer Active Annita Mejia MD PhD Active ZITHROMAX Z-MARY 250 MG TABS 2 today and then 1 daily for 4 days AZITHROMYCIN 63149946487 No Longer Active Annita Mejia MD PhD Active GUAIFENESIN-CODEINE 100-10 MG/5ML SYRP 5ml every 4 to 6 hours as needed for cough GUAIFENESIN-CODEINE 15426486903 No Longer Active Annita Mejia MD PhD Active FLONASE 50 MCG/ACT SUSP 1 spray each nostril am and hs FLUTICASONE PROPIONATE 32938821895 No Longer Active Kendell Coronado MD Active MELOXICAM 15 MG TABS 1 po q day for pain with food MELOXICAM 88634236598 No Longer Active Kendell Coronado MD Active HYDROCODONE-ACETAMINOPHEN 5-325 MG TABS 1-2 q 4-6 hrs prn pain 20 tabs 07/04 HYDROCODONE-ACETAMINOPHEN 15746815269 No Longer Active Daniele Mcfadden DO Active PREDNISONE 20 MG TAB 1 tablet twice daily for 2 days, then 1 tablet once daily for 2 days PREDNISONE 81322361971 No Longer Active Daniele Mcfadden DO Active PREDNISONE 20 MG TAB 1 po bid 2 days, then daily for 2 days 12/27 PREDNISONE 03204157555 No Longer Active Alexander LOPEZ Active AZITHROMYCIN 250 MG TABS 2 po qd x 1 day, then 1 po qd x 4 days AZITHROMYCIN 81267646593 No Longer Active Daniele Mcfadden DO Active MUCINEX MAXIMUM STRENGTH RI02H-TZD 1 po qd GUAIFENESIN XR12H- TAB 84192462805 No Longer Active Daniele Mcfadden DO Active AZITHROMYCIN 250 MG TABS 2 po qd x 1 day, then 1 po qd x 4 days AZITHROMYCIN 61281931014 No Longer Active Margarito Kelley MD Active PROAIR HFA 108 (90 BASE) MCG/ACT AERS 2 puffs every 4 hours as needed ALBUTEROL SULFATE 59241672506 Active Mckenna Mayo LPN Active E-Z SPACER ERIBERTO use with proair inhalier every 4 times as need. SPACER/ AERO-HOLDING CHAMBERS 59984499258 Active Mckenna Mayo LPN Active IRVING-D ALLERGY & CONGESTION FL12R-QWT 1 po bid FEXOFENADINE -PSEUDOEPHEDRINE JQ84J-SSW 89292703262 Active Daniele Mcfadden DO Active MUCINEX MAXIMUM STRENGTH TI94D-QPN 1 po qd MUCINEX MAXIMUM STRENGTH XV37U-GXA GUAIFENESIN BO78O-LXD Inactive PREDNISONE 20 MG TAB 1 po bid 2 days, then daily for 2 days 12/27 PREDNISONE 20 MG TAB 260775 PREDNISONE Inactive PREDNISONE 20 MG TAB 1 tablet twice daily for 2 days, then 1 tablet once daily for 2 days PREDNISONE 20 MG TAB 510025 PREDNISONE Inactive HYDROCODONE-ACETAMINOPHEN 5-325 MG TABS 1-2 q 4-6 hrs prn pain 20 tabs 07/04 HYDROCODONE-ACETAMINOPHEN 5-325 MG TABS 533778 HYDROCODONE- ACETAMINOPHEN Inactive MELOXICAM 15 MG TABS 1 po q day for pain with food MELOXICAM 15 MG TABS 145516 MELOXICAM Inactive FLONASE 50 MCG/ACT SUSP 1 spray each nostril am and hs FLONASE 50 MCG/ACT SUSP 418355 FLUTICASONE PROPIONATE Inactive GUAIFENESIN-CODEINE 100-10 MG/5ML SYRP 5ml every 4 to 6 hours as needed for cough GUAIFENESIN-CODEINE 100-10 MG/5ML SYRP 350083 GUAIFENESIN-CODEINE Inactive ZITHROMAX Z-MARY 250 MG TABS 2 today and then 1 daily for 4 days ZITHROMAX Z-MARY 250 MG TABS 1674509 AZITHROMYCIN Inactive AZITHROMYCIN 250 MG TABS 2 po qd x 1 day, then 1 po qd x 4 days AZITHROMYCIN 250 MG TABS 9772453 AZITHROMYCIN Inactive AZITHROMYCIN 250 MG TABS 2 po qd x 1 day, then 1 po qd x 4 days AZITHROMYCIN 250 MG TABS 0421969 AZITHROMYCIN Inactive MEDROL (MARY) 4 MG TABS 6 pills on day 1, 5 pills on day 2, 4 pills on day 3, 4 pills on day 4, 2 pills on day 5, 1 pill on day 6 MEDROL (MARY) 4 MG TABS METHYLPREDNISOLONE Inactive CEPHALEXIN 500 MG CAPS 1 tablet by mouth three times daily for ten days 06/25 CEPHALEXIN 500 MG CAPS 200499 CEPHALEXIN Inactive Immunizations Vaccine Administration Date Value Standard Description Human Papillomavirus vaccine (Gardasil) #2, (HPV #2) Gardasil [ CVX62] human papilloma virus vaccine, quadrivalent Seasonal influenza vaccine, injectable, containing preservative, for > 3 years old (Afluria, FluLaval, Fluzone, Fluvirin, Fluarix, Agriflu(>=18 yo)) Fluzone (>3 yrs.) [[id number]] Influenza, seasonal, injectable Human Papillomavirus Vaccine (Gardasil) #1 Given (HPV #1) Gardasil [CVX62] human papilloma virus vaccine, quadrivalent hepatitis A immunization #2 Havrix-Pedi hepatitis A vaccine, unspecified formulation Boostrix (Tetanus toxoid, reduced diphtheria toxoid and acellular pertussis vaccine, adsorbed), booster Boostrix [[id number]] tetanus toxoid, reduced diphtheria toxoid, and acellular [...] dipstick Negative Negative sodium, serum 136 mmol/L 458-983 8572/10/31 potassium, serum 4.4 mmol/L 3.5-5.2 chloride, serum [...] 5.0-8.5 Encounters Code Encounter Date Provider Facility CPT-54903 Level 3 Est. Patient 15:37:06 [employer]ATELLITE TV INSTALLER Daniele Mcfadden [facility] CPT-61645 Level 3 Est. Patient 11:56:34 [employer]ATELLITE TV INSTALLER Renée Robiberny JOHNSON [facility] CPT-31729 Level 3 Est. Patient 12:19:42 CDT Daniele Mcfadden [facility] [place] [facility] [place]-[address] Level 3 Est. Patient 11:08:45 CDT Annita Mejia MD [facility] CPT-64634 Level 3 Est. Patient 12:00:17 CDT Kendell Coronado MD [facility]-24891 Level 3 Est. Patient 12:27:25 CDT Daniele Mcfadden [facility] CPT-10338 Level 3 Est. Patient 18:45:11 [employer]ATELLITE TV INSTALLER Daniele Mcfadden [facility] CPT-39050 Level 3 Est. Patient 10:12:24 SATELLITE TV INSTALLER Daniele Mcfadden [facility] CPT-31986 Level 3 Est. Patient 14:35:11 SATELLITE TV INSTALLER Daniele Mcfadden [facility] CPT-21799 Level 3 Est. Patient 14:11:04 CDT Daniele Mcfadden [facility] CPT-53577 Level 3 Est. Patient 10:52:13 CDT Alexander LOPEZ [facility]-09305 Level 3 Est. Patient 11:01:08 [employer]LLITE TV INSTALLER Daniele Mcfadden [facility] CPT-57010 Level 3 Est. Patient 10:55:35 CDT Daniele Mcfadden [facility]-62969 Level 3 Est. Patient 14:03:08 CDT Daniele Mcfadden [facility] CPT-88974 Level 3 Est. Patient 11:26:19 CDT Margarito Kelley MD [facility] CPT-38408 Level 2 Est. Patient 15:32:04 SATELLITE TV INSTALLER Daniele Mcfadden [facility] CPT-27197 Level 3 Est. Patient 16:01:26 SATELLITE TV INSTALLER Daniele Salter Bogdan [facility] CPT-79317 Level 3 Est. Patient 06:37:10 SATELLITE TV INSTALLER Daniele Gaetano Bogdan [facility] Procedures Code Procedure Name Date Entry Date Standard Description CPT-67768 Abd compl w upright 12:34:39 CDT CPT-24686 Immunization Single Admin 11:38:41 CDT CPT-02097 Fluzone Quadrivalent Intramuscular Suspension 0.5 ML 11: 38:41 CDT CPT-OV Office Visit 14:45:12 [employer]LLITE TV INSTALLER CPT-78325 [employer] all organs plus proximal aorta and distal IVC 2012 12:13:02 [employer]LLITE TV INSTALLER CPT-99850 Abd compl w upright 15:12:58 [employer]LLITE TV INSTALLER CPT-41468 Venipuncture Draw Fee 14:38:32 [employer]LLITE TV INST[employer]ER CPT-38913 Administration single or combination vaccine inc oral 17 :10:04 CDT CPT-87941 Gardasil 17:10:04 CDT CPT-28335 Venipuncture Draw Fee 16:07:54 [employer]LLITE TV INST[employer]ER CPT-00066 Administration 2+ single or combination vaccines inc oral 17:22:02 CDT CPT-98529 Administration single or combination vaccine inc oral 17 :22:02 CDT CPT-35165 Influenza split virus > age 3 17:22:02 CDT CPT-66176 Gardasil 17:22:02 CDT CPT-96139 Administration 2+ single or combination vaccines inc oral 14:38:31 CDT CPT-77788 Administration single or combination vaccine inc oral 14 :38:31 CDT CPT-33915 Meningococcal Conjugate Vacine (Menactra) 14:38:31 CDT CPT-76925 Gardasil 14:38:31 CDT
--- OUTSIDE RECORDS SUMMARY | 2018-02-15 07:36 | XMS REPORT | Clinical Summary ---
Author Author Admin, OLEG Organization [facility] Address Unknown Phone Unavailable Allergies, [...] times daily for ten days 06/25 CEPHALEXIN [id number] No Longer Active Renée Adames APRN Active MEDROL (MARY) 4 MG TABS 6 pills on day 1, 5 pills on day 2, 4 pills on day 3, 4 pills on day 4, 2 pills on day 5, 1 pill on day 6 METHYLPREDNISOLONE 65534126415 No Longer Active Annita Mejia MD PhD Active ZITHROMAX Z-MARY 250 MG TABS 2 today and then 1 daily for 4 days AZITHROMYCIN 41727301622 No Longer Active Annita Mejia MD PhD Active GUAIFENESIN-CODEINE 100-10 MG/5ML SYRP 5ml every 4 to 6 hours as needed for cough GUAIFENESIN-CODEINE 24977040368 No Longer Active Annita Mejia MD PhD Active FLONASE 50 MCG/ACT SUSP 1 spray each nostril am and hs FLUTICASONE PROPIONATE 78973356241 No Longer Active Kendell Coronado MD Active MELOXICAM 15 MG TABS 1 po q day for pain with food MELOXICAM 98429535702 No Longer Active Kendell Coronado MD Active HYDROCODONE-ACETAMINOPHEN 5-325 MG TABS 1-2 q 4-6 hrs prn pain 20 tabs 07/04 HYDROCODONE-ACETAMINOPHEN 13421476276 No Longer Active aDniele Mcfadden DO Active PREDNISONE 20 MG TAB 1 tablet twice daily for 2 days, then 1 tablet once daily for 2 days PREDNISONE 37809585003 No Longer Active Daniele Mcfadden DO Active PREDNISONE 20 MG TAB 1 po bid 2 days, then daily for 2 days 12/27 PREDNISONE 69919425847 No Longer Active Alexander LOPEZ Active AZITHROMYCIN 250 MG TABS 2 po qd x 1 day, then 1 po qd x 4 days AZITHROMYCIN 18458370466 No Longer Active Daniele Mcfadden DO Active MUCINEX MAXIMUM STRENGTH [id number] 1 po qd GUAIFENESIN XR12H- TAB 72427945864 No Longer Active Daniele Mcfadden DO Active AZITHROMYCIN 250 MG TABS 2 po qd x 1 day, then 1 po qd x 4 days AZITHROMYCIN 31089090789 No Longer Active Margarito Kelley MD Active PROAIR HFA 108 (90 BASE) MCG/ACT AERS 2 puffs every 4 hours as needed ALBUTEROL SULFATE 99004373588 Active Mckenna Mayo LPN Active E-Z SPACER ERIBERTO use with proair inhalier every 4 times as need. SPACER/ AERO-HOLDING CHAMBERS 28675044267 Active Mckenna Mayo LPN Active IRVING-D ALLERGY & CONGESTION [id number] 1 po bid FEXOFENADINE -PSEUDOEPHEDRINE [id number]-WBL 45297455789 Active Daniele Mcfadden DO Active MUCINEX MAXIMUM STRENGTH RD88N-ULU 1 po qd MUCINEX MAXIMUM STRENGTH HE89S-PMG GUAIFENESIN BG30N-IIJ Inactive PREDNISONE 20 MG TAB 1 po bid 2 days, then daily for 2 days 12/27 PREDNISONE 20 MG TAB 223461 PREDNISONE Inactive PREDNISONE 20 MG TAB 1 tablet twice daily for 2 days, then 1 tablet once daily for 2 days PREDNISONE 20 MG TAB 748643 PREDNISONE Inactive HYDROCODONE-ACETAMINOPHEN 5-325 MG TABS 1-2 q 4-6 hrs prn pain 20 tabs 07/04 HYDROCODONE-ACETAMINOPHEN 5-325 MG TABS 764336 HYDROCODONE- ACETAMINOPHEN Inactive MELOXICAM 15 MG TABS 1 po q day for pain with food MELOXICAM 15 MG TABS 098273 MELOXICAM Inactive FLONASE 50 MCG/ACT SUSP 1 spray each nostril am and hs FLONASE 50 MCG/ACT SUSP 683672 FLUTICASONE PROPIONATE Inactive GUAIFENESIN-CODEINE 100-10 MG/5ML SYRP 5ml every 4 to 6 hours as needed for cough GUAIFENESIN-CODEINE 100-10 MG/5ML SYRP 646447 GUAIFENESIN-CODEINE Inactive ZITHROMAX Z-MARY 250 MG TABS 2 today and then 1 daily for 4 days ZITHROMAX Z-MARY 250 MG TABS 5820527 AZITHROMYCIN Inactive AZITHROMYCIN 250 MG TABS 2 po qd x 1 day, then 1 po qd x 4 days AZITHROMYCIN 250 MG TABS 7307939 AZITHROMYCIN Inactive AZITHROMYCIN 250 MG TABS 2 po qd x 1 day, then 1 po qd x 4 days AZITHROMYCIN 250 MG TABS 6028365 AZITHROMYCIN Inactive MEDROL (MARY) 4 MG TABS 6 pills on day 1, 5 pills on day 2, 4 pills on day 3, 4 pills on day 4, 2 pills on day 5, 1 pill on day 6 MEDROL (MARY) 4 MG TABS METHYLPREDNISOLONE Inactive CEPHALEXIN 500 MG CAPS 1 tablet by mouth three times daily for ten days 06/25 CEPHALEXIN 500 MG CAPS 064985 CEPHALEXIN Inactive Immunizations Vaccine Administration Date Value Standard Description Human Papillomavirus vaccine (Gardasil) #2, (HPV #2) Gardasil [ CVX62] human papilloma virus vaccine, quadrivalent Seasonal influenza vaccine, injectable, containing preservative, for > 3 years old (Afluria, FluLaval, Fluzone, Fluvirin, Fluarix, Agriflu(>=18 yo)) Fluzone (>3 yrs.) [[id number]] Influenza, seasonal, injectable Human Papillomavirus Vaccine (Gardasil) #1 Given (HPV #1) Gardasil [CVX62] human papilloma virus vaccine, quadrivalent hepatitis A immunization #2 Havrix-Pedi hepatitis A vaccine, unspecified formulation Boostrix (Tetanus toxoid, reduced diphtheria toxoid and acellular pertussis vaccine, adsorbed), booster Boostrix [GUX286] tetanus toxoid, reduced diphtheria toxoid, and acellular [...] dipstick Negative Negative sodium, serum 136 mmol/L 321-843 2800/10/31 potassium, serum 4.4 mmol/L 3.5-5.2 chloride, serum [...] 5.0-8.5 Encounters Code Encounter Date Provider Facility CPT-61227 Level 3 Est. Patient 15:37:06 MANAGER CRISIS Dainele Mcfadden [facility] CPT-77259 Level 3 Est. Patient 11:56:34 MANAGER CRISIS Renée Robiberny JOHNSON [facility] CPT-51866 Level 3 Est. Patient 12:19:42 CDT Daniele Mcfadden [facility] [place]-[address] Level 3 Est. Patient 11:08:45 CDT Annita Mejia MD [facility] CPT-21391 Level 3 Est. Patient 12:00:17 CDT Kendell Coronado MD [facility]-55487 Level 3 Est. Patient 12:27:25 CDT Daniele Mcfadden [facility] CPT-31277 Level 3 Est. Patient 18:45:11 MANAGER CRISIS Daniele Mcfadden [facility] CPT-84418 Level 3 Est. Patient 10:12:24 MANAGER CRISIS Daniele Mcfadden [facility] CPT-22534 Level 3 Est. Patient 14:35:11 MANAGER CRISIS Daniele Mcfadden [facility] CPT-87510 Level 3 Est. Patient 14:11:04 CDT Daniele Mcfadden [facility] CPT-18042 Level 3 Est. Patient 10:52:13 CDT Alexander LOPEZ [facility]-20541 Level 3 Est. Patient 11:01:08 MANAGER CRISIS Daniele Mcfadden [facility] CPT-40389 Level 3 Est. Patient 10:55:35 CDT Daniele Mcfadden [facility]-42698 Level 3 Est. Patient 14:03:08 CDT Daniele Mcfadden [facility] CPT-51080 Level 3 Est. Patient 11:26:19 CDT Margarito Kelley MD [facility] CPT-63402 Level 2 Est. Patient 15:32:04 MANAGER CRISIS Daniele Mcfadden [facility] CPT-65965 Level 3 Est. Patient 16:01:26 MANAGER CRISIS Daniele Salter Bogdan [facility] CPT-45413 Level 3 Est. Patient 06:37:10 MANAGER CRISIS Daniele Gaetano Bogdan [facility] Procedures Code Procedure Name Date Entry Date Standard Description CPT-46939 Abd compl w upright 12:34:39 CDT CPT-34831 Immunization Single Admin 11:38:41 CDT CPT-54460 Fluzone Quadrivalent Intramuscular Suspension 0.5 ML 11: 38:41 CDT CPT-OV Office Visit 14:45:12 MANAGER CRISIS CPT-85760 [employer] inc all organs plus proximal aorta and distal IVC 2012 12:13:02 MANAGER CRISIS CPT-64360 Abd compl w upright 15:12:58 MANAGER CRISIS CPT-86935 Venipuncture Draw Fee 14:38:32 MANAGER CRISIS CPT-46190 Administration single or combination vaccine inc oral 17 :10:04 CDT CPT-79234 Gardasil 17:10:04 CDT CPT-06239 Venipuncture Draw Fee 16:07:54 MANAGER CRISIS CPT-52286 Administration 2+ single or combination vaccines inc oral 17:22:02 CDT CPT-93837 Administration single or combination vaccine inc oral 17 :22:02 CDT CPT-80031 Influenza split virus > age 3 17:22:02 CDT CPT-36287 Gardasil 17:22:02 CDT CPT-84557 Administration 2+ single or combination vaccines inc oral 14:38:31 CDT CPT-51154 Administration single or combination vaccine inc oral 14 :38:31 CDT CPT-20329 Meningococcal Conjugate Vacine (Menactra) 14:38:31 CDT CPT-65179 Gardasil 14:38:31 CDT
--- OUTSIDE RECORDS SUMMARY | 2018-02-15 07:36 | XMS REPORT | Clinical Summary ---
Author Author Admin, OLEG Organization [facility] Address Unknown Phone Unavailable Allergies, Adverse [...] q day for pain with food MELOXICAM 87979759843 Active Daniele Mcfadden DO Active HYDROCODONE-ACETAMINOPHEN 5-325 MG TABS 1-2 q 4-6 hrs prn pain 20 tabs 07/04 HYDROCODONE-ACETAMINOPHEN 49760422551 No Longer Active Daniele Mcfadden DO Active PREDNISONE 20 MG TAB 1 tablet twice daily for 2 days, then 1 tablet once daily for 2 days PREDNISONE 96537327696 No Longer Active Daniele Mcfadden DO Active PREDNISONE 20 MG TAB 1 po bid 2 days, then daily for 2 days 12/27 PREDNISONE 05318567144 No Longer Active Alexander LOPEZ Active AZITHROMYCIN 250 MG TABS 2 po qd x 1 day, then 1 po qd x 4 days AZITHROMYCIN 09388364276 No Longer Active Daniele Mcfadden DO Active MUCINEX MAXIMUM STRENGTH FQ07C-CYV 1 po qd GUAIFENESIN XR12H- TAB 55884543723 No Longer Active Daniele Mcfadden DO Active AZITHROMYCIN 250 MG TABS 2 po qd x 1 day, then 1 po qd x 4 days AZITHROMYCIN 76193057941 No Longer Active Margarito Kelley MD Active FLONASE 50 MCG/ACT SUSP 1 spray each nostril am and hs FLUTICASONE PROPIONATE 70216811873 Active Daniele Mcfadden DO Active PROAIR HFA 108 (90 BASE) MCG/ACT AERS 2 puffs every 4 hours as needed ALBUTEROL SULFATE 37736644001 Active Mckenna Cabreraum PSYCHIATRIC SOCIAL WORKER Active E-Z SPACER ERIBERTO use with proair inhalier every 4 times as need. SPACER/ AERO-HOLDING CHAMBERS 95422476699 Active Mckenna Cabreraum PSYCHIATRIC SOCIAL WORKER Active IRVING-D ALLERGY & CONGESTION [id number]-VIF 1 po bid FEXOFENADINE -PSEUDOEPHEDRINE [id number] 81710117137 Active Daniele Mcfadden DO Active MUCINEX MAXIMUM STRENGTH VL34Y-IYT 1 po qd MUCINEX MAXIMUM STRENGTH VO36I-OEA GUAIFENESIN JO65M-LGG Inactive PREDNISONE 20 MG TAB 1 po bid 2 days, then daily for 2 days 12/27 PREDNISONE 20 MG TAB 515380 PREDNISONE Inactive PREDNISONE 20 MG TAB 1 tablet twice daily for 2 days, then 1 tablet once daily for 2 days PREDNISONE 20 MG TAB 729668 PREDNISONE Inactive HYDROCODONE-ACETAMINOPHEN 5-325 MG TABS 1-2 q 4-6 hrs prn pain 20 tabs 07/04 HYDROCODONE-ACETAMINOPHEN 5-325 MG TABS 437783 HYDROCODONE- ACETAMINOPHEN Inactive AZITHROMYCIN 250 MG TABS 2 po qd x 1 day, then 1 po qd x 4 days AZITHROMYCIN 250 MG TABS 5053441 AZITHROMYCIN Inactive AZITHROMYCIN 250 MG TABS 2 po qd x 1 day, then 1 po qd x 4 days AZITHROMYCIN 250 MG TABS 4706779 AZITHROMYCIN Inactive Immunizations Vaccine Administration Date Value Standard Description Human Papillomavirus vaccine (Gardasil) #2, (HPV #2) Gardasil [ CVX62] human papilloma virus vaccine, quadrivalent Seasonal influenza vaccine, injectable, containing preservative, for > 3 years old (Afluria, FluLaval, Fluzone, Fluvirin, Fluarix, Agriflu(>=18 yo)) Fluzone (>3 yrs.) [QDF251] Influenza, seasonal, injectable Human Papillomavirus Vaccine (Gardasil) #1 Given (HPV #1) Gardasil [CVX62] human papilloma virus vaccine, quadrivalent hepatitis A immunization #2 Havrix-Pedi hepatitis A vaccine, unspecified formulation Boostrix (Tetanus toxoid, reduced diphtheria toxoid and acellular pertussis vaccine, adsorbed), booster Boostrix [[id number]] tetanus toxoid, reduced diphtheria toxoid, and acellular [...] AUTO - Chemistry sodium, serum 142 mmol/L 534-440 6293/11/12 potassium, serum 4.1 mmol/L 3.5-5.2 chloride, serum [...] 5.0-8.5 Encounters Code Encounter Date Provider Facility CPT-25409 Level 3 Est. Patient 12:27:25 CDT Daniele Mcfadden [facility] CPT-71120 Level 3 Est. Patient 18:45:11 RANGE MANAGER Daniele Mcfadden [facility] CPT-31579 Level 3 Est. Patient 10:12:24 RANGE MANAGER Daniele Mcfadden [facility] CPT-55603 Level 3 Est. Patient 14:35:11 RANGE MANAGER Daniele Mcfadden [facility] CPT-42851 Level 3 Est. Patient 14:11:04 CDT Daniele Mcfadden [facility] CPT-77607 Level 3 Est. Patient 10:52:13 CDT Alexander Estrada [facility] CPT-45452 Level 3 Est. Patient 11:01:08 RANGE MANAGER Daniele Mcfadden [facility] CPT-11892 Level 3 Est. Patient 10:55:35 CDT Daniele Mcfadden [facility] CPT-79202 Level 3 Est. Patient 14:03:08 CDT Daniele Mcfadden [facility] CPT-75382 Level 3 Est. Patient 11:26:19 CDT Margarito Kelley MD [facility] CPT-68459 Level 2 Est. Patient 15:32:04 RANGE MANAGER Daniele Mcfadden [facility] CPT-37686 Level 3 Est. Patient 16:01:26 RANGE MANAGER Daniele Gaetano Bogdan [facility] CPT-18140 Level 3 Est. Patient 06:37:10 RANGE MANAGER Daniele Gaetano Mcfadden [facility] Procedures Code Procedure Name Date Entry Date Standard Description CPT-OV Office Visit 14:45:12 RANGE MANAGER CPT-25038 [employer] inc all organs plus proximal aorta and distal IVC 2012 12:13:02 RANGE MANAGER CPT-32518 Abd compl w upright 15:12:58 RANGE MANAGER CPT-69405 Venipuncture Draw Fee 14:38:32 RANGE MANAGER CPT-40361 Administration single or combination vaccine inc oral 17 :10:04 CDT CPT-65002 Gardasil 17:10:04 CDT CPT-05506 Venipuncture Draw Fee 16:07:54 RANGE MANAGER CPT-58286 Administration 2+ single or combination vaccines inc oral 17:22:02 CDT CPT-80696 Administration single or combination vaccine inc oral 17 :22:02 CDT CPT-09730 Influenza split virus > age 3 17:22:02 CDT CPT-63149 Gardasil 17:22:02 CDT CPT-87664 Administration 2+ single or combination vaccines inc oral 14:38:31 CDT CPT-37017 Administration single or combination vaccine inc oral 14 :38:31 CDT CPT-96611 Meningococcal Conjugate Vacine (Menactra) 14:38:31 CDT CPT-94540 Gardasil 14:38:31 CDT
--- OUTSIDE RECORDS SUMMARY | 2018-02-15 07:37 | XMS REPORT | Clinical Summary ---
Author Author Admin, OLEG Organization [facility] Address Unknown Phone Unavailable [...] 5, 1 pill on day 6 METHYLPREDNISOLONE 48867665689 No Longer Active Annita Mejia MD PhD Active ZITHROMAX Z-MARY 250 MG TABS 2 today and then 1 daily for 4 days AZITHROMYCIN 62744906784 No Longer Active Annita Mejia MD PhD Active GUAIFENESIN-CODEINE 100-10 MG/5ML SYRP 5ml every 4 to 6 hours as needed for cough GUAIFENESIN-CODEINE 86405539089 No Longer Active Annita Mejia MD PhD Active FLONASE 50 MCG/ACT SUSP 1 spray each nostril am and hs FLUTICASONE PROPIONATE 00086091320 No Longer Active Kendell Coronado MD Active MELOXICAM 15 MG TABS 1 po q day for pain with food MELOXICAM 39184918436 No Longer Active Kendell Coronado MD Active HYDROCODONE-ACETAMINOPHEN 5-325 MG TABS 1-2 q 4-6 hrs prn pain 20 tabs 07/04 HYDROCODONE-ACETAMINOPHEN 56310976354 No Longer Active Daniele Mcfadden DO Active PREDNISONE 20 MG TAB 1 tablet twice daily for 2 days, then 1 tablet once daily for 2 days PREDNISONE 39178645362 No Longer Active Daniele Mcfadden DO Active PREDNISONE 20 MG TAB 1 po bid 2 days, then daily for 2 days 12/27 PREDNISONE 56482702171 No Longer Active Alexander LOPEZ Active AZITHROMYCIN 250 MG TABS 2 po qd x 1 day, then 1 po qd x 4 days AZITHROMYCIN 71330600144 No Longer Active Daniele Mcfadden DO Active MUCINEX MAXIMUM STRENGTH LN53X-WOR 1 po qd GUAIFENESIN XR12H- TAB 58328412759 No Longer Active Daniele Mcfadden DO Active AZITHROMYCIN 250 MG TABS 2 po qd x 1 day, then 1 po qd x 4 days AZITHROMYCIN 37754269611 No Longer Active Margarito Kelley MD Active PROAIR HFA 108 (90 BASE) MCG/ACT AERS 2 puffs every 4 hours as needed ALBUTEROL SULFATE 93433897279 Active Mckenna Cabreraum WASTE HAND Active E-Z SPACER ERIBERTO use with proair inhalier every 4 times as need. SPACER/ AERO-HOLDING CHAMBERS 54371107989 Active Mckenna Cabreraum WASTE HAND Active IRVING-D ALLERGY & CONGESTION DM08W-GLJ 1 po bid FEXOFENADINE -PSEUDOEPHEDRINE HV36G-FVI 79692948612 Active Daniele Mcfadden DO Active MUCINEX MAXIMUM STRENGTH QN80X-SFL 1 po qd MUCINEX MAXIMUM STRENGTH ML57U-WXI GUAIFENESIN PD97L-CAQ Inactive PREDNISONE 20 MG TAB 1 po bid 2 days, then daily for 2 days 12/27 PREDNISONE 20 MG TAB 508193 PREDNISONE Inactive PREDNISONE 20 MG TAB 1 tablet twice daily for 2 days, then 1 tablet once daily for 2 days PREDNISONE 20 MG TAB 884438 PREDNISONE Inactive HYDROCODONE-ACETAMINOPHEN 5-325 MG TABS 1-2 q 4-6 hrs prn pain 20 tabs 07/04 HYDROCODONE-ACETAMINOPHEN 5-325 MG TABS 946141 HYDROCODONE- ACETAMINOPHEN Inactive MELOXICAM 15 MG TABS 1 po q day for pain with food MELOXICAM 15 MG TABS 738675 MELOXICAM Inactive FLONASE 50 MCG/ACT SUSP 1 spray each nostril am and hs FLONASE 50 MCG/ACT SUSP 546392 FLUTICASONE PROPIONATE Inactive GUAIFENESIN-CODEINE 100-10 MG/5ML SYRP 5ml every 4 to 6 hours as needed for cough GUAIFENESIN-CODEINE 100-10 MG/5ML SYRP 625972 GUAIFENESIN-CODEINE Inactive ZITHROMAX Z-MARY 250 MG TABS 2 today and then 1 daily for 4 days ZITHROMAX Z-MARY 250 MG TABS 8333293 AZITHROMYCIN Inactive AZITHROMYCIN 250 MG TABS 2 po qd x 1 day, then 1 po qd x 4 days AZITHROMYCIN 250 MG TABS 6865051 AZITHROMYCIN Inactive AZITHROMYCIN 250 MG TABS 2 po qd x 1 day, then 1 po qd x 4 days AZITHROMYCIN 250 MG TABS 0510469 AZITHROMYCIN Inactive MEDROL (MARY) 4 MG TABS [...] Fluvirin, Fluarix, Agriflu(>=18 yo)) Fluzone (>3 yrs.) [[id number]] Influenza, seasonal, injectable Human Papillomavirus Vaccine (Gardasil) #1 Given (HPV #1) Gardasil [CVX62] human papilloma virus vaccine, quadrivalent hepatitis A immunization #2 Havrix-Pedi hepatitis A vaccine, unspecified formulation Combined Zqzmrlzzup-Uznnjkj-rvphujrqg Pertussis (dTpa) Vaccine - Booster 12/02 Boostrix [[id number]] tetanus toxoid, reduced diphtheria toxoid, and acellular [...] dipstick Negative Negative sodium, serum 136 mmol/L 979-150 4624/10/31 potassium, serum 4.4 mmol/L 3.5-5.2 chloride, serum [...] AUTO - Chemistry sodium, serum 142 mmol/L 767-954 8934/11/12 potassium, serum 4.1 mmol/L 3.5-5.2 chloride, serum [...] 5.0-8.5 Encounters Code Encounter Date Provider Facility CPT-27651 Level 3 Est. Patient 12:19:42 CDT Daniele Mcfadden DO [facility] CPT-90689 Level 3 Est. Patient 11:08:45 CDT Annita Mejia MD PhD [facility] CPT-40656 Level 3 Est. Patient 12:00:17 CDT Kendell Coronado MD [facility] CPT-64088 Level 3 Est. Patient 12:27:25 CDT Daniele Mcfadden [facility] CPT-79625 Level 3 Est. Patient 18:45:11 METAL CAN INSPECTOR Daniele Mcfadden [facility] CPT-93157 Level 3 Est. Patient 10:12:24 METAL CAN INSPECTOR Daniele Mcfadden [facility] CPT-18262 Level 3 Est. Patient 14:35:11 METAL CAN INSPECTOR Daniele Mcfadden [facility] CPT-55927 Level 3 Est. Patient 14:11:04 CDT Daniele Mcfadden [facility] CPT-04403 Level 3 Est. Patient 10:52:13 CDT Alexander LOPEZ [facility] CPT-57647 Level 3 Est. Patient 11:01:08 METAL CAN INSPECTOR Daniele Mcfadden [facility] CPT-18554 Level 3 Est. Patient 10:55:35 CDT Daniele Mcfadden [facility] CPT-58224 Level 3 Est. Patient 14:03:08 CDT Daniele Mcfadden [facility] CPT-24089 Level 3 Est. Patient 11:26:19 CDT Margarito Kelley MD [facility] CPT-46720 Level 2 Est. Patient 15:32:04 METAL CAN INSPECTOR Daniele Mcfadden [facility] CPT-92429 Level 3 Est. Patient 16:01:26 METAL CAN INSPECTOR Daniele Mcfadden [facility] CPT-61648 Level 3 Est. Patient 06:37:10 METAL CAN INSPECTOR Daniele Mcfadden [facility] Procedures Code Procedure Name Date Entry Date Standard Description CPT-23779 Abd compl w upright 12:34:39 CDT CPT-58456 Immunization Single Admin 11:38:41 CDT CPT-95627 Fluzone Quadrivalent Intramuscular Suspension 0.5 ML 11: 38:41 CDT CPT-OV Office Visit 14:45:12 METAL CAN INSPECTOR CPT-74456 [employer] inc all organs plus proximal aorta and distal IVC 2012 12:13:02 METAL CAN INSPECTOR CPT-89420 Abd compl w upright 15:12:58 METAL CAN INSPECTOR CPT-74580 Venipuncture Draw Fee 14:38:32 METAL CAN INSPECTOR CPT-97377 Administration single or combination vaccine inc oral 17 :10:04 CDT CPT-17068 Gardasil 17:10:04 CDT CPT-83421 Venipuncture Draw Fee 16:07:54 METAL CAN INSPECTOR CPT-26520 Administration 2+ single or combination vaccines inc oral 17:22:02 CDT CPT-46837 Administration single or combination vaccine inc oral 17 :22:02 CDT CPT-56854 Influenza split virus > age 3 17:22:02 CDT CPT-08937 Gardasil 17:22:02 CDT CPT-42734 Administration 2+ single or combination vaccines inc oral 14:38:31 CDT CPT-98051 Administration single or combination vaccine inc oral 14 :38:31 CDT CPT-37265 Meningococcal Conjugate Vacine (Menactra) 14:38:31 CDT CPT-49283 Gardasil 14:38:31 CDT
--- OUTSIDE RECORDS SUMMARY | 2018-02-15 07:38 | XMS REPORT | Clinical Summary ---
Author Author Admin, OLEG Organization [facility] Address Unknown Phone Unavailable Allergies, Adverse Reactions, [...] pain, unspecified site Biliary dyskinesia 575.8 Active Errlo Pack MD Other specified disorders of gallbladder [...] 5, 1 pill on day 6 METHYLPREDNISOLONE 26200741474 No Longer Active Annita Mejia MD PhD Active ZITHROMAX Z-MARY 250 MG TABS 2 today and then 1 daily for 4 days AZITHROMYCIN 96430118953 No Longer Active Annita Mejia MD PhD Active GUAIFENESIN-CODEINE 100-10 MG/5ML SYRP 5ml every 4 to 6 hours as needed for cough GUAIFENESIN-CODEINE 84902802433 No Longer Active Annita Mejia MD PhD Active FLONASE 50 MCG/ACT SUSP 1 spray each nostril am and hs FLUTICASONE PROPIONATE 41606784275 No Longer Active Kendell Coronado MD Active MELOXICAM 15 MG TABS 1 po q day for pain with food MELOXICAM 91509799119 No Longer Active Kendell Coronado MD Active HYDROCODONE-ACETAMINOPHEN 5-325 MG TABS 1-2 q 4-6 hrs prn pain 20 tabs 07/04 HYDROCODONE-ACETAMINOPHEN 97037110210 No Longer Active Daniele Mcfadden DO Active PREDNISONE 20 MG TAB 1 tablet twice daily for 2 days, then 1 tablet once daily for 2 days PREDNISONE 50477811209 No Longer Active Daniele Mcfadden DO Active PREDNISONE 20 MG TAB 1 po bid 2 days, then daily for 2 days 12/27 PREDNISONE 08671879615 No Longer Active Alexander LOPEZ Active AZITHROMYCIN 250 MG TABS 2 po qd x 1 day, then 1 po qd x 4 days AZITHROMYCIN 44307967794 No Longer Active Daniele Mcfadden DO Active MUCINEX MAXIMUM STRENGTH BI70U-DAA 1 po qd GUAIFENESIN XR12H- TAB 92818393591 No Longer Active Daniele Mcfadden DO Active AZITHROMYCIN 250 MG TABS 2 po qd x 1 day, then 1 po qd x 4 days AZITHROMYCIN 49751693092 No Longer Active Margarito Kelley MD Active PROAIR HFA 108 (90 BASE) MCG/ACT AERS 2 puffs every 4 hours as needed ALBUTEROL SULFATE 90797627329 Active Mckenna Cabreraum ASSEMBLER 1ST SHIFT Active E-Z SPACER ERIBERTO use with proair inhalier every 4 times as need. SPACER/ AERO-HOLDING CHAMBERS 91997763052 Active Mckenna Mayo ASSEMBLER 1ST SHIFT Active IRVING-D ALLERGY & CONGESTION TK06K-GGZ 1 po bid FEXOFENADINE -PSEUDOEPHEDRINE UE82T-TWV 40146554319 Active Daniele Mcfadden DO Active MUCINEX MAXIMUM STRENGTH AZ39F-JZW 1 po qd MUCINEX MAXIMUM STRENGTH PL24N-PXR GUAIFENESIN ST44T-NCI Inactive PREDNISONE 20 MG TAB 1 po bid 2 days, then daily for 2 days 12/27 PREDNISONE 20 MG TAB 457715 PREDNISONE Inactive PREDNISONE 20 MG TAB 1 tablet twice daily for 2 days, then 1 tablet once daily for 2 days PREDNISONE 20 MG TAB 074388 PREDNISONE Inactive HYDROCODONE-ACETAMINOPHEN 5-325 MG TABS 1-2 q 4-6 hrs prn pain 20 tabs 07/04 HYDROCODONE-ACETAMINOPHEN 5-325 MG TABS 565099 HYDROCODONE- ACETAMINOPHEN Inactive MELOXICAM 15 MG TABS 1 po q day for pain with food MELOXICAM 15 MG TABS 614097 MELOXICAM Inactive FLONASE 50 MCG/ACT SUSP 1 spray each nostril am and hs FLONASE 50 MCG/ACT SUSP 638214 FLUTICASONE PROPIONATE Inactive GUAIFENESIN-CODEINE 100-10 MG/5ML SYRP 5ml every 4 to 6 hours as needed for cough GUAIFENESIN-CODEINE 100-10 MG/5ML SYRP 082910 GUAIFENESIN-CODEINE Inactive ZITHROMAX Z-MARY 250 MG TABS 2 today and then 1 daily for 4 days ZITHROMAX Z-MARY 250 MG TABS 0783627 AZITHROMYCIN Inactive AZITHROMYCIN 250 MG TABS 2 po qd x 1 day, then 1 po qd x 4 days AZITHROMYCIN 250 MG TABS 8438677 AZITHROMYCIN Inactive AZITHROMYCIN 250 MG TABS 2 po qd x 1 day, then 1 po qd x 4 days AZITHROMYCIN 250 MG TABS 2508501 AZITHROMYCIN Inactive MEDROL (MARY) 4 MG TABS [...] Fluvirin, Fluarix, Agriflu(>=18 yo)) Fluzone (>3 yrs.) [[id number]] Influenza, seasonal, injectable Human Papillomavirus Vaccine (Gardasil) #1 Given (HPV #1) Gardasil [CVX62] human papilloma virus vaccine, quadrivalent hepatitis A immunization #2 Havrix-Pedi hepatitis A vaccine, unspecified formulation Boostrix (Tetanus toxoid, reduced diphtheria toxoid and acellular pertussis vaccine, adsorbed), booster Boostrix [[id number]] tetanus toxoid, reduced diphtheria toxoid, and acellular [...] AUTO - Chemistry sodium, serum 142 mmol/L 279-748 4302/11/12 potassium, serum 4.1 mmol/L 3.5-5.2 chloride, serum [...] 5.0-8.5 Encounters Code Encounter Date Provider Facility CPT-94249 Level 3 Est. Patient 11:08:45 CDT Annita Mejia MD PhD [facility] CPT-19494 Level 3 Est. Patient 12:00:17 CDT Kendell Coronado MD [facility] CPT-32565 Level 3 Est. Patient 12:27:25 CDT Daniele Mcfadden [facility] CPT-82414 Level 3 Est. Patient 18:45:11 ROD PLACER Daniele Mcfadden [facility] CPT-60753 Level 3 Est. Patient 10:12:24 ROD PLACER Daniele Mcfadden DO [facility] CPT-52046 Level 3 Est. Patient 14:35:11 ROD PLACER Daniele Mcfadden [facility] CPT-29061 Level 3 Est. Patient 14:11:04 CDT Daniele Mcfadden [facility] CPT-99204 Level 3 Est. Patient 10:52:13 CDT Alexander LOPEZ [facility] CPT-36334 Level 3 Est. Patient 11:01:08 ROD PLACER Daniele Mcfadden DO [facility] CPT-76401 Level 3 Est. Patient 10:55:35 CDT Daniele Mcfadden [facility] CPT-76373 Level 3 Est. Patient 14:03:08 CDT Daniele Mcfadden [facility] CPT-69324 Level 3 Est. Patient 11:26:19 CDT Margarito Kelley MD [facility] CPT-86196 Level 2 Est. Patient 15:32:04 ROD PLACER Daniele Mcfadden [facility] CPT-71818 Level 3 Est. Patient 16:01:26 ROD PLACER Daniele Mcfadden [facility] CPT-54569 Level 3 Est. Patient 06:37:10 ROD PLACER Daniele Salter [facility] Procedures Code Procedure Name Date Entry Date Standard Description CPT-OV Office Visit 14:45:12 ROD PLACER CPT-25271 Sono abd com inc all organs plus proximal aorta and distal IVC 2012 12:13:02 ROD PLACER CPT-95807 Abd compl w upright 15:12:58 ROD PLACER CPT-60311 Venipuncture Draw Fee 14:38:32 ROD PLACER CPT-67116 Administration single or combination vaccine inc oral 17 :10:04 CDT CPT-59190 Gardasil 17:10:04 CDT CPT-27046 Venipuncture Draw Fee 16:07:54 ROD PLACER CPT-94886 Administration 2+ single or combination vaccines inc oral 17:22:02 CDT CPT-89423 Administration single or combination vaccine inc oral 17 :22:02 CDT CPT-63246 Influenza split virus > age 3 17:22:02 CDT CPT-68465 Gardasil 17:22:02 CDT CPT-91633 Administration 2+ single or combination vaccines inc oral 14:38:31 CDT CPT-52334 Administration single or combination vaccine inc oral 14 :38:31 CDT CPT-03554 Meningococcal Conjugate Vacine (Menactra) 14:38:31 CDT CPT-35226 Gardasil 14:38:31 CDT
--- OUTSIDE RECORDS SUMMARY | 2018-02-15 07:39 | XMS REPORT | Clinical Summary ---
Author Author Admin, OLEG Organization [facility] Address Unknown Phone Unavailable Allergies, Adverse Reactions, [...] times daily for ten days 06/25 CEPHALEXIN 47490488774 No Longer Active Renée Adames APRN Active MEDROL (MARY) 4 MG TABS 6 pills on day 1, 5 pills on day 2, 4 pills on day 3, 4 pills on day 4, 2 pills on day 5, 1 pill on day 6 METHYLPREDNISOLONE 84896400336 No Longer Active Annita Mejia MD PhD Active ZITHROMAX Z-MARY 250 MG TABS 2 today and then 1 daily for 4 days AZITHROMYCIN 49585899123 No Longer Active Annita Mejia MD PhD Active GUAIFENESIN-CODEINE 100-10 MG/5ML SYRP 5ml every 4 to 6 hours as needed for cough GUAIFENESIN-CODEINE 88097174959 No Longer Active Annita Mejia MD PhD Active FLONASE 50 MCG/ACT SUSP 1 spray each nostril am and hs FLUTICASONE PROPIONATE 46586279236 No Longer Active Kendell Coronado MD Active MELOXICAM 15 MG TABS 1 po q day for pain with food MELOXICAM 20809033690 No Longer Active Kendell Coronado MD Active HYDROCODONE-ACETAMINOPHEN 5-325 MG TABS 1-2 q 4-6 hrs prn pain 20 tabs 07/04 HYDROCODONE-ACETAMINOPHEN 37717915524 No Longer Active Daniele Mcfadden DO Active PREDNISONE 20 MG TAB 1 tablet twice daily for 2 days, then 1 tablet once daily for 2 days PREDNISONE 08651202358 No Longer Active Daniele Mcfadden DO Active PREDNISONE 20 MG TAB 1 po bid 2 days, then daily for 2 days 12/27 PREDNISONE 15279229914 No Longer Active Alexander LOPEZ Active AZITHROMYCIN 250 MG TABS 2 po qd x 1 day, then 1 po qd x 4 days AZITHROMYCIN 47313631275 No Longer Active Daniele Mcfadden DO Active MUCINEX MAXIMUM STRENGTH WB82V-[facility] 1 po qd GUAIFENESIN XR12H- TAB 65912202727 No Longer Active Daniele Mcfadden DO Active AZITHROMYCIN 250 MG TABS 2 po qd x 1 day, then 1 po qd x 4 days AZITHROMYCIN 86721082746 No Longer Active Margarito Kelley MD Active PROAIR HFA 108 (90 BASE) MCG/ACT AERS 2 puffs every 4 hours as needed ALBUTEROL SULFATE 06995903415 Active Mckenna Mayo LPN Active E-Z SPACER ERIBERTO use with proair inhalier every 4 times as need. SPACER/ AERO-HOLDING CHAMBERS 68168311645 Active Mckenna Mayo LPN Active IRVING-D ALLERGY & CONGESTION ME33S-WDI 1 po bid FEXOFENADINE -PSEUDOEPHEDRINE DC98J-ZHU 36095950979 Active Daniele Mcfadden DO Active MUCINEX MAXIMUM STRENGTH ZB32Q-LVI 1 po qd MUCINEX MAXIMUM STRENGTH JK21H-HVP GUAIFENESIN AG78J-CNR Inactive PREDNISONE 20 MG TAB 1 po bid 2 days, then daily for 2 days 12/27 PREDNISONE 20 MG TAB 836460 PREDNISONE Inactive PREDNISONE 20 MG TAB 1 tablet twice daily for 2 days, then 1 tablet once daily for 2 days PREDNISONE 20 MG TAB 538444 PREDNISONE Inactive HYDROCODONE-ACETAMINOPHEN 5-325 MG TABS 1-2 q 4-6 hrs prn pain 20 tabs 07/04 HYDROCODONE-ACETAMINOPHEN 5-325 MG TABS 479755 HYDROCODONE- ACETAMINOPHEN Inactive MELOXICAM 15 MG TABS 1 po q day for pain with food MELOXICAM 15 MG TABS 363888 MELOXICAM Inactive FLONASE 50 MCG/ACT SUSP 1 spray each nostril am and hs FLONASE 50 MCG/ACT SUSP 508244 FLUTICASONE PROPIONATE Inactive GUAIFENESIN-CODEINE 100-10 MG/5ML SYRP 5ml every 4 to 6 hours as needed for cough GUAIFENESIN-CODEINE 100-10 MG/5ML SYRP 980176 GUAIFENESIN-CODEINE Inactive ZITHROMAX Z-MARY 250 MG TABS 2 today and then 1 daily for 4 days ZITHROMAX Z-MARY 250 MG TABS 3648772 AZITHROMYCIN Inactive AZITHROMYCIN 250 MG TABS 2 po qd x 1 day, then 1 po qd x 4 days AZITHROMYCIN 250 MG TABS 4647395 AZITHROMYCIN Inactive AZITHROMYCIN 250 MG TABS 2 po qd x 1 day, then 1 po qd x 4 days AZITHROMYCIN 250 MG TABS 2384994 AZITHROMYCIN Inactive MEDROL (MARY) 4 MG TABS 6 pills on day 1, 5 pills on day 2, 4 pills on day 3, 4 pills on day 4, 2 pills on day 5, 1 pill on day 6 MEDROL (MARY) 4 MG TABS METHYLPREDNISOLONE Inactive CEPHALEXIN 500 MG CAPS 1 tablet by mouth three times daily for ten days 06/25 CEPHALEXIN 500 MG CAPS 980764 CEPHALEXIN Inactive Immunizations Vaccine Administration Date Value Standard Description Human Papillomavirus vaccine (Gardasil) #2, (HPV #2) Gardasil [ CVX62] human papilloma virus vaccine, quadrivalent Seasonal influenza vaccine, injectable, containing preservative, for > 3 years old (Afluria, FluLaval, Fluzone, Fluvirin, Fluarix, Agriflu(>=18 yo)) Fluzone (>3 yrs.) [[id number]] Influenza, seasonal, injectable Human Papillomavirus Vaccine (Gardasil) #1 Given (HPV #1) Gardasil [CVX62] human papilloma virus vaccine, quadrivalent hepatitis A immunization #2 Havrix-Pedi hepatitis A vaccine, unspecified formulation Boostrix (Tetanus toxoid, reduced diphtheria toxoid and acellular pertussis vaccine, adsorbed), booster Boostrix [ZHX232] tetanus toxoid, reduced diphtheria toxoid, and acellular [...] Negative mg/dL Negative sodium, serum 136 mmol/L 841-855 5262/10/31 potassium, serum 4.4 mmol/L 3.5-5.2 chloride, serum [...] 5.0-8.5 Encounters Code Encounter Date Provider Facility CPT-66060 Level 3 Est. Patient 15:37:06 LABORER ORCHARD Daniele Mcfadden DO [facility] CPT-52147 Level 3 Est. Patient 11:56:34 LABORER ORCHARD Renée Adames APRN [facility] CPT-11261 Level 3 Est. Patient 12:19:42 CDT Daniele Mcfadden [facility] CPT-58241 Level 3 Est. Patient 11:08:45 CDT Annita Mejia MD [facility] CPT-53146 Level 3 Est. Patient 12:00:17 CDT Kendell Coronado MD [facility] CPT-36934 Level 3 Est. Patient 12:27:25 CDT Daniele Mcfadden [facility] CPT-42617 Level 3 Est. Patient 18:45:11 LABORER ORCHARD Daniele Mcfadden [facility] CPT-34765 Level 3 Est. Patient 10:12:24 LABORER ORCHARD Daniele Mcfadden [facility] CPT-40023 Level 3 Est. Patient 14:35:11 LABORER ORCHARD Daniele Mcfadden [facility] CPT-42930 Level 3 Est. Patient 14:11:04 CDT Daniele Mcfadden [facility] CPT-08606 Level 3 Est. Patient 10:52:13 CDT Alexander LOPEZ [facility] CPT-48030 Level 3 Est. Patient 11:01:08 LABORER ORCHARD Daniele Mcfadden [facility] CPT-19098 Level 3 Est. Patient 10:55:35 CDT Daniele Mcfadden [facility] CPT-06890 Level 3 Est. Patient 14:03:08 CDT Daniele Mcfadden [facility] CPT-65698 Level 3 Est. Patient 11:26:19 CDT Margarito Kelley MD [facility] CPT-16915 Level 2 Est. Patient 15:32:04 LABORER ORCHARD Daniele Mcfadden [facility] CPT-48601 Level 3 Est. Patient 16:01:26 LABORER ORCHARD Daniele Mcfadden [facility] CPT-44521 Level 3 Est. Patient 06:37:10 LABORER ORCHARD Daniele Mcfadden DO [facility] Procedures Code Procedure Name Date Entry Date Standard Description CPT-54382 Abd compl w upright 12:34:39 CDT CPT-89286 Immunization Single Admin 11:38:41 CDT CPT-70098 Fluzone Quadrivalent Intramuscular Suspension 0.5 ML 11: 38:41 CDT CPT-OV Office Visit 14:45:12 LABORER ORCHARD CPT-61015 Sono abd com inc all organs plus proximal aorta and distal IVC 2012 12:13:02 LABORER ORCHARD CPT-91570 Abd compl w upright 15:12:58 LABORER ORCHARD CPT-78258 Venipuncture Draw Fee 14:38:32 LABORER ORCHARD CPT-38419 Administration single or combination vaccine inc oral 17 :10:04 CDT CPT-49726 Gardasil 17:10:04 CDT CPT-47571 Venipuncture Draw Fee 16:07:54 LABORER ORCHARD CPT-20592 Administration 2+ single or combination vaccines inc oral 17:22:02 CDT CPT-13763 Administration single or combination vaccine inc oral 17 :22:02 CDT CPT-64402 Influenza split virus > age 3 17:22:02 CDT CPT-08505 Gardasil 17:22:02 CDT CPT-40465 Administration 2+ single or combination vaccines inc oral 14:38:31 CDT CPT-19274 Administration single or combination vaccine inc oral 14 :38:31 CDT CPT-80726 Meningococcal Conjugate Vacine (Menactra) 14:38:31 CDT [facility]-81355 Gardasil 14:38:31 CDT
[2018-02-15] MEDS ORDERED: MIDAZOLAM 2 MG/2 ML (VERSED) VIAL ONE (07:58)
[2018-02-15] MEDS ORDERED: DEXAMETHASONE 10 MG/ML (DECADRON) 1 ML VIAL ONE (08:13)
[2018-02-15] MEDS ORDERED: proPOfol 200 MG/20 ML (DIPRIVAN) VIAL IV ONE (08:13)
[2018-02-15] MEDS ORDERED: ROCURONIUM 10 MG/ML 5 ML SYRINGE IV ONE (08:13)
[2018-02-15] MEDS ORDERED: ONDANSETRON 4 MG/2 ML (SDV) Z0FRAN ONE (08:13)
[2018-02-15] MEDS ORDERED: LIDOCAINE PF 2% 5 ML (XYLOCAINE) VIAL ONE (08:13)
[2018-02-15] MEDS ORDERED: fentaNYL INJECTION 100 MCG/2 ML AMP ONE (08:17)
[2018-02-15] MEDS ORDERED: SEVOFLURANE (ULTANE) 15 ML INHAL SOLN ONE ×2 (08:19→09:21)
[2018-02-15] MEDS ORDERED: GLYCOPYRROLATE 0.2 MG/ML (ROBINUL) 2 ML VIAL ONE (08:20)
[2018-02-15] MEDS ORDERED: NEOSTIGMINE 1 MG/ML 5 ML SYRINGE ONE (08:20)
[2018-02-15] MEDS ORDERED: NS IV 1000 ML 1,000 ML IV SCH (08:43)
--- NOTE | 2018-02-15 08:43 | Progress Note-Post Operative ---
Post-Operative Progess Note Surgeon (s)/Financial Advisor Trainee (s) Surgeon TALHA MOODY MD Financial Advisor Trainee n/a Pre-Operative Diagnosis Rec Tons, Tonsilalr Hyper Post-Operative Diagnosis same Post-Op Procedure Note Date of Procedure: Feb 15, 2018 Name of Procedure Performed: T/A Description & Findings Description and Findings: n/a Anesthesia Type get Estimated Blood Loss minimal Packing none. Specimen(s) collected/removed tonsils TALHA MOODY MD Feb 15, 2018 8:43 am
[2018-02-15] MEDS ORDERED: APAP 325 MG/10.15 ML LIQ (TYLENOL) UDC PO PRN (08:45)
[2018-02-15] MEDS ORDERED: ONDANSETRON 4 MG/2 ML (SDV) Z0FRAN IVP PRN ×2 (08:45→09:00)
[2018-02-15] MEDS ORDERED: HYDROcodone/APAP 7.5MG-325 MG/15 ML (LORTAB) UDC PO PRN (08:45)
[2018-02-15] MEDS ORDERED: PROMETHAZINE INJ 25 MG/ML (PHENERGAN) AMP IVP PRN (09:00)
[2018-02-15] MEDS ORDERED: MEPERIDINE (DEMEROL) INJ 50 MG/ML IVP PRN (09:00)
[2018-02-15] MEDS ORDERED: HYDROmorphone 1 MG/ML (DILAUDID) 1 ML SYRINGE IV PRN (09:00)
[2018-02-15] MEDS ORDERED: morphine INJ 10 MG/ML 1ML (SYR OR VIAL) ONE (09:02)
[2018-02-15] MEDS: morphine INJ 10 MG/ML 1ML (SYR OR VIAL) IVP PRN ×2 (09:06→09:10)
[2018-02-15 09:30] VITALS: BP 118/68
[2018-02-15 10:00] VITALS: BP 124/67
--- NOTE | 2018-02-15 10:00 | Anesthesia-General Post-Op ---
General Patient Condition Mental Status/LOC: Same as Preop Cardiovascular: Satisfactory Nausea/Vomiting: Absent Respiratory: Satisfactory Pain: Controlled Complications: Absent Post Op Complications Complications None Follow Up Care/Instructions Patient Instructions None needed. Anesthesia/Patient Condition Patient Condition Patient is doing well, no complaints, stable vital signs, no apparent adverse anesthesia problems. No complications reported per nursing. D/C home per [facility] Criteria: No DANE ANDERS CRNA Feb 15, 2018 10:00
[2018-02-15 10:30] VITALS: BP 114/65
[2018-02-15] MEDS ORDERED: ONDA4TAB8 SL (10:43)
[2018-02-15] MEDS ORDERED: HYDR15SO8 PO (10:43)
[2018-02-15] MEDS ORDERED: DEXAINTSOL PO (10:43)
[2018-02-15] MEDS ORDERED: AZIT200S47 PO (10:43)
[2018-02-15] MEDS ORDERED: TETRACAINESUCKERS MT (10:43)
[2018-02-15 11:50] VITALS: BP 114/65
== END 2018-02-15 11:50 | disposition home or self-care (01) ==
LOC: SDC 06:20
PROVIDERS: ATTEND Otolaryngology Otolaryngology/Facial Plastic Surgery
DX: J35.01 Chronic tonsillitis (principal); J35.3 Hypertrophy of tonsils with hypertrophy of adenoids; J45.990 Exercise induced bronchospasm
CPT/HCPCS: 36415; 84703; 85025; 87081